=== PATIENT | female | born 1960 | race American Indian/Alaskan Native ===

== ENCOUNTER 2018-04-29 15:30 | Emergency (ER) | payer MEDICAID, OTHER, SELFPAY ==
[2018-04-29 15:48] VITALS: BP 145/84; PULSE 82; RESP 16; TEMP 35.6; O2SAT 100; BMI 35.9
[2018-04-29 17:37] LABS: RBC Urine None Seen (0-5/HPF)
[2018-04-29 17:47] LABS: Bacteria Urine Many (>30); Culture Indicated Urine Specimen Cultured; WBC Urine 5-10/HPF (0-5/HPF)
[2018-04-29 18:10] VITALS: BP 110/82; PULSE 79; RESP 18; O2SAT 98
--- NOTE | 2018-04-29 18:39 | ED.ABDPAIN ---
HPI - Abdominal Pain General Chief Complaint: Abdominal Pain Stated Complaint: stomach pain all week, nausea Time Seen by Provider: 04/29/18 18:07 Source: patient Mode of arrival: ambulatory Limitations: no limitations History of Present Illness HPI narrative: 57-year-old female here for evaluation of a couple days of right lower quadrant abdominal pain and dysuria. Patient states that he has been going on for the past couple days. No back pain. Has had some nausea. Nothing makes it better. Nothing makes it worse. She states that she had this exact same pain a couple months ago was seen in the emergency department and was diagnosed with a urinary tract infection was given antibiotics and she states that the symptoms went away. She stated that it was the exact pain that she has now. Related Data Home Medications Medication Instructions Recorded Confirmed acetaminophen 650 mg PO Q8H PRN #0 03/05/18 04/29/18 ascorbic acid (vitamin C) 500 mg PO QDAY #0 03/05/18 04/29/18 atorvastatin 40 mg PO QDAY #0 03/05/18 04/29/18 bisacodyl 10 mg NC PRN PRN #0 03/05/18 04/29/18 bisacodyl [Correctol] 10 mg PO PRN PRN #0 03/05/18 04/29/18 bisacodyl [Fleet Laxative] 5 mg PO PRN PRN #0 03/05/18 04/29/18 buprenorphine-naloxone [Suboxone] 1 preethi SUBLINGUAL QDAY #0 03/05/18 04/29/18 buspirone 30 mg PO BID #0 03/05/18 04/29/18 ferrous sulfate [Iron (ferrous 1 tab PO DAILY #0 03/05/18 04/29/18 sulfate)] fluticasone [Flonase Allergy 1 spray INTRANASAL QDAY #0 03/05/18 04/29/18 Relief] fluticasone-salmeterol [Advair HFA] 1 puff INH BID #0 03/05/18 04/29/18 hydroxyzine HCl 25 ng PO TID PRN #0 03/05/18 04/29/18 loratadine 10 mg PO QDAY #0 03/05/18 04/29/18 nortriptyline 25 mg PO HS #0 03/05/18 04/29/18 ondansetron HCl 4 mg PO Q4HP PRN #0 03/05/18 04/29/18 pantoprazole 40 mg PO BID #0 03/05/18 04/29/18 ranitidine HCl 150 mg PO BID #0 03/05/18 04/29/18 valsartan 160 mg PO QDAY #0 03/05/18 04/29/18 Lactobacillus acidophilus 1 cap PO BID 04/29/18 04/29/18 [Acidophilus] albuterol sulfate 2 puff INHALATION Q4H PRN 04/29/18 04/29/18 clotrimazole 1 applic TOPICAL Q12H PRN 04/29/18 04/29/18 ipratropium-albuterol [Combivent 1 puff INHALATION Q6H PRN 04/29/18 04/29/18 Respimat] lidocaine 1 patch TOPICAL DAILY 04/29/18 04/29/18 sertraline 150 mg PO DAILY 04/29/18 04/29/18 Previous Rx's Medication Instructions Recorded carvedilol [Coreg] 6.25 mg PO BID #60 tab 09/03/17 clopidogrel [Plavix] 75 mg PO QDAY #30 tab 09/03/17 ondansetron [Zofran ODT] 4 mg PO Q6H PRN #10 tab 04/29/18 sulfamethoxazole-trimethoprim 1 tab PO BID 3 Days #6 tab 04/29/18 [Bactrim DS] Allergies Allergy/AdvReac Type Severity Reaction Status Date / Time aspirin [ASPIRIN] Allergy Unknown Verified 04/29/18 15:48 ibuprofen [IBUPROFEN] Allergy Unknown Verified 04/29/18 15:48 ketorolac [From TORADOL] Allergy Unknown Verified 04/29/18 15:48 tramadol [TRAMADOL] Allergy Unknown Verified 04/29/18 15:48 Review of Systems Constitutional Denies chills, Denies fatigue, Denies fever(s), Denies lethargy and Denies weakness ENT Ears, Nose, Mouth, and Throat: Denies dysphagia Cardiovascular Denies chest pain, Denies irregular heart rhythm, Denies lightheadedness, Denies palpitations, Denies dyspnea, Denies dyspnea on exertion and Denies orthopnea Respiratory Denies cough, Denies dyspnea, Denies dyspnea on exertion and Denies wheezing Gastrointestinal Gastrointestinal: Reports abdominal pain (Right lower quadrant), Denies dysphagia, Denies diarrhea and Reports nausea Genitourinary Reports dysuria Musculoskeletal Denies back pain, Denies muscle weakness, Denies numbness and Denies tingling Integumentary/Breasts Denies pruritus, Denies erythema, Denies rash and Denies wounds Neurologic Denies numbness, Denies tingling and Denies weakness Endocrine Denies fatigue, Denies flushing and Denies palpitations Hematologic/Lymphatic Denies easy bruising Allergic/Immunologic Denies wheezing [facility] Medical History COPD (chronic obstructive pulmonary disease) (Acute) Stroke (Acute) Surgical History History of bilateral knee replacement (Acute) Social History Smoking Status: Former smoker Exam Initial Vital Signs Initial Vital Signs: Vital Signs Temperature 96.0 F L 04/29/18 15:48 Pulse Rate 82 04/29/18 15:48 Respiratory Rate 16 04/29/18 15:48 Blood Pressure 145/84 H 04/29/18 15:48 Pulse Oximetry 100 04/29/18 15:48 Chest Chest: normal inspection of the chest Resp Effort & Inspection: normal respiratory effort, able to speak in complete sentences, no respiratory distress and no use of accessory muscles Auscultation: clear to auscultation bilaterally, no rales, no rhonchi and no wheezes Cardio Rate: regular rate Rhythm: regular rhythm Heart Sounds: no click, no gallops, no murmurs and no rubs Pulses: normal peripheral pulses GI Inspection: normal to inspection and non-distended Palpation: soft, No firm, No guarding, No rigid and tender (Right lower quadrant) Back/Spine/Pelvis Back: No CVA tenderness Skin General: no rashes or lesions noted, No jaundice and No petechiae Neuro General: alert, oriented x3, gait normal and no focal motor deficits Speech: speech normal Extrem General: full ROM, no clubbing, cyanosis or edema, no pedal edema and no calf tenderness Course Orders Ordered: ED Orders 04/29/18 17:33 Urine Culture Stat Urine Microscopic Stat Discontinued Medications Acetaminophen (Tylenol) 650 mg PO NOW ONE Stop: 04/29/18 18:54 Last Admin: 04/29/18 18:55 Dose: 650 mg Trimethoprim/Sulfamethoxazole (Bactrim Ds) 1 tab PO NOW ONE Stop: 04/29/18 18:44 Last Admin: 04/29/18 18:52 Dose: 1 tab Vital Signs - 8 hr 04/29/18 18:10 Pulse Rate 79 Respiratory Rate 18 Blood Pressure [Left Arm] 110/82 H Pulse Oximetry 98 MDM - Abdominal Pain Lab Data Attestation: I reviewed the patient's lab results. Lab Results 04/29/18 Range/Units 17:33 Urine RBC None seen (0-5/HPF) Urine WBC 5-10/hpf H (0-5/HPF) Urine Bacteria Many (>30) H (None) Ur Culture Indicated? Specimen cultured Micro UA Comment Not Reportable MDM Narrative Medical decision making narrative: Patient with urinalysis consistent with urinary tract infection. She has no signs of pyelonephritis. She does have right lower quadrant pain and considered other intra-abdominal pathology however patient states that this is the exact pain that she had a month or so ago where she was diagnosed with the urinary tract infection and that the symptoms got better with antibiotics. Will hold on radiologic studies for now. She was given return precautions. She was given a 1st dose of antibiotics here in the emergency department and a prescription for antibiotics to take at home. She expressed understanding and agreement with plan. Discharge Plan Departure Patient Disposition: Home, Self-Care Clinical Impression: UTI (urinary tract infection), Abdominal pain Discharge Date/Time: 04/29/18 19:08 Interventions: ED Discharge Assessment Last Done: 04/29/18 19:15 Instructions: DI for Abdominal Pain-Adult Activity Restrictions/Additional Instructions: Recommend that you take all of your antibiotics as directed. Return to the emergency department for any new or worsening symptoms, inability to take your medications, vomiting despite the anti nausea medication, or any other concerning symptoms. Prescriptions: New sulfamethoxazole-trimethoprim [Bactrim DS] 800-160 mg tablet 1 tab PO BID 3 Days Qty: 6 RF: 0 ondansetron [Zofran ODT] 4 mg tablet,disintegrating 4 mg PO Q6H PRN (Reason: nausea and vomiting) Qty: 10 RF: 0 No Action carvedilol [Coreg] 6.25 MG tablet 6.25 mg PO BID Qty: 60 RF: 5 clopidogrel [Plavix] 75 MG tablet 75 mg PO QDAY Qty: 30 RF: 5 ascorbic acid (vitamin C) 500 MG tablet 500 mg PO QDAY Qty: 0 RF: 0 atorvastatin 40 MG tablet 40 mg PO QDAY Qty: 0 RF: 0 ferrous sulfate [Iron (ferrous sulfate)] 325 MG tablet 1 tab PO DAILY Qty: 0 RF: 0 fluticasone [Flonase Allergy Relief] 9.9 ML spray,suspension 1 spray Intranasal QDAY Qty: 0 RF: 0 loratadine 10 MG tablet 10 mg PO QDAY Qty: 0 RF: 0 nortriptyline 25 MG capsule 25 mg PO HS Qty: 0 RF: 0 pantoprazole 40 MG tablet,delayed release (DR/EC) 40 mg PO BID Qty: 0 RF: 0 buprenorphine-naloxone [Suboxone] 12 MG/3 MG film 1 preethi Sublingual QDAY Qty: 0 RF: 0 valsartan 160 MG tablet 160 mg PO QDAY Qty: 0 RF: 0 buspirone 30 MG tablet 30 mg PO BID Qty: 0 RF: 0 fluticasone-salmeterol [Advair HFA] 115 MCG/21 MCG HFA aerosol inhaler 1 puff INH BID Qty: 0 RF: 0 ranitidine HCl 150 MG tablet 150 mg PO BID Qty: 0 RF: 0 acetaminophen 325 MG tablet 650 mg PO Q8H PRN (Reason: Fever Or Pain) Qty: 0 RF: 0 bisacodyl 10 MG suppository 10 mg NC PRN PRN (Reason: Constipation) Qty: 0 RF: 0 bisacodyl [Fleet Laxative] 5 MG tablet,delayed release (DR/EC) 5 mg PO PRN PRN (Reason: Constipation) Qty: 0 RF: 0 bisacodyl [Correctol] 5 MG tablet 10 mg PO PRN PRN (Reason: Constipation) Qty: 0 RF: 0 hydroxyzine HCl 25 MG tablet 25 ng PO TID PRN (Reason: HIVES) Qty: 0 RF: 0 ondansetron HCl 4 MG tablet 4 mg PO Q4HP PRN (Reason: Nausea) Qty: 0 RF: 0 lidocaine 5 % Adhesive Patch,Medicated 1 patch TOPICAL DAILY RF: 0 Lactobacillus acidophilus [Acidophilus] Capsule 1 cap PO BID RF: 0 sertraline 50 MG tablet 150 mg PO DAILY RF: 0 albuterol sulfate 90 mcg/actuation Hfa Aerosol Inhaler 2 puff Inhalation Q4H PRN (Reason: Shortness Of Breath) RF: 0 ipratropium-albuterol [Combivent Respimat] 20-100 mcg/actuation Mist 1 puff INHALATION Q6H PRN (Reason: COPD) RF: 0 clotrimazole 1 % cream 1 applic Topical Q12H PRN (Reason: Rash) RF: 0
[2018-04-29] MEDS: SULFA/TRIMETH 800/160 (DS) TABLET 1 TAB PO (18:52)
[2018-04-29] MEDS: ACETAMINOPHEN 325 MG TABLET 650 MG PO (18:55)
== END 2018-04-29 19:08 | disposition home or self-care (01) ==
PROVIDERS: Internal Medicine; Emergency Provider Emergency Medicine; PCP Physician Assistant
DX: N39.0 Urinary tract infection, site not specified (principal); R10.9 Unspecified abdominal pain
CPT/HCPCS: 81003; 81015; 87086; 87186; 99282; 99283

== ENCOUNTER 2019-01-15 19:15 | Emergency (ER) | payer MEDICAID, SELFPAY ==
[2019-01-15 19:48] VITALS: BP 110/62; PULSE 75; RESP 18; TEMP 36.8; O2SAT 98
--- NOTE | 2019-01-15 19:54 | DI.RAD.S_ITS ---
PROCEDURE: XR CHEST 2V INDICATIONS: cough, chills, COPD TECHNIQUE: 2 views of the chest were acquired. COMPARISON: [facility], CR, XR CHEST 1 VIEW, 12/27/2018, 23:[address]. [facility], CR, CHEST 1 VIEW, 03/05/2018, 16:44. FINDINGS: Surgical changes and devices: None. Lungs and pleura: Lungs are clear. No pleural effusions or pneumothorax. Mediastinum: Mediastinal contours are normal. Heart size is normal. Bones and chest wall: No suspicious bony abnormalities. Soft tissues appear unremarkable. IMPRESSION: Normal chest, stable. Dictated by: Michaela Huffman M.D. on 01/15/2019 at 20:13 Approved by: Michaela Huffman M.D. on 01/15/2019 at 20:19
[2019-01-15 20:22] LABS: Influenza A and B by PCR Rapid Negative (Negative)
--- NOTE | 2019-01-15 21:54 | PC.NURSE ---
Called by registration stating pt had left.
--- NOTE | 2019-01-17 05:49 | ED.ABDPAIN ---
HPI - Abdominal Pain General Chief Complaint: Abdominal Pain Stated Complaint: throwing up for a couple days Related Data Home Medications Medication Instructions Recorded Confirmed ascorbic acid (vitamin C) 500 mg PO QDAY #0 03/05/18 04/29/18 atorvastatin 40 mg PO QDAY #0 03/05/18 04/29/18 bisacodyl 10 mg OK PRN PRN #0 03/05/18 04/29/18 bisacodyl [Correctol] 10 mg PO PRN PRN #0 03/05/18 04/29/18 bisacodyl [Fleet Laxative] 5 mg PO PRN PRN #0 03/05/18 04/29/18 buprenorphine-naloxone [Suboxone] 1 preethi SUBLINGUAL QDAY #0 03/05/18 04/29/18 buspirone 30 mg PO BID #0 03/05/18 04/29/18 ferrous sulfate [Iron (ferrous 1 tab PO DAILY #0 03/05/18 04/29/18 sulfate)] fluticasone [Flonase Allergy 1 spray INTRANASAL QDAY #0 03/05/18 04/29/18 Relief] fluticasone-salmeterol [Advair HFA] 1 puff INH BID #0 03/05/18 04/29/18 hydroxyzine HCl 25 ng PO TID PRN #0 03/05/18 04/29/18 loratadine 10 mg PO QDAY #0 03/05/18 04/29/18 nortriptyline 25 mg PO HS #0 03/05/18 04/29/18 ondansetron HCl 4 mg PO Q4HP PRN #0 03/05/18 04/29/18 pantoprazole 40 mg PO BID #0 03/05/18 04/29/18 ranitidine HCl 150 mg PO BID #0 03/05/18 04/29/18 valsartan 160 mg PO QDAY #0 03/05/18 04/29/18 Lactobacillus acidophilus 1 cap PO BID 04/29/18 04/29/18 [Acidophilus] albuterol sulfate 2 puff INHALATION Q4H PRN 04/29/18 04/29/18 clotrimazole 1 applic TOPICAL Q12H PRN 04/29/18 04/29/18 ipratropium-albuterol [Combivent 1 puff INHALATION Q6H PRN 04/29/18 04/29/18 Respimat] lidocaine 1 patch TOPICAL DAILY 04/29/18 04/29/18 sertraline 150 mg PO DAILY 04/29/18 04/29/18 Previous Rx's Medication Instructions Recorded carvedilol [Coreg] 6.25 mg PO BID #60 tab 09/03/17 clopidogrel [Plavix] 75 mg PO QDAY #30 tab 09/03/17 ondansetron [Zofran ODT] 4 mg PO Q6H PRN #10 tab 04/29/18 acetaminophen 325 mg tablet 650 mg PO Q8H PRN #100 tab 11/29/18 Allergies Allergy/AdvReac Type Severity Reaction Status Date / Time aspirin [ASPIRIN] Allergy Unknown Verified 01/15/19 19:53 ibuprofen [IBUPROFEN] Allergy Unknown Verified 01/15/19 19:53 ketorolac [From TORADOL] Allergy Unknown Verified 01/15/19 19:53 tramadol [TRAMADOL] Allergy Unknown Verified 01/15/19 19:53 PFSH Social History Smoking Status: Former smoker Exam Initial Vital Signs Initial Vital Signs: Vital Signs Temperature 98.3 F 01/15/19 19:48 Pulse Rate 75 01/15/19 19:48 Respiratory Rate 18 01/15/19 19:48 Blood Pressure 110/62 01/15/19 19:48 Pulse Oximetry 98 01/15/19 19:48 Course Orders Ordered: Discontinued Medications Ondansetron HCl (Zofran) 4 mg IV NOW ONE Stop: 01/15/19 19:56 MDM - Abdominal Pain Lab Data Lab Results 01/15/19 Range/Units 19:53 Influenza A & B (PCR) Negative (Negative) Discharge Plan Departure Patient Disposition: Left Without Being Seen Clinical Impression: Patient left without being seen Discharge Date/Time: 01/15/19 21:55 Interventions: ED Discharge Assessment Last Done: 01/15/19 22:28
== END 2019-01-15 21:55 | disposition left against medical advice (07) ==
PROVIDERS: Emergency Provider Emergency Medicine; PCP Physician Assistant
DX: R10.9 Unspecified abdominal pain (principal)
CPT/HCPCS: 71046; 87400; 99282

== ENCOUNTER 2019-12-07 04:39 | Emergency (ER) | payer MEDICAID, SELFPAY ==
--- NOTE | 2019-12-07 04:48 | ED_ITS ---
HPI - General Adult <Nacho Santizo DO - Last Filed: 12/07/19 21:35> General Chief complaint: Extremity Problem,Nontraumatic Stated complaint: ETOH Time Seen by Provider: 12/07/19 04:48 Source: patient and EMS Mode of arrival: EMS Limitations: language barrier and other (Intoxication) History of Present Illness HPI narrative: Patient is a 59-year-old female sent over from the [facility] for concerns of wheezing and intoxication. EMS reports that they were called because the care facility found the patient intoxicated with upwards of 8 mini bottles of vodka around her. Patient did tell EMS that she did not fall. Did not hit her head. Initially there was reports that the patient was wheezing. In our EMR she does have a history of COPD and is on albuterol. EMS stated that she was not wheezing upon their arrival. They provided no nebulizer treatments and round. They stated that the care facility wanted the patient evaluated because of the intoxication. EMS stated that initially the patient did not want to come to the ER but then stated that she did want a come. Complaining of right hip pain. No reports of falls. Related Data Home Medications Medication Instructions Recorded Confirmed ranitidine HCl 150 mg PO BID #0 03/05/18 12/07/19 albuterol sulfate 2 puff INHALATION Q4H PRN 04/29/18 12/07/19 clotrimazole 1 applic TOPICAL Q12H PRN 04/29/18 12/07/19 acetaminophen 650 mg PO Q4H PRN 12/07/19 12/07/19 acetaminophen [Acetaminophen Extra 500 - 1,000 mg PO Q8H PRN 12/07/19 12/07/19 Strength] albuterol sulfate 2.5 mg INHALATION Q4H PRN 12/07/19 12/07/19 carvedilol 12.5 mg PO BID 12/07/19 12/07/19 hydrochlorothiazide 12.5 mg PO QAM 12/07/19 12/07/19 Allergies Allergy/AdvReac Type Severity Reaction Status Date / Time aspirin [ASPIRIN] Allergy Unknown Verified 01/15/19 19:53 ibuprofen [IBUPROFEN] Allergy Unknown Verified 01/15/19 19:53 ketorolac [From TORADOL] Allergy Unknown Verified 01/15/19 19:53 tramadol [TRAMADOL] Allergy Unknown Verified 01/15/19 19:53 Review of Systems <DO Ngoc Weiss Last Filed: 12/07/19 21:35> Respiratory Respiratory: Reports wheezing (Patient denies this) Gastrointestinal Gastrointestinal: Denies abdominal pain Musculoskeletal Comments: Right hip pain Neurologic Neurologic: Reports behavioral changes Psychiatric Psychiatric: Reports behavioral changes Comments: Intoxication Allergic/Immunologic Allergic/Immunologic: Reports wheezing (Patient denies this) Patient History <DO Ngoc Weiss Last Filed: 12/07/19 21:35> Medical History COPD (chronic obstructive pulmonary disease) (Acute) Stroke (Acute) Surgical History History of bilateral knee replacement (Acute) Social History Smoking Status: Former smoker Smoking Status: Former smoker alcohol intake frequency: 0-2 drinks per day Substance Use Type: does not use Exam <DO Ngoc Weiss Last Filed: 12/07/19 21:35> Initial Vital Signs Initial Vital Signs: Vital Signs Temperature 97.5 F L 12/07/19 04:56 Pulse Rate 84 12/07/19 04:56 Respiratory Rate 20 12/07/19 04:56 Blood Pressure 121/66 12/07/19 04:56 Pulse Oximetry 95 12/07/19 04:56 Const Orientation: awake, oriented to place and oriented to time HENMT Head: normal to inspection and normocephalic Resp Effort & Inspection: normal respiratory effort Auscultation: clear to auscultation bilaterally Cardio Rate: regular rate Rhythm: regular rhythm Skin Lesions: no lesions Rashes: no rashes Neuro Other: Patient does move all 4 extremities. Was speaking Persian upon arrival however can speaking Sami. Knew that she was in [place] , knew the year, new or date. Knew that she was drinking this evening. Extrem Other: Moves all 4 extremities spontaneously. Complaining of right hip pain. Psych Appearance: well kempt <Mariaa Pierre DO - Last Filed: 12/07/19 11:44> Initial Vital Signs Initial Vital Signs: Vital Signs Temperature 97.5 F L 12/07/19 04:56 Pulse Rate 84 12/07/19 04:56 Respiratory Rate 20 12/07/19 04:56 Blood Pressure 121/66 12/07/19 04:56 Pulse Oximetry 95 12/07/19 04:56 Course <DO Ngoc Weiss Last Filed: 12/07/19 21:35> Orders Ordered: Discontinued Medications Acetaminophen (Tylenol) 975 mg PO NOW ONE Stop: 12/07/19 09:54 Last Admin: 12/07/19 10:00 Dose: 975 mg Documented by: [facility] Vital Signs Vital signs: Vital Signs - 8 hr 12/07/19 04:56 12/07/19 05:49 12/07/19 10:03 Temperature 97.5 F L Pulse Rate 84 90 77 Respiratory Rate 20 29 H 17 Blood Pressure 121/66 Blood Pressure [Right Wrist] 138/73 152/73 H Pulse Oximetry 95 97 98 <DO Ngoc Lang Last Filed: 12/07/19 11:44> Orders Ordered: Discontinued Medications Acetaminophen (Tylenol) 975 mg PO NOW ONE Stop: 12/07/19 09:54 Last Admin: 12/07/19 10:00 Dose: 975 mg Documented by: [facility]I Vital Signs Vital signs: Vital Signs - 8 hr 12/07/19 04:56 12/07/19 05:49 12/07/19 10:03 Temperature 97.5 F L Pulse Rate 84 90 77 Respiratory Rate 20 29 H 17 Blood Pressure 121/66 Blood Pressure [Right Wrist] 138/73 152/73 H Pulse Oximetry 95 97 98 Medical Decision Making <DO Ngoc Weiss Last Filed: 12/07/19 21:35> Imaging Data Extremity x-ray #1: Radiologist's Impression: Right hip DJD MDM Narrative Medical decision making narrative: Patient was complaining of right hip pain. Initial x-ray I had some concern about potential compression fracture. Radiologic read shows no acute fractures. Patient has been able to stand on her hip since this time. She has use the bedside commode. She has absent intoxicated. Other signs of trauma. No family listed in the EMR. Will watch the patient in the emergency department until she is clinically sober and can be dispositioned back to her assisted living facility. Care turned over to day provider. <DO Ngoc Lang Last Filed: 12/07/19 11:44> Imaging Data Extremity x-ray #1: Radiologist's Impression: PROCEDURE: XR HIP W PEL IF DONE RT 2V INDICATIONS: Pain eval for fracture or dislocation TECHNIQUE: AP pelvis with lateral view(s) of the right hip(s). COMPARISON: None. FINDINGS: Bones: No fractures or dislocations. Pelvic ring appears intact. No suspicious bony lesions. Moderate right hip osteoarthritis. Soft tissues: The visualized bowel gas pattern is normal. No suspicious soft tissue calcifications. IMPRESSION: No fracture. No acute osseous lesion. If symptoms and/or clinical suspicion for pathology persists, further assessment with repeat radiographs (7-10 days) or advanced imaging (e.g. CT, MRI or bone scan) may be helpful. Dictated by: Angela Rudd MD, PhD on 12/07/2019 at 9:33 Approved by: Angela Rudd MD, PhD on 12/07/2019 at 9:34 [facility] Narrative Medical decision making narrative: Patient signed out to me by Dr. Santizo, have seen evaluated patient myself, patient is awake alert oriented. She is ambulatory with a walker. X-rays negative. Discharge Plan Departure Patient Disposition: Home Clinical Impression: Alcohol intoxication Qualifiers: Complication of substance-induced condition: with unspecified complication Qualified Code(s): F10.929 - Alcohol use, unspecified with intoxication, unspecified Discharge Date/Time: 12/07/19 10:40 Instructions: Alcohol Use Disorder Activity Restrictions/Additional Instructions: No driving for the next 24 hours or in the future if you partake in intoxicating substances. Continue all of your medications as directed. Recommend you contact your primary provider for follow-up in the next 2-3 days. Prescriptions: No Action ranitidine HCl 150 MG tablet 150 mg PO BID Qty: 0 RF: 0 albuterol sulfate 90 mcg/actuation Hfa Aerosol Inhaler 2 puff Inhalation Q4H PRN (Reason: Shortness Of Breath) RF: 0 clotrimazole 1 % cream 1 applic Topical Q12H PRN (Reason: Rash) RF: 0 acetaminophen 325 mg Tablet 650 mg PO Q4H PRN (Reason: Fever Or Pain) RF: 0 carvedilol 12.5 mg tablet 12.5 mg PO BID RF: 0 albuterol sulfate 2.5 mg /3 mL (0.083 %) Solution For Nebulization 2.5 mg inhalation Q4H PRN (Reason: Wheezing) RF: 0 acetaminophen [Acetaminophen Extra Strength] 500 mg Tablet 500 - 1,000 mg PO Q8H PRN (Reason: Fever Or Pain) RF: 0 hydrochlorothiazide 25 mg tablet 12.5 mg PO QAM RF: 0 Referrals: Cortez Plata PA-C [Primary Care Provider] - ED Sign-out <Nacho Santizo, - Last Filed: 12/07/19 21:35> Sign Out Provider Sign Out Attestation: Dr Santizo Co-Sign Statement: I was available for consultation during this patient's emergency department visit. This chart is signed by myself for administrative purposes only. I did not have direct contact with this patient during this visit. They were seen independently by kenneth DIGGS.
[2019-12-07 04:56] VITALS: BP 121/66; PULSE 84; RESP 20; TEMP 36.4; O2SAT 95
[2019-12-07 05:49] VITALS: BP 138/73; PULSE 90; RESP 29; O2SAT 97
--- NOTE | 2019-12-07 09:52 | PC.NURSE ---
Patient ambulated in hallways to bathroom with walker with steady gait. Ok to DC per Dr. Pierre.
[2019-12-07] MEDS: ACETAMINOPHEN 325 MG TABLET 975 MG PO (10:00)
--- NOTE | 2019-12-07 10:01 | PC.NURSE ---
0940 Patient dressed and sitting up in wheelchair in room.
--- NOTE | 2019-12-07 10:02 | PC.NURSE ---
0980 Patient sitting eating breakfast tray and drinking coffee/orange juice. I called [facility] and they will come and get the patient. Nurse to nurse report given.
[2019-12-07 10:03] VITALS: BP 152/73; PULSE 77; RESP 17; O2SAT 98
== END 2019-12-07 10:40 | disposition home or self-care (01) ==
PROVIDERS: Emergency Provider Emergency Medicine; PCP Physician Assistant
DX: F10.929 Alcohol use, unspecified with intoxication, unspecified (principal); M25.551 Pain in right hip
CPT/HCPCS: 73502; 99283

== ENCOUNTER → 2020-01-02 17:37 | Outpatient (ROUT) | payer MEDICAID, SELFPAY ==
[2020-01-02 17:40] LABS: RBC Urine None Seen (0-5/HPF)
[2020-01-02 17:50] LABS: Appearance Urine UA SL CLOUDY; Bilirubin Urine UA NEGATIVE (NEGATIVE); Color Urine UA YELLOW; Glucose Urine UA NEGATIVE (Negative); Ketones Urine UA NEGATIVE (NEGATIVE); Leukocyte Esterase Urine UA TRACE (NEGATIVE); Nitrite Urine UA NEGATIVE (Negative); Occult Blood Urine UA NEGATIVE (Negative); Protein Urine UA NEGATIVE (Negative); Urobilinogen Urine UA 0.2 E.U./dL (0.2)
[2020-01-02 18:01] LABS: Bacteria Urine Many (>30); Culture Indicated Urine Specimen Cultured; Squamous Epithelial Cell Urine 1-5 /HPF (0-5/HPF); WBC Urine 5-10/HPF (0-5/HPF)
== END ==
PROVIDERS: PCP Physician Assistant
DX: R30.0 Dysuria (principal); R35.0 Frequency of micturition; R39.15 Urgency of urination
CPT/HCPCS: 81001; 87077; 87086; 87186

== ENCOUNTER 2020-01-30 19:29 | Emergency (ER) | payer MEDICAID, SELFPAY ==
[2020-01-30 19:25] VITALS: BP 194/97; PULSE 72; RESP 24; TEMP 36.8; O2SAT 94
--- NOTE | 2020-01-30 19:40 | DI.RAD.S_ITS ---
PROCEDURE: XR HIP W PEL IF DONE RT 2V INDICATIONS: fall, right hip pain TECHNIQUE: AP pelvis with lateral view(s) of the right hip(s). COMPARISON: [facility], , XR HIP W PEL IF DONE RT 2V, 12/07/2019, 4:53. FINDINGS: Bones: Moderate to severe right hip joint osteoarthritic changes are seen. No fractures or dislocations. No evidence of avascular necrosis of femoral head. Pelvic ring appears intact. No suspicious bony lesions. Soft tissues: The visualized bowel gas pattern is normal. No suspicious soft tissue calcifications. IMPRESSION: Moderate to severe right hip joint osteoarthritis. No acute fracture or dislocation. Dictated by: Leoncio Adair M.D. on 01/30/2020 at 20:49 Approved by: Leoncio Adair M.D. on 01/30/2020 at 20:50
--- NOTE | 2020-01-30 19:40 | DI.RAD.S_ITS ---
PROCEDURE: XR CHEST 1V INDICATIONS: COPD TECHNIQUE: One view of the chest was acquired. COMPARISON: [facility], CR, XR CHEST 2V, 01/15/2019, 19:59. FINDINGS: Surgical changes and devices: None. Lungs and pleura: Lungs are clear. No pleural effusions or pneumothorax. Mediastinum: Mediastinal contours appear normal. Heart size is normal. Bones and chest wall: No suspicious bony lesions. Overlying soft tissues appear unremarkable. IMPRESSION: No acute cardiopulmonary pathology. Dictated by: Leoncio Adair M.D. on 01/30/2020 at 20:50 Approved by: Leoncio Adair M.D. on 01/30/2020 at 20:50
--- NOTE | 2020-01-30 19:40 | DI.RAD.S_ITS ---
PROCEDURE: XR FEMUR RT MIN 2V INDICATIONS: Fall, right hip and femur pain TECHNIQUE: 4 views of the femur were acquired. COMPARISON: None. FINDINGS: Bones: There is prior right total knee arthroplasty. No gross hardware loosening or failure. Moderate to severe right hip joint osteoarthritic changes are seen. No fractures or dislocations. No suspicious bony lesions. Soft tissues: No suspicious soft tissue calcifications or masses. IMPRESSION: Moderate to severe right hip joint osteoarthritis. Prior right total knee arthroplasty. No acute right femoral fracture or dislocation. Dictated by: Leoncio Adair M.D. on 01/30/2020 at 20:48 Approved by: Leoncio Adair M.D. on 01/30/2020 at 20:49
--- NOTE | 2020-01-30 19:43 | ED_ITS ---
HPI - Fall General Chief Complaint: Fall Time Seen by Provider: 01/30/20 19:36 Source: patient and EMS Mode of arrival: EMS Limitations: no limitations History of Present Illness HPI Narrative: The patient is a resident of [facility]. She has COPD and CHF. She goes for walks. She was drinking alcohol tonight. She fell outside the facility, estimated down time was 20 minutes before she was found and assisted by EMS. She does have mild tenderness to back her head, no LOC. No neck pain. No spine pain. No upper extremity or chest injury. She has COPD and CHF, but is speaking in full sentences. She has no apparent dyspnea. She has pain to the right hip and right femur. She has no left hip pain. She denies tenderness in the knees, or lower extremities. She has no numbness or weakness in lower extremities. She denies orthopnea, chest pain, or peripheral edema at the time arrival. Related Data Home Medications Medication Instructions Recorded Confirmed ranitidine HCl 150 mg PO BID #0 03/05/18 12/07/19 albuterol sulfate 2 puff INHALATION Q4H PRN 04/29/18 12/07/19 clotrimazole 1 applic TOPICAL Q12H PRN 04/29/18 12/07/19 acetaminophen 650 mg PO Q4H PRN 12/07/19 12/07/19 acetaminophen [Acetaminophen Extra 500 - 1,000 mg PO Q8H PRN 12/07/19 12/07/19 Strength] albuterol sulfate 2.5 mg INHALATION Q4H PRN 12/07/19 12/07/19 carvedilol 12.5 mg PO BID 12/07/19 12/07/19 hydrochlorothiazide 12.5 mg PO QAM 12/07/19 12/07/19 Allergies Allergy/AdvReac Type Severity Reaction Status Date / Time aspirin [ASPIRIN] Allergy Unknown Verified 01/15/19 19:53 ibuprofen [IBUPROFEN] Allergy Unknown Verified 01/15/19 19:53 ketorolac [From TORADOL] Allergy Unknown Verified 01/15/19 19:53 tramadol [TRAMADOL] Allergy Unknown Verified 01/15/19 19:53 Review of Systems Review of Systems ROS Unobtainable: All systems reviewed & are unremarkable except as noted in HPI and below Constitutional Constitutional: Denies chills, Denies fever(s), Reports headache(s) and Denies weakness Eyes Eyes: Denies eye discharge, Denies irritation and Denies loss of vision ENT Ears, Nose, Mouth, and Throat: Denies change in voice, Reports headache(s), Denies neck pain and Denies sore throat Cardiovascular Cardiovascular: Denies chest pain, Denies dyspnea and Denies orthopnea Respiratory Respiratory: Denies cough, Denies dyspnea and Denies wheezing Gastrointestinal Gastrointestinal: Denies abdominal pain, Denies diarrhea, Denies nausea and Denies vomiting Musculoskeletal Musculoskeletal: Denies back pain and Denies neck pain Comments: No extremity injuries Integumentary/Breasts Skin/Breast: Denies pruritus, Denies erythema, Denies rash and Denies wounds Neurologic Neurologic: Denies confusion, Reports headache(s), Denies loss of vision and Denies weakness Psychiatric Psychiatric: Denies anxiety, Denies confusion and Denies depression Allergic/Immunologic Allergic/Immunologic: Denies wheezing Patient History Medical History COPD (chronic obstructive pulmonary disease) (Acute) Stroke (Acute) Surgical History History of bilateral knee replacement (Acute) Social History Smoking Status: Former smoker Smoking Status: Former smoker alcohol intake frequency: 0-2 drinks per day Substance Use Type: does not use Exam Initial Vital Signs Initial Vital Signs: Vital Signs Temperature 98.3 F 01/30/20 19:25 Pulse Rate 72 01/30/20 19:25 Respiratory Rate 24 01/30/20 19:25 Blood Pressure 194/97 H 01/30/20 19:25 Pulse Oximetry 94 01/30/20 19:25 Const General: cooperative and well developed Nutritional Appearance: well nourished Limitations: mental status not altered Other: She smells of alcohol. She answers questions correctly. [facility] Head: normal to inspection, normocephalic, No abrasion and other (Occipital tenderness without deformity) Ears: TM's normal bilaterally Nose: nares normal Face and sinus: normal facial exam Mouth: oral mucosae normal Throat: posterior oropharynx normal Eyes General: appearance normal, both eyes and all related structures Eyelids: eyelids normal Conjunctivae: conjunctivae normal Sclera: sclerae normal Pupils: PERRL EOM: EOM intact bilaterally Neck Neck: full ROM and No tender Chest Chest: normal inspection of the chest Resp Effort & Inspection: normal respiratory effort, able to speak in complete sen tences, no respiratory distress and no use of accessory muscles Auscultation: clear to auscultation bilaterally, no rales, no rhonchi and no wheezes Cardio Rate: regular rate Rhythm: regular rhythm Heart Sounds: S1 normal, S2 normal, no click, no gallops, no murmurs and no rubs Pulses: normal peripheral pulses GI Inspection: obesity Palpation: soft, no hepatosplenomegaly, No guarding and No tender Auscultation: normal bowel sounds Back/Spine/Pelvis Back: No CVA tenderness Cervical Spine: cervical ROM normal and No pain with cervical ROM Thoracic/Lumbar Spine: thoracic and lumbar spine normal to inspection Skin General: no rashes or lesions noted Neuro General: alert, oriented x3 and no focal motor deficits Speech: speech normal Extrem Other: Upper extremities are atraumatic. Left legs atraumatic. She has tenderness to the right hip and right femur. There is no abrasion or contusion. She has pain with motion, but no palpable defect. There is no shortening or malrotation to the right leg. The right knee and lower extremities otherwise intact. Dorsalis pedis pulses are normal both legs. Psych Appearance: disheveled Mental Status: mental status grossly normal Speech and Movement: speech and movement normal Attitude: cooperative Thought Content: normal Other: She is intoxicated, seems drowsy. Course Orders Ordered: ED Orders 01/30/20 19:25 Complete Blood Count AUTO DIFF Stat Comprehensive Metabolic Panel Stat Ethanol (ETOH) Stat Lipase Stat Magnesium Stat Prothrombin Time INR Stat 01/30/20 19:40 XR chest 1V Stat XR femur RT min 2V Stat XR hip w pel if done RT 2V Stat 01/30/20 19:46 EKG-12 Lead Stat 01/30/20 20:12 CT cervical spine wo con Stat CT head/brain wo con Stat Discontinued Medications Acetaminophen (Tylenol) 975 mg PO NOW ONE Stop: 01/30/20 20:55 Last Admin: 01/30/20 21:20 Dose: 975 mg Documented by: BEV Albuterol/Ipratropium (Duoneb) 3 ml INH NOW ONE Stop: 01/30/20 21:54 Last Admin: 01/30/20 21:59 Dose: 3 ml Documented by: ANTHONY Vital Signs Vital signs: Vital Signs - 8 hr 01/30/20 19:25 01/30/20 20:46 01/30/20 22:00 Temperature 98.3 F Pulse Rate 72 78 73 Respiratory Rate 24 22 24 Blood Pressure 194/97 H Blood Pressure [Right Wrist] 126/69 145/67 H Pulse Oximetry 94 99 100 MDM - Fall Lab Data Result diagrams: 01/30/20 19:25 01/30/20 19:25 Labs: Lab Results 01/30/20 01/30/20 01/30/20 Range/Units 19:25 19:25 19:25 WBC 9.8 (4.5-11.0) X10^3/uL RBC 4.35 (4.0-5.2) X10^6/uL Hgb 12.8 (12.0-16.0) g/dL Hct 38.3 (36-46) % MCV 87.9 (80-100) fL MCH 29.5 (26-34) PG MCHC 33.5 (30-36) % RDW 13.4 (11.6-14.8) % Plt Count 368 (150-400) X10^3/uL Neut % (Auto) 55.3 (50-75) % Lymph % (Auto) 32.6 (25-40) % Ware % (Auto) 8.7 (3-14) % Eos % (Auto) 2.2 (2-4) % Baso % (Auto) 1.2 (0-2) % Neut # (Auto) 5400 (8739-5867) /uL Lymph # (Auto) 3200 (6630-9261) /uL Ware # (Auto) 800 (0-900) /uL Eos # (Auto) 200 (0-450) /uL Baso # (Auto) 100 (0-100) /uL PT 11.0 (10.1-12.7) SECONDS INR 1.0 (0.9-1.3) Sodium 140 (137-145) mmol/L Potassium 3.7 (3.4-5.1) mmol/L Chloride 97 L (98-107) mmol/L Carbon Dioxide 32 (22-32) mmol/L BUN 11 (7-17) mg/dL Creatinine 0.50 L (0.52-1.04) mg/dL Estimated GFR > 60.0 (>60) mL/min BUN/Creatinine Ratio 22.0 (6-22) Glucose 93 (70-100) mg/dL Calcium 8.8 (8.4-10.2) mg/dL Magnesium 2.2 (1.6-2.3) mg/dL Total Bilirubin 0.3 (0.2-1.3) mg/dL AST 31 (14-36) IU/L ALT 15 (<35) IU/L Alkaline Phosphatase 114 (38-126) U/L Total Protein 7.7 (6.3-8.2) g/dL Albumin 4.4 (3.5-5.0) g/dL Globulin 3.3 (1.7-4.1) g/dL Albumin/Globulin Ratio 1.3 (1.0-2.8) Lipase 335 H (23-300) U/L Ethyl Alcohol 241 H ( - 10) mg/dL Point of Care Testing Glucose POC [address] scan - head: Radiologist's Impression: No acute process CT - cervical spine: Radiologist's Impression: No fracture. No acute findings. Chest x-ray: Radiologist's Impression: Normal Pelvis/right hip: Radiologist's Impression: Right hip osteoarthritis, no fracture. Right femur x-ray: Radiologist's Impression: Right hip osteoarthritis, no fracture Discharge Plan Departure Patient Disposition: Home Clinical Impression: Osteoarthritis of right hip Qualifiers: Osteoarthritis type: primary Qualified Code(s): M16.11 - Unilateral primary osteoarthritis, right hip Alcohol intoxication Qualifiers: Complication of substance-induced condition: uncomplicated Qualified Code(s): F10.920 - Alcohol use, unspecified with intoxication, uncomplicated Discharge Date/Time: 01/30/20 22:46 Instructions: DI for Osteoarthritis Activity Restrictions/Additional Instructions: Tylenol 2 tablets every 4 hours as needed for pain. I would advise you limit her alcohol intake, your alcohol intake likely contribute to the injury this evening. Recheck with her doctor in 1 week if the right hip is not feel any better. Return to the ER if necessary. Prescriptions: No Action ranitidine HCl 150 MG tablet 150 mg PO BID Qty: 0 RF: 0 albuterol sulfate 90 mcg/actuation Hfa Aerosol Inhaler 2 puff Inhalation Q4H PRN (Reason: Shortness Of Breath) RF: 0 clotrimazole 1 % cream 1 applic Topical Q12H PRN (Reason: Rash) RF: 0 acetaminophen 325 mg Tablet 650 mg PO Q4H PRN (Reason: Fever Or Pain) RF: 0 carvedilol 12.5 mg tablet 12.5 mg PO BID RF: 0 albuterol sulfate 2.5 mg /3 mL (0.083 %) Solution For Nebulization 2.5 mg inhalation Q4H PRN (Reason: Wheezing) RF: 0 acetaminophen [Acetaminophen Extra Strength] 500 mg Tablet 500 - 1,000 mg PO Q8H PRN (Reason: Fever Or Pain) RF: 0 hydrochlorothiazide 25 mg tablet 12.5 mg PO QAM RF: 0 Referrals: Leo Landa MD [Primary Care Provider] -
[2020-01-30 19:54] LABS: Add Manual Diff / Slide Review NO; Basophils Absolute Auto 100 /uL (0-100); Basophils Percent Auto 1.2 % (0-2); Eosinophils Absolute Auto 200 /uL (0-450); Eosinophils Percent Auto 2.2 % (2-4); Hematocrit 38.3 % (36-46); Hemoglobin 12.8 g/dL (12.0-16.0); Lymphocytes Absolute Auto 3200 /uL (1100-4500); Lymphocytes Percent Auto 32.6 % (25-40); Mean Corpuscular HGB Conc 33.5 % (30-36); Mean Corpuscular Hemoglobin 29.5 PG (26-34); Mean Corpuscular Volume 87.9 fL (80-100); Monocytes Absolute Auto 800 /uL (0-900); Monocytes Percent Auto 8.7 % (3-14); Neutrophils Absolute Auto 5400 /uL (1500-7000); Neutrophils Percent Auto 55.3 % (50-75); Platelet Count 368 X10^3/uL (150-400); Red Blood Cell Count 4.35 X10^6/uL (4.0-5.2); Red Cell Distribution Width 13.4 % (11.6-14.8); White Blood Cell Count 9.8 X10^3/uL (4.5-11.0)
--- NOTE | 2020-01-30 19:54 | PC.NURSE ---
Received patient from EMS. Pt w/ soaked clothing from waist down (able to wring out pants). Rolled to get out clothing and place warm blankets under her. No c.t.l.s spine tenderness. Moving all extremities equally well. C/o right hip pain. Unable to bend right leg w/o pain. + distal pulses. Pt w/ slurred speech consistent with etoh intoxication. monique placed r/t concern for fractured hip and pt needing to urinate but unable to tolerate bed pain. Monique placed with > 1000 cc.
[2020-01-30 20:00] LABS: Alanine Aminotransferase 15 IU/L (<35); Albumin 4.4 g/dL (3.5-5.0); Albumin Globulin Ratio 1.3 (1.0-2.8); Alkaline Phosphatase 114 U/L (38-126); Aspartate Aminotransferase 31 IU/L (14-36); Bilirubin Total 0.3 mg/dL (0.2-1.3); Blood Urea Nitrogen 11 mg/dL (7-17); Calcium 8.8 mg/dL (8.4-10.2); Carbon Dioxide 32 mmol/L (22-32); Chloride 97 mmol/L (98-107); Estimated Glomerular Filt Rate > 60.0 mL/min (>60); Ethanol (ETOH) 241 mg/dL; Globulin 3.3 g/dL (1.7-4.1); Glucose 93 mg/dL (70-100); HEMOLYSIS < 15 (0-50); Lipase 335 U/L (23-300); Magnesium 2.2 mg/dL (1.6-2.3); Potassium 3.7 mmol/L (3.4-5.1); Sodium 140 mmol/L (137-145); Total Protein 7.7 g/dL (6.3-8.2)
--- NOTE | 2020-01-30 20:12 | DI.CT.S_ITS ---
PROCEDURE: CT CERVICAL SPINE WO CON INDICATIONS: Fall. Intoxicated. Occipital head injury. TECHNIQUE: Noncontrast 3 mm thick sections acquired from the skull base to the T4 level. Sagittal and coronal reformats were then constructed. For radiation dose reduction, the following was used: automated exposure control, adjustment of mA and/or kV according to patient size. COMPARISON: None. FINDINGS: Image quality: Excellent. Bones: No fractures or dislocations. There is straightening of normal cervical lordosis. Moderate degenerative endplate changes and bilateral facet hypertrophic changes are noted throughout cervical spine causing mild to moderate central canal stenosis and mild bilateral neuroforaminal narrowing more prominent at C5-6 and C6-7 levels. Visualized superior ribs are intact. Soft tissues: Prevertebral soft tissues are normal in thickness. No paravertebral hematomas. No apical pneumothoraces. IMPRESSION: 1. No acute cervical spine fracture or dislocation. 2. Degenerative disc disease throughout cervical spine more prominent at C5-6 and C6-7 levels as above. Dictated by: Leoncio Adair M.D. on 01/30/2020 at 20:51 Approved by: Leoncio Adair M.D. on 01/30/2020 at 20:53
--- NOTE | 2020-01-30 20:12 | DI.CT.S_ITS ---
PROCEDURE: CT HEAD/BRAIN WO CON INDICATIONS: Intoxicated. Fall with occipital head injury. TECHNIQUE: Noncontrast 4.5 mm thick angled axial sections acquired from the foramen magnum to the vertex, with coronal and sagittal reformats. For radiation dose reduction, the following was used: automated exposure control, adjustment of mA and/or kV according to patient size. COMPARISON: None. FINDINGS: Image quality: Excellent. CSF spaces: Basal cisterns are patent. No extra-axial fluid collections. The ventricles are symmetric in size and shape. Brain: No intracranial bleeds or masses. There is cerebral volume loss for age, with resultant ventricular and sulcal prominence. There are periventricular and deep white matter chronic small vessel ischemic changes. There is intracranial internal carotid artery atherosclerosis. Skull and face: Calvarium and visualized facial bones appear intact, without suspicious lesions. Sinuses: Visualized sinuses and mastoids are clear. IMPRESSION: 1. No CT evidence of acute intracranial pathology. 2. No acute skull fracture. Dictated by: Leoncio Adair M.D. on 01/30/2020 at 20:50 Approved by: Leoncio Adair M.D. on 01/30/2020 at 20:51
[2020-01-30 20:46] VITALS: BP 126/69; PULSE 78; RESP 22; O2SAT 99
[2020-01-30] MEDS: ACETAMINOPHEN 325 MG TABLET 975 MG PO (21:20)
[2020-01-30] MEDS: ALBUTEROL/IPRATROPIUM 3 ML AMPUL INH (21:59)
[2020-01-30 22:00] VITALS: BP 145/67; PULSE 73; RESP 24; O2SAT 100
--- NOTE | 2020-01-30 22:43 | PC.NURSE ---
Pt ambulated in hallway with walker and stand-by assist. Tolerated well.
== END 2020-01-30 22:46 | disposition home or self-care (01) ==
PROVIDERS: Emergency Provider Emergency Medicine; PCP Specialist
DX: M16.11 Unilateral primary osteoarthritis, right hip (principal); F10.920 Alcohol use, unspecified with intoxication, uncomplicated; S09.90XA Unspecified injury of head, initial encounter; J44.9 Chronic obstructive pulmonary disease, unspecified; W19.XXXA Unspecified fall, initial encounter
CPT/HCPCS: 36415; 70450; 71045; 72125; 73502; 73552; 80053; 80320; 82962; 83690; 83735; 85025; 85610; 93005; 93010; 94640; 99285

== ENCOUNTER → 2020-02-20 20:44 | Outpatient (ROUT) | payer MEDICAID, SELFPAY ==
[2020-02-20 21:25] LABS: Influenza A - CEPHEID Flu A NEGATIVE (NEGATIVE); Influenza B - CEPHEID Flu B NEGATIVE (NEGATIVE)
[2020-02-23 05:35] LABS: COVID19 Sendout Not Detected (Not Detected)
== END ==
PROVIDERS: PCP Specialist; Visit Provider Family Medicine
DX: R05 Cough (principal); R68.83 Chills (without fever); J02.9 Acute pharyngitis, unspecified
CPT/HCPCS: 87502; 87635

== ENCOUNTER → 2020-03-12 15:43 | Outpatient (ROUT) | payer MEDICAID, SELFPAY ==
[2020-03-12 15:55] LABS: Appearance Urine UA SL CLOUDY; Bilirubin Urine UA NEGATIVE (NEGATIVE); Color Urine UA YELLOW; Glucose Urine UA NEGATIVE (Negative); Ketones Urine UA NEGATIVE (NEGATIVE); Leukocyte Esterase Urine UA 1+ (NEGATIVE); Nitrite Urine UA POSITIVE (Negative); Occult Blood Urine UA TRACE-INTACT (Negative); Protein Urine UA NEGATIVE (Negative); Urobilinogen Urine UA 0.2 E.U./dL (0.2)
[2020-03-12 16:21] LABS: pH Urine UA 5.5 (4.5-8.0)
[2020-03-12 16:24] LABS: RBC Urine 1-5/HPF (0-5/HPF); WBC Urine 30-100/HPF (0-5/HPF)
[2020-03-12 16:25] LABS: Bacteria Urine Many (>30); Culture Indicated Urine Specimen Cultured; Squamous Epithelial Cell Urine 1-5 /HPF (0-5/HPF)
== END ==
PROVIDERS: PCP Specialist; Visit Provider Family Medicine
DX: R35.0 Frequency of micturition (principal); R30.0 Dysuria
CPT/HCPCS: 81001; 87077; 87086; 87186

== ENCOUNTER → 2020-05-01 19:13 | Outpatient (ROUT) | payer MEDICAID, SELFPAY ==
[2020-05-01 19:22] LABS: Appearance Urine UA CLOUDY; Bilirubin Urine UA NEGATIVE (NEGATIVE); Color Urine UA YELLOW; Glucose Urine UA NEGATIVE (Negative); Ketones Urine UA NEGATIVE (NEGATIVE); Leukocyte Esterase Urine UA 2+ (NEGATIVE); Nitrite Urine UA NEGATIVE (Negative); Occult Blood Urine UA 1+ (Negative); Protein Urine UA NEGATIVE (Negative); Specific Gravity Urine UA 1.015 (1.000-1.035); Urobilinogen Urine UA 0.2 E.U./dL (0.2)
[2020-05-01 19:26] LABS: pH Urine UA 6.5 (4.5-8.0)
[2020-05-01 19:29] LABS: Bacteria Urine Many (>30); Culture Indicated Urine Specimen Cultured; RBC Urine 0-1/HPF (0-5/HPF); Squamous Epithelial Cell Urine 1-5 /HPF (0-5/HPF); Transitional Epi Cells Urine 1-5/HPF (0-5/HPF); WBC Urine >100/HPF (0-5/HPF)
== END ==
PROVIDERS: PCP Specialist; Visit Provider Family Medicine
DX: R30.0 Dysuria (principal); R35.0 Frequency of micturition; R39.15 Urgency of urination
CPT/HCPCS: 81001; 87077; 87086; 87186

== ENCOUNTER → 2020-05-03 08:11 | Outpatient (ROUT) | payer MEDICAID, SELFPAY ==
[2020-05-03 08:44] LABS: Add Manual Diff / Slide Review NO; Basophils Absolute Auto 100 /uL (0-100); Basophils Percent Auto 1.1 % (0-2); Eosinophils Absolute Auto 200 /uL (0-450); Eosinophils Percent Auto 2.9 % (2-4); Hematocrit 35.9 % (36-46); Hemoglobin 11.9 g/dL (12.0-16.0); Lymphocytes Absolute Auto 1700 /uL (1100-4500); Lymphocytes Percent Auto 24.5 % (25-40); Mean Corpuscular HGB Conc 33.2 % (30-36); Mean Corpuscular Hemoglobin 29.5 PG (26-34); Mean Corpuscular Volume 88.9 fL (80-100); Monocytes Absolute Auto 500 /uL (0-900); Monocytes Percent Auto 7.2 % (3-14); Neutrophils Absolute Auto 4400 /uL (1500-7000); Neutrophils Percent Auto 64.3 % (50-75); Platelet Count 325 X10^3/uL (150-400); Red Blood Cell Count 4.04 X10^6/uL (4.0-5.2); White Blood Cell Count 6.9 X10^3/uL (4.5-11.0)
[2020-05-03 08:46] LABS: Hemoglobin A1C% w Est Avg Glu 5.7 % (4.0-6.0)
[2020-05-03 08:52] LABS: Alanine Aminotransferase 16 IU/L (<35); Albumin Globulin Ratio 1.3 (1.0-2.8); Alkaline Phosphatase 117 U/L (38-126); Aspartate Aminotransferase 27 IU/L (14-36); BUN Creatinine Ratio 22.2 (6-22); Bilirubin Total 0.4 mg/dL (0.2-1.3); Blood Urea Nitrogen 12 mg/dL (7-17); Calcium 9.1 mg/dL (8.4-10.2); Carbon Dioxide 31 mmol/L (22-32); Chloride 104 mmol/L (98-107); Cholesterol 106 mg/dL (140-199); Estimated Glomerular Filt Rate > 60.0 mL/min (>60); Globulin 3.1 g/dL (1.7-4.1); Glucose 101 mg/dL (70-100); HDL Cholesterol 29 mg/dL (40-60); HEMOLYSIS 18 (0-50); LDL Cholesterol Calculated 52 mg/dL (<100); Potassium 4.1 mmol/L (3.4-5.1); Sodium 141 mmol/L (137-145); Total Protein 7.1 g/dL (6.3-8.2); Triglycerides 123 mg/dL (35-150)
== END ==
PROVIDERS: PCP Specialist; Visit Provider Family Medicine
DX: I10 Essential (primary) hypertension (principal); G89.29 Other chronic pain
CPT/HCPCS: 36415; 80053; 80061; 83036; 85025

== ENCOUNTER → 2020-05-16 18:33 | Outpatient (ROUT) | payer MEDICAID, SELFPAY ==
[2020-05-16 18:43] LABS: Appearance Urine UA CLEAR; Bilirubin Urine UA NEGATIVE (NEGATIVE); Color Urine UA YELLOW; Glucose Urine UA NEGATIVE (Negative); Ketones Urine UA NEGATIVE (NEGATIVE); Leukocyte Esterase Urine UA 1+ (NEGATIVE); Nitrite Urine UA NEGATIVE (Negative); Occult Blood Urine UA NEGATIVE (Negative); Protein Urine UA NEGATIVE (Negative); Specific Gravity Urine UA <=1.005 (1.000-1.035); Urobilinogen Urine UA 0.2 E.U./dL (0.2)
[2020-05-16 19:03] LABS: Bacteria Urine Moderate (10-30); Culture Indicated Urine Specimen Cultured; RBC Urine 0-1/HPF (0-5/HPF); Squamous Epithelial Cell Urine 0-1 /HPF (0-5/HPF); WBC Urine 10-30/HPF (0-5/HPF)
== END ==
PROVIDERS: PCP Specialist; Visit Provider Family Medicine
DX: R30.0 Dysuria (principal)
CPT/HCPCS: 81001; 87077; 87086; 87186

== ENCOUNTER 2020-06-26 09:03 | Inpatient (IN) | payer MEDICAID, SELFPAY ==
[2020-06-26] VITALS (21 sets, daily range): BP systolic 114–153; BP diastolic 65–108; PULSE 79–115; RESP 14–33; TEMP 36–37.4; O2SAT 92–99; BMI 40.8
--- NOTE | 2020-06-26 09:25 | DI.RAD.S_ITS ---
PROCEDURE: XR CHEST 1V INDICATIONS: Flu-like symptoms TECHNIQUE: One view of the chest was acquired. COMPARISON: [facility], CR, XR CHEST 1 VIEW, 09/09/2019, 18:25. [facility], CR, XR CHEST 1 VIEW, 10/11/2019, 18:11. [facility], CR, XR CHEST 1V, 01/30/2020, 19:40. FINDINGS: Surgical changes and devices: None. Lungs and pleura: Lungs are clear. No pleural effusions or pneumothorax. Mediastinum: Mediastinal contours appear normal. Heart size is normal. Bones and chest wall: No suspicious bony lesions. Overlying soft tissues appear unremarkable. IMPRESSION: No acute cardiopulmonary disease. Dictated by: Pearl Vidal M.D. on 06/26/2020 at 10:18 Approved by: Pearl Vidal M.D. on 06/26/2020 at 10:22
[2020-06-26] MEDS: ALBUTEROL HFA 200 PUFF/18 GM INH (COVID POS/VENT PTS) INH ×2 (09:31→10:16)
[2020-06-26 09:45] LABS: Add Manual Diff / Slide Review NO; Basophils Absolute Auto 100 /uL (0-100); Basophils Percent Auto 1.1 % (0-2); Eosinophils Absolute Auto 100 /uL (0-450); Eosinophils Percent Auto 0.6 % (2-4); Hematocrit 36.7 % (36-46); Hemoglobin 12.2 g/dL (12.0-16.0); Lymphocytes Absolute Auto 1200 /uL (1100-4500); Lymphocytes Percent Auto 11.3 % (25-40); Mean Corpuscular HGB Conc 33.2 % (30-36); Mean Corpuscular Hemoglobin 29.3 PG (26-34); Mean Corpuscular Volume 88.2 fL (80-100); Monocytes Absolute Auto 900 /uL (0-900); Monocytes Percent Auto 8.1 % (3-14); Neutrophils Absolute Auto 8600 /uL (1500-7000); Neutrophils Percent Auto 78.9 % (50-75); Platelet Count 311 X10^3/uL (150-400); Red Blood Cell Count 4.16 X10^6/uL (4.0-5.2); Red Cell Distribution Width 13.4 % (11.6-14.8); White Blood Cell Count 10.9 X10^3/uL (4.5-11.0)
[2020-06-26 09:47] LABS: Alanine Aminotransferase 18 IU/L (<35); Albumin 4.3 g/dL (3.5-5.0); Albumin Globulin Ratio 1.3 (1.0-2.8); Alkaline Phosphatase 130 U/L (38-126); Aspartate Aminotransferase 28 IU/L (14-36); BUN Creatinine Ratio 13.6 (6-22); Bilirubin Total 0.8 mg/dL (0.2-1.3); Blood Urea Nitrogen 8 mg/dL (7-17); Calcium 9.2 mg/dL (8.4-10.2); Carbon Dioxide 30 mmol/L (22-32); Chloride 100 mmol/L (98-107); D Dimer 413 ng/mL (<230); Estimated Glomerular Filt Rate > 60.0 mL/min (>60); Globulin 3.3 g/dL (1.7-4.1); Glucose 134 mg/dL (70-100); HEMOLYSIS < 15 (0-50); Sodium 137 mmol/L (137-145); Total Protein 7.6 g/dL (6.3-8.2)
[2020-06-26 09:51] LABS: C-Reactive Protein Quant 8.2 mg/dL (<1.0); Creatine Kinase 48 U/L (30-135); Lactate Dehydrogenase 527 U/L (313-618)
[2020-06-26 09:53] LABS: Lactate (Lactic Acid) 1.2 mmol/L (0.7-2.1)
[2020-06-26 09:59] LABS: NT-proBNP (BNP-Adult 18+) 265 pg/mL (<125); Troponin I < 0.012 ng/mL (0.01-0.034)
--- NOTE | 2020-06-26 10:01 | ED.SOB ---
HPI - SOB/Dyspnea General Chief Complaint: Shortness of Breath/Dyspnea Stated Complaint: SOB Time Seen by Provider: 06/26/20 09:12 Source: patient and EMS Mode of arrival: EMS Limitations: no limitations History of Present Illness HPI Narrative: Patient is a 59-year-old female resident of an assisted living care facility here in town with history of COPD and CHF presenting today with shortness of breath. He says it started yesterday and has progressively gotten worse. She was unable to lie flat last night due to difficulty breathing. She denies any edema in her legs. The facility noted that she had a temperature 100.5? but is afebrile here. She complains of chest tightness which is non radiating she says it hurts every time she breathes. She is coughing and has increased productive sputum. She also has had sick contacts recently. MD Complaint: shortness of breath Known history of: COPD and congestive heart failure Associated symptoms: chest pain, fever, cough, wheezing, sputum production and orthopnea Related Data Home Medications Medication Instructions Recorded Confirmed albuterol sulfate 2 puff INHALATION Q4H PRN 04/29/18 06/26/20 clotrimazole 1 applic TOPICAL Q12H PRN 04/29/18 06/26/20 acetaminophen [Acetaminophen Extra 500 mg PO Q4HR 12/07/19 06/26/20 Strength] albuterol sulfate 2.5 mg INHALATION Q4H PRN 12/07/19 06/26/20 carvedilol 12.5 mg PO BID 12/07/19 06/26/20 cetirizine [Zyrtec] 10 mg PO DAILY 06/26/20 06/26/20 cyclobenzaprine 5 mg PO TID PRN 06/26/20 06/26/20 diphenhydramine HCl 25 mg PO Q6H PRN 06/26/20 06/26/20 fluticasone furoate [Flonase 2 spray INTRANASAL BID 06/26/20 06/26/20 Sensimist] fluticasone propion-salmeterol 1 inh INHALATION BID 06/26/20 06/26/20 [Advair Diskus] hydrochlorothiazide 6.25 mg PO QAM 06/26/20 06/26/20 hydrocodone-acetaminophen [[place]] 1 tab PO Q12HR PRN 06/26/20 06/26/20 hydroxyzine HCl 25 mg PO TID PRN 06/26/20 06/26/20 hydroxyzine HCl 50 mg PO TID 06/26/20 06/26/20 ipratropium bromide 2 puff INHALATION QID 06/26/20 06/26/20 losartan 100 mg PO QAM 06/26/20 06/26/20 melatonin 3 mg PO BEDTIME 06/26/20 06/26/20 metformin 500 mg PO QAM 06/26/20 06/26/20 omeprazole 20 mg PO QAM 06/26/20 06/26/20 pregabalin 25 mg PO TID 06/26/20 06/26/20 sertraline 50 mg PO QAM 06/26/20 06/26/20 trazodone 25 mg PO BEDTIME PRN 06/26/20 06/26/20 Allergies Allergy/AdvReac Type Severity Reaction Status Date / Time aspirin [ASPIRIN] Allergy Unknown Verified 06/26/20 09:12 buprenorphine [From Suboxone] Allergy Unknown Verified 06/26/20 12:15 ibuprofen [IBUPROFEN] Allergy Unknown Verified 06/26/20 09:12 ketorolac [From TORADOL] Allergy Unknown Verified 06/26/20 09:12 methadone Allergy Unknown Verified 06/26/20 12:15 naloxone [From Suboxone] Allergy Unknown Verified 06/26/20 12:15 NSAIDS (Non-Steroidal Allergy Unknown Verified 06/26/20 12:15 Anti-Inflamma tramadol [TRAMADOL] Allergy Unknown Verified 06/26/20 09:12 Review of Systems Review of Systems ROS Unobtainable: All systems reviewed & are unremarkable except as noted in HPI and below Constitutional Constitutional: Reports body ache(s), Reports chills, Reports fatigue and Reports fever(s) Eyes Eyes: Denies change in vision, Denies eye discharge, Denies irritation and Denies loss of vision ENT Ears, Nose, Mouth, and Throat: Denies vertigo and Denies dizziness Cardiovascular Cardiovascular: Reports chest pain, Denies irregular heart rhythm, Denies lightheadedness, Denies palpitations, Reports dyspnea and Reports orthopnea Respiratory Respiratory: Reports as per HPI, Reports change in phlegm color, Reports chest congestion, Reports cough, Reports excessive phlegm production, Reports dyspnea and Reports wheezing Gastrointestinal Gastrointestinal: Denies abdominal pain, Denies change in bowel habits, Denies diarrhea, Denies nausea and Denies vomiting Musculoskeletal Musculoskeletal: Denies arthralgias, Denies back pain and Reports myalgias Integumentary/Breasts Skin/Breast: Denies pruritus, Denies erythema, Denies rash and Denies wounds Neurologic Neurologic: Denies confusion, Denies vertigo, Denies dizziness and Denies loss of vision Psychiatric Psychiatric: Denies confusion Endocrine Endocrine: Reports fatigue and Denies palpitations Allergic/Immunologic Allergic/Immunologic: Reports wheezing Patient History Medical History (Updated 06/26/20 @ 12:27 by Mariaa Pierre DO) Anxiety (Acute) COPD (chronic obstructive pulmonary disease) (Acute) Coronary artery disease (Acute) Other chronic pain (Acute) Pain in right hip (Acute) Prediabetes (Acute) Stroke (Acute) Tinea pedis (Acute) Surgical History History of bilateral knee replacement (Acute) Social History Smoking Status: Former smoker Smoking Status: Former smoker alcohol intake frequency: holidays/special occasions only Substance Use Type: does not use Exam Initial Vital Signs Initial Vital Signs: Vital Signs Temperature 99.3 F 06/26/20 09:08 Pulse Rate 115 H 06/26/20 09:08 Respiratory Rate 27 H 06/26/20 09:08 Blood Pressure 136/86 06/26/20 09:08 Pulse Oximetry 98 06/26/20 09:08 GENERAL: overweight alert female in moderate respiratory distress, diaphoretic HEENT: Head atraumatic,EOMI, pupils reactive, face symmetric, moist mucous membranes CARDIOVASCULAR: Regular rate and rhythm without murmurs, rubs or gallops. RESPIRATORY: tight chest with wheezing bilaterally she does speak in about 5 word sentences ABDOMEN: Soft, nontender. Normoactive bowel sounds all 4 quadrants. No guarding or rebound. EXTREMITIES: Normal range of motion, no clubbing or edema. Neurovascularly intact NEUROLOGICAL: Alert and oriented x4.Normal gait and speech. Cranial nerves II through XII grossly intact. SKIN: Warm, dry, no laceration, no petechiae, no rashes or lesions. Course Orders Ordered: ED Orders 06/26/20 09:15 C-Reactive Protein Quant Stat Complete Blood Count AUTO DIFF Stat Comprehensive Metabolic Panel Stat D Dimer Stat Ferritin Stat Lactate (Lactic Acid) Stat Lactate Dehydrogenase Stat NT-proBNP (BNP-Adult 18+) Stat Procalcitonin Stat Troponin & CK Cardiac Panel Stat 06/26/20 09:20 Blood Culture Stat RT Consult Eval and Treat Now 06/26/20 09:25 XR chest 1V Stat Respiratory Panel (Film Array) Stat Albuterol (Ventolin Hfa (Vent/Covid R/O)) 4 puff INH RTQ4HR PRN PRN Reason: Shortness Of Breath Last Admin: 06/26/20 10:16 Dose: 4 puff Documented by: Admin: 06/26/20 09:31 Dose: 4 puff Documented by: LAURA Sodium Chloride (Normal Saline 0.9%) 1,000 mls @ 125 mls/hr IV CONT DANIEL Last Admin: 06/26/20 11:51 Dose: 125 mls/hr Documented by: DALJIT Discontinued Medications Hydrocodone Bitart/Acetaminophen ([place] 5/325) 1 tab PO NOW ONE Stop: 06/26/20 11:35 Last Admin: 06/26/20 11:40 Dose: 1 tab Documented by: DALJIT Albuterol (Ventolin) 2.5 mg INH NOW ONE Stop: 06/26/20 11:46 Last Admin: 06/26/20 11:59 Dose: 2.5 mg Documented by: LULA Albuterol/Ipratropium (Duoneb) 3 ml INH NOW ONE Stop: 06/26/20 10:52 Last Admin: 06/26/20 10:57 Dose: 3 ml Documented by: LAURA Ceftriaxone Sodium/Dextrose (Rocephin) 2 gm in 50 mls @ 100 mls/hr IV NOW ONE Stop: 06/26/20 12:11 Last Infusion: 06/26/20 12:31 Dose: 0 mls/hr Documented by: Admin: 06/26/20 11:51 Dose: 100 mls/hr Documented by: DALJIT Azithromycin 500 mg/ Dextrose 250 mls @ 250 mls/hr IV NOW ONE Stop: 06/26/20 11:43 Last Admin: 06/26/20 12:31 Dose: 250 mls/hr Documented by: DALJIT Methylprednisolone (Solu-Medrol 125 Mg Vial) 125 mg IV NOW ONE Stop: 06/26/20 11:46 Last Admin: 06/26/20 11:51 Dose: 125 mg Documented by: DALJIT Vital Signs Vital signs: Vital Signs - 8 hr 06/26/20 09:08 06/26/20 09:11 06/26/20 09:30 Temperature 99.3 F Pulse Rate 115 H 113 H 109 H Respiratory Rate 27 H 33 H 28 H Blood Pressure 136/86 141/82 H Pulse Oximetry 98 99 97 06/26/20 09:55 06/26/20 10:00 06/26/20 10:30 Temperature Pulse Rate 102 H 100 H 101 H Respiratory Rate 28 H 22 22 Blood Pressure 153/108 H 145/83 H Pulse Oximetry 96 95 06/26/20 11:00 06/26/20 11:06 06/26/20 11:30 Temperature Pulse Rate 95 H 97 H 90 Respiratory Rate 25 H 24 26 H Blood Pressure 145/103 H 122/69 Pulse Oximetry 99 97 94 06/26/20 12:00 06/26/20 12:03 Temperature Pulse Rate 94 H 98 H Respiratory Rate 25 H 28 H Blood Pressure 114/83 Pulse Oximetry 96 MDM - SOB/Dyspnea Lab Data Attestation: I reviewed the patient's lab results. Result diagrams: 06/26/20 09:15 06/26/20 09:15 Labs: Lab Results 06/26/20 06/26/20 06/26/20 Range/Units 09:15 09:15 09:15 WBC (4.5-11.0) X10^3/uL RBC (4.0-5.2) X10^6/uL Hgb (12.0-16.0) g/dL Hct (36-46) % MCV (80-100) fL MCH (26-34) PG MCHC (30-36) % RDW (11.6-14.8) % Plt Count (150-400) X10^3/uL Neut % (Auto) (50-75) % Lymph % (Auto) (25-40) % [place] % (Auto) (3-14) % Eos % (Auto) (2-4) % Baso % (Auto) (0-2) % Neut # (Auto) (3889-7039) /uL Lymph # (Auto) (9471-1366) /uL [place] # (Auto) (0-900) /uL Eos # (Auto) (0-450) /uL Baso # (Auto) (0-100) /uL D-Dimer 413 H (<230) ng/mL Sodium 137 (137-145) mmol/L Potassium 4.0 (3.4-5.1) mmol/L Chloride 100 (98-107) mmol/L Carbon Dioxide 30 (22-32) mmol/L BUN 8 (7-17) mg/dL Creatinine 0.59 (0.52-1.04) mg/dL Estimated GFR > 60.0 (>60) mL/min BUN/Creatinine Ratio 13.6 (6-22) Glucose 134 H (70-100) mg/dL Lactate (0.7-2.1) mmol/L Calcium 9.2 (8.4-10.2) mg/dL Ferritin (11-264) ng/mL Total Bilirubin 0.8 (0.2-1.3) mg/dL AST 28 (14-36) IU/L ALT 18 (<35) IU/L Alkaline Phosphatase 130 H (38-126) U/L Lactate Dehydrogenase (313-618) U/L Total Creatine Kinase (30-135) U/L CK-MB (CK-2) CK-MB (CK-2) Rel Index Troponin I (0.01-0.034) ng/mL C-Reactive Protein (<1.0) mg/dL NT-Pro-B Natriuret Pep (<125) pg/mL Total Protein 7.6 (6.3-8.2) g/dL Albumin 4.3 (3.5-5.0) g/dL Globulin 3.3 (1.7-4.1) g/dL Albumin/Globulin Ratio 1.3 (1.0-2.8) Procalcitonin 0.20 (<0.5) ng/mL COVID-19 PCR 06/26/20 06/26/20 06/26/20 Range/Units 09:15 09:15 09:15 WBC 10.9 (4.5-11.0) X10^3/uL RBC 4.16 (4.0-5.2) X10^6/uL Hgb 12.2 (12.0-16.0) g/dL Hct 36.7 (36-46) % MCV 88.2 (80-100) fL MCH 29.3 (26-34) PG MCHC 33.2 (30-36) % RDW 13.4 (11.6-14.8) % Plt Count 311 (150-400) X10^3/uL Neut % (Auto) 78.9 H (50-75) % Lymph % (Auto) 11.3 L (25-40) % [place] % (Auto) 8.1 (3-14) % Eos % (Auto) 0.6 L (2-4) % Baso % (Auto) 1.1 (0-2) % Neut # (Auto) 8600 H (4129-7863) /uL Lymph # (Auto) 1200 (0913-8197) /uL [place] # (Auto) 900 (0-900) /uL Eos # (Auto) 100 (0-450) /uL Baso # (Auto) 100 (0-100) /uL D-Dimer (<230) ng/mL Sodium (137-145) mmol/L Potassium (3.4-5.1) mmol/L Chloride (98-107) mmol/L Carbon Dioxide (22-32) mmol/L BUN (7-17) mg/dL Creatinine (0.52-1.04) mg/dL Estimated GFR (>60) mL/min BUN/Creatinine Ratio (6-22) Glucose (70-100) mg/dL Lactate 1.2 (0.7-2.1) mmol/L Calcium (8.4-10.2) mg/dL Ferritin 34 (11-264) ng/mL Total Bilirubin (0.2-1.3) mg/dL AST (14-36) IU/L ALT (<35) IU/L Alkaline Phosphatase (38-126) U/L Lactate Dehydrogenase 527 (313-618) U/L Total Creatine Kinase 48 (30-135) U/L CK-MB (CK-2) TNP CK-MB (CK-2) Rel Index TNP Troponin I < 0.012 (0.01-0.034) ng/mL C-Reactive Protein 8.2 H (<1.0) mg/dL NT-Pro-B Natriuret Pep 265 H (<125) pg/mL Total Protein (6.3-8.2) g/dL Albumin (3.5-5.0) g/dL Globulin (1.7-4.1) g/dL Albumin/Globulin Ratio (1.0-2.8) Procalcitonin (<0.5) ng/mL COVID-19 PCR 06/26/20 06/26/20 Range/Units 09:15 09:25 WBC (4.5-11.0) X10^3/uL RBC (4.0-5.2) X10^6/uL Hgb (12.0-16.0) g/dL Hct (36-46) % MCV (80-100) fL MCH (26-34) PG MCHC (30-36) % RDW (11.6-14.8) % Plt Count (150-400) X10^3/uL Neut % (Auto) (50-75) % Lymph % (Auto) (25-40) % [place] % (Auto) (3-14) % Eos % (Auto) (2-4) % Baso % (Auto) (0-2) % Neut # (Auto) (8300-9083) /uL Lymph # (Auto) (7151-9667) /uL [place] # (Auto) (0-900) /uL Eos # (Auto) (0-450) /uL Baso # (Auto) (0-100) /uL D-Dimer (<230) ng/mL Sodium (137-145) mmol/L Potassium (3.4-5.1) mmol/L Chloride (98-107) mmol/L Carbon Dioxide (22-32) mmol/L BUN (7-17) mg/dL Creatinine (0.52-1.04) mg/dL Estimated GFR (>60) mL/min BUN/Creatinine Ratio (6-22) Glucose (70-100) mg/dL Lactate (0.7-2.1) mmol/L Calcium (8.4-10.2) mg/dL Ferritin (11-264) ng/mL Total Bilirubin (0.2-1.3) mg/dL AST (14-36) IU/L ALT (<35) IU/L Alkaline Phosphatase (38-126) U/L Lactate Dehydrogenase (313-618) U/L Total Creatine Kinase (30-135) U/L CK-MB (CK-2) CK-MB (CK-2) Rel Index Troponin I (0.01-0.034) ng/mL C-Reactive Protein (<1.0) mg/dL NT-Pro-B Natriuret Pep (<125) pg/mL Total Protein (6.3-8.2) g/dL Albumin (3.5-5.0) g/dL Globulin (1.7-4.1) g/dL Albumin/Globulin Ratio (1.0-2.8) Procalcitonin (<0.5) ng/mL COVID-19 PCR Cancelled Negative ECG Data Attestation: I personally reviewed and interpreted this ECG as follows: Prior ECG tracings: available for review Interpretation: Normal sinus rhythm rate 111 p.r. interval 132 QRS [address] changes is similar to previous EKG in January 2020 MDM Narrative Medical decision making narrative: The patient initially had albuterol inhaler with spacer she had mild improvement she has audible wheezing and does still appear to be dyspneic. BNP is low at 265 unlikely to be CHF she has no pulmonary congestion on her x-ray and no peripheral edema. He does have mildly elevated procalcitonin. Her COVID-19 test is negative she is given a DuoNeb and albuterol nebulizers of she does seem to have more improvement. This time I recommend she stay in the hospital for IV fluids and frequent nebulizers. D-dimer also minimally elevated could falsely be elevated due to obesity, at this time patient has signs and symptoms consistent with COPD more likely to be COPD rather than PE. Dr. salinas in the ED to see and evaluate patient agrees with observation at this time Discharge Plan Departure Patient Disposition: Admitted as Observation Clinical Impression: Acute exacerbation of chronic obstructive airways disease Discharge Date/Time: 06/26/20 13:05 Referrals: Leo Landa MD [Primary Care Provider] - Admit Date/Time: 06/26/20 12:28 Admit Provider: Bipin Salinas
[2020-06-26 10:22] LABS: Ferritin 34 ng/mL (11-264)
[2020-06-26 10:29] LABS: COVID19 -Nasal RAPID Negative (Negative)
[2020-06-26] MEDS: ALBUTEROL/IPRATROPIUM 3 ML AMPUL INH ×2 (10:57→19:08)
[2020-06-26] MEDS: HYDROCODONE/ACET 5/325 TABLET 1 TAB PO ×3 (11:40→20:38)
[2020-06-26] MEDS: CEFTRIAXONE 2 GM/50 ML FROZ.PIGGY IV (11:51)
[2020-06-26] MEDS: methylPREDNISolone 125 MG/2 ML VIAL IV (11:51)
[2020-06-26] MEDS: SODIUM CHLORIDE 0.9% 1,000 ML 125 ML IV (11:51)
[2020-06-26] MEDS: ALBUTEROL 2.5 MG/3 ML NEB (ADULT) INH ×2 (11:59→15:20)
[2020-06-26] MEDS: AZITHROMYCIN 500 MG in DEXTROSE 5% IN WATER 250 ML IV (12:31)
--- NOTE | 2020-06-26 13:02 | PC.NURSE ---
Day shift: Pt on AC unit from ED at approx 1300. 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 Oriented to room and call light. Agrees to not get OOB w/o help from staff. Pivot transfer to bed. Pt c/o rt hip pain 07/09. She stated its bone on bone. Audible wheezes throughout all lung neri. 98% RA. Bed alarm on. Pt high fall risk. She is calm and cooperative.
--- NOTE | 2020-06-26 13:22 | P.HP_ITS ---
History of Present Illness History of Present Illness Date Patient Seen: 06/26/20 Time Patient Seen: 13:22 Chief complaint: SOB Narrative: Cira Stafford is a 59 year old female with PMH of CAD, prior MS, prior CVA with mild residual R sided weakness, CHF (unknown type), COPD, right hip osteoarthritis, and pre diabetes, resident of [facility] who lives in a private apartment with no assistance, who presented with worsening shortness of breath over the past two days. Associated with mildly productive cough with light green sputum, mild subjective fever and measured fever to 100.7 yesterday at the care facility. She continued to have worsening shortness of breath and was transferred to the ER here for further evaluation. She denies any recent dyspnea on exertion, however this is limited by her right hip pain. She denies any chest pain, palpitations, orthopnea, lower extremity edema, abdominal pain, nausea, vomiting. She denies any constipation or diarrhea. She denies any rash. In the emergency room, patient was tachypneic and mildly tachycardic. She was however, saturating well on room air and was afebrile. Initial CBC was unremarkable, chemistries were also unremarkable with age adjusted D-dimer negative at 413. ProBNP was indeterminate 265. Troponin was negative. Procalcitonin was negative at 0.2. COVID-19 testing was negative as was complete respiratory panel. Chest x-ray did not show any focal infiltrates. Patient was admitted under observation status for COPD exacerbation and possible community-acquired pneumonia. Patient History Medical History (Updated 06/26/20 @ 12:27 by Mariaa Pierre DO) Anxiety (Acute) COPD (chronic obstructive pulmonary disease) (Acute) Coronary artery disease (Acute) Other chronic pain (Acute) Pain in right hip (Acute) Prediabetes (Acute) Stroke (Acute) Tinea pedis (Acute) Surgical History History of bilateral knee replacement (Acute) Family & Social History Safety & Behavioral: Feels Safe in Current Yes Environment Been Physically Hurt or No Threatened By a Person Tobacco & Substance use: Smoking Status Former smoker alcohol intake frequency holiday/special occasion Substance Use Type does not use Meds Home Medications and Allergies Home Medications Medication Instructions Recorded Confirmed Type albuterol sulfate 2 puff INHALATION Q4H PRN 04/29/18 06/26/20 History clotrimazole 1 applic TOPICAL Q12H PRN 04/29/18 06/26/20 History acetaminophen [Acetaminophen Extra 500 mg PO Q4HR 12/07/19 06/26/20 History Strength] albuterol sulfate 2.5 mg INHALATION Q4H PRN 12/07/19 06/26/20 History carvedilol 12.5 mg PO BID 12/07/19 06/26/20 History cetirizine [Zyrtec] 10 mg PO DAILY 06/26/20 06/26/20 History cyclobenzaprine 5 mg PO TID PRN 06/26/20 06/26/20 History diphenhydramine HCl 25 mg PO Q6H PRN 06/26/20 06/26/20 History fluticasone furoate [Flonase 2 spray INTRANASAL BID 06/26/20 06/26/20 History Sensimist] fluticasone propion-salmeterol 1 inh INHALATION BID 06/26/20 06/26/20 History [Advair Diskus] hydrochlorothiazide 6.25 mg PO QAM 06/26/20 06/26/20 History hydrocodone-acetaminophen [[place]] 1 tab PO Q12HR PRN 06/26/20 06/26/20 History hydroxyzine HCl 25 mg PO TID PRN 06/26/20 06/26/20 History hydroxyzine HCl 50 mg PO TID 06/26/20 06/26/20 History ipratropium bromide 2 puff INHALATION QID 06/26/20 06/26/20 History losartan 100 mg PO QAM 06/26/20 06/26/20 History melatonin 3 mg PO BEDTIME 06/26/20 06/26/20 History metformin 500 mg PO QAM 06/26/20 06/26/20 History omeprazole 20 mg PO QAM 06/26/20 06/26/20 History pregabalin 25 mg PO TID 06/26/20 06/26/20 History sertraline 50 mg PO QAM 06/26/20 06/26/20 History trazodone 25 mg PO BEDTIME PRN 06/26/20 06/26/20 History Allergies Allergy/AdvReac Type Severity Reaction Status Date / Time aspirin [ASPIRIN] Allergy Unknown Verified 06/26/20 09:12 buprenorphine [From Suboxone] Allergy Unknown Verified 06/26/20 12:15 ibuprofen [IBUPROFEN] Allergy Unknown Verified 06/26/20 09:12 ketorolac [From TORADOL] Allergy Unknown Verified 06/26/20 09:12 methadone Allergy Unknown Verified 06/26/20 12:15 naloxone [From Suboxone] Allergy Unknown Verified 06/26/20 12:15 NSAIDS (Non-Steroidal Allergy Unknown Verified 06/26/20 12:15 Anti-Inflamma tramadol [TRAMADOL] Allergy Unknown Verified 06/26/20 09:12 Review of Systems Review of Systems Narrative: All other systems reviewed with the patient and are negative unless otherwise stated. Exam Vital Signs (past 8 hours): - 06/26/20 09:08 06/26/20 09:11 06/26/20 09:30 Temperature 99.3 F Pulse Rate 115 H 113 H 109 H Respiratory Rate 27 H 33 H 28 H Blood Pressure 136/86 141/82 H Pulse Oximetry 98 99 97 06/26/20 09:55 06/26/20 10:00 06/26/20 10:30 Temperature Pulse Rate 102 H 100 H 101 H Respiratory Rate 28 H 22 22 Blood Pressure 153/108 H 145/83 H Pulse Oximetry 96 95 06/26/20 11:00 06/26/20 11:06 06/26/20 11:30 Temperature Pulse Rate 95 H 97 H 90 Respiratory Rate 25 H 24 26 H Blood Pressure 145/103 H 122/69 Pulse Oximetry 99 97 94 06/26/20 12:00 06/26/20 12:03 06/26/20 12:30 Temperature Pulse Rate 94 H 98 H 97 H Respiratory Rate 25 H 28 H 24 Blood Pressure 114/83 123/81 Pulse Oximetry 96 95 06/26/20 13:20 Temperature 96.8 F L Pulse Rate 93 H Respiratory Rate 25 H Blood Pressure 124/67 Pulse Oximetry 95 Oxygen Delivery Method Room Air Narrative Exam Narrative: GENERAL APPEARANCE: Well developed, well nourished, obese in no acute distress. SKIN: Inspection of the skin reveals no rashes, ulcerations or petechiae. HEENT: Normocephalic atraumatic, extraocular muscles are intact, oropharynx is clear and mucous membranes are moist, neck is supple without adenopathy. NECK: Supple and symmetric. There was no thyroid enlargement, and no tenderness, or masses were felt. No JVD. CHEST: Normal AP diameter and normal contour without any kyphoscoliosis. LUNGS: Auscultation of the lungs revealed coarse rhonchi bilaterally with mild expiratory wheezing. She is mildly tachypnic but not in respiratory distress. CARDIOVASCULAR: There was a regular rate and rhythm without any murmurs, gallops, rubs. Peripheral pulses were 2+ and symmetric. ABDOMEN: Soft and nontender with normal bowel sounds. No ascites was noted. MUSCULOSKELETAL: There was no tenderness or effusions noted. Muscle strength and tone were normal. EXTREMITIES: No cyanosis, clubbing or edema. NEUROLOGIC: Alert and oriented x 3. Normal affect. Gait was normal. Strength is +5/5 in the Upper Extremities and Lower Extremities Bilaterally with right-sided very mildly weaker than the left Sensation to touch was normal. Objective Labs Result Diagrams: 06/26/20 09:15 06/26/20 09:15 Labs: Laboratory Results - last 24 hr 06/26/20 06/26/20 06/26/20 09:15 09:15 09:15 WBC RBC Hgb Hct MCV MCH MCHC RDW Plt Count Neut % (Auto) Lymph % (Auto) [place] % (Auto) Eos % (Auto) Baso % (Auto) Neut # (Auto) Lymph # (Auto) [place] # (Auto) Eos # (Auto) Baso # (Auto) D-Dimer 413 H Sodium 137 Potassium 4.0 Chloride 100 Carbon Dioxide 30 BUN 8 Creatinine 0.59 Estimated GFR > 60.0 BUN/Creatinine Ratio 13.6 Glucose 134 H Lactate Calcium 9.2 Ferritin Total Bilirubin 0.8 AST 28 ALT 18 Alkaline Phosphatase 130 H Lactate Dehydrogenase Total Creatine Kinase CK-MB (CK-2) CK-MB (CK-2) Rel Index Troponin I C-Reactive Protein NT-Pro-B Natriuret Pep Total Protein 7.6 Albumin 4.3 Globulin 3.3 Albumin/Globulin Ratio 1.3 Procalcitonin 0.20 COVID-19 PCR 06/26/20 06/26/20 06/26/20 09:15 09:15 09:15 WBC 10.9 RBC 4.16 Hgb 12.2 Hct 36.7 MCV 88.2 MCH 29.3 MCHC 33.2 RDW 13.4 Plt Count 311 Neut % (Auto) 78.9 H Lymph % (Auto) 11.3 L [place] % (Auto) 8.1 Eos % (Auto) 0.6 L Baso % (Auto) 1.1 Neut # (Auto) 8600 H Lymph # (Auto) 1200 [place] # (Auto) 900 Eos # (Auto) 100 Baso # (Auto) 100 D-Dimer Sodium Potassium Chloride Carbon Dioxide BUN Creatinine Estimated GFR BUN/Creatinine Ratio Glucose Lactate 1.2 Calcium Ferritin 34 Total Bilirubin AST ALT Alkaline Phosphatase Lactate Dehydrogenase 527 Total Creatine Kinase 48 CK-MB (CK-2) TNP CK-MB (CK-2) Rel Index TNP Troponin I < 0.012 C-Reactive Protein 8.2 H NT-Pro-B Natriuret Pep 265 H Total Protein Albumin Globulin Albumin/Globulin Ratio Procalcitonin COVID-19 PCR 06/26/20 06/26/20 09:15 09:25 WBC RBC Hgb Hct MCV MCH MCHC RDW Plt Count Neut % (Auto) Lymph % (Auto) [place] % (Auto) Eos % (Auto) Baso % (Auto) Neut # (Auto) Lymph # (Auto) [place] # (Auto) Eos # (Auto) Baso # (Auto) D-Dimer Sodium Potassium Chloride Carbon Dioxide BUN Creatinine Estimated GFR BUN/Creatinine Ratio Glucose Lactate Calcium Ferritin Total Bilirubin AST ALT Alkaline Phosphatase Lactate Dehydrogenase Total Creatine Kinase CK-MB (CK-2) CK-MB (CK-2) Rel Index Troponin I C-Reactive Protein NT-Pro-B Natriuret Pep Total Protein Albumin Globulin Albumin/Globulin Ratio Procalcitonin COVID-19 PCR Cancelled Negative Assessment & Plan Assessment & Plan narrative: Cira Stafford is a 59 year old female with PMH of CAD, prior MS, prior CVA with mild residual R sided weakness, CHF (unknown type), COPD, right hip osteoarthritis, and pre diabetes, resident of [facility] who lives in a private apartment with no assistance, who presented with worsening shortness of breath over the past two days. She is admitted under observation status at this time for COPD exacerbation with possible community-acquired pneumonia. 1. COPD exacerbation - RT eval and treat - Pulmicort BID, duonebs BID, and prn Albuterol. - continue prednisone 40 mg x4 days. Given solumedrol 125 mg in the ER. -COVID-19 testing and full respiratory panel was negative. Her chest x-ray was clear but history is consistent with community-acquired pneumonia. Will treat with antibiotics and prednisone at this time. Her tachypnea does not appear to be related to volume overload as she appears euvolemic on exam. 2. Community-acquired pneumonia, acute, present on admission -patient reports measured fever of 100.7, with productive cough and sputum production. Respiratory panel in COVID-19 testing were negative. Patient had a negative chest x-ray without infiltrates, but will treat clinically for community-acquired pneumonia with ceftriaxone and azithromycin. 3. Coronary artery disease, chronic, present on admission -continue home Plavix and Lipitor 4. Prior CVA -continue home Plavix 75 mg daily, continue home Lipitor 40 mg daily 5. Chronic heart failure of unknown type, present on admission - continue home losartan 100 mg, coreg 6.25 mg BID, and HCTZ 6.25 mg. -patient appears euvolemic at this time and there is no current indication for echocardiogram. There is no available echocardiogram for review. 6. Right hip osteoarthritis, chronic -continue home pain medications including hydrocodone, and cyclobenzaprine -PT evaluation 7. Prediabetes -hold home metformin -continue fingersticks a.c. HS with low-dose sliding scale as needed Diet: HH/carb consistent diet. Code: Full as discussed with the patient, surrogate decision maker is the patient's daughter. DVT: Lovenox daily Dispo: Admitted under observation status as her stay is not expected to exceed 2 midnights.
[2020-06-26 13:54] LABS: Adenovirus Not Detected (Not Detect); Bordetella pertussis Not Detected (Not Detect); Chlamydophila pneumoniae Not Detected (Not Detect); Coronavirus 229E Not Detected (Not Detect); Coronavirus HKU1 Not Detected (Not Detect); Coronavirus NL 63 Not Detected (Not Detect); Coronavirus OC43 Not Detected (Not Detect); Human Metapneumovirus Not Detected (Not Detect); Human Rhinovirus/Enterovirus Not Detected (Not Detect); Influenza A Not Detected (Not Detect); Influenza B Not Detected (Not Detect); Mycoplasma pneumoniae Not Detected (Not Detect); Parainfluenza Virus 1 Not Detected (Not Detect); Parainfluenza Virus 2 Not Detected (Not Detect); Parainfluenza Virus 3 Not Detected (Not Detect); Parainfluenza Virus 4 Not Detected (Not Detect); Respiratory Syncytial Virus Not Detected (Not Detect)
--- NOTE | 2020-06-26 13:56 | PC.NURSE ---
Day shift: Stop Bang assessment started. Pt stated that she has had a sleep study and CPAP was not indicated. Cancelled from worklist. Will pass along to next shift to monitor when Pt sleeping.
[2020-06-26] MEDS: PREGABALIN 25 MG CAPSULE PO ×2 (14:50→20:38)
[2020-06-26] MEDS: INSULIN ASPART 100 UNIT/ML INSULN PEN SUBCUT ×2 (16:19→20:38)
[2020-06-26] MEDS: BUDESONIDE 0.5 MG/2 ML NEB INH (19:08)
[2020-06-26] MEDS: carvediloL 12.5 MG TABLET PO (20:38)
[2020-06-26] MEDS: MELATONIN 3 MG TABLET PO (20:38)
[2020-06-26] MEDS: ATORVASTATIN 20 MG TABLET 40 MG PO (20:38)
[2020-06-27] VITALS (17 sets, daily range): BP systolic 122–147; BP diastolic 52–96; PULSE 77–97; RESP 16–26; TEMP 35.9–37.1; O2SAT 93–100
[2020-06-27] MEDS: HYDROCODONE/ACET 5/325 TABLET 1 TAB PO ×2 (01:18→06:39)
[2020-06-27] MEDS: CYCLOBENZAPRINE 5 MG TABLET PO ×2 (01:27→08:54)
[2020-06-27] MEDS: TRAZODONE 50 MG TABLET 25 MG PO (02:40)
--- NOTE | 2020-06-27 03:45 | PC.NURSE ---
Lab report gram negative bacilli in one aerobic bottle from blood culture. ID pending. PRIMO Montes notified - no additional orders, suspects contamination.
[2020-06-27 04:24] LABS: Acinetobacter baumannii Not Detected (Not Detect); Enterococcus species Not Detected (Not Detect); Listeria monocytogenes Not Detected (Not Detect); Staphylococcus species Not Detected (Not Detect); Streptococcus agalactiae (Gr B Not Detected (Not Detect); Streptococcus pneumonia Not Detected (Not Detect); Streptococcus pyogenes (Gr A) Not Detected (Not Detect); Streptococcus species Not Detected (Not Detect)
[2020-06-27 04:25] LABS: Candida albicans Not Detected (Not Detect); Candida glabrata Not Detected (Not Detect); Candida krusei Not Detected (Not Detect); Candida parapsilosis Not Detected (Not Detect); Candida tropicalis Not Detected (Not Detect); E. coli Detected (Not Detect); Enterobacter cloacae complex Not Detected (Not Detect); Enterobacteriaceae species Detected (Not Detect); Haemophilus influenzae Not Detected (Not Detect); KPC (carbapenem-resist gene) Not Detected (Not Detect); Neisseria meningitidis Not Detected (Not Detect); Proteus species Not Detected (Not Detect); Pseudomonas aeruginosa Not Detected (Not Detect); Serratia marcescens Not Detected (Not Detect)
[2020-06-27 05:49] LABS: Add Manual Diff / Slide Review NO; Basophils Absolute Auto 0 /uL (0-100); Basophils Percent Auto 0.5 % (0-2); Eosinophils Absolute Auto 0 /uL (0-450); Hemoglobin 11.6 g/dL (12.0-16.0); Lymphocytes Absolute Auto 1000 /uL (1100-4500); Lymphocytes Percent Auto 10.8 % (25-40); Mean Corpuscular Volume 87.9 fL (80-100); Monocytes Absolute Auto 600 /uL (0-900); Monocytes Percent Auto 6.6 % (3-14); Neutrophils Absolute Auto 7900 /uL (1500-7000); Neutrophils Percent Auto 82.1 % (50-75); Platelet Count 282 X10^3/uL (150-400); Red Blood Cell Count 3.98 X10^6/uL (4.0-5.2); Red Cell Distribution Width 13.2 % (11.6-14.8); White Blood Cell Count 9.6 X10^3/uL (4.5-11.0)
[2020-06-27 05:58] LABS: Alanine Aminotransferase 22 IU/L (<35); Albumin 3.9 g/dL (3.5-5.0); Albumin Globulin Ratio 1.3 (1.0-2.8); Alkaline Phosphatase 108 U/L (38-126); Aspartate Aminotransferase 29 IU/L (14-36); BUN Creatinine Ratio 25.9 (6-22); Bilirubin Total 0.5 mg/dL (0.2-1.3); Bilirubin Unconjugated 0.3 mg/dL (0.0-1.1); Blood Urea Nitrogen 15 mg/dL (7-17); Calcium 9.3 mg/dL (8.4-10.2); Carbon Dioxide 31 mmol/L (22-32); Chloride 101 mmol/L (98-107); Estimated Glomerular Filt Rate > 60.0 mL/min (>60); Globulin 3.1 g/dL (1.7-4.1); Glucose 203 mg/dL (70-100); HEMOLYSIS < 15 (0-50); Magnesium 2.3 mg/dL (1.6-2.3); Potassium 4.2 mmol/L (3.4-5.1); Sodium 137 mmol/L (137-145)
[2020-06-27] MEDS: PANTOPRAZOLE 20 MG TABLET PO (07:03)
[2020-06-27] MEDS: ALBUTEROL/IPRATROPIUM 3 ML AMPUL INH ×4 (08:03→21:05)
[2020-06-27] MEDS: BUDESONIDE 0.5 MG/2 ML NEB INH ×2 (08:09→21:05)
--- NOTE | 2020-06-27 08:13 | DI.ECHO.S_ITS ---
[facility] +---------+ [facility] +---------+ : : [address] : : : : [id number] : : : : Phone: [phone]+ Echocardiogram Report + + :Name: LANG BLAIR Study Date: 06/27/2020 Height: 61 in : :[facility] Weight: 216 lb : : Gender: Female BSA: 2.0 m2 : :: 1960 Age: 59 yrs BP: 122/80 mmHg: :Reason For Study: SHORTNESS OF BREATH : :Ordering Physician: HOSPITALIST, : :RYAN Performed By: Roro Ramos : :Referring: LUCERO KULKARNI : + + Interpretation Summary The left ventricular ejection fraction is normal. There are no focal wall motion abnormalities. Diastolic parameters suggest a relaxation abnormality of the left ventricle, consistent with probable normal filling pressures. The right ventricle is normal in size and function. Pulmonary artery pressures cannot be estimated because of the lack of a measurable TR jet velocity. No hemodynamically significant valvular abnormalities. The etiology of patient's dyspnea could not be determined based on this echocardiogram. IVC was not visualized due to poor subcostal views. Overall this echocardiogram is similar from 2017. Procedure: A two-dimensional transthoracic echocardiogram with color flow and Doppler was performed. The study quality was technically difficult. Comparison is made with the echocardiogram of 11/02/2017. The subcostal views were difficult to obtain and are suboptimal in quality. The heart rate ranged between 77-84 bpm during the study. Left Ventricle: The left ventricle is normal in size and wall thickness. The ejection fraction is estimated to be 60-65%. The left ventricular ejection fraction is normal. There are no focal wall motion abnormalities. Diastolic parameters suggest a relaxation abnormality of the left ventricle, consistent with probable normal filling pressures. Right Ventricle: The right ventricle is normal in size and function. Atria: The left atrial size is normal. Right atrial size is normal. There is no Doppler evidence for an interatrial shunt. Mitral Valve: The mitral valve is normal in structure and function. There is trace mitral regurgitation. Aortic Valve: The aortic valve is trileaflet. The aortic valve opens well. There is no aortic valve stenosis. No aortic regurgitation is present. Tricuspid Valve: The tricuspid valve is normal in structure and function. There is a trace or physiologic amount of tricuspid regurgitation. Pulmonary artery pressures cannot be estimated because of the lack of a measurable TR jet velocity. Pulmonic Valve: The pulmonic valve leaflets are thin and pliable; valve motion is normal. There is no pulmonic valvular regurgitation. Great Vessels: The aortic root is normal size. The dimensions of the ascending aorta are normal. The inferior vena cava was not well visualized. Pericardium/ Pleura There is no pericardial effusion. There is no pleural effusion. MMode/2D Measurements & Calculations LVIDd: 4.6 cm LVOT diam: 1.8 cm LVIDs: 3.0 cm Ao root diam: 2.6 cm FS: 34.1 % asc Aorta Diam: 3.0 cm EPSS: 0.90 cm Ao Arch Diam (Prox Trans): 2.5 cm IVSd: 1.0 cm LVPWd: 0.81 cm LV echevarria. diameter/BSA (cm/m^2): 2.4 LV sys. diameter/BSA (cm/m^2): 1.6 LA A2 area: 19.8 cm2 RA long axis: 4.7 cm LA A4 area: 21.0 cm2 RA area: 15.0 cm2 LA length (vol): 5.8 cm RA vol: 40.7 ml LA vol: 60.5 ml RA : 20.9 ml/m2 LA vol index: 31.0 ml/m2 RVD1 (basal): 3.1 cm TAPSE: 2.0 cm Doppler Measurements & Calculations Ao V2 max: 134.2 cm/sec LVOT Max Esequiel: 92.0 cm/sec Ao V2 mean: 89.8 cm/sec LV V1 max P.4 mmHg Ao max P.2 mmHg LV V1 VTI: 21.3 cm Ao mean P.7 mmHg MIGUEL ANGEL(I,D): 1.8 cm2 Ao V2 VTI: 30.1 cm MIGUEL ANGEL(V,D): 1.8 cm2 sev ratio: 0.71 MIGUEL ANGEL indexed to BSA (cm^2/m^2): 0.93 MV E max esequiel: 89.1 cm/sec PA V2 max: 118.8 cm/sec MV A max esequiel: 101.9 cm/sec PA V2 mean: 85.0 cm/sec MV E/A: 0.87 PA mean P.2 mmHg Med Peak E' Esequiel: 7.0 cm/sec PA pr(Accel): 3.6 mmHg E/E' med: 12.8 Lat Peak E' Esequiel: 10.8 cm/sec E/E' lat: 8.3 E/e' average: 10.5 MV dec time: 0.18 sec SVLVOT): 54.7 ml Electronically signed by: Hai Michelle M.D. on Early Physician:06/27/2020 02:49 PM
[2020-06-27] MEDS: PREGABALIN 25 MG CAPSULE PO ×3 (08:24→20:31)
[2020-06-27] MEDS: predniSONE 20 MG TABLET 40 MG PO (08:24)
[2020-06-27] MEDS: CLOPIDOGREL 75 MG TABLET PO (08:25)
[2020-06-27] MEDS: carvediloL 12.5 MG TABLET PO ×2 (08:25→20:31)
[2020-06-27] MEDS: SERTRALINE 50 MG TABLET PO (08:25)
[2020-06-27] MEDS: ENOXAPARIN 40 MG/0.4 ML SYRINGE SUBCUT (08:25)
[2020-06-27] MEDS: LOSARTAN 50 MG TABLET 100 MG PO (08:25)
[2020-06-27] MEDS: hydroCHLOROthiazide 25 MG TABLET 6.25 MG PO (08:32)
[2020-06-27] MEDS: INSULIN ASPART 100 UNIT/ML INSULN PEN SUBCUT ×3 (08:33→16:48)
--- NOTE | 2020-06-27 09:42 | PC.NURSE ---
Day Shift- Spoke with Dr. Salinas at 0940 via phone. Pt states right hip bone on bone pain is not decreasing with [address] [place] [address] Salinas verbal order to increase to 1-2 tabs [place] po PRN.
[2020-06-27] MEDS: HYDROCODONE/ACET 5/325 TABLET 2 TAB PO ×3 (10:32→20:30)
--- NOTE | 2020-06-27 10:50 | PT.IIE ---
Surgical History (Last Reviewed 06/26/20 @ 10:05 by Mariaa Pierre DO) History of bilateral knee replacement (Acute) Medical History (Last Updated 06/26/20 @ 12:16 by Gemma Naranjo RN) Anxiety (Acute) COPD (chronic obstructive pulmonary disease) (Acute) Coronary artery disease (Acute) Other chronic pain (Acute) Pain in right hip (Acute) Prediabetes (Acute) Stroke (Acute) Tinea pedis (Acute) Physical Therapy Inpatient Evaluation/Re-Eval M1 PT/OT-IP Prior Functional Status Start: 06/27/20 12:40 Freq: NEEDED Status: Active Protocol: Document 06/27/20 10:50 AB (Rec: 06/27/20 12:53 AB [id number]) Medical Review Prior Functional Status Medical History Reviewed Yes Communication able to make needs known Mobility and Gait pt stated that she has help at [facility]; able to ambulate using a 4WW with assist; has a power w/c that she uses depending on R hip pain level Activities of Daily Living and IADL's has assist with toileting, showers and dressing Social History Household Members caregiver Living Arrangements Skilled Nurse Facility Number of Floors (Floors) One Floor Number of Stairs To Enter/Railing? no steps to enter Pt lives at [facility] Home Environment Standard Height Toilet,Walk in Shower Home Equipment Four Wheel Walker,Power Wheelchair/Scooter,Shower Seat with Backrest,Hospital Bed, Grab Bars Near Toilet,Grab Bars In Shower M2 PT-IP Current Condition Start: 06/27/20 12:40 Freq: NEEDED Status: Active Protocol: Document 06/27/20 10:50 AB (Rec: 06/27/20 12:53 AB [id number]) Physical Therapy Current Condition Current Condition Evaluation Date 06/27/20 Treatment Diagnosis COPD exacerbation; difficulty in walking Onset Date 06/26/20 M3 PT-IP Subjective Start: 06/27/20 12:40 Freq: NEEDED Status: Active Protocol: Document 06/27/20 10:50 AB (Rec: 06/27/20 12:53 AB [id number]) Subjective Physical Therapy Visit Type Type Initial Evaluation Visit Start Time 10:50 Visit Stop Time 11:14 Total Visit Minutes 24 Number of MALE MODEL Visits 0 Physical Therapy Visit Comments Patient Comments agreeable to do PT Therapy Pain Assessment Pain When Pain Assessed At Rest Pain Present Pain Present Pain Reported Location Right Hip Intensity 5 Scale Used Numeric (0 - 10) Pain Management Techniques Distraction,Re-positioning, Timing of Activity with Medications M4 PT-IP Mobility and Gait Start: 06/27/20 12:40 Freq: NEEDED Status: Active Protocol: Document 06/27/20 10:50 AB (Rec: 06/27/20 12:53 AB [id number]) PT-Bed Mobility Assessment Supine to Sit Supine to Sit Contact Guard Assistance,Head of Bed Elevated Sit to Supine Sit to Supine Standby Assistance,1 Person Assistance PT-Transfer Assessment Sit to and From Stand Sit to and from Stand Minimal Assistance,1 Person Assistance,Use of Upper Extremities Equipment Transfer Assistive Device Gait Belt,Front Wheeled Walker Orthotic/Prosthetic Devices or Brace: No Comments Mobility Comments pt has a hospital bed without rails at home. completed supine to sit with HOB elevated CGA and cues. completed sit to stand min A and cues and ambulated in room using FWW ~ 25 ft CGA. health and safety technician came in to do a procedure with pt and wants pt to be in bed. pt ambulated back to bed and completed sit to supine SBA. positioned pt in bed. call light and table placed within reach. Gait Assessment Gait Gait Assistance Required: Contact Guard Assist Distance (Feet) 25 Able to Maintain Weight Bearing Status Yes During Gait Assistive Devices Assistive Device Gait Belt,Front Wheeled Walker Orthotic/Prosthetic Devices or Brace: No Gait Deviations General Gait Pattern Antalgic,Decreased Stride Length,Decreased Feet Clearance Factors Limiting Gait Function Factors Limiting Gait Function Decreased Activity Tolerance, Decreased Strength,Pain,Poor Balance,Poor Safety Awareness, Respiratory Distress PT-Balance Assessment Sitting Balance and Reactions Static Sitting Balance Ability Good Dynamic Sitting Balance Ability Good Standing Balance and Reactions Static Standing Balance Ability Fair Dynamic Standing Balance Ability Fair Device Used FWW M5 PT-IP Objective Assessments Start: 06/27/20 12:40 Freq: NEEDED Status: Active Protocol: Document 06/27/20 10:50 AB (Rec: 06/27/20 12:53 AB [id number]) Orientation Orientation/Cognition Level of Alertness Alert Orientation Name,Place,Situation Language Function Ability Hard of Hearing Safety Awareness Decreased Safety Awareness Gross Range of Motion Lower Extremity ROM Assessment Within Functional Limits Strength Lower Extremity Strength Assessment Right Impaired Hip 3+/5 Knee 4-/5 Sensation Assessment Sensation Gross Sensation WNL Muscle Tone Muscle Tone WNL Yes M6 PT-IP Treatment Start: 06/27/20 12:40 Freq: NEEDED Status: Active Protocol: Document 06/27/20 10:50 AB (Rec: 06/27/20 12:53 AB [id number]) Physical Therapy Treatment Education Education Provided Safety M7 PT-IP Assessment and Plan Start: 06/27/20 12:40 Freq: NEEDED Status: Active Protocol: Document 06/27/20 10:50 AB (Rec: 06/27/20 12:53 AB [id number]) PT Summary Assessment and Plan Potential Rehabilitation Potential Good Status of Condition at Evaluation Stable Summary Impairments Pain,ROM,Strength,Balance, Cognition,Bed Mobility, Transfers,Gait,Activity Tolerance Assessment Summary pt requiring CGA to min A with mobility using FWW. pt lives at a LTC facility and pt stated that she pushes her call button for assistance whenever she has to get up. will assess safety with use of a 4WW. will continue to assess pt's progress. Goals Bed Mobility Goal Independent Transfer Goal Independent,Four Wheeled Walker Gait Goal Independent,Four Wheel Walker Gait Distance 150 Days to Meet Goals 5 Frequency of Treatment Frequency Of Treatment Once a Day Treatment Plan Physical Therapy Treatment Plan Bed Mobility Training,Transfer Training,Gait Training, Therapeutic Exercise,Balance Retraining,Discharge Planning, Hot or Cold Pack,Neuromuscular Re-ed,Coordination Retraining Other Recommendations and Next Treatment ambulation using 4WW, sit <> Focus stand Recommendations To Nursing Amount of Assist Needed 1 Person Assist Discharge Recommendations PT Discharge Recommendations Home with 24/ Assist,Home Health Equipment Needed for Home Before FWW if not safe with 4WW Discharge Transportation Needs at Discharge Private Vehicle,Wheelchair/ Cabulance
--- NOTE | 2020-06-27 11:02 | P.PN_ITS ---
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 She was admitted for COPD exacerbation and community-a cquired pneumonia. Overnight there were no significant events, however the patient has not improved symptomatically at all since yesterday. She has not required supplemental oxygen but still remains short of breath at rest. She is also intermittently tachypneic into the upper 20s. She has been afebrile. She still has a chronic cough, audible wheezing, and subjective shortness of breath. She denies any lower extremity swelling, orthopnea, palpitations, chest pain, nausea, vomiting, diaphoresis. Telemetry has revealed no events. Interestingly, 1 of her blood cultures came back positive for E coli and Enterobacter. She previously had a UTI that was treated approximately a month ago. She has had no new urinary symptoms. Have ordered for a UA today for further evaluation. Also given no relative improvement and euvolemia on physicial exam have ordered for an echocardiogram as well. Exam Vital Signs (past 8 hours): - 06/27/20 05:58 06/27/20 06:00 06/27/20 07:07 Temperature 97.8 F Pulse Rate 86 Respiratory Rate 18 Blood Pressure 128/74 Pulse Oximetry 95 95 96 06/27/20 07:31 06/27/20 08:04 06/27/20 08:12 Temperature 96.8 F L Pulse Rate 81 86 Respiratory Rate 24 24 Blood Pressure 133/96 H Pulse Oximetry 97 100 98 06/27/20 08:45 Temperature Pulse Rate Respiratory Rate Blood Pressure Pulse Oximetry 98 Oxygen Delivery Method Room Air Oxygen Flow Rate 0 Narrative Exam Narrative: GENERAL APPEARANCE: Well developed, well nourished, obese in no acute distress. SKIN: Inspection of the skin reveals no rashes, ulcerations or petechiae. HEENT: Normocephalic atraumatic, extraocular muscles are intact, oropharynx is clear and mucous membranes are moist, neck is supple without adenopathy. NECK: Supple and symmetric. There was no thyroid enlargement, and no tenderness, or masses were felt. No JVD. CHEST: Normal AP diameter and normal contour without any kyphoscoliosis. LUNGS: Auscultation of the lungs revealed coarse rhonchi bilaterally with upper airway inspiratory and expiratory wheezing. She is mildly tachypnic but not in respiratory distress. CARDIOVASCULAR: There was a regular rate and rhythm without any murmurs, gallops, rubs. Peripheral pulses were 2+ and symmetric. ABDOMEN: Soft and nontender with normal bowel sounds. No ascites was noted. MUSCULOSKELETAL: There was no tenderness or effusions noted. Muscle strength and tone were normal. EXTREMITIES: No cyanosis, clubbing or edema. NEUROLOGIC: Alert and oriented x 3. Normal affect. Gait was normal. Strength is +5/5 in the Upper Extremities and Lower Extremities Bilaterally with right-sided very mildly weaker than the left Sensation to touch was normal. Objective Labs Result Diagrams: 06/27/20 05:38 06/27/20 05:38 Labs: Laboratory Results - last 24 hr 06/26/20 06/27/20 06/27/20 09:25 05:38 05:38 WBC 9.6 RBC 3.98 L Hgb 11.6 L Hct 35.0 L MCV 87.9 MCH 29.0 MCHC 33.0 RDW 13.2 Plt Count 282 Neut % (Auto) 82.1 H Lymph % (Auto) 10.8 L [place] % (Auto) 6.6 Eos % (Auto) 0.0 L Baso % (Auto) 0.5 Neut # (Auto) 7900 H Lymph # (Auto) 1000 L [place] # (Auto) 600 Eos # (Auto) 0 Baso # (Auto) 0 Sodium 137 Potassium 4.2 Chloride 101 Carbon Dioxide 31 BUN 15 Creatinine 0.58 Estimated GFR > 60.0 BUN/Creatinine Ratio 25.9 H Glucose 203 H Calcium 9.3 Magnesium 2.3 Total Bilirubin 0.5 Conjugated Bilirubin 0.0 Unconjugated Bilirubin 0.3 AST 29 ALT 22 Alkaline Phosphatase 108 Total Protein 7.0 Albumin 3.9 Globulin 3.1 Albumin/Globulin Ratio 1.3 A. baumannii (PCR) Chlamy pneumoniae PCR Not detected Adenovirus (PCR) Not detected B.parapertussis DNA PCR Not detected Nimisha albicans (PCR) C. glabrata (PCR) C. krusei (PCR) C. parapsilosis (PCR) C. tropicalis (PCR) Coronavirus OC43 (PCR) Not detected Coronavirus HKU1 (PCR) Not detected Coronavirus 229E (PCR) Not detected Coronavirus NL63 (PCR) Not detected Enterobacteriac sp PCR E. cloacae complex PCR Enterococcus sp PCR E. coli (PCR) H. influenzae (PCR) Human Metapneumovir PCR Not detected Influenza Type A (PCR) Not detected Influenza Type B (PCR) Not detected Klebsiella oxytoca PCR Klebsiella pneumoniae List. monocytogenes PCR M. pneumoniae (PCR) Not detected N. meningitidis (PCR) Parainfluenza 1 (PCR) Not detected Parainfluenza 2 (PCR) Not detected Parainfluenza 3 (PCR) Not detected Parainfluenza 4 (PCR) Not detected Proteus species (PCR) RSV (PCR) Not detected Entero/Rhino (PCR) Not detected Serratia marcescens PCR Staphylococcus sp PCR Staph aureus (PCR) mecA-Methicil Res Gene Streptococcus sp PCR Group A Strep (PCR) Strep agalactiae (PCR) Strep pneumoniae (PCR) P. aeruginosa (PCR) Kelly/B-Vanco Res Genes KPC-Carbap Res Gene PCR 06/27/20 09:20 WBC RBC Hgb Hct MCV MCH MCHC RDW Plt Count Neut % (Auto) Lymph % (Auto) [place] % (Auto) Eos % (Auto) Baso % (Auto) Neut # (Auto) Lymph # (Auto) [place] # (Auto) Eos # (Auto) Baso # (Auto) Sodium Potassium Chloride Carbon Dioxide BUN Creatinine Estimated GFR BUN/Creatinine Ratio Glucose Calcium Magnesium Total Bilirubin Conjugated Bilirubin Unconjugated Bilirubin AST ALT Alkaline Phosphatase Total Protein Albumin Globulin Albumin/Globulin Ratio A. baumannii (PCR) Not detected Chlamy pneumoniae PCR Adenovirus (PCR) B.parapertussis DNA PCR Nimisha albicans (PCR) Not detected C. glabrata (PCR) Not detected C. krusei (PCR) Not detected C. parapsilosis (PCR) Not detected C. tropicalis (PCR) Not detected Coronavirus OC43 (PCR) Coronavirus HKU1 (PCR) Coronavirus 229E (PCR) Coronavirus NL63 (PCR) Enterobacteriac sp PCR Detected H E. cloacae complex PCR Not detected Enterococcus sp PCR Not detected E. coli (PCR) Detected H H. influenzae (PCR) Not detected Human Metapneumovir PCR Influenza Type A (PCR) Influenza Type B (PCR) Klebsiella oxytoca PCR Not detected Klebsiella pneumoniae Not detected List. monocytogenes PCR Not detected M. pneumoniae (PCR) N. meningitidis (PCR) Not detected Parainfluenza 1 (PCR) Parainfluenza 2 (PCR) Parainfluenza 3 (PCR) Parainfluenza 4 (PCR) Proteus species (PCR) Not detected RSV (PCR) Entero/Rhino (PCR) Serratia marcescens PCR Not detected Staphylococcus sp PCR Not detected Staph aureus (PCR) Not detected mecA-Methicil Res Gene Not Reportable Streptococcus sp PCR Not detected Group A Strep (PCR) Not detected Strep agalactiae (PCR) Not detected Strep pneumoniae (PCR) Not detected P. 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 She is admitted under observation status at this time for COPD exacerbation with possible community-acquired pneumonia. 1. COPD exacerbation - RT eval and treat - Pulmicort BID, duonebs q4HR while awake, and prn Albuterol. - continue prednisone 40 mg x4 days. Given solumedrol 125 mg in the ER. -COVID-19 testing and full respiratory panel was negative. Her chest x-ray was clear but history is consistent with community-acquired pneumonia. Will treat with antibiotics and prednisone at this time. Her tachypnea does not appear to be related to volume overload as she appears euvolemic on exam. 2. Community-acquired pneumonia, acute, present on admission -patient reports measured fever of 100.7, with productive cough and sputum production. Respiratory panel in COVID-19 testing were negative. Patient had a negative chest x-ray without infiltrates, but will treat clinically for community-acquired pneumonia with ceftriaxone and azithromycin. 3. Possible E. coli / Eneterococcal bacteremia, present on admission - patient's initial blood cultures with E. coli and enterobacter on PCR testing. UA was not performed on admission given lack of symptoms including dysuria or urinary frequency. Have ordered for repeat UA. Patient did have a UTI which was treated approximately a month ago. -will continue ceftriaxone azithromycin as above for community-acquired pneumonia which patient clinically presented with and ceftriaxone will likely cover E. Coli and enterobacter. -no need for repeat blood cultures unless febrile -current blood cultures also listed as no growth, unclear as to the significance of positive PCR testing without growth 4. Coronary artery disease, chronic, present on admission -continue home Plavix and Lipitor 5. Prior CVA -continue home Plavix 75 mg daily, continue home Lipitor 40 mg daily 6. Chronic heart failure of unknown type, present on admission - continue home losartan 100 mg, coreg 6.25 mg BID, and HCTZ 6.25 mg. -patient appears euvolemic at this time. Indeterminate BNP on admission in the 200s. Given no significant improvement with initial therapies for community- acquired pneumonia and COPD exacerbation, have ordered echocardiogram to reassess her heart failure. 7. Right hip osteoarthritis, chronic -continue home pain medications including hydrocodone, and cyclobenzaprine. Have increased hydrocodone today due to increased pain. -PT evaluation 8. Prediabetes -hold home metformin -continue fingersticks a.c. HS with low-dose sliding scale as needed Diet: HH/carb consistent diet. Code: Full as discussed with the patient, surrogate decision maker is the patient's daughter. DVT: Lovenox daily Dispo: Changed to inpatient status today. Quality VTE Deep Vein Thrombosis/Pulmonary Embolism Present on Admission: No
[2020-06-27] MEDS: SODIUM CHLORIDE 0.9% FLUSH 10 ML IV (12:19)
[2020-06-27] MEDS: CEFTRIAXONE 1 GM/50 ML FROZ.PIGGY IV (12:20)
--- NOTE | 2020-06-27 13:00 | CM.DANOTE ---
DCP assessment: EMR reviewed: Patient is a 59 yr old female who was admitted for COPD exacerbation and pneumonia, Patients PCP is Dr. Landa. CM/RN met with patient at the bedside and explained role. patient was alert and oriented at time of Cm/RN visit. Patient currently lives at [facility] and receives nursing services for medication management and manager of care support. Patient states she is Independent with eating, dressing and ambulating with a walker most of the time but usually requires some help with bathing and doesn't drive. ECHO pending and PT evaluation states patient patient can return to [facility] at D/C and may need a FWW for home used at D/C. I: Medicaid and selfpay Plan: D/C back to [facility] when medically stable. No identified D/c planning needs noted at this time. Daisy Workman RN Discharge Planning/Care Management CM Discharge Assessment Start: 06/27/20 12:57 Freq: Status: Active Protocol: Document 06/27/20 12:57 (Rec: 06/27/20 13:00 [id number]) Discharge Planning Assessment Assigned Shop Girl Daisy Wrokman RN DPOA/Assigned Designee Name Aylin Newsome (daughter) Contact Information [phone] Advance Directives? No History Provided By Patient,Medical Record Has Patient been admitted in last 30 No days? Prior Living Arrangements Skilled Nurse Facility Comment edna lives at [facility] Household Members caregiver Type of transporation used prior to Relies on Others admit Facility Name Admitted From: [facility] Willing to Return to Facility? Yes Independent with ADL's No: needs help with bathing and medication regularly Is patient alert and oriented? Yes Needs Assistance With Bathing,Managing Medications Caregiver for Another No DME Already Rented / Owned FWW / Walker,Cane Comment edna has an old 4WW but does not have a FWW may need one depending on PT evaluation . Discharge Plan Assisted Living Facility Referrals Initiated None needed Whiteboard Updated in Patient Room with Yes name and ext. # of Shop Girl Review Status In Process Next Review Type Continued Stay Review
[2020-06-27 13:46] LABS: Bacteria Urine None Seen; RBC Urine None Seen (0-5/HPF)
[2020-06-27 13:49] LABS: Appearance Urine UA CLEAR; Bilirubin Urine UA NEGATIVE (NEGATIVE); Color Urine UA YELLOW; Glucose Urine UA NEGATIVE (Negative); Ketones Urine UA NEGATIVE (NEGATIVE); Leukocyte Esterase Urine UA NEGATIVE (NEGATIVE); Nitrite Urine UA NEGATIVE (Negative); Occult Blood Urine UA NEGATIVE (Negative); Protein Urine UA NEGATIVE (Negative); Specific Gravity Urine UA <=1.005 (1.000-1.035); Urobilinogen Urine UA 0.2 E.U./dL (0.2)
[2020-06-27] MEDS: AZITHROMYCIN 500 MG in DEXTROSE 5% IN WATER 250 ML IV (13:52)
[2020-06-27 13:53] LABS: pH Urine UA 6.5 (4.5-8.0)
[2020-06-27 13:57] LABS: Culture Indicated Urine Cult Not Indicated; Squamous Epithelial Cell Urine 5-10 /HPF (0-5/HPF); WBC Urine 1-5/HPF (0-5/HPF)
[2020-06-27] MEDS: ATORVASTATIN 20 MG TABLET 40 MG PO (20:30)
[2020-06-27] MEDS: MELATONIN 3 MG TABLET PO (20:30)
[2020-06-27] MEDS: guaiFENesin Solution 100 MG/5 ML UDC 200 MG PO (20:31)
[2020-06-28] VITALS (17 sets, daily range): BP systolic 122–151; BP diastolic 61–109; PULSE 74–96; RESP 16–24; TEMP 36.2–36.8; O2SAT 93–99
[2020-06-28] MEDS: TRAZODONE 50 MG TABLET 25 MG PO (00:15)
[2020-06-28] MEDS: CYCLOBENZAPRINE 5 MG TABLET PO ×2 (00:16→11:00)
[2020-06-28] MEDS: HYDROCODONE/ACET 5/325 TABLET 2 TAB PO ×3 (00:30→11:00)
[2020-06-28] MEDS: PANTOPRAZOLE 20 MG TABLET PO (05:14)
[2020-06-28] MEDS: BUDESONIDE 0.5 MG/2 ML NEB INH ×2 (05:45→19:55)
[2020-06-28] MEDS: ALBUTEROL/IPRATROPIUM 3 ML AMPUL INH ×4 (05:45→19:55)
--- NOTE | 2020-06-28 06:47 | PC.NURSE ---
Per lab, ESBL in Blood culture - requires isolation. DEBBIE Montes informed.
[2020-06-28 07:06] LABS: Add Manual Diff / Slide Review NO; Basophils Absolute Auto 100 /uL (0-100); Basophils Percent Auto 0.8 % (0-2); Eosinophils Absolute Auto 0 /uL (0-450); Eosinophils Percent Auto 0.4 % (2-4); Hematocrit 35.3 % (36-46); Hemoglobin 11.7 g/dL (12.0-16.0); Lymphocytes Absolute Auto 2100 /uL (1100-4500); Lymphocytes Percent Auto 20.5 % (25-40); Mean Corpuscular HGB Conc 33.2 % (30-36); Mean Corpuscular Hemoglobin 29.3 PG (26-34); Mean Corpuscular Volume 88.3 fL (80-100); Monocytes Absolute Auto 900 /uL (0-900); Monocytes Percent Auto 8.3 % (3-14); Neutrophils Absolute Auto 7200 /uL (1500-7000); Platelet Count 327 X10^3/uL (150-400); Red Cell Distribution Width 13.1 % (11.6-14.8); White Blood Cell Count 10.3 X10^3/uL (4.5-11.0)
[2020-06-28 07:18] LABS: Alanine Aminotransferase 21 IU/L (<35); Albumin 3.9 g/dL (3.5-5.0); Albumin Globulin Ratio 1.3 (1.0-2.8); Alkaline Phosphatase 103 U/L (38-126); Aspartate Aminotransferase 31 IU/L (14-36); Bilirubin Total 0.4 mg/dL (0.2-1.3); Bilirubin Unconjugated 0.2 mg/dL (0.0-1.1); Blood Urea Nitrogen 21 mg/dL (7-17); Calcium 9.1 mg/dL (8.4-10.2); Carbon Dioxide 29 mmol/L (22-32); Chloride 103 mmol/L (98-107); Estimated Glomerular Filt Rate > 60.0 mL/min (>60); Glucose 124 mg/dL (70-100); HEMOLYSIS < 15 (0-50); Magnesium 2.2 mg/dL (1.6-2.3); Potassium 3.4 mmol/L (3.4-5.1); Sodium 138 mmol/L (137-145); Total Protein 6.9 g/dL (6.3-8.2)
[2020-06-28] MEDS: SODIUM CHLORIDE 0.9% FLUSH 10 ML IV (09:00)
[2020-06-28] MEDS: hydroCHLOROthiazide 25 MG TABLET 6.25 MG PO (09:00)
[2020-06-28] MEDS: ENOXAPARIN 40 MG/0.4 ML SYRINGE SUBCUT (09:00)
[2020-06-28] MEDS: LOSARTAN 50 MG TABLET 100 MG PO (09:01)
[2020-06-28] MEDS: PREGABALIN 25 MG CAPSULE PO ×3 (09:01→20:56)
[2020-06-28] MEDS: SERTRALINE 50 MG TABLET PO (09:01)
[2020-06-28] MEDS: CLOPIDOGREL 75 MG TABLET PO (09:01)
[2020-06-28] MEDS: predniSONE 20 MG TABLET 40 MG PO (09:01)
[2020-06-28] MEDS: carvediloL 12.5 MG TABLET PO ×2 (09:01→20:56)
[2020-06-28] MEDS: SODIUM CHLORIDE 0.9% 250 ML 21 ML IV (11:00)
[2020-06-28] MEDS: POTASSIUM CHLORIDE 20 MEQ TAB 40 MEQ PO (11:01)
[2020-06-28] MEDS: MEROPENEM 1 GM/50 ML PIGGYBACK IV ×2 (11:01→20:55)
--- NOTE | 2020-06-28 11:16 | PT.IPTN ---
Current Diagnoses Chronic obstructive pulmonary disease with (acute) exacerbation (06/27/20) Physical Therapy Treatment Note M2 PT-IP Current Condition Start: 06/27/20 12:40 Freq: NEEDED Status: Active Protocol: Document 06/27/20 10:50 AB (Rec: 06/27/20 12:53 AB [id number]) Physical Therapy Current Condition Current Condition Evaluation Date 06/27/20 Treatment Diagnosis COPD exacerbation; difficulty in walking Onset Date 06/26/20 M3 PT-IP Subjective Start: 06/27/20 12:40 Freq: NEEDED Status: Active Protocol: Document 06/28/20 11:16 AB (Rec: 06/28/20 12:10 AB [id number]) Subjective Physical Therapy Visit Type Type Treatment Note Visit Start Time 11:16 Visit Stop Time 11:45 Total Visit Minutes 29 Number of REVERSER Visits 0 Physical Therapy Visit Comments Patient Comments pt is agreeable to do PT Therapy Pain Assessment Pain When Pain Assessed At Rest Pain Present Pain Present Pain Reported Location Right Hip Scale Used pain scale not stated Pain Management Techniques Distraction,Re-positioning, Timing of Activity with Medications M4 PT-IP Mobility and Gait Start: 06/27/20 12:40 Freq: NEEDED Status: Active Protocol: Document 06/28/20 11:16 AB (Rec: 06/28/20 12:10 AB [id number]) PT-Bed Mobility Assessment Supine to Sit Supine to Sit Standby Assistance,Head of Bed Elevated,Bedrails Sit to Supine Sit to Supine Standby Assistance Scooting Scooting to Edge of Bed Standby Assistance PT-Transfer Assessment Sit to and From Stand Sit to and from Stand Standby Assistance,1 Person Assistance,Use of Upper Extremities Equipment Transfer Assistive Device Gait Belt,4 Wheeled Walker Orthotic/Prosthetic Devices or Brace: No Comments Mobility Comments pt completed supine to sit SBA with HOB elevated and use of bed rail. pt stated that her 4WW was given to her and no actual gait training with 4WW was done before. pt then educated regarding use of 4WW and how to manage brakes and safety whe sitting on 4WW. pt completed ambulation in room using 4WW CGA ~ 75 ft. completed sit <>stand x 3 reps and with pt managing 4WW brakes. educated on safety and how to use 4WW when pt has to sit on it. completed positioning 4WW, locking brakes and turning ti sit on 4WW CGA and was able to stand up from 4WW and turn around and ambulate back to her bed CGA. completed sit to supine SBA with HOB elevated. positioned pt on bed. call light and table placed within reach. Gait Assessment Gait Gait Assistance Required: Contact Guard Assist Distance (Feet) 75 Able to Maintain Weight Bearing Status Yes During Gait Assistive Devices Assistive Device Gait Belt,4 Wheeled Walker Orthotic/Prosthetic Devices or Brace: No Gait Deviations General Gait Pattern Antalgic,Decreased Stride Length,Decreased Feet Clearance,Step-to Gait Factors Limiting Gait Function Factors Limiting Gait Function Decreased Activity Tolerance, Decreased Strength,Limited Range of Motion,Pain,Poor Balance,Poor Safety Awareness Comments Gait Comments pls refer to mobility section for details M5 PT-IP Objective Assessments Start: 06/27/20 12:40 Freq: NEEDED Status: Active Protocol: Document 06/27/20 10:50 AB (Rec: 06/27/20 12:53 AB [id number]) Orientation Orientation/Cognition Level of Alertness Alert Orientation Name,Place,Situation Language Function Ability Hard of Hearing Safety Awareness Decreased Safety Awareness Gross Range of Motion Lower Extremity ROM Assessment Within Functional Limits Strength Lower Extremity Strength Assessment Right Impaired Hip 3+/5 Knee 4-/5 Sensation Assessment Sensation Gross Sensation WNL Muscle Tone Muscle Tone WNL Yes M6 PT-IP Treatment Start: 06/27/20 12:40 Freq: NEEDED Status: Active Protocol: Document 06/28/20 11:16 AB (Rec: 06/28/20 12:10 AB [id number]) Physical Therapy Treatment Education Education Provided Safety M7 PT-IP Assessment and Plan Start: 06/27/20 12:40 Freq: NEEDED Status: Active Protocol: Document 06/28/20 11:16 AB (Rec: 06/28/20 12:10 AB [id number]) PT Summary Assessment and Plan Potential Rehabilitation Potential Good Summary Impairments Pain,ROM,Strength,Balance, Coordination,Sensation,Tone, Cognition,Bed Mobility, Transfers,Gait,Activity Tolerance Progress Towards Goals Progressing Toward Goals Assessment Summary pt is progressing with mobility. able to use 4WW with CGA. pt stated that her 4WW at home is too high for her because it was just given to her by a family member. Pt . lives in an [place] and informed pt that the social science analyst at her facility should process on how pt can obtain her personal 4WW. pt understood and agreed. Goals Bed Mobility Goal Independent Transfer Goal Independent,Four Wheeled Walker Gait Goal Independent,Four Wheel Walker Gait Distance 150 Days to Meet Goals 5 Frequency of Treatment Frequency Of Treatment Once a Day Treatment Plan Physical Therapy Treatment Plan Bed Mobility Training,Transfer Training,Gait Training, Therapeutic Exercise,Balance Retraining,Discharge Planning, Hot or Cold Pack,Neuromuscular Re-ed,Coordination Retraining Other Recommendations and Next Treatment ambulation using 4WW, sit <> Focus stand Recommendations To Nursing Amount of Assist Needed 1 Person Assist Discharge Recommendations PT Discharge Recommendations Home with 22/06 Assist,Home Health Transportation Needs at Discharge Private Vehicle,Wheelchair/ Cabulance
--- NOTE | 2020-06-28 11:58 | CM.DPNOTE ---
DCP Cont Met patient and needs discussed in morning multidisciplinary bed side rounds. Patient will require ongoing IV abx according to Dr Goldstein, approx 3-10 additional days. IV abx cannot be administered at [facility] and patient agreeable to short term stay at [facility]. Placed call to give referral to [facility], she will review. Following closely. PAUL
[2020-06-28] MEDS: INSULIN ASPART 100 UNIT/ML INSULN PEN SUBCUT ×2 (12:00→17:56)
--- NOTE | 2020-06-28 13:10 | PC.NURSE ---
Day Shift- At 1200, Pt had finished working with PT and stated feeling dizzy and light-headed, woozy. COMPOUND FILLER was checking BP at this time while pt sitting upright in bed. BP was reading as 41/23. Pt alert, conversing with this RN appropriately, no other symptoms besides as stated above. BP rechecked by COMPOUND FILLER at 1300 as 122/61. Pt has upper lung field expiratory wheeze, SOBOE, diminished AE to bilateral lobe bases. O2 sat above 93% on RA, on rest O2 sat is between 95-98% on RA.
[2020-06-28] MEDS: AZITHROMYCIN 500 MG in DEXTROSE 5% IN WATER 250 ML IV (15:33)
--- NOTE | 2020-06-28 15:51 | PM.PN.1 ---
Subjective Subjective Date Patient Seen: 06/28/20 Interval history: Cira Stafford is a with a past medical histor significant for CAD status post OH, prior CVA with mild residual right-sided weakness, diastolic congestive heart failure, COPD, right hip osteoarthritis, and prediabetes who is a resident of [facility] in private apartment without assistance and presented to ED with worsening shortness of breath over the past two days. The patient is resting in bedside chair comfortably. The patient's blood cultures are positive for ESBL E. coli with no urinalysis performed in ED prior to antibiotic administration. Patient endorses dysuria, bilateral flank pain, fever, chills and rigors prompting evaluation in the emergency department. Plan for CT abdomen and pelvis with and without contrast to assess for pyelonephritis, nephrolithiasis, and obstruction. The patient endorses right hip pain and requests something stronger than her normal Vicodin. She has no other complaints denies headache, chest pain, shortness of breath, abdominal pain, nausea, vomiting, fever, chills, diarrhea or constipation. The patient is voiding and eliminating without difficulty. She is up ambulating with assistance. Exam Vital Signs (past 8 hours): - 06/28/20 08:00 06/28/20 08:43 06/28/20 08:50 Temperature 98.3 F Pulse Rate 79 74 Respiratory Rate 21 24 Blood Pressure 143/81 H Pulse Oximetry 98 99 96 06/28/20 11:15 06/28/20 12:00 06/28/20 13:04 Temperature 97.2 F L Pulse Rate 75 Respiratory Rate 18 Blood Pressure 122/61 Pulse Oximetry 96 97 06/28/20 15:34 06/28/20 15:36 Temperature 97.3 F L Pulse Rate 96 H 89 Respiratory Rate 20 24 Blood Pressure 144/61 H Pulse Oximetry 98 98 Oxygen Delivery Method Room Air Oxygen Flow Rate 0 Narrative Exam Narrative: General: Older female sitting in bedside chair and in no acute distress, appears older than stated age, well-developed, well-nourished, appropriately interactive. HEENT: Normocephalic, atraumatic. External ears without defect. Pupils equal, round, and reactive to light. Anicteric sclerae, moist conjunctivae, and no lid lag. Oropharynx free of erythema and cobble stoning with moist mucosa. Neck: Supple with full range of motion. No lymphadenopathy or thyromegaly. Cardiovascular: Regular rate and rhythm without murmurs, rubs, or gallops appreciated Pulmonary: Clear to auscultation bilaterally without crackles, wheezes, or rhonchi. Normal respiratory effort with no use of accessory muscles. Abdomen: Soft, obese, bowel sounds present, nontender, nondistended. Mild bilateral flank tenderness to palpation. Extremities: No clubbing, cyanosis, or edema. Skin: Normal temperature, turgor, and texture; no rash, ulcers, or subcutaneous nodules appreciated. Neurological: Cranial nerves grossly intact. Psychiatric: Normal mood and affect. Poor insight. Alert and oriented to person, place, and time. Objective Labs Result Diagrams: 06/28/20 06:40 06/28/20 06:40 Labs: Laboratory Results - last 24 hr 06/28/20 06/28/20 06:40 06:40 WBC 10.3 RBC 4.00 Hgb 11.7 L Hct 35.3 L MCV 88.3 MCH 29.3 MCHC 33.2 RDW 13.1 Plt Count 327 Neut % (Auto) 70.0 Lymph % (Auto) 20.[address] [place] % (Auto) 8.3 Eos % (Auto) 0.4 L Baso % (Auto) 0.8 Neut # (Auto) 7200 H Lymph # (Auto) 2100 [place] # (Auto) 900 Eos # (Auto) 0 Baso # (Auto) 100 Sodium 138 Potassium 3.4 Chloride 103 Carbon Dioxide 29 BUN 21 H Creatinine 0.60 Estimated GFR > 60.0 BUN/Creatinine Ratio 35.0 H Glucose 124 H Calcium 9.1 Magnesium 2.2 Total Bilirubin 0.4 Conjugated Bilirubin 0.0 Unconjugated Bilirubin 0.2 AST 31 ALT 21 Alkaline Phosphatase 103 Total Protein 6.9 Albumin 3.9 Globulin 3.0 Albumin/Globulin Ratio 1.3 Assessment & Plan Assessment & Plan narrative: Cira Stafford is a with a past medical histor significant for CAD status post OH, prior CVA with mild residual right-sided weakness, diastolic congestive heart failure, COPD, right hip osteoarthritis, and prediabetes who is a resident of [facility] living [facility] in private apartment without assistance and presented to ED with worsening shortness of breath over the past two days. 1. ESBL E. coli bacteremia and UTI, present on admission. Active. -Initial blood cultures positive for ESBL E. coli in 1 of 4 aerobic bottles. Urinalysis was not performed in ED. -Patient reports history of dysuria with fevers, chills, rigors and bilateral flank pain. -Initial WBC normal at 10.9 and procalcitonin slightly elevated at 0.20. Continue to monitor WBC and procalcitonin closely. -Echocardiogram did not demonstrate any obvious valvular vegetations and patient has no significant clinical findings on heart exam such as murmur. -Ordered CT abdomen and pelvis with and without contrast to assess for pyelonephritis and nephrolithiasis as patient has recurrent UTI, pending. -Discontinued ceftriaxone. Started meropenem 1 g every 8 hours for which patient will need 3 days total of IV antibiotics and 10 days total of antibiotic treatment. Could consider starting fluoroquinolone, however, high probability organism will become resistant. -Recommend referral to urology as an outpatient to assess system and nidus for infection as patient has multiple recurrent UTI in the last 6 months. 2. Acute COPD exacerbation, present on admission. Resolving. -Patient presented with increasing shortness of breath, increased sputum production with productive cough and reported fever at assisted living facility. -Continue respiratory therapy evaluation and treatment. Continue DuoNebs every 4 hours while awake and albuterol nebs every 4 hours as needed for shortness of breath or wheezing. Received methylprednisolone and 25 mg IV x1 in ED. Continue prednisone 40 mg daily for total of 5 doses of glucocorticoids. Continue Mucinex 1200 mg twice daily. Continue Acapella every 10 times every 1 hour. -Continue prednisone 40 mg daily for total of 5 doses of glucocorticoids and received azithromycin 500 mg x 3 doses. 3. Ruled out community acquired pneumonia. -Chest x-ray did not demonstrate any acute cardiopulmonary process. -Patient with reported fever of 100.7? F at assisted living facility with source now felt to be ESBL as above E. coli UTI and bacteremia. Patient has productive cough and sputum production due to COPD exacerbation as above. Respiratory panel and COVID-19 negative. -Continue treatment of ESBL E coli UTI and bacteremia and COPD exacerbation as above. 4. ASCVD with CAD status post OH and previous CVA with residual right-sided weakness, chronic, present on admission. Stable. -Continue home Plavix 75 mg daily and atorvastatin 40 mg daily both of which are not listed on medication reconciliation and will need to confirm prior to discharge. 5. Chronic diastolic congestive heart failure, present on admission. Stable. -Does not represent CHF exacerbation. -ProBNP 265. Patient euvolemic on clinical exam. -Chest x-ray did not demonstrate any acute cardiopulmonary process. -Continue home carvedilol 6.25 mg twice daily, hydrochlorothiazide 6.25 mg daily and losartan 100 mg daily. -Echocardiogram relatively unchanged since 2017 and demonstrated normal LV size and function with EF 60-65%, no focal wall motion abnormalities, stage I diastolic dysfunction, RV normal size and function, PA pressures cannot be estimated because of the lack of a measurable TR jet velocity and is no hemodynamically significant valvular abnormalities. -Continue to monitor strict I&Os and daily weights. 6. Right hip osteoarthritis, chronic, present on admission. Stable. -Switched home hydrocodone 5-325 every 4 hours (normally every 12 hours) as needed to oxycodone 5 mg every 6 hours. -Continue home cyclobenzaprine 5 mg 3 times daily as needed for muscle spasm. -Continue physical therapy and occupational therapy evaluation and treatment. 7. Prediabetes, chronic, present on admission. Stable. -Hemoglobin A1c 5.7 % in 04/2020. -Held home metformin. -Continue [facility] blood glucose checks and low-dose correctional scale insulin. -Continue carbohydrate/heart healthy diet. Code status: Full Code, patient designates surrogate decision maker as her daughter VTE prophylaxis: Enoxaparin, SCDs Disposition: Patient likely discharge to snf facility in the next 1-2 days pending insurance authorization for continued IV antibiotics for 10 days total. Quality VTE Deep Vein Thrombosis/Pulmonary Embolism Present on Admission: No
--- NOTE | 2020-06-28 16:34 | DI.CT.S_ITS ---
PROCEDURE: CT ABDOMEN PELVIS WO/W CON INDICATIONS: ESBL E. coli Bacteremia and recurrent UTI/pyelo TECHNIQUE: Optional 5 mm thick noncontrast images acquired from the diaphragm to the symphysis pubis. After the administration of intravenous contrast, 5 mm thick images acquired from the diaphragm to the symphysis pubis. 2 mm thick coronal and sagittal reformats were then performed of the kidneys and ureters. For radiation dose reduction, the following was used: automated exposure control, adjustment of mA and/or kV according to patient size. COMPARISON: None. FINDINGS: Image quality: Excellent. Lung bases: Lung bases are clear. Heart size is normal. Urinary system: Both kidneys are normal in size, without hydronephrosis or nephrolithiasis on pre-contrast images. No perinephric fat stranding. At the superior poles of both kidneys, there are hyperdense renal masses. On the right, there is a mass seen measuring 3.2 cm and measuring 42 Hounsfield units on precontrast imaging and 41 Hounsfield units on post-contrast imaging. On the left, there is a 2.1 cm mass that measures 61 Hounsfield units on precontrast imaging and 60 Hounsfield units on post-contrast imaging. Opacified portions of both ureters demonstrate normal caliber. The bladder is partially decompressed at the time of this study, which limits its evaluation. However, there is moderate circumferential bladder wall thickening seen. Other solid organs: Liver is normal in size and enhancement. Diffuse fatty liver infiltration is noted. Gallbladder is collapsed at the time of this study. Biliary system is non dilated. Pancreas enhances normally. Spleen is normal in size and enhancement. No adrenal nodules. Peritoneum and bowel: Bowel loops demonstrate normal wall thickness and caliber. No free fluid or air. A normal appendix is incidentally noted. Nodes and vessels: No retroperitoneal or mesenteric adenopathy by size criteria. Aorta and inferior vena cava are normal in size. Abdominal wall: No ventral hernias. Pelvis: No pathologic free pelvic fluid. No inguinal hernias or adenopathy. The uterus appears normal for age. No adnexal masses are seen. Bones: No suspicious bony lesions. There is a remote appearing L1 anterior wedge deformity, with 20% loss of height anteriorly. No acute appearing vertebral body compression fractures. Mild dextroconvex scoliotic curvature is seen. Mild grade 1 anterolisthesis is seen at L5-S1, without associated pars defects. Degenerative changes are seen throughout, which are most prominent involving the lower lumbar spine and the right hip. IMPRESSION: Moderate circumferential bladder wall thickening is seen, which is consistent with the given history of urinary tract infraction. No findings of hydronephrosis or pyelonephritis can be seen. Negative for abscess. Note is made of nonenhancing hyperdense/hemorrhagic cysts involving the superior aspects of each kidney. Incidental note is made of: Fatty liver infiltration Dextroconvex scoliotic curvature Remote L2 anterior wedge deformity Lower lumbar spine degenerative change Focal right hip degenerative change Normal appendix Dictated by: Chi Barrett M.D. on 06/28/2020 at 16:18 Approved by: Chi Barrett M.D. on 06/28/2020 at 16:23
[2020-06-28] MEDS: OXYCODONE IR 5 MG TABLET PO (16:56)
[2020-06-28] MEDS: MELATONIN 3 MG TABLET PO (20:56)
[2020-06-28] MEDS: ATORVASTATIN 20 MG TABLET 40 MG PO (20:56)
[2020-06-29] VITALS (9 sets, daily range): BP systolic 132–155; BP diastolic 60–109; PULSE 73–90; RESP 12–22; TEMP 36.4–37.2; O2SAT 96–98
[2020-06-29 00:19] LABS: Procalcitonin 0.16 ng/mL (<0.5)
[2020-06-29] MEDS: OXYCODONE IR 5 MG TABLET PO ×3 (00:35→13:46)
[2020-06-29] MEDS: CYCLOBENZAPRINE 5 MG TABLET PO ×2 (00:39→08:10)
[2020-06-29] MEDS: MEROPENEM 1 GM/50 ML PIGGYBACK IV ×2 (04:24→13:02)
[2020-06-29 06:05] LABS: Hematocrit 36.2 % (36-46); Hemoglobin 11.6 g/dL (12.0-16.0); Mean Corpuscular Hemoglobin 28.3 PG (26-34); Mean Corpuscular Volume 88.3 fL (80-100); Platelet Count 362 X10^3/uL (150-400); White Blood Cell Count 8.3 X10^3/uL (4.5-11.0)
[2020-06-29 06:08] LABS: Add Manual Diff / Slide Review YES
[2020-06-29 06:10] LABS: BUN Creatinine Ratio 34.5 (6-22); Blood Urea Nitrogen 20 mg/dL (7-17); Calcium 9.2 mg/dL (8.4-10.2); Carbon Dioxide 31 mmol/L (22-32); Chloride 103 mmol/L (98-107); Estimated Glomerular Filt Rate > 60.0 mL/min (>60); Glucose 105 mg/dL (70-100); HEMOLYSIS < 15 (0-50); Potassium 3.9 mmol/L (3.4-5.1); Sodium 139 mmol/L (137-145)
[2020-06-29 07:13] LABS: Neutrophils Absolute Manual 4482 /uL (3000-5900); Nucleated Red Blood Cells 2 #/Diff; Total Cells Counted 100
[2020-06-29 07:14] LABS: Polychromasia 1+
[2020-06-29] MEDS: PANTOPRAZOLE 20 MG TABLET PO (07:40)
[2020-06-29] MEDS: carvediloL 12.5 MG TABLET PO (08:09)
[2020-06-29] MEDS: PREGABALIN 25 MG CAPSULE PO (08:10)
[2020-06-29] MEDS: CLOPIDOGREL 75 MG TABLET PO (08:12)
[2020-06-29] MEDS: hydroCHLOROthiazide 25 MG TABLET 6.25 MG PO (08:12)
[2020-06-29] MEDS: LOSARTAN 50 MG TABLET 100 MG PO (08:13)
[2020-06-29] MEDS: guaiFENesin ER 600 MG TAB 1200 MG PO (08:13)
[2020-06-29] MEDS: SERTRALINE 50 MG TABLET PO (08:13)
[2020-06-29] MEDS: SODIUM CHLORIDE 0.9% FLUSH 10 ML IV ×2 (08:14→13:04)
[2020-06-29] MEDS: ENOXAPARIN 40 MG/0.4 ML SYRINGE SUBCUT (08:14)
[2020-06-29] MEDS: BUDESONIDE 0.5 MG/2 ML NEB INH (09:29)
[2020-06-29] MEDS: ALBUTEROL/IPRATROPIUM 3 ML AMPUL INH (09:29)
--- NOTE | 2020-06-29 10:05 | PM.DS.1 ---
History of Present Illness History of Present Illness Date Patient Seen: 06/26/20 Chief complaint: SOB Narrative: Written by Dr. Salinas: Cira Stafford is a 59 year old female with PMH of CAD, prior PR, prior CVA with mild residual R sided weakness, CHF (unknown type), COPD, right hip osteoarthritis, and pre diabetes, resident of [facility] who lives in a private apartment with no assistance, who presented with worsening shortness of breath over the past two days. Associated with mildly productive cough with light green sputum, mild subjective fever and measured fever to 100.7 yesterday at the care facility. She continued to have worsening shortness of breath and was transferred to the ER here for further evaluation. She denies any recent dyspnea on exertion, however this is limited by her right hip pain. She denies any chest pain, palpitations, orthopnea, lower extremity edema, abdominal pain, nausea, vomiting. She denies any constipation or diarrhea. She denies any rash. In the emergency room, patient was tachypneic and mildly tachycardic. She was however, saturating well on room air and was afebrile. Initial CBC was unremarkable, chemistries were also unremarkable with age adjusted D-dimer negative at 413. ProBNP was indeterminate 265. Troponin was negative. Procalcitonin was negative at 0.2. COVID-19 testing was negative as was complete respiratory panel. Chest x-ray did not show any focal infiltrates. Patient was admitted under observation status for COPD exacerbation and possible community-acquired pneumonia. Discharge Providers Provider Date of admission: 06/27/20 10:24 Discharge Date: 06/29/20 Primary care physician: Leo Landa MD Consults: 06/26/20 17:42 Consult to Physical Therapy Evaluate & Treat Comment: Physician Instructions: Evaluate and Treat Discharge provider: Ibeth Goldstein DO Summary Hospital Course Discharge Diagnosis: 1. ESBL E. coli bacteremia and UTI, present on admission. Resolving. 2. Acute COPD exacerbation, present on admission. Resolving. 3. Ruled out community acquired pneumonia. 4. ASCVD with CAD status post PR and previous CVA with residual right-sided weakness, chronic, present on admission. Stable. 5. Chronic diastolic congestive heart failure, present on admission. Stable. 6. Right hip osteoarthritis, chronic, present on admission. Stable. 7. Prediabetes, chronic, present on admission. Stable. Hospital Course: Cira Stafford is a with a past medical histor significant for CAD status post PR, prior CVA with mild residual right-sided weakness, diastolic congestive heart failure, COPD, right hip osteoarthritis, and prediabetes who is a resident of [facility] living [facility] in private apartment without assistance and presented to ED with worsening shortness of breath over the past two days. 1. ESBL E. coli bacteremia and UTI, present on admission. Resolving. -Patient reports history of dysuria with fevers, chills, rigors and bilateral flank pain. -Initial WBC normal at 10.9 and procalcitonin slightly elevated at 0.20. Continued to monitor WBC and procalcitonin closely. -Initial blood cultures positive for ESBL E. coli in 1 of 4 aerobic bottles. Urinalysis was not performed in ED. Continued isolation precautions. -Echocardiogram did not demonstrate any obvious valvular vegetations and patient has no significant clinical findings on heart exam such as murmur. -CT abdomen and pelvis with and without contrast demonstrated moderate circumferential bladder wall thickening consistent with UTI. No findings of hydronephrosis, pyelonephritis, or abscess. Note is made of nonenhancing hyperdense/hemorrhagic cysts involving the superior aspectsof each kidney. -Discontinued ceftriaxone. Started and continued meropenem 1 g every 8 hours to stop on 07/07/2020 to complete 10 days total of antibiotic treatment. -Recommend referral to urology as an outpatient to assess system and nidus for infection as patient has multiple recurrent UTI in the last 6 months. 2. Acute COPD exacerbation, present on admission. Resolving. -Patient presented with increasing shortness of breath, increased sputum production with productive cough and reported fever at assisted living facility. -Continued respiratory therapy evaluation and treatment. Continued DuoNebs every 4 hours while awake and albuterol nebs every 4 hours as needed for shortness of breath or wheezing. Continued Mucinex 1200 mg twice daily. Continued Acapella every 10 times every 1 hour. -Received methylprednisolone 125 mg IV x1 in ED and prednisone 40 mg daily x 4 doses for total of 5 doses of glucocorticoids and received azithromycin 500 mg x 3 doses. 3. Ruled out community acquired pneumonia. -Patient with reported fever of 100.7? F at assisted living facility with source now felt to be ESBL E. coli UTI and bacteremia as above. Patient has productive cough and sputum production due to COPD exacerbation as above. Respiratory panel and COVID-19 negative. Chest x-ray did not demonstrate any acute cardiopulmonary process. -Continued treatment of ESBL E. coli UTI and bacteremia and COPD exacerbation as above. 4. ASCVD with CAD status post PR and previous CVA with residual right-sided weakness, chronic, present on admission. Stable. -Continued home Plavix 75 mg daily and atorvastatin 40 mg daily. 5. Chronic diastolic congestive heart failure, present on admission. Stable. -Does not represent CHF exacerbation. -ProBNP 265. Patient euvolemic on clinical exam. -Chest x-ray did not demonstrate any acute cardiopulmonary process. -Continued home carvedilol 6.25 mg twice daily, hydrochlorothiazide 6.25 mg daily and losartan 100 mg daily. -Echocardiogram relatively unchanged since 2017 and demonstrated normal LV size and function with EF 60-65%, no focal wall motion abnormalities, stage I diastolic dysfunction, RV normal size and function, PA pressures cannot be estimated because of the lack of a measurable TR jet velocity and is no hemodynamically significant valvular abnormalities. -Continued to monitor strict I&Os and daily weights. Net -1L 6. Right hip osteoarthritis, chronic, present on admission. Stable. -Continued home hydrocodone 5-325 every every 12 hours as needed for pain, cyclobenzaprine 5 mg 3 times daily as needed for muscle spasm, and Lyrica 25 mg 3 times daily. Received several doses of oxycodone for more severe pain. -CT abdomen and pelvis with and without contrast demonstrated focal right hip degenerative changes. -Continued physical therapy evaluation and treatment. Discharged home with home health for physical therapy. -Recommend continued outpatient evaluation and possible referral to orthopedic surgery. 7. Prediabetes, chronic, present on admission. Stable. -Hemoglobin A1c 5.7 % in 04/2020. -Held home metformin and restarted at time of discharge. -Continued [facility] blood glucose checks and low-dose correctional scale insulin. -Continued carbohydrate/heart healthy diet. Exam Vital Signs (past 8 hours): - 06/29/20 04:00 06/29/20 04:05 06/29/20 08:00 Temperature 98.6 F 98.9 F Pulse Rate 77 90 Respiratory Rate 12 20 Blood Pressure 144/109 H 155/83 H Pulse Oximetry 97 97 96 06/29/20 09:29 Temperature Pulse Rate 74 Respiratory Rate 22 Blood Pressure Pulse Oximetry 98 Oxygen Delivery Method Room Air Oxygen Flow Rate 0 Narrative Exam Narrative: General: Older female lying in bed and in no acute distress, appears older than stated age, well-developed, well-nourished, appropriately interactive. HEENT: Normocephalic, atraumatic. External ears without defect. Pupils equal, round, and reactive to light. Anicteric sclerae, moist conjunctivae, and no lid lag. Oropharynx free of erythema and cobble stoning with moist mucosa. Neck: Supple with full range of motion. No lymphadenopathy or thyromegaly. Cardiovascular: Regular rate and rhythm without murmurs, rubs, or gallops appreciated Pulmonary: Clear to auscultation bilaterally with end-expiratory wheeze. No crackles or rhonchi. Normal respiratory effort with no use of accessory muscles. Abdomen: Soft, obese, bowel sounds present, nontender, nondistended. Bilateral mild flank tenderness resolved. Extremities: No clubbing, cyanosis, or edema. PICC line in right upper extremity. Skin: Normal temperature, turgor, and texture; no rash, ulcers, or subcutaneous nodules appreciated. Neurological: Cranial nerves grossly intact. Psychiatric: Normal mood and affect. Poor insight. Alert and oriented to person, place, and time. Objective Labs Result Diagrams: 06/29/20 05:50 06/29/20 05:50 Labs: Laboratory Results - last 24 hr 06/28/20 06/29/20 06/29/20 06:40 05:50 05:50 WBC 8.3 RBC 4.10 Hgb 11.6 L Hct 36.2 MCV 88.3 MCH 28.3 MCHC 32.0 RDW 13.0 Plt Count 362 Neut % (Auto) Not Reportable Lymph % (Auto) Not Reportable [place] % (Auto) Not Reportable Eos % (Auto) Not Reportable Baso % (Auto) Not Reportable Lymph # (Auto) Not Reportable [place] # (Auto) Not Reportable Baso # (Auto) Not Reportable Total Counted 100 Seg Neutrophils % 54.0 Lymphocytes % (Manual) 34.0 Atypical Lymphs % 3.0 H Monocytes % (Manual) 9.0 Neutrophils # (Manual) 4482 Nucleated RBCs 2 H RBC Morphology See below Polychromasia 1+ H Sodium 139 Potassium 3.9 Chloride 103 Carbon Dioxide 31 BUN 20 H Creatinine 0.58 Estimated GFR > 60.0 BUN/Creatinine Ratio 34.5 H Glucose 105 H Calcium 9.2 Procalcitonin 0.16 Discharge Plan Discharge Plan Patient Disposition: SNF Transfer to: [facility] Under care of provider: medical staff director Discharge orders & Medications Prescriptions: New guaifenesin [Mucus Relief ER] 600 mg Tablet Extended Release 12hr 1,200 mg PO BID Qty: 10 RF: 0 meropenem-0.9% sodium chloride 1 gram/50 mL Piggyback 1 gm IV Q8H Qty: 27 RF: 0 prednisone 20 mg tablet 40 mg PO DAILY Qty: 2 RF: 0 Continued albuterol sulfate 90 mcg/actuation Hfa Aerosol Inhaler 2 puff Inhalation Q4H PRN (Reason: Shortness Of Breath) RF: 0 clotrimazole 1 % cream 1 applic Topical Q12H PRN (Reason: Rash) RF: 0 metformin 500 mg Tablet 500 mg PO QAM RF: 0 fluticasone propion-salmeterol [Advair Diskus] 250-50 mcg/dose Blister With Device 1 inh INHALATION BID RF: 0 trazodone 50 mg Tablet 25 mg PO BEDTIME PRN (Reason: Insomnia) RF: 0 melatonin 3 mg Tablet 3 mg PO BEDTIME RF: 0 diphenhydramine HCl 25 mg Capsule 25 mg PO Q6H PRN (Reason: itching and allergies) RF: 0 omeprazole 20 mg Capsule,Delayed Release(Dr/Ec) 20 mg PO QAM RF: 0 hydroxyzine HCl 25 mg Tablet 25 mg PO TID PRN (Reason: Anxiety) RF: 0 hydroxyzine HCl 25 mg Tablet 50 mg PO TID RF: 0 losartan 100 mg Tablet 100 mg PO QAM RF: 0 sertraline 50 mg Tablet 50 mg PO QAM RF: 0 ipratropium bromide 17 mcg/actuation Hfa Aerosol Inhaler 2 puff INHALATION QID RF: 0 hydrochlorothiazide 12.5 mg Tablet 6.25 mg PO QAM RF: 0 Flonase Sensimist 27.5 mcg/actuation [place],Suspension 2 spray INTRANASAL BID RF: 0 Zyrtec 10 mg Capsule 10 mg PO DAILY RF: 0 atorvastatin 40 mg Tablet 40 mg PO BEDTIME RF: 0 clopidogrel 75 mg Tablet 75 mg PO DAILY RF: 0 hydrocodone-acetaminophen [[place]] 5-325 mg Tablet 1 tab PO Q12HR PRN (Reason: Pain, Severe) Qty: 10 RF: 0 cyclobenzaprine 5 mg Tablet 5 mg PO TID PRN (Reason: muscle spasms) Qty: 10 RF: 0 pregabalin 25 mg Capsule 25 mg PO TID Qty: 10 RF: 0 carvedilol 12.5 mg tablet 12.5 mg PO BID RF: 0 albuterol sulfate 2.5 mg /3 mL (0.083 %) Solution For Nebulization 2.5 mg inhalation Q4H PRN (Reason: Wheezing) RF: 0 acetaminophen [Acetaminophen Extra Strength] 500 mg Tablet 500 mg PO Q4HR RF: 0 Discontinued hydrocodone-acetaminophen [[place]] 5-325 mg Tablet 1 tab PO BID PRN (Reason: Pain, Severe) RF: 0 Follow up/Referrals: Leo Landa MD [Primary Care Provider] - 1 Week ([facility] Discharge Health Status Multidrug resistant organism: Other Diet/Activity/Treatments Diet: Low-fat, Low-sodium and Low-cholesterol Activity: Activity as tolerated with FWW and physical and occupational therapy [facility] Rehab type: Physical therapy Visit Report/Discharge Packet Instructions: DI for Chronic Obstructive Pulmonary Disease, DI for Urinary Tract Infection (UTI), Peripherally Inserted Central Catheter, DI for Extended Spectrum Beta-Lactamase Infection Discharge Data Primary Care Provider: Leo Landa Quality VTE Deep Vein Thrombosis/Pulmonary Embolism Present on Admission: No
--- NOTE | 2020-06-29 10:22 | PC.NURSE ---
Addendum entered by Christiana Mcclendon R.N. 06/29/20 14:58: Pt left unit at 1442 via wheelchair in no distress with [facility] transport. Pt did express irritation for not having her belongings packed prior to transport arriving, was abrupt with another RN assisting with discharge. Pt had all her belongings upon discharge. Addendum entered by Christiana Mcclendon R.N. 06/29/20 13:41: Pt now has PICC to [facility], flushes easily with brisk blood return. Scheduled IV antibiotic given slightly late due to needing IV access. At 1335, Report called to [facility] to [facility] to give report. No further voiced concerns. Original Note: Day [facility]- Coronavirus-19 swab sent to lab at 1010 for rule out prior to SNF discharge today. Message left for DI RN at 1000 to be made aware of PICC line placement also prior to discharge to SNF today. Pt reports chronic right hip pain 8/10 this morning, PRN Oxycodone 5mg given at 0810 with PRN Flexeril. Upon reassessment pain decreased to 5/10. No other voiced concerns. Pt aware of her discharge to [facility] later today.
--- NOTE | 2020-06-29 10:55 | CM.DPC ---
DCP cont: Faxed signed med list and PASRR to [facility] at fax # [phone]. Fax confirmations scanned in. Hilda Arenas, [facility] Furniture Designer
[2020-06-29] MEDS: predniSONE 20 MG TABLET 40 MG PO (11:32)
[2020-06-29 12:16] LABS: COVID19 -Nasal RAPID Negative (Negative)
--- NOTE | 2020-06-29 12:28 | DI.RAD.S_ITS ---
PROCEDURE: XR CHEST FOR PICC 1V INDICATIONS: new PICC line placement confirmation COMPARISON: [facility], [place], XR CHEST 1V, 06/26/2020, 9:47. [facility], [place], XR CHEST 1V, 01/30/2020, 19:40. FINDINGS: PICC was placed by the intravenous therapy team from the right side. Fluoroscopic spot film demonstrates the tip of PICC projecting to the area of distal SVC. IMPRESSION: Tip of PICC projects to the area of the distal SVC. Dictated by: Teo Franco M.D. on 06/29/2020 at 12:50 Approved by: Teo Franco M.D. on 06/29/2020 at 12:51
[2020-06-29] MEDS: INSULIN ASPART 100 UNIT/ML INSULN PEN SUBCUT (13:00)
--- NOTE | 2020-06-29 14:57 | CM.DPNOTE ---
DC Note Patient ready for DC today and [facility] accepts; patient's PIERCE will cover patient's IV Meropenem, prescribed for approx 9 days. Patient remains agreeable to plan, she asks this CHAMBER MAGISTRATE today- can I have a walker covered by my [facility] insurance? (Christiana walker). Patient explains she has been at [facility] since October 2019 and has asked staff at [facility] but not sure if anything has been completed ? Asked patient if she had a Chlorine Plant Operator through her [facility]? Patient states RODOLFO Foster, completed her initial eval from home that was submitted to [facility] but she hasn't spoken w/him since that time. Requested that Hilda, Neurosurgery Research Director, assist in coordinating DC today and she kindly agreed. Updated April at [facility] of COVID Neg status, PICC placement, and transport arranged for 1430 w/c p/u, FRANKLYN Villeda updated and number for N2N given. Then placed call to [facility] main P# [phone]; was transferred two times and was not able to get a hold of TIMOTHY Foster for someone (name?) requesting input about two things- How to get patient a managed PIERCE plan, also can patient get a walker covered ? Then placed call to MONICA Heath at [facility], had to leave detailed message outlining above questions and updating on patient's dispo. P: DC to [facility] via w/c today, for approx 9 days of continued IV abx. CHARLY Laura
== END 2020-06-29 14:42 | DRG 191 ==
LOC: ED 12:27 → AC 12:29
PROVIDERS: Internal Medicine; Admitting Provider Internal Medicine; Emergency Provider Emergency Medicine; PCP Specialist; Visit Provider Internal Medicine
DX: J44.1 Chronic obstructive pulmonary disease with (acute) exacerbation (principal); I69.951 Hemiplegia and hemiparesis following unspecified cerebrovascular disease affecting right dominant side; Z68.41 Body mass index [BMI] 40.0-44.9, adult; R78.81 Bacteremia; N39.0 Urinary tract infection, site not specified; I50.32 Chronic diastolic (congestive) heart failure; E66.9 Obesity, unspecified; M16.11 Unilateral primary osteoarthritis, right hip; B96.29 Other Escherichia coli [E. coli] as the cause of diseases classified elsewhere; I25.10 Atherosclerotic heart disease of native coronary artery without angina pectoris; F41.9 Anxiety disorder, unspecified; Z87.891 Personal history of nicotine dependence; R73.03 Prediabetes; Z79.84 Long term (current) use of oral hypoglycemic drugs; Z11.59 Encounter for screening for other viral diseases
CPT/HCPCS: 36415; 36569; 71045; 74178; 80048; 80053; 80076; 81001; 82550; 82728; 82962; 83605; 83615; 83735; 83880; 84145; 84484; 85025; 85379; 86140; 87040; 87150; 87186; 87205; 87633; 87635; 93005; 93306; 94640; 94667; 94760; 94762; 96365; 96367; 96375; 97116; 97161; 99285; G0378; A9270; J0696; J1650; J2930; J7613; Q9967

== ENCOUNTER → 2020-07-04 13:31 | Outpatient (ROUT) | payer MEDICAID, SELFPAY ==
[2020-06-26 13:20] VITALS: BMI 40.8
[2020-07-04 14:25] LABS: Clostridium Difficile Tox PCR Negative for C. diff
== END ==
PROVIDERS: PCP Specialist; Visit Provider Nurse Practitioner
DX: A04.72 Enterocolitis due to Clostridium difficile, not specified as recurrent (principal); R19.5 Other fecal abnormalities
CPT/HCPCS: 87493

== ENCOUNTER 2020-07-19 19:15 | Emergency (ER) | payer MEDICAID, SELFPAY ==
[2020-06-26 13:20] VITALS: BMI 40.8
[2020-07-19] VITALS (8 sets, daily range): BP systolic 138–168; BP diastolic 66–84; PULSE 84–88; RESP 18–20; TEMP 36.6; O2SAT 96–98
--- NOTE | 2020-07-19 20:21 | DI.RAD.S_ITS ---
PROCEDURE: XR CHEST 1V INDICATIONS: SOB TECHNIQUE: One view of the chest was acquired. COMPARISON: [facility], CR, XR CHEST FOR PICC 1V, 06/29/2020, 12:31. FINDINGS: Surgical changes and devices: None. Lungs and pleura: Lungs are clear. No pleural effusions or pneumothorax. Mediastinum: Mediastinal contours appear normal. Heart size is normal. Bones and chest wall: No suspicious bony lesions. Overlying soft tissues appear unremarkable. IMPRESSION: No evidence acute pulmonary process. Dictated by: Sidney Linton M.D. on 07/19/2020 at 21:07 Approved by: Sidney Linton M.D. on 07/19/2020 at 21:07
--- NOTE | 2020-07-19 20:23 | ED.GENADULT ---
HPI - General Adult General Chief complaint: Urogenital-Female Stated complaint: feeling sick Time Seen by Provider: 07/19/20 19:26 Source: patient and EMS Mode of arrival: EMS Limitations: no limitations History of Present Illness HPI narrative: 59-year-old female with a history of COPD and also chronic report urinary tract infections here for evaluation of feeling sick. She also feels like that she is wheezing. She would did receive some albuterol from the nursing facility where she lives prior to being transferred which he states only helped her symptoms slightly. She also feels feverish. Also has dysuria and frequency. No chest pain. No recent travel. Not currently on any antibiotics. Two weeks ago was diagnosed with pneumonia. Related Data Home Medications Medication Instructions Recorded Confirmed albuterol sulfate 2 puff INHALATION Q4H PRN 04/29/18 06/26/20 clotrimazole 1 applic TOPICAL Q12H PRN 04/29/18 06/26/20 acetaminophen [Acetaminophen Extra 500 mg PO Q4HR 12/07/19 06/26/20 Strength] albuterol sulfate 2.5 mg INHALATION Q4H PRN 12/07/19 06/26/20 carvedilol 12.5 mg PO BID 12/07/19 06/26/20 Flonase Sensimist 2 spray INTRANASAL BID 06/26/20 06/26/20 Zyrtec 10 mg PO DAILY 06/26/20 06/26/20 diphenhydramine HCl 25 mg PO Q6H PRN 06/26/20 06/26/20 fluticasone propion-salmeterol 1 inh INHALATION BID 06/26/20 06/26/20 [Advair Diskus] hydrochlorothiazide 6.25 mg PO QAM 06/26/20 06/26/20 hydroxyzine HCl 25 mg PO TID PRN 06/26/20 06/26/20 hydroxyzine HCl 50 mg PO TID 06/26/20 06/26/20 ipratropium bromide 2 puff INHALATION QID 06/26/20 06/26/20 losartan 100 mg PO QAM 06/26/20 06/26/20 melatonin 3 mg PO BEDTIME 06/26/20 06/26/20 metformin 500 mg PO QAM 06/26/20 06/26/20 omeprazole 20 mg PO QAM 06/26/20 06/26/20 sertraline 50 mg PO QAM 06/26/20 06/26/20 trazodone 25 mg PO BEDTIME PRN 06/26/20 06/26/20 atorvastatin 40 mg PO BEDTIME 06/29/20 06/29/20 clopidogrel 75 mg PO DAILY 06/29/20 06/29/20 Previous Rx's Medication Instructions Recorded cyclobenzaprine 5 mg PO TID PRN #10 tab 06/29/20 guaifenesin [Mucus Relief ER] 1,200 mg PO BID #10 tab 06/29/20 hydrocodone-acetaminophen [Veneta] 1 tab PO Q12HR PRN #10 tab 06/29/20 meropenem-0.9% sodium chloride 1 gm IV Q8H #27 ea 06/29/20 prednisone 40 mg PO DAILY #2 tab 06/29/20 pregabalin 25 mg PO TID #10 cap 06/29/20 ciprofloxacin HCl 250 mg PO BID 3 Days #6 tab 07/20/20 ciprofloxacin HCl 250 mg PO BID 3 Days #6 tab 07/20/20 prednisone 40 mg PO DAILY 4 Days #8 tab 07/20/20 prednisone 40 mg PO DAILY 4 Days #8 tab 07/20/20 Allergies Allergy/AdvReac Type Severity Reaction Status Date / Time aspirin [ASPIRIN] Allergy Unknown Verified 06/26/20 09:12 buprenorphine [From Suboxone] Allergy Unknown Verified 06/26/20 12:15 ibuprofen [IBUPROFEN] Allergy Unknown Verified 06/26/20 09:12 ketorolac [From TORADOL] Allergy Unknown Verified 06/26/20 09:12 methadone Allergy Unknown Verified 06/26/20 12:15 naloxone [From Suboxone] Allergy Unknown Verified 06/26/20 12:15 NSAIDS (Non-Steroidal Allergy Unknown Verified 06/26/20 12:15 Anti-Inflamma tramadol [TRAMADOL] Allergy Unknown Verified 06/26/20 09:12 Review of Systems Constitutional Constitutional: Reports fatigue and Reports fever(s) Cardiovascular Cardiovascular: Reports chest pain and Reports dyspnea Respiratory Respiratory: Reports cough and Reports dyspnea Gastrointestinal Gastrointestinal: Denies abdominal pain and Denies nausea Genitourinary Genitourinary: Reports dysuria Genitourinary: Reports dysuria Musculoskeletal Musculoskeletal: Denies arthralgias and Denies myalgias Integumentary/Breasts Skin/Breast: Denies rash Neurologic Neurologic: Denies behavioral changes Psychiatric Psychiatric: Denies behavioral changes Endocrine Endocrine: Reports fatigue Hematologic/Lymphatic Hematologic/Lymphatic: Denies easy bleeding and Denies easy bruising Patient History Medical History Anxiety (Acute) COPD (chronic obstructive pulmonary disease) (Acute) Coronary artery disease (Acute) Other chronic pain (Acute) Pain in right hip (Acute) Prediabetes (Acute) Stroke (Acute) Tinea pedis (Acute) Surgical History History of bilateral knee replacement (Acute) Social History household members: caregiver Smoking Status: Former smoker Smoking Status: Former smoker alcohol intake frequency: holidays/special occasions only Substance Use Type: does not use Exam Initial Vital Signs Initial Vital Signs: Vital Signs Temperature 98 F 07/19/20 19:25 Pulse Rate 87 07/19/20 19:25 Respiratory Rate 18 07/19/20 19:25 Blood Pressure 138/70 07/19/20 19:25 Pulse Oximetry 98 07/19/20 19:25 Const General: cooperative and comfortable Limitations: mental status not altered HENMT Head: normal to inspection and normocephalic Resp Effort & Inspection: cough and not labored Auscultation: rhonchi and wheezes Cardio Rate: regular rate Rhythm: regular rhythm GI Inspection: non-distended Palpation: soft Skin Lesions: no lesions Rashes: no rashes Neuro General: patient alert and patient awake Cognition: normal cognition Extrem General: normal to inspection and capillary refill normal Psych Appearance: grossly normal and well kempt Course Orders Ordered: ED Orders 07/19/20 22:50 Urine Culture Stat Urine Microscopic Stat Discontinued Medications Hydrocodone Bitart/Acetaminophen (Veneta 5/325) 1 tab PO NOW ONE Stop: 07/19/20 23:04 Last Admin: 07/19/20 23:08 Dose: 1 tab Documented by: DAVID Albuterol (Ventolin) 2.5 mg INH NOW ONE Stop: 07/19/20 20:43 Last Admin: 07/19/20 21:02 Dose: Not Given Documented by: YESENIA Albuterol (Ventolin Hfa (Vent/Covid R/O)) 2 puff INH NOW ONE Stop: 07/19/20 21:01 Last Admin: 07/19/20 21:01 Dose: 2 puff Documented by: YESENIA Albuterol/Ipratropium (Combivent Respimat) 2 puff INH NOW ONE Stop: 07/19/20 20:21 Last Admin: 07/19/20 21:44 Dose: Not Given Documented by: YESENIA Ciprofloxacin (Cipro) 500 mg PO NOW ONE Stop: 07/19/20 23:26 Last Admin: 07/19/20 23:41 Dose: 500 mg Documented by: KACEY Methylprednisolone (Solu-Medrol 125 Mg Vial) 125 mg IV NOW ONE Stop: 07/19/20 23:26 Last Admin: 07/19/20 23:41 Dose: 125 mg Documented by: KACEY Vital Signs Vital signs: Vital Signs - 8 hr 07/19/20 21:45 07/19/20 22:51 07/19/20 23:48 Pulse Rate 86 84 Respiratory Rate 18 20 Blood Pressure 154/66 H 160/74 H Pulse Oximetry 96 98 97 07/20/20 00:59 Pulse Rate 88 Respiratory Rate 20 Blood Pressure 166/76 H Pulse Oximetry 97 Medical Decision Making Lab Data Lab results reviewed: Yes I reviewed the patient's lab results. Result diagrams: 07/19/20 19:47 07/19/20 19:47 Labs: Lab Results 07/19/20 07/19/20 07/19/20 Range/Units 19:47 19:47 19:47 WBC 6.4 (4.5-11.0) X10^3/uL RBC 4.11 (4.0-5.2) X10^6/uL Hgb 11.7 L (12.0-16.0) g/dL Hct 36.0 (36-46) % MCV 87.7 (80-100) fL MCH 28.4 (26-34) PG MCHC 32.4 (30-36) % RDW 13.2 (11.6-14.8) % Plt Count 335 (150-400) X10^3/uL Neut % (Auto) 56.4 (50-75) % Lymph % (Auto) 30.9 (25-40) % [place] % (Auto) 8.1 (3-14) % Eos % (Auto) 3.5 (2-4) % Baso % (Auto) 1.1 (0-2) % Neut # (Auto) 3600 (6840-7265) /uL Lymph # (Auto) 2000 (2780-2486) /uL [place] # (Auto) 500 (0-900) /uL Eos # (Auto) 200 (0-450) /uL Baso # (Auto) 100 (0-100) /uL Sodium 138 (137-145) mmol/L Potassium 3.9 (3.4-5.1) mmol/L Chloride 102 (98-107) mmol/L Carbon Dioxide 31 (22-32) mmol/L BUN 8 (7-17) mg/dL Creatinine 0.62 (0.52-1.04) mg/dL Estimated GFR > 60.0 (>60) mL/min BUN/Creatinine Ratio 12.9 (6-22) Glucose 119 H (70-100) mg/dL Lactate 1.0 (0.7-2.1) mmol/L Calcium 8.9 (8.4-10.2) mg/dL Procalcitonin (<0.5) ng/mL Urine RBC (0-5/HPF) Urine WBC (0-5/HPF) Ur Squamous Epith Cells (0-5/HPF) Urine Bacteria (None) Ur Culture Indicated? COVID-19 PCR (Negative) 07/19/20 07/19/20 07/19/20 Range/Units 20:11 22:50 23:59 WBC (4.5-11.0) X10^3/uL RBC (4.0-5.2) X10^6/uL Hgb (12.0-16.0) g/dL Hct (36-46) % MCV (80-100) fL MCH (26-34) PG MCHC (30-36) % RDW (11.6-14.8) % Plt Count (150-400) X10^3/uL Neut % (Auto) (50-75) % Lymph % (Auto) (25-40) % [place] % (Auto) (3-14) % Eos % (Auto) (2-4) % Baso % (Auto) (0-2) % Neut # (Auto) (5652-4021) /uL Lymph # (Auto) (2377-9344) /uL [place] # (Auto) (0-900) /uL Eos # (Auto) (0-450) /uL Baso # (Auto) (0-100) /uL Sodium (137-145) mmol/L Potassium (3.4-5.1) mmol/L Chloride (98-107) mmol/L Carbon Dioxide (22-32) mmol/L BUN (7-17) mg/dL Creatinine (0.52-1.04) mg/dL Estimated GFR (>60) mL/min BUN/Creatinine Ratio (6-22) Glucose (70-100) mg/dL Lactate (0.7-2.1) mmol/L Calcium (8.4-10.2) mg/dL Procalcitonin < 0.05 (<0.5) ng/mL Urine RBC None seen (0-5/HPF) Urine WBC 5-10/hpf H (0-5/HPF) Ur Squamous Epith Cells 1-5 /hpf (0-5/HPF) Urine Bacteria Few (2-10) H (None) Ur Culture Indicated? Specimen cultured COVID-19 PCR Negative (Negative) Urine Dip Bedside Urine Glucose Negative Bedside Urine Bilirubin + 1 Bedside Urine Ketone - Negative Urine Specific [place] 1.015 Bedside Urine Occult Blood - Negative Bedside Urine pH 6.0 Bedside Urine Protein - Negative Bedside Urine Urobilinogen - Negative Bedside Urine Nitrite - Negative Bedside Urine Leukocytes ++ 125 Esterase Point of care testing: Urine Dip Bedside Urine Glucose Negative Bedside Urine Bilirubin + 1 Bedside Urine Ketone - Negative Urine Specific [place] 1.015 Bedside Urine Occult Blood - Negative Bedside Urine pH 6.0 Bedside Urine Protein - Negative Bedside Urine Urobilinogen - Negative Bedside Urine Nitrite - Negative Bedside Urine Leukocytes ++ 125 Esterase Imaging Data Chest x-ray: Radiologist's Impression: [address] [address] XRay Report Signed Patient: Cira Stafford KMR#: [id number] : 1960Acct:[id number] Age/Sex: 59 / FDate of Service: 07/19/20 Loc: ED Accession Number: [id number] Procedure: XR chest 1V Ordering Provider: Nacho Santizo D.O. PROCEDURE: XR CHEST 1V INDICATIONS: SOB TECHNIQUE: One view of the chest was acquired. COMPARISON: [facility], CR, XR CHEST FOR PICC 1V, 06/29/2020, 12:31. FINDINGS: Surgical changes and devices: None. Lungs and pleura: Lungs are clear. No pleural effusions or pneumothorax. Mediastinum: Mediastinal contours appear normal. Heart size is normal. Bones and chest wall: No suspicious bony lesions. Overlying soft tissues appear unremarkable. IMPRESSION: No evidence acute pulmonary process. Dictated by: Sidney Linton M.D. on 07/19/2020 at 21:07 Approved by: Sidney Linton M.D. on 07/19/2020 at 21:07 ECG Data Attestation: I personally reviewed and interpreted this ECG as follows: Prior ECG tracings: not available for review Interpretation: Sinus rhythm Ventricular rate 88 Normal axis Normal QRS Normal QTC No ST T wave changes MDM Narrative Medical decision making narrative: Coronavirus negative. Chest x-ray shows no signs of pneumonia. Urinalysis is concerning for UTI. Review of the patient's prior urine culture shows E coli with sensitivity to Cipro. Was given a dose of that here in the ER. He is also given several doses of albuterol by MDI and steroids. This did improve her respiratory status as well. Will send home with antibiotics for the urinary tract infection. She was given return precautions and follow-up instructions. She expressed understanding and agreement plan. Discharge Plan Departure Patient Disposition: Home Clinical Impression: COPD with exacerbation UTI (urinary tract infection) Qualifiers: Urinary tract infection type: site unspecified Hematuria presence: with hematuria Qualified Code(s): N39.0 - Urinary tract infection, site not specified Discharge Date/Time: 07/20/20 01:30 Instructions: Chronic Obstructive Pulmonary Disease (Alternative Therapy), DI for Urinary Tract Infection (UTI) Activity Restrictions/Additional Instructions: Continue all of your medications as directed. Start taking the steroids and the antibiotics as directed. Your COVID-19 test today was negative. Contact your primary provider for follow-up. Return to the emergency department for any new or worsening symptoms. Your prescriptions were electronically transmitted to [facility]. Prescriptions: New prednisone 20 mg tablet 40 mg PO DAILY 4 Days Qty: 8 RF: 0 ciprofloxacin HCl 250 mg tablet 250 mg PO BID 3 Days Qty: 6 RF: 0 prednisone 20 mg tablet 40 mg PO DAILY 4 Days Qty: 8 RF: 0 ciprofloxacin HCl 250 mg tablet 250 mg PO BID 3 Days Qty: 6 RF: 0 No Action albuterol sulfate 90 mcg/actuation Hfa Aerosol Inhaler 2 puff Inhalation Q4H PRN (Reason: Shortness Of Breath) RF: 0 clotrimazole 1 % cream 1 applic Topical Q12H PRN (Reason: Rash) RF: 0 metformin 500 mg Tablet 500 mg PO QAM RF: 0 fluticasone propion-salmeterol [Advair Diskus] 250-50 mcg/dose Blister With Device 1 inh INHALATION BID RF: 0 trazodone 50 mg Tablet 25 mg PO BEDTIME PRN (Reason: Insomnia) RF: 0 melatonin 3 mg Tablet 3 mg PO BEDTIME RF: 0 diphenhydramine HCl 25 mg Capsule 25 mg PO Q6H PRN (Reason: itching and allergies) RF: 0 omeprazole 20 mg Capsule,Delayed Release(Dr/Ec) 20 mg PO QAM RF: 0 hydroxyzine HCl 25 mg Tablet 25 mg PO TID PRN (Reason: Anxiety) RF: 0 hydroxyzine HCl 25 mg Tablet 50 mg PO TID RF: 0 losartan 100 mg Tablet 100 mg PO QAM RF: 0 sertraline 50 mg Tablet 50 mg PO QAM RF: 0 ipratropium bromide 17 mcg/actuation Hfa Aerosol Inhaler 2 puff INHALATION QID RF: 0 hydrochlorothiazide 12.5 mg Tablet 6.25 mg PO QAM RF: 0 Flonase Sensimist 27.5 mcg/actuation [place],Suspension 2 spray INTRANASAL BID RF: 0 Zyrtec 10 mg Capsule 10 mg PO DAILY RF: 0 atorvastatin 40 mg Tablet 40 mg PO BEDTIME RF: 0 clopidogrel 75 mg Tablet 75 mg PO DAILY RF: 0 guaifenesin [Mucus Relief ER] 600 mg Tablet Extended Release 12hr 1,200 mg PO BID Qty: 10 RF: 0 meropenem-0.9% sodium chloride 1 gram/50 mL Piggyback 1 gm IV Q8H Qty: 27 RF: 0 hydrocodone-acetaminophen [Veneta] 5-325 mg Tablet 1 tab PO Q12HR PRN (Reason: Pain, Severe) Qty: 10 RF: 0 prednisone 20 mg tablet 40 mg PO DAILY Qty: 2 RF: 0 cyclobenzaprine 5 mg Tablet 5 mg PO TID PRN (Reason: muscle spasms) Qty: 10 RF: 0 pregabalin 25 mg Capsule 25 mg PO TID Qty: 10 RF: 0 carvedilol 12.5 mg tablet 12.5 mg PO BID RF: 0 albuterol sulfate 2.5 mg /3 mL (0.083 %) Solution For Nebulization 2.5 mg inhalation Q4H PRN (Reason: Wheezing) RF: 0 acetaminophen [Acetaminophen Extra Strength] 500 mg Tablet 500 mg PO Q4HR RF: 0
[2020-07-19 20:36] LABS: Add Manual Diff / Slide Review NO; Basophils Absolute Auto 100 /uL (0-100); Basophils Percent Auto 1.1 % (0-2); Eosinophils Absolute Auto 200 /uL (0-450); Eosinophils Percent Auto 3.5 % (2-4); Hemoglobin 11.7 g/dL (12.0-16.0); Lymphocytes Absolute Auto 2000 /uL (1100-4500); Lymphocytes Percent Auto 30.9 % (25-40); Mean Corpuscular HGB Conc 32.4 % (30-36); Mean Corpuscular Hemoglobin 28.4 PG (26-34); Mean Corpuscular Volume 87.7 fL (80-100); Monocytes Absolute Auto 500 /uL (0-900); Monocytes Percent Auto 8.1 % (3-14); Neutrophils Absolute Auto 3600 /uL (1500-7000); Neutrophils Percent Auto 56.4 % (50-75); Platelet Count 335 X10^3/uL (150-400); Red Blood Cell Count 4.11 X10^6/uL (4.0-5.2); Red Cell Distribution Width 13.2 % (11.6-14.8); White Blood Cell Count 6.4 X10^3/uL (4.5-11.0)
[2020-07-19 20:42] LABS: BUN Creatinine Ratio 12.9 (6-22); Blood Urea Nitrogen 8 mg/dL (7-17); Calcium 8.9 mg/dL (8.4-10.2); Carbon Dioxide 31 mmol/L (22-32); Chloride 102 mmol/L (98-107); Estimated Glomerular Filt Rate > 60.0 mL/min (>60); Glucose 119 mg/dL (70-100); HEMOLYSIS < 15 (0-50); Potassium 3.9 mmol/L (3.4-5.1); Sodium 138 mmol/L (137-145)
[2020-07-19 20:59] LABS: Procalcitonin < 0.05 ng/mL (<0.5)
[2020-07-19] MEDS: ALBUTEROL HFA 200 PUFF/18 GM INH (COVID POS/VENT PTS) INH (21:01)
[2020-07-19 23:01] LABS: RBC Urine None Seen (0-5/HPF)
[2020-07-19] MEDS: HYDROCODONE/ACET 5/325 TABLET 1 TAB PO (23:08)
[2020-07-19 23:19] LABS: Bacteria Urine Few (2-10); Squamous Epithelial Cell Urine 1-5 /HPF (0-5/HPF); WBC Urine 5-10/HPF (0-5/HPF)
[2020-07-19 23:20] LABS: Culture Indicated Urine Specimen Cultured
[2020-07-19] MEDS: CIPROFLOXACIN 500 MG TABLET PO (23:41)
[2020-07-19] MEDS: methylPREDNISolone 125 MG/2 ML VIAL IV (23:41)
[2020-07-20 00:59] VITALS: BP 166/76; PULSE 88; RESP 20; O2SAT 97
[2020-07-20 01:06] LABS: COVID19 -Nasal RAPID Negative (Negative)
== END 2020-07-20 01:30 | disposition home or self-care (01) ==
PROVIDERS: Emergency Provider Emergency Medicine
DX: J44.1 Chronic obstructive pulmonary disease with (acute) exacerbation (principal); N39.0 Urinary tract infection, site not specified; R30.0 Dysuria; R07.9 Chest pain, unspecified
CPT/HCPCS: 36415; 71045; 80048; 81003; 81015; 83605; 84145; 85025; 87040; 87086; 87635; 93005; 93010; 94640; 96374; 99284; J2930

== ENCOUNTER → 2022-01-27 10:05 | Outpatient (CLI) | payer MEDICAID, SELFPAY ==
[2020-06-26 13:20] VITALS: BMI 40.8
[2022-01-27 12:14] LABS: Add Manual Diff / Slide Review NO; Basophils Absolute Auto 100 /uL (0-100); Eosinophils Absolute Auto 100 /uL (0-450); Eosinophils Percent Auto 1.8 % (2-4); Hematocrit 39.5 % (36-46); Lymphocytes Absolute Auto 1600 /uL (1100-4500); Mean Corpuscular Hemoglobin 28.3 PG (26-34); Mean Corpuscular Volume 85.8 fL (80-100); Monocytes Absolute Auto 500 /uL (0-900); Monocytes Percent Auto 6.4 % (3-14); Neutrophils Absolute Auto 5000 /uL (1500-7000); Neutrophils Percent Auto 68.8 % (50-75); Platelet Count 418 X10^3/uL (150-400); Red Cell Distribution Width 14.7 % (11.6-14.8); White Blood Cell Count 7.2 X10^3/uL (4.5-11.0)
[2022-01-27 12:16] LABS: Appearance Urine UA CLEAR; Bilirubin Urine UA NEGATIVE (NEGATIVE); Color Urine UA YELLOW; Glucose Urine UA TRACE g/dL (Negative); Ketones Urine UA NEGATIVE (NEGATIVE); Leukocyte Esterase Urine UA TRACE (NEGATIVE); Nitrite Urine UA NEGATIVE (Negative); Occult Blood Urine UA NEGATIVE (Negative); Protein Urine UA TRACE (Negative); Urobilinogen Urine UA 0.2 E.U./dL (0.2)
[2022-01-27 12:43] LABS: Bacteria Urine None Seen; Culture Indicated Urine Cult Not Indicated; RBC Urine None Seen (0-5/HPF); Squamous Epithelial Cell Urine 5-10 /HPF (0-5/HPF); WBC Urine 5-10/HPF (0-5/HPF)
[2022-01-27 13:34] LABS: BUN Creatinine Ratio 21.7 (6-22); Blood Urea Nitrogen 15 mg/dL (7-17); Calcium 9.3 mg/dL (8.4-10.2); Carbon Dioxide 29 mmol/L (22-32); Chloride 104 mmol/L (98-107); Estimated Glomerular Filt Rate > 60.0 mL/min (>60); Glucose 113 mg/dL (80-110); HEMOLYSIS < 15 (0-50); Potassium 3.8 mmol/L (3.4-5.1); Sodium 140 mmol/L (137-145)
== END ==
PROVIDERS: Referring Provider Orthopaedic Surgery; Visit Provider Orthopaedic Surgery
DX: N39.0 Urinary tract infection, site not specified (principal); R73.9 Hyperglycemia, unspecified; Z01.812 Encounter for preprocedural laboratory examination; Z01.818 Encounter for other preprocedural examination
CPT/HCPCS: 36415; 80048; 81001; 83036; 85025; 93005

== ENCOUNTER → 2022-02-17 11:14 | Outpatient (CLI) | payer MEDICAID, SELFPAY ==
[2020-06-26 13:20] VITALS: BMI 40.8
[2022-02-17 16:49] LABS: COVID19 -Nasal RAPID Negative (Negative)
== END ==
PROVIDERS: Visit Provider Nurse Practitioner Family
DX: Z20.822 Contact with and (suspected) exposure to COVID-19 (principal)
CPT/HCPCS: 87635; C9803

== ENCOUNTER → 2022-04-21 10:47 | Outpatient (CLI) | payer MEDICAID, SELFPAY ==
[2020-06-26 13:20] VITALS: BMI 40.8
[2022-04-21 13:02] LABS: COVID19 -Nasal RAPID Negative (Negative)
== END ==
PROVIDERS: PCP Family Medicine; Visit Provider Family Medicine Sleep Medicine
DX: Z20.822 Contact with and (suspected) exposure to COVID-19 (principal)
CPT/HCPCS: 87635; C9803

== ENCOUNTER 2022-04-22 10:31 | Day surgery (SDC) | payer MEDICAID, SELFPAY ==
[2020-06-26 13:20] VITALS: BMI 40.8
[2022-04-16 08:23] VITALS: BMI 34.0
[2022-04-22] VITALS (9 sets, daily range): BP systolic 103–152; BP diastolic 49–82; PULSE 72–94; RESP 15–19; TEMP 35.7–36.7; O2SAT 97–100; BMI 32.5
--- NOTE | 2022-04-22 | DI.RAD.S_ITS ---
PROCEDURE: XR PELVIS 1-2V INDICATIONS: INTER-OP TECHNIQUE: 1 view of the lower pelvis acquired. COMPARISON: None. FINDINGS: Bones: Patient is status post right hip arthroplasty, with hardware components in expected positions. The hip joint appears congruent. The visualized bony structures appear intact. Soft tissues: Overlying postoperative changes are noted. No suspicious soft tissue densities. IMPRESSION: Intraoperative study shows right total hip arthroplasty in progress. Dictated by: Leoncio Adair M.D. on 04/22/2022 at 16:17 Approved by: Leoncio Adair M.D. on 04/22/2022 at 16:18
--- NOTE | 2022-04-22 10:22 | DI.RAD.S_ITS ---
PROCEDURE: XR HIP W PEL IF DONE RT 2V INDICATIONS: RIGHT TOTAL HIP TECHNIQUE: AP pelvis and lateral view of the right hip acquired. COMPARISON: [facility], , XR HIP W PEL IF DONE RT 2V, 01/30/2020, 19:40. FINDINGS: Bones: Patient is status post right hip arthroplasty, with hardware components in expected positions. The hip joint appears congruent. The visualized bony structures appear intact. Mild left hip joint degeneration. Degenerative disc and facet disease involves the inferior lumbar spine. Soft tissues: Overlying postoperative changes are noted. No suspicious soft tissue densities. IMPRESSION: Expected immediate postoperative appearance of right hip arthroplasty. Dictated by: Matthew Alonso [facility] Interpreted: Enid Cm MD on 04/22/2022 at 16:53 Approved by: Enid Cm M.D. on 04/22/2022 at 17:28
[2022-04-22] MEDS: ACETAMINOPHEN 325 MG TABLET 975 MG PO (11:48)
[2022-04-22] MEDS: LACTATED RINGERS 1,000 ML 42 ML IV (11:51)
[2022-04-22] MEDS: VANCOMYCIN 1,000 MG/200 ML PIGGYBACK 200 MG IV (13:17)
--- NOTE | 2022-04-22 14:12 | PM.PREOP ---
Pre-operative Note COVID-19 COVID-19 status: Negative Interval Note History & Physical reviewed/Exam performed by Physician: Yes Changes to H&P: No
--- NOTE | 2022-04-22 14:13 | P.HP_ITS ---
History of Present Illness History of Present Illness Date Patient Seen: 04/22/22 Time Patient Seen: 14:13 Chief complaint: severe right hip OA Narrative: She notes incapacitating right hip pain. She has of supportive individual who is available to assist her some. Her medical problems have been stable. See attached H and P Patient History Medical History Anxiety Asthma COPD (chronic obstructive pulmonary disease) Coronary artery disease Depression Drug-seeking behavior Easy bruisability GERD (gastroesophageal reflux disease) Hearing loss Hepatic steatosis HLD (hyperlipidemia) HTN (hypertension) Myocardial infarction Osteoarthritis Other chronic pain Pain in right hip Peptic ulcer disease Prediabetes PTSD (post-traumatic stress disorder) Seizures Stroke (1999) Tinea pedis Surgical History History of bilateral knee replacement History of surgery on wrist Hx of colonoscopy Hx of tonsillectomy Family & Social History Social History: household members none Prior Living Arrangements House Safety & Behavioral: Feels Safe in Current Yes Environment Been Physically Hurt or No Threatened By a Person Suicidal Ideation Description None Suicide Plan Description No Plan Tobacco & Substance use: Tobacco type cigarettes Smoking Status Former smoker alcohol intake never alcohol intake frequency holiday/special occasion Substance Use Type does not use Meds Home Medications and Allergies Home Medications Medication Instructions Recorded Confirmed Type albuterol sulfate 90 mcg/actuation 2 puff INHALATION Q4H PRN 04/29/18 02/10/22 History aerosol inhaler clotrimazole 1 % topical cream 1 applic TOPICAL Q12H PRN 04/29/18 04/22/22 History acetaminophen 500 mg tablet 500 mg PO Q4HR PRN 12/07/19 02/10/22 History (Acetaminophen Extra Strength) albuterol sulfate 2.5 mg INHALATION Q4H PRN 12/07/19 02/10/22 History carvedilol 12.5 mg tablet 25 mg PO BID 12/07/19 04/22/22 History fluticasone furoate 27.5 2 spray INTRANASAL BID 06/26/20 04/22/22 History mcg/actuation nasal spray,suspension (Flonase Sensimist) hydrochlorothiazide 12.5 mg tablet 25 mg PO QAM 06/26/20 04/22/22 History hydroxyzine HCl 25 mg tablet 25 mg PO TID PRN 06/26/20 02/10/22 History losartan 100 mg tablet 100 mg PO QAM 06/26/20 04/22/22 History metformin 500 mg tablet 500 mg PO QAM 06/26/20 04/22/22 History sertraline 50 mg tablet 50 mg PO QAM 06/26/20 04/22/22 History trazodone 50 mg tablet 50 mg PO BEDTIME PRN 06/26/20 04/22/22 History atorvastatin 40 mg tablet 40 mg PO BEDTIME 06/29/20 04/22/22 History clopidogrel 75 mg tablet 75 mg PO DAILY 06/29/20 04/22/22 History cyclobenzaprine 5 mg tablet 5 mg PO TID PRN #10 tab 06/29/20 04/22/22 Rx lidocaine 5 % topical patch 1 patch TOPICAL DAILY PRN 02/10/22 04/22/22 History oxycodone 5 mg tablet 5 mg PO Q6H PRN 02/10/22 04/22/22 History amlodipine 5 mg tablet See Rx Instructions .ROUTE .COMPLEX 04/22/22 04/22/22 History Allergies Allergy/AdvReac Type Severity Reaction Status Date / Time aspirin [ASPIRIN] Allergy Severe Throat Verified 02/10/22 12:08 closes, eye itching, difficulty breathing buprenorphine [From Suboxone] Allergy Severe Throat Verified 02/10/22 12:08 closing, vomiting ibuprofen [IBUPROFEN] Allergy Severe Throat Verified 02/10/22 12:08 closes, eye itching, difficulty breathing ketorolac [From TORADOL] Allergy Severe Throat Verified 02/10/22 12:08 closes, eye itching, difficulty breathing methadone Allergy Severe Hard time Verified 02/10/22 12:08 breathing, my vital signs were dropping naloxone [From Suboxone] Allergy Severe Throat Verified 02/10/22 12:08 closing, vomiting NSAIDS (Non-Steroidal Allergy Severe Throat Verified 02/10/22 12:08 Anti-Inflamma closes, eye itching, difficulty breathing tramadol [TRAMADOL] Allergy Severe Rash, my Verified 02/10/22 12:08 throat was closing Beef Containing Products Allergy Hives Verified 02/10/22 13:12 duloxetine Allergy Rash Verified 02/10/22 13:12 gabapentin AdvReac Gastrointestinal Verified 02/10/22 13:12 Upset Review of Systems Review of Systems Narrative: Negative for chest pain shortness of breath or recent cardiac symptoms Exam Vital Signs (past 8 hours): - 04/22/22 11:33 Temperature 98.1 F Pulse Rate 89 Respiratory Rate 18 Blood Pressure 116/73 Pulse Oximetry 97 Oxygen Delivery Method Room Air Narrative Exam Narrative: HEENT is benign, lungs clear cor regular rate and rhythm, right hip severe pain with range of motion, skin okay, see attached H and P Assessment & Plan Assessment and plan (1) S/P total hip arthroplasty: Status: Acute (2) COPD with exacerbation: Status: Acute (3) Atypical chest pain: Status: Acute (4) Acute exacerbation of chronic obstructive airways disease: Status: Acute (5) Coronary artery disease: Problem details: Per PCP note 12/02/21 Status: Acute (6) Chronic abdominal pain: Status: Acute Plan I have recommended a right total hip arthroplasty. Procedure alternatives risks benefits complications reviewed again. Anticipate she will need to be inpatient due to her multiple medical problems. Plan is for a posterior approach. She likely will need discharge to rehab depending upon how she does with therapy. She has incapacitating right hip pain it is reasonable to proceed with right hip arthroplasty. Time Spent With Patient Critical Care time: I spent a total of [] minutes of critical care time on this patient's care tod ay; this time is exclusive of procedural time.
--- NOTE | 2022-04-22 14:28 | PM.OP.1 ---
Operative Date/Time/Diagnoses Date of procedure: 04/22/22 Time of procedure: 14:29 Pre-op diagnosis: Severe right hip osteoarthritis Post-op diagnosis: same Procedure & Clinicians Procedure: Right total hip arthroplasty posterior approach Same procedure as scheduled: Yes Indications: The patient has had progressively worsening right hip pain with radiographic changes consistent with arthritis. Non-operative management has failed and the patient has requested total hip replacement. The risks, benefits and alternatives to surgery were discussed with the patient prior to proceeding. Risks discussed included, but were not limited to, failure to relieve pain, leg length discrepancy, dislocation, stiffness, infection, nerve damage, deep venous thrombosis, pulmonary embolism, stroke, coma, heart attack, permanent paralysis and , as well as the potential need for eventual revision of the prosthetic. Surgeon: Ileana Workman Gluing Machine Operator: Viet Wells Anesthesia Type: General and Spinal Operative Notes Findings: Severe right hip osteoarthritis, adequate bone, adequate stability Closure Type: primary Specimen(s): none sent Prosthetic devices, grafts, tissues, transplants, or devices: [employer] anthology standard offset size 5, R3 50, +4 oxinium head Applied: drain(s) Estimated Blood Loss (mL): 250 Blood products transfused: none Procedure in detail: The patient was seen in the pre-operative area, where the patient identified the right hip as the operative site and this was marked with my initials. The patient received pre-operative antibiotics and was taken to the operating room and placed on the operative table in the left lateral decubitus position after satisfactory anesthesia. A realtime captioner out was performed. The right leg was prepared from the ankle to the iliac crest with ChloroPrep in the usual fashion and draped through sterile drapes. The hip was approached through an approximately 20 cm incision centered over the greater trochanter and curving gently posteriorly as it went proximally. This was carried sharply to the fascia taiwo, which was divided and retracted with a self retaining retractor. The trochanteric bursa was excised with care being taken to avoid the sciatic nerve, which was identified and protected throughout the case. The short external rotators were incised and the capsulomuscular flap was raised and tagged for later repair. The hip was dislocated, and a femoral neck osteotomy performed approximately 15 mm above the lesser trochanter. Retractors were placed around the femur. The canal was opened with a box cutting osteotome, followed by a T handled reamer and a lateralizing reamer. The chili pepper broach was then used, followed by sequential broaching until there was good stability of the broach in the femur. Retractors were placed to expose the acetabulum. The labrum and central soft tissues were removed. Reaming was performed initially going up in 2 mm increments, then 1 mm increments until good bite was obtained with an odd sized reamer. The cup 1 mm larger than the last reamer was then inserted using the appropriate anteversion guides. A trial neutral liner was placed. The broach was placed in the canal. A trial head and neck were then placed and the hip relocated and checked for leg length and stability. An intraoperative film confirmed the component position and no evidence of fracture. The patient was stable in the position of sleep, of squatting, and could be put through a range of motion with 45 degrees internal rotation without dislocation. At 90 degrees flexion, internal rotation to 70? was possible before dislocation. This was felt to be satisfactory and the appropriate components were opened, and the trials were removed. I did a trial with a -3, +0 and a +4. She had much better stability with a +4 and her leg lengths did not appear to be excessively lengthened. The acetabular liner was impacted into position. The final stem was then impacted into the prepared femoral canal. A brief Betadine soak was performed while trialing with head options. The hip was meticulously irrigated with normal saline. Finally the femoral head was impacted onto the stem. The acetabulum was cleared of all material and the hip relocated one final time. The capsulomuscular flap was then repaired to the greater trochanter though an awl hole using the tag sutures. The short external rotators were repaired with a nonabsorbable suture. The fascia taiwo was closed with Vicryl. The subcutaneous layer was closed with barbed sutures and SteriStrips. An prudencio dressing was applied and the patient was taken to recovery having tolerated the procedure well. Complications: none Post-operative Condition: stable Disposition: Acute Care Plan for aftercare: The patient will be maintained on a standard total hip replacement protocol with weight bearing as tolerated and posterior hip precautions. The patient will receive Plavix and sequential compression devices for DVT prophylaxis. The patient will be discharged home when safe for the home environment.
[2022-04-22] MEDS: TRANEXAMIC ACID 1,000 MG VIAL 2000 MG INJ ×2 (14:50→16:19)
[2022-04-22] MEDS: CEFAZOLIN 2 GM/20 ML SYRINGE IV ×2 (14:50→22:30)
--- NOTE | 2022-04-22 15:10 | SUR.OPER ---
Lateral on padded OR bed. Gel axillary roll. Arms secured on padded armboard with pillow supporting top arm. Padded hip positioner braces x4 - anterior and posterior chest and pelvis. Additional gel pad used anterior pelvis. Gel pad under bottom leg from knee to foot and secured with tape over sheet. Directed and approved by surgeon
[2022-04-22] MEDS: BUPIVACAINE LIPOSOME 266 MG/20 ML VIAL INJ (15:21)
[2022-04-22] MEDS: BUPIVACAINE 0.25% W/ EPI 30 ML VIAL 60 ML INJ (15:22)
[2022-04-22] MEDS: EPINEPHrine 1 MG/ML TOP (15:23)
--- NOTE | 2022-04-22 16:55 | SUR.PHASEI ---
report called to Cherrie ESTES. opportunity for questions given. return phone number at time of report [phone]. pt transferring to room 204. pt updated on plan of care and is agreeable.
[2022-04-22] MEDS: LACTATED RINGERS 1,000 ML 125 ML IV (17:58)
--- NOTE | 2022-04-22 18:34 | PC.NURSE ---
Patient is allergic to narcan, it causes her throat to close. aware of situation and this RN called her. States that we can give patient oral pain medications as she states that she feels comfortable with this. Narcan has been d/cd. Patient is complaining of discomfort now. To give her one percocet now for complaints of 9/10 pain. We will watch her closely to make sure she does not become to sedated. We also have the hospitalist close by if they are needed for any interactions with Narcotics. Patients hip dressing is cdi, she is on ivf and her cousin Nathaly will be her support person.
[2022-04-22] MEDS: OXYCODONE/ACETAMINOPHEN 5/325 TABLET 1 TAB PO ×2 (18:41→22:30)
[2022-04-22] MEDS: FLUTICASONE 120 SPRAY/16 GM SPRAY.SUSP NASAL (20:28)
[2022-04-22] MEDS: ATORVASTATIN 20 MG TABLET 40 MG PO (20:29)
[2022-04-22] MEDS: diphenhydrAMINE 50 MG/ML VIAL 25 MG IV (20:29)
[2022-04-22] MEDS: carvediloL 12.5 MG TABLET 25 MG PO (20:29)
[2022-04-22] MEDS: DOCUSATE 100 MG CAPSULE PO (20:30)
[2022-04-23] MEDS: TRAZODONE 50 MG TABLET PO (01:27)
[2022-04-23 02:14] VITALS: BP 115/63; PULSE 85; RESP 18; TEMP 36.2; O2SAT 96
[2022-04-23] MEDS: OXYCODONE/ACETAMINOPHEN 5/325 TABLET 1 TAB PO (04:11)
[2022-04-23] MEDS: LACTATED RINGERS 1,000 ML 125 ML IV (05:27)
[2022-04-23 05:42] LABS: Hematocrit 33.4 % (36-46); Hemoglobin 11.2 g/dL (12.0-16.0)
[2022-04-23] MEDS: CEFAZOLIN 2 GM/20 ML SYRINGE IV (06:38)
[2022-04-23] MEDS: ACETAMINOPHEN 325 MG TABLET 650 MG PO ×2 (06:39→12:18)
[2022-04-23 07:00] VITALS: BP 121/54; PULSE 76; RESP 17; TEMP 36.5; O2SAT 99
[2022-04-23] MEDS: OXYCODONE IR 5 MG TABLET PO (07:34)
--- NOTE | 2022-04-23 07:47 | PM.DS.1 ---
History of Present Illness History of Present Illness Chief complaint: severe right hip OA Discharge Providers Provider Discharge Date: 04/23/22 Primary care physician: Ozzy Lam MD Consults: 02/12/22 08:55 Consult to Anesthesiology Routine Comment: Consulting Provider: Anesthesiologist Reason for consultation: Surgeon requested re: COPD 02/18/22 06:00 Consult to Anesthesiology Routine Comment: Consulting Provider: Anesthesiologist Reason for consultation: Regional block for post operative pain control 04/22/22 10:22 Consult to Anesthesiology Routine Comment: Consulting Provider: Anesthesiologist Reason for consultation: Regional block for post operative pain control 04/22/22 17:02 Consult to Discharge Planning Routine Comment: may need ecf Consult to Physical Therapy Evaluate & Treat Comment: Physician Instructions: post op PAUL protocol Consult to Respiratory Therapy Evaluate & Treat Comment: Physician Instructions: Evaluate and treat Discharge provider: Viet Wells PA-C Exam Vital Signs (past 8 hours): - 04/23/22 02:14 Temperature 97.1 F L Pulse Rate 85 Respiratory Rate 18 Blood Pressure 115/63 Pulse Oximetry 96 Oxygen Delivery Method Room Air Oxygen Flow Rate 0 Objective Labs Result Diagrams: 04/23/22 04:50 Labs: Laboratory Results - last 24 hr 04/23/22 04:50 Hgb 11.2 L Hct 33.4 L PFSH Medical History Anxiety Asthma COPD (chronic obstructive pulmonary disease) Coronary artery disease Depression Drug-seeking behavior Easy bruisability GERD (gastroesophageal reflux disease) Hearing loss Hepatic steatosis HLD (hyperlipidemia) HTN (hypertension) Myocardial infarction Osteoarthritis Other chronic pain Pain in right hip Peptic ulcer disease Prediabetes PTSD (post-traumatic stress disorder) Seizures Stroke (1999) Tinea pedis Surgical History History of bilateral knee replacement History of surgery on wrist Hx of colonoscopy Hx of tonsillectomy Social History household members: none Smoking Status: Former smoker alcohol intake: never Discharge Plan Discharge Plan Patient Disposition: Home Discharge orders & Medications Discharge Orders: Discharge (Order); Ordered 04/23/22 Ordered By: Viet Wells Prescriptions: New acetaminophen 325 mg Tablet 650 mg PO Q6HR Qty: 60 0RF polyethylene glycol 3350 17 gram Powder In Packet 17 gm PO DAILY PRN (Reason: Constipation) Qty: 20 0RF oxycodone 5 mg Tablet 5 mg PO Q3HR PRN (Reason: Pain, Moderate (4-6)) Qty: 60 0RF Continued albuterol sulfate 90 mcg/actuation Hfa Aerosol Inhaler 2 puff Inhalation Q4H PRN (Reason: Shortness Of Breath) 0RF clotrimazole 1 % cream 1 applic Topical Q12H PRN (Reason: Rash) 0RF Label Comments: has not taken in month of May. metformin 500 mg Tablet 500 mg PO QAM 0RF trazodone 50 mg Tablet 50 mg PO BEDTIME PRN (Reason: Insomnia) 0RF hydroxyzine HCl 25 mg Tablet 25 mg PO TID PRN (Reason: Anxiety) 0RF losartan 100 mg Tablet 100 mg PO QAM 0RF sertraline 50 mg Tablet 50 mg PO QAM 0RF hydrochlorothiazide 12.5 mg Tablet 25 mg PO QAM 0RF Flonase Sensimist 27.5 mcg/actuation [place],Suspension 2 spray INTRANASAL BID 0RF atorvastatin 40 mg Tablet 40 mg PO BEDTIME 0RF clopidogrel 75 mg Tablet 75 mg PO DAILY 0RF Rx Instructions: takes in the evening cyclobenzaprine 5 mg Tablet 5 mg PO TID PRN (Reason: muscle spasms) Qty: 10 0RF lidocaine 5 % Adhesive Patch,Medicated 1 patch TOPICAL DAILY PRN (Reason: Pain) 0RF Rx Instructions: leave on most painful area for up to 12 hrs amlodipine 5 mg tablet See Rx Instructions .ROUTE .COMPLEX 0RF Rx Instructions: blood pressure carvedilol 12.5 mg tablet 25 mg PO BID 0RF Label Comments: TAKE 1 TABLET BY MOUTH 2 TIMES A DAY WITH MEALS albuterol sulfate 2.5 mg /3 mL (0.083 %) Solution For Nebulization 2.5 mg inhalation Q4H PRN (Reason: Wheezing) 0RF Discontinued oxycodone 5 mg Tablet 5 mg PO Q6H PRN (Reason: Pain) 0RF acetaminophen [Acetaminophen Extra Strength] 500 mg Tablet 500 mg PO Q4HR PRN (Reason: Pain) 0RF Follow up/Referrals: Ozzy Lam MD [Primary Care Provider] - Ileana Workman MD [Physician] - (2 weeks) Diet/Activity/Treatments Diet: Diet as Tolerated Activity: Weight-bearing as tolerated, posterior hip precautions Cold/Heat Therapy: Ice to hip as needed Skin/Wound/Dressing Care Report to your healthcare provider any signs of infection, such as:: chills, fever, increased pain, unusual drainage and unusual redness Dressing: Keep dressing clean and dry, follow prudencio instructions Visit Report/Discharge Packet Instructions: DI for Hip Replacement Stand Alone Forms: Surgery Discharge Discharge Data Primary Care Provider: Ozzy Lam Attending Provider: Ileana Workman
[2022-04-23 08:25] VITALS: BP 121/57
[2022-04-23] MEDS: LOSARTAN 50 MG TABLET 100 MG PO (08:25)
[2022-04-23] MEDS: CLOPIDOGREL 75 MG TABLET PO (08:25)
[2022-04-23] MEDS: DOCUSATE 100 MG CAPSULE PO (08:25)
[2022-04-23 08:26] VITALS: BP 121/59
[2022-04-23] MEDS: carvediloL 12.5 MG TABLET 25 MG PO (08:26)
[2022-04-23] MEDS: SERTRALINE 50 MG TABLET PO (08:26)
[2022-04-23] MEDS: AMLODIPINE 5 MG TABLET PO (08:26)
[2022-04-23] MEDS: METFORMIN HCL 500 MG TABLET PO (08:26)
[2022-04-23] MEDS: hydroCHLOROthiazide 25 MG TABLET PO (08:29)
--- NOTE | 2022-04-23 08:34 | PM.DS.1 ---
History of Present Illness History of Present Illness Date Patient Seen: 04/23/22 Time Patient Seen: 08:34 Chief complaint: Right hip pain Narrative: Right hip pain is mild. Denies fever or chills. No nausea or vomiting. Discharge Providers Provider Discharge Date: 04/23/22 Primary care physician: Ozzy Lam MD Consults: 02/12/22 08:55 Consult to Anesthesiology Routine Comment: Consulting Provider: Anesthesiologist Reason for consultation: Surgeon requested re: COPD 02/18/22 06:00 Consult to Anesthesiology Routine Comment: Consulting Provider: Anesthesiologist Reason for consultation: Regional block for post operative pain control 04/22/22 10:22 Consult to Anesthesiology Routine Comment: Consulting Provider: Anesthesiologist Reason for consultation: Regional block for post operative pain control 04/22/22 17:02 Consult to Discharge Planning Routine Comment: may need ecf Consult to Physical Therapy Evaluate & Treat Comment: Physician Instructions: post op PAUL protocol Consult to Respiratory Therapy Evaluate & Treat Comment: Physician Instructions: Evaluate and treat Discharge provider: Viet Wells PA-C Summary Hospital Course Discharge Diagnosis: Severe right hip osteoarthritis Hospital Course: Right total hip arthroplasty posterior approach Same procedure as scheduled: Yes Indications: The patient has had progressively worsening right hip pain with radiographic changes consistent with arthritis. Non-operative management has failed and the patient has requested total hip replacement. The risks, benefits and alternatives to surgery were discussed with the patient prior to proceeding. Risks discussed included, but were not limited to, failure to relieve pain, leg length discrepancy, dislocation, stiffness, infection, nerve damage, deep venous thrombosis, pulmonary embolism, stroke, coma, heart attack, permanent paralysis and , as well as the potential need for eventual revision of the prosthetic. Surgeon: Ileana Workman Manager New Product: Viet Wells Anesthesia Type: General and Spinal Operative Notes Findings: Severe right hip osteoarthritis, adequate bone, adequate stability Closure Type: primary Specimen(s): none sent Prosthetic devices, grafts, tissues, transplants, or devices: Workman [employer]hew anthology standard offset size 5, R3 50, +4 oxinium head Applied: drain(s) Estimated Blood Loss (mL): 250 Blood products transfused: none Patient admitted to the hospital for right total hip arthroplasty, posterior approach. Patient consented to the same. Patient taken operating room on April 22, 2022 for right total hip arthroplasty. Patient back in her room recovering well as in stable condition. Patient what physical therapy today. She will be discharged home today after physical therapy if safe for home environment. Exam Vital Signs (past 8 hours): - 04/23/22 02:14 04/23/22 07:00 04/23/22 08:25 Temperature 97.1 F L 97.7 F Pulse Rate 85 76 Respiratory Rate 18 17 Blood Pressure 115/63 121/54 L 121/57 L Pulse Oximetry 96 99 04/23/22 08:26 Temperature Pulse Rate Respiratory Rate Blood Pressure 121/59 L Pulse Oximetry Oxygen Delivery Method Room Air Oxygen Flow Rate 0 Narrative Exam Narrative: Pleasant 61-year-old female resting comfortably in bed in no apparent distress. Motor functions intact bilateral lower extremities. Sensation grossly intact to light touch bilateral lower extremities. Prudencio dressing is on and functioning. Dressing is Clean, dry, intact.. Objective Labs Result Diagrams: 04/23/22 04:50 Labs: Laboratory Results - last 24 hr 04/23/22 04:50 Hgb 11.2 L Hct 33.4 L PFSH Medical History Anxiety Asthma COPD (chronic obstructive pulmonary disease) Coronary artery disease Depression Drug-seeking behavior Easy bruisability GERD (gastroesophageal reflux disease) Hearing loss Hepatic steatosis HLD (hyperlipidemia) HTN (hypertension) Myocardial infarction Osteoarthritis Other chronic pain Pain in right hip Peptic ulcer disease Prediabetes PTSD (post-traumatic stress disorder) Seizures Stroke (1999) Tinea pedis Surgical History History of bilateral knee replacement History of surgery on wrist Hx of colonoscopy Hx of tonsillectomy Social History household members: none Smoking Status: Former smoker alcohol intake: never Discharge Assessment & Plan Assessment and Plan Assessment: Patient progressing as expected status post right total hip arthroplasty, posterior approach Plan of Treatment: Mobilize with physical therapy Multimodal pain management Discharge home today after physical therapy if safe for home environment. Discharge Plan Discharge Plan Patient Disposition: Home Discharge orders & Medications Discharge Orders: Discharge (Order); Ordered 04/23/22 Ordered By: Viet Wells Prescriptions: New acetaminophen 325 mg Tablet 650 mg PO Q6HR Qty: 60 0RF polyethylene glycol 3350 17 gram Powder In Packet 17 gm PO DAILY PRN (Reason: Constipation) Qty: 20 0RF oxycodone 5 mg Tablet 5 mg PO Q3HR PRN (Reason: Pain, Moderate (4-6)) Qty: 60 0RF Continued albuterol sulfate 90 mcg/actuation Hfa Aerosol Inhaler 2 puff Inhalation Q4H PRN (Reason: Shortness Of Breath) 0RF clotrimazole 1 % cream 1 applic Topical Q12H PRN (Reason: Rash) 0RF Label Comments: has not taken in month of May. metformin 500 mg Tablet 500 mg PO QAM 0RF trazodone 50 mg Tablet 50 mg PO BEDTIME PRN (Reason: Insomnia) 0RF hydroxyzine HCl 25 mg Tablet 25 mg PO TID PRN (Reason: Anxiety) 0RF losartan 100 mg Tablet 100 mg PO QAM 0RF sertraline 50 mg Tablet 50 mg PO QAM 0RF hydrochlorothiazide 12.5 mg Tablet 25 mg PO QAM 0RF Flonase Sensimist 27.5 mcg/actuation [place],Suspension 2 spray INTRANASAL BID 0RF atorvastatin 40 mg Tablet 40 mg PO BEDTIME 0RF clopidogrel 75 mg Tablet 75 mg PO DAILY 0RF Rx Instructions: takes in the evening cyclobenzaprine 5 mg Tablet 5 mg PO TID PRN (Reason: muscle spasms) Qty: 10 0RF lidocaine 5 % Adhesive Patch,Medicated 1 patch TOPICAL DAILY PRN (Reason: Pain) 0RF Rx Instructions: leave on most painful area for up to 12 hrs amlodipine 5 mg tablet See Rx Instructions .ROUTE .COMPLEX 0RF Rx Instructions: blood pressure carvedilol 12.5 mg tablet 25 mg PO BID 0RF Label Comments: TAKE 1 TABLET BY MOUTH 2 TIMES A DAY WITH MEALS albuterol sulfate 2.5 mg /3 mL (0.083 %) Solution For Nebulization 2.5 mg inhalation Q4H PRN (Reason: Wheezing) 0RF Discontinued oxycodone 5 mg Tablet 5 mg PO Q6H PRN (Reason: Pain) 0RF acetaminophen [Acetaminophen Extra Strength] 500 mg Tablet 500 mg PO Q4HR PRN (Reason: Pain) 0RF Follow up/Referrals: Ozzy Lam MD [Primary Care Provider] - Ileana Workman MD [Physician] - (2 weeks) Diet/Activity/Treatments Diet: Diet as Tolerated Activity: Weight-bearing as tolerated, posterior hip precautions Cold/Heat Therapy: Ice to hip as needed Skin/Wound/Dressing Care Report to your healthcare provider any signs of infection, such as:: chills, fever, increased pain, unusual drainage and unusual redness Dressing: Keep dressing clean and dry, follow prudencio instructions Visit Report/Discharge Packet Instructions: DI for Hip Replacement Stand Alone Forms: Surgery Discharge Discharge Data Primary Care Provider: Ozzy Lam Attending Provider: Ileana Workman
[2022-04-23] MEDS: OXYCODONE IR 10 MG TABLET PO (10:11)
--- NOTE | 2022-04-23 10:40 | PT.IIE ---
Current Diagnoses Other chronic pain (04/22/22) Atherosclerotic heart disease of [place] coronary artery without angina pectoris (04/22/22) Chronic obstructive pulmonary disease with (acute) exacerbation (04/22/22) Unilateral primary osteoarthritis, right hip (04/22/22) Other chest pain (04/22/22) Unspecified abdominal pain (04/22/22) Presence of unspecified artificial hip joint (04/22/22) Surgery Performed Operation Date: 04/22/22 11:30 Actual Procedures p Total Hip Arthroplasty(Right) - Ileana Workman MD Medical History (Last Reviewed 04/23/22 @ 08:37 by Viet Wells PA-C) Anxiety Asthma COPD (chronic obstructive pulmonary disease) Coronary artery disease Depression Drug-seeking behavior Easy bruisability GERD (gastroesophageal reflux disease) Hearing loss Hepatic steatosis HLD (hyperlipidemia) HTN (hypertension) Myocardial infarction Osteoarthritis Other chronic pain Pain in right hip Peptic ulcer disease Prediabetes PTSD (post-traumatic stress disorder) Seizures Stroke (1999) Tinea pedis Physical Therapy Inpatient Evaluation/Re-Eval M1 PT/OT-IP Prior Functional Status Start: 04/23/22 12:58 Freq: NEEDED Status: Active Protocol: Document 04/23/22 10:40 AB (Rec: 04/23/22 13:22 AB [id number]) Medical Review Prior Functional Status Medical History Reviewed Yes Communication able to make needs known Mobility and Gait pt stated that she is modified independent with all mobilities and ambulation usng 4WW indoors; uses SPC to get from the house to the car and then uses an electric scooter for outdoor mobility Social History Household Members none Living Arrangements House Number of Floors (Floors) One Floor Number of Stairs To Enter/Railing? no steps to enter has 1 step up to be able to reach EOB Home Environment Standard Height Toilet,Walk in Shower Home Equipment Front Wheel Walker,Four Wheel Walker,Straight Cane,Shower Seat without Backrest,Grab Bars Near Toilet,Grab Bars In Shower Additional Social History Comment pt's cousin stated that she will be pt's caregiver and will be with pt from morning until night but cannot stay with pt 22/06 and has to go back to her house at night. M2 PT-IP Current Condition Start: 04/23/22 12:58 Freq: NEEDED Status: Active Protocol: Document 04/23/22 10:40 AB (Rec: 04/23/22 13:22 AB [id number]) Physical Therapy Current Condition Current Condition Evaluation Date 04/23/22 Treatment Diagnosis s/p R PAUL posterior approach; difficulty in walking Onset Date 04/22/22 M3 PT-IP Subjective Start: 04/23/22 12:58 Freq: NEEDED Status: Active Protocol: Document 04/23/22 10:40 AB (Rec: 04/23/22 13:22 AB [email or web address]) Subjective Physical Therapy Visit Type Type Initial Evaluation Visit Start Time 10:40 Visit Stop Time 11:35 Total Visit Minutes 55 Number of CHEMICAL PROCESS PROJECT ENGINEER Visits 0 Physical Therapy Visit Comments Patient Comments agreeable to do PT Therapy Pain Assessment Pain When Pain Assessed At Rest Pain Present Pain Present Pain Reported Location Right Hip Intensity 8 Scale Used Numeric (0 - 10) Pain Management Techniques Distraction,Modification of Treatment,Re-positioning, Timing of Activity with Medications M4 PT-IP Mobility and Gait Start: 04/23/22 12:58 Freq: NEEDED Status: Active Protocol: Document 04/23/22 10:40 AB (Rec: 04/23/22 13:22 AB [email or web address]) PT-Bed Mobility Assessment Supine to Sit Supine to Sit Standby Assistance PT-Transfer Assessment Sit to and From Stand Sit to and from Stand Standby Assistance,Contact Guard Assistance,1 Person Assistance,Use of Upper Extremities Equipment Transfer Assistive Device Gait Belt,Front Wheeled Walker Orthotic/Prosthetic Devices or Brace: No Transfers Transfer Destination Toilet Transfer Technique ambulated Transfer Ability Level of Assist Standby Assistance,Contact Guard Assistance,1 Person Assistance,Use of Upper Extremities Comments Mobility Comments Pt's cousin in room with pt and will be pt's caregiver. pt and caregiver educated on pt's posterior hip precautions . pt able to recall. completed supine to sit SBA. able to sit on EOB SBA. completed wit to stand CGA and cues for hip precautions and ambulated to the toilet using FWW ~ 25 ft SBA to CGA. completed sit to stand CGA and pt ambulated towards the sink using FWW SBA. able to maintain standing SBA while completing handwashing. pt ambulated to the chair and rested. educated pt on stepping up/ down step stool (pt uses step stool to get into her bed) using FWW. pt completed up/ down step stool min A using FWW. pt repeated and able to complete with SBA. pt ambulated more in room using FWW ~ 30 ft SBA. pt agreed to sit on the chair. call light and table placed within reach . pt and caregiver without any questions. caregiver instructed on how to assist pt if needed. pt only needing SBA at end of PT session for mobility. Gait Assessment Gait Gait Assistance Required: Standby Assistance,Contact Guard Assist Distance (Feet) 30 Able to Maintain Weight Bearing Status Yes During Gait Assistive Devices Assistive Device Gait Belt,Front Wheeled Walker Orthotic/Prosthetic Devices or Brace: No Gait Deviations General Gait Pattern Antalgic,Decreased Stride Length,Decreased Feet Clearance,Step-to Gait Factors Limiting Gait Function Factors Limiting Gait Function Decreased Activity Tolerance, Decreased Strength,Limited Range of Motion,Pain,Poor Balance,Poor Safety Awareness Stair Climbing Assessment Evaluation Level of Assist On Stairs Standby Assistance,Minimal Assistance Devices Stair Climbing Assistive Devices Front Wheel Walker Technique/Endurance Stair Climbing Direction Ascend and Descend Stair Climbing Technique Step to Step Number of Steps Climbed 1 Query Text: Stair Climbing Set # Repetitions (reps) 2 PT-Balance Assessment Sitting Balance and Reactions Static Sitting Balance Ability Normal Dynamic Sitting Balance Ability Normal Standing Balance and Reactions Dynamic Standing Balance Ability Fair Device Used FWW M5 PT-IP Objective Assessments Start: 04/23/22 12:58 Freq: NEEDED Status: Active Protocol: Document 04/23/22 10:40 AB (Rec: 04/23/22 13:22 AB [id number]) Orientation Orientation/Cognition Level of Alertness Alert Orientation Name,Age,Birthday,Month,Date, Year,Day of Week,Place, Situation Language Function Ability No Deficits Noted Safety Awareness Understands Safety Issues Memory Description No Deficits Noted Gross Range of Motion Lower Extremity ROM Assessment Within Functional Limits Strength Lower Extremity Strength Assessment Right Impaired Hip 3+/5 Knee 4-/5 Coordination Assessment Gross Coordination Gross Coordination WNL Sensation Assessment Sensation Gross Sensation WNL Muscle Tone Muscle Tone WNL Yes M6 PT-IP Treatment Start: 04/23/22 12:58 Freq: NEEDED Status: Active Protocol: Document 04/23/22 10:40 AB (Rec: 04/23/22 13:22 AB [email or web address]) Physical Therapy Treatment Education Education Provided Precautions,Weight Bearing Status,Post-Op Packet,Safety M7 PT-IP Assessment and Plan Start: 04/23/22 12:58 Freq: NEEDED Status: Active Protocol: Document 04/23/22 10:40 AB (Rec: 04/23/22 13:22 AB [id number]) PT Summary Assessment and Plan Potential Rehabilitation Potential Good Status of Condition at Evaluation Stable Summary Impairments Pain,ROM,Strength,Balance, Coordination,Sensation,Tone, Cognition,Bed Mobility, Transfers,Gait,Activity Tolerance Assessment Summary pt initially requiring CGA to min A with mobility but at the end of PT session was only needing SBA. pt will have her cousin to assist her at home and is set up for caregiver training. pt may go home when medically stable. Goals Bed Mobility Goal Independent Transfer Goal Independent,Front Wheeled Walker Gait Goal Independent,Front Wheel Walker Gait Distance 200 Other Goals up/down 1 step using FWW to bed Days to Meet Goals 5 Frequency of Treatment Frequency Of Treatment Twice a Day Treatment Plan Physical Therapy Treatment Plan Bed Mobility Training,Transfer Training,Gait Training, Therapeutic Exercise,Balance Retraining,Post Op Education, Discharge Planning,Hot or Cold Pack,Neuromuscular Re-ed, Coordination Retraining,Manual Therapy Precautions Posterior Hip Precautions No Hip Flexion > 90 degrees,No Hip Internal Rotation,No Hip Adduction Weight Bearing Status Weight Bearing Status Weight Bear as Tolerated Allowed Weight Bearing Amount (enter % RLE WBAT or #) (%) Recommendations To Nursing Amount of Assist Needed 1 Person Assist Discharge Recommendations PT Discharge Recommendations Home with Assistance, Outpatient PT Transportation Needs at Discharge Private Vehicle
[2022-04-23 10:51] VITALS: BP 124/59; PULSE 78; RESP 17; TEMP 36.8; O2SAT 100
--- NOTE | 2022-04-23 14:00 | PC.NURSE ---
Pt received D\C orders this morning. HL D/C intact. Med once w/oxycodone w/good relief. Pt escorted by staff via W/C to waiting vehicle in stable post op status.
== END 2022-04-23 13:35 | disposition home or self-care (01) ==
LOC: OR 10:35 → AC 10:38
PROVIDERS: PCP Family Medicine; Referring Provider Orthopaedic Surgery; Visit Provider Orthopaedic Surgery
PROC: 0SR90JZ Replacement of Right Hip Joint with Synthetic Substitute, Open Approach (ICD-10-PCS; CPT 27130; principal; 2022-04-22 11:30)
DX: M16.11 Unilateral primary osteoarthritis, right hip (principal); E78.5 Hyperlipidemia, unspecified; I10 Essential (primary) hypertension; I25.10 Atherosclerotic heart disease of native coronary artery without angina pectoris; J44.9 Chronic obstructive pulmonary disease, unspecified; E11.9 Type 2 diabetes mellitus without complications; E66.9 Obesity, unspecified; K21.9 Gastro-esophageal reflux disease without esophagitis; F17.210 Nicotine dependence, cigarettes, uncomplicated; Z86.73 Personal history of transient ischemic attack (TIA), and cerebral infarction without residual deficits; Z79.84 Long term (current) use of oral hypoglycemic drugs; Z68.33 Body mass index [BMI] 33.0-33.9, adult
CPT/HCPCS: 27130; 36415; 72170; 73502; 82962; 85014; 85018; 97161; 97530; C1776; C9290; J0171; J0690; J1100; J1200; J2250; J2274; J2405; J2704; J3010

== ENCOUNTER 2022-04-30 14:47 | Emergency (ER) | payer MEDICAID, SELFPAY ==
[2022-04-22 17:18] VITALS: BMI 32.5
[2022-04-30 15:39] VITALS: BP 125/60; PULSE 85; RESP 18; TEMP 36.6; O2SAT 100; BMI 32.1
== END 2022-04-30 17:38 | disposition left against medical advice (07) ==
PROVIDERS: Emergency Provider Emergency Medicine
DX: R22.9 Localized swelling, mass and lump, unspecified (principal)
CPT/HCPCS: 99281

== ENCOUNTER 2022-05-04 20:20 | Emergency (ER) | payer MEDICAID, SELFPAY ==
[2022-04-22 17:18] VITALS: BMI 32.5
[2022-05-04 20:28] VITALS: BP 155/67; PULSE 96; RESP 18; O2SAT 99; BMI 32.5
--- NOTE | 2022-05-04 20:29 | DI.RAD.S_ITS ---
PROCEDURE: XR HIP W PEL IF DONE RT 2V INDICATIONS: pain in hip, no injury, recent hip surgery TECHNIQUE: AP pelvis with AP and lateral views of the right hip. COMPARISON: [facility], , XR HIP W PEL IF DONE RT 2V, 04/22/2022, 16:31. FINDINGS: Bones: No fractures or dislocations. There is a right hip prosthesis redemonstrated. No change in alignment or definite new suspicious periprosthetic lucencies. Pelvic ring appears intact. No suspicious bony lesions. Soft tissues: The visualized bowel gas pattern is normal. No suspicious soft tissue calcifications. IMPRESSION: 1. No fracture or dislocation. 2. No definite evidence of hardware failure. Dictated by: Alex Evans M.D. on 05/04/2022 at 21:52 Approved by: Alex Evans M.D. on 05/04/2022 at 21:53
--- NOTE | 2022-05-04 20:44 | ED.EXTPRO ---
HPI - Extremity Problem General Chief complaint: Extremity Problem,Nontraumatic Stated complaint: Hip Pain Time Seen by Provider: 05/04/22 20:23 Source: patient Mode of arrival: EMS History of Present Illness HPI Narrative: 61-year-old female former smoker with history of chronic pain, COPD and recent total hip arthroplasty at our facility presents by EMS and chief complaint of severe hip pain. She denies any fall or trauma has no obvious external manifestation of injury, dislocation or other abnormality. She had most recently received pain medications on 04/23 it was given 8 days worth, she states that her most current Rx was held at the pharmacy for some reason. She has pain with motion or ambulation but denies any numbness, tingling or weakness. She has had no fever or chills. She denies nausea, vomiting or diarrhea. She is otherwise well and free of complaint Related Data Home Medications Medication Instructions Recorded Confirmed albuterol sulfate 90 mcg/actuation 2 puff INHALATION Q4H PRN 04/29/18 02/10/22 aerosol inhaler clotrimazole 1 % topical cream 1 applic TOPICAL Q12H PRN 04/29/18 04/22/22 albuterol sulfate 2.5 mg INHALATION Q4H PRN 12/07/19 02/10/22 carvedilol 12.5 mg tablet 25 mg PO BID 12/07/19 04/22/22 fluticasone furoate 27.5 2 spray INTRANASAL BID 06/26/20 04/22/22 mcg/actuation nasal spray,suspension (Flonase Sensimist) hydrochlorothiazide 12.5 mg tablet 25 mg PO QAM 06/26/20 04/22/22 hydroxyzine HCl 25 mg tablet 25 mg PO TID PRN 06/26/20 02/10/22 losartan 100 mg tablet 100 mg PO QAM 06/26/20 04/22/22 metformin 500 mg tablet 500 mg PO QAM 06/26/20 04/22/22 sertraline 50 mg tablet 50 mg PO QAM 06/26/20 04/22/22 trazodone 50 mg tablet 50 mg PO BEDTIME PRN 06/26/20 04/22/22 atorvastatin 40 mg tablet 40 mg PO BEDTIME 06/29/20 04/22/22 clopidogrel 75 mg tablet 75 mg PO DAILY 06/29/20 04/22/22 lidocaine 5 % topical patch 1 patch TOPICAL DAILY PRN 02/10/22 04/22/22 amlodipine 5 mg tablet See Rx Instructions .ROUTE .COMPLEX 04/22/22 04/22/22 Previous Rx's Medication Instructions Recorded cyclobenzaprine 5 mg tablet 5 mg PO TID PRN #10 tab 06/29/20 acetaminophen 325 mg tablet 650 mg PO Q6HR #60 tab 04/23/22 oxycodone 5 mg tablet 5 mg PO Q3HR PRN #60 tab 04/23/22 polyethylene glycol 3350 17 gram 17 gm PO DAILY PRN #20 ea 04/23/22 oral powder packet Allergies Allergy/AdvReac Type Severity Reaction Status Date / Time aspirin [ASPIRIN] Allergy Severe Throat Verified 02/10/22 12:08 closes, eye itching, difficulty breathing buprenorphine [From Suboxone] Allergy Severe Throat Verified 02/10/22 12:08 closing, vomiting ibuprofen [IBUPROFEN] Allergy Severe Throat Verified 02/10/22 12:08 closes, eye itching, difficulty breathing ketorolac [From TORADOL] Allergy Severe Throat Verified 02/10/22 12:08 closes, eye itching, difficulty breathing methadone Allergy Severe Hard time Verified 02/10/22 12:08 breathing, my vital signs were dropping naloxone [From Suboxone] Allergy Severe Throat Verified 02/10/22 12:08 closing, vomiting NSAIDS (Non-Steroidal Allergy Severe Throat Verified 02/10/22 12:08 Anti-Inflamma closes, eye itching, difficulty breathing tramadol [TRAMADOL] Allergy Severe Rash, my Verified 02/10/22 12:08 throat was closing Beef Containing Products Allergy Hives Verified 02/10/22 13:12 duloxetine Allergy Rash Verified 02/10/22 13:12 gabapentin AdvReac Gastrointestinal Verified 02/10/22 13:12 Upset Review of Systems Review of Systems Narrative: GENERAL: Denies chills, fatigue, malaise, fever, sweats. HEENT: Denies sinus pain, ear pain, sore throat, difficulty swallowing, dizziness. RESPIRATORY: Denies dyspnea, cough, wheezing, hemoptysis, sputum. CARDIOVASCULAR: Denies chest pain, palpitations, orthopnea, edema, GASTROINTESTINAL: Denies nausea, vomiting, abdominal pain, diarrhea, constipation, melena. : Denies dysuria, frequency, incontinence, hematuria, urinary retention. MUSCULOSKELETAL: See HPI SKIN: Denies rash, skin lesions, or other NEUROLOGIC: Denies weakness, headache, numbness, change in speech, confusion, seizures, incoordination. PSYCHIATRIC: No concerning psychosocial issues. 12 point review of systems is negative except for those stated above Patient History Medical History Anxiety Asthma COPD (chronic obstructive pulmonary disease) Coronary artery disease Depression Drug-seeking behavior Easy bruisability GERD (gastroesophageal reflux disease) Hearing loss Hepatic steatosis HLD (hyperlipidemia) HTN (hypertension) Myocardial infarction Osteoarthritis Other chronic pain Pain in right hip Peptic ulcer disease Prediabetes PTSD (post-traumatic stress disorder) Seizures Stroke (1999) Tinea pedis Surgical History History of bilateral knee replacement History of surgery on wrist Hx of colonoscopy Hx of tonsillectomy Social History household members: none Smoking Status: Former smoker alcohol intake: never Smoking Status: Former smoker alcohol intake frequency: holidays/special occasions only Substance Use Type: does not use Exam Narrative Exam Narrative: GENERAL: [61 year old patient appears stated age. Well-developed patient, in mild distress. Requesting pain medication for her hip HEAD: Atraumatic. Normocephalic. EYES: Pupils equal round and reactive. Extraocular motions intact. No scleral icterus. No injection or drainage. ENT: Nose without bleeding, purulent drainage. Throat without erythema, tonsillar hypertrophy or exudate. Airway patent. NECK: Trachea midline. Non tender CARDIOVASCULAR: Regular rate and rhythm without murmurs, gallops, or rubs. RESPIRATORY: Clear to auscultation. Breath sounds equal bilaterally. No wheezes, rales, or rhonchi. GASTROINTESTINAL: Abdomen soft, non-tender, nondistended. EXTREMITIES: No edema or joint tenderness. No redness, warmth or swelling, incision appears clean, dry and intact. No evidence of dislocation or fracture such as shortening or rotation BACK: Nontender without deformity or crepitance. No flank tenderness. NEURO: AOx3. SKIN: No rash or erythema of visible areas Initial Vital Signs Initial Vital Signs: Vital Signs Pulse Rate 96 H 05/04/22 20:28 Respiratory Rate 18 05/04/22 20:28 Blood Pressure 155/67 H 05/04/22 20:28 Pulse Oximetry 99 05/04/22 20:28 Course Orders Ordered: Discontinued Medications Oxycodone/Acetaminophen (Oxycodone/Apap 5/325 Prepack) 1 bottle MISC SEEINSTR ONE Stop: 05/04/22 21:31 Last Admin: 05/04/22 22:17 Dose: 1 bottle Documented by: SHRAVAN Reevaluation(s) Reevaluation #1: Patient has significant improvement after receiving a dose of pain medication Vital Signs Vital signs: Vital Signs - 8 hr 05/04/22 20:28 Pulse Rate 96 H Respiratory Rate 18 Blood Pressure 155/67 H Pulse Oximetry 99 MDM - Extremity (Nontraumatic) Imaging Data Xray Hip: Radiologist's Impression: [address] [address] XRay Report Signed Patient: Cira Stafford MR#: [id number] : 1960 Acct:[id number] Age/Sex: 61 / F Date of Service: 05/04/22 Loc: ED Accession Number: [id number] ?? Procedure: XR hip w pel if done RT 2V Ordering Provider: Arsenio Hand D.O. PROCEDURE:? XR HIP W PEL IF DONE RT 2V ? INDICATIONS:? pain in hip, no injury, recent hip surgery ? TECHNIQUE:? AP pelvis with AP and lateral views of the right hip. ? COMPARISON:? [facility], , XR HIP W PEL IF DONE RT 2V, 04/22/2022, 16:31. ? FINDINGS:? ? Bones:? No fractures or dislocations.? There is a right hip prosthesis redemonstrated.? No change in alignment or definite new suspicious periprosthetic lucencies.? Pelvic ring appears intact.? No suspicious bony lesions.? ? Soft tissues:? The visualized bowel gas pattern is normal.? No suspicious soft tissue calcifications.? ? ? IMPRESSION:? ? 1. No fracture or dislocation. ? 2. No definite evidence of hardware failure.? Dictated by: Alex Evans M.D. on 05/04/2022 at 21:52 ? ? Approved by: Alex Evans M.D. on 05/04/2022 at 21:53 ? MDM Narrative Medical decision making narrative: 61-year-old female with reassuring history and physical exam presents by EMS for evaluation of right hip pain. She denies any injury or systemic complaints to suggest infection. Incision is clean, dry and intact. No signs of infection. Imaging is reassuring and demonstrates no hardware failure or dislocation. She had an issue getting her prescriptions picked up and this is most likely a consequence of a chronic pain patient not having access to her pain medications. She was given a short course here in the department and encouraged to follow up closely. Return precautions discussed and questions answered to her apparent satisfaction Discharge Plan Departure Patient Disposition: Home Clinical Impression: Acute postoperative pain of hip Qualifiers: Laterality: right Qualified Code(s): G89.18 - Other acute postprocedural pain Instructions: DI for Hip Pain Activity Restrictions/Additional Instructions: *You have been diagnosed with [acute postoperative right hip pain. As we discussed your history and physical exam are very reassuring and there is no evidence of dislocation, problem with the hardware, infection or blood clot. *What to do: *Please continue to take your regular medications as directed. [ ] New medication prescriptions sent to your pharmacy: [ ] [ ] New medication written as a paper prescription [x ] No new medications given *Please follow up with Dr. Workman as planned on 05/07, however call tomorrow and let them know you were seen in the Emergency Department and that we ask that you be seen in follow up. We will electronically transmit a record of today's note. You may need Dr. Workman's help to get the pharmacy to refill your prescription *Return to Emergency Department if you should have any new, worsening or concerning symptoms Prescriptions: No Action albuterol sulfate 90 mcg/actuation Hfa Aerosol Inhaler 2 puff Inhalation Q4H PRN (Reason: Shortness Of Breath) 0RF clotrimazole 1 % cream 1 applic Topical Q12H PRN (Reason: Rash) 0RF Label Comments: has not taken in month of May. metformin 500 mg Tablet 500 mg PO QAM 0RF trazodone 50 mg Tablet 50 mg PO BEDTIME PRN (Reason: Insomnia) 0RF hydroxyzine HCl 25 mg Tablet 25 mg PO TID PRN (Reason: Anxiety) 0RF losartan 100 mg Tablet 100 mg PO QAM 0RF sertraline 50 mg Tablet 50 mg PO QAM 0RF hydrochlorothiazide 12.5 mg Tablet 25 mg PO QAM 0RF Flonase Sensimist 27.5 mcg/actuation [place],Suspension 2 spray INTRANASAL BID 0RF atorvastatin 40 mg Tablet 40 mg PO BEDTIME 0RF clopidogrel 75 mg Tablet 75 mg PO DAILY 0RF Rx Instructions: takes in the evening cyclobenzaprine 5 mg Tablet 5 mg PO TID PRN (Reason: muscle spasms) Qty: 10 0RF lidocaine 5 % Adhesive Patch,Medicated 1 patch TOPICAL DAILY PRN (Reason: Pain) 0RF Rx Instructions: leave on most painful area for up to 12 hrs amlodipine 5 mg tablet See Rx Instructions .ROUTE .COMPLEX 0RF Rx Instructions: blood pressure acetaminophen 325 mg Tablet 650 mg PO Q6HR Qty: 60 0RF polyethylene glycol 3350 17 gram Powder In Packet 17 gm PO DAILY PRN (Reason: Constipation) Qty: 20 0RF oxycodone 5 mg Tablet 5 mg PO Q3HR PRN (Reason: Pain, Moderate (4-6)) Qty: 60 0RF carvedilol 12.5 mg tablet 25 mg PO BID 0RF Label Comments: TAKE 1 TABLET BY MOUTH 2 TIMES A DAY WITH MEALS albuterol sulfate 2.5 mg /3 mL (0.083 %) Solution For Nebulization 2.5 mg inhalation Q4H PRN (Reason: Wheezing) 0RF Visit Report Forms: Patient Portal/API
[2022-05-04] MEDS: OXYCODONE/APAP 5/325 PREPACK 1 BOTTLE MISC (22:17)
--- NOTE | 2022-05-04 22:24 | PC.NURSE ---
Per provider, gave patient 1 tab out of prepack with 3 to be sent home. Patient acknowledged.
[2022-05-04 22:51] VITALS: BP 136/64; PULSE 90; RESP 18; O2SAT 98
== END 2022-05-04 22:53 | disposition home or self-care (01) ==
PROVIDERS: Emergency Provider Emergency Medicine
DX: G89.18 Other acute postprocedural pain (principal); Z96.641 Presence of right artificial hip joint
CPT/HCPCS: 73502; 99281; 99283

== ENCOUNTER → 2023-10-30 12:51 | Outpatient (CLI) | payer MEDICAID, SELFPAY ==
[2022-04-22 17:18] VITALS: BMI 32.5
== END ==
PROVIDERS: PCP Student in an Organized Health Care Education/Training Program; Referring Provider Internal Medicine; Visit Provider Internal Medicine
DX: Z01.818 Encounter for other preprocedural examination (principal); Z87.891 Personal history of nicotine dependence
CPT/HCPCS: 94060; 94726; 94729

== ENCOUNTER 2024-09-14 14:18 | Emergency (ER) | payer MEDICAID, SELFPAY ==
[2022-04-22 17:18] VITALS: BMI 32.5
[2024-09-14 14:22] VITALS: BP 144/70; PULSE 78; RESP 18; TEMP 37; O2SAT 99; BMI 34.7
--- NOTE | 2024-09-14 14:43 | EKG_ITS ---
[address] [address] Test Date: 2024-09-14 Pat Name: Cira Stafford Department: Room: Gender: Female Field Service Specialist: MARC : 1960 Requested By: Order Number: [id number] Reading MD: Bipin Salinas Measurements Intervals [place] Rate: 70 P: -1 DE: 110 QRS: 20 QRSD: 78 T: 36 QT: 394 QTc: 425 Interpretive Statements Sinus rhythm with short DE Electronically Signed On 09-14-2024 18:10:09 PDT by Bipin Salinas
--- NOTE | 2024-09-14 17:01 | ED_ITS ---
HPI - Chest Pain General Chief Complaint: Chest Pain Stated Complaint: can't hold anything down, chest pain Time Seen by Provider: 09/14/24 17:01 Source: patient Mode of arrival: Ambulatory Limitations: no limitations History of Present Illness HPI narrative: Patient is a 64-year-old female with a past medical history of COPD not requiring any supplemental oxygen at baseline, peptic ulcer disease, diabetes, comes into the ED from home for evaluation of persistent cough, nausea vomiting chest tightness difficulty breathing. Patient apparently was seen at [facility] proximally 24 hours ago, states that she was sent home with Jason and Patt Mackey which she only picked up prior to arrival. She states that she called her primary care doctor due to the fact that she is still nauseous and is unable to tolerate anything p.o., therefore she was instructed come into the ED for further evaluation treatment. States that she has been using her albuterol inhaler without much relief, states that she is still feeling some chest tightness and wheezing. She denies any recent travel no known sick contacts, Records were received from [facility], patient did have chest x-ray performed that did not show any acute findings. Patient was also tested for respiratory panel that did not show any findings. Related Data Home Medications Medication Instructions Recorded Confirmed albuterol sulfate 90 mcg/actuation 2 puff inhalation Q4H PRN 04/29/18 10/16/23 aerosol inhaler Shortness Of Breath clotrimazole 1 % topical cream 1 applic topical Q12H PRN Rash 04/29/18 10/16/23 albuterol sulfate 2.5 mg/3 mL 2.5 mg inhalation Q4H PRN Wheezing 12/07/19 10/16/23 (0.083 %) solution for nebulization carvedilol 12.5 mg tablet 25 mg PO BID 12/07/19 10/16/23 hydrochlorothiazide 12.5 mg tablet 25 mg PO QAM 06/26/20 10/16/23 hydroxyzine HCl 25 mg tablet 25 mg PO TID PRN Anxiety 06/26/20 10/16/23 losartan 100 mg tablet 100 mg PO QAM 06/26/20 10/16/23 metformin 500 mg tablet 500 mg PO QAM 06/26/20 10/16/23 sertraline 50 mg tablet 50 mg PO QAM 06/26/20 10/16/23 trazodone 50 mg tablet 50 mg PO BEDTIME PRN Insomnia 06/26/20 10/16/23 clopidogrel 75 mg tablet 75 mg PO DAILY 06/29/20 10/16/23 lidocaine 5 % topical patch 1 patch topical DAILY PRN Pain 02/10/22 10/16/23 atorvastatin 40 mg tablet 80 mg PO BEDTIME 10/16/23 10/16/23 Previous Rx's Medication Instructions Recorded cyclobenzaprine 5 mg tablet 5 mg PO TID PRN muscle spasms #10 06/29/20 tabs acetaminophen 325 mg tablet 650 mg (2 x 325 mg) PO Q6HR #60 04/23/22 tabs oxycodone 5 mg tablet 5 mg PO Q3HR PRN Pain, Moderate 04/23/22 (4-6) #60 tabs polyethylene glycol 3350 17 gram 17 gm PO DAILY PRN Constipation 04/23/22 oral powder packet #20 ea metoclopramide HCl 10 mg tablet 10 mg PO BID 3 days #6 tabs 09/14/24 (Reglan) oxycodone-acetaminophen 5 mg-325 1 tab PO Q8H PRN pain 3 days #9 09/14/24 mg tablet (Percocet) tabs Allergies Allergy/AdvReac Type Severity Reaction Status Date / Time aspirin [ASPIRIN] Allergy Severe Throat Verified 10/16/23 14:20 closes, eye itching, difficulty breathing buprenorphine [From Suboxone] Allergy Severe Throat Verified 10/16/23 14:20 closing, vomiting ibuprofen [IBUPROFEN] Allergy Severe Throat Verified 10/16/23 14:20 closes, eye itching, difficulty breathing ketorolac [From TORADOL] Allergy Severe Throat Verified 10/16/23 14:20 closes, eye itching, difficulty breathing methadone Allergy Severe Hard time Verified 10/16/23 14:20 breathing, my vital signs were dropping naloxone [From Suboxone] Allergy Severe Throat Verified 10/16/23 14:20 closing, vomiting NSAIDS (Non-Steroidal Allergy Severe Throat Verified 10/16/23 14:20 Anti-Inflamma closes, eye itching, difficulty breathing tramadol [TRAMADOL] Allergy Severe Rash, my Verified 10/16/23 14:20 throat was closing Beef Containing Products Allergy Hives Verified 10/16/23 14:20 duloxetine Allergy Rash Verified 10/16/23 14:20 gabapentin AdvReac Gastrointestinal Verified 10/16/23 14:20 Upset Review of Systems Review of Systems Narrative: General: Denies fever, chills, weight loss HEENT: Denies headache, eye drainage, eye irritation, head trauma, sore throat, voice change Cardiovascular: Positive chest pain, denies palpitations, tachycardia Respiratory: Denies any shortness of breath, cough, wheeze, stridor GI/: Positive for nausea, vomiting Denies any abdominal pain diarrhea, bright red blood per rectum, melanotic stools, urinary frequency, urinary retention, dysuria, hematuria MSK: Denies any joint pain, muscle pains, swelling Skin: Denies any rashes, lesions, discoloration Neuro: Denies any headache, lightheadedness, dizziness, fainting, weakness Psych: Denies SI/HI Patient History Medical History Anxiety Asthma COPD (chronic obstructive pulmonary disease) Coronary artery disease Depression Drug-seeking behavior Easy bruisability GERD (gastroesophageal reflux disease) Hearing loss Hepatic steatosis HLD (hyperlipidemia) HTN (hypertension) Myocardial infarction Osteoarthritis Other chronic pain Pain in right hip Peptic ulcer disease Prediabetes PTSD (post-traumatic stress disorder) Seizures Stroke (1999) Tinea pedis Surgical History History of bilateral knee replacement History of surgery on wrist Hx of colonoscopy Hx of tonsillectomy Social History household members: none Smoking Status: Former smoker alcohol intake: never Smoking Status: Former smoker alcohol intake frequency: holidays/special occasions only Substance Use Type: does not use Exam Initial Vital Signs Initial Vital Signs: Vital Signs Temperature 98.6 F 09/14/24 14:22 Pulse Rate 78 09/14/24 14:22 Respiratory Rate 18 09/14/24 14:22 Blood Pressure 144/70 H 09/14/24 14:22 Pulse Oximetry 99 09/14/24 14:22 Oxygen Delivery Method Room Air 09/14/24 14:22 Scores HEART Score Heart Score history: Slightly Suspicious Heart Score EKG: Normal Heart Score Age: > or = 65 years old Heart Score risk factors: 1-2 risk factors Heart Score troponin: < or = to normal limit Heart Score Total: 3 Course Orders Ordered: ED Orders 09/14/24 14:43 EKG-12 Lead Stat 09/14/24 17:10 Complete Blood Count AUTO DIFF Stat Comprehensive Metabolic Panel Stat Lipase Stat Troponin & CK Cardiac Panel Stat 09/14/24 17:12 XR chest 1V Stat EKG-12 Lead Stat 09/14/24 17:13 CT abdomen pelvis w con Stat 09/14/24 17:15 MAG [Magnesium] Stat Discontinued Medications Albuterol/Ipratropium (Albuterol/Ipratropium 3 Ml Ampul) 3 ml INH Q1H PRN PRN Reason: Shortness Of Breath Last Admin: 09/14/24 17:19 Dose: 3 ml Documented By: RENNY Diphenhydramine HCl (Diphenhydramine 50 Mg/Ml Vial) 25 mg IV NOW ONE Stop: 09/14/24 17:12 Last Admin: 09/14/24 17:21 Dose: 25 mg Documented By: AARON Metoclopramide HCl (Metoclopramide 10 Mg/2 Ml Inj) 10 mg IV NOW ONE Stop: 09/14/24 17:12 Last Admin: 09/14/24 17:21 Dose: 10 mg Documented By: AARON Oxycodone/Acetaminophen (Oxycodone/Acetaminophen 5/325 Tablet) 1 tab PO NOW ONE Stop: 09/14/24 18:52 Last Admin: 09/14/24 18:54 Dose: 1 tab Documented By: AARON Vital Signs Vital signs: Vital Signs - 8 hr 09/14/24 14:22 09/14/24 17:30 09/14/24 17:59 Temperature 98.6 F Pulse Rate 78 81 78 Respiratory Rate 18 18 26 H Blood Pressure 144/70 H Pulse Oximetry 99 99 98 Oxygen Delivery Method Room Air Room Air 09/14/24 18:00 09/14/24 18:00 09/14/24 18:30 Temperature Pulse Rate 81 80 Respiratory Rate 31 H 26 H Blood Pressure 140/72 Pulse Oximetry 98 98 Oxygen Delivery Method 09/14/24 18:30 Temperature Pulse Rate Respiratory Rate Blood Pressure 147/67 H Pulse Oximetry Oxygen Delivery Method MDM - Chest Pain Differential Diagnosis Differential diagnosis: Likely atypical chest pain, st elevation myocardial infarction, chest pain and other (Asthma exacerbation) Lab Data 09/14/24 17:10 09/14/24 17:10 Labs: Lab Results 09/14/24 09/14/24 Range/Units 17:10 17:15 WBC 7.3 (4.5-11.0) X10^3/uL RBC 4.48 (4.0-5.2) X10^6/uL Hgb 11.5 L (12.0-16.0) g/dL Hct 35.6 L (36-46) % MCV 79.5 L (80-100) fL MCH 25.6 L (26-34) PG MCHC 32.2 (30-36) % RDW 17.9 H (11.6-14.8) % Plt Count 425 H (150-400) X10^3/uL Neut % (Auto) 53.4 (50-75) % Lymph % (Auto) 32.6 (25-40) % [place] % (Auto) 9.0 (3-14) % Eos % (Auto) 4.1 H (2-4) % Baso % (Auto) 0.9 (0-2) % Neut # (Auto) 3900 (1376-5761) /uL Lymph # (Auto) 2400 (7255-2608) /uL [place] # (Auto) 700 (0-900) /uL Eos # (Auto) 300 (0-450) /uL Baso # (Auto) 100 (0-100) /uL Sodium 138 (137-145) mmol/L Potassium 3.7 (3.4-5.1) mmol/L Chloride 102 (98-107) mmol/L Carbon Dioxide 28 (22-32) mmol/L BUN 16 (7-17) mg/dL Creatinine 0.63 (0.52-1.04) mg/dL Estimated GFR > 60 (>60) mL/min BUN/Creatinine Ratio 25.4 H (6-22) Glucose 82 (80-110) mg/dL Calcium 9.1 (8.4-10.2) mg/dL Magnesium 1.9 (1.6-2.3) mg/dL Total Bilirubin 0.3 (0.2-1.3) mg/dL AST 33 (14-36) IU/L ALT 21 (<35) IU/L Alkaline Phosphatase 107 (38-126) U/L Total Creatine Kinase 67 (30-135) U/L Troponin I < 0.012 (0.01-0.034) ng/mL Total Protein 7.4 (6.3-8.2) g/dL Albumin 4.3 (3.5-5.0) g/dL Globulin 3.1 (1.7-4.1) g/dL Albumin/Globulin Ratio 1.4 (1.0-2.8) Lipase 61 (23-300) U/L Imaging Data Chest x-ray: Radiologist's Impression: [address] [address] XRay Report Signed Patient: Cira Stafford MR#: [id number] : 1960 Acct:[id number] Age/Sex: 64 / F Date of Service: 09/14/24 Loc: ED Accession Number: [id number] Procedure: XR chest 1V Ordering Provider: Bipin Patel D.O. PROCEDURE: XR CHEST 1V INDICATIONS: chest pain / sob TECHNIQUE: One view of the chest was acquired. COMPARISON: [facility], CR, XR CHEST 1 VIEW, 09/13/2024, 12:09. [facility], CR, XR CHEST 1V, 07/19/2020, 20:51. [facility], CR, XR CHEST 1V, 06/26/2020, 9:47. FINDINGS: Surgical changes and devices: None. Lungs and pleura: Lungs are clear. No pleural effusions or pneumothorax. Mediastinum: Mediastinal contours appear normal. Heart size is normal. Bones and chest wall: No suspicious bony lesions. Overlying soft tissues appear unremarkable. IMPRESSION: No acute cardiopulmonary abnormality is seen. CT scan - abdomen/pelvis: Radiologist's Impression: [address] [address] [address] Scan Report Signed Patient: Cira Stafford MR#: [id number] : 1960 Acct:[id number] Age/Sex: 64 / F Date of Service: 09/14/24 Loc: ED Accession Number: [id number] Procedure: CT abdomen pelvis w con Ordering Provider: Bipin Patel D.O. PROCEDURE: CT ABDOMEN PELVIS W CON INDICATIONS: abd nausea/ vomiting TECHNIQUE: After the administration of intravenous contrast, axial sections acquired from the lung bases to the pubic symphysis. Coronal and sagittal reformats were performed. For radiation dose reduction, the following was used: automated exposure control, adjustment of mA and/or kV according to patient size. COMPARISON: Outside Film, CT, CT ABDOMEN PELVIS WITH CONTRAST, 04/12/2024, 14:10. FINDINGS: Image quality: Diagnostic. Lower Chest: No significant findings. ABDOMEN: Liver: No solid mass. Gallbladder: No radiopaque gallstones or wall thickening. Biliary ducts: No biliary dilation. Pancreas: No ductal dilation. Spleen: Size is within normal limits. Adrenal Glands: No adrenal nodules. Kidneys and Ureters: No hydronephrosis. Right superior pole hyperdense renal lesion measuring 3.6 cm, most likely a hemorrhagic cyst. Similar left superior pole hyperdense lesion. Findings in appear significantly changed when compared to the CT from 04/12/2024. Stomach and Bowel: Mild colonic stool. Normal appendix. Small bowel loops and stomach are unremarkable. Peritoneum: No abnormal intraperitoneal fluid. No free air. Ventral Wall: No significant ventral hernia. Abdominal Nodes: No retroperitoneal or mesenteric adenopathy by size criteria. Vessels: Aorta and inferior vena cava are normal in size. PELVIS: Pelvic Organs: Unremarkable. Bladder: No bladder wall thickening, accounting for underdistention. Pelvic Nodes: No enlarged lymph nodes. Miscellaneous: No inguinal hernias are seen. Bones: No aggressive osseous abnormality. Mild chronic L1 compression fracture appears unchanged. Bilateral total hip arthroplasties with associated metal streak artifact that obscures adjacent structures despite the use of artifact reduction techniques. Degenerative changes are seen in the spine with prominent facet hypertrophy. Previously seen left psoas edema or hematoma has resolved. IMPRESSION: 1. No acute abnormality identified in the abdomen or pelvis. Normal appendix. 2. Bilateral hyperdense lesions at the superior poles of each kidney do not appear significantly changed, possibly hemorrhagic or proteinaceous cysts versus solid masses. Recommend follow-up outpatient renal ultrasound or renal protocol CT/MR for further characterization. ECG Data Attestation: I personally reviewed and interpreted this ECG as follows: Interpretation: EKG interpreted ED physician, sinus at 66 beats per minute, QTC 421, normal axis, nonspecific ST changes, no STEMI MDM Narrative Medical decision making narrative: Patient is a 64-year-old female history of COPD diabetes hyperlipidemia hypertension presents to the emergency department for multiple complaints. States that she has been having some mild cough and shortness of breath consistent with history of asthma, states that she has been using her inhaler with mild relief, however her major concern is that she has been feeling nauseous stating that she is not able to tolerate anything by mouth. Also complaining of some mild epigastric pain. She was seen at outside facility yesterday for the same complaints, had negative workup and was instructed to follow up with her primary care doctor. She was discharged home with Patt Mcakey and Jason. She states that she pick these up prior to arrival but states that she was still having symptoms or call your primary care doctor and was instructed to come into the ED for further evaluation and treatment. Here patient with CT scan without any acute intra-abdominal findings, incidental findings of kidney cysts were form to the patient and instructed to follow up with Nephrology. She was also treated with Solu-Medrol and DuoNeb here with improvement to her symptoms. She was also complaining of persistent left hip pain during her evaluation here. States that she has been having issues with this for ?awhile?. But denies any numbness weakness tingling to the lower extremity denies any traumas. She is able to stand bear weight ambulate on this. Patient with a heart score of 3, she will be sent home with analgesics antiemetics and instructed to follow up with her primary care doctor she was given strict return precautions and agrees with being discharged home with outpatient follow up Discharge Plan Departure Patient Disposition: Home Clinical Impression: Nausea & vomiting, Shortness of breath Activity Restrictions/Additional Instructions: Please follow-up with your primary care doctor Please read the discharge instructions sheet carefully and bring all papers to all doctor follow-up visits, as it may contain information that your doctor may want to see. Disease processes change and evolve, if your symptoms worsen or if you develop any new symptoms that are concerning to you please return for evaluation. Your evaluation today does not show any evidence of any life- threatening/serious illnesses requiring admission to the hospital or surgery. Please follow-up with your doctor for re-evaluation in approximately 1 day. Seek immediate medical attention for any worrisome symptoms. Prescriptions: New oxycodone-acetaminophen [Percocet] 5-325 mg tablet 1 tab PO Q8H PRN (Reason: pain) 3 Days Qty: 9 0RF metoclopramide HCl [Reglan] 10 mg tablet 10 mg PO BID 3 Days Qty: 6 0RF No Action albuterol sulfate 90 mcg/actuation Hfa Aerosol Inhaler 2 puff Inhalation Q4H PRN (Reason: Shortness Of Breath) clotrimazole 1 % cream 1 applic Topical Q12H PRN (Reason: Rash) Patient Comments: has not taken in month of May. metformin 500 mg Tablet 500 mg PO QAM trazodone 50 mg Tablet 50 mg PO BEDTIME PRN (Reason: Insomnia) hydroxyzine HCl 25 mg Tablet 25 mg PO TID PRN (Reason: Anxiety) losartan 100 mg Tablet 100 mg PO QAM sertraline 50 mg Tablet 50 mg PO QAM hydrochlorothiazide 12.5 mg Tablet 25 mg PO QAM clopidogrel 75 mg Tablet 75 mg PO DAILY Rx Instructions: takes in the evening cyclobenzaprine 5 mg Tablet 5 mg PO TID PRN (Reason: muscle spasms) Qty: 10 0RF atorvastatin 40 mg tablet 80 mg PO BEDTIME lidocaine 5 % Adhesive Patch,Medicated 1 patch TOPICAL DAILY PRN (Reason: Pain) Rx Instructions: leave on most painful area for up to 12 hrs acetaminophen 325 mg Tablet 650 mg PO Q6HR Qty: 60 0RF polyethylene glycol 3350 17 gram Powder In Packet 17 gm PO DAILY PRN (Reason: Constipation) Qty: 20 0RF oxycodone 5 mg Tablet 5 mg PO Q3HR PRN (Reason: Pain, Moderate (4-6)) Qty: 60 0RF carvedilol 12.5 mg tablet 25 mg PO BID Patient Comments: TAKE 1 TABLET BY MOUTH 2 TIMES A DAY WITH MEALS albuterol sulfate 2.5 mg /3 mL (0.083 %) Solution For Nebulization 2.5 mg inhalation Q4H PRN (Reason: Wheezing) Referrals: Jairo Hart MD [Primary Care Provider] - Stand Alone Forms: Patient Portal/API
--- NOTE | 2024-09-14 17:12 | DI.RAD.S_ITS ---
PROCEDURE: XR CHEST 1V INDICATIONS: chest pain / sob TECHNIQUE: One view of the chest was acquired. COMPARISON: [facility], CR, XR CHEST 1 VIEW, 09/13/2024, 12:09. [facility], CR, XR CHEST 1V, 07/19/2020, 20:51. [facility], CR, XR CHEST 1V, 06/26/2020, 9:47. FINDINGS: Surgical changes and devices: None. Lungs and pleura: Lungs are clear. No pleural effusions or pneumothorax. Mediastinum: Mediastinal contours appear normal. Heart size is normal. Bones and chest wall: No suspicious bony lesions. Overlying soft tissues appear unremarkable. IMPRESSION: No acute cardiopulmonary abnormality is seen. Approved by: Robert Daugehrty M.D. on 09/14/2024 at 18:22
--- NOTE | 2024-09-14 17:13 | DI.CT.S_ITS ---
PROCEDURE: CT ABDOMEN PELVIS W CON INDICATIONS: abd nausea/ vomiting TECHNIQUE: After the administration of intravenous contrast, axial sections acquired from the lung bases to the pubic symphysis. Coronal and sagittal reformats were performed. For radiation dose reduction, the following was used: automated exposure control, adjustment of mA and/or kV according to patient size. COMPARISON: Outside Film, CT, CT ABDOMEN PELVIS WITH CONTRAST, 04/12/2024, 14:10. FINDINGS: Image quality: Diagnostic. Lower Chest: No significant findings. ABDOMEN: Liver: No solid mass. Gallbladder: No radiopaque gallstones or wall thickening. Biliary ducts: No biliary dilation. Pancreas: No ductal dilation. Spleen: Size is within normal limits. Adrenal Glands: No adrenal nodules. Kidneys and Ureters: No hydronephrosis. Right superior pole hyperdense renal lesion measuring 3.6 cm, most likely a hemorrhagic cyst. Similar left superior pole hyperdense lesion. Findings in appear significantly changed when compared to the CT from 04/12/2024. Stomach and Bowel: Mild colonic stool. Normal appendix. Small bowel loops and stomach are unremarkable. Peritoneum: No abnormal intraperitoneal fluid. No free air. Ventral Wall: No significant ventral hernia. Abdominal Nodes: No retroperitoneal or mesenteric adenopathy by size criteria. Vessels: Aorta and inferior vena cava are normal in size. PELVIS: Pelvic Organs: Unremarkable. Bladder: No bladder wall thickening, accounting for underdistention. Pelvic Nodes: No enlarged lymph nodes. Miscellaneous: No inguinal hernias are seen. Bones: No aggressive osseous abnormality. Mild chronic L1 compression fracture appears unchanged. Bilateral total hip arthroplasties with associated metal streak artifact that obscures adjacent structures despite the use of artifact reduction techniques. Degenerative changes are seen in the spine with prominent facet hypertrophy. Previously seen left psoas edema or hematoma has resolved. IMPRESSION: 1. No acute abnormality identified in the abdomen or pelvis. Normal appendix. 2. Bilateral hyperdense lesions at the superior poles of each kidney do not appear significantly changed, possibly hemorrhagic or proteinaceous cysts versus solid masses. Recommend follow-up outpatient renal ultrasound or renal protocol CT/MR for further characterization. Approved by: Robert Daugherty M.D. on 09/14/2024 at 18:40
[2024-09-14] MEDS: ALBUTEROL/IPRATROPIUM 3 ML AMPUL INH (17:19)
[2024-09-14] MEDS: METOCLOPRAMIDE 10 MG/2 ML INJ IV (17:21)
[2024-09-14] MEDS: diphenhydrAMINE 50 MG/ML VIAL 25 MG IV (17:21)
[2024-09-14 17:22] LABS: Add Manual Diff / Slide Review NO; Basophils Absolute Auto 100 /uL (0-100); Basophils Percent Auto 0.9 % (0-2); Eosinophils Absolute Auto 300 /uL (0-450); Eosinophils Percent Auto 4.1 % (2-4); Hematocrit 35.6 % (36-46); Hemoglobin 11.5 g/dL (12.0-16.0); Lymphocytes Absolute Auto 2400 /uL (1100-4500); Lymphocytes Percent Auto 32.6 % (25-40); Mean Corpuscular HGB Conc 32.2 % (30-36); Mean Corpuscular Hemoglobin 25.6 PG (26-34); Mean Corpuscular Volume 79.5 fL (80-100); Monocytes Absolute Auto 700 /uL (0-900); Neutrophils Absolute Auto 3900 /uL (1500-7000); Neutrophils Percent Auto 53.4 % (50-75); Platelet Count 425 X10^3/uL (150-400); Red Blood Cell Count 4.48 X10^6/uL (4.0-5.2); Red Cell Distribution Width 17.9 % (11.6-14.8); White Blood Cell Count 7.3 X10^3/uL (4.5-11.0)
[2024-09-14 17:30] VITALS: PULSE 81; RESP 18; O2SAT 99
[2024-09-14 17:35] LABS: Alanine Aminotransferase 21 IU/L (<35); Albumin 4.3 g/dL (3.5-5.0); Albumin Globulin Ratio 1.4 (1.0-2.8); Alkaline Phosphatase 107 U/L (38-126); Aspartate Aminotransferase 33 IU/L (14-36); BUN Creatinine Ratio 25.4 (6-22); Bilirubin Total 0.3 mg/dL (0.2-1.3); Blood Urea Nitrogen 16 mg/dL (7-17); Calcium 9.1 mg/dL (8.4-10.2); Carbon Dioxide 28 mmol/L (22-32); Chloride 102 mmol/L (98-107); Creatine Kinase 67 U/L (30-135); Estimated Glomerular Filt Rate > 60 mL/min (>60); Globulin 3.1 g/dL (1.7-4.1); Glucose 82 mg/dL (80-110); HEMOLYSIS 16 (0-50); Lipase 61 U/L (23-300); Potassium 3.7 mmol/L (3.4-5.1); Sodium 138 mmol/L (137-145); Total Protein 7.4 g/dL (6.3-8.2)
[2024-09-14 17:36] LABS: Magnesium 1.9 mg/dL (1.6-2.3)
[2024-09-14 17:47] LABS: Troponin I < 0.012 ng/mL (0.01-0.034)
[2024-09-14 17:59] VITALS: PULSE 78; RESP 26; O2SAT 98
[2024-09-14 18:00] VITALS: BP 140/72; PULSE 81; RESP 31; O2SAT 98
[2024-09-14 18:30] VITALS: BP 147/67; PULSE 80; RESP 26; O2SAT 98
[2024-09-14] MEDS: OXYCODONE/ACETAMINOPHEN 5/325 TABLET 1 TAB PO (18:54)
== END 2024-09-14 19:03 | disposition home or self-care (01) ==
PROVIDERS: Emergency Provider Student in an Organized Health Care Education/Training Program; PCP Student in an Organized Health Care Education/Training Program
DX: R11.2 Nausea with vomiting, unspecified (principal); R06.02 Shortness of breath; R07.9 Chest pain, unspecified; R05.9 Cough, unspecified; I10 Essential (primary) hypertension; J44.9 Chronic obstructive pulmonary disease, unspecified; I25.10 Atherosclerotic heart disease of native coronary artery without angina pectoris
CPT/HCPCS: 36415; 71045; 74177; 80053; 82550; 83690; 83735; 84484; 85025; 93005; 94640; 96374; 96375; 99284; J1200; J2765; Q9967

== ENCOUNTER 2024-10-13 13:18 | Emergency (ER) | payer MEDICAID, SELFPAY ==
[2022-04-22 17:18] VITALS: BMI 32.5
[2024-10-13] VITALS (15 sets, daily range): BP systolic 154–200; BP diastolic 66–80; PULSE 69–80; RESP 20–51; TEMP 36.9; O2SAT 97–100; BMI 35.9
--- NOTE | 2024-10-13 13:37 | DI.RAD.S_ITS ---
PROCEDURE: XR CHEST 1V INDICATIONS: Shortness of breath TECHNIQUE: One view of the chest was acquired. COMPARISON: [facility], CT, CT HEAD/BRAIN WO CON, 10/13/2024, 14:11. [facility], CT, CT ANGIO CHEST PE, 07/20/2024, 19:58. [facility], CR, XR CHEST 1 VIEW, 09/13/2024, 12:09. [facility], CR, XR CHEST 1V, 09/14/2024, 17:43. FINDINGS: Surgical changes and devices: None. Lungs and pleura: An incomplete inspiratory result is noted, causing a crowded appearance to the lung markings. No focal infiltrates are seen. No pneumothorax or significant pleural effusions are seen. Mediastinum: The cardiac contours are within normal limits. The aorta demonstrates calcification and tortuosity. Bones and chest wall: No suspicious bony lesions. Age-appropriate bony degenerative changes are seen. Overlying soft tissues appear unremarkable. IMPRESSION: Low lung volumes, without an acute abnormality seen by plain film. Dictated by: Chi Barrett M.D. on 10/13/2024 at 15:06 Approved by: Chi Barrett M.D. on 10/13/2024 at 15:07
--- NOTE | 2024-10-13 13:44 | EKG_ITS ---
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
[2024-10-13 13:51] LABS: Add Manual Diff / Slide Review NO; Basophils Absolute Auto 100 /uL (0-100); Basophils Percent Auto 1.5 % (0-2); Eosinophils Absolute Auto 200 /uL (0-450); Eosinophils Percent Auto 3.1 % (2-4); Hematocrit 36.4 % (36-46); Hemoglobin 11.5 g/dL (12.0-16.0); Lymphocytes Absolute Auto 2200 /uL (1100-4500); Mean Corpuscular HGB Conc 31.7 % (30-36); Mean Corpuscular Hemoglobin 25.6 PG (26-34); Mean Corpuscular Volume 80.8 fL (80-100); Monocytes Absolute Auto 600 /uL (0-900); Monocytes Percent Auto 7.9 % (3-14); Neutrophils Absolute Auto 4600 /uL (1500-7000); Neutrophils Percent Auto 59.5 % (50-75); Platelet Count 404 X10^3/uL (150-400); Red Cell Distribution Width 17.4 % (11.6-14.8); White Blood Cell Count 7.7 X10^3/uL (4.5-11.0)
[2024-10-13 14:02] LABS: Alanine Aminotransferase 32 IU/L (<35); Albumin 4.3 g/dL (3.5-5.0); Albumin Globulin Ratio 1.3 (1.0-2.8); Alkaline Phosphatase 119 U/L (38-126); Aspartate Aminotransferase 36 IU/L (14-36); BUN Creatinine Ratio 21.5 (6-22); Bilirubin Total 0.3 mg/dL (0.2-1.3); Blood Urea Nitrogen 14 mg/dL (7-17); Carbon Dioxide 27 mmol/L (22-32); Chloride 103 mmol/L (98-107); Estimated Glomerular Filt Rate > 60 mL/min (>60); Globulin 3.2 g/dL (1.7-4.1); Glucose 97 mg/dL (80-110); HEMOLYSIS < 15 (0-50); Sodium 138 mmol/L (137-145); Total Protein 7.5 g/dL (6.3-8.2)
[2024-10-13] MEDS: ALBUTEROL 2.5 MG/3 ML NEB (ADULT) INH (14:04)
--- NOTE | 2024-10-13 14:04 | ED.CHESTPAIN ---
HPI - Chest Pain General Chief Complaint: Chest Pain Stated Complaint: HBP, chest and headache, sent by PCP Time Seen by Provider: 10/13/24 13:41 Source: patient Mode of arrival: Wheelchair Limitations: no limitations History of Present Illness HPI narrative: 64-year-old female who was sent by her primary care doctor's office for evaluation of high blood pressure, shortness of breath and headache. Patient has a history of high blood pressure. States she has been taking it over the past couple days and the systolic blood pressures have been in the 180s which is not normal for her. She states she has been having some chest tightness. Has a history of COPD. His wheezing upon arrival. Not hypoxic. She also states that she feels like her ?head is going to explode? she was having a slight headache now. She has been taking all of her medications. No changes to any neurologic symptoms to her upper and lower extremities. Related Data Home Medications Medication Instructions Recorded Confirmed albuterol sulfate 90 mcg/actuation 2 puff inhalation Q4H PRN 04/29/18 10/16/23 aerosol inhaler Shortness Of Breath clotrimazole 1 % topical cream 1 applic topical Q12H PRN Rash 04/29/18 10/16/23 albuterol sulfate 2.5 mg/3 mL 2.5 mg inhalation Q4H PRN Wheezing 12/07/19 10/16/23 (0.083 %) solution for nebulization carvedilol 12.5 mg tablet 25 mg PO BID 12/07/19 10/16/23 hydrochlorothiazide 12.5 mg tablet 25 mg PO QAM 06/26/20 10/16/23 hydroxyzine HCl 25 mg tablet 25 mg PO TID PRN Anxiety 06/26/20 10/16/23 losartan 100 mg tablet 100 mg PO QAM 06/26/20 10/16/23 metformin 500 mg tablet 500 mg PO QAM 06/26/20 10/16/23 sertraline 50 mg tablet 50 mg PO QAM 06/26/20 10/16/23 trazodone 50 mg tablet 50 mg PO BEDTIME PRN Insomnia 06/26/20 10/16/23 clopidogrel 75 mg tablet 75 mg PO DAILY 06/29/20 10/16/23 lidocaine 5 % topical patch 1 patch topical DAILY PRN Pain 02/10/22 10/16/23 atorvastatin 40 mg tablet 80 mg PO BEDTIME 10/16/23 10/16/23 Previous Rx's Medication Instructions Recorded cyclobenzaprine 5 mg tablet 5 mg PO TID PRN muscle spasms #10 06/29/20 tabs acetaminophen 325 mg tablet 650 mg (2 x 325 mg) PO Q6HR #60 04/23/22 tabs oxycodone 5 mg tablet 5 mg PO Q3HR PRN Pain, Moderate 04/23/22 (4-6) #60 tabs polyethylene glycol 3350 17 gram 17 gm PO DAILY PRN Constipation 04/23/22 oral powder packet #20 ea Allergies Allergy/AdvReac Type Severity Reaction Status Date / Time aspirin [ASPIRIN] Allergy Severe Throat Verified 10/16/23 14:20 closes, eye itching, difficulty breathing buprenorphine [From Suboxone] Allergy Severe Throat Verified 10/16/23 14:20 closing, vomiting ibuprofen [IBUPROFEN] Allergy Severe Throat Verified 10/16/23 14:20 closes, eye itching, difficulty breathing ketorolac [From TORADOL] Allergy Severe Throat Verified 10/16/23 14:20 closes, eye itching, difficulty breathing methadone Allergy Severe Hard time Verified 10/16/23 14:20 breathing, my vital signs were dropping naloxone [From Suboxone] Allergy Severe Throat Verified 10/16/23 14:20 closing, vomiting NSAIDS (Non-Steroidal Allergy Severe Throat Verified 10/16/23 14:20 Anti-Inflamma closes, eye itching, difficulty breathing tramadol [TRAMADOL] Allergy Severe Rash, my Verified 10/16/23 14:20 throat was closing Beef Containing Products Allergy Hives Verified 10/16/23 14:20 duloxetine Allergy Rash Verified 10/16/23 14:20 gabapentin AdvReac Gastrointestinal Verified 10/16/23 14:20 Upset Review of Systems Review of Systems ROS Unobtainable: All systems reviewed & are unremarkable except as noted in HPI and below Patient History Medical History Myocardial infarction Hepatic steatosis Drug-seeking behavior Seizures Peptic ulcer disease PTSD (post-traumatic stress disorder) Depression Easy bruisability Osteoarthritis GERD (gastroesophageal reflux disease) HLD (hyperlipidemia) HTN (hypertension) Asthma Hearing loss Prediabetes Other chronic pain Tinea pedis Pain in right hip Anxiety Coronary artery disease COPD (chronic obstructive pulmonary disease) Stroke (1999) Surgical History History of bilateral knee replacement History of surgery on wrist Hx of colonoscopy Hx of tonsillectomy Social History household members: none Smoking Status: Former smoker alcohol intake: never Smoking Status: Former smoker alcohol intake frequency: holidays/special occasions only Substance Use Type: does not use Exam Initial Vital Signs Initial Vital Signs: Vital Signs Temperature 98.4 F 10/13/24 13:23 Pulse Rate 70 10/13/24 13:23 Respiratory Rate 26 H 10/13/24 13:23 Blood Pressure 154/66 H 10/13/24 13:23 Pulse Oximetry 100 10/13/24 13:23 Oxygen Delivery Method Room Air 10/13/24 13:23 Const General: cooperative, comfortable and No ill appearing HENMT Head: normal to inspection and normocephalic Resp Effort & Inspection: normal respiratory effort Auscultation: diminished lung sounds and wheezes Cardio Rate: regular rate Rhythm: regular rhythm GI Inspection: normal to inspection and non-distended Skin General: no rashes or lesions noted Neuro General: patient alert, patient awake, patient oriented x3 and moves all extremities Speech: speech normal Extrem General: capillary refill normal Course Orders Ordered: ED Orders 10/13/24 13:37 XR chest 1V Stat EKG-12 Lead Stat Measure peak expiratory flow ONCE RT Consult Eval and Treat NOW 10/13/24 13:41 Complete Blood Count AUTO DIFF Stat Comprehensive Metabolic Panel Stat NT-proBNP (BNP-Adult 18+) Stat Troponin I Stat 10/13/24 14:03 CT head/brain wo con Stat Albuterol (Albuterol 2.5 Mg/3 Ml Neb (Adult)) 2.5 mg INH [id number] PRN PRN Reason: Shortness Of Breath Last Admin: 10/13/24 14:04 Dose: 2.5 mg Documented By: SAT Discontinued Medications Acetaminophen (Acetaminophen 325 Mg Tablet) 650 mg PO NOW ONE Stop: 10/13/24 14:35 Last Admin: 10/13/24 15:27 Dose: Not Given Documented By: MPO Oxycodone HCl (Oxycodone 5 Mg/5 Ml Oral Solution) 5 mg PO NOW ONE Stop: 10/13/24 15:01 Last Admin: 10/13/24 15:28 Dose: Not Given Documented By: ROBERT Oxycodone HCl (Oxycodone Ir 5 Mg Tablet) 5 mg PO NOW ONE Stop: 10/13/24 15:20 Last Admin: 10/13/24 15:23 Dose: 5 mg Documented By: ROBERT Prednisone (Prednisone 20 Mg Tablet) 20 mg PO NOW ONE Stop: 10/13/24 15:32 Last Admin: 10/13/24 15:47 Dose: 20 mg Documented By: ROBERT Vital Signs Vital signs: Vital Signs - 8 hr 10/13/24 13:23 10/13/24 14:06 Temperature 98.4 F Pulse Rate 70 69 Respiratory Rate 26 H 20 Blood Pressure 154/66 H Pulse Oximetry 100 99 Oxygen Delivery Method Room Air Room Air Oxygen Flow Rate 0 MDM - Chest Pain Lab Data Attestation: I reviewed the patient's lab results. 10/13/24 13:41 10/13/24 13:41 Labs: Lab Results 10/13/24 Range/Units 13:41 WBC 7.7 (4.5-11.0) X10^3/uL RBC 4.50 (4.0-5.2) X10^6/uL Hgb 11.5 L (12.0-16.0) g/dL Hct 36.4 (36-46) % MCV 80.8 (80-100) fL MCH 25.6 L (26-34) PG MCHC 31.7 (30-36) % RDW 17.4 H (11.6-14.8) % Plt Count 404 H (150-400) X10^3/uL Neut % (Auto) 59.5 (50-75) % Lymph % (Auto) 28.0 (25-40) % [place] % (Auto) 7.9 (3-14) % Eos % (Auto) 3.1 (2-4) % Baso % (Auto) 1.5 (0-2) % Neut # (Auto) 4600 (4839-8549) /uL Lymph # (Auto) 2200 (1938-2292) /uL [place] # (Auto) 600 (0-900) /uL Eos # (Auto) 200 (0-450) /uL Baso # (Auto) 100 (0-100) /uL Sodium 138 (137-145) mmol/L Potassium 4.0 (3.4-5.1) mmol/L Chloride 103 (98-107) mmol/L Carbon Dioxide 27 (22-32) mmol/L BUN 14 (7-17) mg/dL Creatinine 0.65 (0.52-1.04) mg/dL Estimated GFR > 60 (>60) mL/min BUN/Creatinine Ratio 21.5 (6-22) Glucose 97 (80-110) mg/dL Lactate Cancelled Calcium 9.0 (8.4-10.2) mg/dL Total Bilirubin 0.3 (0.2-1.3) mg/dL AST 36 (14-36) IU/L ALT 32 (<35) IU/L Alkaline Phosphatase 119 (38-126) U/L Troponin I < 0.012 (0.01-0.034) ng/mL NT-Pro-B Natriuret Pep 154 H (<125) pg/mL Total Protein 7.5 (6.3-8.2) g/dL Albumin 4.3 (3.5-5.0) g/dL Globulin 3.2 (1.7-4.1) g/dL Albumin/Globulin Ratio 1.3 (1.0-2.8) Imaging Data CT scan - head: Radiologist's Impression: PROCEDURE: CT HEAD/BRAIN WO CON INDICATIONS: HTN and headache and hx of CVA TECHNIQUE: Noncontrast 4.5 mm thick angled axial sections acquired from the foramen magnum to the vertex, with coronal and sagittal reformats. For radiation dose reduction, the following was used: automated exposure control, adjustment of mA and/or kV according to patient size. COMPARISON: [facility], CR, XR CHEST 1V, 10/13/2024, 13:53. [facility], CT, CT HEAD WITHOUT CONTRAST, 05/03/2024, 20:43. [facility], MR, MR BRAIN WITHOUT CONTRAST, 11/17/2023, 20:59. [facility], CT, CT HEAD/BRAIN WO CON, 01/30/2020, 20:13. FINDINGS: Image quality: Diagnostic. CSF spaces: Basal cisterns are patent. No extra-axial fluid collections. The ventricles are symmetric in size and shape. Brain: No intracranial bleeds or masses. There is cerebral volume loss for age, with resultant ventricular and sulcal prominence. There are periventricular and deep white matter chronic small vessel ischemic changes. Few lacunar infarcts can be seen, including involving the deep white matter of the left frontal lobe. There is intracranial internal carotid artery atherosclerosis. Skull and face: Calvarium and visualized facial bones appear intact, without suspicious lesions. Sinuses: Visualized sinuses and mastoids are clear. IMPRESSION: No acute intracranial hemorrhage is seen. No acute intracranial pathology. Areas of remote lacunar infarcts can be seen. Chest x-ray: Radiologist's Impression: PROCEDURE: XR CHEST 1V INDICATIONS: Shortness of breath TECHNIQUE: One view of the chest was acquired. COMPARISON: [facility], CT, CT HEAD/BRAIN WO CON, 10/13/2024, 14:11. [facility], CT, CT ANGIO CHEST PE, 07/20/2024, 19:58. [facility], CR, XR CHEST 1 VIEW, 09/13/2024, 12:09. [facility], CR, XR CHEST 1V, 09/14/2024, 17:43. FINDINGS: Surgical changes and devices: None. Lungs and pleura: An incomplete inspiratory result is noted, causing a crowded appearance to the lung markings. No focal infiltrates are seen. No pneumothorax or significant pleural effusions are seen. Mediastinum: The cardiac contours are within normal limits. The aorta demonstrates calcification and tortuosity. Bones and chest wall: No suspicious bony lesions. Age-appropriate bony degenerative changes are seen. Overlying soft tissues appear unremarkable. IMPRESSION: Low lung volumes, without an acute abnormality seen by plain film. ECG Data Attestation: I personally reviewed and interpreted this ECG as follows: Interpretation: Sinus rhythm Ventricular rate of 68 Normal axis Normal QRS Normal QTC No ST T wave changes MDM Narrative Medical decision making narrative: Patient was not clinically in heart failure. Troponin is negative, BNP is unremarkable. Patient was not in renal failure. No indication of an acute CVA or intracranial hemorrhage. I did discuss this with her. We did discuss her high blood pressure and how she should be taking her blood pressure at home on a regular basis. Discussed how she needs to talk with her primary doctor about potentially changing any medications. She was given return precautions. She expressed understanding and agreement. Discharge Plan Departure Patient Disposition: Home Clinical Impression: Hypertension Instructions: Essential Hypertension Activity Restrictions/Additional Instructions: Recommend that you continue to take all of your medications as directed. I do recommend that you take your blood pressure at home on a regular basis. You may need to talk with your primary doctor about changes to your medications if you remain persistently elevated. Return to the emergency department for new symptoms. Prescriptions: No Action albuterol sulfate 90 mcg/actuation Hfa Aerosol Inhaler 2 puff Inhalation Q4H PRN (Reason: Shortness Of Breath) clotrimazole 1 % cream 1 applic Topical Q12H PRN (Reason: Rash) Patient Comments: has not taken in month of May. metformin 500 mg Tablet 500 mg PO QAM trazodone 50 mg Tablet 50 mg PO BEDTIME PRN (Reason: Insomnia) hydroxyzine HCl 25 mg Tablet 25 mg PO TID PRN (Reason: Anxiety) losartan 100 mg Tablet 100 mg PO QAM sertraline 50 mg Tablet 50 mg PO QAM hydrochlorothiazide 12.5 mg Tablet 25 mg PO QAM clopidogrel 75 mg Tablet 75 mg PO DAILY Rx Instructions: takes in the evening cyclobenzaprine 5 mg Tablet 5 mg PO TID PRN (Reason: muscle spasms) Qty: 10 0RF atorvastatin 40 mg tablet 80 mg PO BEDTIME lidocaine 5 % Adhesive Patch,Medicated 1 patch TOPICAL DAILY PRN (Reason: Pain) Rx Instructions: leave on most painful area for up to 12 hrs acetaminophen 325 mg Tablet 650 mg PO Q6HR Qty: 60 0RF polyethylene glycol 3350 17 gram Powder In Packet 17 gm PO DAILY PRN (Reason: Constipation) Qty: 20 0RF oxycodone 5 mg Tablet 5 mg PO Q3HR PRN (Reason: Pain, Moderate (4-6)) Qty: 60 0RF carvedilol 12.5 mg tablet 25 mg PO BID Patient Comments: TAKE 1 TABLET BY MOUTH 2 TIMES A DAY WITH MEALS albuterol sulfate 2.5 mg /3 mL (0.083 %) Solution For Nebulization 2.5 mg inhalation Q4H PRN (Reason: Wheezing) Referrals: Jairo Hart MD [Primary Care Provider] - Stand Alone Forms: Patient Portal/API/Survey
[2024-10-13 14:15] LABS: NT-proBNP (BNP-Adult 18+) 154 pg/mL (<125); Troponin I < 0.012 ng/mL (0.01-0.034)
[2024-10-13] MEDS: OXYCODONE IR 5 MG TABLET PO (15:23)
[2024-10-13] MEDS: predniSONE 20 MG TABLET PO (15:47)
--- NOTE | 2024-10-13 15:56 | PC.NURSE ---
Pt up to [facility]sc with stand by assist. Very SOB & wheezing upon exertion. Dr Santizo notified.
== END 2024-10-13 16:56 | disposition home or self-care (01) ==
PROVIDERS: Emergency Provider Emergency Medicine; PCP Student in an Organized Health Care Education/Training Program
DX: I10 Essential (primary) hypertension (principal); R06.02 Shortness of breath; R51.9 Headache, unspecified; R07.9 Chest pain, unspecified
CPT/HCPCS: 36415; 70450; 71045; 80053; 83880; 84484; 85025; 93005; 94640; 99284; J7613

== ENCOUNTER 2024-11-25 17:33 | Inpatient (IN) | payer MEDICAID, SELFPAY ==
[2022-04-22 17:18] VITALS: BMI 32.5
[2024-11-25] VITALS (21 sets, daily range): BP systolic 136–187; BP diastolic 61–89; PULSE 88–110; RESP 19–39; TEMP 36.5–36.7; O2SAT 96–100; BMI 34.0
--- NOTE | 2024-11-25 17:50 | DI.RAD.S_ITS ---
PROCEDURE: XR CHEST 1V INDICATIONS: Shortness of breath TECHNIQUE: One view of the chest was acquired. COMPARISON: [facility], , XR CHEST 1V, 10/13/2024, 13:53. [facility], CR, XR CHEST 1V, 09/14/2024, 17:43. FINDINGS: Surgical changes and devices: None. Lungs and pleura: Lungs are clear. No pleural effusions or pneumothorax. Mediastinum: Mediastinal contours appear normal. Heart size is normal. Bones and chest wall: No suspicious bony lesions. Overlying soft tissues appear unremarkable. IMPRESSION: No acute cardiopulmonary abnormality is seen. Dictated by: Jesus Odonnell M.D. on 11/25/2024 at 18:50 Approved by: Jesus Odonnell M.D. on 11/25/2024 at 18:50
--- NOTE | 2024-11-25 17:54 | EKG_ITS ---
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
[2024-11-25 18:07] LABS: Add Manual Diff / Slide Review NO; Basophils Absolute Auto 100 /uL (0-100); Basophils Percent Auto 1.4 % (0-2); Eosinophils Absolute Auto 200 /uL (0-450); Eosinophils Percent Auto 1.9 % (2-4); Hematocrit 37.1 % (36-46); Hemoglobin 11.9 g/dL (12.0-16.0); Lymphocytes Absolute Auto 2500 /uL (1100-4500); Mean Corpuscular HGB Conc 32.2 % (30-36); Mean Corpuscular Hemoglobin 26.2 PG (26-34); Mean Corpuscular Volume 81.5 fL (80-100); Monocytes Absolute Auto 600 /uL (0-900); Neutrophils Absolute Auto 5300 /uL (1500-7000); Neutrophils Percent Auto 60.7 % (50-75); Platelet Count 438 X10^3/uL (150-400); Red Blood Cell Count 4.55 X10^6/uL (4.0-5.2); Red Cell Distribution Width 17.5 % (11.6-14.8); White Blood Cell Count 8.7 X10^3/uL (4.5-11.0)
[2024-11-25] MEDS: ALBUTEROL/IPRATROPIUM 3 ML AMPUL INH (18:11)
[2024-11-25 18:14] LABS: INR 0.9 (0.9-1.3); Prothrombin Time 10.4 SECONDS (9.4-12.5)
[2024-11-25 18:22] LABS: Alanine Aminotransferase 46 IU/L (<35); Albumin 4.2 g/dL (3.5-5.0); Albumin Globulin Ratio 1.4 (1.0-2.8); Alkaline Phosphatase 132 U/L (38-126); Aspartate Aminotransferase 38 IU/L (14-36); BUN Creatinine Ratio 37.7 (6-22); Bilirubin Total 0.4 mg/dL (0.2-1.3); Blood Urea Nitrogen 26 mg/dL (7-17); Calcium 8.8 mg/dL (8.4-10.2); Carbon Dioxide 25 mmol/L (22-32); Chloride 106 mmol/L (98-107); Estimated Glomerular Filt Rate > 60 mL/min (>60); Globulin 3.1 g/dL (1.7-4.1); Glucose 102 mg/dL (80-110); HEMOLYSIS < 15 (0-50); Potassium 3.5 mmol/L (3.4-5.1); Sodium 138 mmol/L (137-145); Total Protein 7.3 g/dL (6.3-8.2)
[2024-11-25 18:33] LABS: NT-proBNP (BNP-Adult 18+) 131 pg/mL (<125); Troponin I < 0.012 ng/mL (0.01-0.034)
[2024-11-25 19:01] LABS: Adenovirus Not Detected (Not Detect); B. parapertussis Not Detected (Not Detecte); Bordetella pertussis Not Detected (Not Detect); Chlamydophila pneumoniae Not Detected (Not Detect); Coronavirus 229E Not Detected (Not Detect); Coronavirus HKU1 Not Detected (Not Detect); Coronavirus NL 63 Not Detected (Not Detect); Coronavirus OC43 Not Detected (Not Detect); Human Metapneumovirus Not Detected (Not Detect); Human Rhinovirus/Enterovirus Not Detected (Not Detect); Influenza A Not Detected (Not Detect); Influenza B Not Detected (Not Detect); Mycoplasma pneumoniae Not Detected (Not Detect); Parainfluenza Virus 1 Not Detected (Not Detect); Parainfluenza Virus 2 Not Detected (Not Detect); Parainfluenza Virus 3 Not Detected (Not Detect); Parainfluenza Virus 4 Not Detected (Not Detect); Respiratory Syncytial Virus Not Detected (Not Detect); SARS- CoV-2 Not Detected (Not Detecte)
--- NOTE | 2024-11-25 19:10 | ED_ITS ---
HPI - General Adult General Chief complaint: Shortness of Breath/Dyspnea Stated complaint: Chest Pain x5 Days Time Seen by Provider: 11/25/24 17:57 Source: patient and EMS Mode of arrival: EMS History of Present Illness HPI narrative: Patient is a 64-year-old female. History of COPD, coronary artery disease, [id number] diabetes, hypertension, high cholesterol who was seen at an outside facility within the past 24 hours. Diagnosed with a COPD exacerbation. Was discharged home on steroids and antibiotics. 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 States she really was not feeling better prior to her discharge from the other facility. Her shortness of breath was getting worse. She was starting to have quite a bit of chest discomfort because of the breathing. No fevers he was having a cough. Is having a productive cough. Her albuterol at home was not helping symptoms which is what prompted her to contact EMS to bring her into the emergency department today. She denies any fevers. No abdominal pain. No change in bowel habits or urine. No lower extremity swelling. Related Data Home Medications Medication Instructions Recorded Confirmed albuterol sulfate 90 mcg/actuation 2 puff inhalation Q4H PRN 04/29/18 10/16/23 aerosol inhaler Shortness Of Breath clotrimazole 1 % topical cream 1 applic topical Q12H PRN Rash 04/29/18 10/16/23 albuterol sulfate 2.5 mg/3 mL 2.5 mg inhalation Q4H PRN Wheezing 12/07/19 10/16/23 (0.083 %) solution for nebulization carvedilol 12.5 mg tablet 25 mg PO BID 12/07/19 10/16/23 hydrochlorothiazide 12.5 mg tablet 25 mg PO QAM 06/26/20 10/16/23 hydroxyzine HCl 25 mg tablet 25 mg PO TID PRN Anxiety 06/26/20 10/16/23 losartan 100 mg tablet 100 mg PO QAM 06/26/20 10/16/23 metformin 500 mg tablet 500 mg PO QAM 06/26/20 10/16/23 sertraline 50 mg tablet 50 mg PO QAM 06/26/20 10/16/23 trazodone 50 mg tablet 50 mg PO BEDTIME PRN Insomnia 06/26/20 10/16/23 clopidogrel 75 mg tablet 75 mg PO DAILY 06/29/20 10/16/23 lidocaine 5 % topical patch 1 patch topical DAILY PRN Pain 02/10/22 10/16/23 atorvastatin 40 mg tablet 80 mg PO BEDTIME 10/16/23 11/26/24 acetaminophen 500 mg tablet 1,000 mg PO Q12H 11/26/24 11/26/24 Previous Rx's Medication Instructions Recorded cyclobenzaprine 5 mg tablet 5 mg PO TID PRN muscle spasms #10 06/29/20 tabs oxycodone 5 mg tablet 5 mg PO Q3HR PRN Pain, Moderate 04/23/22 (4-6) #60 tabs polyethylene glycol 3350 17 gram 17 gm PO DAILY PRN Constipation 04/23/22 oral powder packet #20 ea Allergies Allergy/AdvReac Type Severity Reaction Status Date / Time aspirin [ASPIRIN] Allergy Severe Throat Verified 11/25/24 19:55 closes, eye itching, difficulty breathing buprenorphine [From Suboxone] Allergy Severe Throat Verified 11/25/24 19:55 closing, vomiting ibuprofen [IBUPROFEN] Allergy Severe Throat Verified 11/25/24 19:55 closes, eye itching, difficulty breathing ketorolac [From TORADOL] Allergy Severe Throat Verified 11/25/24 19:55 closes, eye itching, difficulty breathing methadone Allergy Severe Hard time Verified 11/25/24 19:55 breathing, my vital signs were dropping naloxone [From Suboxone] Allergy Severe Throat Verified 11/25/24 19:55 closing, vomiting NSAIDS (Non-Steroidal Allergy Severe Throat Verified 11/25/24 19:55 Anti-Inflamma closes, eye itching, difficulty breathing tramadol [TRAMADOL] Allergy Severe Rash, my Verified 11/25/24 19:55 throat was closing Beef Containing Products Allergy Hives Verified 11/25/24 19:55 duloxetine Allergy Rash Verified 11/25/24 19:55 gabapentin AdvReac Gastrointestinal Verified 11/25/24 19:55 Upset Review of Systems Review of Systems ROS Unobtainable: All systems reviewed & are unremarkable except as noted in HPI and below Patient History Medical History Myocardial infarction Hepatic steatosis Drug-seeking behavior Seizures Peptic ulcer disease PTSD (post-traumatic stress disorder) Depression Easy bruisability Osteoarthritis GERD (gastroesophageal reflux disease) HLD (hyperlipidemia) HTN (hypertension) Asthma Hearing loss Prediabetes Other chronic pain Tinea pedis Pain in right hip Anxiety Coronary artery disease COPD (chronic obstructive pulmonary disease) Stroke (2000) Surgical History History of bilateral knee replacement History of surgery on wrist Hx of colonoscopy Hx of tonsillectomy Social History household members: none Smoking Status: Former smoker alcohol intake: never Smoking Status: Former smoker tobacco type: cigarettes alcohol intake frequency: holidays/special occasions only Exam Initial Vital Signs Initial Vital Signs: Vital Signs Pulse Rate 91 H 11/25/24 17:44 Pulse Oximetry 96 11/25/24 17:44 Const General: cooperative and comfortable HENMT Head: normal to inspection and normocephalic Resp Effort & Inspection: cough, labored, no retractions and tachypneic Auscultation: rhonchi and wheezes Cardio Rate: tachycardic Rhythm: regular rhythm GI Inspection: normal to inspection Skin General: no rashes or lesions noted Neuro General: patient alert, patient awake and moves all extremities Extrem General: No edema Course Orders Ordered: ED Orders 11/25/24 17:50 XR chest 1V Stat EKG-12 Lead Stat Measure peak expiratory flow ONCE RT Consult Eval and Treat NOW 11/25/24 17:55 Complete Blood Count AUTO DIFF Stat Comprehensive Metabolic Panel Stat Lactate (Lactic Acid) Stat NT-proBNP (BNP-Adult 18+) Stat Prothrombin Time INR Stat Respiratory Panel (Film Array) Stat Troponin I Stat 11/25/24 20:36 ABG [Arterial Blood Gas] STAT 11/25/24 20:51 Education, smoking cessation ONGOING 11/26/24 06:00 Basic Metabolic Panel Routine Complete Blood Count AUTO DIFF Routine Acetaminophen (Acetaminophen 325 Mg Tablet) 650 mg PO Q6H PRN PRN Reason: Fever/Mild Pain (1-3) Last Admin: 11/26/24 00:04 Dose: 650 mg Documented By: LINN Albuterol/Ipratropium (Albuterol/Ipratropium 3 Ml Ampul) 3 ml INH RTQ4HR PRN PRN Reason: Shortness Of Breath Albuterol/Ipratropium (Albuterol/Ipratropium 3 Ml Ampul) 3 ml INH [id number] DANIEL Heparin Sodium (Porcine) (Heparin 5,000 Unit/Ml Vial) 5,000 unit SUBCUT BID [facility] Last Admin: 11/25/24 22:39 Dose: 5,000 unit Documented By: LINN Azithromycin 500 mg/ Dextrose 250 mls @ 250 mls/hr IV DAILY [facility] Lorazepam (Lorazepam 2 Mg/Ml Inj) 0.5 mg IV Q6HR PRN PRN Reason: Anxiety Methylprednisolone (Methylprednisolone 125 Mg/2 Ml Vial) 60 mg IV Q6H [facility] Last Admin: 11/25/24 23:37 Dose: 60 mg Documented By: LINN Naloxone HCl (Naloxone 0.4 Mg/Ml Vial) 0.2 mg IV Q2MIN PRN PRN Reason: Opiate Reversal Ondansetron HCl (Ondansetron 4 Mg/2 Ml Inj) 4 mg IV Q8HR PRN PRN Reason: Nausea And Vomiting Sodium Chloride (Sodium Chloride 0.9% Flush) 10 ml IV BID [facility] Sodium Chloride (Sodium Chloride 0.9% Flush) 10 ml IV PRN PRN PRN Reason: Flush Last Admin: 11/25/24 23:37 Dose: 10 ml Documented By: Admin: 11/25/24 22:39 Dose: 10 ml Documented By: LINN Discontinued Medications Albuterol (Albuterol 2.5 Mg/3 Ml Neb (Adult)) 20 mg INH NOW ONE Stop: 11/25/24 19:11 Last Admin: 11/25/24 19:25 Dose: 20 mg Documented By: MR Albuterol/Ipratropium (Albuterol/Ipratropium 3 Ml Ampul) 3 ml INH NOW ONE Stop: 11/25/24 18:04 Last Admin: 11/25/24 18:11 Dose: 3 ml Documented By: AMADOU Azithromycin 500 mg/ Dextrose 250 mls @ 250 mls/hr IV NOW ONE Stop: 11/25/24 19:11 Last Infusion: 11/25/24 20:43 Dose: Infused Documented By: MARIA G Admin: 11/25/24 19:23 Dose: 250 mls/hr Documented By: ERIKA Magnesium Sulfate (Magnesium Sulfate) 2 gm in 50 mls @ 25 mls/hr IV NOW ONE Stop: 11/25/24 21:09 Last Infusion: 11/25/24 20:07 Dose: Infused Documented By: ERIKA Co-signed By: Admin: 11/25/24 19:22 Dose: 25 mls/hr Documented By: ERIKA Co-signed By: Methylprednisolone (Methylprednisolone 125 Mg/2 Ml Vial) 125 mg IV NOW ONE Stop: 11/25/24 19:11 Last Admin: 11/25/24 19:24 Dose: 125 mg Documented By: ERIKA Methylprednisolone (Methylprednisolone 125 Mg/2 Ml Vial) 60 mg IV Q6H DANIEL Last Admin: 11/25/24 22:48 Dose: Not Given Documented By: LINN Oxycodone HCl (Oxycodone Ir 5 Mg Tablet) 5 mg PO NOW ONE Stop: 11/25/24 21:42 Last Admin: 11/25/24 21:44 Dose: 5 mg Documented By: ERIKA Vital Signs Vital signs: Vital Signs - 8 hr 11/25/24 17:44 11/25/24 17:45 11/25/24 17:45 Temperature Pulse Rate 91 H 90 Respiratory Rate Blood Pressure 138/66 Pulse Oximetry 96 98 Oxygen Delivery Method 11/25/24 17:49 11/25/24 17:52 11/25/24 17:52 Temperature 98.1 F Pulse Rate 89 88 Respiratory Rate 19 Blood Pressure 138/66 149/83 H Pulse Oximetry 98 98 Oxygen Delivery Method Room Air 11/25/24 18:00 11/25/24 18:00 11/25/24 18:12 Temperature Pulse Rate 89 90 Respiratory Rate 36 H 20 Blood Pressure 153/89 H Pulse Oximetry 98 98 Oxygen Delivery Method Room Air 11/25/24 18:30 11/25/24 18:31 11/25/24 18:31 Temperature Pulse Rate 93 H 90 Respiratory Rate 34 H 30 H Blood Pressure 187/80 H Pulse Oximetry 97 97 Oxygen Delivery Method 11/25/24 19:00 11/25/24 19:00 11/25/24 19:31 Temperature Pulse Rate 92 H 91 H Respiratory Rate 39 H 32 H Blood Pressure 154/87 H 177/74 H Pulse Oximetry 97 100 Oxygen Delivery Method Room Air 11/25/24 20:01 11/25/24 20:30 Temperature Pulse Rate 98 H 101 H Respiratory Rate 34 H 29 H Blood Pressure 153/61 H 148/69 H Pulse Oximetry 100 100 Oxygen Delivery Method Room Air Medical Decision Making Medical Records Medical records reviewed: Yes I reviewed the patient's medical records. Lab Data Lab results reviewed: Yes I reviewed the patient's lab results. 11/25/24 17:55 11/25/24 17:55 Labs: Lab Results 11/25/24 11/25/24 Range/Units 17:55 20:46 WBC 8.7 (4.5-11.0) X10^3/uL RBC 4.55 (4.0-5.2) X10^6/uL Hgb 11.9 L (12.0-16.0) g/dL Hct 37.1 (36-46) % MCV 81.5 (80-100) fL MCH 26.2 (26-34) PG MCHC 32.2 (30-36) % RDW 17.5 H (11.6-14.8) % Plt Count 438 H (150-400) X10^3/uL Neut % (Auto) 60.7 (50-75) % Lymph % (Auto) 29.0 (25-40) % [place] % (Auto) 7.0 (3-14) % Eos % (Auto) 1.9 L (2-4) % Baso % (Auto) 1.4 (0-2) % Neut # (Auto) 5300 (0609-4331) /uL Lymph # (Auto) 2500 (3824-6592) /uL [place] # (Auto) 600 (0-900) /uL Eos # (Auto) 200 (0-450) /uL Baso # (Auto) 100 (0-100) /uL PT 10.4 (9.4-12.5) SECONDS INR 0.9 (0.9-1.3) ABG pH 7.41 (7.35-7.45) ABG pCO2 38.0 (35-45) mmHg ABG pO2 77 L (80-100) mmHg ABG HCO3 24 (23-27) mmol/L ABG Total CO2 23 (23-27) mmol/L ABG O2 Saturation 96 (95-100) % ABG Base Excess -0.3 (-2-3) mmol/L Sodium 138 (137-145) mmol/L Potassium 3.5 (3.4-5.1) mmol/L Chloride 106 (98-107) mmol/L Carbon Dioxide 25 (22-32) mmol/L BUN 26 H (7-17) mg/dL Creatinine 0.69 (0.52-1.04) mg/dL Estimated GFR > 60 (>60) mL/min BUN/Creatinine Ratio 37.7 H (6-22) Glucose 102 (80-110) mg/dL Lactate 1.0 (0.7-2.1) mmol/L Calcium 8.8 (8.4-10.2) mg/dL Total Bilirubin 0.4 (0.2-1.3) mg/dL AST 38 H (14-36) IU/L ALT 46 H (<35) IU/L Alkaline Phosphatase 132 H (38-126) U/L Troponin I < 0.012 (0.01-0.034) ng/mL NT-Pro-B Natriuret Pep 131 H (<125) pg/mL Total Protein 7.3 (6.3-8.2) g/dL Albumin 4.2 (3.5-5.0) g/dL Globulin 3.1 (1.7-4.1) g/dL Albumin/Globulin Ratio 1.4 (1.0-2.8) Chlamy pneumoniae PCR Not detected (Not Detect) Adenovirus (PCR) Not detected (Not Detect) B. pertussis DNA (PCR) Not detected (Not Detect) B.parapertussis DNA PCR Not detected (Not Detecte) Coronavirus OC43 (PCR) Not detected (Not Detect) Coronavirus HKU1 (PCR) Not detected (Not Detect) Coronavirus 229E (PCR) Not detected (Not Detect) SARS-CoV-2 (PCR) Not detected (Not Detecte) Coronavirus NL63 (PCR) Not detected (Not Detect) Human Metapneumovir PCR Not detected (Not Detect) Influenza Type A (PCR) Not detected (Not Detect) Influenza Type B (PCR) Not detected (Not Detect) M. pneumoniae (PCR) Not detected (Not Detect) Parainfluenza 1 (PCR) Not detected (Not Detect) Parainfluenza 2 (PCR) Not detected (Not Detect) Parainfluenza 3 (PCR) Not detected (Not Detect) Parainfluenza 4 (PCR) Not detected (Not Detect) RSV (PCR) Not detected (Not Detect) Entero/Rhino (PCR) Not detected (Not Detect) Imaging Data Chest x-ray: Radiologist's Impression: PROCEDURE: XR CHEST 1V INDICATIONS: suspected sepsis TECHNIQUE: One view of the chest was acquired. COMPARISON: Merged With [facility], CR, XR CHEST 1V, 08/19/2024, 5:51. Merged With [facility], CR, XR CHEST 1V, 10/14/2022, 14:52. Merged With [facility], CR, XR CHEST 2V, 10/31/2021, 15:31. Merged With [facility], CR, XR CHEST 1V, 01/10/2019, 17:37. FINDINGS: Surgical changes and devices: None. Lungs and pleura: Lungs are clear. No pleural effusions or pneumothorax. Mediastinum: Mediastinal contours appear normal. Heart size is normal. Bones and chest wall: No suspicious bony lesions. Overlying soft tissues appear unremarkable. IMPRESSION: No acute cardiothoracic process. ECG Data Attestation: I personally reviewed and interpreted this ECG as follows: Interpretation: Sinus rhythm Ventricular rate of 88 Normal axis Normal QRS Normal QTC No ST T wave changes MDM Narrative Medical decision making narrative: Chest x-ray shows no signs of pneumonia. I have low suspicion that this is an infectious process however I do have high suspicion this is COPD. She received a nebulizer treatment just prior to my evaluation but still having wheezing was still quite tachypneic. She was then given steroids. Given magnesium and a continuous nebulizer. Her ABG is relatively unremarkable. She was given antibiotics secondary to the COPD exacerbation. Given the nature of her symptoms in her persistent tachycardia I do feel patient would benefit from admission to the hospital. Discussed the case with Dr. Franklin hospitalist on- call who accepts the patient for admission. Discussed the need for admission with the patient expressed understanding and agreement with plan. Discharge Plan Departure Patient Disposition: Admitted As Inpatient Clinical Impression: COPD exacerbation Admit Date/Time: 11/25/24 20:56 Admit Provider: Balwinder Franklin
[2024-11-25] MEDS: MAGNESIUM SULFATE 2 GM/50 ML PIGGYBACK IV (19:22)
[2024-11-25] MEDS: AZITHROMYCIN 500 MG in DEXTROSE 5% IN WATER 250 ML 250 MG IV (19:23)
[2024-11-25] MEDS: methylPREDNISolone 125 MG/2 ML VIAL IV (19:24)
[2024-11-25] MEDS: ALBUTEROL 2.5 MG/3 ML NEB (ADULT) 20 MG INH (19:25)
--- NOTE | 2024-11-25 20:09 | PC.NURSE ---
2 Gram Mag-sulfate ordered to be given over 2hrs, this was discussed with Sukhdev HILL and verbal order given to increase rate to Respiratory protocol (given at rate of 150mls/hr). Rate increased and infusion finished 45 minutes after being started.
[2024-11-25 20:54] LABS: Base Excess ABG -0.3 mmol/L (-2-3); HCO3 ABG 24 mmol/L (23-27); Oxygen Saturation ABG 96 % (95-100); PO2 ABG 77 mmHg (80-100); TCO2 ABG 23 mmol/L (23-27); pH ABG 7.41 (7.35-7.45)
[2024-11-25] MEDS: OXYCODONE IR 5 MG TABLET PO (21:44)
[2024-11-25] MEDS: HEPARIN 5,000 UNIT/ML VIAL 5000 UNIT SUBCUT (22:39)
[2024-11-25] MEDS: SODIUM CHLORIDE 0.9% FLUSH 10 ML IV ×2 (22:39→23:37)
[2024-11-25 23:22] LABS: MRSA (Nasal) PCR NOT DETECTED (Not Detect)
[2024-11-25] MEDS: methylPREDNISolone 125 MG/2 ML VIAL 60 MG IV (23:37)
[2024-11-26] VITALS (78 sets, daily range): BP systolic 108–200; BP diastolic 58–102; PULSE 80–107; RESP 15–45; TEMP 36–36.4; O2SAT 93–100
[2024-11-26] MEDS: ACETAMINOPHEN 325 MG TABLET 650 MG PO (00:04)
[2024-11-26] MEDS: LORazepam 2 MG/ML INJ 0.5 MG IV ×2 (01:07→21:25)
[2024-11-26] MEDS: SODIUM CHLORIDE 0.9% FLUSH 10 ML IV ×4 (01:09→21:27)
[2024-11-26] MEDS: OXYCODONE/ACETAMINOPHEN 5/325 TABLET 1 TAB PO (01:09)
--- NOTE | 2024-11-26 02:55 | P.HP_ITS ---
History of Present Illness History of Present Illness Chief complaint: Chest Pain x5 Days Narrative: 64 year-old female with past medical history of hypertension, non-insulin independent diabetes, depression, hyperlipidemia, CAD, COPD non O2 dependent, CVA and seizure disorder presents with shortness of breath and dyspnea. Per the patient's report, the patient has been experiencing five days of chest tightness associates with some shortness of breath. The patient yesterday also developed worsening shortness of breath. The patient was seen at outside ER and was diagnosed with COPD exacerbation. The patient was sent home with oral antibiotic as well as inhalers and oral steroids. However the patient is unable to get her antibiotic. The patient state that her breathing is worsen today despite being on oral prednisone and inhalers at home. Otherwise the patient denies any fever, chills, nausea, vomiting or diarrhea. In emergency room, the patient was hemodynamically stable with saturating well over 90% on room air. However the patient has significant respiratory distress despite after getting duonebs, IV Solumedrol and magnesium. The patient was started on BiPAP. ABG was done which shows relatively normal. Due to ongoing respiratory disstress, our ER physician requested admission to treat for COPD exacerbation. The patient also was given Azithromycin. Trop was negative and EKG shows no acute sign of ischemia. PENDING SALE TO [facility] Medical History Myocardial infarction Hepatic steatosis Drug-seeking behavior Seizures Peptic ulcer disease PTSD (post-traumatic stress disorder) Depression Easy bruisability Osteoarthritis GERD (gastroesophageal reflux disease) HLD (hyperlipidemia) HTN (hypertension) Asthma Hearing loss Prediabetes Other chronic pain Tinea pedis Pain in right hip Anxiety Coronary artery disease COPD (chronic obstructive pulmonary disease) Stroke (1999) Surgical History History of bilateral knee replacement History of surgery on wrist Hx of colonoscopy Hx of tonsillectomy Social History household members: none Smoking Status: Former smoker alcohol intake: never Meds Home Medications and Allergies Home Medications Medication Instructions Recorded Confirmed Type clotrimazole 1 % topical cream 1 applic topical Q12H PRN Rash 04/29/18 11/26/24 History hydroxyzine HCl 25 mg tablet 25 mg PO TID PRN Anxiety 06/26/20 11/26/24 History losartan 100 mg tablet 100 mg PO QAM 06/26/20 11/26/24 History sertraline 50 mg tablet 50 mg PO QAM 06/26/20 11/26/24 History clopidogrel 75 mg tablet 75 mg PO DAILY 06/29/20 11/26/24 History lidocaine 5 % topical patch 1 patch topical DAILY PRN Pain 02/10/22 11/26/24 History atorvastatin 40 mg tablet 80 mg PO BEDTIME 10/16/23 11/26/24 History acetaminophen 500 mg tablet 1,000 mg PO Q12H 11/26/24 11/26/24 History albuterol sulfate 90 mcg/actuation 2 puff inhalation Q4H PRN Wheezing 11/26/24 11/26/24 History aerosol inhaler carvedilol 3.125 mg tablet 3.125 mg PO BID 11/26/24 11/26/24 History hydrochlorothiazide 25 mg tablet 25 mg PO DAILY 11/26/24 11/26/24 History metaxalone 800 mg tablet 800 mg PO TID PRN Muscle spasms 11/26/24 11/26/24 History metformin 500 mg tablet,extended 500 mg PO DAILY 11/26/24 11/26/24 History release 24 hr oxycodone 5 mg tablet 5 mg PO Q8H PRN Pain (Scale Score 11/26/24 11/26/24 History 4-6) Allergies Allergy/AdvReac Type Severity Reaction Status Date / Time aspirin [ASPIRIN] Allergy Severe Throat Verified 11/25/24 19:55 closes, eye itching, difficulty breathing buprenorphine [From Suboxone] Allergy Severe Throat Verified 11/25/24 19:55 closing, vomiting ibuprofen [IBUPROFEN] Allergy Severe Throat Verified 11/25/24 19:55 closes, eye itching, difficulty breathing ketorolac [From TORADOL] Allergy Severe Throat Verified 11/25/24 19:55 closes, eye itching, difficulty breathing methadone Allergy Severe Hard time Verified 11/25/24 19:55 breathing, my vital signs were dropping naloxone [From Suboxone] Allergy Severe Throat Verified 11/25/24 19:55 closing, vomiting NSAIDS (Non-Steroidal Allergy Severe Throat Verified 11/25/24 19:55 Anti-Inflamma closes, eye itching, difficulty breathing tramadol [TRAMADOL] Allergy Severe Rash, my Verified 11/25/24 19:55 throat was closing Beef Containing Products Allergy Hives Verified 11/25/24 19:55 duloxetine Allergy Rash Verified 11/25/24 19:55 gabapentin AdvReac Gastrointestinal Verified 11/25/24 19:55 Upset Review of Systems Review of Systems ROS: Yes All systems reviewed with the patient and are negative except as otherwise documented Exam Vital Signs (past 8 hours): - 11/25/24 19:00 11/25/24 19:00 11/25/24 19:31 Temperature Pulse Rate 92 H 91 H Respiratory Rate 39 H 32 H Blood Pressure 154/87 H 177/74 H Pulse Oximetry 97 100 Oxygen Delivery Method Room Air Oxygen Flow Rate 11/25/24 20:01 11/25/24 20:30 11/25/24 21:00 Temperature Pulse Rate 98 H 101 H 110 H Respiratory Rate 34 H 29 H 29 H Blood Pressure 153/61 H 148/69 H Pulse Oximetry 100 100 97 Oxygen Delivery Method Room Air Oxygen Flow Rate 11/25/24 21:00 11/25/24 21:30 11/25/24 21:52 Temperature 97.7 F Pulse Rate 105 H 98 H Respiratory Rate 37 H 29 H Blood Pressure 155/79 H 172/71 H Pulse Oximetry 96 97 Oxygen Delivery Method Oxygen Flow Rate 0 11/25/24 22:00 11/25/24 22:01 11/25/24 22:01 Temperature Pulse Rate 98 H 98 H Respiratory Rate 26 H 31 H Blood Pressure 172/71 H Pulse Oximetry 98 97 Oxygen Delivery Method Oxygen Flow Rate 11/25/24 22:16 11/25/24 22:30 11/25/24 23:00 Temperature Pulse Rate 101 H 104 H Respiratory Rate 29 H 34 H Blood Pressure Pulse Oximetry 98 96 Oxygen Delivery Method Room Air Oxygen Flow Rate 11/25/24 23:30 11/25/24 23:48 11/25/24 23:48 Temperature Pulse Rate 104 H 105 H Respiratory Rate 25 H 30 H Blood Pressure 136/66 Pulse Oximetry 96 98 Oxygen Delivery Method Oxygen Flow Rate 11/26/24 00:00 11/26/24 00:01 11/26/24 00:01 Temperature Pulse Rate 105 H 104 H Respiratory Rate 30 H 29 H Blood Pressure 179/82 H Pulse Oximetry 97 98 Oxygen Delivery Method Oxygen Flow Rate 11/26/24 00:30 11/26/24 00:40 11/26/24 01:00 Temperature Pulse Rate 96 H 97 H 92 H Respiratory Rate 23 39 H Blood Pressure 179/82 H Pulse Oximetry 97 97 Oxygen Delivery Method Oxygen Flow Rate 11/26/24 01:01 11/26/24 01:01 11/26/24 01:16 Temperature Pulse Rate 96 H 89 Respiratory Rate 38 H 25 H Blood Pressure 155/102 H Pulse Oximetry 98 98 Oxygen Delivery Method Oxygen Flow Rate 11/26/24 01:16 11/26/24 01:27 11/26/24 01:30 Temperature Pulse Rate 91 H 93 H Respiratory Rate 24 26 H Blood Pressure 143/76 H 143/76 H Pulse Oximetry 94 Oxygen Delivery Method Oxygen Flow Rate 11/26/24 02:00 11/26/24 02:00 11/26/24 02:00 Temperature Pulse Rate 91 H Respiratory Rate 24 Blood Pressure 145/66 H Pulse Oximetry 93 Oxygen Delivery Method Heated High Flow Oxygen Flow Rate 50 Oxygen Delivery Method Heated High Flow Oxygen Flow Rate 50 Narrative Exam Narrative: Physical Exam: GENERAL: The patient is not in any acute distressed. Awake and alert. HEENT: Nonicteric sclerae, PERRLA, EOMI. Oropharynx clear. Moist mucous membranes. Conjunctivae appear well perfused. HEART: Regular rate and rhythm without murmurs. No lower extremities edema. LUNGS: Clear to auscultation bilaterally. No wheezing, crackles or rhonchi ABDOMEN: Soft, positive bowel sounds, nontender. SKIN: No rash, no excessive bruising, petechiae, or purpura. NEUROLOGIC: AxO x 3. Cranial nerves II-XII intact without motor/sensory deficit. Objective Labs 11/25/24 17:55 11/25/24 17:55 Labs: Laboratory Results - last 24 hr 11/25/24 11/25/24 11/25/24 17:55 20:46 21:55 WBC 8.7 RBC 4.55 Hgb 11.9 L Hct 37.1 MCV 81.5 MCH 26.2 MCHC 32.2 RDW 17.5 H Plt Count 438 H Neut % (Auto) 60.7 Lymph % (Auto) 29.0 [place] % (Auto) 7.0 Eos % (Auto) 1.9 L Baso % (Auto) 1.4 Neut # (Auto) 5300 Lymph # (Auto) 2500 [place] # (Auto) 600 Eos # (Auto) 200 Baso # (Auto) 100 PT 10.4 INR 0.9 ABG pH 7.41 ABG pCO2 38.0 ABG pO2 77 L ABG HCO3 24 ABG Total CO2 23 ABG O2 Saturation 96 ABG Base Excess -0.3 Sodium 138 Potassium 3.5 Chloride 106 Carbon Dioxide 25 BUN 26 H Creatinine 0.69 Estimated GFR > 60 BUN/Creatinine Ratio 37.7 H Glucose 102 Lactate 1.0 Calcium 8.8 Total Bilirubin 0.4 AST 38 H ALT 46 H Alkaline Phosphatase 132 H Troponin I < 0.012 NT-Pro-B Natriuret Pep 131 H Total Protein 7.3 Albumin 4.2 Globulin 3.1 Albumin/Globulin Ratio 1.4 Nasal Screen MRSA (PCR) Not detected Chlamy pneumoniae PCR Not detected Adenovirus (PCR) Not detected B. pertussis DNA (PCR) Not detected B.parapertussis DNA PCR Not detected Coronavirus OC43 (PCR) Not detected Coronavirus HKU1 (PCR) Not detected Coronavirus 229E (PCR) Not detected SARS-CoV-2 (PCR) Not detected Coronavirus NL63 (PCR) Not detected Human Metapneumovir PCR Not detected Influenza Type A (PCR) Not detected Influenza Type B (PCR) Not detected M. pneumoniae (PCR) Not detected Parainfluenza 1 (PCR) Not detected Parainfluenza 2 (PCR) Not detected Parainfluenza 3 (PCR) Not detected Parainfluenza 4 (PCR) Not detected RSV (PCR) Not detected Entero/Rhino (PCR) Not detected Assessment & Plan Assessment & Plan narrative: COPD exacerbation. Admit the patient to medical telemetry as inpatient. Continue Duonebs, IV Solumedrol and oxygen as needed. Continue BiPAP for now. Again gas that was done in the ER was relatively benign. Possible pneumonia. Continue IV Azithromycin. Patient not septic at this time. Hypertension. Monitor blood pressure and resume home medication accordingly. Hyperlipidemia. Resume home Statin. Depression. Resume home medication. DVT prophylaxis hep SQ Code Status full code. Disposition likely home in 2 to 3 days. Time-Based Coding :: [TOTAL MINUTES] spent with patient and on the chart (including review of chart, obtaining history, exam, reviewing outside data, placing orders, documenting exam and treatment plan, and counseling patient) on [DATE]. Quality VTE Deep Vein Thrombosis/Pulmonary Embolism Present on Admission: No
[2024-11-26 04:39] LABS: Add Manual Diff / Slide Review NO; Basophils Absolute Auto 100 /uL (0-100); Basophils Percent Auto 1.3 % (0-2); Eosinophils Absolute Auto 0 /uL (0-450); Hematocrit 35.3 % (36-46); Hemoglobin 11.3 g/dL (12.0-16.0); Lymphocytes Absolute Auto 600 /uL (1100-4500); Lymphocytes Percent Auto 8.7 % (25-40); Mean Corpuscular HGB Conc 32.2 % (30-36); Mean Corpuscular Hemoglobin 26.2 PG (26-34); Mean Corpuscular Volume 81.4 fL (80-100); Monocytes Absolute Auto 100 /uL (0-900); Monocytes Percent Auto 0.9 % (3-14); Neutrophils Absolute Auto 6200 /uL (1500-7000); Neutrophils Percent Auto 89.1 % (50-75); Platelet Count 401 X10^3/uL (150-400); Red Blood Cell Count 4.34 X10^6/uL (4.0-5.2); Red Cell Distribution Width 17.7 % (11.6-14.8)
[2024-11-26] MEDS: OXYCODONE IR 5 MG TABLET 10 MG PO ×4 (04:45→21:26)
[2024-11-26] MEDS: BENZONATATE 100 MG CAPSULE PO (04:45)
[2024-11-26] MEDS: methocarbamoL 500 MG TABLET 750 MG PO ×3 (04:46→15:09)
[2024-11-26 04:48] LABS: BUN Creatinine Ratio 39.2 (6-22); Blood Urea Nitrogen 20 mg/dL (7-17); Calcium 8.8 mg/dL (8.4-10.2); Carbon Dioxide 25 mmol/L (22-32); Chloride 104 mmol/L (98-107); Estimated Glomerular Filt Rate > 60 mL/min (>60); Glucose 217 mg/dL (80-110); HEMOLYSIS < 15 (0-50); Sodium 134 mmol/L (137-145)
[2024-11-26] MEDS: methylPREDNISolone 125 MG/2 ML VIAL 60 MG IV ×3 (05:03→17:21)
[2024-11-26] MEDS: ALBUTEROL/IPRATROPIUM 3 ML AMPUL INH ×3 (06:58→19:20)
[2024-11-26] MEDS: CLOPIDOGREL 75 MG TABLET PO (08:44)
[2024-11-26] MEDS: AZITHROMYCIN 500 MG in DEXTROSE 5% IN WATER 250 ML 250 MG IV (08:44)
[2024-11-26] MEDS: SERTRALINE 50 MG TABLET PO (08:45)
[2024-11-26] MEDS: LOSARTAN 50 MG TABLET 100 MG PO (08:45)
[2024-11-26] MEDS: HEPARIN 5,000 UNIT/ML VIAL 5000 UNIT SUBCUT ×2 (08:45→21:25)
--- NOTE | 2024-11-26 11:25 | PM.PN.1 ---
Subjective Subjective Date Patient Seen: 11/26/24 Time Patient Seen: 09:40 Interval history: 64 year-old female with past medical history of hypertension, non-insulin independent diabetes, depression, hyperlipidemia, CAD, COPD non O2 dependent, CVA and seizure disorder presents with shortness of breath and dyspnea. Per the patient's report, the patient has been experiencing five days of chest tightness associates with some shortness of breath. The patient yesterday also developed worsening shortness of breath. The patient was seen at outside ER and was diagnosed with COPD exacerbation. The patient was sent home with oral antibiotic as well as inhalers and oral steroids. However the patient is unable to get her antibiotic. The patient state that her breathing is worsen today despite being on oral prednisone and inhalers at home. Otherwise the patient denies any fever, chills, nausea, vomiting or diarrhea. In emergency room, the patient was hemodynamically stable with saturating well over 90% on room air. However the patient has significant respiratory distress despite after getting duonebs, IV Solumedrol and magnesium. The patient was started on BiPAP. ABG was done which shows relatively normal. Due to ongoing respiratory disstress, our ER physician requested admission to treat for COPD exacerbation. The patient also was given Azithromycin. Trop was negative and EKG shows no acute sign of ischemia. Interval history: Patient reports breathing has improved but notes some ongoing anterior chest wall pain and requests pain medication. Exam Vital Signs (past 8 hours): - 11/26/24 03:30 11/26/24 04:00 11/26/24 04:00 Temperature Pulse Rate 86 80 Respiratory Rate 22 21 Blood Pressure 141/77 H Pulse Oximetry 95 95 Oxygen Delivery Method Oxygen Flow Rate 50 50 Fraction of Inspired Oxygen 11/26/24 04:30 11/26/24 04:46 11/26/24 05:00 Temperature Pulse Rate 83 87 Respiratory Rate 15 19 Blood Pressure 145/78 H Pulse Oximetry 97 94 Oxygen Delivery Method Oxygen Flow Rate Fraction of Inspired Oxygen 11/26/24 05:00 11/26/24 05:27 11/26/24 05:30 Temperature 97.5 F L Pulse Rate 80 92 H Respiratory Rate 21 45 H Blood Pressure Pulse Oximetry 97 98 Oxygen Delivery Method Oxygen Flow Rate Fraction of Inspired Oxygen 11/26/24 05:51 11/26/24 06:00 11/26/24 06:01 Temperature Pulse Rate 86 Respiratory Rate 37 H Blood Pressure 176/79 H Pulse Oximetry 95 Oxygen Delivery Method Heated High Flow Oxygen Flow Rate Fraction of Inspired Oxygen 11/26/24 06:01 11/26/24 07:00 11/26/24 07:00 Temperature Pulse Rate 86 88 Respiratory Rate 35 H 30 H Blood Pressure Pulse Oximetry 96 98 Oxygen Delivery Method Heated High Flow Oxygen Flow Rate 50 21 Fraction of Inspired Oxygen 94 11/26/24 07:01 11/26/24 07:01 11/26/24 07:30 Temperature Pulse Rate 87 85 Respiratory Rate 25 H 26 H Blood Pressure 180/84 H Pulse Oximetry 100 96 Oxygen Delivery Method Oxygen Flow Rate Fraction of Inspired Oxygen 11/26/24 07:35 11/26/24 07:35 11/26/24 08:00 Temperature Pulse Rate 88 90 Respiratory Rate 31 H 33 H Blood Pressure 174/80 H Pulse Oximetry 98 99 Oxygen Delivery Method Oxygen Flow Rate Fraction of Inspired Oxygen 11/26/24 08:01 11/26/24 08:01 11/26/24 08:30 Temperature Pulse Rate 88 95 H Respiratory Rate 42 H 30 H Blood Pressure 108/58 L Pulse Oximetry 98 97 Oxygen Delivery Method Oxygen Flow Rate Fraction of Inspired Oxygen 11/26/24 08:31 11/26/24 08:31 11/26/24 08:43 Temperature Pulse Rate 97 H Respiratory Rate 23 Blood Pressure 200/83 H 161/68 H Pulse Oximetry 97 Oxygen Delivery Method Oxygen Flow Rate Fraction of Inspired Oxygen 11/26/24 08:43 11/26/24 08:45 11/26/24 09:00 Temperature Pulse Rate 97 H 94 H 94 H Respiratory Rate 29 H 27 H Blood Pressure 161/68 H Pulse Oximetry 97 99 Oxygen Delivery Method Oxygen Flow Rate Fraction of Inspired Oxygen 11/26/24 09:01 11/26/24 09:01 11/26/24 09:30 Temperature Pulse Rate 98 H Respiratory Rate 34 H Blood Pressure 119/82 124/75 Pulse Oximetry 98 Oxygen Delivery Method Oxygen Flow Rate Fraction of Inspired Oxygen 11/26/24 09:30 11/26/24 10:00 11/26/24 10:00 Temperature Pulse Rate 92 H 90 Respiratory Rate 30 H 22 Blood Pressure Pulse Oximetry 98 97 Oxygen Delivery Method Heated High Flow Oxygen Flow Rate Fraction of Inspired Oxygen 11/26/24 10:01 11/26/24 10:01 11/26/24 10:25 Temperature Pulse Rate 94 H 89 Respiratory Rate 24 28 H Blood Pressure 154/81 H Pulse Oximetry 99 98 Oxygen Delivery Method Oxygen Flow Rate Fraction of Inspired Oxygen Fraction of Inspired Oxygen 94 Oxygen Delivery Method Heated High Flow Oxygen Flow Rate 21 Narrative Exam Narrative: GENERAL: This is a well-nourished, well-developed patient, in no apparent distress. HEAD: Atraumatic. Normocephalic. No temporal or scalp tenderness. EYES: Pupils equal round and reactive. Extraocular motions intact. No scleral icterus. No injection or drainage. ENT: Mucous membranes pink and moist. NECK: Trachea midline. No JVD, bruits or lymphadenopathy. Supple, nontender, no meningeal signs. CARDIOVASCULAR: Regular rate and rhythm without murmurs, gallops, or rubs. RESPIRATORY: Diminished breath sounds throughout, diffuse mid to end-expiratory wheezing. GASTROINTESTINAL: Abdomen soft, non-tender, nondistended. EXTREMITIES: No clubbing, cyanosis, or edema. BACK: Nontender without deformity or crepitance. No flank tenderness. NEUROLOGIC: Alert, oriented, speech fluent, full upper and lower motor strength, no focal deficits evident. DERMATOLOGIC: No rashes or skin lesions. Objective Imaging Chest x-ray: Radiologist's impression: No acute cardiopulmonary abnormality is seen. Labs 11/26/24 04:06 11/26/24 04:06 Labs: Laboratory Results - last 24 hr 11/25/24 11/25/24 11/25/24 17:55 20:46 21:55 WBC 8.7 RBC 4.55 Hgb 11.9 L Hct 37.1 MCV 81.5 MCH 26.2 MCHC 32.2 RDW 17.5 H Plt Count 438 H Neut % (Auto) 60.7 Lymph % (Auto) 29.0 Yancey % (Auto) 7.0 Eos % (Auto) 1.9 L Baso % (Auto) 1.4 Neut # (Auto) 5300 Lymph # (Auto) 2500 Yancey # (Auto) 600 Eos # (Auto) 200 Baso # (Auto) 100 PT 10.4 INR 0.9 ABG pH 7.41 ABG pCO2 38.0 ABG pO2 77 L ABG HCO3 24 ABG Total CO2 23 ABG O2 Saturation 96 ABG Base Excess -0.3 Sodium 138 Potassium 3.5 Chloride 106 Carbon Dioxide 25 BUN 26 H Creatinine 0.69 Estimated GFR > 60 BUN/Creatinine Ratio 37.7 H Glucose 102 Lactate 1.0 Calcium 8.8 Total Bilirubin 0.4 AST 38 H ALT 46 H Alkaline Phosphatase 132 H Troponin I < 0.012 NT-Pro-B Natriuret Pep 131 H Total Protein 7.3 Albumin 4.2 Globulin 3.1 Albumin/Globulin Ratio 1.4 Nasal Screen MRSA (PCR) Not detected Chlamy pneumoniae PCR Not detected Adenovirus (PCR) Not detected B. pertussis DNA (PCR) Not detected B.parapertussis DNA PCR Not detected Coronavirus OC43 (PCR) Not detected Coronavirus HKU1 (PCR) Not detected Coronavirus 229E (PCR) Not detected SARS-CoV-2 (PCR) Not detected Coronavirus NL63 (PCR) Not detected Human Metapneumovir PCR Not detected Influenza Type A (PCR) Not detected Influenza Type B (PCR) Not detected M. pneumoniae (PCR) Not detected Parainfluenza 1 (PCR) Not detected Parainfluenza 2 (PCR) Not detected Parainfluenza 3 (PCR) Not detected Parainfluenza 4 (PCR) Not detected RSV (PCR) Not detected Entero/Rhino (PCR) Not detected 11/26/24 04:06 WBC 7.0 RBC 4.34 Hgb 11.3 L Hct 35.3 L MCV 81.4 MCH 26.2 MCHC 32.2 RDW 17.7 H Plt Count 401 H Neut % (Auto) 89.1 H D Lymph % (Auto) 8.7 L D Yancey % (Auto) 0.9 L Eos % (Auto) 0.0 L Baso % (Auto) 1.3 Neut # (Auto) 6200 Lymph # (Auto) 600 L Yancey # (Auto) 100 Eos # (Auto) 0 Baso # (Auto) 100 PT INR ABG pH ABG pCO2 ABG pO2 ABG HCO3 ABG Total CO2 ABG O2 Saturation ABG Base Excess Sodium 134 L Potassium 4.0 Chloride 104 Carbon Dioxide 25 BUN 20 H Creatinine 0.51 L Estimated GFR > 60 BUN/Creatinine Ratio 39.2 H Glucose 217 H D Lactate Calcium 8.8 Total Bilirubin AST ALT Alkaline Phosphatase Troponin I NT-Pro-B Natriuret Pep Total Protein Albumin Globulin Albumin/Globulin Ratio Nasal Screen MRSA (PCR) Chlamy pneumoniae PCR Adenovirus (PCR) B. pertussis DNA (PCR) B.parapertussis DNA PCR Coronavirus OC43 (PCR) Coronavirus HKU1 (PCR) Coronavirus 229E (PCR) SARS-CoV-2 (PCR) Coronavirus NL63 (PCR) Human Metapneumovir PCR Influenza Type A (PCR) Influenza Type B (PCR) M. pneumoniae (PCR) Parainfluenza 1 (PCR) Parainfluenza 2 (PCR) Parainfluenza 3 (PCR) Parainfluenza 4 (PCR) RSV (PCR) Entero/Rhino (PCR) PFS Medical History Myocardial infarction Hepatic steatosis Drug-seeking behavior Seizures Peptic ulcer disease PTSD (post-traumatic stress disorder) Depression Easy bruisability Osteoarthritis GERD (gastroesophageal reflux disease) HLD (hyperlipidemia) HTN (hypertension) Asthma Hearing loss Prediabetes Other chronic pain Tinea pedis Pain in right hip Anxiety Coronary artery disease COPD (chronic obstructive pulmonary disease) Stroke (1999) Surgical History History of bilateral knee replacement History of surgery on wrist Hx of colonoscopy Hx of tonsillectomy Social History household members: none Smoking Status: Former smoker alcohol intake: never Assessment & Plan Assessment & Plan narrative: 1. COPD exacerbation. Admitted to medical telemetry as inpatient. Continue Duonebs, IV Solumedrol and oxygen as needed. Transitioned from BiPAP to high-flow oxygen. 2. Possible pneumonia. Continue IV Azithromycin. Patient not septic at this time. 3. Hypertension. Elevated. 4. Hyperlipidemia. Continue statin. 5. Depression. Continue sertraline. Plan: -High flow oxygen, wean as tolerated -azithromycin, IV steroids, bronchodilators -resume home blood pressure medication -DVT prophylaxis hep SQ -Code Status full code. Disposition likely home in 2 to 3 days. Quality VTE Deep Vein Thrombosis/Pulmonary Embolism Present on Admission: No IH PROFEE Charge codes Subsequent inpatient/observation care: 16743
[2024-11-26] MEDS: carvediloL 3.125 MG TABLET PO ×2 (11:57→21:25)
[2024-11-26] MEDS: METFORMIN XR 500 MG TABLET PO (11:58)
[2024-11-26] MEDS: INSULIN LISPRO 100 UNIT/ML 3ML VIAL SUBCUT ×2 (11:59→16:51)
--- NOTE | 2024-11-26 13:20 | CM.DANOTE ---
Patient is a 64 yo female who was admitted INPT Status on 11/25/24 for COPD exac. Pt has MEDICAID for insurance and her PCP is at the [facility]. EMR was reviewed. Per , pt with hx of hypertension and multiple strokes, DM, COPD, seizure DO and admitted after she failed outpt COPD exacerbation tx and now currently on HHF O2 and possible pneumonia. Pt not yet medically appropriate for PT/OT eval but could benefit from assessment when more stable with her oxygen needs. SW met bedside with pt and explained role and pt confirms she lives at home in [facility] alone with her cat but has local supportive family and also has CG through Medicaid COPES M-F for a few hours a day but her CG just left for vacation to see elderly family in [place]. Pt confirms she has limitations from her 3 prior strokes and a hip surgery in 2021 that has not healed properly and causes her chronic pain with drainable abscess that she is following up with in the outpt setting. Pt confirms that she uses a FWW at baseline for mobility and CG or family provides transport and she does not use oxygen at home at baseline. Pt preference is to d/c home with family support and her cat when medically stable but aware that she will likely work with PT/OT prior to d/c to confirm any d/c planning needs. Plan: SW to follow closely for PT/OT eval maybe tomorrow Sun if medically appropriate to confirm if pt safe for d/c home with family support since [facility] CG not currently available and to r/o HH vs SNF. CHARLY Feldman Discharge Planning/Care Management CM Discharge Assessment Start: 11/26/24 13:15 Freq: Status: Active Protocol: Document 11/26/24 13:15 BF (Rec: 11/26/24 13:20 BF [id number]) Discharge Planning Assessment Assigned Top Lift Nailer CHARLY Zimmerman DPOA/Assigned Designee Name informally Devan Marin Contact Information [phone] Advance Directives? No Advance Directives on File No History Provided By Patient,Medical Record Has Patient been admitted in last 30 No days? Prior Living Arrangements House Household Members none Comment has a cat at home Type of transporation used prior to Relies on Others admit Independent with ADL's No: 3 prior strokes, has [facility] CG 5 days wk Is patient alert and oriented? Yes Needs Assistance With Meal Prep,Home Chores / Shopping Caregiver for Another No DME Already Rented / Owned FWW / Walker Comment FWW, cane, and electric scooter Comment Pending PT/OT eval when more medically appropriate Barriers to Discharge No Discharge Plan Home with Home Health Transportation Arrangement Likely family to transport at d/c Additional Comment Pending PT/OT eval when more medically appropriate Whiteboard Updated in Patient Room with Yes name and ext. # of Top Lift Nailer Review Status In Process Please Provide Date Initial DC 11/26/24 Assessment Was Performed Next Review Type Continued Stay Review
[2024-11-26] MEDS: ATORVASTATIN 20 MG TABLET 80 MG PO (21:26)
[2024-11-27] VITALS (47 sets, daily range): BP systolic 152–184; BP diastolic 72–80; PULSE 72–102; RESP 16–45; TEMP 35.7–36.7; O2SAT 94–98
[2024-11-27] MEDS: methylPREDNISolone 125 MG/2 ML VIAL 60 MG IV ×5 (00:36→23:21)
[2024-11-27] MEDS: OXYCODONE IR 5 MG TABLET 10 MG PO ×4 (03:37→21:47)
[2024-11-27] MEDS: BENZONATATE 100 MG CAPSULE PO ×2 (03:37→15:56)
[2024-11-27] MEDS: methocarbamoL 500 MG TABLET 750 MG PO ×3 (03:38→15:50)
[2024-11-27] MEDS: ALBUTEROL/IPRATROPIUM 3 ML AMPUL INH ×4 (03:45→19:20)
[2024-11-27] MEDS: INSULIN LISPRO 100 UNIT/ML 3ML VIAL SUBCUT ×3 (08:04→17:02)
[2024-11-27] MEDS: AZITHROMYCIN 500 MG in DEXTROSE 5% IN WATER 250 ML 250 MG IV (09:21)
[2024-11-27] MEDS: HEPARIN 5,000 UNIT/ML VIAL 5000 UNIT SUBCUT ×2 (09:21→20:22)
[2024-11-27] MEDS: METFORMIN XR 500 MG TABLET PO (09:21)
[2024-11-27] MEDS: carvediloL 3.125 MG TABLET PO ×2 (09:22→20:22)
[2024-11-27] MEDS: CLOPIDOGREL 75 MG TABLET PO (09:23)
[2024-11-27] MEDS: SERTRALINE 50 MG TABLET PO (09:23)
[2024-11-27] MEDS: LOSARTAN 50 MG TABLET 100 MG PO (09:23)
[2024-11-27] MEDS: SODIUM CHLORIDE 0.9% FLUSH 10 ML IV ×2 (09:34→20:23)
--- NOTE | 2024-11-27 09:35 | PM.PN.1 ---
Subjective Subjective Date Patient Seen: 11/27/24 Time Patient Seen: 08:50 Interval history: 64 year-old female with past medical history of hypertension, non-insulin independent diabetes, depression, hyperlipidemia, CAD, COPD non O2 dependent, CVA and seizure disorder presents with shortness of breath and dyspnea. Per the patient's report, the patient has been experiencing five days of chest tightness associates with some shortness of breath. The patient yesterday also developed worsening shortness of breath. The patient was seen at outside ER and was diagnosed with COPD exacerbation. The patient was sent home with oral antibiotic as well as inhalers and oral steroids. However the patient is unable to get her antibiotic. The patient state that her breathing is worsen today despite being on oral prednisone and inhalers at home. Otherwise the patient denies any fever, chills, nausea, vomiting or diarrhea. In emergency room, the patient was hemodynamically stable with saturating well over 90% on room air. However the patient has significant respiratory distress despite after getting duonebs, IV Solumedrol and magnesium. The patient was started on BiPAP. ABG was done which shows relatively normal. Due to ongoing respiratory disstress, our ER physician requested admission to treat for COPD exacerbation. The patient also was given Azithromycin. Trop was negative and EKG shows no acute sign of ischemia. Interval history: The patient weaned off oxygen but still notes considerable wheezing dyspnea with minimal exertion, which persistent anterior chest wall. Exam Vital Signs (past 8 hours): - 11/27/24 02:00 11/27/24 02:30 11/27/24 03:00 Temperature Pulse Rate 75 79 72 Respiratory Rate 20 22 20 Blood Pressure Pulse Oximetry Oxygen Delivery Method Oxygen Flow Rate 11/27/24 03:28 11/27/24 03:28 11/27/24 03:30 Temperature Pulse Rate 99 H 91 H Respiratory Rate 24 26 H Blood Pressure 152/73 H Pulse Oximetry 94 96 Oxygen Delivery Method Oxygen Flow Rate 11/27/24 03:46 11/27/24 04:00 11/27/24 04:00 Temperature 97.0 F L Pulse Rate 84 100 H 81 Respiratory Rate 16 26 H 24 Blood Pressure 152/73 H Pulse Oximetry 97 97 95 Oxygen Delivery Method Room Air Oxygen Flow Rate 0 11/27/24 04:30 11/27/24 05:00 11/27/24 05:30 Temperature Pulse Rate 96 H 90 92 H Respiratory Rate 31 H 21 23 Blood Pressure Pulse Oximetry 95 95 95 Oxygen Delivery Method Oxygen Flow Rate 11/27/24 06:00 11/27/24 06:30 11/27/24 07:00 Temperature Pulse Rate 80 79 Respiratory Rate 22 16 Blood Pressure Pulse Oximetry 95 97 Oxygen Delivery Method Room Air Oxygen Flow Rate 11/27/24 07:00 11/27/24 07:24 11/27/24 07:24 Temperature Pulse Rate 75 86 Respiratory Rate 20 26 H Blood Pressure 163/74 H Pulse Oximetry 95 95 Oxygen Delivery Method Oxygen Flow Rate 11/27/24 07:30 11/27/24 08:00 11/27/24 08:00 Temperature 98.0 F Pulse Rate 74 89 73 Respiratory Rate 23 22 24 Blood Pressure 163/74 H Pulse Oximetry 96 98 97 Oxygen Delivery Method Oxygen Flow Rate 0 11/27/24 09:22 11/27/24 09:23 Temperature Pulse Rate 87 87 Respiratory Rate Blood Pressure 163/74 H 163/74 H Pulse Oximetry Oxygen Delivery Method Oxygen Flow Rate Fraction of Inspired Oxygen 94 Oxygen Delivery Method Room Air Oxygen Flow Rate 0 Narrative Exam Narrative: GENERAL: This is a well-nourished, well-developed patient, appears mildly dyspneic with minimal exertion, sitting up in chair. EYES: Pupils equal round and reactive. Extraocular motions intact. No scleral icterus. No injection or drainage. ENT: Mucous membranes pink and moist. NECK: Supple, nontender, no meningeal signs. CARDIOVASCULAR: Regular rate and rhythm without murmurs, gallops, or rubs. RESPIRATORY: Diminished breath sounds throughout, diffuse mid to end-expiratory wheezing. GASTROINTESTINAL: Abdomen soft, non-tender, nondistended. EXTREMITIES: No clubbing, cyanosis, or edema. BACK: Nontender without deformity or crepitance. No flank tenderness. NEUROLOGIC: Alert, oriented, speech fluent, full upper and lower motor strength, no focal deficits evident. DERMATOLOGIC: No rashes or skin lesions. Objective Labs 11/26/24 04:06 11/26/24 04:06 [facility] Medical History Myocardial infarction Hepatic steatosis Drug-seeking behavior Seizures Peptic ulcer disease PTSD (post-traumatic stress disorder) Depression Easy bruisability Osteoarthritis GERD (gastroesophageal reflux disease) HLD (hyperlipidemia) HTN (hypertension) Asthma Hearing loss Prediabetes Other chronic pain Tinea pedis Pain in right hip Anxiety Coronary artery disease COPD (chronic obstructive pulmonary disease) Stroke (1999) Surgical History History of bilateral knee replacement History of surgery on wrist Hx of colonoscopy Hx of tonsillectomy Social History household members: none Smoking Status: Former smoker alcohol intake: never Assessment & Plan Assessment & Plan narrative: 1. COPD exacerbation. Admitted to medical telemetry as inpatient. Continue Duonebs, IV Solumedrol and oxygen as needed. Off oxygen since 11/26/2024. 2. Possible pneumonia. Continue IV Azithromycin. Patient not septic at this time. 3. Hypertension. Elevated. 4. Hyperlipidemia. Continue statin. 5. Depression. Continue sertraline. Plan: -azithromycin, IV steroids, bronchodilators -DVT prophylaxis hep SQ -Code Status full code. Disposition likely home in 1-2 days. Quality VTE Deep Vein Thrombosis/Pulmonary Embolism Present on Admission: No PROFEE Charge codes Subsequent inpatient/observation care: 90394
[2024-11-27] MEDS: ATORVASTATIN 20 MG TABLET 80 MG PO (20:23)
[2024-11-27] MEDS: LORazepam 2 MG/ML INJ 0.5 MG IV (23:29)
[2024-11-28] VITALS (37 sets, daily range): BP systolic 149–188; BP diastolic 70–84; PULSE 58–104; RESP 15–44; TEMP 36–36.9; O2SAT 93–99
[2024-11-28] MEDS: methylPREDNISolone 125 MG/2 ML VIAL 60 MG IV (06:30)
[2024-11-28] MEDS: OXYCODONE IR 5 MG TABLET 10 MG PO ×3 (06:49→17:31)
[2024-11-28] MEDS: METFORMIN XR 500 MG TABLET PO (08:20)
[2024-11-28] MEDS: SERTRALINE 50 MG TABLET PO (08:20)
[2024-11-28] MEDS: carvediloL 3.125 MG TABLET PO (08:20)
[2024-11-28] MEDS: CLOPIDOGREL 75 MG TABLET PO (08:21)
[2024-11-28] MEDS: AZITHROMYCIN 500 MG in DEXTROSE 5% IN WATER 250 ML 250 MG IV (08:21)
[2024-11-28] MEDS: HEPARIN 5,000 UNIT/ML VIAL 5000 UNIT SUBCUT (08:21)
[2024-11-28] MEDS: LOSARTAN 50 MG TABLET 100 MG PO (08:21)
[2024-11-28] MEDS: SODIUM CHLORIDE 0.9% FLUSH 10 ML IV (08:22)
[2024-11-28] MEDS: methocarbamoL 500 MG TABLET 750 MG PO (08:28)
[2024-11-28] MEDS: predniSONE 20 MG TABLET 40 MG PO (12:10)
[2024-11-28] MEDS: GUAIFENESIN/DM 200/20 MG/10 ML UDC PO (12:14)
--- NOTE | 2024-11-28 14:04 | PT.IIE ---
Current Diagnoses Chronic obstructive pulmonary disease with (acute) exacerbation (11/25/24) Surgical History (Last Reviewed 05/05/22 @ 17:05 by Arsenio Hand DO) History of bilateral knee replacement History of surgery on wrist Hx of colonoscopy Hx of tonsillectomy Medical History (Last Reviewed 11/26/24 @ 00:42 by Nacho Santizo DO) Anxiety Asthma COPD (chronic obstructive pulmonary disease) Coronary artery disease Depression Drug-seeking behavior Easy bruisability GERD (gastroesophageal reflux disease) Hearing loss Hepatic steatosis HLD (hyperlipidemia) HTN (hypertension) Myocardial infarction Osteoarthritis Other chronic pain Pain in right hip Peptic ulcer disease Prediabetes PTSD (post-traumatic stress disorder) Seizures Stroke (1999) Tinea pedis Physical Therapy Inpatient Evaluation/Re-Eval M1 PT/OT-IP Prior Functional Status Start: 11/28/24 13:17 Freq: NEEDED Status: Active Protocol: Document 11/28/24 13:18 MB (Rec: 11/28/24 14:04 MB [id number]) Medical Review Prior Functional Status Medical History Reviewed Yes Communication Unsure baseline diet, pt appears to have decreased dentition. 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 but she is not clear about this as she lives alone with her cat Social History Household Members none Living Arrangements House Number of Floors (Floors) One Floor Home Environment High Toilet,Walk in Shower Home Equipment Four Wheel Walker,Raised Toilet Seat w/Armrests,Shower Seat without Backrest,Hand Held Shower,Hospital Bed Additional Social History Comment Pt occ becomes agitated and states, I don't like answering questions so unsure if all PT information is correct M2 PT-IP Current Condition Start: 11/28/24 13:17 Freq: NEEDED Status: Active Protocol: Document 11/28/24 13:18 MB (Rec: 11/28/24 14:04 MB [id number]) Physical Therapy Current Condition Current Condition Evaluation Date 11/28/24 Treatment Diagnosis Chest tightness and SOB M3 PT-IP Subjective Start: 11/28/24 13:17 Freq: NEEDED Status: Active Protocol: Document 11/28/24 13:18 MB (Rec: 11/28/24 14:04 MB [id number]) Subjective Physical Therapy Visit Type Type Initial Evaluation Visit Start Time 13:18 Visit Stop Time 13:44 Number of ANIMAL GENETICIST Visits 0 Physical Therapy Visit Comments Patient Comments Pt is hyperverbal and repeats herself/ongoing stories about healthcare, medications, payment, etc, during assessment. She c/o 9/10 pain including chest tightness and also vertigo and she con't to smile throughout treatment. She does not directly answer questions about vertigo, stating she doesn't know what it is, even after PT educates her about dizziness. History is difficult to obtain. Therapy Pain Assessment Pain When Pain Assessed At Rest Pain Present Pain Present Pain Reported Location chest Intensity 9 M4 PT-IP Mobility and Gait Start: 11/28/24 13:17 Freq: NEEDED Status: Active Protocol: Document 11/28/24 13:18 MB (Rec: 11/28/24 14:04 MB [id number]) PT-Bed Mobility Assessment Supine to Sit Supine to Sit Standby Assistance,Head of Bed Elevated,Bedrails Sit to Supine Sit to Supine Standby Assistance,Head of Bed Elevated,Bedrails Scooting Scooting to Edge of Bed Standby Assistance Scooting Up and Down in Bed Standby Assistance PT-Transfer Assessment Sit to and From Stand Sit to and from Stand Standby Assistance,1 Person Assistance,Use of Upper Extremities Equipment Transfer Assistive Device Gait Belt,Front Wheeled Walker Orthotic/Prosthetic Devices or Brace: Yes Transfers Transfer Destination Bed Transfer Technique Ambulation Transfer Ability Level of Assist Standby Assistance Comments Mobility Comments Pt con't to talk throughout mobility despite c/o pain and not wishing to move, not feeling well. She c/o light- headedess upon sitting and BP in LUE is 149/70 and O2 sats remain 98-100% on RA with mobility. No PUALA noted and pt appears dyspneic when she coughs. Gait Assessment Gait Gait Assistance Required: Standby Assistance Distance (Feet) 20 Able to Maintain Weight Bearing Status Yes During Gait Assistive Devices Assistive Device Gait Belt,Front Wheeled Walker Orthotic/Prosthetic Devices or Brace: No Gait Deviations General Gait Pattern Wide Based Gait Factors Limiting Gait Function Factors Limiting Gait Function Poor Safety Awareness, Respiratory Distress Comments Gait Comments 20'x2 PT-Balance Assessment Sitting Balance and Reactions Static Sitting Balance Ability Normal Dynamic Sitting Balance Ability Good Standing Balance and Reactions Static Standing Balance Ability Good Dynamic Standing Balance Ability Good Device Used RW M5 PT-IP Objective Assessments Start: 11/28/24 13:17 Freq: NEEDED Status: Active Protocol: Document 11/28/24 13:18 MB (Rec: 11/28/24 14:04 MB [id number]) Orientation Orientation/Cognition Level of Alertness Alert Orientation Name,Age,Birthday,Place, Situation Language Function Ability No Deficits Noted Safety Awareness Decreased Safety Awareness Memory Description No Deficits Noted Gross Range of Motion Upper Extremity ROM Assessment Within Functional Limits Lower Extremity ROM Assessment Within Functional Limits Strength Upper Extremity Strength Assessment Within Functional Limits Lower Extremity Strength Assessment Within Functional Limits Comments Strength Comments Range and strength functionally assessed only d/t pt hyperverbal and difficult to redirect from repeated stories Muscle Tone Muscle Tone WNL Yes M6 PT-IP Treatment Start: 11/28/24 13:17 Freq: NEEDED Status: Active Protocol: Document 11/28/24 13:18 MB (Rec: 11/28/24 14:04 MB [id number]) Physical Therapy Treatment Education Education Provided Safety M7 PT-IP Assessment and Plan Start: 11/28/24 13:17 Freq: NEEDED Status: Active Protocol: Document 11/28/24 13:18 MB (Rec: 11/28/24 14:04 MB [id number]) PT Summary Assessment and Plan Potential Rehabilitation Potential Good Status of Condition at Evaluation Evolving Summary Impairments Pain,Balance,Bed Mobility, Transfers,Gait,Activity Tolerance Assessment Summary Pt is a 64 y/o female adm d/t chest tightness and SOB. Pt has other c/o neck pain, dizziness and B hip pain after hip surgeries. PT attempts to screen her dizziness but pt does not answer questions directly, frequently states she is confused and does not understand and she con't to repeat a same story about her healthcare history and a doctor on the [facility]. Pt moves well as she talks and has some PAULA, mostly when coughing. She reports she is dizzy with getting to sitting and BP is WNLs. She closes eyes when lying back and likes HOB increased and so PT is unable to fully assess for nystagmus. Pt's goal is to d/c home with caregiver assistance. Goals Bed Mobility Goal Independent Transfer Goal Independent,Four Wheeled Walker Gait Goal Independent,Four Wheel Walker Gait Distance 75 Days to Meet Goals 3 Frequency of Treatment Frequency Of Treatment Once a Day Treatment Plan Physical Therapy Treatment Plan Bed Mobility Training,Transfer Training,Gait Training, Therapeutic Exercise,Balance Retraining,Discharge Planning, Hot or Cold Pack,Neuromuscular Re-ed,Coordination Retraining ,Manual Therapy Recommendations To Nursing Amount of Assist Needed Standby Assistance Discharge Recommendations PT Discharge Recommendations Home with Assistance,Home Health Transportation Needs at Discharge Private Vehicle
--- NOTE | 2024-11-28 14:39 | CM.DPC ---
DCP Cont: Per MD, pt making good progress and seems to be tolerating room air and to work with PT today and potential that pt will be stable for d/c today vs tomorrow. Per PT, recommending home with assist and HH. Per AUTOPSY PATHOLOGIST, pt was able to ambulate with FWW to bathroom and showered and now back to bed. SW met bedside with pt and explained role again and pt confirms she feels much better than when she was admitted and currently remains on room air and pt confirms her preference is home with family support and thinks her [facility] will be back from vacation soon. SW discussed HH recommendation and pt states she has used two HH agencies in the past and did not feel they were very helpful and declines HH at this time. Pt states she has updated her [facility] and [facility] of her admission to the hospital and they will follow up with her after d/c. Pt states that likely her [employer] [facility] can provide transport home for her at d/c. Plan: SW to follow for plan of discharge home today vs tomorrow pending progress with family support and outpt f/u. CHARLY Feldman
--- NOTE | 2024-11-28 16:51 | P.DS_ITS ---
History of Present Illness History of Present Illness Date Patient Seen: 11/28/24 Time Patient Seen: 16:52 Chief complaint: Chest Pain x5 Days Narrative: Per admitting provider, 64 year-old female with past medical history of hypertension, non-insulin independent diabetes, depression, hyperlipidemia, CAD, COPD non O2 dependent, CVA and seizure disorder presents with shortness of breath and dyspnea. Per the patient's report, the patient has been experiencing five days of chest tightness associates with some shortness of breath. The patient yesterday also developed worsening shortness of breath. The patient was seen at outside ER and was diagnosed with COPD exacerbation. The patient was sent home with oral antibiotic as well as inhalers and oral steroids. However the patient is unable to get her antibiotic. The patient state that her breathing is worsen today despite being on oral prednisone and inhalers at home. Otherwise the patient denies any fever, chills, nausea, vomiting or diarrhea. In emergency room, the patient was hemodynamically stable with saturating well over 90% on room air. However the patient has significant respiratory distress despite after getting duonebs, IV Solumedrol and magnesium. The patient was started on BiPAP. ABG was done which shows relatively normal. Due to ongoing respiratory disstress, our ER physician requested admission to treat for COPD exacerbation. The patient also was given Azithromycin. Trop was negative and EKG shows no acute sign of ischemia. Discharge Providers Provider Date of admission: 11/25/24 20:56 Discharge Date: 11/28/24 Primary care physician: Jairo Hart MD Consults: 11/25/24 22:16 Consult to Pastoral Services Routine Comment: per pt preference 11/28/24 09:26 Consult to Physical Therapy Evaluate & Treat Comment: Physician Instructions: Evaluate and Treat Discharge provider: Bipin Salinas DO Summary Hospital Course Discharge Diagnosis: 1. COPD exacerbation with acute hypoxic respiratory failure. 2. Possible pneumonia 3. Hypertension. 4. Hyperlipidemia. 5. Depression. Hospital Course: This is a 64 year old female with a past medical history of COPD, hypertension, hyperlipidemia, and depression who was admitted with a COPD exacerbation and mild hypoxia. 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 She was treated for a possible bacterial pneumonia along with COPD exacerbation with steroids. She quickly improved with resolution of her hypoxia, but had continued dyspnea with exertion which was finally improved on the day of discharge. She was discharged home to continue steroid taper and was also given a prescription for Augmentin for 5 days for possible bacterial pneumonia. Time Spent with Patient Time spent: Less than 30 minutes Exam Vital Signs (past 8 hours): - 11/28/24 09:00 11/28/24 09:30 11/28/24 10:00 Temperature Pulse Rate 104 H 92 H 76 Respiratory Rate 36 H 42 H 27 H Blood Pressure Pulse Oximetry 98 99 98 Oxygen Flow Rate 11/28/24 10:30 11/28/24 11:00 11/28/24 11:30 Temperature Pulse Rate 78 67 68 Respiratory Rate 35 H 19 35 H Blood Pressure Pulse Oximetry 97 97 93 Oxygen Flow Rate 11/28/24 11:31 11/28/24 11:31 11/28/24 12:00 Temperature 98.2 F Pulse Rate 70 71 Respiratory Rate 27 H 18 Blood Pressure 149/70 H 149/70 H Pulse Oximetry 97 98 Oxygen Flow Rate 0 11/28/24 12:00 11/28/24 12:30 11/28/24 13:00 Temperature Pulse Rate 72 81 82 Respiratory Rate 34 H 34 H 24 Blood Pressure Pulse Oximetry 97 97 97 Oxygen Flow Rate 11/28/24 13:30 11/28/24 14:22 11/28/24 14:30 Temperature Pulse Rate 90 95 H 93 H Respiratory Rate 32 H 26 H 43 H Blood Pressure Pulse Oximetry 93 98 Oxygen Flow Rate 11/28/24 15:00 11/28/24 15:30 11/28/24 16:00 Temperature Pulse Rate 80 84 71 Respiratory Rate 18 18 20 Blood Pressure Pulse Oximetry 97 99 96 Oxygen Flow Rate Fraction of Inspired Oxygen 21 SaO2/FiO2 Ratio 457 Oxygen Delivery Method Room Air Oxygen Flow Rate 0 Narrative Exam Narrative: GENERAL: This is a well-nourished, well-developed patient, appears mildly dyspneic with minimal exertion, sitting up in chair. EYES: Pupils equal round and reactive. Extraocular motions intact. No scleral icterus. No injection or drainage. ENT: Mucous membranes pink and moist. NECK: Supple, nontender, no meningeal signs. CARDIOVASCULAR: Regular rate and rhythm without murmurs, gallops, or rubs. RESPIRATORY: Diminished breath sounds throughout, diffuse mid to end-expiratory wheezing. GASTROINTESTINAL: Abdomen soft, non-tender, nondistended. EXTREMITIES: No clubbing, cyanosis, or edema. BACK: Nontender without deformity or crepitance. No flank tenderness. NEUROLOGIC: Alert, oriented, speech fluent, full upper and lower motor strength, no focal deficits evident. DERMATOLOGIC: No rashes or skin lesions. Objective Labs 11/26/24 04:06 11/26/24 04:06 Labs: Laboratory Results - last 24 hr 11/25/24 20:46 ABG Sample Site Not Reportable Rolly Test N/a PFSH Medical History Myocardial infarction Hepatic steatosis Drug-seeking behavior Seizures Peptic ulcer disease PTSD (post-traumatic stress disorder) Depression Easy bruisability Osteoarthritis GERD (gastroesophageal reflux disease) HLD (hyperlipidemia) HTN (hypertension) Asthma Hearing loss Prediabetes Other chronic pain Tinea pedis Pain in right hip Anxiety Coronary artery disease COPD (chronic obstructive pulmonary disease) Stroke (1999) Surgical History History of bilateral knee replacement History of surgery on wrist Hx of colonoscopy Hx of tonsillectomy Social History household members: none Smoking Status: Former smoker alcohol intake: never Discharge Plan Discharge Plan Patient Disposition: Home Provider Discharge Comment: You were admitted to the hospital with shortness of breath, possible this was due to COPD exacerbation, also treated for pneumonia. Complete course of steroids and antibiotics at home. Continue OTC cough suppressants as needed for symptoms. Discharge orders & Medications Prescriptions: New prednisone 20 mg tablet 40 mg PO DAILY Qty: 20 0RF amoxicillin-pot clavulanate 875-125 mg tablet 1 tab PO BID 5 Days Qty: 10 0RF Continued clotrimazole 1 % cream 1 applic Topical Q12H PRN (Reason: Rash) Patient Comments: has not taken in month of May. hydroxyzine HCl 25 mg Tablet 25 mg PO TID PRN (Reason: Anxiety) losartan 100 mg Tablet 100 mg PO QAM sertraline 50 mg Tablet 50 mg PO QAM clopidogrel 75 mg Tablet 75 mg PO DAILY Rx Instructions: takes in the evening atorvastatin 40 mg tablet 80 mg PO BEDTIME lidocaine 5 % Adhesive Patch,Medicated 1 patch TOPICAL DAILY PRN (Reason: Pain) Rx Instructions: leave on most painful area for up to 12 hrs acetaminophen 500 mg tablet 1,000 mg PO Q12H carvedilol 3.125 mg tablet 3.125 mg PO BID hydrochlorothiazide 25 mg tablet 25 mg PO DAILY metformin 500 mg tablet extended release 24 hr 500 mg PO DAILY oxycodone 5 mg tablet 5 mg PO Q8H MDD 15 mg PRN (Reason: Pain (Scale Score 4-6)) albuterol sulfate 90 mcg/actuation HFA aerosol inhaler 2 puff inhalation Q4H PRN (Reason: Wheezing) metaxalone 800 mg Tablet 800 mg PO TID PRN (Reason: Muscle spasms) Follow up/Referrals: Jairo Hart MD [Primary Care Provider] - Diet/Activity/Treatments Diet: Diet as Tolerated and Regular Activity: As tolerated no restrictions. Visit Report/Discharge Packet Instructions: How to Prevent Falls, DI for Prescription Opioid Use Stand Alone Forms: Patient Portal/API, Stroke Signs & Symptoms Discharge Data Primary Care Provider: Jairo Hart Quality VTE Deep Vein Thrombosis/Pulmonary Embolism Present on Admission: No
--- NOTE | 2024-11-28 18:00 | PC.NURSE ---
Pt agreeable to discharge. Education provided to pt on worsening symptoms, stroke s/s, follow up appt, and antibiotics. Instructed to finish entire course of antibiotics. Items retrieved from the safe and provided to patient. Pt ambulated to w/c and wheeled via wheelchair to private vehicle at approximately 1800.
== END 2024-11-28 18:00 | disposition home or self-care (01) | DRG 190 ==
LOC: ED 20:54 → AC 20:56 → ICU 21:34
PROVIDERS: Emergency Medicine; Admitting Provider Internal Medicine; Emergency Provider Emergency Medicine; PCP Student in an Organized Health Care Education/Training Program; Referring Provider Emergency Medicine; Visit Provider Internal Medicine
DX: J44.1 Chronic obstructive pulmonary disease with (acute) exacerbation (principal); J15.9 Unspecified bacterial pneumonia; J96.01 Acute respiratory failure with hypoxia; J44.0 Chronic obstructive pulmonary disease with (acute) lower respiratory infection; I10 Essential (primary) hypertension; E78.5 Hyperlipidemia, unspecified; F32.A Depression, unspecified; F41.9 Anxiety disorder, unspecified; E11.9 Type 2 diabetes mellitus without complications; I25.10 Atherosclerotic heart disease of native coronary artery without angina pectoris; Z79.02 Long term (current) use of antithrombotics/antiplatelets; Z87.891 Personal history of nicotine dependence; Z79.4 Long term (current) use of insulin; Z86.73 Personal history of transient ischemic attack (TIA), and cerebral infarction without residual deficits
CPT/HCPCS: 36415; 36600; 71045; 80048; 80053; 82805; 82962; 83605; 83880; 84484; 85025; 85610; 87633; 87797; 93005; 94640; 94762; 96365; 96367; 96368; 96375; 97161; 99285; J1644; J1815; J2060; J2919; J3475; J7613

== ENCOUNTER 2024-12-09 12:14 | Emergency (ER) | payer MEDICAID, SELFPAY ==
[2024-11-25 21:59] VITALS: BMI 34.0
[2024-12-09] VITALS (23 sets, daily range): BP systolic 82–171; BP diastolic 55–74; PULSE 80–103; RESP 16–32; TEMP 36.4; O2SAT 1–100; BMI 34.4
--- NOTE | 2024-12-09 12:27 | EKG_ITS ---
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
--- NOTE | 2024-12-09 12:30 | DI.RAD.S_ITS ---
PROCEDURE: XR CHEST 1V INDICATIONS: chest pain TECHNIQUE: One view of the chest was acquired. COMPARISON: Located Within [facility], CR, XR CHEST 1V, 11/25/2024, 17:53. Located Within [facility], CR, XR CHEST 1V, 10/13/2024, 13:53. FINDINGS: Surgical changes and devices: None. Lungs and pleura: Mild peribronchial thickening. No dense airspace disease or pleural effusions. Low lung volumes. Mediastinum: Normal heart size Bones and chest wall: Degenerative changes IMPRESSION: Mild peribronchial thickening possibly atypical infection versus artifact of low lung volumes. No dense airspace disease or pleural effusions on this single view study. Dictated by: Luis Ramesh M.D. on 12/09/2024 at 13:24 Approved by: Luis Ramesh M.D. on 12/09/2024 at 13:24
[2024-12-09] MEDS: ALBUTEROL/IPRATROPIUM 3 ML AMPUL INH ×2 (12:34→15:03)
[2024-12-09 12:52] LABS: Add Manual Diff / Slide Review NO; Basophils Absolute Auto 100 /uL (0-100); Basophils Percent Auto 1.1 % (0-2); Eosinophils Absolute Auto 200 /uL (0-450); Hematocrit 36.2 % (36-46); Hemoglobin 11.6 g/dL (12.0-16.0); INR 0.9 (0.9-1.3); Lymphocytes Absolute Auto 2500 /uL (1100-4500); Lymphocytes Percent Auto 25.1 % (25-40); Mean Corpuscular HGB Conc 32.1 % (30-36); Mean Corpuscular Hemoglobin 26.6 PG (26-34); Mean Corpuscular Volume 82.9 fL (80-100); Monocytes Absolute Auto 700 /uL (0-900); Monocytes Percent Auto 6.8 % (3-14); Neutrophils Absolute Auto 6500 /uL (1500-7000); Platelet Count 338 X10^3/uL (150-400); Red Blood Cell Count 4.37 X10^6/uL (4.0-5.2); Red Cell Distribution Width 18.5 % (11.6-14.8); White Blood Cell Count 9.9 X10^3/uL (4.5-11.0)
[2024-12-09 12:54] LABS: PTT Partial Thromboplastin Tim 32 SECONDS (25.1-36.5)
[2024-12-09 12:56] LABS: Alanine Aminotransferase 40 IU/L (<35); Albumin Globulin Ratio 1.5 (1.0-2.8); Alkaline Phosphatase 108 U/L (38-126); Aspartate Aminotransferase 37 IU/L (14-36); BUN Creatinine Ratio 36.7 (6-22); Bilirubin Total 0.4 mg/dL (0.2-1.3); Blood Urea Nitrogen 22 mg/dL (7-17); Calcium 8.8 mg/dL (8.4-10.2); Carbon Dioxide 24 mmol/L (22-32); Chloride 106 mmol/L (98-107); Creatine Kinase 43 U/L (30-135); Estimated Glomerular Filt Rate > 60 mL/min (>60); Globulin 2.6 g/dL (1.7-4.1); Glucose 117 mg/dL (80-110); HEMOLYSIS 35 (0-50); Lipase 58 U/L (23-300); Potassium 3.8 mmol/L (3.4-5.1); Sodium 136 mmol/L (137-145); Total Protein 6.6 g/dL (6.3-8.2)
[2024-12-09] MEDS: methylPREDNISolone 125 MG/2 ML VIAL IV (12:58)
[2024-12-09 13:08] LABS: NT-proBNP (BNP-Adult 18+) 63 pg/mL (<125); Troponin I < 0.012 ng/mL (0.01-0.034)
--- NOTE | 2024-12-09 14:22 | ED.CHESTPAIN ---
HPI - Chest Pain General Chief Complaint: Chest Pain Stated Complaint: SOB, Chest pain. recent pneumonia Time Seen by Provider: 12/09/24 12:50 Source: patient and EMS Mode of arrival: EMS Limitations: no limitations Limitations: no limitations History of Present Illness HPI narrative: 64-year-old female history of hypertension, [id number] diabetes, depression, dyslipidemia, CAD, COPD non O2 dependent, stroke and seizure disorder presents with complaint of chest pain particularly with cough and recent hospitalization for COPD exacerbation with a acute hypoxic respiratory failure and pneumonia charged home on steroids and Augmentin. Patient was admitted on 11/25/2024 and discharged home on 11/28/2024. Patient states she feel all that much improved after discharge states in the last day she developed substernal chest pressure denies radiation notes the other day when she was walking she had a little bit of discomfort in her left lower chest felt like she was not fully expanded her lung. States no fevers but has been a little bit sweaty. She is continued to have a cough but nonproductive. States pressure still present. No nausea, no vomiting. No other GI or urinary symptoms. No new swelling in extremities. Notes she does use inhalers at home normally received a DuoNeb with EMS states minimal improvement. She does note she has been taking oxycodone for pain. Patient states she did complete her antibiotics and steroids. States home medications include sertraline, losartan, carvedilol, metformin, clopidogrel, atorvastatin, trazodone and nebulized/inhaled medications. Patient states history of COPD but quit smoking many years ago. Did have a left hip replacement in January had a right hip replacement the year before that and has had prior knee surgery. Allergies to aspirin, NSAIDs, tramadol gabapentin but does take oxycodone without issue. States no issue with IV contrast. Remote history of tobacco use, no alcohol, no recreational drugs. Dr. Hart is her primary care physician. Related Data Home Medications Medication Instructions Recorded Confirmed clotrimazole 1 % topical cream 1 applic topical Q12H PRN Rash 04/29/18 11/26/24 hydroxyzine HCl 25 mg tablet 25 mg PO TID PRN Anxiety 06/26/20 11/26/24 losartan 100 mg tablet 100 mg PO QAM 06/26/20 11/26/24 sertraline 50 mg tablet 50 mg PO QAM 06/26/20 11/26/24 clopidogrel 75 mg tablet 75 mg PO DAILY 06/29/20 11/26/24 lidocaine 5 % topical patch 1 patch topical DAILY PRN Pain 02/10/22 11/26/24 atorvastatin 40 mg tablet 80 mg PO BEDTIME 10/16/23 11/26/24 acetaminophen 500 mg tablet 1,000 mg PO Q12H 11/26/24 11/26/24 albuterol sulfate 90 mcg/actuation 2 puff inhalation Q4H PRN Wheezing 11/26/24 11/26/24 aerosol inhaler carvedilol 3.125 mg tablet 3.125 mg PO BID 11/26/24 11/26/24 hydrochlorothiazide 25 mg tablet 25 mg PO DAILY 11/26/24 11/26/24 metaxalone 800 mg tablet 800 mg PO TID PRN Muscle spasms 11/26/24 11/26/24 metformin 500 mg tablet,extended 500 mg PO DAILY 11/26/24 11/26/24 release 24 hr oxycodone 5 mg tablet 5 mg PO Q8H PRN Pain (Scale Score 11/26/24 11/26/24 4-6) Previous Rx's Medication Instructions Recorded prednisone 20 mg tablet 40 mg (2 x 20 mg) PO DAILY #20 tabs 11/28/24 azithromycin 250 mg tablet See Rx Instructions PO .COMPLEX #6 12/09/24 tabs prednisone 10 mg tablets in a dose See Rx Instructions PO .COMPLEX 12/09/24 pack #21 ea Allergies Allergy/AdvReac Type Severity Reaction Status Date / Time aspirin [ASPIRIN] Allergy Severe Throat Verified 11/25/24 19:55 closes, eye itching, difficulty breathing buprenorphine [From Suboxone] Allergy Severe Throat Verified 11/25/24 19:55 closing, vomiting ibuprofen [IBUPROFEN] Allergy Severe Throat Verified 11/25/24 19:55 closes, eye itching, difficulty breathing ketorolac [From TORADOL] Allergy Severe Throat Verified 11/25/24 19:55 closes, eye itching, difficulty breathing methadone Allergy Severe Hard time Verified 11/25/24 19:55 breathing, my vital signs were dropping naloxone [From Suboxone] Allergy Severe Throat Verified 11/25/24 19:55 closing, vomiting NSAIDS (Non-Steroidal Allergy Severe Throat Verified 11/25/24 19:55 Anti-Inflamma closes, eye itching, difficulty breathing tramadol [TRAMADOL] Allergy Severe Rash, my Verified 11/25/24 19:55 throat was closing Beef Containing Products Allergy Hives Verified 11/25/24 19:55 duloxetine Allergy Rash Verified 11/25/24 19:55 gabapentin AdvReac Gastrointestinal Verified 11/25/24 19:55 Upset Review of Systems Review of Systems ROS Unobtainable: All systems reviewed & are unremarkable except as noted in HPI and below Patient History Medical History Myocardial infarction Hepatic steatosis Drug-seeking behavior Seizures Peptic ulcer disease PTSD (post-traumatic stress disorder) Depression Easy bruisability Osteoarthritis GERD (gastroesophageal reflux disease) HLD (hyperlipidemia) HTN (hypertension) Asthma Hearing loss Prediabetes Other chronic pain Tinea pedis Pain in right hip Anxiety Coronary artery disease COPD (chronic obstructive pulmonary disease) Stroke (1999) Surgical History Hx of colonoscopy Hx of tonsillectomy History of surgery on wrist History of bilateral knee replacement Social History household members: none Smoking Status: Former smoker alcohol intake: never Smoking Status: Former smoker tobacco type: cigarettes alcohol intake frequency: holidays/special occasions only Exam Narrative Exam Narrative: GENERAL: Alert and oriented x three, female in [id number] distress. HEENT: Head normocephalic, atraumatic, EOMI, pupils reactive, face symmetric, moist mucous membranes NECK: Supple, full range of motion CARDIOVASCULAR: Regular rate and rhythm without murmurs, rubs or gallops. No JVD. No edema bilateral lower extremity. RESPIRATORY: Breath sounds decreased bilaterally, no rales or rhonchi. Patient has some tachypnea, no accessory muscle use. Patient had just returned to ED gurney from bedside commode and was tachypneic ABDOMEN: Soft, nontender. Normoactive bowel sounds all 4 quadrants. No guarding or rebound, rigidity, no mass : No CVA tenderness EXTREMITIES: Normal range of motion, no clubbing or edema. Neurovascularly intact NEUROLOGICAL: Cranial nerves II through XII grossly intact. Moving all extremities SKIN: Warm, dry, no petechiae, no rashes or lesions. Initial Vital Signs Initial Vital Signs: Vital Signs Pulse Rate 85 12/09/24 12:19 Blood Pressure 147/60 H 12/09/24 12:19 Pulse Oximetry 100 12/09/24 12:19 Oxygen Delivery Method Room Air 12/09/24 12:19 Course Orders Ordered: ED Orders 12/09/24 12:30 XR chest 1V Stat EKG-12 Lead Stat 12/09/24 12:31 Complete Blood Count AUTO DIFF Stat Comprehensive Metabolic Panel Stat Lipase Stat Magnesium Stat NT-proBNP (BNP-Adult 18+) Stat PTT Partial Thromboplastin Reinaldo Stat Prothrombin Time INR Stat Troponin & CK Cardiac Panel Stat 12/09/24 14:38 CT angio chest PE protocol Stat 12/09/24 15:15 Trop I [Troponin I] Stat Discontinued Medications Albuterol/Ipratropium (Albuterol/Ipratropium 3 Ml Ampul) 3 ml INH NOW ONE Stop: 12/09/24 12:33 Last Admin: 12/09/24 12:34 Dose: 3 ml Documented By: AMADOU Albuterol/Ipratropium (Albuterol/Ipratropium 3 Ml Ampul) 3 ml INH NOW ONE Stop: 12/09/24 14:40 Last Admin: 12/09/24 15:03 Dose: 3 ml Documented By: AMADOU Methylprednisolone (Methylprednisolone 125 Mg/2 Ml Vial) 125 mg IV NOW ONE Stop: 12/09/24 12:51 Last Admin: 12/09/24 12:58 Dose: 125 mg Documented By: ARLEY Oxycodone HCl (Oxycodone Ir 5 Mg Tablet) 5 mg PO NOW ONE Stop: 12/09/24 18:24 Last Admin: 12/09/24 18:31 Dose: 5 mg Documented By: ARLEY Oxycodone/Acetaminophen (Oxycodone/Acetaminophen 5/325 Tablet) 1 tab PO NOW ONE Stop: 12/09/24 14:39 Last Admin: 12/09/24 14:54 Dose: 1 tab Documented By: ARLEY Vital Signs Vital signs: Vital Signs - 8 hr 12/09/24 12:19 12/09/24 12:19 12/09/24 12:20 Temperature 97.6 F Pulse Rate 85 80 Respiratory Rate 20 Blood Pressure 147/60 H 149/60 H Pulse Oximetry 100 100 Oxygen Delivery Method Room Air Room Air 12/09/24 12:30 12/09/24 12:30 12/09/24 12:35 Temperature Pulse Rate 81 88 Respiratory Rate 26 H 16 Blood Pressure 133/64 Pulse Oximetry 97 Oxygen Delivery Method Room Air 12/09/24 13:00 12/09/24 13:22 12/09/24 13:22 Temperature Pulse Rate 88 103 H Respiratory Rate 30 H 28 H Blood Pressure 82/55 L Pulse Oximetry 98 Oxygen Delivery Method 12/09/24 13:26 12/09/24 13:26 12/09/24 13:28 Temperature Pulse Rate 98 H 99 H Respiratory Rate 28 H 28 H Blood Pressure 153/73 H 153/73 H Pulse Oximetry 98 96 Oxygen Delivery Method Room Air 12/09/24 13:30 12/09/24 13:31 12/09/24 13:31 Temperature Pulse Rate 95 H 94 H Respiratory Rate 29 H 31 H Blood Pressure 171/74 H Pulse Oximetry 98 97 Oxygen Delivery Method 12/09/24 14:00 12/09/24 14:01 12/09/24 14:01 Temperature Pulse Rate 97 H 103 H Respiratory Rate 28 H 30 H Blood Pressure 147/62 H Pulse Oximetry 97 97 Oxygen Delivery Method 12/09/24 14:16 12/09/24 14:16 12/09/24 14:30 Temperature Pulse Rate 94 H Respiratory Rate 32 H Blood Pressure 150/65 H 133/69 Pulse Oximetry 98 Oxygen Delivery Method 12/09/24 14:30 12/09/24 15:00 12/09/24 15:03 Temperature Pulse Rate 92 H 91 H 93 H Respiratory Rate 28 H 30 H 18 Blood Pressure Pulse Oximetry 97 98 98 Oxygen Delivery Method Room Air 12/09/24 15:30 12/09/24 16:00 12/09/24 16:30 Temperature Pulse Rate 93 H 97 H 100 H Respiratory Rate 24 Blood Pressure Pulse Oximetry 97 98 95 Oxygen Delivery Method 12/09/24 16:31 12/09/24 16:31 12/09/24 17:00 Temperature Pulse Rate 98 H 102 H Respiratory Rate Blood Pressure 171/72 H Pulse Oximetry 97 96 Oxygen Delivery Method 12/09/24 17:01 12/09/24 17:01 12/09/24 18:43 Temperature Pulse Rate 102 H 99 H Respiratory Rate 24 24 Blood Pressure 147/62 H 147/62 H Pulse Oximetry 96 1 L Oxygen Delivery Method Room Air MDM - Chest Pain Lab Data 12/09/24 12:31 12/09/24 12:31 Labs: Lab Results 12/09/24 12/09/24 Range/Units 12:31 15:15 WBC 9.9 (4.5-11.0) X10^3/uL RBC 4.37 (4.0-5.2) X10^6/uL Hgb 11.6 L (12.0-16.0) g/dL Hct 36.2 (36-46) % MCV 82.9 (80-100) fL MCH 26.6 (26-34) PG MCHC 32.1 (30-36) % RDW 18.5 H (11.6-14.8) % Plt Count 338 (150-400) X10^3/uL Neut % (Auto) 65.0 (50-75) % Lymph % (Auto) 25.1 (25-40) % [place] % (Auto) 6.8 (3-14) % Eos % (Auto) 2.0 (2-4) % Baso % (Auto) 1.1 (0-2) % Neut # (Auto) 6500 (7953-0873) /uL Lymph # (Auto) 2500 (5256-3478) /uL [place] # (Auto) 700 (0-900) /uL Eos # (Auto) 200 (0-450) /uL Baso # (Auto) 100 (0-100) /uL PT 10.0 (9.4-12.5) SECONDS INR 0.9 (0.9-1.3) APTT 32 (25.1-36.5) SECONDS Sodium 136 L (137-145) mmol/L Potassium 3.8 (3.4-5.1) mmol/L Chloride 106 (98-107) mmol/L Carbon Dioxide 24 (22-32) mmol/L BUN 22 H (7-17) mg/dL Creatinine 0.60 (0.52-1.04) mg/dL Estimated GFR > 60 (>60) mL/min BUN/Creatinine Ratio 36.7 H (6-22) Glucose 117 H (80-110) mg/dL Calcium 8.8 (8.4-10.2) mg/dL Magnesium 2.0 (1.6-2.3) mg/dL Total Bilirubin 0.4 (0.2-1.3) mg/dL AST 37 H (14-36) IU/L ALT 40 H (<35) IU/L Alkaline Phosphatase 108 (38-126) U/L Total Creatine Kinase 43 (30-135) U/L Troponin I < 0.012 < 0.012 (0.01-0.034) ng/mL NT-Pro-B Natriuret Pep 63 (<125) pg/mL Total Protein 6.6 (6.3-8.2) g/dL Albumin 4.0 (3.5-5.0) g/dL Globulin 2.6 (1.7-4.1) g/dL Albumin/Globulin Ratio 1.5 (1.0-2.8) Lipase 58 (23-300) U/L Imaging Data CT scan - chest: Radiologist's Impression: [address] [address] [address] Scan Report Signed Patient: Cira Stafford MR#: [id number] : 1960 Acct:[id number] Age/Sex: 64 / F Date of Service: 12/09/24 Loc: ED Accession Number: [id number] Procedure: CT angio chest PE protocol Ordering Provider: Mary Bella D.O. PROCEDURE: CT ANGIO CHEST PE PROTOCOL INDICATIONS: chest pain, sob, recent hospitalization for copd/pna TECHNIQUE: After the administration of intravenous contrast, 2 mm thick sections acquired from the pulmonary apices to the posterior costophrenic angles. 3-dimensional maximum intensity projection (MIP) coronal and sagittal reformats were then acquired through the thorax. For radiation dose reduction, the following was used: automated exposure control, adjustment of mA and/or kV according to patient size. COMPARISON: [facility], CT, CT ABDOMEN PELVIS WO/W CON, 06/28/2020, 16:40. [facility], CT, CT ANGIO CHEST PE, 11/21/2024, 15:13. [facility], CT, CT ABDOMEN PELVIS W CON, 09/14/2024, 17:40. FINDINGS: Image quality: Diagnostic. Pulmonary arteries: Pulmonary arteries are normal in size, and demonstrate no intraluminal filling defects to suggest central pulmonary embolism. Lower Neck: No enlarged lymph nodes. Thyroid: No thyroid nodules which require sonographic follow up, per consensus guidelines. Axillae: No enlarged lymph nodes. Chest Wall: Unremarkable. Bones: No suspicious osseous lesion. Lungs and Pleura: No pneumothorax or pleural effusions. No consolidation or suspicious nodules. Heart: Heart size is normal. Three-vessel coronary artery calcifications. No pericardial effusion. Thoracic Vessels: No aortic aneurysm. Mediastinum and Amy: No enlarged lymph nodes. Esophagus: No wall thickening. No hiatal hernia. Upper Abdomen: Right kidney superior pole complicated cyst measuring 3.7 cm, (), not significantly changed. Measures 3.4 cm in 2020. Measures 38 Hounsfield units. -Left kidney superior pole complicated cyst or mass measuring 1.9 cm, (), unchanged. Measured 2 cm in 2020. Measures 98 Hounsfield units. IMPRESSION: 1. No pulmonary embolism. 2. No acute airspace opacity. 3. Complicated cyst at the superior pole of the kidneys are unchanged. Dictated by: Juma Paz M.D. on 12/09/2024 at 15:01 Approved by: Juma Paz M.D. on 12/09/2024 at 15:10 ECG Data Attestation: I personally reviewed and interpreted this ECG as follows: Prior ECG tracings: available for review Interpretation: Sinus rhythm rate 85 NV 132 QRS is 74 QTC of 445, no acute ST elevation. Patient was prior from 11/25/2024 which shows no acute ST changes. [facility] Narrative Medical decision making narrative: 64-year-old female with substernal chest pain earlier today worse with inspiration patient's blood pressure was low at home 77/48 98% room air for medics received 2 DuoNebs EN route. Labs show white count of 9.9, prior to hospitalization was 7 to 8. Hemoglobin 11.6 platelets of 338. Coags are negative, sodium is 136 BUN 22 creatinine 0.6 with a otherwise normal electrolytes and glucose of 117 calcium is 8.8 bilirubin is normal at 0.4 with a AST of 37 ALT of 40, patient had mild elevation of LFTs and during her hospitalization has not significantly increased lipase of 58 troponins less than 0.012 with a BNP of 63. Repeat troponin is less than 0.012 Chest x-ray shows mild peribronchial thickening possibly atypical infection versus artifact low lung volumes no dense airspace disease or pleural effusions and single study view. Patient had negative chest x-ray on 11/25/2024 but was diagnosed with potential pneumonia so this maybe leftover from patient's prior. EKG shows no acute changes. CT angio to evaluate for PE with a person hospitalization versus pneumonia versus other potential source her chest pain and shortness of breath. CTA shows no pulmonary embolism, no acute airspace opacity complicated cyst superior pole of the kidney is unchanged. No consolidation or suspicious nodules no bone pneumothorax or pleural effusions noted. Patient had DuoNeb EN route with EMS as well as here and Solu-Medrol 125 mg. Patient became more tachypneic after using bedside commode was given additional DuoNeb was given dose of oral oxycodone which she has been taking for pain. Patient has been able to ambulate here in the department tachypnea appears much improved. [place] appropriate for discharge but we will give a longer course of prednisone this time we will continue with antibiotic but I suspect more COPD exacerbation. Patient feeling anxious about being discharged home but has been able to ambulate back and forth to the bathroom without significant difficulty. On re-evaluation patient has not had significant work of breathing slightly wheezy but no worsening. Did offer repeat DuoNebs she defers. She does ask for an additional dose of pain medication. Discussed with Dr. Plata hospitalist he defers and discussed with patient we will DC home but continue with prednisone and antibiotics we will give an additional dose of oral antibiotic here. Discharge Plan Departure Patient Disposition: Home Clinical Impression: Acute exacerbation of chronic obstructive pulmonary disease, Cyst of left kidney Activity Restrictions/Additional Instructions: Follow up with your physician for recheck your workup today suspect you still have some lingering changes and would benefit from continuing your steroids antibiotic little bit longer. Please use inhalers or nebulizers at home every 6 hours or as needed. Prescription sent to [facility]. Incidentally your imaging did show a complicated cyst on your kidney but is on prior imaging without any new changes make sure to share this information with your physician but does not require further changes at this time. Please return for fevers if you are having increasing or new chest pain, shortness of breath, lightheadedness or passing out, coughing up blood, new swelling of your extremities or other new or concerning changes. Prescriptions: New prednisone 10 mg tablets,dose pack See Rx Instructions .ROUTE .COMPLEX Qty: 21 0RF Rx Instructions: orally per package directions azithromycin 250 mg tablet See Rx Instructions .ROUTE .COMPLEX Qty: 6 0RF Rx Instructions: For 250 mg dose pack: take 500 mg today (day 1), then 250 mg for 4 days (days 2-5) No Action clotrimazole 1 % cream 1 applic Topical Q12H PRN (Reason: Rash) Patient Comments: has not taken in month of May. hydroxyzine HCl 25 mg Tablet 25 mg PO TID PRN (Reason: Anxiety) losartan 100 mg Tablet 100 mg PO QAM sertraline 50 mg Tablet 50 mg PO QAM clopidogrel 75 mg Tablet 75 mg PO DAILY Rx Instructions: takes in the evening atorvastatin 40 mg tablet 80 mg PO BEDTIME lidocaine 5 % Adhesive Patch,Medicated 1 patch TOPICAL DAILY PRN (Reason: Pain) Rx Instructions: leave on most painful area for up to 12 hrs acetaminophen 500 mg tablet 1,000 mg PO Q12H carvedilol 3.125 mg tablet 3.125 mg PO BID hydrochlorothiazide 25 mg tablet 25 mg PO DAILY metformin 500 mg tablet extended release 24 hr 500 mg PO DAILY oxycodone 5 mg tablet 5 mg PO Q8H MDD 15 mg PRN (Reason: Pain (Scale Score 4-6)) albuterol sulfate 90 mcg/actuation HFA aerosol inhaler 2 puff inhalation Q4H PRN (Reason: Wheezing) metaxalone 800 mg Tablet 800 mg PO TID PRN (Reason: Muscle spasms) prednisone 20 mg tablet 40 mg PO DAILY Qty: 20 0RF Referrals: Jairo Hart MD [Primary Care Provider] - Stand Alone Forms: Patient Portal/API/Survey
--- NOTE | 2024-12-09 14:38 | DI.CT.S_ITS ---
PROCEDURE: CT ANGIO CHEST PE PROTOCOL INDICATIONS: chest pain, sob, recent hospitalization for copd/pna TECHNIQUE: After the administration of intravenous contrast, 2 mm thick sections acquired from the pulmonary apices to the posterior costophrenic angles. 3-dimensional maximum intensity projection (MIP) coronal and sagittal reformats were then acquired through the thorax. For radiation dose reduction, the following was used: automated exposure control, adjustment of mA and/or kV according to patient size. COMPARISON: [facility], CT, CT ABDOMEN PELVIS WO/W CON, 06/28/2020, 16:40. [facility], CT, CT ANGIO CHEST PE, 11/21/2024, 15:13. [facility], CT, CT ABDOMEN PELVIS W CON, 09/14/2024, 17:40. FINDINGS: Image quality: Diagnostic. Pulmonary arteries: Pulmonary arteries are normal in size, and demonstrate no intraluminal filling defects to suggest central pulmonary embolism. Lower Neck: No enlarged lymph nodes. Thyroid: No thyroid nodules which require sonographic follow up, per consensus guidelines. Axillae: No enlarged lymph nodes. Chest Wall: Unremarkable. Bones: No suspicious osseous lesion. Lungs and Pleura: No pneumothorax or pleural effusions. No consolidation or suspicious nodules. Heart: Heart size is normal. Three-vessel coronary artery calcifications. No pericardial effusion. Thoracic Vessels: No aortic aneurysm. Mediastinum and Amy: No enlarged lymph nodes. Esophagus: No wall thickening. No hiatal hernia. Upper Abdomen: Right kidney superior pole complicated cyst measuring 3.7 cm, (), not significantly changed. Measures 3.4 cm in 2020. Measures 38 Hounsfield units. -Left kidney superior pole complicated cyst or mass measuring 1.9 cm, (), unchanged. Measured 2 cm in 2020. Measures 98 Hounsfield units. IMPRESSION: 1. No pulmonary embolism. 2. No acute airspace opacity. 3. Complicated cyst at the superior pole of the kidneys are unchanged. Dictated by: Juma Paz M.D. on 12/09/2024 at 15:01 Approved by: Juma Paz M.D. on 12/09/2024 at 15:10
[2024-12-09] MEDS: OXYCODONE/ACETAMINOPHEN 5/325 TABLET 1 TAB PO (14:54)
[2024-12-09 15:46] LABS: Troponin I < 0.012 ng/mL (0.01-0.034)
--- NOTE | 2024-12-09 16:25 | PC.NURSE ---
97% 02 RA with Ambulation
[2024-12-09] MEDS: OXYCODONE IR 5 MG TABLET PO (18:31)
== END 2024-12-09 18:46 | disposition home or self-care (01) ==
PROVIDERS: Emergency Provider Emergency Medicine; PCP Student in an Organized Health Care Education/Training Program
DX: J44.1 Chronic obstructive pulmonary disease with (acute) exacerbation (principal); N28.1 Cyst of kidney, acquired; R05.9 Cough, unspecified
CPT/HCPCS: 36415; 71045; 71275; 80053; 82550; 83690; 83735; 83880; 84484; 85025; 85610; 85730; 93005; 93010; 94640; 96374; 99284; J2919; Q9967

== ENCOUNTER 2025-08-16 20:17 | Inpatient (IN) | payer MEDICARE, MEDICAID, SELFPAY ==
[2024-11-25 21:59] VITALS: BMI 34.0
[2025-08-16] VITALS (13 sets, daily range): BP systolic 123–157; BP diastolic 65–81; PULSE 86–94; RESP 24–41; TEMP 35.7–36.9; O2SAT 97–98; BMI 36.2; BMI 37.3
--- NOTE | 2025-08-16 20:24 | EKG_ITS ---
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
--- NOTE | 2025-08-16 20:25 | ED.SOB ---
HPI - SOB/Dyspnea General Chief Complaint: Shortness of Breath/Dyspnea Stated Complaint: chest pain Time Seen by Provider: 08/16/25 20:19 Source: patient, EMS, RN notes reviewed and old records reviewed Mode of arrival: EMS Limitations: no limitations History of Present Illness HPI Narrative: 65-year-old female history of hypertension, [id number] diabetes, depression, dyslipidemia, CAD, COPD non O2 dependent, prior stroke and seizure disorder presents with complaint of difficulty with breathing. Patient notes she had COVID about 2 weeks ago. She states she improved and then started developing increasing shortness of breath and difficulty with breathing with fevers over the last 24-48 hours. Patient states she has had a cough she describes green phlegm. She describes chest discomfort and shortness of breath. She tried her inhalers at home with no improvement. She notes little bit of nausea and vomiting earlier today but none currently. No other GI or urinary symptoms. No new swelling in her extremities. She received a DuoNeb with EMS she states minimal improvement although they noted significant improvement her respiratory rate and work of breathing. States she has received oral steroids in the past but does not currently taking any. Home medications include sertraline, losartan, carvedilol, metformin, clopidogrel, atorvastatin, trazodone and nebulized/inhaler. States she has had a hip replacement year ago January sounds like she had a seroma afterwards that has drained approximately 6 months ago. She also has a prior knee surgery. Reports allergies to aspirin and NSAIDs which he describes anaphylaxis, also allergies to tramadol and gabapentin but can take oxycodone without issue. Remote history of tobacco use, no alcohol no recreational drugs. Related Data Home Medications ?Medication ?Instructions ?Recorded ?Confirmed clotrimazole 1 % topical cream 1 applic topical Q12H PRN Rash 04/29/18 11/26/24 hydroxyzine HCl 25 mg tablet 25 mg PO TID PRN Anxiety 06/26/20 11/26/24 losartan 100 mg tablet 100 mg PO QAM 06/26/20 11/26/24 sertraline 50 mg tablet 50 mg PO QAM 06/26/20 11/26/24 clopidogrel 75 mg tablet 75 mg PO DAILY 06/29/20 11/26/24 lidocaine 5 % topical patch 1 patch topical DAILY PRN Pain 02/10/22 11/26/24 atorvastatin 40 mg tablet 80 mg PO BEDTIME 10/16/23 11/26/24 acetaminophen 500 mg tablet 1,000 mg PO Q12H 11/26/24 11/26/24 albuterol sulfate 90 mcg/actuation 2 puff inhalation Q4H PRN Wheezing 11/26/24 11/26/24 aerosol inhaler carvedilol 3.125 mg tablet 3.125 mg PO BID 11/26/24 11/26/24 hydrochlorothiazide 25 mg tablet 25 mg PO DAILY 11/26/24 11/26/24 metaxalone 800 mg tablet 800 mg PO TID PRN Muscle spasms 11/26/24 11/26/24 metformin 500 mg tablet,extended 500 mg PO DAILY 11/26/24 11/26/24 release 24 hr oxycodone 5 mg tablet 5 mg PO Q8H PRN Pain (Scale Score 11/26/24 11/26/24 4-6) Previous Rx's ?Medication ?Instructions ?Recorded prednisone 20 mg tablet 40 mg (2 x 20 mg) PO DAILY #20 tabs 11/28/24 azithromycin 250 mg tablet See Rx Instructions PO .COMPLEX #6 12/09/24 tabs prednisone 10 mg tablets in a dose See Rx Instructions PO .COMPLEX 12/09/24 pack #21 ea Allergies Allergy/AdvReac Type Severity Reaction Status Date / Time aspirin (ASPIRIN) Allergy Severe Throat Verified 11/25/24 19:55 closes, eye itching, difficulty breathing buprenorphine (From Suboxone) Allergy Severe Throat Verified 11/25/24 19:55 closing, vomiting ibuprofen (IBUPROFEN) Allergy Severe Throat Verified 11/25/24 19:55 closes, eye itching, difficulty breathing ketorolac (From TORADOL) Allergy Severe Throat Verified 11/25/24 19:55 closes, eye itching, difficulty breathing methadone Allergy Severe Hard time Verified 11/25/24 19:55 breathing, my vital signs were dropping naloxone (From Suboxone) Allergy Severe Throat Verified 11/25/24 19:55 closing, vomiting NSAIDS (Non-Steroidal Allergy Severe Throat Verified 11/25/24 19:55 Anti-Inflamma closes, eye itching, difficulty breathing tramadol (TRAMADOL) Allergy Severe Rash, my Verified 11/25/24 19:55 throat was closing Beef Containing Products Allergy Hives Verified 11/25/24 19:55 duloxetine Allergy Rash Verified 11/25/24 19:55 gabapentin AdvReac Gastrointestinal Verified 11/25/24 19:55 Upset Review of Systems Review of Systems ROS Unobtainable: All systems reviewed & are unremarkable except as noted in HPI and below Patient History Medical History Myocardial infarction Hepatic steatosis Drug-seeking behavior Seizures Peptic ulcer disease PTSD (post-traumatic stress disorder) Depression Easy bruisability Osteoarthritis GERD (gastroesophageal reflux disease) HLD (hyperlipidemia) HTN (hypertension) Asthma Hearing loss Prediabetes Other chronic pain Tinea pedis Pain in right hip Anxiety Coronary artery disease COPD (chronic obstructive pulmonary disease) Stroke (1999) Surgical History Hx of colonoscopy Hx of tonsillectomy History of surgery on wrist History of bilateral knee replacement Social History household members: none alcohol intake: never tobacco type: cigarettes alcohol intake frequency: holidays/special occasions only Exam Narrative Exam Narrative: GEN: Obese female, alert and oriented x 3, patient appears to be in moderate distress. HEENT: Atraumatic, pupils are equal round reactive to light, extraocular movements are intact, nares are clear, there is no conjunctival pallor. Throat is clear without any exudates, erythema, tonsillar enlargement or uvular deviation HEART: Tachycardic but regular rate and rhythm without murmur, clicks, rubs. Pulses are equal in upper and lower extremities. No edema bilateral lower extremities. LUNGS:Lungs have wheeze bilaterally but positive for tachypnea, rales, crackles, chest moves symmetrically, patient's speaks in 4-5 word. Has frequent cough. ABD:bowel sounds normal, soft, non-tender, no guarding, rebound, rigidity, no masses noted, no hepatosplenomegaly :No CVA tenderness MSCL: Non-tender, no muscle atrophy, muscles strength 5/5 upper and lower extremities, full range of motion, normal gait NEURO:CN 2-12 intact, sensation normal. SKIN: No rash, erythema or other skin changes Initial Vital Signs Initial Vital Signs: Vital Signs Temperature 98.4 F 08/16/25 20:19 Pulse Rate 88 08/16/25 20:19 Respiratory Rate 26 H 08/16/25 20:19 Blood Pressure 150/81 H 08/16/25 20:19 Pulse Oximetry 98 08/16/25 20:19 Oxygen Delivery Method Room Air 08/16/25 20:19 Course Orders Ordered: ED Orders 08/16/25 20:24 Complete Blood Count AUTO DIFF Stat Comprehensive Metabolic Panel Stat [facility] Creatine Kinase MB Routine Magnesium Stat NT-proBNP (BNP-Adult 18+) Stat PTT Partial Thromboplastin Reinaldo Stat Procalcitonin Stat Prothrombin Time INR Stat Troponin I Stat EKG-12 Lead Stat RT Consult Eval and Treat NOW 08/16/25 20:30 Covid-19 + FLU A/B + RSV - PCR Stat 08/16/25 20:53 Ictotest Urine Stat 08/16/25 20:57 Chest [XR chest 1V] Stat 08/16/25 21:12 Blood Culture Stat Discontinued Medications Albuterol (Albuterol 2.5 Mg/3 Ml Neb (Adult)) 10 mg INH NOW ONE Stop: 08/16/25 21:22 Albuterol/Ipratropium (Albuterol/Ipratropium 3 Ml Ampul) 3 ml INH NOW ONE Stop: 08/16/25 20:44 Last Admin: 08/16/25 20:50 Dose: 3 ml Documented By: Magnesium Sulfate (Magnesium Sulfate) 2 gm in 50 mls @ 150 mls/hr IV NOW ONE Stop: 08/16/25 21:40 Last Infusion: 08/16/25 21:56 Dose: Infused Documented By: AMISH Co-signed By: DINO Admin: 08/16/25 21:25 Dose: 150 mls/hr Documented By: AMISH Co-signed By: WES Methylprednisolone (Methylprednisolone Succ 125 Mg/2 Ml Vial) 125 mg IV NOW ONE Stop: 08/16/25 20:25 Last Admin: 08/16/25 20:37 Dose: 125 mg Documented By: AMISH Oxycodone/Acetaminophen (Oxycodone/Acetaminophen 5/325 Tablet) 1 tab PO NOW ONE Stop: 08/16/25 20:30 Last Admin: 08/16/25 20:37 Dose: 1 tab Documented By: AMISH Vital Signs Vital signs: Vital Signs - 8 hr 08/16/25 20:19 08/16/25 20:20 08/16/25 20:21 Temperature 98.4 F Pulse Rate 88 89 91 H Respiratory Rate 26 H 24 Blood Pressure 150/81 H Pulse Oximetry 98 98 98 Oxygen Delivery Method Room Air 08/16/25 20:21 08/16/25 20:30 08/16/25 20:30 Temperature Pulse Rate 87 Respiratory Rate Blood Pressure 150/81 H 151/73 H Pulse Oximetry 98 Oxygen Delivery Method 08/16/25 20:52 Temperature Pulse Rate 93 H Respiratory Rate 41 H Blood Pressure Pulse Oximetry 97 Oxygen Delivery Method MDM - SOB/Dyspnea Lab Data 08/16/25 20:24 08/16/25 20:24 Labs: Lab Results 08/16/25 08/16/25 08/16/25 Range/Units 20:24 20:30 20:53 WBC 9.3 (4.5-11.0) X10^3/uL RBC 4.49 (4.0-5.2) X10^6/uL Hgb 12.8 (12.0-16.0) g/dL Hct 39.2 (36-46) % MCV 87.4 (80-100) fL MCH 28.5 (26-34) PG MCHC 32.6 (30-36) % RDW 15.5 H (11.6-14.8) % Plt Count 326 (150-400) X10^3/uL Neut % (Auto) 74.0 (50-75) % Lymph % (Auto) 16.8 L (25-40) % [place] % (Auto) 7.7 (3-14) % Eos % (Auto) 0.5 L (2-4) % Baso % (Auto) 1.0 (0-2) % Neut # (Auto) 6900 (6811-4047) /uL Lymph # (Auto) 1600 (2052-6291) /uL [place] # (Auto) 700 (0-900) /uL Eos # (Auto) 0 (0-450) /uL Baso # (Auto) 100 (0-100) /uL PT 9.8 (9.4-12.5) SECONDS INR 0.9 (0.9-1.3) APTT 27 (25.1-36.5) SECONDS Sodium 141 (137-145) mmol/L Potassium 3.9 (3.4-5.1) mmol/L Chloride 107 (98-107) mmol/L Carbon Dioxide 27 (22-32) mmol/L BUN 25 H (7-17) mg/dL Creatinine 0.67 (0.52-1.04) mg/dL Estimated GFR > 60 (>60) mL/min BUN/Creatinine Ratio 37.3 H (6-22) Glucose 135 H (70-99) mg/dL Calcium 9.2 (8.4-10.2) mg/dL Magnesium 1.9 (1.6-2.3) mg/dL Total Bilirubin 0.3 (0.2-1.3) mg/dL AST 31 (14-36) IU/L ALT 24 (<35) IU/L Alkaline Phosphatase 94 (38-126) U/L Troponin I < 0.012 (0.01-0.034) ng/mL NT-Pro-B Natriuret Pep 149 H (<125) pg/mL Total Protein 7.2 (6.3-8.2) g/dL Albumin 4.2 (3.5-5.0) g/dL Globulin 3.0 (1.7-4.1) g/dL Albumin/Globulin Ratio 1.4 (1.0-2.8) Procalcitonin 0.038 (<0.5) ng/mL Ur Bilirubin Confirm Negative (Negative) SARS-CoV-2 (PCR) Negative (Negative) Influenza A (RT-PCR) Flu a negative (NEGATIVE) Influenza B (RT-PCR) Flu b negative (NEGATIVE) RSV (PCR) Negative (Negative) Urine Dip Bedside Urine Glucose Negative Bedside Urine Bilirubin + 1 Bedside Urine Ketone - Negative Urine Specific [place] 1.020 Bedside Urine Occult Blood - Negative Bedside Urine pH 6.0 Bedside Urine Protein - Negative Bedside Urine Urobilinogen - Negative Bedside Urine Nitrite - Negative Bedside Urine Leukocytes - Negative Esterase ECG Data Attestation: I personally reviewed and interpreted this ECG as follows: Prior ECG tracings: available for review Interpretation: EKG sinus rhythm rate 89 NH 148 QRS is 78 QTC 447, no acute ST-elevation or depression appreciated.? Patient has prior from 12/09/[address] elevation or depression appreciated MDM Narrative Medical decision making narrative: Labs white count of 9.3 hemoglobin 12.8 platelets of 326, coags are normal, chemistries show BUN 25 otherwise normal electrolytes glucose is 135 creatinine 0.67 LFTs are normal troponins less than 0.012 with a BNP of 149 and a procalcitonin of 0.38 COVID/influenza/RSV is negative Chest x-ray mild pulmonary vascular congestion no definite focal infiltrates, pleural effusion or pneumothorax. EKG sinus rhythm rate 89 NH 148 QRS is 78 QTC 447, no acute ST-elevation or depression appreciated. Patient has prior from 12/09/[address] elevation or depression appreciated. Patient had 2 DuoNebs with EMS, an additional DuoNeb here (3 total), 10 mg of albuterol, Mag sulfate 2 g went tablet of oxycodone/acetaminophen. Has had some improvement of her work of breathing but still has some and little tachypneic, her wheeze has not improved has persistent cough and tightness. Feel patient would benefit from observation overnight, with regular nebs and steroids. Page hospitalist at [phone] Spoke with hospitalist, Dr. Ness @ [phone] who accepts for inpatient admission. Discharge Plan Departure Patient Disposition: Admitted As Inpatient Clinical Impression: Acute exacerbation of chronic obstructive pulmonary disease Admit Date/Time: 08/16/25 22:30 Admit Provider: Leandro Ness
[2025-08-16 20:37] LABS: Add Manual Diff / Slide Review NO; Hematocrit 39.2 % (36-46); Hemoglobin 12.8 g/dL (12.0-16.0); Lymphocytes Absolute Auto 1600 /uL (1100-4500); Mean Corpuscular HGB Conc 32.6 % (30-36); Mean Corpuscular Hemoglobin 28.5 PG (26-34); Mean Corpuscular Volume 87.4 fL (80-100); Platelet Count 326 X10^3/uL (150-400)
[2025-08-16] MEDS: methylPREDNISolone succ 125 MG/2 ML VIAL IV (20:37)
[2025-08-16 20:47] LABS: INR 0.9 (0.9-1.3); Prothrombin Time 9.8 SECONDS (9.4-12.5)
[2025-08-16 20:50] LABS: PTT Partial Thromboplastin Tim 27 SECONDS (25.1-36.5)
[2025-08-16] MEDS: ALBUTEROL/IPRATROPIUM 3 ML AMPUL INH (20:50)
[2025-08-16 20:51] LABS: Magnesium 1.9 mg/dL (1.6-2.3)
[2025-08-16 20:52] LABS: Alanine Aminotransferase 24 IU/L (<35); Albumin 4.2 g/dL (3.5-5.0); Albumin Globulin Ratio 1.4 (1.0-2.8); Alkaline Phosphatase 94 U/L (38-126); Blood Urea Nitrogen 25 mg/dL (7-17); Calcium 9.2 mg/dL (8.4-10.2); Carbon Dioxide 27 mmol/L (22-32); Chloride 107 mmol/L (98-107); Estimated Glomerular Filt Rate > 60 mL/min (>60); Globulin 3.0 g/dL (1.7-4.1); Glucose 135 mg/dL (70-99); HEMOLYSIS 33 (0-50); Potassium 3.9 mmol/L (3.4-5.1); Sodium 141 mmol/L (137-145); Total Protein 7.2 g/dL (6.3-8.2)
--- NOTE | 2025-08-16 20:57 | DI.RAD.S_ITS ---
PROCEDURE: XR CHEST 1V INDICATIONS: shortness of breath TECHNIQUE: One view of the chest was acquired. COMPARISON: [facility], CR, XR CHEST 1V, 12/09/2024, 12:52. FINDINGS: Surgical changes and devices: None. Lungs and pleura: Significant pulmonary vascular congestion. No pleural effusions or pneumothorax. Mediastinum: Mediastinal contours appear normal. Heart size is normal. Bones and chest wall: No suspicious bony lesions. Overlying soft tissues appear unremarkable. IMPRESSION: Mild pulmonary vascular congestion. No definite focal infiltrate, pleural effusion or pneumothorax. Dictated by: Leoncio Adair M.D. on 08/16/2025 at 21:15 Approved by: Leoncio Adair M.D. on 08/16/2025 at 21:15
[2025-08-16 21:04] LABS: NT-proBNP (BNP-Adult 18+) 149 pg/mL (<125); Troponin I < 0.012 ng/mL (0.01-0.034)
[2025-08-16 21:07] LABS: Ictotest Urine Negative (Negative)
[2025-08-16 21:09] LABS: Procalcitonin 0.038 ng/mL (<0.5)
[2025-08-16 21:12] LABS: Influenza A - CEPHEID Flu A NEGATIVE (NEGATIVE); Influenza B - CEPHEID Flu B NEGATIVE (NEGATIVE)
[2025-08-16 21:25] LABS: COVID-19 CEPHEID 4-PLEX PCR Negative (Negative)
[2025-08-16] MEDS: MAGNESIUM SULFATE 2 GM/50 ML PIGGYBACK IV (21:25)
[2025-08-16] MEDS: AZITHROMYCIN 250 MG TABLET 500 MG PO (23:21)
[2025-08-16] MEDS: ACETAMINOPHEN 325 MG TABLET 975 MG PO (23:21)
[2025-08-16] MEDS: MORPHINE 4 MG/ML INJ IV (23:25)
[2025-08-17] VITALS (14 sets, daily range): BP systolic 115–169; BP diastolic 64–90; PULSE 79–104; RESP 20–25; TEMP 35.7–36.8; O2SAT 92–99
--- NOTE | 2025-08-17 01:05 | PC.ADMIT ---
Addendum entered by Kathya Moe RN 08/17/25 02:39: Patient complaining of chest pain radiating down her right arm. BP 155/74 with HR of 90. EKG done which is showing NSR. Respirations are labored and is SOB with audible expiratory wheezes. RT here to administer nebulizer Rx. Medicated with Tessalon for her cough. Too early to repeat Morphine as she last had that at 2335. Dr. Ness informed. Original Note: [id number] [facility] Admission Note: The patient,Cira Stafford,65 y/o, was given written information regarding hospital policies, unit procedures and contact persons. Patient's smoking status: . Vital Signs - 8 hr 08/16/25 20:19 08/16/25 20:20 08/16/25 20:21 Temperature 98.4 F Pulse Rate 88 89 91 H Respiratory Rate 26 H 24 Blood Pressure 150/81 H Pulse Oximetry 98 98 98 Oxygen Delivery Method Room Air Oxygen Flow Rate 08/16/25 20:21 08/16/25 20:30 08/16/25 20:30 Temperature Pulse Rate 87 Respiratory Rate Blood Pressure 150/81 H 151/73 H Pulse Oximetry 98 Oxygen Delivery Method Oxygen Flow Rate 08/16/25 20:52 08/16/25 21:00 08/16/25 21:01 Temperature Pulse Rate 93 H 92 H 92 H Respiratory Rate 41 H 25 H Blood Pressure Pulse Oximetry 97 97 97 Oxygen Delivery Method Oxygen Flow Rate 08/16/25 21:01 08/16/25 21:30 08/16/25 21:31 Temperature Pulse Rate 86 Respiratory Rate Blood Pressure 139/65 133/65 Pulse Oximetry 97 Oxygen Delivery Method Oxygen Flow Rate 08/16/25 21:31 08/16/25 22:00 08/16/25 22:00 Temperature Pulse Rate 86 91 H Respiratory Rate 24 Blood Pressure 123/72 Pulse Oximetry 97 97 Oxygen Delivery Method Room Air Oxygen Flow Rate 08/16/25 22:30 08/16/25 22:30 08/16/25 23:02 Temperature 96.2 F L Pulse Rate 92 H 94 H Respiratory Rate 25 H 24 Blood Pressure 128/72 157/79 H Pulse Oximetry 98 98 Oxygen Delivery Method Room Air Oxygen Flow Rate 08/16/25 23:02 08/16/25 23:15 08/16/25 23:25 Temperature 96.2 F L Pulse Rate 94 H Respiratory Rate 24 Blood Pressure 157/79 H Pulse Oximetry 97 97 Oxygen Delivery Method Nasal Cannula Room Air Oxygen Flow Rate 0 1 08/17/25 00:00 Temperature 96.2 F L Pulse Rate 94 H Respiratory Rate 24 Blood Pressure 157/79 H Pulse Oximetry 98 Oxygen Delivery Method Oxygen Flow Rate Patient admitted to room 225 from ER per wheelchair. Is alert and oriented. Breath sounds coarse and tight with expiratory wheezes throughout. SOB at rest and increases with exertion. She has frequent cough which she reports has been productive of green sputum. RA sat is 97% and is on continuous oximetry. HRR w/BP of 157/79. Denied nausea. BT present and abdomen is soft. Denied any dysuria, frequency or urgency. Is able to move herself independently in bed but instructed to call for staff assist when getting up to bathroom. Reports 10/10 pain in chest from coughing and in right hip so medicated with scheduled Tylenol as well as IV Morphine with pain decreasing to 8/10 which she states is tolerable. Oriented to call light and bed controls. Fall risk score is high and bed alarm is activated.
--- NOTE | 2025-08-17 01:52 | PM.HP.1 ---
History of Present Illness History of Present Illness Chief complaint: chest pain Narrative: 65 years old female with history of COPD, hyperlipidemia, CAD, CHF, anxiety, diabetes mellitus type 2, depression, insomnia presented to the ER with shortness of breath and productive cough with greenish phlegm's for the last 2 weeks. The patient had COVID 2 weeks ago and seems to not recovered completely. She also reports some chest discomfort on coughing and taking deep breath. Denies any fever, palpitations, nausea, vomiting, abdominal pain, diarrhea or dysuria. Remote history of smoking. Denies any PND orthopnea or swelling of the legs. Laboratory shows WBC 9.3, H&H 12.8/39.2, sodium 141, potassium 3.9, creatinine 0.67, blood sugar 135, magnesium 1.9, LFT normal, troponin 0.0 12, BNP 149, respiratory panel negative, UA negative, EKG shows sinus rhythm without any acute ST elevation or depression. Chest x-ray shows mild pulmonary vascular congestion. In the ER she was received multiple DuoNebs, albuterol, magnesium 2 g IV, Percocet, Solu-Medrol 125 mg IV, azithromycin 500 mg p.o. [facility] Medical History Myocardial infarction Hepatic steatosis Drug-seeking behavior Seizures Peptic ulcer disease PTSD (post-traumatic stress disorder) Depression Easy bruisability Osteoarthritis GERD (gastroesophageal reflux disease) HLD (hyperlipidemia) HTN (hypertension) Asthma Hearing loss Prediabetes Other chronic pain Tinea pedis Pain in right hip Anxiety Coronary artery disease COPD (chronic obstructive pulmonary disease) Stroke (1999) Surgical History Hx of colonoscopy Hx of tonsillectomy History of surgery on wrist History of bilateral knee replacement Social History household members: none alcohol intake: never Meds Home Medications and Allergies Home Medications ?Medication ?Instructions ?Recorded ?Confirmed ?Type clotrimazole 1 % topical cream 1 applic topical Q12H PRN Rash 04/29/18 08/16/25 History hydroxyzine HCl 25 mg tablet 25 mg PO TID PRN Anxiety 06/26/20 08/16/25 History losartan 100 mg tablet 100 mg PO QAM 06/26/20 08/16/25 History sertraline 50 mg tablet 50 mg PO QAM 06/26/20 08/16/25 History clopidogrel 75 mg tablet 75 mg PO DAILY 06/29/20 08/16/25 History lidocaine 5 % topical patch 1 patch topical DAILY PRN Pain 02/10/22 08/16/25 History atorvastatin 40 mg tablet 80 mg PO BEDTIME 10/16/23 08/16/25 History acetaminophen 500 mg tablet 1,000 mg PO Q12H 11/26/24 08/16/25 History albuterol sulfate 90 mcg/actuation 2 puff inhalation Q4H PRN Wheezing 11/26/24 08/16/25 History aerosol inhaler carvedilol 3.125 mg tablet 3.125 mg PO BID 11/26/24 08/16/25 History hydrochlorothiazide 25 mg tablet 25 mg PO DAILY 11/26/24 08/16/25 History metaxalone 800 mg tablet 800 mg PO TID PRN Muscle spasms 11/26/24 08/16/25 History metformin 500 mg tablet,extended 500 mg PO DAILY 11/26/24 08/16/25 History release 24 hr oxycodone 5 mg tablet 5 mg PO Q8H PRN Pain (Scale Score 11/26/24 08/16/25 History 4-6) trazodone 50 mg tablet 50 mg PO ONCE PM 08/16/25 08/16/25 History Allergies Allergy/AdvReac Type Severity Reaction Status Date / Time aspirin (ASPIRIN) Allergy Severe Throat Verified 08/16/25 22:58 closes, eye itching, difficulty breathing buprenorphine (From Suboxone) Allergy Severe Throat Verified 08/16/25 22:58 closing, vomiting ibuprofen (IBUPROFEN) Allergy Severe Throat Verified 08/16/25 22:58 closes, eye itching, difficulty breathing ketorolac (From TORADOL) Allergy Severe Throat Verified 08/16/25 22:58 closes, eye itching, difficulty breathing methadone Allergy Severe Hard time Verified 08/16/25 22:58 breathing, my vital signs were dropping naloxone (From Suboxone) Allergy Severe Throat Verified 08/16/25 22:58 closing, vomiting NSAIDS (Non-Steroidal Allergy Severe Throat Verified 08/16/25 22:58 Anti-Inflamma closes, eye itching, difficulty breathing tramadol (TRAMADOL) Allergy Severe Rash, my Verified 08/16/25 22:58 throat was closing Beef Containing Products Allergy Hives Verified 08/16/25 22:58 duloxetine Allergy Rash Verified 08/16/25 22:58 gabapentin AdvReac Gastrointestinal Verified 08/16/25 22:58 Upset Review of Systems Review of Systems ROS: Yes All systems reviewed with the patient and are negative except as otherwise documented Constitutional Constitutional: Reports as per HPI and Reports system reviewed and no additional complaints, except as documented Eyes Eyes: Reports as per HPI and Reports system reviewed and no additional complaints, except as documented ENT Ears, Nose, Mouth, and Throat: Yes as per HPI and Yes system reviewed and no additional complaints, except as documented Cardiovascular Cardiovascular: Reports system reviewed and no additional complaints, except as documented Respiratory Respiratory: Reports system reviewed and no additional complaints, except as documented Gastrointestinal Gastrointestinal: Reports system reviewed and no additional complaints, except as documented Genitourinary Genitourinary: Reports system reviewed and no additional complaints, except as documented Musculoskeletal Musculoskeletal: Reports system reviewed and no additional complaints, except as documented, Reports abnormal gait and Reports numbness Neurologic Neurologic: Reports system reviewed and no additional complaints, except as documented, Reports abnormal gait, Reports confusion and Reports numbness Psychiatric Psychiatric: Reports system reviewed and no additional complaints, except as documented and Reports confusion Exam Vital Signs (past 8 hours): - 08/16/25 20:19 08/16/25 20:20 08/16/25 20:21 Temperature 98.4 F Pulse Rate 88 89 91 H Respiratory Rate 26 H 24 Blood Pressure 150/81 H Pulse Oximetry 98 98 98 Oxygen Delivery Method Room Air Oxygen Flow Rate 08/16/25 20:21 08/16/25 20:30 08/16/25 20:30 Temperature Pulse Rate 87 Respiratory Rate Blood Pressure 150/81 H 151/73 H Pulse Oximetry 98 Oxygen Delivery Method Oxygen Flow Rate 08/16/25 20:52 08/16/25 21:00 08/16/25 21:01 Temperature Pulse Rate 93 H 92 H 92 H Respiratory Rate 41 H 25 H Blood Pressure Pulse Oximetry 97 97 97 Oxygen Delivery Method Oxygen Flow Rate 08/16/25 21:01 08/16/25 21:30 08/16/25 21:31 Temperature Pulse Rate 86 Respiratory Rate Blood Pressure 139/65 133/65 Pulse Oximetry 97 Oxygen Delivery Method Oxygen Flow Rate 08/16/25 21:31 08/16/25 22:00 08/16/25 22:00 Temperature Pulse Rate 86 91 H Respiratory Rate 24 Blood Pressure 123/72 Pulse Oximetry 97 97 Oxygen Delivery Method Room Air Oxygen Flow Rate 08/16/25 22:30 08/16/25 22:30 08/16/25 23:02 Temperature 96.2 F L Pulse Rate 92 H 94 H Respiratory Rate 25 H 24 Blood Pressure 128/72 157/79 H Pulse Oximetry 98 98 Oxygen Delivery Method Room Air Oxygen Flow Rate 08/16/25 23:02 08/16/25 23:15 08/16/25 23:25 Temperature 96.2 F L Pulse Rate 94 H Respiratory Rate 24 Blood Pressure 157/79 H Pulse Oximetry 97 97 Oxygen Delivery Method Nasal Cannula Room Air Oxygen Flow Rate 0 1 08/17/25 00:00 08/17/25 00:00 Temperature 96.2 F L Pulse Rate 94 H Respiratory Rate 24 Blood Pressure 157/79 H Pulse Oximetry 98 Oxygen Delivery Method Oxygen Flow Rate 0 Oxygen Delivery Method Room Air Oxygen Flow Rate 0 Const General: cooperative, comfortable and well developed Orientation: alert and oriented x3 HENMT Head: normal to inspection, normocephalic and atraumatic Face and sinus: normal facial exam Mouth: oral mucosae normal and moist mucous membranes Throat: posterior oropharynx normal Eyes General: appearance normal, both eyes and all related structures Pupils: PERRL EOM: EOM intact bilaterally Neck Neck: normal visual inspection and full ROM Chest Chest: normal inspection of the chest Resp Effort & Inspection: normal respiratory effort and able to speak in complete sentences Auscultation: clear to auscultation bilaterally Cardio Palpation: normal PMI Rate: regular rate Rhythm: regular rhythm Heart Sounds: S1 normal and S2 normal GI Inspection: normal to inspection Palpation: soft and no hepatosplenomegaly Auscultation: normal bowel sounds Skin General: no rashes or lesions noted Lesions: no lesions Rashes: no rashes Trauma: no lacerations or abrasions Neuro General: patient alert, patient awake, patient oriented x3 and no focal motor deficits Cranial Nerves: CN's II-XI intact bilaterally Cognition: normal cognition Speech: speech normal Gait: normal gait Motor: muscle tone normal throughout Sensory Exam: no sensory deficits noted Extrem General: full ROM and no calf tenderness Psych Appearance: grossly normal Mental Status: mental status grossly normal Speech and Movement: speech and movement normal Objective Labs 08/16/25 20:24 08/16/25 20:24 Labs: Laboratory Results - last 24 hr 08/16/25 08/16/25 08/16/25 20:24 20:30 20:53 WBC 9.3 RBC 4.49 Hgb 12.8 Hct 39.2 MCV 87.4 MCH 28.5 MCHC 32.6 RDW 15.5 H Plt Count 326 Neut % (Auto) 74.0 Lymph % (Auto) 16.8 L [place] % (Auto) 7.7 Eos % (Auto) 0.5 L Baso % (Auto) 1.0 Neut # (Auto) 6900 Lymph # (Auto) 1600 [place] # (Auto) 700 Eos # (Auto) 0 Baso # (Auto) 100 PT 9.8 INR 0.9 APTT 27 Sodium 141 Potassium 3.9 Chloride 107 Carbon Dioxide 27 BUN 25 H Creatinine 0.67 Estimated GFR > 60 BUN/Creatinine Ratio 37.3 H Glucose 135 H POC Whole Bld Glucose Calcium 9.2 Magnesium 1.9 Total Bilirubin 0.3 AST 31 ALT 24 Alkaline Phosphatase 94 Troponin I < 0.012 NT-Pro-B Natriuret Pep 149 H Total Protein 7.2 Albumin 4.2 Globulin 3.0 Albumin/Globulin Ratio 1.4 Procalcitonin 0.038 Ur Bilirubin Confirm Negative SARS-CoV-2 (PCR) Negative Influenza A (RT-PCR) Flu a negative Influenza B (RT-PCR) Flu b negative RSV (PCR) Negative 08/16/25 23:57 WBC RBC Hgb Hct MCV MCH MCHC RDW Plt Count Neut % (Auto) Lymph % (Auto) [place] % (Auto) Eos % (Auto) Baso % (Auto) Neut # (Auto) Lymph # (Auto) [place] # (Auto) Eos # (Auto) Baso # (Auto) PT INR APTT Sodium Potassium Chloride Carbon Dioxide BUN Creatinine Estimated GFR BUN/Creatinine Ratio Glucose POC Whole Bld Glucose 210 H Calcium Magnesium Total Bilirubin AST ALT Alkaline Phosphatase Troponin I NT-Pro-B Natriuret Pep Total Protein Albumin Globulin Albumin/Globulin Ratio Procalcitonin Ur Bilirubin Confirm SARS-CoV-2 (PCR) Influenza A (RT-PCR) Influenza B (RT-PCR) RSV (PCR) Assessment & Plan Assessment & Plan narrative: COPD exacerbation. -Oxygen titration goal of 88-92%, avoid excess oxygen to prevent carbondioxide retention, Monitor mental status. -Albuterol 2.5 mg nebulizer Q Hour for the next 4 to 6 hours -DuoNeb every 4 hours scheduled and every 2 hours as needed -Continue patient on 60 mg Solu-Medrol every 12 hours for severe exacerbation, reassess and taper or prednisone 60 mg daily. Prednisone 40 mg po daily x 5 days starting on day 2 of admission; - Continue azithromycin -Gently hydrate patient -Monitor patient on telemetry. -The patient does not improve we can consider BiPAP and further evaluation by ABG. CAD. Restart carvedilol, Plavix and statins Hyperlipidemia. Restart atorvastatin CHF. Restart carvedilol, losartan and hydrochlorothiazide Hypertension. Restart carvedilol and losartan Anxiety/depression. Restart sertraline and hydroxyzine as needed Diabetes mellitus type 2. ADA diet, hold metformin during the hospital stay, SSI. Time-Based Coding :: [TOTAL MINUTES] spent with patient and on the chart (including review of chart, obtaining history, exam, reviewing outside data, placing orders, documenting exam and treatment plan, and counseling patient) on [DATE]. Quality VTE Deep Vein Thrombosis/Pulmonary Embolism Present on Admission: No MIPS - Admit I confirm the patient?s Advance Care Plan is present, Code status is documented, Surrogate decision maker is in patient?s record [If Yes, STOP here]: Yes MIPS - Meds 'Current medications' to include all prescriptions, [id number] products, herbals, cannabis/cannabidiol products, and vitamin/mineral/dietary (nutritional) supplements. I have utilized all available resources to obtain, update, or review the patient?s current medications. [If Yes, STOP here]: Yes
--- NOTE | 2025-08-17 02:23 | EKG_ITS ---
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
[2025-08-17] MEDS: BENZONATATE 100 MG CAPSULE PO ×4 (02:28→19:49)
[2025-08-17] MEDS: ALBUTEROL 2.5 MG/3 ML NEB (ADULT) INH ×2 (02:29→13:45)
[2025-08-17] MEDS: MORPHINE 4 MG/ML INJ IV ×3 (02:46→14:24)
[2025-08-17] MEDS: SODIUM CHLORIDE 0.9% FLUSH 10 ML IV ×3 (02:46→21:09)
--- NOTE | 2025-08-17 07:48 | PM.HP.1 ---
History of Present Illness History of Present Illness Date Patient Seen: 08/17/25 Chief complaint: chest pain Narrative: From night doctor: 65 years old female with history of COPD, hyperlipidemia, CAD, CHF, anxiety, diabetes mellitus type 2, depression, insomnia presented to the ER with shortness of breath and productive cough with greenish phlegm's for the last 2 weeks. The patient had COVID 2 weeks ago and seems to not recovered completely. She also reports some chest discomfort on coughing and taking deep breath. Denies any fever, palpitations, nausea, vomiting, abdominal pain, diarrhea or dysuria. Remote history of smoking. Denies any PND orthopnea or swelling of the legs. Laboratory shows WBC 9.3, H&H 12.8/39.2, sodium 141, potassium 3.9, creatinine 0.67, blood sugar 135, magnesium 1.9, LFT normal, troponin 0.0 12, BNP 149, respiratory panel negative, UA negative, EKG shows sinus rhythm without any acute ST elevation or depression. Chest x-ray shows mild pulmonary vascular congestion. In the ER she was received multiple DuoNebs, albuterol, magnesium 2 g IV, Percocet, Solu-Medrol 125 mg IV, azithromycin 500 mg p.o. S: She remained short of breath with a lot of wheezing. She also has chest pain which is in the center of her sternum up to the right shoulder. This increases with positional changes or coughing. She was had a MELD of musculoskeletal pain since her illness with COVID several weeks ago. She also recounts recent experiences at [facility] and [facility] with different messages including that she needs a cardiac stent versus she does not need a cardiac stent. [facility] Medical History Myocardial infarction Hepatic steatosis Drug-seeking behavior Seizures Peptic ulcer disease PTSD (post-traumatic stress disorder) Depression Easy bruisability Osteoarthritis GERD (gastroesophageal reflux disease) HLD (hyperlipidemia) HTN (hypertension) Asthma Hearing loss Prediabetes Other chronic pain Tinea pedis Pain in right hip Anxiety Coronary artery disease COPD (chronic obstructive pulmonary disease) Stroke (1999) Surgical History Hx of colonoscopy Hx of tonsillectomy History of surgery on wrist History of bilateral knee replacement Social History household members: none alcohol intake: never Meds Home Medications and Allergies Home Medications ?Medication ?Instructions ?Recorded ?Confirmed ?Type clotrimazole 1 % topical cream 1 applic topical Q12H PRN Rash 04/29/18 08/16/25 History hydroxyzine HCl 25 mg tablet 25 mg PO TID PRN Anxiety 06/26/20 08/16/25 History losartan 100 mg tablet 100 mg PO QAM 06/26/20 08/16/25 History sertraline 50 mg tablet 50 mg PO QAM 06/26/20 08/16/25 History clopidogrel 75 mg tablet 75 mg PO DAILY 06/29/20 08/16/25 History lidocaine 5 % topical patch 1 patch topical DAILY PRN Pain 02/10/22 08/16/25 History atorvastatin 40 mg tablet 80 mg PO BEDTIME 10/16/23 08/16/25 History acetaminophen 500 mg tablet 1,000 mg PO Q12H 11/26/24 08/16/25 History albuterol sulfate 90 mcg/actuation 2 puff inhalation Q4H PRN Wheezing 11/26/24 08/16/25 History aerosol inhaler carvedilol 3.125 mg tablet 3.125 mg PO BID 11/26/24 08/16/25 History hydrochlorothiazide 25 mg tablet 25 mg PO DAILY 11/26/24 08/16/25 History metaxalone 800 mg tablet 800 mg PO TID PRN Muscle spasms 11/26/24 08/16/25 History metformin 500 mg tablet,extended 500 mg PO DAILY 11/26/24 08/16/25 History release 24 hr oxycodone 5 mg tablet 5 mg PO Q8H PRN Pain (Scale Score 11/26/24 08/16/25 History 4-6) trazodone 50 mg tablet 50 mg PO ONCE PM 08/16/25 08/16/25 History Allergies Allergy/AdvReac Type Severity Reaction Status Date / Time aspirin (ASPIRIN) Allergy Severe Throat Verified 08/16/25 22:58 closes, eye itching, difficulty breathing buprenorphine (From Suboxone) Allergy Severe Throat Verified 08/16/25 22:58 closing, vomiting ibuprofen (IBUPROFEN) Allergy Severe Throat Verified 08/16/25 22:58 closes, eye itching, difficulty breathing ketorolac (From TORADOL) Allergy Severe Throat Verified 08/16/25 22:58 closes, eye itching, difficulty breathing methadone Allergy Severe Hard time Verified 08/16/25 22:58 breathing, my vital signs were dropping naloxone (From Suboxone) Allergy Severe Throat Verified 08/16/25 22:58 closing, vomiting NSAIDS (Non-Steroidal Allergy Severe Throat Verified 08/16/25 22:58 Anti-Inflamma closes, eye itching, difficulty breathing tramadol (TRAMADOL) Allergy Severe Rash, my Verified 08/16/25 22:58 throat was closing Beef Containing Products Allergy Hives Verified 08/16/25 22:58 duloxetine Allergy Rash Verified 08/16/25 22:58 gabapentin AdvReac Gastrointestinal Verified 08/16/25 22:58 Upset Review of Systems Review of Systems Narrative: All else reviewed and otherwise unremarkable except as noted in the history and physical. Exam Vital Signs (past 8 hours): - 08/17/25 00:00 08/17/25 00:00 08/17/25 02:30 Temperature 96.2 F L Pulse Rate 94 H 92 H Respiratory Rate 24 20 Blood Pressure 157/79 H Pulse Oximetry 98 98 Oxygen Delivery Method Nasal Cannula Oxygen Flow Rate 0 1 08/17/25 03:18 08/17/25 03:36 Temperature 96.4 F L Pulse Rate 90 Respiratory Rate 24 Blood Pressure 142/73 H Pulse Oximetry 96 98 Oxygen Delivery Method Room Air Oxygen Flow Rate 0 Oxygen Delivery Method Room Air Oxygen Flow Rate 0 Narrative Exam Narrative: NAD, alert and oriented, fluent speech, Mildly anxious. Normocephalic skull, EOMI, anicteric sclera, symmetric pupils. Oropharynx unremarkable, no droop. Neck supple, midline trachea, no adenopathy. Lungs are notable for diffuse wheezing, normal rate and effort. Heart regular, no murmur gallop or rub. Chest wall tender to palpation. Abdomen is soft, non distended and non tender. Extremities are free of edema. Skin is free of rash or lesions. Joints are not swollen or deformed. Judgment appears to be normal. Objective ECG Impression: Intervals [place] Rate: 91 P: 65 [place]: 146 QRS: 24 QRSD: 80 T: 41 QT: 376 QTc: 462 Interpretive Statements Normal sinus rhythm Imaging Chest x-ray: Radiologist's impression: Mild pulmonary vascular congestion. No definite focal infiltrate, pleural effusion or pneumothorax. Labs 08/16/25 20:24 08/17/25 07:50 Labs: Laboratory Results - last 24 hr 08/16/25 08/16/25 08/16/25 20:24 20:30 20:53 WBC 9.3 RBC 4.49 Hgb 12.8 Hct 39.2 MCV 87.4 MCH 28.5 MCHC 32.6 RDW 15.5 H Plt Count 326 Neut % (Auto) 74.0 Lymph % (Auto) 16.8 L [place] % (Auto) 7.7 Eos % (Auto) 0.5 L Baso % (Auto) 1.0 Neut # (Auto) 6900 Lymph # (Auto) 1600 [place] # (Auto) 700 Eos # (Auto) 0 Baso # (Auto) 100 PT 9.8 INR 0.9 APTT 27 Sodium 141 Potassium 3.9 Chloride 107 Carbon Dioxide 27 BUN 25 H Creatinine 0.67 Estimated GFR > 60 BUN/Creatinine Ratio 37.3 H Glucose 135 H POC Whole Bld Glucose Calcium 9.2 Magnesium 1.9 Total Bilirubin 0.3 AST 31 ALT 24 Alkaline Phosphatase 94 Troponin I < 0.012 NT-Pro-B Natriuret Pep 149 H Total Protein 7.2 Albumin 4.2 Globulin 3.0 Albumin/Globulin Ratio 1.4 Procalcitonin 0.038 Ur Bilirubin Confirm Negative SARS-CoV-2 (PCR) Negative Influenza A (RT-PCR) Flu a negative Influenza B (RT-PCR) Flu b negative RSV (PCR) Negative 08/16/25 08/17/25 23:57 07:46 WBC RBC Hgb Hct MCV MCH MCHC RDW Plt Count Neut % (Auto) Lymph % (Auto) [place] % (Auto) Eos % (Auto) Baso % (Auto) Neut # (Auto) Lymph # (Auto) [place] # (Auto) Eos # (Auto) Baso # (Auto) PT INR APTT Sodium Potassium Chloride Carbon Dioxide BUN Creatinine Estimated GFR BUN/Creatinine Ratio Glucose POC Whole Bld Glucose 210 H 185 H Calcium Magnesium Total Bilirubin AST ALT Alkaline Phosphatase Troponin I NT-Pro-B Natriuret Pep Total Protein Albumin Globulin Albumin/Globulin Ratio Procalcitonin Ur Bilirubin Confirm SARS-CoV-2 (PCR) Influenza A (RT-PCR) Influenza B (RT-PCR) RSV (PCR) Assessment & Plan Assessment & Plan narrative: 1. COPD exacerbation, active. 2. Musculoskeletal chest pain secondary to cough and COVID, active. 3. CAD with recent evaluation indicating possible need for PCI, stable. Troponins negative. 4. Uncontrolled HTN Chronic medical problems: CAD HLD CHF HTN Anxiety DM2 PLAN: -Continue steroids and bronchodilators. -out of bed. -oxycodone for pain -obtain old records from [facility], specifically coronary angiogram reports and Cardiology recommendations. -monitor blood pressure, may need to up titrate her medications for better control. She describes recent uncontrolled blood pressure at home. Anticipate 2 midnights in the hospital, supports inpatient status. Full resuscitation Time-Based Coding :: 35 min spent with patient and on the chart (including review of chart, obtaining history, exam, reviewing outside data, placing orders, documenting exam and treatment plan, and counseling patient) on 08/17. Quality VTE Deep Vein Thrombosis/Pulmonary Embolism Present on Admission: No MIPS - Admit I confirm the patient?s Advance Care Plan is present, Code status is documented, Surrogate decision maker is in patient?s record [If Yes, STOP here]: Yes MIPS - Meds 'Current medications' to include all prescriptions, [id number] products, herbals, cannabis/cannabidiol products, and vitamin/mineral/dietary (nutritional) supplements. I have utilized all available resources to obtain, update, or review the patient?s current medications. [If Yes, STOP here]: Yes
[2025-08-17] MEDS: CLOPIDOGREL 75 MG TABLET PO (08:17)
[2025-08-17] MEDS: SERTRALINE 50 MG TABLET PO (08:18)
[2025-08-17] MEDS: INSULIN LISPRO 100 UNIT/ML 3ML VIAL SUBCUT ×4 (08:18→21:11)
[2025-08-17] MEDS: ONDANSETRON 4 MG/2 ML INJ IV (08:18)
[2025-08-17] MEDS: LOSARTAN 50 MG TABLET 100 MG PO (08:19)
[2025-08-17 08:36] LABS: Alanine Aminotransferase 27 IU/L (<35); Albumin 4.3 g/dL (3.5-5.0); Albumin Globulin Ratio 1.4 (1.0-2.8); Alkaline Phosphatase 89 U/L (38-126); Blood Urea Nitrogen 17 mg/dL (7-17); Calcium 9.0 mg/dL (8.4-10.2); Carbon Dioxide 23 mmol/L (22-32); Chloride 105 mmol/L (98-107); Estimated Glomerular Filt Rate > 60 mL/min (>60); Globulin 3.1 g/dL (1.7-4.1); Glucose 176 mg/dL (70-99); HEMOLYSIS 34 (0-50); Potassium 4.3 mmol/L (3.4-5.1); Sodium 139 mmol/L (137-145); Total Protein 7.4 g/dL (6.3-8.2)
[2025-08-17] MEDS: ALBUTEROL/IPRATROPIUM 3 ML AMPUL INH ×3 (08:38→18:11)
--- NOTE | 2025-08-17 08:39 | PC.NURSE ---
Addendum entered by Manisha Grant RN 08/17/25 08:53: 0853 MD Plata at the bedside, assessing patient and updating patient on plan of care. Original Note: [id number] Report received from nightshift RN. Patient AAO x's 3. Able to HELLER. Ambulating from restroom back to bed. Bed alarm set. Call light within reach an bed in lowest position. 0815 Patient complaining of chest pain to mid-chest rated 9/10. Morphine to be administered. 0839 Patient remains complaining of chest pain post morphine administration. MD Plata made aware. to order GI cocktail.
[2025-08-17] MEDS: MAG HYDROX/ALUMINUM/SIMETH SUS 30 ML, LIDOCAINE VISCOUS 2% 15 ML PO (08:47)
[2025-08-17] MEDS: methylPREDNISolone succ 125 MG/2 ML VIAL 60 MG IV ×2 (08:50→21:09)
[2025-08-17] MEDS: ACETAMINOPHEN 325 MG TABLET 975 MG PO (10:17)
--- NOTE | 2025-08-17 11:43 | CM.DANOTE ---
DCP Assessment Note: Pt is a 65yo female, resident of [place], is admitted for COPD exacerbation. Pt lives in a single level house alone. Pt's Primary Care Provider is Dr. Jairo Hart MD with [facility] and insurance is Medicare and Medicaid. (Insurance Card and ID scanned into chart) Reviewed chart and discussed with multidisciplinary team pt's medical status and initial discharge needs. DCP met w/patient at bedside; introduced self and role. Patient was found in bed, alert and oriented, cooperative with assessment. Pt confirmed living situation and good support in family and caregivers. Pt expressed preference in discharge home when cleared. Pt currently has caregivers through the [employer] program, 5 days/week. Her main Caregiver is, Naga, but they are in [place] for family leave - she states she still gets fill in caregivers through [facility] (ph# [phone]). Pt states he has a history of [facility] for SNF Rehab (February) and was referred to Zahra [facility]ERRA but they did not establish care. Pt states she does not think she needs home health because of her caregivers. Pt states her niece, Naima Tomlinson (ph#[phone]) agreed to transport her home at discharge. Plan: Anticipating dc in 1-2 days or when medically cleared, family to transport home. Will need to rule out home health if needed for initial recovery. CM team will follow closely for coordination of discharge plans. Gilda Leblanc CLINICAL ACCOUNT LIAISON Discharge Planning/Care Management Advanced directive, confirm from FAMILY Start: 08/16/25 23:13 Freq: Q24H Status: Active Protocol: Document 08/16/25 23:13 AKT (Rec: 08/16/25 23:14 AKT Other) Advance Directive, confirm on record Time 23:13 Person contacted pt Copy received No Advanced directive No available on record CM Discharge Assessment Start: 08/16/25 23:02 Freq: Status: Active Protocol: Document 08/17/25 11:37 MW (Rec: 08/17/25 11:43 MW [id number]) Discharge Planning Assessment Assigned Discharge CHARLY Vo Engine Pilot Provider Jairo Hart MD ([facility]) Insurance Medicaid DPOA/Assigned Tania Newsome Dtr Designee Name Contact Information [phone] Advance Directives? Yes/POLST Advance Directives No on File History Provided By Patient,Medical Record Has Patient been No admitted in last 30 days? Prior Living House Arrangements Comment 2 bedroom - 1 level home Household Members none Type of Relies on Others transporation used prior to admit Independent with ADL No 's Is patient alert and Yes oriented? Needs Assistance Meal Prep,Managing Medications,Home Chores / Shopping With Caregiver for No Another DME Already Rented / FWW / Walker,Cane Owned Name of Agency [facility] Contact Phone [phone] Discharge Plan Home Transportation Family/Niece - Naima Tomlinson Arrangement Referrals Initiated None needed Review Status In Process Please Provide Date 08/17/25 Initial DC Assessment Was Performed Next Review Type Continued Stay Review
[2025-08-17] MEDS: LIDOCAINE 5% PATCH 1 EACH TOP (14:25)
[2025-08-17] MEDS: AZITHROMYCIN 250 MG TABLET PO (21:10)
[2025-08-17] MEDS: ATORVASTATIN 20 MG TABLET 80 MG PO (21:10)
[2025-08-17] MEDS: MELATONIN 3 MG TABLET 9 MG PO (21:10)
[2025-08-18] VITALS (9 sets, daily range): BP systolic 103–156; BP diastolic 60–77; PULSE 63–91; RESP 16–22; TEMP 35.8–36.7; O2SAT 93–100
[2025-08-18] MEDS: ACETAMINOPHEN 325 MG TABLET 975 MG PO ×3 (00:14→23:03)
[2025-08-18 05:12] LABS: Alanine Aminotransferase 22 IU/L (<35); Albumin 3.9 g/dL (3.5-5.0); Albumin Globulin Ratio 1.4 (1.0-2.8); Alkaline Phosphatase 76 U/L (38-126); Blood Urea Nitrogen 27 mg/dL (7-17); Calcium 8.9 mg/dL (8.4-10.2); Carbon Dioxide 28 mmol/L (22-32); Chloride 103 mmol/L (98-107); Estimated Glomerular Filt Rate > 60 mL/min (>60); Globulin 2.8 g/dL (1.7-4.1); Glucose 215 mg/dL (70-99); HEMOLYSIS < 15 (0-50); Potassium 4.4 mmol/L (3.4-5.1); Sodium 138 mmol/L (137-145); Total Protein 6.7 g/dL (6.3-8.2)
--- NOTE | 2025-08-18 07:37 | P.PN_ITS ---
Subjective Subjective Interval history: Summary: 65 years old female with history of COPD, hyperlipidemia, CAD, CHF, anxiety, diabetes mellitus type 2, depression, insomnia presented to the ER with shortness of breath and productive cough with greenish phlegm's for the last 2 weeks. The patient had COVID 2 weeks ago and seems to not recovered completely. She also reports some chest discomfort on coughing and taking deep breath. Denies any fever, palpitations, nausea, vomiting, abdominal pain, diarrhea or dysuria. Remote history of smoking. Denies any PND orthopnea or swelling of the legs. Laboratory shows WBC 9.3, H&H 12.8/39.2, sodium 141, potassium 3.9, creatinine 0.67, blood sugar 135, magnesium 1.9, LFT normal, troponin 0.0 12, BNP 149, respiratory panel negative, UA negative, EKG shows sinus rhythm without any acute ST elevation or depression. Chest x-ray shows mild pulmonary vascular congestion. In the ER she was received multiple DuoNebs, albuterol, magnesium 2 g IV, Percocet, Solu-Medrol 125 mg IV, azithromycin 500 mg p.o. Recent studies from [facility]: Chest CTA 07/05: No PE, no acute process. Bilateral renal lesions. Stress test 06/16: Normal perfusion study. Normal ECG with stress. ECHO 06/15: LVEF 55-60%, NSR, No WMA. Normal R filling pressures. S: She is still dyspneic, and has a severe cough productive of green phlegm. No nausea. CP is increased with cough. Exam Vital Signs (past 8 hours): - 08/18/25 00:08 08/18/25 04:00 Temperature 97 F L 97.3 F L Pulse Rate 83 74 Respiratory Rate 20 20 Blood Pressure 141/71 H 103/69 Pulse Oximetry 93 98 Oxygen Flow Rate 0 Oxygen Delivery Method Room Air Oxygen Flow Rate 0 Narrative Exam Narrative: NAD, alert and oriented. Fluent speech. Lungs are tight and wheezy, normal rate and effort. Heart is regular, no murmur gallop or rub. Abdomen is soft, non distended. Extremities are free of edema. Objective ECG Impression: NSR Imaging Chest x-ray: Radiologist's impression: Mild pulmonary vascular congestion. No definite focal infiltrate, pleural effusion or pneumothorax. Labs 08/16/25 20:24 08/18/25 04:25 Labs: Laboratory Results - last 24 hr 08/17/25 08/17/25 08/17/25 07:46 07:50 11:36 Sodium 139 Potassium 4.3 Chloride 105 Carbon Dioxide 23 BUN 17 Creatinine 0.45 L Estimated GFR > 60 BUN/Creatinine Ratio 37.8 H Glucose 176 H POC Whole Bld Glucose 185 H 140 H Calcium 9.0 Total Bilirubin 0.3 AST 35 ALT 27 Alkaline Phosphatase 89 Total Protein 7.4 Albumin 4.3 Globulin 3.1 Albumin/Globulin Ratio 1.4 08/17/25 08/17/25 08/18/25 16:55 20:51 04:25 Sodium 138 Potassium 4.4 Chloride 103 Carbon Dioxide 28 BUN 27 H Creatinine 0.74 Estimated GFR > 60 BUN/Creatinine Ratio 36.5 H Glucose 215 H POC Whole Bld Glucose 143 H 194 H Calcium 8.9 Total Bilirubin 0.2 AST 26 ALT 22 Alkaline Phosphatase 76 Total Protein 6.7 Albumin 3.9 Globulin 2.8 Albumin/Globulin Ratio 1.4 PFSH Medical History Myocardial infarction Hepatic steatosis Drug-seeking behavior Seizures Peptic ulcer disease PTSD (post-traumatic stress disorder) Depression Easy bruisability Osteoarthritis GERD (gastroesophageal reflux disease) HLD (hyperlipidemia) HTN (hypertension) Asthma Hearing loss Prediabetes Other chronic pain Tinea pedis Pain in right hip Anxiety Coronary artery disease COPD (chronic obstructive pulmonary disease) Stroke (1999) Surgical History Hx of colonoscopy Hx of tonsillectomy History of surgery on wrist History of bilateral knee replacement Social History household members: none alcohol intake: never Assessment & Plan Assessment & Plan narrative: 1. COPD exacerbation, active. 2. Musculoskeletal chest pain secondary to cough and COVID, active. 3. CAD with recent evaluation indicating possible need for PCI, stable. Troponins negative. 4. Uncontrolled HTN Chronic medical problems: CAD HLD CHF HTN Anxiety DM2 PLAN: -Continue steroids and bronchodilators. -Add Ceftriaxone with possible secondary pneumonia. -out of bed. -oxycodone for pain -obtained old records from [facility], Normal ECHO, Chest CTA, and stress test with perfusion study. -monitor blood pressure, may need to up titrate her medications for better control. She describes recent uncontrolled blood pressure at home. Time-Based Coding :: [TOTAL MINUTES] spent with patient and on the chart (including review of chart, obtaining history, exam, reviewing outside data, placing orders, documenting exam and treatment plan, and counseling patient) on [DATE]. Quality VTE Deep Vein Thrombosis/Pulmonary Embolism Present on Admission: No
[2025-08-18] MEDS: ALBUTEROL/IPRATROPIUM 3 ML AMPUL INH ×3 (08:41→19:18)
[2025-08-18] MEDS: INSULIN LISPRO 100 UNIT/ML 3ML VIAL SUBCUT ×3 (09:12→16:43)
[2025-08-18] MEDS: CLOPIDOGREL 75 MG TABLET PO (09:12)
[2025-08-18] MEDS: LOSARTAN 50 MG TABLET 100 MG PO (09:12)
[2025-08-18] MEDS: SERTRALINE 50 MG TABLET PO (09:12)
[2025-08-18] MEDS: methylPREDNISolone succ 125 MG/2 ML VIAL 60 MG IV ×2 (09:14→21:09)
[2025-08-18] MEDS: SODIUM CHLORIDE 0.9% FLUSH 10 ML IV ×2 (09:16→21:10)
[2025-08-18] MEDS: guaiFENesin Solution 100 MG/5 ML UDC 200 MG PO ×3 (11:08→23:36)
--- NOTE | 2025-08-18 11:36 | CM.DPNOTE ---
DCP Continued: Reviewed EMR and team rounds for pt?s medical status. Per hospitalist, pt switched to INPT status due to COPD exacerbation. No needs identified, pt has initially declined home health due to [facility] caregivers 5x/week and a lot of supportive family in the area. Plan: Anticipating dc home with niece (Holley) to transport on 08/19 or when medically cleared. CM Team will continue to follow for coordination of discharge plans. MANOJ DurhamSW
[2025-08-18] MEDS: BENZONATATE 100 MG CAPSULE PO ×2 (12:04→19:52)
[2025-08-18] MEDS: MORPHINE 4 MG/ML INJ IV (12:04)
[2025-08-18] MEDS: ENOXAPARIN 40 MG/0.4 ML SYRINGE SUBCUT (15:59)
[2025-08-18 16:06] LABS: Hemoglobin A1C% w Est Avg Glu 6.0 % (4.0-6.0)
--- NOTE | 2025-08-18 18:25 | PC.NURSE ---
PT REMAINED A/OX3. UNSURE ON DATE/YEAR. SPO2 > 95%. SOB WITH EXERTION. INTERMITTENT WHEEZE/ PERSISTENT COUGH. PT STATES RELIEF WITH TESSALON. PAIN CONTINUED IN CHEST/ R HIP. SEE EMAR FOR MEDICATIONS GIVEN. PT WALKED IN HALLS/ SAT IN CHAIR FOR MOST OF SHIFT. UP TO BATHROOM WITH STANDYBY ASSIST/ WALKER. SHOWER GIVEN. IV ATBX/STEROIDS CONTINUED. NO CONCERNS FROM PATIENT AT THIS TIME. CARE ONGOING.
[2025-08-18] MEDS: AZITHROMYCIN 250 MG TABLET PO (21:09)
[2025-08-18] MEDS: ATORVASTATIN 20 MG TABLET 80 MG PO (21:10)
[2025-08-19] VITALS (12 sets, daily range): BP systolic 135–181; BP diastolic 58–108; PULSE 68–104; RESP 16–26; TEMP 35.8–36.3; O2SAT 95–100
[2025-08-19] MEDS: guaiFENesin Solution 100 MG/5 ML UDC 200 MG PO ×2 (03:52→14:39)
[2025-08-19] MEDS: ALBUTEROL 2.5 MG/3 ML NEB (ADULT) INH (04:03)
[2025-08-19 05:42] LABS: Alanine Aminotransferase 24 IU/L (<35); Albumin 4.1 g/dL (3.5-5.0); Albumin Globulin Ratio 1.5 (1.0-2.8); Alkaline Phosphatase 83 U/L (38-126); Blood Urea Nitrogen 30 mg/dL (7-17); Calcium 8.9 mg/dL (8.4-10.2); Carbon Dioxide 26 mmol/L (22-32); Chloride 104 mmol/L (98-107); Estimated Glomerular Filt Rate > 60 mL/min (>60); Globulin 2.8 g/dL (1.7-4.1); Glucose 168 mg/dL (70-99); HEMOLYSIS < 15 (0-50); Potassium 4.2 mmol/L (3.4-5.1); Sodium 138 mmol/L (137-145); Total Protein 6.9 g/dL (6.3-8.2)
[2025-08-19 06:15] LABS: NT-proBNP (BNP-Adult 18+) 163 pg/mL (<125)
[2025-08-19 06:36] LABS: Labcorp Creatine Kinase MB 2.9 ng/mL (0.0-5.3)
[2025-08-19] MEDS: INSULIN LISPRO 100 UNIT/ML 3ML VIAL SUBCUT ×3 (07:51→20:36)
[2025-08-19] MEDS: ALBUTEROL/IPRATROPIUM 3 ML AMPUL INH ×3 (07:53→17:22)
[2025-08-19] MEDS: MORPHINE 4 MG/ML INJ IV ×3 (09:02→18:36)
[2025-08-19] MEDS: methylPREDNISolone succ 125 MG/2 ML VIAL 60 MG IV ×3 (09:02→23:14)
[2025-08-19] MEDS: ENOXAPARIN 40 MG/0.4 ML SYRINGE SUBCUT (09:03)
[2025-08-19] MEDS: CLOPIDOGREL 75 MG TABLET PO (09:03)
[2025-08-19] MEDS: SERTRALINE 50 MG TABLET PO (09:03)
[2025-08-19] MEDS: LOSARTAN 50 MG TABLET 100 MG PO (09:03)
[2025-08-19] MEDS: SODIUM CHLORIDE 0.9% FLUSH 10 ML IV ×2 (09:03→23:14)
[2025-08-19] MEDS: ACETAMINOPHEN 325 MG TABLET 975 MG PO ×2 (10:44→23:18)
--- NOTE | 2025-08-19 15:15 | P.PN_ITS ---
Subjective Subjective Interval history: 65 yo female w/COPD, HLD, CAD, CHF, DM2 admitted w/COPD exacerbation and mild pulmonary vascular congestion. Patient reports she continues to be quite short of breath. She states she continues to cough and will have green sputum. She will also cough and blow green nasal discharge. She states that when she got up earlier today she got significantly short of breath and lightheaded. She states she fell back into bed. She states the 2nd time she was up she had a similar thing occur and fell back onto the commode. She reports her cough remains very harsh and is not improved at all compared to yesterday. Exam Vital Signs (past 8 hours): - 08/18/25 13:25 08/18/25 16:05 08/18/25 19:19 Temperature 98.1 F Pulse Rate 87 71 91 H Respiratory Rate 16 20 18 Blood Pressure 151/60 H Pulse Oximetry 99 98 98 Oxygen Delivery Method Room Air Room Air Oxygen Flow Rate 0 08/18/25 20:00 Temperature 96.9 F L Pulse Rate 80 Respiratory Rate 22 Blood Pressure 147/67 H Pulse Oximetry 96 Oxygen Delivery Method Oxygen Flow Rate 0 Oxygen Delivery Method Room Air Oxygen Flow Rate 0 Narrative Exam Narrative: GEN: Pleasant chatty middle-aged female, Alert and oriented x 3, frequent harsh cough with audible wheezes HEENT:NC, Face symmetric CHEST: Respiratory excursions symmetric, diffuse coarse expiratory wheezes bilaterally, frequent harsh cough CV: RRR, no M/R/G ABD: Soft, obese, NT/ND, BT present in all 4 quadrants, body habitus limits exam EXTR: warm, well perfused, no C/C/E SKIN: warm and dry, no rash NEURO: Alert and oriented x 3, nonfocal Objective Labs 08/16/25 20:24 08/19/25 04:58 Labs: Laboratory Results - last 24 hr 08/17/25 08/18/25 08/18/25 20:51 04:25 08:15 Sodium 138 Potassium 4.4 Chloride 103 Carbon Dioxide 28 BUN 27 H Creatinine 0.74 Estimated GFR > 60 BUN/Creatinine Ratio 36.5 H Glucose 215 H POC Whole Bld Glucose 194 H 162 H Hemoglobin A1c Calcium 8.9 Total Bilirubin 0.2 AST 26 ALT 22 Alkaline Phosphatase 76 Total Protein 6.7 Albumin 3.9 Globulin 2.8 Albumin/Globulin Ratio 1.4 08/18/25 08/18/25 08/18/25 09:45 11:51 16:36 Sodium Potassium Chloride Carbon Dioxide BUN Creatinine Estimated GFR BUN/Creatinine Ratio Glucose POC Whole Bld Glucose 130 H 193 H Hemoglobin A1c 6.0 Calcium Total Bilirubin AST ALT Alkaline Phosphatase Total Protein Albumin Globulin Albumin/Globulin Ratio 08/18/25 20:03 Sodium Potassium Chloride Carbon Dioxide BUN Creatinine Estimated GFR BUN/Creatinine Ratio Glucose POC Whole Bld Glucose 112 H Hemoglobin A1c Calcium Total Bilirubin AST ALT Alkaline Phosphatase Total Protein Albumin Globulin Albumin/Globulin Ratio [facility] Medical History Myocardial infarction Hepatic steatosis Drug-seeking behavior Seizures Peptic ulcer disease PTSD (post-traumatic stress disorder) Depression Easy bruisability Osteoarthritis GERD (gastroesophageal reflux disease) HLD (hyperlipidemia) HTN (hypertension) Asthma Hearing loss Prediabetes Other chronic pain Tinea pedis Pain in right hip Anxiety Coronary artery disease COPD (chronic obstructive pulmonary disease) Stroke (1999) Surgical History Hx of colonoscopy Hx of tonsillectomy History of surgery on wrist History of bilateral knee replacement Social History household members: none alcohol intake: never Assessment & Plan Assessment & Plan narrative: 1. COPD exacerbation She has had persistent cough productive of green sputum since developing COVID 2 wks ago. WBC normal. Will increase Solu-Medrol from 60 mg IV q.12 to 60 mg IV q.8 hours. Will add guaifenesin dextromethorphan scheduled. 2. Pulmonary vascular congestion BNP minimally elevated. Suspect this is all COPD exacerbation related. 3. Uncontrolled HTN Blood pressures are mild to moderately elevated. Continues on carvedilol, hydrochlorothiazide, losartan. 4. CAD Recent evaluation determined she may need PCI in near future. Last echo showed EF 55-60%. Stress test 06/16 was negative. 5. DM2 BGs have ranged from 160s-190s. 6. Class 2 obesity BMI 37.3. Would benefit from weight reduction for glycemic control as well as cardiorespiratory status. However, should have cardiac clearance before initiation of any exercise regimen. Code status Full Prophy On Lovenox Dispo Due to her ongoing significant symptoms inclusive of harsh cough, shortness of breath, and dizziness when she is up, she is not ready for discharge. Will continue to monitor and reassess in 24 hours Time-Based Coding :: [TOTAL MINUTES] spent with patient and on the chart (including review of chart, obtaining history, exam, reviewing outside data, placing orders, documenting exam and treatment plan, and counseling patient) on [DATE]. Quality VTE Deep Vein Thrombosis/Pulmonary Embolism Present on Admission: No
[2025-08-19] MEDS: guaiFENesin/DM 200 mg/20 mg/10 mL SYRUP PO ×3 (15:57→23:14)
[2025-08-19] MEDS: ATORVASTATIN 20 MG TABLET 80 MG PO (20:40)
[2025-08-19] MEDS: AZITHROMYCIN 250 MG TABLET PO (20:40)
[2025-08-20] VITALS (10 sets, daily range): BP systolic 148–172; BP diastolic 68–90; PULSE 77–96; RESP 15–25; TEMP 35.6–35.9; O2SAT 94–99
[2025-08-20] MEDS: guaiFENesin/DM 200 mg/20 mg/10 mL SYRUP PO ×3 (05:40→17:40)
--- NOTE | 2025-08-20 05:46 | PC.NURSE ---
Pt continues w/frequent cough. Lungs w/ ins/exp wheezes T/O O2 sat 95% RA SL intact/patent. Call light w/in reach. Bed alarm on for pt safety, pt does call appropriately for needs. Continue w/ plan of care.
[2025-08-20] MEDS: ALBUTEROL/IPRATROPIUM 3 ML AMPUL INH ×3 (07:48→19:22)
[2025-08-20 07:55] LABS: Add Manual Diff / Slide Review NO; Hematocrit 41.0 % (36-46); Hemoglobin 13.5 g/dL (12.0-16.0); Lymphocytes Absolute Auto 1400 /uL (1100-4500); Mean Corpuscular HGB Conc 32.8 % (30-36); Mean Corpuscular Hemoglobin 28.6 PG (26-34); Mean Corpuscular Volume 87.2 fL (80-100); Platelet Count 345 X10^3/uL (150-400)
[2025-08-20] MEDS: MORPHINE 4 MG/ML INJ IV ×4 (08:06→23:37)
[2025-08-20 08:15] LABS: Blood Urea Nitrogen 25 mg/dL (7-17); Calcium 9.2 mg/dL (8.4-10.2); Carbon Dioxide 25 mmol/L (22-32); Chloride 102 mmol/L (98-107); Estimated Glomerular Filt Rate > 60 mL/min (>60); Glucose 154 mg/dL (70-99); HEMOLYSIS < 15 (0-50); Potassium 4.2 mmol/L (3.4-5.1); Sodium 138 mmol/L (137-145)
[2025-08-20] MEDS: CLOPIDOGREL 75 MG TABLET PO (08:42)
[2025-08-20] MEDS: LOSARTAN 50 MG TABLET 100 MG PO (08:42)
[2025-08-20] MEDS: SERTRALINE 50 MG TABLET PO (08:42)
[2025-08-20] MEDS: methylPREDNISolone succ 125 MG/2 ML VIAL 60 MG IV ×3 (08:44→23:37)
[2025-08-20] MEDS: ENOXAPARIN 40 MG/0.4 ML SYRINGE SUBCUT (08:45)
[2025-08-20] MEDS: INSULIN LISPRO 100 UNIT/ML 3ML VIAL SUBCUT ×2 (08:49→16:34)
[2025-08-20] MEDS: BENZONATATE 100 MG CAPSULE PO ×2 (08:56→16:34)
[2025-08-20] MEDS: SODIUM CHLORIDE 0.9% FLUSH 10 ML IV ×2 (09:04→20:30)
[2025-08-20] MEDS: ACETAMINOPHEN 325 MG TABLET 975 MG PO ×2 (13:00→23:39)
[2025-08-20] MEDS: guaiFENesin Solution 100 MG/5 ML UDC 200 MG PO ×2 (13:15→17:37)
--- NOTE | 2025-08-20 18:28 | PM.PN.1 ---
Subjective Subjective Interval history: 65 yo female w/COPD, HLD, CAD, CHF, DM2 admitted w/COPD exacerbation and mild pulmonary vascular congestion. Patient reports she remains significantly short of breath. She states she is mildly improved compared to yesterday. She states she continues to cough green sputum. She tells me that she fell twice overnight, once when getting up out of bed she fell back into bed. She states she fell a 2nd time back onto the toilet and nursing had to help her back up afterwards. She states her cough remains very harsh and is marginally improved with the addition of dextromethorphan cough syrup. She does continue to complain of dizziness when she is up Exam Vital Signs (past 8 hours): - 08/20/25 12:00 08/20/25 13:20 08/20/25 16:00 Temperature 96.6 F L 96.5 F L Pulse Rate 87 87 85 Respiratory Rate 20 22 22 Blood Pressure 151/68 H 154/90 H Pulse Oximetry 98 98 95 Oxygen Delivery Method Room Air Oxygen Flow Rate 0 0 0 Fraction of Inspired Oxygen 21 Fraction of Inspired Oxygen 21 SaO2/FiO2 Ratio 466 Oxygen Delivery Method Room Air Oxygen Flow Rate 0 Narrative Exam Narrative: GEN: Pleasant chatty middle-aged female, Alert and oriented x 3, frequent harsh cough with audible wheezes HEENT:NC, Face symmetric CHEST: Respiratory excursions symmetric, diffuse coarse expiratory wheezes bilaterally, frequent harsh cough CV: RRR, no M/R/G ABD: Soft, obese, NT/ND, BT present in all 4 quadrants, body habitus limits exam EXTR: warm, well perfused, no C/C/E SKIN: warm and dry, no rash NEURO: Alert and oriented x 3, nonfocal Objective Labs 08/20/25 07:45 08/20/25 07:45 Labs: Laboratory Results - last 24 hr 08/19/25 08/20/25 08/20/25 19:30 07:45 11:53 WBC 8.3 RBC 4.71 Hgb 13.5 Hct 41.0 MCV 87.2 MCH 28.6 MCHC 32.8 RDW 15.7 H Plt Count 345 Neut % (Auto) 78.9 H Lymph % (Auto) 16.4 L [place] % (Auto) 4.0 Eos % (Auto) 0.0 L Baso % (Auto) 0.7 Neut # (Auto) 6600 Lymph # (Auto) 1400 [place] # (Auto) 300 Eos # (Auto) 0 Baso # (Auto) 100 Sodium 138 Potassium 4.2 Chloride 102 Carbon Dioxide 25 BUN 25 H Creatinine 0.72 Estimated GFR > 60 BUN/Creatinine Ratio 34.7 H Glucose 154 H POC Whole Bld Glucose 203 H 130 H Calcium 9.2 08/20/25 16:24 WBC RBC Hgb Hct MCV MCH MCHC RDW Plt Count Neut % (Auto) Lymph % (Auto) [place] % (Auto) Eos % (Auto) Baso % (Auto) Neut # (Auto) Lymph # (Auto) [place] # (Auto) Eos # (Auto) Baso # (Auto) Sodium Potassium Chloride Carbon Dioxide BUN Creatinine Estimated GFR BUN/Creatinine Ratio Glucose POC Whole Bld Glucose 140 H Calcium PFSH Medical History Myocardial infarction Hepatic steatosis Drug-seeking behavior Seizures Peptic ulcer disease PTSD (post-traumatic stress disorder) Depression Easy bruisability Osteoarthritis GERD (gastroesophageal reflux disease) HLD (hyperlipidemia) HTN (hypertension) Asthma Hearing loss Prediabetes Other chronic pain Tinea pedis Pain in right hip Anxiety Coronary artery disease COPD (chronic obstructive pulmonary disease) Stroke (1999) Surgical History Hx of colonoscopy Hx of tonsillectomy History of surgery on wrist History of bilateral knee replacement Social History household members: none alcohol intake: never Assessment & Plan Assessment & Plan narrative: 1. COPD exacerbation She has had persistent cough productive of green sputum since developing COVID 2 wks ago. WBC normal. Will continue Solu-Medrol at 60 mg IV q.8 hours. Continue guaifenesin dextromethorphan scheduled. She reports good success in the past with guaifenesin with codeine. This will be added to her regimen. 2. Pulmonary vascular congestion BNP minimally elevated. Suspect this is all COPD exacerbation related. 3. Uncontrolled HTN Blood pressures are mild to moderately elevated. Continues on carvedilol, hydrochlorothiazide, losartan. 4. CAD Recent evaluation determined she may need PCI in near future. Last echo showed EF 55-60%. Stress test 06/16 was negative. 5. DM2 BGs have ranged from 130s-203 6. Class 2 obesity BMI 37.3. Would benefit from weight reduction for glycemic control as well as cardiorespiratory status. However, should have cardiac clearance before initiation of any exercise regimen. Code status Full Prophy On Lovenox Dispo Due to her ongoing significant symptoms inclusive of harsh cough, shortness of breath, and dizziness when she is up, she is not ready for discharge. Will continue to monitor and reassess in 24 hours Time-Based Coding :: [TOTAL MINUTES] spent with patient and on the chart (including review of chart, obtaining history, exam, reviewing outside data, placing orders, documenting exam and treatment plan, and counseling patient) on [DATE]. Quality VTE Deep Vein Thrombosis/Pulmonary Embolism Present on Admission: No
[2025-08-20] MEDS: ATORVASTATIN 20 MG TABLET 80 MG PO (20:17)
[2025-08-20] MEDS: AZITHROMYCIN 250 MG TABLET PO (20:18)
[2025-08-20] MEDS: CODEINE/guaiFENesin LIQUID 5 ML UDC 10 ML PO (20:20)
[2025-08-20] MEDS: INSULIN GLARGINE 100 UNIT/ML 3ML PEN 10 UNIT SUBCUT (20:30)
[2025-08-20] MEDS: REMOVE LIDOCAINE PATCH 1 EACH TOP (20:36)
[2025-08-21] VITALS (10 sets, daily range): BP systolic 141–198; BP diastolic 60–77; PULSE 65–104; RESP 14–23; TEMP 35.5–36.1; O2SAT 94–99
[2025-08-21] MEDS: CODEINE/guaiFENesin LIQUID 5 ML UDC 10 ML PO ×4 (03:31→23:25)
[2025-08-21] MEDS: MORPHINE 4 MG/ML INJ IV ×3 (03:32→21:36)
--- NOTE | 2025-08-21 07:40 | P.PN_ITS ---
Subjective Subjective Interval history: Summary: 65 yo female w/COPD, HLD, CAD, CHF, DM2 admitted w/COPD exacerbation and mild pulmonary vascular congestion. Patient reports she remains significantly short of breath. She states she is mildly improved compared to yesterday. She states she continues to cough green sputum. She tells me that she fell twice overnight, once when getting up out of bed she fell back into bed. She states she fell a 2nd time back onto the toilet and nursing had to help her back up afterwards. She states her cough remains very harsh and is marginally improved with the addition of dextromethorphan cough syrup. She does continue to complain of dizziness when she is up 08/17-08/20: Nina, on antibiotics, and given bronchodilators with little improvement subjectively of her symptoms. S: She was slowly improving, day 4 of ceftriaxone. Still with a cough which is productive of phlegm and wheezing. Complete her full course of antibiotics here given her slow progress and relatively persistent symptoms. O: NAD, alert and oriented. Fluent speech. Lungs are clear, normal rate and effort. Heart is regular, no murmur gallop or rub. Abdomen is soft, non distended. Extremities are free of edema. PT: OT: A/P: 1. COPD exacerbation, slowly improving. She has had persistent cough productive of green sputum since developing COVID 2 wks ago. WBC normal. Will continue Solu-Medrol at 60 mg IV q.8 hours. Continue guaifenesin dextromethorphan scheduled. She reports good success in the past with guaifenesin with codeine. This will be added to her regimen. 2. Pulmonary vascular congestion, improved. BNP minimally elevated. Suspect this is all COPD exacerbation related. 3. Uncontrolled HTN, improved. Blood pressures are mild to moderately elevated. Continues on carvedilol, hydrochlorothiazide, losartan. 4. CAD Recent evaluation determined she may need PCI in near future. Last echo showed EF 55-60%. Stress test 06/16 was negative. 5. DM2 BGs have ranged from 130s-203 6. Class 2 obesity BMI 37.3. Would benefit from weight reduction for glycemic control as well as cardiorespiratory status. However, should have cardiac clearance before initiation of any exercise regimen. PLAN: -complete 5 days of IV antibiotics through tomorrow morning and then anticipate discharge home. -continue steroids. -we will increase her dose of Coreg to 6.25 BID. Anticipate discharge on August 22. Code status Full Prophy On Lovenox Exam Vital Signs (past 8 hours): - 08/20/25 23:43 08/21/25 03:15 Temperature 96.1 F L 96.3 F L Pulse Rate 81 75 Respiratory Rate 15 14 Blood Pressure 154/69 H 164/76 H Pulse Oximetry 94 97 Oxygen Flow Rate 0 0 Fraction of Inspired Oxygen 21 SaO2/FiO2 Ratio 461 Oxygen Delivery Method Room Air Oxygen Flow Rate 0 Objective Labs 08/20/25 07:45 08/20/25 07:45 Labs: Laboratory Results - last 24 hr 08/20/25 08/20/25 08/20/25 07:45 11:53 16:24 WBC 8.3 RBC 4.71 Hgb 13.5 Hct 41.0 MCV 87.2 MCH 28.6 MCHC 32.8 RDW 15.7 H Plt Count 345 Neut % (Auto) 78.9 H Lymph % (Auto) 16.4 L Alexander % (Auto) 4.0 Eos % (Auto) 0.0 L Baso % (Auto) 0.7 Neut # (Auto) 6600 Lymph # (Auto) 1400 [place] # (Auto) 300 Eos # (Auto) 0 Baso # (Auto) 100 Sodium 138 Potassium 4.2 Chloride 102 Carbon Dioxide 25 BUN 25 H Creatinine 0.72 Estimated GFR > 60 BUN/Creatinine Ratio 34.7 H Glucose 154 H POC Whole Bld Glucose 130 H 140 H Calcium 9.2 08/20/25 20:24 WBC RBC Hgb Hct MCV MCH MCHC RDW Plt Count Neut % (Auto) Lymph % (Auto) Alexander % (Auto) Eos % (Auto) Baso % (Auto) Neut # (Auto) Lymph # (Auto) Alexander # (Auto) Eos # (Auto) Baso # (Auto) Sodium Potassium Chloride Carbon Dioxide BUN Creatinine Estimated GFR BUN/Creatinine Ratio Glucose POC Whole Bld Glucose 167 H Calcium PFSH Medical History Myocardial infarction Hepatic steatosis Drug-seeking behavior Seizures Peptic ulcer disease PTSD (post-traumatic stress disorder) Depression Easy bruisability Osteoarthritis GERD (gastroesophageal reflux disease) HLD (hyperlipidemia) HTN (hypertension) Asthma Hearing loss Prediabetes Other chronic pain Tinea pedis Pain in right hip Anxiety Coronary artery disease COPD (chronic obstructive pulmonary disease) Stroke (1999) Surgical History Hx of colonoscopy Hx of tonsillectomy History of surgery on wrist History of bilateral knee replacement Social History household members: none alcohol intake: never Assessment & Plan Time-Based Coding :: [TOTAL MINUTES] spent with patient and on the chart (including review of chart, obtaining history, exam, reviewing outside data, placing orders, documenting exam and treatment plan, and counseling patient) on [DATE]. Quality VTE Deep Vein Thrombosis/Pulmonary Embolism Present on Admission: No
[2025-08-21] MEDS: LOSARTAN 50 MG TABLET 100 MG PO (08:26)
[2025-08-21] MEDS: CLOPIDOGREL 75 MG TABLET PO (08:26)
[2025-08-21] MEDS: ENOXAPARIN 40 MG/0.4 ML SYRINGE SUBCUT (08:27)
[2025-08-21] MEDS: methylPREDNISolone succ 125 MG/2 ML VIAL 60 MG IV ×3 (08:27→23:26)
[2025-08-21] MEDS: SERTRALINE 50 MG TABLET PO (08:28)
[2025-08-21] MEDS: ALBUTEROL/IPRATROPIUM 3 ML AMPUL INH ×2 (09:06→18:13)
[2025-08-21] MEDS: BENZONATATE 100 MG CAPSULE PO ×3 (09:55→23:25)
[2025-08-21] MEDS: SODIUM CHLORIDE 0.9% FLUSH 10 ML IV ×2 (09:55→21:28)
--- NOTE | 2025-08-21 10:32 | OT.IP.EVAL ---
Current Diagnoses Chronic obstructive pulmonary disease with (acute) exacerbation (08/18/25) Past Medical History (Last Reviewed 08/17/25 @ 09:36 by Rolly Plata MD) Anxiety Asthma COPD (chronic obstructive pulmonary disease) Coronary artery disease Depression Drug-seeking behavior Easy bruisability GERD (gastroesophageal reflux disease) Hearing loss Hepatic steatosis HLD (hyperlipidemia) HTN (hypertension) Myocardial infarction Osteoarthritis Other chronic pain Pain in right hip Peptic ulcer disease Prediabetes PTSD (post-traumatic stress disorder) Seizures Stroke (1999) Tinea pedis Surgical History (Last Reviewed 08/17/25 @ 09:36 by Rolly Plata MD) History of bilateral knee replacement History of surgery on wrist Hx of colonoscopy Hx of tonsillectomy Occupational Therapy Inpatient Evaluation/Re-Eval M1 PT/OT-IP Prior Functional Status Start: 08/21/25 10:09 Freq: NEEDED Status: Active Protocol: Document 08/21/25 10:10 KENDAL (Rec: 08/21/25 10:31 MKKSRICHMOND [id number]) Medical Review Prior Functional Status Medical History Yes Reviewed Communication Pt able to make needs known Mobility and Gait Pt has a scooter, 4WW, and SC at home. Pt reports she used all of them for mobility depending on how she was feeling. Activities of Daily Pt has [facility] c[facility] 5x/wk and reports that she occasionally Living and IADL's gets extra assistance from the program on the weekend. Her neighbors also check in with her. Per pt, the cgs make her meals, perform housework, and assist with BADLs MIN-MOD A. Prior Functional Pt does not drive. [facility] cg often drive her to her Level (Other details appointments ) Social History Household Members none Living Arrangements House Number of Floors ( One Floor Floors) Number of Stairs To No steps to enter Enter/Railing? Home Environment Standard Height Toilet,Walk in Shower Home Equipment Four Wheel Walker,Straight Cane,Power Wheelchair/ Scooter,Raised Toilet Seat w/Armrests,Tub Transfer Bench,Hand Held Shower,Grab Bars Near Toilet,Grab Bars In Shower M2 OT-IP Current Condition Start: 08/21/25 10:09 Freq: Status: Active Protocol: Document 08/21/25 10:10 KENDAL (Rec: 08/21/25 10:31 KMKSRICHMOND [id number]) Occupational Therapy Current Condition Current Condition Evaluation Date 08/21/25 Treatment Diagnosis acute exacerbation of COPD, decreased self care Diagnosis Onset Date 08/18/25 M3 OT- IP Subjective and Pain Start: 08/21/25 10:09 Freq: Status: Active Protocol: Document 08/21/25 10:10 KENDAL (Rec: 08/21/25 10:31 KENDAL [id number]) OT- Subjective Occupational Therapy Visit Type Type Initial Evaluation Visit Start Time 09:20 Visit Stop Time 09:55 Notes Pt sitting up in bed on entrance of OT. Pt agreeable to participating in OT eval. Occupational Therapy Visit Comments Patient/Caregiver To go home Goals OT Pain Assessment Pain Present Pain Present Pain Reported Location chest Scale Used not rated, reports with coughing only M4 OT- IP ADL's Start: 08/21/25 10:09 Freq: Status: Active Protocol: Document 08/21/25 10:10 KENDAL (Rec: 08/21/25 10:31 KENDAL [id number]) OT [id number] Comments OT Self-Feeding not observed Comments OT ADL-Grooming General Evaluation Grooming Ability Independent Comments OT Grooming Comments pt performs at sink side where she is able to gather supplies from around the counter and complete effectively. OT ADL-Oral Care General Eval Oral Care Ability Independent Comments Oral Care Comments pt performs at sink side with supplies around counter. pt is able to complete all aspects of oral hygiene to completeness. OT ADL-Dressing General Eval Upper Body Dressing Standby Assistance Ability Lower Body Dressing Standby Assistance Ability Comments OT Dressing Comments Pt dons slippers and adjusts ties on hospital gown without assistance. OT ADL-Toileting General Evaluation Toileting Ability Independent Comments OT Toileting Pt manages clothing and hygiene without assistance. Comments OT ADL-Bathing Comments OT Bathing Comments not observed M5 OT- IP IADL's Start: 08/21/25 10:09 Freq: Status: Active Protocol: Document 08/21/25 10:10 KENDAL (Rec: 08/21/25 10:31 KENDAL [id number]) OT-Instrumental Activities of Daily Living Deficits IADL Deficits No Deficits Identified Home Safety Awareness Awareness of Need Good Awareness for Assistance at Home Ability to Problem Able to Problem Solve Solve Emergency Situations Medication Management Medication No Deficits Identified Management Money Management Money Management No Deficits Identified Meal Preparation Meal Preparation Caregiver Provides Assist Birthing Nurse Birthing Nurse Caregiver Provides Assist Driving Driving Caregiver Provides Assist M6 OT- IP Functional Cognition Start: 08/21/25 10:09 Freq: Status: Active Protocol: Document 08/21/25 10:10 KENDAL (Rec: 08/21/25 10:31 KMKSR[facility]MOND [id number]) Cognitive Factors Limiting Selfcare Function Cognitive Ability Level of Alertness Alert Patient Orientation Name,Age,Birthday,Month,Date,Year,Day of Week,Place, Situation Attention Span Capable of Focused Attention,Capable of Sustained Ability Attention Ability to Follow Able to Follow One Step Commands,Able to Follow Multi- Commands Step Commands Memory Description No Deficits Noted Safety Awareness No Deficits Noted Problem Solving No deficits Noted Ability Executive Function No Deficits Noted Ability Abstract Thinking No Deficits Noted Ability OT- Vision and Hearing OT- Hearing Assessment OT- Hearing WFL Assessment OT- Vision Assessment Visual Acuity WFL,Glasses All The Time M7 OT- IP Mobility and Balance Start: 08/21/25 10:09 Freq: Status: Active Protocol: Document 08/21/25 10:10 KENDAL (Rec: 08/21/25 10:31 [facility] [id number][facility] OT- Bed Mobility Assessment Supine to Sit Supine to Sit Assist Standby Assistance OT-Transfer Assessment Sit to and From Stand Sit to and from Standby Assistance,1 Person Assistance Stand Transfers Transfer Ability Standby Assistance,1 Person Assistance Technique Transfer Destination Chair,Toilet Transfer Technique Stand Step Pivot Devices Transfer Assistive Gait Belt,Front Wheeled Walker Devices OT- Gait Assessment Gait Gait Assistance Standby Assistance Required: Distance (Feet) 20 Assistive Devices Assistive Device Gait Belt,Front Wheeled Walker Comments Gait Ability Pt ambulates throughout her room to perform BADLs. Pt Comments does so with FWW, good safety awareness, and good balance. OT- Balance Assessment Sitting Balance and Reactions Static Sitting Normal Balance Ability Dynamic Sitting Good Balance Ability Standing Balance and Reactions Static Standing Normal Balance Ability Dynamic Standing Good Balance Ability M8 OT- IP Objective Assessments Start: 08/21/25 10:09 Freq: Status: Active Protocol: Document 08/21/25 10:10 KENDAL (Rec: 08/21/25 10:31 [facility] [id number]) OT Gross Range of Motion Upper Extremity Range of Motion Assessment Right Impaired ROM Impairments R shoulder actively ~ 45, passively ~120. Pt reports this is due to a chronic rotator cuff tear. Pt's R 3rd- 5th digits remain flexed to~90 at PIP and DIP. Pt reports this is due to an injury that occurred in the 80s. OT Strength Upper Extremity Strength Assessment Right Impaired Shoulder L4-; R 2+ Elbow L4; R 4- Hand L4, R 3+ Hand Rouge Mixer Strength Hand Dominance Right Comments Strength Comments Pt reports weakness in R UE is due to long history of rotator cuff injury and CVAs. Pt reports that she has tried therapy on them and it hasn't helped. Pt declines any interest in working on strengthening at this time. OT-Muscle Tone Assessment Muscle Tone WNL Yes M9 OT- IP Assessment and Plan Start: 08/21/25 10:09 Freq: Status: Active Protocol: Document 08/21/25 10:10 KENDAL (Rec: 08/21/25 10:31 KENDAL [id number]) OT Summary Assessment and Plan Potential Analytic Complexity Low at Evaluation Summary OT Impairments Pain,Strength Progress Towards Safe For Discharge Goals Assessment Summary Pt is a 65 yo F who had COVID ~2 weeks ago, she was admitted due to acute exacerbation of COPD. During eval , pt's BP was 155/74 and O2 on RA 98%. Pt has [facility] cgs 5x/wk. Per pt she has assistance for all meals, housework, driving, and MIN-MOD A with BADLs. During eval, pt demonstrates BADLs ranging from S to MOD I, pt also reports that she is performing this tasks at her baseline when asked. Pt demonstrates decreased functional use of R UE especially with respect to strength. OT suggested working on this and pt declines, stating she has had therapy for it before and it hasn' t helped. At this time, pt is functioning at baseline or is not interested in working on skills that fall within the OT scope of practice. No skilled OT services are indicated at this time. Pt may benefit from HH PT on d/c, see PT eval for details. Frequency of Treatment Frequency Of Discharge Treatment Discharge Recommendations OT Discharge Home with Assistance Recommendations Transportation Needs Private Vehicle,Wheelchair/Cabulance at Discharge
[2025-08-21] MEDS: ACETAMINOPHEN 325 MG TABLET 975 MG PO ×2 (11:28→23:25)
[2025-08-21] MEDS: INSULIN LISPRO 100 UNIT/ML 3ML VIAL SUBCUT ×2 (12:09→21:27)
--- NOTE | 2025-08-21 12:53 | CM.DPNOTE ---
DCP note ERGONOMIST reviewed EMR per chart, one more day of IV abx and potential dc tomorrow. ERGONOMIST met with pt in room. pt reports pending what Boni says tomorrow agreeable to go home. reports either [facility] vs niece can likely transport home. does not like using medicaid transport because they swartz her but she has the benefit. no new needs. P: anticipate dc tomorrow home with [facility] support. CM team will continue to follow closely in case any DCP needs should arise CHARLY James
--- NOTE | 2025-08-21 14:35 | PT.IIE ---
Current Diagnoses Chronic obstructive pulmonary disease with (acute) exacerbation (08/18/25) Surgical History (Last Reviewed 08/17/25 @ 09:36 by Rolly Plata MD) History of bilateral knee replacement History of surgery on wrist Hx of colonoscopy Hx of tonsillectomy Medical History (Last Reviewed 08/17/25 @ 09:36 by Rolly Plata MD) Anxiety Asthma COPD (chronic obstructive pulmonary disease) Coronary artery disease Depression Drug-seeking behavior Easy bruisability GERD (gastroesophageal reflux disease) Hearing loss Hepatic steatosis HLD (hyperlipidemia) HTN (hypertension) Myocardial infarction Osteoarthritis Other chronic pain Pain in right hip Peptic ulcer disease Prediabetes PTSD (post-traumatic stress disorder) Seizures Stroke (1999) Tinea pedis Physical Therapy Inpatient Evaluation/Re-Eval M1 PT/OT-IP Prior Functional Status Start: 08/21/25 10:09 Freq: NEEDED Status: Active Protocol: Document 08/21/25 10:10 KENDAL (Rec: 08/21/25 10:31 KENDAL [id number]) Medical Review Prior Functional Status Medical History Yes Reviewed Communication Pt able to make needs known Mobility and Gait Pt has a scooter, 4WW, and SC at home. Pt reports she used all of them for mobility depending on how she was feeling. Activities of Daily Pt has [facility] cg 5x/wk and reports that she occasionally Living and IADL's gets extra assistance from the program on the weekend. Her neighbors also check in with her. Per pt, the cgs make her meals, perform housework, and assist with BADLs MIN-MOD A. Prior Functional Pt does not drive. DAQU[facility] cg often drive her to her Level (Other details appointments ) Social History Household Members none Living Arrangements House Number of Floors ( One Floor Floors) Number of Stairs To No steps to enter Enter/Railing? Home Environment Standard Height Toilet,Walk in Shower Home Equipment Four Wheel Walker,Straight Cane,Power Wheelchair/ Scooter,Raised Toilet Seat w/Armrests,Tub Transfer Bench,Hand Held Shower,Grab Bars Near Toilet,Grab Bars In Shower M1 PT/OT-IP Prior Functional Status Start: 08/21/25 14:03 Freq: NEEDED Status: Active Protocol: Document 08/21/25 14:03 [facility] (Rec: 08/21/25 14:34 [facility] [id number]) Medical Review Prior Functional Status Medical History Yes Reviewed Communication Pt able to make needs known Mobility and Gait Pt has a scooter, 4WW, and SC at home. Pt reports she used all of them for mobility depending on how she was feeling. Activities of Daily Pt has [facility]QU[facility] cg 5x/wk and reports that she occasionally Living and IADL's gets extra assistance from the program on the weekend. Her neighbors also check in with her. Per pt, the cgs make her meals, perform housework, and assist with BADLs MIN-MOD A. Prior Functional Pt does not drive. DAQUAN cg often drive her to her Level (Other details appointments ) Social History Household Members none Living Arrangements House Number of Floors ( One Floor Floors) Number of Stairs To No steps to enter Enter/Railing? Home Environment Standard Height Toilet,Walk in Shower Home Equipment Four Wheel Walker,Straight Cane,Power Wheelchair/ Scooter,Raised Toilet Seat w/Armrests,Tub Transfer Bench,Hand Held Shower,Grab Bars Near Toilet,Grab Bars In Shower M2 PT-IP Current Condition Start: 08/21/25 14:03 Freq: NEEDED Status: Active Protocol: Document 08/21/25 14:03 [facility] (Rec: 08/21/25 14:34 [facility] [id number]) Physical Therapy Current Condition Current Condition Evaluation Date 08/21/25 Treatment Diagnosis COPD M3 PT-IP Subjective Start: 08/21/25 14:03 Freq: NEEDED Status: Active Protocol: Document 08/21/25 14:03 [facility] (Rec: 08/21/25 14:34 [facility] [id number]) Subjective Physical Therapy Visit Type Type Initial Evaluation Visit Start Time 14:03 Visit Stop Time 14:28 Number of READING INSTRUCTOR Visits 0 Physical Therapy Visit Comments Patient Comments Pt reports she used to walk and likes to walk M4 PT-IP Mobility and Gait Start: 08/21/25 14:03 Freq: NEEDED Status: Active Protocol: Document 08/21/25 14:03 [facility] (Rec: 08/21/25 14:34 [facility] [id number]) PT-Bed Mobility Assessment Supine to Sit Supine to Sit Independent Sit to Supine Sit to Supine Independent Scooting Scooting to Edge of Independent Bed Scooting Up and Down Independent in Bed PT-Transfer Assessment Sit to and From Stand Sit to and from Independent Stand Equipment Transfer Assistive Gait Belt,Front Wheeled Walker Device Comments Mobility Comments supine to sit and sit to stand indep to FWW then amb SBA w/FWW to bathroom and toileted indep. Pt then amb 450ft w/FWW SBA with pulse ox 100% when returned to room. Pt took occasional standing breaks when amb but did well. Pt left with bed alarm on and call light in reach Gait Assessment Gait Gait Assistance Standby Assistance Required: Distance (Feet) 450 Assistive Devices Assistive Device Front Wheeled Walker Orthotic/Prosthetic No Devices or Brace: Gait Deviations General Gait Pattern Flexed Trunk Factors Limiting Gait Function Factors Limiting Decreased Strength,Respiratory Distress Gait Function PT-Balance Assessment Sitting Balance and Reactions Static Sitting Normal Balance Ability Dynamic Sitting Normal Balance Ability Standing Balance and Reactions Static Standing Good Balance Ability Dynamic Standing Good Balance Ability Device Used FWW M5 PT-IP Objective Assessments Start: 08/21/25 14:03 Freq: NEEDED Status: Active Protocol: Document 08/21/25 14:03 [facility] (Rec: 08/21/25 14:34 [facility] [id number]) Orientation Orientation/Cognition Level of Alertness Alert Gross Range of Motion Lower Extremity ROM Assessment Within Functional Limits M6 PT-IP Treatment Start: 08/21/25 14:03 Freq: NEEDED Status: Active Protocol: Document 08/21/25 14:03 [facility] (Rec: 08/21/25 14:34 [facility] [id number]) Physical Therapy Treatment Education Education Provided Safety M7 PT-IP Assessment and Plan Start: 08/21/25 14:03 Freq: NEEDED Status: Active Protocol: Document 08/21/25 14:03 [facility] (Rec: 08/21/25 14:34 [facility] [id number]) PT Summary Assessment and Plan Potential Rehabilitation Excellent Potential Status of Condition Evolving at Evaluation Summary Impairments Pain,Balance Assessment Summary Pt presents w/hospitalization d/t COPD with overall good mobility. At this time, she is at baseline and is able to maintain O2 saturation w/activity w/o cues. DC d/t pt at baseline mobility. Frequency of Treatment Frequency Of Discharge Treatment Treatment Plan Physical Therapy Gait Training,Therapeutic Exercise Treatment Plan Weight Bearing Status Weight Bearing Full Weight Bearing Status Recommendations To Nursing Amount of Assist Standby Assistance Needed Discharge Recommendations PT Discharge Home with Assistance Recommendations Transportation Needs Private Vehicle at Discharge
--- NOTE | 2025-08-21 18:34 | DI.ECHO.S_ITS ---
[facility]+ [facility] : : [id number] : [place] : : [id number] : : Phone: [phone] Echocardiogram Report + + :Name: LANG BLAIR Study Date: 08/22/2025 Height: 61 in : :Hospital ReadingLocation: Weight: 197 lb : : Gender: Female BSA: 1.9 m2 : :: 1960 Age: 65 yrs BP: 127/48 mmHg: :Reason For Study: DYSPNEA : :Ordering Physician: LANDRY, : :JULIANN Larios Performed By: Roro Ramos : :Referring: JULIANN ALATORRE : + + Interpretation Summary The left ventricle is normal in size and wall thickness. The left ventricular ejection fraction is normal. The ejection fraction is estimated to be 60-65%. No significant change in LVEF. The right ventricle is normal in size and function. No significant valvular pathology seen. The inferior vena cava was not well visualized. Procedure: A two-dimensional transthoracic echocardiogram with color flow and Doppler was performed. The study quality was technically adequate. Comparison is made with the echocardiogram of 06/15/2025. The patient was in sinus rhythm with heart rates between 67-72 bpm during the exam. Left Ventricle: The left ventricle is normal in size and wall thickness. There is no thrombus. The ejection fraction is estimated to be 60-65%. The left ventricular ejection fraction is normal. There are no focal wall motion abnormalities. Normal diastolic function. Right Ventricle: The right ventricle is normal in size and function. Atria: The left atrial size is normal. Right atrial size is normal. The interatrial septum grossly appears intact with no obvious evidence for an atrial septal defect. Mitral Valve: The mitral valve leaflets appear borderline thickened. There is no mitral valve stenosis. There has been no significant change since the previous study. Aortic Valve: The aortic valve is trileaflet. The aortic valve opens well. There is mild aortic valve sclerosis. There is no aortic valve stenosis. No aortic regurgitation is present. Tricuspid Valve: The tricuspid valve leaflets are thin and pliable. Pulmonary artery pressures cannot be estimated because of the lack of a measurable TR jet velocity. There is trace tricuspid regurgitation. Pulmonic Valve: The pulmonic valve is not well visualized. There is no pulmonic valvular regurgitation. Great Vessels: The aortic root is normal size. The dimensions of the ascending aorta are normal. The inferior vena cava was not well visualized. Pericardium/ Pleura There is no pericardial effusion. There is no pleural effusion. MMode/2D Measurements & Calculations LVIDd: 3.9 cm LVOT diam: 2.1 cm LVIDs: 2.5 cm asc Aorta Diam: 3.0 cm FS: 36.0 % Ao Arch Diam (Prox Trans): 2.4 cm IVSd: 0.76 cm LVPWd: 0.86 cm LV echevarria. diameter/BSA (cm/m^2): 2.1 LV sys. diameter/BSA (cm/m^2): 1.3 LA A2 area: 20.2 cm2 RA long axis: 4.4 cm LA A4 area: 17.6 cm2 RA area: 14.0 cm2 LA length (vol): 5.3 cm RA vol: 37.5 ml LA vol: 57.1 ml RA : 20.0 ml/m2 LA vol index: 30.4 ml/m2 RVD1 (basal): 3.1 cm RVD2 (mid): 2.7 cm TAPSE: 1.9 cm Doppler Measurements & Calculations Ao V2 max: 123.7 cm/sec LVOT Max Esequiel: 95.6 cm/sec Ao V2 mean: 79.2 cm/sec LV V1 max P.7 mmHg Ao max P.1 mmHg LV V1 VTI: 21.4 cm Ao mean P.8 mmHg MIGUEL ANGEL(I,D): 2.8 cm2 Ao V2 VTI: 24.9 cm MIGUEL ANGEL(V,D): 2.6 cm2 sev ratio: 0.86 MIGUEL ANGEL indexed to BSA (cm^2/m^2): 1.5 MV E max esequiel: 60.8 cm/sec PA V2 max: 110.4 cm/sec MV A max esequiel: 94.1 cm/sec PA V2 mean: 78.1 cm/sec MV E/A: 0.65 PA mean P.8 mmHg Med Peak E' Esequiel: 9.6 cm/sec PA pr(Accel): 27.6 mmHg E/E' med: 6.4 Lat Peak E' Esequiel: 11.5 cm/sec E/E' lat: 5.3 E/e' average: 5.8 MV dec time: 0.40 sec SV(LVOT): 70.8 ml Reading Physician:08:52 AM
[2025-08-21] MEDS: FUROSEMIDE 40 MG/4 ML VIAL IV (18:51)
[2025-08-21] MEDS: ATORVASTATIN 20 MG TABLET 80 MG PO (21:21)
[2025-08-21] MEDS: INSULIN GLARGINE 100 UNIT/ML 3ML PEN 10 UNIT SUBCUT (21:26)
[2025-08-22] VITALS: BP 127/48; PULSE 71; RESP 18; TEMP 35.8; O2SAT 93
[2025-08-22] MEDS: MORPHINE 4 MG/ML INJ IV (02:41)
[2025-08-22 05:17] LABS: Add Manual Diff / Slide Review NO; Hematocrit 37.6 % (36-46); Hemoglobin 12.4 g/dL (12.0-16.0); Lymphocytes Absolute Auto 700 /uL (1100-4500); Mean Corpuscular HGB Conc 32.9 % (30-36); Mean Corpuscular Hemoglobin 28.4 PG (26-34); Mean Corpuscular Volume 86.2 fL (80-100); Platelet Count 311 X10^3/uL (150-400)
[2025-08-22 05:28] LABS: Blood Urea Nitrogen 36 mg/dL (7-17); Calcium 8.5 mg/dL (8.4-10.2); Carbon Dioxide 28 mmol/L (22-32); Chloride 101 mmol/L (98-107); Estimated Glomerular Filt Rate > 60 mL/min (>60); Glucose 210 mg/dL (70-99); HEMOLYSIS < 15 (0-50); Potassium 4.1 mmol/L (3.4-5.1); Sodium 135 mmol/L (137-145)
[2025-08-22] MEDS: CODEINE/guaiFENesin LIQUID 5 ML UDC 10 ML PO (06:20)
[2025-08-22] MEDS: methylPREDNISolone succ 125 MG/2 ML VIAL 60 MG IV (06:21)
[2025-08-22 07:40] VITALS: PULSE 93; RESP 16; O2SAT 97
[2025-08-22] MEDS: ALBUTEROL/IPRATROPIUM 3 ML AMPUL INH (07:44)
[2025-08-22 08:00] VITALS: BP 157/79; PULSE 94; RESP 24; TEMP 35.7; O2SAT 98
[2025-08-22] MEDS: INSULIN LISPRO 100 UNIT/ML 3ML VIAL SUBCUT (08:22)
[2025-08-22] MEDS: ENOXAPARIN 40 MG/0.4 ML SYRINGE SUBCUT (08:23)
[2025-08-22] MEDS: SODIUM CHLORIDE 0.9% FLUSH 10 ML IV (08:24)
[2025-08-22] MEDS: BENZONATATE 100 MG CAPSULE PO (08:24)
[2025-08-22] MEDS: CLOPIDOGREL 75 MG TABLET PO (08:24)
[2025-08-22] MEDS: SERTRALINE 50 MG TABLET PO (08:24)
[2025-08-22] MEDS: LOSARTAN 50 MG TABLET 100 MG PO (08:25)
[2025-08-22] MEDS: ACETAMINOPHEN 325 MG TABLET 975 MG PO (10:32)
--- NOTE | 2025-08-22 10:42 | PM.DS.1 ---
History of Present Illness History of Present Illness Chief complaint: chest pain Narrative: From night doctor: 65 years old female with history of COPD, hyperlipidemia, CAD, CHF, anxiety, diabetes mellitus type 2, depression, insomnia presented to the ER with shortness of breath and productive cough with greenish phlegm's for the last 2 weeks. The patient had COVID 2 weeks ago and seems to not recovered completely. She also reports some chest discomfort on coughing and taking deep breath. Denies any fever, palpitations, nausea, vomiting, abdominal pain, diarrhea or dysuria. Remote history of smoking. Denies any PND orthopnea or swelling of the legs. Laboratory shows WBC 9.3, H&H 12.8/39.2, sodium 141, potassium 3.9, creatinine 0.67, blood sugar 135, magnesium 1.9, LFT normal, troponin 0.0 12, BNP 149, respiratory panel negative, UA negative, EKG shows sinus rhythm without any acute ST elevation or depression. Chest x-ray shows mild pulmonary vascular congestion. In the ER she was received multiple DuoNebs, albuterol, magnesium 2 g IV, Percocet, Solu-Medrol 125 mg IV, azithromycin 500 mg p.o. Discharge Providers Provider Date of admission: 08/18/25 11:08 Discharge Date: 08/22/25 Primary care physician: Jairo Hart MD Consults: 08/16/25 22:34 Consult to Cardio/Pulmonary Rehabilitation Routine Comment: Physician Instructions: Evaluate and treat 08/16/25 23:13 Consult to Pharmacy Routine Comment: medication review with patient. 08/20/25 18:41 Consult to Pharmacy Routine Comment: high fall risk 08/20/25 19:02 Consult to Occupational Therapy Evaluate & Treat Comment: Physician Instructions: Evaluate and treat Consult to Physical Therapy Evaluate & Treat Comment: Physician Instructions: Evaluate and Treat Discharge provider: Rolly Plata MD Summary Hospital Course Discharge Diagnosis: 1. COPD exacerbation, slowly improving. 2. Pulmonary vascular congestion, improved. 3. Uncontrolled HTN, improved. 4. CAD, stable. Recent evaluation determined she may need PCI in near future. Last echo showed EF 55-60%. Stress test 06/16 was negative. 5. DM2 BGs have ranged from 130s-203 6. Class 2 obesity BMI 37.3. Hospital Course: Summary: 65 yo female w/COPD, HLD, CAD, CHF, DM2 admitted w/COPD exacerbation and mild pulmonary vascular congestion. 08/16: Patient reports she remains significantly short of breath. She states she is mildly improved compared to yesterday. She states she continues to cough green sputum. She tells me that she fell twice overnight, once when getting up out of bed she fell back into bed. She states she fell a 2nd time back onto the toilet and nursing had to help her back up afterwards. She states her cough remains very harsh and is marginally improved with the addition of dextromethorphan cough syrup. She does continue to complain of dizziness when she is up 08/17-08/20: Diurese, on antibiotics, and given bronchodilators with little improvement subjectively of her symptoms. 08/21: Imaging reviewed, normal CT without airspace disease. Echo was repeated which is unremarkable with normal EF and no wall motion abnormalities. She was reassured that she will likely have persistent symptoms for several weeks from COVID but that there was no acute process requires hospital, antibiotics, or steroids. She was felt to be stable for discharge home Exam Vital Signs (past 8 hours): - 08/22/25 07:40 08/22/25 08:00 Temperature 96.2 F L Pulse Rate 93 H 94 H Respiratory Rate 16 24 Blood Pressure 157/79 H Pulse Oximetry 97 98 Oxygen Delivery Method Room Air Fraction of Inspired Oxygen 21 SaO2/FiO2 Ratio 461 Oxygen Delivery Method Room Air Oxygen Flow Rate 0 Narrative Exam Narrative: NAD, alert and oriented. Fluent speech. Lungs are clear, normal rate and effort. Heart is regular, no murmur gallop or rub. Abdomen is soft, non distended. Extremities are free of edema. Objective ECG Impression: Intervals [place] Rate: 91 P: 65 UT: 146 QRS: 24 QRSD: 80 T: 41 QT: 376 QTc: 462 Interpretive Statements Normal sinus rhythm Imaging Multiple studies: : Radiologist's impression: ECHO: The left ventricle is normal in size and wall thickness. The left ventricular ejection fraction is normal. The ejection fraction is estimated to be 60-65%. No significant change in LVEF. The right ventricle is normal in size and function. No significant valvular pathology seen. The inferior vena cava was not well visualized. CXR: Mild pulmonary vascular congestion. No definite focal infiltrate, pleural effusion or pneumothorax. Chest CTA: 1. No pulmonary embolism. 2. No acute airspace opacity. 3. Complicated cyst at the superior pole of the kidneys are unchanged. Labs 08/22/25 04:48 08/22/25 04:48 Labs: Laboratory Results - last 24 hr 08/21/25 08/21/25 08/21/25 11:51 16:37 20:41 WBC RBC Hgb Hct MCV MCH MCHC RDW Plt Count Neut % (Auto) Lymph % (Auto) [place] % (Auto) Eos % (Auto) Baso % (Auto) Neut # (Auto) Lymph # (Auto) [place] # (Auto) Eos # (Auto) Baso # (Auto) Sodium Potassium Chloride Carbon Dioxide BUN Creatinine Estimated GFR BUN/Creatinine Ratio Glucose POC Whole Bld Glucose 216 H 129 H 273 H D Calcium 08/22/25 08/22/25 04:48 08:00 WBC 7.8 RBC 4.36 Hgb 12.4 Hct 37.6 MCV 86.2 MCH 28.4 MCHC 32.9 RDW 15.5 H Plt Count 311 Neut % (Auto) 86.1 H Lymph % (Auto) 9.3 L [place] % (Auto) 4.5 Eos % (Auto) 0.0 L Baso % (Auto) 0.1 Neut # (Auto) 6700 Lymph # (Auto) 700 L [place] # (Auto) 300 Eos # (Auto) 0 Baso # (Auto) 0 Sodium 135 L Potassium 4.1 Chloride 101 Carbon Dioxide 28 BUN 36 H Creatinine 0.79 Estimated GFR > 60 BUN/Creatinine Ratio 45.6 H Glucose 210 H POC Whole Bld Glucose 167 H D Calcium 8.5 PFSH Medical History Myocardial infarction Hepatic steatosis Drug-seeking behavior Seizures Peptic ulcer disease PTSD (post-traumatic stress disorder) Depression Easy bruisability Osteoarthritis GERD (gastroesophageal reflux disease) HLD (hyperlipidemia) HTN (hypertension) Asthma Hearing loss Prediabetes Other chronic pain Tinea pedis Pain in right hip Anxiety Coronary artery disease COPD (chronic obstructive pulmonary disease) Stroke (1999) Surgical History Hx of colonoscopy Hx of tonsillectomy History of surgery on wrist History of bilateral knee replacement Social History household members: none alcohol intake: never Discharge Assessment & Plan Assessment and Plan Assessment: 1. COPD exacerbation. Plan of Treatment: Discharge home with symptomatic treatment with Tessalon, Robitussin AC, and oxycodone as needed pain close follow up with PCP is recommended. Discharge Plan Discharge Plan Patient Disposition: Home Provider Discharge Comment: Stable for discharge home with reassurance that she will have persistent cough and wheezing likely for a week or 2. Discharge orders & Medications Prescriptions: New benzonatate 100 mg Capsule 100 mg PO TID PRN (Reason: Cough) Qty: 60 1RF codeine-guaifenesin 10-100 mg/5 mL Liquid 10 ml PO Q6H PRN (Reason: cough) Qty: 120 1RF Continued clotrimazole 1 % cream 1 applic Topical Q12H PRN (Reason: Rash) Patient Comments: has not taken in month of May. hydroxyzine HCl 25 mg Tablet 25 mg PO TID PRN (Reason: Anxiety) losartan 100 mg Tablet 100 mg PO QAM sertraline 50 mg Tablet 50 mg PO QAM clopidogrel 75 mg Tablet 75 mg PO DAILY Rx Instructions: takes in the evening atorvastatin 40 mg tablet 80 mg PO BEDTIME lidocaine 5 % Adhesive Patch,Medicated 1 patch TOPICAL DAILY PRN (Reason: Pain) Rx Instructions: leave on most painful area for up to 12 hrs acetaminophen 500 mg tablet 1,000 mg PO Q12H carvedilol 3.125 mg tablet 3.125 mg PO BID hydrochlorothiazide 25 mg tablet 25 mg PO DAILY metformin 500 mg tablet extended release 24 hr 500 mg PO DAILY albuterol sulfate 90 mcg/actuation HFA aerosol inhaler 2 puff inhalation Q4H PRN (Reason: Wheezing) metaxalone 800 mg Tablet 800 mg PO TID PRN (Reason: Muscle spasms) trazodone 50 mg tablet 50 mg PO ONCE PM oxycodone 5 mg tablet 5 mg PO Q8H MDD 15 mg PRN (Reason: Pain (Scale Score 4-6)) Qty: 15 0RF Follow up/Referrals: Jairo Hart MD [Primary Care Provider, Medical] Discharge Health Status Multidrug resistant organism: No MDRO Diet/Activity/Treatments Diet: Low-sodium Visit Report/Discharge Packet Instructions: DI for COVID-19 (Suspected or Confirmed ) Stand Alone Forms: Patient Portal/API Discharge Data Primary Care Provider: Jairo Hart VTE Deep Vein Thrombosis/Pulmonary Embolism Present on Admission: No
== END 2025-08-22 13:00 | disposition home or self-care (01) | DRG 192 ==
LOC: ED 22:30 → AC 08-17 08:20
PROVIDERS: Family Medicine; Hospitalist; Admitting Provider Internal Medicine; Emergency Provider Emergency Medicine; PCP Student in an Organized Health Care Education/Training Program; Referring Provider Emergency Medicine; Visit Provider Internal Medicine
DX: J44.1 Chronic obstructive pulmonary disease with (acute) exacerbation (principal); I25.10 Atherosclerotic heart disease of native coronary artery without angina pectoris; E78.5 Hyperlipidemia, unspecified; I50.9 Heart failure, unspecified; I11.0 Hypertensive heart disease with heart failure; F41.9 Anxiety disorder, unspecified; F32.A Depression, unspecified; E11.9 Type 2 diabetes mellitus without complications; R05.9 Cough, unspecified; R07.9 Chest pain, unspecified; E66.812 Obesity, class 2; Z87.891 Personal history of nicotine dependence; Z86.16 Personal history of COVID-19; Z68.37 Body mass index [BMI] 37.0-37.9, adult; Z79.84 Long term (current) use of oral hypoglycemic drugs; Z79.02 Long term (current) use of antithrombotics/antiplatelets; Z86.73 Personal history of transient ischemic attack (TIA), and cerebral infarction without residual deficits
CPT/HCPCS: 36415; 71045; 80048; 80053; 81003; 82553; 82962; 83036; 83735; 83880; 84145; 84484; 85025; 85610; 85730; 87040; 87070; 87205; 87637; 93005; 93306; 94640; 96365; 96375; 97116; 97162; 97165; 99284; G0378; A9270; J0696; J1650; J1815; J1938; J2270; J2405; J2919; J3475; J7613

== ENCOUNTER 2025-09-06 17:33 | Inpatient (IN) | payer MEDICARE, MEDICAID, SELFPAY ==
[2025-08-16 23:02] VITALS: BMI 37.3
[2025-09-06] VITALS (8 sets, daily range): BP systolic 117–142; BP diastolic 76–98; PULSE 86–112; RESP 20–33; TEMP 36.6–37.2; O2SAT 95–99; BMI 36.2
--- NOTE | 2025-09-06 17:39 | ED.SOB ---
HPI - SOB/Dyspnea <Gomez Perez, DO - Last Filed: 09/06/25 18:33> General Chief Complaint: Shortness of Breath/Dyspnea Stated Complaint: COPD Exacerbation Time Seen by Provider: 09/06/25 17:38 History of Present Illness HPI Narrative: 65-year-old female history of hypertension [id number] diabetes depression dyslipidemia CAD COPD non O2 dependent prior stroke and seizure disorder presents with cough, shortness of breath, dyspnea on exertion for which she was diagnosed with COVID about a month ago. Patient was just seen on 08/16 25 here for acute exacerbation COPD brought in today for shortness breath and cough with no significant improve his symptoms despite being on steroids inhalers and nebulizers. She denies active chest pain, fever, chills, back pain, nausea, vomiting, diaphoresis, sore throat, leg pain, swelling, increased weight gain. Other than what is stated 14 point review of system is negative. Related Data Home Medications ?Medication ?Instructions ?Recorded ?Confirmed acetaminophen 500 mg tablet 1,000 mg PO Q12H 11/26/24 09/06/25 albuterol sulfate 90 mcg/actuation 2 puff inhalation Q4H PRN Wheezing 11/26/24 09/06/25 aerosol inhaler cetirizine 10 mg tablet 10 mg PO DAILY 08/30/25 09/06/25 prednisone 10 mg tablet 20 mg PO DAILY 09/06/25 09/06/25 Previous Rx's ?Medication ?Instructions ?Recorded benzonatate 100 mg capsule 100 mg PO TID PRN Cough #60 caps 08/22/25 codeine 10 mg-guaifenesin 100 mg/5 10 ml PO Q6H PRN cough #120 mL 08/22/25 mL oral liquid atorvastatin 40 mg tablet 80 mg (2 x 40 mg) PO BEDTIME #90 08/30/25 tabs carvedilol 3.125 mg tablet 3.125 mg PO BID #180 tabs 08/30/25 clopidogrel 75 mg tablet 75 mg PO DAILY #90 tabs 08/30/25 cyclobenzaprine 10 mg tablet 10 mg PO TID PRN muscle spasm #90 08/30/25 tabs gabapentin 100 mg capsule 200 mg (2 x 100 mg) PO TID #60 caps 08/30/25 hydrochlorothiazide 25 mg tablet 25 mg PO DAILY #90 tabs 08/30/25 hydroxyzine HCl 25 mg tablet 25 mg PO TID PRN Anxiety #60 tabs 08/30/25 ipratropium bromide 21 mcg (0.03 2 spray intranasal BID #30 mL 08/30/25 %) nasal spray lidocaine 5 % topical patch 1 patch topical DAILY PRN Pain #30 08/30/25 ea losartan 100 mg tablet 100 mg PO QAM #90 tabs 08/30/25 metformin 500 mg tablet,extended 500 mg PO DAILY #90 tabs 08/30/25 release 24 hr oxycodone 5 mg tablet 5 mg PO BID PRN pain #30 tabs 08/30/25 sertraline 50 mg tablet 50 mg PO QAM #90 tabs 08/30/25 trazodone 50 mg tablet 50 mg PO ONCE PM #90 tabs 08/30/25 Allergies Allergy/AdvReac Type Severity Reaction Status Date / Time aspirin (ASPIRIN) Allergy Severe Throat Verified 09/06/25 17:42 closes, eye itching, difficulty breathing buprenorphine (From Suboxone) Allergy Severe Throat Verified 09/06/25 17:42 closing, vomiting ibuprofen (IBUPROFEN) Allergy Severe Throat Verified 09/06/25 17:42 closes, eye itching, difficulty breathing ketorolac (From TORADOL) Allergy Severe Throat Verified 09/06/25 17:42 closes, eye itching, difficulty breathing methadone Allergy Severe Hard time Verified 09/06/25 17:42 breathing, my vital signs were dropping naloxone (From Suboxone) Allergy Severe Throat Verified 09/06/25 17:42 closing, vomiting NSAIDS (Non-Steroidal Allergy Severe Throat Verified 09/06/25 17:42 Anti-Inflamma closes, eye itching, difficulty breathing tramadol (TRAMADOL) Allergy Severe Rash, my Verified 09/06/25 17:42 throat was closing Beef Containing Products Allergy Hives Verified 09/06/25 17:42 duloxetine Allergy Rash Verified 09/06/25 17:42 gabapentin AdvReac Gastrointestinal Verified 09/06/25 17:42 Upset Review of Systems <Gomez Perez, - Last Filed: 09/06/25 18:33> Review of Systems ROS Unobtainable: All systems reviewed & are unremarkable except as noted in HPI and below Patient History <Gomez Perez DO - Last Filed: 09/06/25 18:33> Medical History (Updated 09/06/25 @ 20:18 by Manav Oliveira MD) Insomnia CHF (congestive heart failure) Chronic pain History of CVA (cerebrovascular accident) Myocardial infarction Hepatic steatosis Drug-seeking behavior Seizures Peptic ulcer disease PTSD (post-traumatic stress disorder) Depression Easy bruisability Osteoarthritis GERD (gastroesophageal reflux disease) HLD (hyperlipidemia) HTN (hypertension) Asthma Hearing loss Prediabetes Other chronic pain Tinea pedis Pain in right hip Anxiety Coronary artery disease COPD (chronic obstructive pulmonary disease) Stroke (1999) Surgical History (Updated 08/30/25 @ 10:24 by Nahomi Hoffman MD) Hx of colonoscopy Hx of tonsillectomy History of surgery on wrist History of bilateral knee replacement Social History household members: none alcohol intake: never tobacco type: cigarettes alcohol intake frequency: holidays/special occasions only Exam <Gomez Perez DO - Last Filed: 09/06/25 18:33> Narrative Exam Narrative: GENERAL: [65] year old patient appears stated age. Well-developed patient, in mild distress. HEAD: Atraumatic. Normocephalic. EYES: Pupils equal round and reactive. Extraocular motions intact. No scleral icterus. No injection or drainage. ENT: Nose without bleeding, purulent drainage. Throat without erythema, tonsillar hypertrophy or exudate. Airway patent. NECK: Trachea midline. Non tender CARDIOVASCULAR: Regular rate and rhythm without murmurs, gallops, or rubs. RESPIRATORY: Decreased breath sounds with coarse rhonchi and faint wheezes at the base GASTROINTESTINAL: Abdomen soft, non-tender, nondistended. EXTREMITIES: No edema or joint tenderness. BACK: Nontender without deformity or crepitance. No flank tenderness. NEURO: AOx3. SKIN: No rash or erythema of visible areas Initial Vital Signs Initial Vital Signs: Vital Signs Temperature 99.0 F 09/06/25 17:41 Pulse Rate 112 H 09/06/25 17:41 Respiratory Rate 32 H 09/06/25 17:41 Blood Pressure 117/76 09/06/25 17:41 Pulse Oximetry 96 09/06/25 17:41 Oxygen Delivery Method Room Air 09/06/25 17:41 <Manav Oliveira MD - Last Filed: 09/07/25 03:24> Initial Vital Signs Initial Vital Signs: Vital Signs Temperature 99.0 F 09/06/25 17:41 Pulse Rate 112 H 09/06/25 17:41 Respiratory Rate 32 H 09/06/25 17:41 Blood Pressure 117/76 09/06/25 17:41 Pulse Oximetry 96 09/06/25 17:41 Oxygen Delivery Method Room Air 09/06/25 17:41 Course <Gomez Perez, DO - Last Filed: 09/06/25 18:33> Orders Ordered: ED Orders 09/06/25 18:57 Blood Culture Stat 09/06/25 20:55 Lactate (Lactic Acid) Stat Troponin I Stat 09/07/25 06:00 Basic Metabolic Panel DAILY Complete Blood Count AUTO DIFF DAILY Acetaminophen (Acetaminophen 325 Mg Tablet) 650 mg PO Q6H PRN PRN Reason: Fever/Mild Pain (1-3) Last Admin: 09/06/25 20:21 Dose: 650 mg Documented By: ZGG Albuterol/Ipratropium (Albuterol/Ipratropium 3 Ml Ampul) 3 ml INH RTQ4HR PRN PRN Reason: Shortness Of Breath Albuterol/Ipratropium (Albuterol/Ipratropium 3 Ml Ampul) 3 ml INH [id number] [facility] Atorvastatin Calcium (Atorvastatin 20 Mg Tablet) 80 mg PO BEDTIME [facility] Last Admin: 09/06/25 22:40 Dose: 80 mg Documented By: TD Benzonatate (Benzonatate 100 Mg Capsule) 100 mg PO TID PRN PRN Reason: Cough Last Admin: 09/06/25 22:40 Dose: 100 mg Documented By: TD Carvedilol (Carvedilol 3.125 Mg Tablet) 3.125 mg PO BID [facility] Last Admin: 09/06/25 22:42 Dose: 3.125 mg Documented By: TD Clopidogrel Bisulfate (Clopidogrel 75 Mg Tablet) 75 mg PO DAILY [facility] Cyclobenzaprine HCl (Cyclobenzaprine 10 Mg Tablet) 10 mg PO TID PRN PRN Reason: Muscle Spasm Last Admin: 09/06/25 22:41 Dose: 10 mg Documented By: TD Gabapentin (Gabapentin 100 Mg Capsule) 200 mg PO TID [facility] Last Admin: 09/06/25 22:21 Dose: Not Given Documented By: TD Guaifenesin/Codeine Phosphate (Codeine/Guaifenesin Liquid 5 Ml Udc) 10 ml PO Q6H PRN PRN Reason: Cough Last Admin: 09/06/25 22:45 Dose: 10 ml Documented By: TD Ceftriaxone Sodium 1,000 mg/ (Sodium Chloride) 100 mls @ 200 mls/hr IV DAILY [facility] Azithromycin 500 mg/ Dextrose 250 mls @ 250 mls/hr IV DAILY [facility] Dextrose (D10w) 100 mls @ 999 mls/hr IV PRN PRN PRN Reason: Hypoglycemia Insulin Glargine (Insulin Glargine 100 Unit/Ml 3ml Pen) 10 unit SUBCUT BEDTIME [facility] Last Admin: 09/06/25 22:39 Dose: 10 unit Documented By: TD Co-signed By: CLEMENTINE Insulin Human Lispro (Insulin Lispro 100 Unit/Ml 3ml Vial) 0 unit SUBCUT ACHS [facility]; Protocol Last Admin: 09/06/25 22:39 Dose: Not Given Documented By: TD Methylprednisolone (Methylprednisolone Succ 125 Mg/2 Ml Vial) 60 mg IV Q6H [facility] Naloxone HCl (Naloxone 0.4 Mg/Ml Vial) 0.2 mg IV Q2MIN PRN PRN Reason: Opiate Reversal Ondansetron HCl (Ondansetron 4 Mg/2 Ml Inj) 4 mg IV Q8HR PRN PRN Reason: Nausea And Vomiting Oxycodone HCl (Oxycodone Ir 5 Mg Tablet) 5 mg PO BID PRN PRN Reason: pain Last Admin: 09/06/25 22:41 Dose: 5 mg Documented By: TD Sertraline HCl (Sertraline 50 Mg Tablet) 50 mg PO DAILY [facility] Trazodone HCl (Trazodone 50 Mg Tablet) 50 mg PO BEDTIME [facility] Last Admin: 09/06/25 22:41 Dose: 50 mg Documented By: TD Discontinued Medications Albuterol/Ipratropium (Albuterol/Ipratropium 3 Ml Ampul) 3 ml INH NOW ONE Stop: 09/06/25 17:44 Last Admin: 09/06/25 17:49 Dose: 3 ml Documented By: PAU Albuterol/Ipratropium (Albuterol/Ipratropium 3 Ml Ampul) 3 ml INH NOW ONE Stop: 09/06/25 19:43 Last Admin: 09/06/25 20:02 Dose: 3 ml Documented By: ANDREINA Aspirin (Aspirin 81 Mg Chew Tab) 324 mg PO NOW ONE Stop: 09/06/25 17:46 Last Admin: 09/06/25 17:51 Dose: Not Given Documented By: FANNY Ceftriaxone Sodium 1,000 mg/ (Sodium Chloride) 100 mls @ 200 mls/hr IV NOW ONE Stop: 09/06/25 18:33 Last Infusion: 09/06/25 19:26 Dose: Infused Documented By: Admin: 09/06/25 18:48 Dose: 200 mls/hr Documented By: FANNY Azithromycin 500 mg/ Dextrose 250 mls @ 250 mls/hr IV NOW ONE Stop: 09/06/25 18:33 Last Infusion: 09/06/25 20:00 Dose: Infused Documented By: Admin: 09/06/25 18:55 Dose: 250 mls/hr Documented By: FANNY Methylprednisolone (Methylprednisolone Succ 125 Mg/2 Ml Vial) 125 mg IV NOW ONE Stop: 09/06/25 18:38 Last Admin: 09/06/25 18:47 Dose: 125 mg Documented By: FANNY Oxycodone HCl (Oxycodone Ir 5 Mg Tablet) 5 mg PO NOW ONE Stop: 09/07/25 02:56 Vital Signs Vital signs: Vital Signs - 8 hr 09/06/25 19:30 09/06/25 19:30 09/06/25 20:00 Pulse Rate 93 H 91 H Respiratory Rate 31 H 33 H Blood Pressure 142/98 H Pulse Oximetry 96 96 Oxygen Delivery Method Fraction of Inspired Oxygen 09/06/25 20:03 Pulse Rate 86 Respiratory Rate 20 Blood Pressure Pulse Oximetry 96 Oxygen Delivery Method Room Air Fraction of Inspired Oxygen 21 <Manav Oliveira MD - Last Filed: 09/07/25 03:24> Orders Ordered: ED Orders 09/06/25 18:57 Blood Culture Stat 09/06/25 20:55 Lactate (Lactic Acid) Stat Troponin I Stat 09/07/25 06:00 Basic Metabolic Panel DAILY Complete Blood Count AUTO DIFF DAILY Acetaminophen (Acetaminophen 325 Mg Tablet) 650 mg PO Q6H PRN PRN Reason: Fever/Mild Pain (1-3) Last Admin: 09/06/25 20:21 Dose: 650 mg Documented By: ARLEY Albuterol/Ipratropium (Albuterol/Ipratropium 3 Ml Ampul) 3 ml INH RTQ4HR PRN PRN Reason: Shortness Of Breath Albuterol/Ipratropium (Albuterol/Ipratropium 3 Ml Ampul) 3 ml INH [id number] [facility] Atorvastatin Calcium (Atorvastatin 20 Mg Tablet) 80 mg PO BEDTIME [facility] Last Admin: 09/06/25 22:40 Dose: 80 mg Documented By: TD Benzonatate (Benzonatate 100 Mg Capsule) 100 mg PO TID PRN PRN Reason: Cough Last Admin: 09/06/25 22:40 Dose: 100 mg Documented By: TD Carvedilol (Carvedilol 3.125 Mg Tablet) 3.125 mg PO BID [facility] Last Admin: 09/06/25 22:42 Dose: 3.125 mg Documented By: TD Clopidogrel Bisulfate (Clopidogrel 75 Mg Tablet) 75 mg PO DAILY [facility] Cyclobenzaprine HCl (Cyclobenzaprine 10 Mg Tablet) 10 mg PO TID PRN PRN Reason: Muscle Spasm Last Admin: 09/06/25 22:41 Dose: 10 mg Documented By: TD Gabapentin (Gabapentin 100 Mg Capsule) 200 mg PO TID [facility] Last Admin: 09/06/25 22:21 Dose: Not Given Documented By: TD Guaifenesin/Codeine Phosphate (Codeine/Guaifenesin Liquid 5 Ml Udc) 10 ml PO Q6H PRN PRN Reason: Cough Last Admin: 09/06/25 22:45 Dose: 10 ml Documented By: TD Ceftriaxone Sodium 1,000 mg/ (Sodium Chloride) 100 mls @ 200 mls/hr IV DAILY [facility] Azithromycin 500 mg/ Dextrose 250 mls @ 250 mls/hr IV DAILY [facility] Dextrose (D10w) 100 mls @ 999 mls/hr IV PRN PRN PRN Reason: Hypoglycemia Insulin Glargine (Insulin Glargine 100 Unit/Ml 3ml Pen) 10 unit SUBCUT BEDTIME [facility] Last Admin: 09/06/25 22:39 Dose: 10 unit Documented By: TD Co-signed By: CLEMENTINE Insulin Human Lispro (Insulin Lispro 100 Unit/Ml 3ml Vial) 0 unit SUBCUT ACHS [facility]; Protocol Last Admin: 09/06/25 22:39 Dose: Not Given Documented By: TD Methylprednisolone (Methylprednisolone Succ 125 Mg/2 Ml Vial) 60 mg IV Q6H [facility] Naloxone HCl (Naloxone 0.4 Mg/Ml Vial) 0.2 mg IV Q2MIN PRN PRN Reason: Opiate Reversal Ondansetron HCl (Ondansetron 4 Mg/2 Ml Inj) 4 mg IV Q8HR PRN PRN Reason: Nausea And Vomiting Oxycodone HCl (Oxycodone Ir 5 Mg Tablet) 5 mg PO BID PRN PRN Reason: pain Last Admin: 09/06/25 22:41 Dose: 5 mg Documented By: TAYLOR Sertraline HCl (Sertraline 50 Mg Tablet) 50 mg PO DAILY DANIEL Trazodone HCl (Trazodone 50 Mg Tablet) 50 mg PO BEDTIME DANIEL Last Admin: 09/06/25 22:41 Dose: 50 mg Documented By: TD Discontinued Medications Albuterol/Ipratropium (Albuterol/Ipratropium 3 Ml Ampul) 3 ml INH NOW ONE Stop: 09/06/25 17:44 Last Admin: 09/06/25 17:49 Dose: 3 ml Documented By: PAU Albuterol/Ipratropium (Albuterol/Ipratropium 3 Ml Ampul) 3 ml INH NOW ONE Stop: 09/06/25 19:43 Last Admin: 09/06/25 20:02 Dose: 3 ml Documented By: ANDREINA Aspirin (Aspirin 81 Mg Chew Tab) 324 mg PO NOW ONE Stop: 09/06/25 17:46 Last Admin: 09/06/25 17:51 Dose: Not Given Documented By: FANNY Ceftriaxone Sodium 1,000 mg/ (Sodium Chloride) 100 mls @ 200 mls/hr IV NOW ONE Stop: 09/06/25 18:33 Last Infusion: 09/06/25 19:26 Dose: Infused Documented By: Admin: 09/06/25 18:48 Dose: 200 mls/hr Documented By: FANNY Azithromycin 500 mg/ Dextrose 250 mls @ 250 mls/hr IV NOW ONE Stop: 09/06/25 18:33 Last Infusion: 09/06/25 20:00 Dose: Infused Documented By: Admin: 09/06/25 18:55 Dose: 250 mls/hr Documented By: FANNY Methylprednisolone (Methylprednisolone Succ 125 Mg/2 Ml Vial) 125 mg IV NOW ONE Stop: 09/06/25 18:38 Last Admin: 09/06/25 18:47 Dose: 125 mg Documented By: FANNY Oxycodone HCl (Oxycodone Ir 5 Mg Tablet) 5 mg PO NOW ONE Stop: 09/07/25 02:56 Vital Signs Vital signs: Vital Signs - 8 hr 09/06/25 19:30 09/06/25 19:30 09/06/25 20:00 Pulse Rate 93 H 91 H Respiratory Rate 31 H 33 H Blood Pressure 142/98 H Pulse Oximetry 96 96 Oxygen Delivery Method Fraction of Inspired Oxygen 09/06/25 20:03 Pulse Rate 86 Respiratory Rate 20 Blood Pressure Pulse Oximetry 96 Oxygen Delivery Method Room Air Fraction of Inspired Oxygen 21 MDM - SOB/Dyspnea <Gomez Perez, DO - Last Filed: 09/06/25 18:33> Lab Data 09/06/25 17:31 09/06/25 17:31 Labs: Lab Results 09/06/25 09/06/25 09/06/25 Range/Units 17:31 17:48 17:53 WBC 6.3 (4.5-11.0) X10^3/uL RBC 4.27 (4.0-5.2) X10^6/uL Hgb 12.4 (12.0-16.0) g/dL Hct 37.9 (36-46) % MCV 88.7 (80-100) fL MCH 29.0 (26-34) PG MCHC 32.7 (30-36) % RDW 15.7 H (11.6-14.8) % Plt Count 343 (150-400) X10^3/uL Neut % (Auto) 81.1 H (50-75) % Lymph % (Auto) 14.6 L (25-40) % [place] % (Auto) 4.0 (3-14) % Eos % (Auto) 0.0 L (2-4) % Baso % (Auto) 0.3 (0-2) % Neut # (Auto) 5100 (4919-4273) /uL Lymph # (Auto) 900 L (7368-8169) /uL [place] # (Auto) 300 (0-900) /uL Eos # (Auto) 0 (0-450) /uL Baso # (Auto) 0 (0-100) /uL Sodium 139 (137-145) mmol/L Potassium 3.5 (3.4-5.1) mmol/L Chloride 103 (98-107) mmol/L Carbon Dioxide 24 (22-32) mmol/L BUN 21 H (7-17) mg/dL Creatinine 0.77 (0.52-1.04) mg/dL Estimated GFR > 60 (>60) mL/min BUN/Creatinine Ratio 27.3 H (6-22) Glucose 233 H (70-99) mg/dL Calcium 8.9 (8.4-10.2) mg/dL Magnesium 1.7 (1.6-2.3) mg/dL Total Bilirubin 0.3 (0.2-1.3) mg/dL AST 33 (14-36) IU/L ALT 32 (<35) IU/L Alkaline Phosphatase 123 (38-126) U/L Troponin I < 0.012 (0.01-0.034) ng/mL NT-Pro-B Natriuret Pep 277 H (<125) pg/mL Total Protein 7.8 (6.3-8.2) g/dL Albumin 4.6 (3.5-5.0) g/dL Globulin 3.2 (1.7-4.1) g/dL Albumin/Globulin Ratio 1.4 (1.0-2.8) Lipase 47 (23-300) U/L Urine RBC 1-5/hpf (0-5/HPF) Urine WBC None seen (0-5/HPF) Ur Squamous Epith Cells 1-5 /hpf (0-5/HPF) Amorphous Sediment 1+ Urine Bacteria Occasional (0-1) (None) Ur Culture Indicated? Cult not indicated Vol Urine Centrifuged 10ml (spun) SARS-CoV-2 (PCR) Negative (Negative) Influenza A (RT-PCR) Flu a negative (NEGATIVE) Influenza B (RT-PCR) Flu b negative (NEGATIVE) RSV (PCR) Negative (Negative) Urine Dip Bedside Urine Glucose Negative Bedside Urine Bilirubin - Negative Bedside Urine Ketone - Negative Urine Specific [place] 1.020 Bedside Urine Occult Blood +/- Bedside Urine pH 6.0 Bedside Urine Protein - Negative Bedside Urine Urobilinogen - Negative Bedside Urine Nitrite - Negative Bedside Urine Leukocytes - Negative Esterase MDM Narrative Medical decision making narrative: All lab work, vital signs, nurse triage note, medication list, previous ER visits, and all imaging studies reviewed. WBC 6.3 hemoglobin 12.4 platelet 343. Sodium 139 potassium 3.5 chloride 103 CO2 24 BUN 21 creatinine 0.77 glucose 233 LFTs are normal, troponin less than 0.012 BNP 277 chest x-ray patchy left opacity basilar given Rocephin Zithromax DuoNebs steroids <Manav Oliveira MD - Last Filed: 09/07/25 03:24> Lab Data Attestation: I reviewed the patient's lab results. Lab results narrative: White blood cell count 6300, hemoglobin 12.4, platelets adequate. Glucose 233, serum CO2 24 normal. Normal renal function. Normal electrolytes including potassium 3.5 noted. Liver functions lipase normal. Urine dip negative. Labs: Lab Results 09/06/25 09/06/25 09/06/25 Range/Units 17:31 17:48 17:53 WBC 6.3 (4.5-11.0) X10^3/uL RBC 4.27 (4.0-5.2) X10^6/uL Hgb 12.4 (12.0-16.0) g/dL Hct 37.9 (36-46) % MCV 88.7 (80-100) fL MCH 29.0 (26-34) PG MCHC 32.7 (30-36) % RDW 15.7 H (11.6-14.8) % Plt Count 343 (150-400) X10^3/uL Neut % (Auto) 81.1 H (50-75) % Lymph % (Auto) 14.6 L (25-40) % [place] % (Auto) 4.0 (3-14) % Eos % (Auto) 0.0 L (2-4) % Baso % (Auto) 0.3 (0-2) % Neut # (Auto) 5100 (8609-4216) /uL Lymph # (Auto) 900 L (9996-6669) /uL [place] # (Auto) 300 (0-900) /uL Eos # (Auto) 0 (0-450) /uL Baso # (Auto) 0 (0-100) /uL Sodium 139 (137-145) mmol/L Potassium 3.5 (3.4-5.1) mmol/L Chloride 103 (98-107) mmol/L Carbon Dioxide 24 (22-32) mmol/L BUN 21 H (7-17) mg/dL Creatinine 0.77 (0.52-1.04) mg/dL Estimated GFR > 60 (>60) mL/min BUN/Creatinine Ratio 27.3 H (6-22) Glucose 233 H (70-99) mg/dL Calcium 8.9 (8.4-10.2) mg/dL Magnesium 1.7 (1.6-2.3) mg/dL Total Bilirubin 0.3 (0.2-1.3) mg/dL AST 33 (14-36) IU/L ALT 32 (<35) IU/L Alkaline Phosphatase 123 (38-126) U/L Troponin I < 0.012 (0.01-0.034) ng/mL NT-Pro-B Natriuret Pep 277 H (<125) pg/mL Total Protein 7.8 (6.3-8.2) g/dL Albumin 4.6 (3.5-5.0) g/dL Globulin 3.2 (1.7-4.1) g/dL Albumin/Globulin Ratio 1.4 (1.0-2.8) Lipase 47 (23-300) U/L Urine RBC 1-5/hpf (0-5/HPF) Urine WBC None seen (0-5/HPF) Ur Squamous Epith Cells 1-5 /hpf (0-5/HPF) Amorphous Sediment 1+ Urine Bacteria Occasional (0-1) (None) Ur Culture Indicated? Cult not indicated Vol Urine Centrifuged 10ml (spun) SARS-CoV-2 (PCR) Negative (Negative) Influenza A (RT-PCR) Flu a negative (NEGATIVE) Influenza B (RT-PCR) Flu b negative (NEGATIVE) RSV (PCR) Negative (Negative) Urine Dip Bedside Urine Glucose Negative Bedside Urine Bilirubin - Negative Bedside Urine Ketone - Negative Urine Specific [place] 1.020 Bedside Urine Occult Blood +/- Bedside Urine pH 6.0 Bedside Urine Protein - Negative Bedside Urine Urobilinogen - Negative Bedside Urine Nitrite - Negative Bedside Urine Leukocytes - Negative Esterase Imaging Data Chest x-ray: Radiologist's Impression: [address] [address] XRay Report Signed Patient: Cira Stafford MR#: [id number] : 1960 Acct:[id number] Age/Sex: 65 / F Date of Service: 09/06/25 Loc: ED Accession Number: [id number] Procedure: XR chest 1V Ordering Provider: Gomez Perez D.O. PROCEDURE: XR CHEST 1V INDICATIONS: sob TECHNIQUE: One view of the chest was acquired. COMPARISON: , CR, XR CHEST 1V, 08/16/2025, 20:59. , CR, XR CHEST 1V, 12/09/2024, 12:52. FINDINGS: Surgical changes and devices: None. Lungs and pleura: Patchy left basilar opacity. Mediastinum: Mediastinal contours appear normal. Heart size is normal. Bones and chest wall: No suspicious bony lesions. Overlying soft tissues appear unremarkable. IMPRESSION: Patchy left basilar opacity, could represent infection, aspiration or atelectasis. Dictated by: Jesus Odonnell M.D. on 09/06/2025 at 17:26 Approved by: Jesus Odonnell M.D. on 09/06/2025 at 17:27 ECG Data Attestation: I personally reviewed and interpreted this ECG as follows: Interpretation: 1817, sinus tachycardia with rate of 101. No obvious ST segment elevation or depression changes. TN 130, QRS 74, QTC 461. MDM Narrative Medical decision making narrative: All lab work, vital signs, nurse triage note, medication list, previous ER visits, and all imaging studies reviewed. WBC 6.3 hemoglobin 12.4 platelet 343. Sodium 139 potassium 3.5 chloride 103 CO2 24 BUN 21 creatinine 0.77 glucose 233 LFTs are normal, troponin less than 0.012 BNP 277 chest x-ray patchy left opacity basilar given Rocephin Zithromax DuoNebs steroids 09/06/25, 1830, Oliveira. Sign-out from Dr. Perez. 65-year-old female with history of COPD arrived by EMS with coughing and wheezing for the last 2 days, late last month had COVID illness last month, had exacerbation of her COPD, had been taking prednisone which was tapered off. Given breathing treatment during transport. Wheezing on examination, IV Solu-Medrol, felt to have left-sided pneumonia, IV ceftriaxone and azithromycin initiated, troponin negative, BNP not elevated. Lactate and blood cultures sent, and antibiotics initiated. Possible admission. Await results of repeat troponin. Assumed care. EKG shows sinus tachycardia without obvious ischemic changes. Chest x-ray shows patchy left basilar infiltrates, see radiology report. Lab data: White blood cell count 6300, hemoglobin 12.4, platelets adequate. Glucose 233, serum CO2 24 normal. Normal renal function. Normal electrolytes including potassium 3.5 noted. Liver functions lipase normal. Urine dip negative. 1930, no oxygen requirement but has mild intercostal retractions and speaking short of full sentences, will give additional breathing treatment. Consider admission. PCP Yasmin. We will contact hospitalist. 1999, case discussed with hospitalist Dr. Franklin who accepts patient for admission Critical Care Time <Manav Oliveira MD - Last Filed: 09/07/25 03:24> Critical Care Time Critical Care Time: Yes Total Critical Care Time: 35 Attestation: The high probability of a clinically significant, sudden or life threatening deterioration of the [cardiopulmonary] system(s) required my full and direct attention, intervention and personal management. The aggregate critical care time was [35] minutes. This time is in addition to time spent performing reported procedures but includes the following: [x] Data Review and interpretation [x] Patient assessment and monitoring of vital signs [x] Documentation [x] Medication orders and management Discharge Plan Departure Patient Disposition: Admitted as Observation Clinical Impression: COPD exacerbation, Pneumonia, Dyspnea Admit Date/Time: 09/06/25 20:07 Admit Provider: Balwinder Franklin
--- NOTE | 2025-09-06 17:45 | DI.RAD.S_ITS ---
PROCEDURE: XR CHEST 1V INDICATIONS: sob TECHNIQUE: One view of the chest was acquired. COMPARISON: [facility], CR, XR CHEST 1V, 08/16/2025, 20:59. [facility], CR, XR CHEST 1V, 12/09/2024, 12:52. FINDINGS: Surgical changes and devices: None. Lungs and pleura: Patchy left basilar opacity. Mediastinum: Mediastinal contours appear normal. Heart size is normal. Bones and chest wall: No suspicious bony lesions. Overlying soft tissues appear unremarkable. IMPRESSION: Patchy left basilar opacity, could represent infection, aspiration or atelectasis. Dictated by: Jesus Odonnell M.D. on 09/06/2025 at 17:26 Approved by: Jesus Odonnell M.D. on 09/06/2025 at 17:27
--- NOTE | 2025-09-06 17:45 | EKG_ITS ---
[facility] [address], [place] [address] Test Date: 2025-09-06 Pat Name: Cira Stafford Department: [facility] Room: Gender: Female Oncology Pharmacist: PAU : 1960 Requested By: Order Number: [id number] Reading MD: Rolly Plata Measurements Intervals [place] Rate: 101 P: 50 KS: 130 QRS: 4 QRSD: 74 T: 42 QT: 356 QTc: 461 Interpretive Statements Sinus tachycardia Electronically Signed On 09-07-2025 17:07:49 PDT by Rolly Plata
[2025-09-06] MEDS: ALBUTEROL/IPRATROPIUM 3 ML AMPUL INH ×2 (17:49→20:02)
[2025-09-06 17:51] LABS: Add Manual Diff / Slide Review NO; Hematocrit 37.9 % (36-46); Hemoglobin 12.4 g/dL (12.0-16.0); Lymphocytes Absolute Auto 900 /uL (1100-4500); Mean Corpuscular HGB Conc 32.7 % (30-36); Mean Corpuscular Hemoglobin 29.0 PG (26-34); Mean Corpuscular Volume 88.7 fL (80-100); Platelet Count 343 X10^3/uL (150-400)
[2025-09-06 18:10] LABS: Alanine Aminotransferase 32 IU/L (<35); Albumin 4.6 g/dL (3.5-5.0); Albumin Globulin Ratio 1.4 (1.0-2.8); Alkaline Phosphatase 123 U/L (38-126); Blood Urea Nitrogen 21 mg/dL (7-17); Calcium 8.9 mg/dL (8.4-10.2); Carbon Dioxide 24 mmol/L (22-32); Chloride 103 mmol/L (98-107); Estimated Glomerular Filt Rate > 60 mL/min (>60); Globulin 3.2 g/dL (1.7-4.1); Glucose 233 mg/dL (70-99); HEMOLYSIS < 15 (0-50); Lipase 47 U/L (23-300); Magnesium 1.7 mg/dL (1.6-2.3); Potassium 3.5 mmol/L (3.4-5.1); Sodium 139 mmol/L (137-145); Total Protein 7.8 g/dL (6.3-8.2)
[2025-09-06 18:22] LABS: NT-proBNP (BNP-Adult 18+) 277 pg/mL (<125); Troponin I < 0.012 ng/mL (0.01-0.034)
[2025-09-06 18:41] LABS: COVID-19 CEPHEID 4-PLEX PCR Negative (Negative); Influenza A - CEPHEID Flu A NEGATIVE (NEGATIVE); Influenza B - CEPHEID Flu B NEGATIVE (NEGATIVE)
[2025-09-06] MEDS: methylPREDNISolone succ 125 MG/2 ML VIAL IV (18:47)
[2025-09-06] MEDS: AZITHROMYCIN 500 MG in DEXTROSE 5% IN WATER 250 ML 250 MG IV (18:55)
--- NOTE | 2025-09-06 19:01 | PC.NURSE ---
Pt starting to feel better with her breathing. Able to talk full sentences. Still coughing
[2025-09-06 19:02] LABS: Culture Indicated Urine Cult Not Indicated
[2025-09-06] MEDS: ACETAMINOPHEN 325 MG TABLET 650 MG PO (20:21)
[2025-09-06 21:18] LABS: Lactate (Lactic Acid) 1.5 mmol/L (0.7-2.1)
[2025-09-06 21:30] LABS: Troponin I < 0.012 ng/mL (0.01-0.034)
[2025-09-06] MEDS: INSULIN GLARGINE 100 UNIT/ML 3ML PEN 10 UNIT SUBCUT (22:39)
[2025-09-06] MEDS: ATORVASTATIN 20 MG TABLET 80 MG PO (22:40)
[2025-09-06] MEDS: BENZONATATE 100 MG CAPSULE PO (22:40)
[2025-09-06] MEDS: CYCLOBENZAPRINE 10 MG TABLET PO (22:41)
[2025-09-06] MEDS: CODEINE/guaiFENesin LIQUID 5 ML UDC 10 ML PO (22:45)
[2025-09-07] MEDS: methylPREDNISolone succ 125 MG/2 ML VIAL 60 MG IV ×3 (05:41→17:38)
--- NOTE | 2025-09-07 06:19 | PM.HP.1 ---
History of Present Illness History of Present Illness Date Patient Seen: 09/06/25 Time Patient Seen: 20:25 Chief complaint: COPD Exacerbation Narrative: 65-year-old female with past medical history of hypertension, ttl-wmmaoms-szclbrdfo diabetes, hyperlipidemia, coronary disease, COPD not oxygen dependent, CVA and seizure disorder presenting with shortness of breath and coughing. Per the patient's report, the patient was diagnosed with COVID about a month ago. The patient also has seen in our ER 3 weeks ago for COPD exacerbation. The patient stated over the last few days the patient has increased shortness of breath and wheezing. The patient also had some cough with minimal sputum production. Otherwise the patient denies any fever, chills, nausea, vomiting, diarrhea, chest pain or syncope. In the emergency room, the patient was hemodynamically stable. The patient was still saturating well on room air. However the patient was still having significant shortness of breath despite having IV Solu-Medrol and DuoNebs. The patient also demonstrated possible pneumonia on chest x-ray. Labs were relatively benign however. Viral respiratory panel negative. Patient was given azithromycin and ceftriaxone. [facility] Medical History (Updated 09/06/25 @ 20:18 by Manav Oliveira MD) Insomnia CHF (congestive heart failure) Chronic pain History of CVA (cerebrovascular accident) Myocardial infarction Hepatic steatosis Drug-seeking behavior Seizures Peptic ulcer disease PTSD (post-traumatic stress disorder) Depression Easy bruisability Osteoarthritis GERD (gastroesophageal reflux disease) HLD (hyperlipidemia) HTN (hypertension) Asthma Hearing loss Prediabetes Other chronic pain Tinea pedis Pain in right hip Anxiety Coronary artery disease COPD (chronic obstructive pulmonary disease) Stroke (1999) Surgical History (Updated 08/30/25 @ 10:24 by Nahomi Hoffman MD) Hx of colonoscopy Hx of tonsillectomy History of surgery on wrist History of bilateral knee replacement Social History household members: none alcohol intake: never Meds Home Medications and Allergies Home Medications ?Medication ?Instructions ?Recorded ?Confirmed ?Type acetaminophen 500 mg tablet 1,000 mg PO Q12H 11/26/24 09/06/25 History albuterol sulfate 90 mcg/actuation 2 puff inhalation Q4H PRN Wheezing 11/26/24 09/06/25 History aerosol inhaler benzonatate 100 mg capsule 100 mg PO TID PRN Cough #60 caps 08/22/25 09/06/25 Rx codeine 10 mg-guaifenesin 100 mg/5 10 ml PO Q6H PRN cough #120 mL 08/22/25 09/06/25 Rx mL oral liquid atorvastatin 40 mg tablet 80 mg (2 x 40 mg) PO BEDTIME #90 08/30/25 09/06/25 Rx tabs carvedilol 3.125 mg tablet 3.125 mg PO BID #180 tabs 08/30/25 09/06/25 Rx cetirizine 10 mg tablet 10 mg PO DAILY 08/30/25 09/06/25 History clopidogrel 75 mg tablet 75 mg PO DAILY #90 tabs 08/30/25 09/06/25 Rx cyclobenzaprine 10 mg tablet 10 mg PO TID PRN muscle spasm #90 08/30/25 09/06/25 Rx tabs gabapentin 100 mg capsule 200 mg (2 x 100 mg) PO TID #60 caps 08/30/25 09/06/25 Rx hydrochlorothiazide 25 mg tablet 25 mg PO DAILY #90 tabs 08/30/25 09/06/25 Rx hydroxyzine HCl 25 mg tablet 25 mg PO TID PRN Anxiety #60 tabs 08/30/25 09/06/25 Rx ipratropium bromide 21 mcg (0.03 2 spray intranasal BID #30 mL 08/30/25 09/06/25 Rx %) nasal spray lidocaine 5 % topical patch 1 patch topical DAILY PRN Pain #30 08/30/25 09/06/25 Rx ea losartan 100 mg tablet 100 mg PO QAM #90 tabs 08/30/25 09/06/25 Rx metformin 500 mg tablet,extended 500 mg PO DAILY #90 tabs 08/30/25 09/06/25 Rx release 24 hr oxycodone 5 mg tablet 5 mg PO BID PRN pain #30 tabs 08/30/25 09/06/25 Rx sertraline 50 mg tablet 50 mg PO QAM #90 tabs 08/30/25 09/06/25 Rx trazodone 50 mg tablet 50 mg PO ONCE PM #90 tabs 08/30/25 09/06/25 Rx prednisone 10 mg tablet 20 mg PO DAILY 09/06/25 09/06/25 History Allergies Allergy/AdvReac Type Severity Reaction Status Date / Time aspirin (ASPIRIN) Allergy Severe Throat Verified 09/06/25 17:42 closes, eye itching, difficulty breathing buprenorphine (From Suboxone) Allergy Severe Throat Verified 09/06/25 17:42 closing, vomiting ibuprofen (IBUPROFEN) Allergy Severe Throat Verified 09/06/25 17:42 closes, eye itching, difficulty breathing ketorolac (From TORADOL) Allergy Severe Throat Verified 09/06/25 17:42 closes, eye itching, difficulty breathing methadone Allergy Severe Hard time Verified 09/06/25 17:42 breathing, my vital signs were dropping naloxone (From Suboxone) Allergy Severe Throat Verified 09/06/25 17:42 closing, vomiting NSAIDS (Non-Steroidal Allergy Severe Throat Verified 09/06/25 17:42 Anti-Inflamma closes, eye itching, difficulty breathing tramadol (TRAMADOL) Allergy Severe Rash, my Verified 09/06/25 17:42 throat was closing Beef Containing Products Allergy Hives Verified 09/06/25 17:42 duloxetine Allergy Rash Verified 09/06/25 17:42 gabapentin AdvReac Gastrointestinal Verified 09/06/25 17:42 Upset Exam Vital Signs (past 8 hours): - 09/06/25 22:42 Pulse Rate 90 Blood Pressure 136/86 Fraction of Inspired Oxygen 21 SaO2/FiO2 Ratio 461 Oxygen Delivery Method Room Air Oxygen Flow Rate 0 Narrative Exam Narrative: Physical Exam: GENERAL: The patient is not in any acute distressed. Awake and alert. HEENT: Nonicteric sclerae, PERRLA, EOMI. Oropharynx clear. Moist mucous membranes. Conjunctivae appear well perfused. HEART: Regular rate and rhythm without murmurs. No lower extremities edema. LUNGS: Bilateral wheezing but otherwise Clear to auscultation bilaterally. No crackles or rhonchi ABDOMEN: Soft, positive bowel sounds, nontender. SKIN: No rash, no excessive bruising, petechiae, or purpura. NEUROLOGIC: AxO x 3. Cranial nerves II-XII intact without motor/sensory deficit. Objective Labs 09/06/25 17:31 09/06/25 17:31 Labs: Laboratory Results - last 24 hr 09/06/25 09/06/25 09/06/25 17:31 17:48 17:53 WBC 6.3 RBC 4.27 Hgb 12.4 Hct 37.9 MCV 88.7 MCH 29.0 MCHC 32.7 RDW 15.7 H Plt Count 343 Neut % (Auto) 81.1 H Lymph % (Auto) 14.6 L [place] % (Auto) 4.0 Eos % (Auto) 0.0 L Baso % (Auto) 0.3 Neut # (Auto) 5100 Lymph # (Auto) 900 L [place] # (Auto) 300 Eos # (Auto) 0 Baso # (Auto) 0 Sodium 139 Potassium 3.5 Chloride 103 Carbon Dioxide 24 BUN 21 H Creatinine 0.77 Estimated GFR > 60 BUN/Creatinine Ratio 27.3 H Glucose 233 H POC Whole Bld Glucose Lactate Calcium 8.9 Magnesium 1.7 Total Bilirubin 0.3 AST 33 ALT 32 Alkaline Phosphatase 123 Troponin I < 0.012 NT-Pro-B Natriuret Pep 277 H Total Protein 7.8 Albumin 4.6 Globulin 3.2 Albumin/Globulin Ratio 1.4 Lipase 47 Urine RBC 1-5/hpf Urine WBC None seen Ur Squamous Epith Cells 1-5 /hpf Amorphous Sediment 1+ Urine Bacteria Occasional (0-1) Ur Culture Indicated? Cult not indicated Vol Urine Centrifuged 10ml (spun) SARS-CoV-2 (PCR) Negative Influenza A (RT-PCR) Flu a negative Influenza B (RT-PCR) Flu b negative RSV (PCR) Negative 09/06/25 09/06/25 20:55 21:48 WBC RBC Hgb Hct MCV MCH MCHC RDW Plt Count Neut % (Auto) Lymph % (Auto) [place] % (Auto) Eos % (Auto) Baso % (Auto) Neut # (Auto) Lymph # (Auto) [place] # (Auto) Eos # (Auto) Baso # (Auto) Sodium Potassium Chloride Carbon Dioxide BUN Creatinine Estimated GFR BUN/Creatinine Ratio Glucose POC Whole Bld Glucose 172 H Lactate 1.5 Calcium Magnesium Total Bilirubin AST ALT Alkaline Phosphatase Troponin I < 0.012 NT-Pro-B Natriuret Pep Total Protein Albumin Globulin Albumin/Globulin Ratio Lipase Urine RBC Urine WBC Ur Squamous Epith Cells Amorphous Sediment Urine Bacteria Ur Culture Indicated? Vol Urine Centrifuged SARS-CoV-2 (PCR) Influenza A (RT-PCR) Influenza B (RT-PCR) RSV (PCR) Assessment & Plan Assessment & Plan narrative: COPD exacerbation. Admit the patient to medical telemetry as observation. Admit the patient does not require oxygen at this time. Continue IV Solu-Medrol and DuoNebs. Treat underlying possible infection. Pneumonia. Continue IV ceftriaxone and azithromycin. Monitor for sepsis. Hypertension. Monitor blood pressure resume home medication accordingly. Hyperlipidemia. Resume home statin. Neuropathy. Resume home. Colitis Rectal Negative. Denies Any Chest Pain. Resume Home Cardiac Medication. Uqr-Xhvvsiy-Gfifzxihe Diabetes. Hold Home Metformin. Continues to Monitor Glucose with Subcu Insulin. Depression. Resume Home Sertraline. DVT Prophylaxis Heparin Subcu. CODE STATUS Full Code. Disposition Likely Home in 1-2 Days. - As the provider of this telehealth evaluation, requested by the patient's evaluating physician, I attest that I introduced myself to the patient, provided my credentials and determined that telemedicine via a real-time, 2 way interactive audio and video platform is an appropriate and effective means of providing this service. - I reviewed the patient's chart and had a discussion with the member of the patient's treatment team. - The patient and I mutually agreed with continuation of this evaluation via telemedicine. The patient consented for the telemedicine evaluation. - This virtual encounter was taken place from [place] by Dr. Balwinder Franklin. The patient was evaluated at [facility]. The encounter was approximately 35 minutes. The nurse was present during the entire time of the encounter and was able assists with the stethoscope to listen to the patients. Time-Based Coding :: [TOTAL MINUTES] spent with patient and on the chart (including review of chart, obtaining history, exam, reviewing outside data, placing orders, documenting exam and treatment plan, and counseling patient) on [DATE].
[2025-09-07 06:24] LABS: Add Manual Diff / Slide Review NO; Hematocrit 35.0 % (36-46); Hemoglobin 11.6 g/dL (12.0-16.0); Lymphocytes Absolute Auto 1100 /uL (1100-4500); Mean Corpuscular HGB Conc 33.2 % (30-36); Mean Corpuscular Hemoglobin 29.3 PG (26-34); Mean Corpuscular Volume 88.4 fL (80-100); Platelet Count 320 X10^3/uL (150-400)
[2025-09-07 06:47] LABS: Blood Urea Nitrogen 20 mg/dL (7-17); Calcium 9.2 mg/dL (8.4-10.2); Carbon Dioxide 24 mmol/L (22-32); Chloride 105 mmol/L (98-107); Estimated Glomerular Filt Rate > 60 mL/min (>60); Glucose 161 mg/dL (70-99); HEMOLYSIS < 15 (0-50); Potassium 3.9 mmol/L (3.4-5.1); Sodium 137 mmol/L (137-145)
--- NOTE | 2025-09-07 07:24 | P.PN_ITS ---
Subjective Subjective Interval history: Admitted for COPD exacerbation, had Covid 1 month ago. S: She has an ongoing cough and dyspnea. Some abdomen pain O: NAD, alert and oriented. Fluent speech. Lungs are clear, normal rate and effort. Heart is regular, no murmur gallop or rub. Abdomen is soft, non distended. Extremities are free of edema. IMAGING: CXR: mild fluid overload. A/P: 1. COPD exacerbation. Admit the patient to medical telemetry as observation. Admit the patient does not require oxygen at this time. Continue IV Solu-Medrol and DuoNebs. Treat underlying possible infection. 2. Pneumonia. Continue IV ceftriaxone and azithromycin. Monitor for sepsis. 3. Hypertension. Monitor blood pressure resume home medication accordingly. 4. Hyperlipidemia. Resume home statin. 5. Neuropathy. Resume home. 6. Colitis Rectal Negative. Denies Any Chest Pain. Resume Home Cardiac Medication. 7. Owb-Phcynmt-Szcsxlfet Diabetes. Hold Home Metformin. Continues to Monitor Glucose with Subcu Insulin. 8. Depression. Resume Home Sertraline. PLAN: -Continue current Rx and lasix 40 IV once. DVT Prophylaxis Heparin Subcu. CODE STATUS Full Code. Exam Vital Signs (past 8 hours): Fraction of Inspired Oxygen 21 SaO2/FiO2 Ratio 461 Oxygen Delivery Method Room Air Oxygen Flow Rate 0 Objective Labs 09/07/25 06:07 09/07/25 06:07 Labs: Laboratory Results - last 24 hr 09/06/25 09/06/25 09/06/25 17:31 17:48 17:53 WBC 6.3 RBC 4.27 Hgb 12.4 Hct 37.9 MCV 88.7 MCH 29.0 MCHC 32.7 RDW 15.7 H Plt Count 343 Neut % (Auto) 81.1 H Lymph % (Auto) 14.6 L [place] % (Auto) 4.0 Eos % (Auto) 0.0 L Baso % (Auto) 0.3 Neut # (Auto) 5100 Lymph # (Auto) 900 L [place] # (Auto) 300 Eos # (Auto) 0 Baso # (Auto) 0 Sodium 139 Potassium 3.5 Chloride 103 Carbon Dioxide 24 BUN 21 H Creatinine 0.77 Estimated GFR > 60 BUN/Creatinine Ratio 27.3 H Glucose 233 H POC Whole Bld Glucose Lactate Calcium 8.9 Magnesium 1.7 Total Bilirubin 0.3 AST 33 ALT 32 Alkaline Phosphatase 123 Troponin I < 0.012 NT-Pro-B Natriuret Pep 277 H Total Protein 7.8 Albumin 4.6 Globulin 3.2 Albumin/Globulin Ratio 1.4 Lipase 47 Urine RBC 1-5/hpf Urine WBC None seen Ur Squamous Epith Cells 1-5 /hpf Amorphous Sediment 1+ Urine Bacteria Occasional (0-1) Ur Culture Indicated? Cult not indicated Vol Urine Centrifuged 10ml (spun) SARS-CoV-2 (PCR) Negative Influenza A (RT-PCR) Flu a negative Influenza B (RT-PCR) Flu b negative RSV (PCR) Negative 09/06/25 09/06/25 09/07/25 20:55 21:48 06:07 WBC 6.6 RBC 3.96 L Hgb 11.6 L Hct 35.0 L MCV 88.4 MCH 29.3 MCHC 33.2 RDW 15.6 H Plt Count 320 Neut % (Auto) 78.3 H Lymph % (Auto) 16.0 L [place] % (Auto) 5.0 Eos % (Auto) 0.0 L Baso % (Auto) 0.7 Neut # (Auto) 5200 Lymph # (Auto) 1100 [place] # (Auto) 300 Eos # (Auto) 0 Baso # (Auto) 0 Sodium 137 Potassium 3.9 Chloride 105 Carbon Dioxide 24 BUN 20 H Creatinine 0.55 Estimated GFR > 60 BUN/Creatinine Ratio 36.4 H Glucose 161 H POC Whole Bld Glucose 172 H Lactate 1.5 Calcium 9.2 Magnesium Total Bilirubin AST ALT Alkaline Phosphatase Troponin I < 0.012 NT-Pro-B Natriuret Pep Total Protein Albumin Globulin Albumin/Globulin Ratio Lipase Urine RBC Urine WBC Ur Squamous Epith Cells Amorphous Sediment Urine Bacteria Ur Culture Indicated? Vol Urine Centrifuged SARS-CoV-2 (PCR) Influenza A (RT-PCR) Influenza B (RT-PCR) RSV (PCR) [facility] Medical History (Updated 09/06/25 @ 20:18 by Manav Oliveira MD) Insomnia CHF (congestive heart failure) Chronic pain History of CVA (cerebrovascular accident) Myocardial infarction Hepatic steatosis Drug-seeking behavior Seizures Peptic ulcer disease PTSD (post-traumatic stress disorder) Depression Easy bruisability Osteoarthritis GERD (gastroesophageal reflux disease) HLD (hyperlipidemia) HTN (hypertension) Asthma Hearing loss Prediabetes Other chronic pain Tinea pedis Pain in right hip Anxiety Coronary artery disease COPD (chronic obstructive pulmonary disease) Stroke (1999) Surgical History (Updated 08/30/25 @ 10:24 by Nahomi Hoffman MD) Hx of colonoscopy Hx of tonsillectomy History of surgery on wrist History of bilateral knee replacement Social History household members: none alcohol intake: never Assessment & Plan Time-Based Coding :: [TOTAL MINUTES] spent with patient and on the chart (including review of chart, obtaining history, exam, reviewing outside data, placing orders, documenting exam and treatment plan, and counseling patient) on [DATE].
[2025-09-07 07:53] VITALS: BP 136/74; PULSE 85; RESP 22; TEMP 36.1; O2SAT 99
[2025-09-07] MEDS: INSULIN LISPRO 100 UNIT/ML 3ML VIAL SUBCUT ×5 (08:05→20:20)
[2025-09-07] MEDS: BENZONATATE 100 MG CAPSULE PO (08:06)
[2025-09-07] MEDS: SERTRALINE 50 MG TABLET PO (09:15)
[2025-09-07] MEDS: CLOPIDOGREL 75 MG TABLET PO (09:15)
[2025-09-07] MEDS: CYCLOBENZAPRINE 10 MG TABLET PO ×2 (09:16→14:39)
[2025-09-07] MEDS: CODEINE/guaiFENesin LIQUID 5 ML UDC 10 ML PO ×2 (09:19→20:38)
[2025-09-07 09:24] VITALS: PULSE 95; RESP 24; O2SAT 100
[2025-09-07] MEDS: ALBUTEROL/IPRATROPIUM 3 ML AMPUL INH ×3 (09:24→20:21)
--- NOTE | 2025-09-07 09:48 | RT ---
SUGGESTED POSSIBLE NEED FOR LASIX TO DR. ALATORRE.
[2025-09-07] MEDS: AZITHROMYCIN 500 MG in DEXTROSE 5% IN WATER 250 ML 250 MG IV (10:46)
[2025-09-07 13:20] VITALS: PULSE 92; RESP 20; O2SAT 99
--- NOTE | 2025-09-07 13:25 | CM.DANOTE ---
Patient is a 65yo female, resident of [place], was admitted INPT Status on 09/06/25 for COPD exacerbation and possible PNA. Pt recently admitted for similar last month Jul 2025 and also COVID+ and was able to discharge home with CGs. Pt's Primary Care Provider is Dr. Jairo Hart MD with [facility] and insurance is Medicare and Medicaid. (Insurance Card and ID scanned into chart) Reviewed chart and discussed with multidisciplinary team pt's medical status and initial discharge needs. MD anticipates possible discharge home tomorrow Fri if stable. DCP met w/patient at bedside; introduced self and role. Patient was found in bed, alert and oriented, cooperative with assessment. Pt confirmed living situation and good support in family and caregivers. Pt expressed preference in discharge home when cleared. Pt currently has caregivers through the [facility] program, 5 days/week. Her main Caregiver is, [place], but they are in [place] for family leave - she states she still gets fill in caregivers through [facility] (# [phone]) but the caregivers the agency has provided have not been very well vetted as some do not have the ability to provide transport to her appointments or pickling operator meds and her [facility] CM in [facility] is looking into using a different CG agency. Pt has a history of [facility] for SNF Rehab (February 2025) and was referred to [facility] but they did not establish care. Pt states she did not have the best experience with HH agency in the past and does not feel it will be needed. Pt unsure if she will have someone to transport her home at discharge but confirms she has Medicaid transport that she has used before to get home. Pt uses scooter or 4WW at home and does not drive. Pt states she has not completed Medical POA pwk but plans to have her local brother who lives near her to be POA but he is about to have bilateral hip surgery so waiting until he is recovering from surgery. Plan: SW to follow for plan of likely discharge home with ongoing [facility] CG support and local family but need to confirm family can transport vs Medicaid Transport. Pt declines need for SNF or HH at this time. CHARLY Feldman Discharge Planning/Care Management CM Discharge Assessment Start: 09/06/25 20:45 Freq: Status: Active Protocol: Document 09/07/25 13:22 BF (Rec: 09/07/25 13:25 BF [id number]) Discharge Planning Assessment Assigned Discharge CHARLY Zimmerman Cutter Grinder Provider Dr. Nahomi Hoffman Insurance Medicaid,Medicare DPOA/Assigned plans to assign her brother Designee Name Advance Directives? Yes: Yes/POLST Advance Directives No on File History Provided By Patient,Medical Record Has Patient been Yes admitted in last 30 days? Comment Here last month and discharged home Prior Living House Arrangements Household Members none Type of Relies on Others transporation used prior to admit Comment Medicaid transport or [facility] CG Independent with ADL Yes: somewhat, but has [facility] 's Is patient alert and Yes oriented? Needs Assistance Meal Prep,Home Chores / Shopping With Caregiver for No Another Community Services Transportation used prior to admission: DME Already Rented / FWW / Walker Owned Comment FWW, cane, and electric scooter Barriers to No Discharge Discharge Plan Home Transportation Family/Niece [place] or Medicaid transport Arrangement Referrals Initiated None needed Additional Comment Pt had poor experience with HH and wants home with her [facility] CGs Whiteboard Updated Yes in Patient Room with name and ext. # of Mechanical Engineering Technologist Review Status In Process Please Provide Date 09/07/25 Initial DC Assessment Was Performed Next Review Type Continued Stay Review
--- NOTE | 2025-09-07 17:32 | PC.NURSE ---
Discharge instructions given and understood. PIV removed. Pt discharged with pt's family via private vehicle, escorted to the entrance via wheelchair
[2025-09-07] MEDS: ONDANSETRON 4 MG/2 ML INJ IV (20:20)
[2025-09-07] MEDS: INSULIN GLARGINE 100 UNIT/ML 3ML PEN 10 UNIT SUBCUT (20:21)
[2025-09-07 20:22] VITALS: PULSE 81; RESP 20; O2SAT 100
[2025-09-07] MEDS: ATORVASTATIN 20 MG TABLET 80 MG PO (20:22)
[2025-09-07 20:24] VITALS: BP 153/83; PULSE 86
[2025-09-07 21:00] VITALS: BP 159/93; PULSE 86; RESP 17; TEMP 36.4; O2SAT 99
[2025-09-08] MEDS: methylPREDNISolone succ 125 MG/2 ML VIAL 60 MG IV ×5 (00:19→23:07)
[2025-09-08] MEDS: CODEINE/guaiFENesin LIQUID 5 ML UDC 10 ML PO ×3 (05:46→22:13)
[2025-09-08] MEDS: CYCLOBENZAPRINE 10 MG TABLET PO ×2 (05:46→22:12)
[2025-09-08 07:12] LABS: Labcorp Creatine Kinase MB 3.7 ng/mL (0.0-5.3)
[2025-09-08] MEDS: SERTRALINE 50 MG TABLET PO (08:38)
[2025-09-08] MEDS: CLOPIDOGREL 75 MG TABLET PO (08:38)
[2025-09-08] MEDS: ENOXAPARIN 40 MG/0.4 ML SYRINGE SUBCUT (08:38)
[2025-09-08] MEDS: INSULIN LISPRO 100 UNIT/ML 3ML VIAL SUBCUT ×6 (08:40→16:51)
[2025-09-08 09:15] VITALS: BP 178/97; PULSE 74; RESP 22; TEMP 36.7; O2SAT 98
[2025-09-08 09:36] VITALS: PULSE 92; RESP 22; O2SAT 96
[2025-09-08] MEDS: ALBUTEROL/IPRATROPIUM 3 ML AMPUL INH ×3 (09:36→20:01)
[2025-09-08] MEDS: AZITHROMYCIN 500 MG in DEXTROSE 5% IN WATER 250 ML 250 MG IV (09:42)
--- NOTE | 2025-09-08 12:41 | CM.DPNOTE ---
DCP Continued: Reviewed EMR and team rounds for pt?s medical status. Per hospitalist, pt might need 1-2 days pending O2 saturation, will get IV lasix. HAND WRAPPER OPERATOR entered room, pt reports she would not have transport on Thursday, 09/08 and will need Medicaid transport if discharged. If discharge is Sat, 09/09, patient will reach out to her niece for transport. Plan: Anticipating discharge home when medically cleared, possibly 09/09. Pt niece to transport vs. Medicaid Transport. CM Team will continue to follow for coordination of discharge plans. YISSEL Durham
[2025-09-08] MEDS: BENZONATATE 100 MG CAPSULE PO ×2 (13:10→22:12)
[2025-09-08 13:45] VITALS: PULSE 106; RESP 24; O2SAT 95
[2025-09-08 14:19] VITALS: BP 178/91; PULSE 106; RESP 18; TEMP 37.1; O2SAT 97
--- NOTE | 2025-09-08 15:42 | P.PN_ITS ---
Subjective Subjective Interval history: Summary: Admitted for COPD exacerbation, had Covid 1 month ago. He was in the hospital for a week, now presents with persistent coughing and wheezing. S: Persistent cough, some wheezing. O: NAD, alert and oriented. Fluent speech. Lungs are wheezing, normal rate and effort. Heart is regular, no murmur gallop or rub. Abdomen is soft, non distended. Extremities are free of edema. A/P: 1. COPD exacerbation. Improving. 2. Pneumonia. 3. Hypertension. 4. Hyperlipidemia. 5. Neuropathy. 6. Colitis, no symptoms. 7. Uvm-Hlmgrwe-Apupzcocy Diabetes. 8. Depression. PLAN: -given persistence of wheezing, dyspnea on coughing we will continue to treat for another 24 hours. -continue steroids, antibiotics, and bronchodilators. Exam Vital Signs (past 8 hours): - 09/08/25 09:15 09/08/25 09:36 09/08/25 13:45 Temperature 98.0 F Pulse Rate 74 92 H 106 H Respiratory Rate 22 22 24 Blood Pressure 178/97 H Pulse Oximetry 98 96 95 Oxygen Delivery Method Room Air Room Air Oxygen Flow Rate 0 09/08/25 14:19 Temperature 98.7 F Pulse Rate 106 H Respiratory Rate 18 Blood Pressure 178/91 H Pulse Oximetry 97 Oxygen Delivery Method Oxygen Flow Rate Fraction of Inspired Oxygen 21 SaO2/FiO2 Ratio 466 Oxygen Delivery Method Room Air Oxygen Flow Rate 0 Objective Labs 09/07/25 06:07 09/07/25 06:07 Labs: Laboratory Results - last 24 hr 09/06/25 09/07/25 09/07/25 17:31 16:00 20:07 POC Whole Bld Glucose 148 H 245 H CK-MB (CK-2) 3.7 09/08/25 09/08/25 07:36 11:34 POC Whole Bld Glucose 174 H 209 H CK-MB (CK-2) [facility] Medical History (Updated 09/06/25 @ 20:18 by Manav Oliveira MD) Insomnia CHF (congestive heart failure) Chronic pain History of CVA (cerebrovascular accident) Myocardial infarction Hepatic steatosis Drug-seeking behavior Seizures Peptic ulcer disease PTSD (post-traumatic stress disorder) Depression Easy bruisability Osteoarthritis GERD (gastroesophageal reflux disease) HLD (hyperlipidemia) HTN (hypertension) Asthma Hearing loss Prediabetes Other chronic pain Tinea pedis Pain in right hip Anxiety Coronary artery disease COPD (chronic obstructive pulmonary disease) Stroke (1999) Surgical History (Updated 08/30/25 @ 10:24 by Nahomi Hoffman MD) Hx of colonoscopy Hx of tonsillectomy History of surgery on wrist History of bilateral knee replacement Social History household members: none alcohol intake: never Assessment & Plan Time-Based Coding :: [TOTAL MINUTES] spent with patient and on the chart (including review of chart, obtaining history, exam, reviewing outside data, placing orders, documenting exam and treatment plan, and counseling patient) on [DATE].
[2025-09-08 19:00] VITALS: BP 163/75; PULSE 80; RESP 20; TEMP 36.4; O2SAT 99
[2025-09-08 20:04] VITALS: PULSE 94; RESP 22; O2SAT 95
[2025-09-08] MEDS: ATORVASTATIN 20 MG TABLET 80 MG PO (21:51)
[2025-09-08] MEDS: INSULIN GLARGINE 100 UNIT/ML 3ML PEN 10 UNIT SUBCUT (21:52)
[2025-09-09] MEDS: methylPREDNISolone succ 125 MG/2 ML VIAL 60 MG IV ×2 (05:17→11:46)
[2025-09-09] MEDS: CYCLOBENZAPRINE 10 MG TABLET PO (05:18)
[2025-09-09] MEDS: CODEINE/guaiFENesin LIQUID 5 ML UDC 10 ML PO ×3 (05:18→22:37)
[2025-09-09] MEDS: BENZONATATE 100 MG CAPSULE PO ×3 (05:18→20:21)
[2025-09-09 06:04] LABS: Blood Urea Nitrogen 24 mg/dL (7-17); Calcium 8.5 mg/dL (8.4-10.2); Carbon Dioxide 24 mmol/L (22-32); Chloride 107 mmol/L (98-107); Estimated Glomerular Filt Rate > 60 mL/min (>60); Glucose 190 mg/dL (70-99); HEMOLYSIS < 15 (0-50); Potassium 4.2 mmol/L (3.4-5.1); Sodium 139 mmol/L (137-145)
[2025-09-09 07:31] VITALS: PULSE 68; RESP 24; O2SAT 95
[2025-09-09] MEDS: ALBUTEROL/IPRATROPIUM 3 ML AMPUL INH ×3 (07:31→19:26)
[2025-09-09 08:00] VITALS: BP 164/68; PULSE 64; RESP 23; TEMP 36.3; O2SAT 98
[2025-09-09] MEDS: INSULIN LISPRO 100 UNIT/ML 3ML VIAL SUBCUT ×7 (08:22→20:24)
[2025-09-09] MEDS: SERTRALINE 50 MG TABLET PO (08:27)
[2025-09-09] MEDS: CLOPIDOGREL 75 MG TABLET PO (08:27)
[2025-09-09] MEDS: ENOXAPARIN 40 MG/0.4 ML SYRINGE SUBCUT (08:28)
[2025-09-09] MEDS: AZITHROMYCIN 500 MG in SODIUM CHLORIDE 0.9% 250 ML 250 MG IV (09:09)
[2025-09-09] MEDS: SODIUM CHLORIDE 0.9% FLUSH 10 ML IV ×2 (09:10→20:36)
[2025-09-09] MEDS: SENNOSIDES 8.6 MG TABLET 17.2 MG PO ×2 (10:08→20:22)
[2025-09-09 14:30] VITALS: PULSE 78; RESP 24; O2SAT 97
--- NOTE | 2025-09-09 16:10 | PM.PN.1 ---
Subjective Subjective Interval history: 65 yo female w/COPD, HLD, CAD, CHF, DM2, history of stroke, generalized anxiety disorder, hypertension admitted w/COPD exacerbation. Patient reports that she never got any better after her last hospitalization. She states even when she was discharged home, she felt no better than when she had been admitted. She states after returning home, she never got any better. She states she believes she was discharged prematurely. She does state she is not coughing up any sputum. During her last hospitalization she complained of coughing green sputum. She does report that her caregiver is presently in [place]. States the agency was unable to find a suitable replacement. When she is distracted and talking about family members, she notably does not wheeze at all, but when she is talking about her breathing, she has audible wheeze Exam Vital Signs (past 8 hours): - 09/09/25 14:30 Pulse Rate 78 Respiratory Rate 24 Pulse Oximetry 97 Oxygen Delivery Method Room Air Fraction of Inspired Oxygen 21 SaO2/FiO2 Ratio 466 Oxygen Delivery Method Room Air Oxygen Flow Rate 0 Narrative Exam Narrative: GEN: Middle-aged female, Alert and oriented x 3, NAD HEENT:NC, Face symmetric CHEST: Respiratory excursions symmetric, as noted, when she is distracted and discussing her family or grandchildren, she does not wheeze at all, but may be mildly dyspneic, however, when discussing her breathing and or examining her lungs, she develops a harsh expiratory wheeze bilaterally CV: RRR, no M/R/G ABD: Soft, obese, NT/ND, BT present in all 4 quadrants, body habitus limits exam EXTR: warm, well perfused, no C/C/E SKIN: warm and dry, no rash NEURO: Alert and oriented x 3, nonfocal Objective Labs 09/07/25 06:07 09/09/25 04:40 Labs: Laboratory Results - last 24 hr 09/08/25 09/08/25 09/09/25 16:49 21:37 04:40 Sodium 139 Potassium 4.2 Chloride 107 Carbon Dioxide 24 BUN 24 H Creatinine 0.69 Estimated GFR > 60 BUN/Creatinine Ratio 34.8 H Glucose 190 H POC Whole Bld Glucose 146 H 164 H Calcium 8.5 09/09/25 09/09/25 07:54 11:40 Sodium Potassium Chloride Carbon Dioxide BUN Creatinine Estimated GFR BUN/Creatinine Ratio Glucose POC Whole Bld Glucose 160 H 184 H Calcium PFSH Medical History (Updated 09/06/25 @ 20:18 by Manav Oliveira MD) Insomnia CHF (congestive heart failure) Chronic pain History of CVA (cerebrovascular accident) Myocardial infarction Hepatic steatosis Drug-seeking behavior Seizures Peptic ulcer disease PTSD (post-traumatic stress disorder) Depression Easy bruisability Osteoarthritis GERD (gastroesophageal reflux disease) HLD (hyperlipidemia) HTN (hypertension) Asthma Hearing loss Prediabetes Other chronic pain Tinea pedis Pain in right hip Anxiety Coronary artery disease COPD (chronic obstructive pulmonary disease) Stroke (1999) Surgical History (Updated 08/30/25 @ 10:24 by Nahomi Hoffman MD) Hx of colonoscopy Hx of tonsillectomy History of surgery on wrist History of bilateral knee replacement Social History household members: none alcohol intake: never Assessment & Plan Assessment & Plan narrative: 1. COPD exacerbation Patient presented with a normal white blood cell count. Chest x-ray did reveal a patchy left basilar opacity which could represent infection, aspiration, or atelectasis. O2 sats are stable in room air. I do have some concern of vocal cord dysfunction. However, given the chest x-ray findings, she would benefit from a speech and swallow evaluation. 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 She remains on Tessalon Perles. Will decrease Solu-Medrol from 60 mg IV q.6 to 40 mg Q 8 2. Uncontrolled HTN Blood pressures are mild to moderately elevated. Continues on carvedilol, will restart hydrochlorothiazide and losartan. 4. CAD Recent evaluation determined she may need PCI in near future. Last echo showed EF 55-60%. Stress test 06/16 was negative. 5. DM2 BGs have ranged from 160s-190. 6. Class 2 obesity BMI 36.3. Would benefit from weight reduction for glycemic control as well as cardiorespiratory status. However, should have cardiac clearance before initiation of any exercise regimen. Code status Full Prophy On Lovenox Dispo Remains acute inpatient status pending improvement of her respiratory symptoms. Will have PT and OT assessments Time-Based Coding :: [TOTAL MINUTES] spent with patient and on the chart (including review of chart, obtaining history, exam, reviewing outside data, placing orders, documenting exam and treatment plan, and counseling patient) on [DATE].
[2025-09-09] MEDS: LOSARTAN 50 MG TABLET 100 MG PO (16:44)
[2025-09-09] MEDS: methylPREDNISolone succ 125 MG/2 ML VIAL 40 MG IV (16:45)
[2025-09-09 20:21] VITALS: BP 133/55; PULSE 83
[2025-09-09] MEDS: ATORVASTATIN 20 MG TABLET 80 MG PO (20:22)
[2025-09-09] MEDS: INSULIN GLARGINE 100 UNIT/ML 3ML PEN 12 UNIT SUBCUT (20:23)
[2025-09-09 20:25] VITALS: BP 133/55; PULSE 84; RESP 22; TEMP 36.3; O2SAT 98
[2025-09-10] VITALS (8 sets, daily range): BP systolic 115–192; BP diastolic 91–94; PULSE 59–102; RESP 18–20; TEMP 35.8–36.4; O2SAT 95–100
[2025-09-10] MEDS: methylPREDNISolone succ 125 MG/2 ML VIAL 40 MG IV (00:04)
[2025-09-10] MEDS: BENZONATATE 100 MG CAPSULE PO ×3 (03:42→20:38)
[2025-09-10] MEDS: CODEINE/guaiFENesin LIQUID 5 ML UDC 10 ML PO ×3 (04:18→20:36)
[2025-09-10] MEDS: SERTRALINE 50 MG TABLET PO (08:22)
[2025-09-10] MEDS: LOSARTAN 50 MG TABLET 100 MG PO (08:22)
[2025-09-10] MEDS: ENOXAPARIN 40 MG/0.4 ML SYRINGE SUBCUT (08:22)
[2025-09-10] MEDS: SENNOSIDES 8.6 MG TABLET 17.2 MG PO ×2 (08:23→20:37)
[2025-09-10] MEDS: SODIUM CHLORIDE 0.9% FLUSH 10 ML IV ×3 (08:24→20:39)
[2025-09-10] MEDS: LORATADINE 10 MG TABLET PO (08:24)
[2025-09-10] MEDS: CLOPIDOGREL 75 MG TABLET PO (08:24)
[2025-09-10] MEDS: INSULIN LISPRO 100 UNIT/ML 3ML VIAL SUBCUT ×5 (08:28→17:31)
[2025-09-10] MEDS: methylPREDNISolone succ 40 MG/ML VIAL IV (08:36)
[2025-09-10] MEDS: ALBUTEROL/IPRATROPIUM 3 ML AMPUL INH ×3 (08:48→18:55)
[2025-09-10] MEDS: ONDANSETRON 4 MG/2 ML INJ IV (09:21)
--- NOTE | 2025-09-10 15:11 | CM.DPNOTE ---
DCP note GIS WEB DEVELOPER reviewed EMR per provider, wants speech/swallow eval and then dc tomorrow home with [facility]. pt aware of the plan and in agreement P: dc tomorrow home with [facility] CGs. may need medicaid transport will continue to follow as needed for DCP Coordination CHARLY James
--- NOTE | 2025-09-10 15:33 | P.PN_ITS ---
Subjective Subjective Interval history: 65 yo female w/COPD, HLD, CAD, CHF, DM2, history of stroke, generalized anxiety disorder, hypertension admitted w/COPD exacerbation. Patient reports she is about the same as yesterday. She was able to ambulate about the unit yesterday afternoon out difficulty. She reports she pulled her sock off and peeled some skin off the bottom of her foot and caused some bleeding yesterday afternoon. She put some Vaseline on her foot a Band-Aid. She was concerned due to her history of diabetes. Again today she is able to talk at length with her hollow ware maker via face time who went to her home to check on her CT. She was also able to talk to her CT without wheezing. However, as soon as she began speaking about her breathing, she developed audible wheezing and coughing. She states that she woke up 430 in the morning coughing. She notes that nursing gave her chamomile tea last night and she feels that began ?breaking everything up? in her chest. When I advised that there is some concern about aspiration on her chest x-ray, she told me she has difficulty swallowing water and describes severe burning in her chest whenever she drinks water. She then states some years ago she was intubated and upon extubation they cause damage to her neck/throat which now causes pills and water to ?get stuck?. Exam Vital Signs (past 8 hours): - 09/10/25 08:00 09/10/25 08:22 09/10/25 08:22 Temperature 96.4 F L Pulse Rate 64 Respiratory Rate 20 Blood Pressure 192/91 H 192/91 H 192/91 H Pulse Oximetry 100 Oxygen Delivery Method Oxygen Flow Rate 0 09/10/25 08:52 09/10/25 09:50 09/10/25 13:14 Temperature Pulse Rate 96 H 80 97 H Respiratory Rate 20 20 Blood Pressure 171/94 H Pulse Oximetry 97 Oxygen Delivery Method Room Air Oxygen Flow Rate Fraction of Inspired Oxygen 21 SaO2/FiO2 Ratio 466 Oxygen Delivery Method Room Air Oxygen Flow Rate 0 Narrative Exam Narrative: GEN: Middle-aged female, Alert and oriented x 3, mildly anxious, NAD HEENT:NC, Face symmetric CHEST: Respiratory excursions symmetric, harsh audible wheeze noted in her upper airway/neck, which transmits to the lungs, but she has minimal wheezing noted; she does seem to have forced expiratory wheeze which is harsh and auditory during her exam CV: RRR, no M/R/G ABD: Soft, obese, NT/ND, BT present in all 4 quadrants, body habitus limits exam EXTR: warm, well perfused, no C/C/E SKIN: warm and dry, no rash NEURO: Alert and oriented x 3, nonfocal Objective Labs 09/07/25 06:07 09/09/25 04:40 Labs: Laboratory Results - last 24 hr 09/09/25 09/09/25 09/10/25 16:31 20:10 07:51 POC Whole Bld Glucose 237 H 198 H 151 H 09/10/25 11:48 POC Whole Bld Glucose 125 H [facility] Medical History (Updated 09/06/25 @ 20:18 by Manav Oliveira MD) Insomnia CHF (congestive heart failure) Chronic pain History of CVA (cerebrovascular accident) Myocardial infarction Hepatic steatosis Drug-seeking behavior Seizures Peptic ulcer disease PTSD (post-traumatic stress disorder) Depression Easy bruisability Osteoarthritis GERD (gastroesophageal reflux disease) HLD (hyperlipidemia) HTN (hypertension) Asthma Hearing loss Prediabetes Other chronic pain Tinea pedis Pain in right hip Anxiety Coronary artery disease COPD (chronic obstructive pulmonary disease) Stroke (1999) Surgical History (Updated 08/30/25 @ 10:24 by Nahomi Hoffman MD) Hx of colonoscopy Hx of tonsillectomy History of surgery on wrist History of bilateral knee replacement Social History household members: none alcohol intake: never Assessment & Plan Assessment & Plan narrative: 1. Wheezing Patient presented with a normal white blood cell count. Chest x-ray did reveal a patchy left basilar opacity which could represent infection, aspiration, or atelectasis. O2 sats are stable in room air. I do have ongoing concern for vocal cord dysfunction. Particularly, she reported she never got better while here in the hospital last time despite aggressive treatment for COPD. She also states she is not any better today compared to admission. I do think there is a significant component of anxiety related to the fact that her caregiver is away and she has no one at home to care for her currently. It is unclear to me with regard to her COPD diagnosis whether she has had formal PFTs. She would benefit from further evaluation. Given the possibility of aspiration noted chest x-ray, I have ordered a swallow evaluation per speech therapy. Will wean from Solu- Medrol to oral prednisone today. 2. Uncontrolled HTN Patient reports her blood pressures have been chronically elevated since moving to [place]. Will increase her carvedilol from 3.125 mg twice daily to 6.5 b.i.d.. I did restart her hydrochlorothiazide and losartan yesterday. Blood pressures remain elevated. 4. CAD Recent evaluation determined she may need PCI in near future. Last echo showed EF 55-60%. Stress test 06/16 was negative. 5. DM2 BGs have ranged from the 120s to 237. Anticipate blood sugars will improve with lower dose steroids. 6. Class 2 obesity BMI 36.3. Would benefit from weight reduction for glycemic control as well as cardiorespiratory status. However, should have cardiac clearance before initiation of any exercise regimen. Code status Full Prophy On Lovenox Dispo She is independent based on infrastructure architect. I did order therapy evaluations yesterday but she was able to ambulate independently about the unit last evening. We will cancel therapy assessments. Anticipate discharge home tomorrow after swallow evaluation by speech therapy. Time-Based Coding :: [TOTAL MINUTES] spent with patient and on the chart (including review of chart, obtaining history, exam, reviewing outside data, placing orders, documenting exam and treatment plan, and counseling patient) on [DATE].
[2025-09-10] MEDS: ATORVASTATIN 20 MG TABLET 80 MG PO (20:36)
[2025-09-10] MEDS: INSULIN GLARGINE 100 UNIT/ML 3ML PEN 14 UNIT SUBCUT (20:39)
[2025-09-11] MEDS: CYCLOBENZAPRINE 10 MG TABLET PO ×3 (03:07→18:53)
[2025-09-11 07:35] VITALS: BP 173/83; PULSE 74; RESP 17; TEMP 36.6; O2SAT 97
[2025-09-11 08:40] VITALS: PULSE 100; RESP 20; O2SAT 99
[2025-09-11] MEDS: ALBUTEROL/IPRATROPIUM 3 ML AMPUL INH ×3 (08:40→18:00)
[2025-09-11] MEDS: ENOXAPARIN 40 MG/0.4 ML SYRINGE SUBCUT (08:43)
[2025-09-11] MEDS: LORATADINE 10 MG TABLET PO (08:44)
[2025-09-11] MEDS: SERTRALINE 50 MG TABLET PO (08:44)
[2025-09-11] MEDS: SENNOSIDES 8.6 MG TABLET 17.2 MG PO ×2 (08:44→21:07)
[2025-09-11] MEDS: CLOPIDOGREL 75 MG TABLET PO (08:44)
[2025-09-11] MEDS: LOSARTAN 50 MG TABLET 100 MG PO (08:45)
[2025-09-11] MEDS: BENZONATATE 100 MG CAPSULE PO (10:55)
--- NOTE | 2025-09-11 12:05 | ST.IPCSEOM ---
Addendum entered and electronically signed by Will Peters 09/11/25 12:50: MBSS scheduled for 09/12 at 14:00. RN notified. Original Note: Visit Care Team Role Provider Type Nahomi Hoffman MD Primary Care Provider Physician Specialty: Family Practice CHURCH ORGANIST Address: [address] [place] [address] Fax: Email: [email or web address] Manav Oliveira MD Emergency Provider Physician Referring Provider Specialty: Emergency Medicine Address: [address] [place] [address], [id number] Fax: Email: .au Balwinder Franklin MD Admit Provider Physician Attending Provider Specialty: Internal Medicine Address: [address] [place] [id number] Email: [email or web address] Diagnoses Pneumonia, unspecified organism (09/08/25) Past Medical History (Last Updated 08/30/25 @ 21:04 by Nahomi Hoffman MD) Anxiety (Medical) Asthma (Medical) CHF (congestive heart failure) (Medical) Chronic pain (Medical) COPD (chronic obstructive pulmonary disease) (Medical) Coronary artery disease (Medical) Per PCP note 12/02/21 Depression (Medical) Drug-seeking behavior (Social Hx) Easy bruisability (Medical) GERD (gastroesophageal reflux disease) (Medical) Hearing loss (Medical) Bilateral hearing aids Hepatic steatosis (Medical) History of CVA (cerebrovascular accident) (Medical) HLD (hyperlipidemia) (Medical) HTN (hypertension) (Medical) Insomnia (Medical) Myocardial infarction (Medical) Osteoarthritis (Medical) Other chronic pain (Medical) Pain in right hip (Medical) Peptic ulcer disease (Medical) Prediabetes (Medical) PTSD (post-traumatic stress disorder) (Medical) Per PCP note 12/02/21 Seizures (Medical) Stroke (Medical 1999) Tinea pedis (Medical) Speech-Language Pathology Swallow Evaluation CIVIL ENGINEERING PROFESSOR Clinical Swallow Evaluation Start: 09/11/25 11:36 Freq: Status: Active Protocol: Document 09/11/25 11:36 SS (Rec: 09/11/25 12:05 SS [email or web address]) Clinical Swallow Evaluation Session Time Visit Start Time 10:55 Visit Stop Time 11:20 Total Visit Minutes 25 Visit Information Visit Number [address] lAisson Barajas Reason for Referral Concern for aspiration Setting Assessment Location Acute Care Visit Type Note Type Initial evaluation Next Note Type Next Note Type Treatment Note Patient Information Identification Type Name History Per H&P: 65-year-old female with past medical history of hypertension, [id number] diabetes, hyperlipidemia, coronary disease, COPD not oxygen dependent, CVA and seizure disorder presenting with shortness of breath and coughing. Per the patient's report, the patient was diagnosed with COVID about a month ago. The patient also has seen in our ER 3 weeks ago for COPD exacerbation. The patient stated over the last few days the patient has increased shortness of breath and wheezing. The patient also had some cough with minimal sputum production. Otherwise the patient denies any fever, chills, nausea, vomiting, diarrhea, chest pain or syncope. In the emergency room, the patient was hemodynamically stable. The patient was still saturating well on room air. However the patient was still having significant shortness of breath despite having IV Solu-Medrol and DuoNebs. The patient also demonstrated possible pneumonia on chest x-ray. Labs were relatively benign however. Viral respiratory panel negative. Patient was given azithromycin and ceftriaxone. CIVIL ENGINEERING PROFESSOR consulted to complete clinical swallow evaluation to assess swallow function, determine aspiration risk, and identify need for instrumental study. Subjective Pt was sitting upright in bed upon CIVIL ENGINEERING PROFESSOR arrival. She was Observations alert and oriented and able to relay case history. Pt on room air and was observed to have shortness of breath, wheezing, and intermittent productive cough. Pt reported surgery many years ago during which she was intubated and damage was caused to her throat. Since then, she has been experiencing dysphagia symptoms. Pt reported that foods, liquids, and pills often get stuck in her throat and upper chest. She described this sensation as pressure that makes her chest feel as if it's going to explode. She also reported liquids tend to come back up if she drinks too quickly. Additionally, pt reported she chokes of liquids and solids a few times a week. Pt has hx of GERD, but is not currently on medication to manage. Per chart review and pt report, multiple hospitalizations over the past year for COPD exacerbation and pneumonia. Reported by Patient/Caregiver Pain/Discomfort Yes Location Neck,Chest Other Symptoms Choking,Difficulty swallowing liquids,Difficulty swallowing pills,Difficulty swallowing solids,Food gets stuck,History of aspiration or pneumonia Comment Solids: Regular (self-selects softer items) Liquids: Thin Medications: Whole with liquid wash Functional Oral Intake Scale (FOIS): FOIS level 6 FOIS [place]: Level 1 = no oral intake, Level 2 = tube dependent with minimal/inconsistent oral intake, Level 3 = tube supplements with consistent oral intake, Level 4 = total oral intake of a single consistency, Level 5 = total oral intake of multiple consistencies requiring special preparation, Level 6 = total oral intake with no special preparation, but must avoid specific foods or liquid items, Level 7 = total oral intake with no restrictions Current Diet Regular (IDDSI 7) Baseline Feeding Independent in self-feeding Method The IDDSI Framework Protocol: IDDSI.1 Objective Assessment Mental Status Alert,Responsive,Cooperative Oral Integrity WFL Dentition Missing teeth,Inadequate dentition for mastication Lip Function Mild impairment Observation of Lips Left sided weakness/Drooping at Rest Pucker Left sided weakness/drooping Lip Retraction Left sided weakness/Drooping Alternating Pucker/ Reduced range of motion Lip Retraction Tongue Function Mild impairment Observations of Deviates to the right Tongue at Rest Tongue Protrusion Deviates to the right,Reduced strength Tongue Retraction Reduced strength Tongue Deviates to the right,Reduced strength Lateralization Jaw Function Within normal limits Hard/Soft Palate Within normal limits Function Comment Mildly reduced strength across labial, lingual, buccal, and jaw movement. Pt reports no change and impairments have persisted since previous CVA. Food and Liquid Trials Position During Upright (90 degrees) Assessment Liquids Trialed Thin (IDDSI 0) Solid Trials Purred (IDDSI 4),Soft & Bite-sized (IDDSI 6),Regular ( IDDSI 7) Administration Type Cup single sip,Cup consecutive sips,Straw,Self-feeding Oral Impairment Mildly impaired Oral Phase Comments Pt observed across trials of thin liquids (>3 oz water) via tsp, cup, and straw, puree via tsp (apple sauce), and soft/bite sized via tsp (diced peaches), and regular. Pt fed self independently. Pt exhibited adequate bolus retrieval without anterior loss. Pt exhibited mildly prolonged bolus manipulation, though this was judged to be functional. Pt exhibited reduced oral clearance resulting in mild oral residue with left -sided buccal pocketing given lingual weakness, though was able to clear independently with liquid wash. Pharyngeal Moderately impaired Impairment Pharyngeal Phase Clinical signs/symptoms of possible pharyngeal Comments dysphagia include globus sensation across all trials of solids and liquids. Pt reported intake sticking in her throat and upper chest (pointing ot sternal notch). She did not demonstrate overt s/sx of aspiration, though silent aspiration cannot be ruled out without instrumental swallow study. Pt demonstrated increased sensation of intake sticking in her throat and chest with larger volumes. Fatigue/Endurance Endurance WNL [place] Swallow Yes Protocol Results The [place] Swallow Protocol is an evidence-based swallow screening protocol to determine aspiration risk. This tool has been validated across a number of different patient diagnoses and in a number of clinical settings. This is the only screening instrument that both identifies aspiration risk and, when passed, is able to recommend specific oral diets without the need for further instrumental dysphagia testing. Based upon research by Drs. Manav Choi and Sue Patrick, this is a reliable and validated swallow screening protocol. Cognitive Screen: PASS Results with 3oz water test: FAIL (globus sensation) Results with cracker: FAIL (globus sensation) The IDDSI Framework Protocol: IDDSI.1 Findings Swallowing Function Pharyngoesophageal phase dysphagia Severity of Swallow Mildly-moderately impaired Impairment Contributing Factors Reduced oral strength/coordination/sensation, to Swallow Mastication inefficiency,Impaired airway protection, Impairment Excessive pharyngeal residue Prognosis Fair Based on Cognitive status,Age Comment Pt presents with mild oral phase dysphagia characterized by difficulty with bolus manipulation and clearance secondary to left-sided labial/lingual weakness. These are pt?s baseline symptoms with no recent change. Additionally, pt presents with concern for possible pharyngeal and esophageal phase dysphagia given globus sensation, choking with liquids wand solids, premature fullness, and tightness/pressure in throat and chest with PO intake. It is difficult to differentiate current baseline productive cough for overt s/sx of aspiration at this time. Based on pt?s fair oral health status and intact immune function, pt remains at a moderate risk of pulmonary compromise associated with aspiration at this time. Modified Barium Swallow Study (MBSS) is indicated to thoroughly assess pt?s swallow pathophysiology in order to determine the safest diet, effective compensatory strategies, and potential rehabilitative exercises for therapy. Pt verbalized understanding/agreement with MBSS. MD notified to place MBSS order. Recommend safest/most efficient least restrictive diet of Easy to Chew solids (IDDSI 7) and thin liquids ( IDDSI 0). Educated pt re: recommended safe swallow precautions to reduce the risk of aspiration, including small bites/ sips, slow rate, alternating liquids and solids, upright positioning during PO intake, limiting distractions, and avoiding talking while eating. Pt will benefit from frequent oral care, including after all meals, to minimize colonization of oral pathogens that can increase pt's risk of developing aspiration pneumonia if aspirated. Pt verbalized understanding. Handout with pt's individualized safe swallow strategies left in pt's room on hospital board; pt verbalized understanding/agreement with diet recommendation and strategies pending MBSS. MD notified to change diet. Impact on Safety and Risk for aspiration Functioning Recommendations Instrumental Yes Assessment Swallowing Treatment Yes Frequency Daily Duration During hospital admission Recommended Solids Easy to Chew (IDDSI 7) Recommended Liquids Thin (IDDSI 0) Safety Precautions/ 1 to 1 distant supervision,Reduce distractions,Remain Swallowing upright (90 degrees) during all oral intake,Upright Recommendations position at least 30 minutes after meals,Small bites and sips when eating,Slow rate; swallow between bites, No straw,Multiple swallows,Alternate liquids and solids Medication Whole in Carrier Recommendations Discharge [facility] facility Recommendations Education Patient/Caregiver Described results of evaluation,Patient expressed Education understanding of evaluation,Patient expressed agreement with goals & treatment plans Goals Short-term Goals 1. Patient will complete MBSS to further evaluate swallowing pathophysiology and determine next steps in POC. Long-term Goals Patient will safely tolerate least restrictive diet consistency to allow for safe consumption of daily meals without s/sx of aspiration.
[2025-09-11] MEDS: INSULIN LISPRO 100 UNIT/ML 3ML VIAL SUBCUT ×4 (12:30→17:05)
[2025-09-11 13:17] VITALS: PULSE 63; RESP 20
[2025-09-11] MEDS: guaiFENesin Solution 100 MG/5 ML UDC 200 MG PO (14:13)
--- NOTE | 2025-09-11 14:46 | CM.DPC ---
DCP Home Planning: Per MD, pt to have swallow eval today and then possible discharge tomorrow Tues pending progress. Per ST eval today, recommending some modified intake recommendations and Modified Barium Swallow tomorrow Tues as pt is not clearing her intake. SW met bedside with pt and explained role again and pt confirms she worked with ST today and is aware of MBSS for tomorrow and pt appreciative as she states she has difficulty with feelings of choking or liquid/food coming back up. Otherwise pt is feeling improved. Inquired if pt has a ride home if discharges tomorrow and pt states she will begin making phone calls to see if any family or friends can transport at d/c and also pt's DAQUAN CM called on the phone to check in and aware of possible discharge home tomorrow. If pt cannot find a ride, will need Medicaid Transport form completed and sent in for ride to be scheduled. CHARLY Feldman
--- NOTE | 2025-09-11 15:26 | PC.NURSE ---
Patient has wheezes to all lobes when auscultated. She was just up and showered, she is moving with fww with sba. Asking for oxycodone every 4 hours and helpful with pain and discomfort. BS in the 160s at lunch, insulin given. Morning blood sugar 69, juice given.. Patient is resting now.
--- NOTE | 2025-09-11 15:43 | PM.PN.1 ---
Subjective Subjective Interval history: S: Ongoing wheezing and cough. On room air. O: NAD, alert and oriented. Fluent speech. Lungs are diffusely wheezy, normal rate and effort. Heart is regular, no murmur gallop or rub. Abdomen is soft, non distended. Extremities are free of edema. A/P: 1. COPD exacerbation. Improving. 2. Pneumonia. 3. Hypertension. 4. Hyperlipidemia. 5. Neuropathy. 6. Colitis, no symptoms. 7. Dgt-Yokqvns-Weqsweqgo Diabetes. 8. Depression. PLAN: -continue current medications including bronchodilators and steroids. -speech to perform bedside evaluation, they have recommended a modified barium swallow to rule out aspiration. The patient does note some sensation of choking at times or things getting stuck in the upper part of her throat when eating. -MBS ordered for September 13. Exam Vital Signs (past 8 hours): - 09/12/25 08:00 09/12/25 08:49 09/12/25 13:31 Temperature 97.6 F Pulse Rate 79 68 92 H Respiratory Rate 16 20 20 Blood Pressure 147/81 H Pulse Oximetry 100 98 98 Oxygen Flow Rate 0 Fraction of Inspired Oxygen 21 Fraction of Inspired Oxygen 21 SaO2/FiO2 Ratio 466 Oxygen Delivery Method Room Air Oxygen Flow Rate 0 Objective Labs 09/07/25 06:07 09/09/25 04:40 Labs: Laboratory Results - last 24 hr 09/11/25 09/11/25 09/12/25 16:59 20:58 07:26 POC Whole Bld Glucose 183 H 134 H 87 09/12/25 09/12/25 11:54 14:16 POC Whole Bld Glucose 108 H 209 H D PFSH Medical History Insomnia CHF (congestive heart failure) Chronic pain History of CVA (cerebrovascular accident) Myocardial infarction Hepatic steatosis Drug-seeking behavior Seizures Peptic ulcer disease PTSD (post-traumatic stress disorder) Depression Easy bruisability Osteoarthritis GERD (gastroesophageal reflux disease) HLD (hyperlipidemia) HTN (hypertension) Asthma Hearing loss Prediabetes Other chronic pain Tinea pedis Pain in right hip Anxiety Coronary artery disease COPD (chronic obstructive pulmonary disease) Stroke (1999) Surgical History Hx of colonoscopy Hx of tonsillectomy History of surgery on wrist History of bilateral knee replacement Social History household members: none alcohol intake: never Assessment & Plan Time-Based Coding :: [TOTAL MINUTES] spent with patient and on the chart (including review of chart, obtaining history, exam, reviewing outside data, placing orders, documenting exam and treatment plan, and counseling patient) on [DATE].
[2025-09-11 18:00] VITALS: PULSE 92; RESP 20; O2SAT 98
[2025-09-11 20:00] VITALS: BP 165/69; PULSE 89; RESP 20; TEMP 37; O2SAT 97
[2025-09-11] MEDS: INSULIN GLARGINE 100 UNIT/ML 3ML PEN 10 UNIT SUBCUT (21:03)
[2025-09-11] MEDS: ATORVASTATIN 20 MG TABLET 80 MG PO (21:05)
[2025-09-11] MEDS: CODEINE/guaiFENesin LIQUID 5 ML UDC 10 ML PO (21:11)
[2025-09-12] VITALS (10 sets, daily range): BP systolic 133–155; BP diastolic 59–121; PULSE 68–98; RESP 16–20; TEMP 36.3–36.6; O2SAT 96–100
[2025-09-12] MEDS: CODEINE/guaiFENesin LIQUID 5 ML UDC 10 ML PO (02:52)
[2025-09-12] MEDS: CYCLOBENZAPRINE 10 MG TABLET PO (02:53)
[2025-09-12] MEDS: SODIUM CHLORIDE 0.9% FLUSH 10 ML IV (06:17)
[2025-09-12] MEDS: SERTRALINE 50 MG TABLET PO (08:35)
[2025-09-12] MEDS: LORATADINE 10 MG TABLET PO (08:35)
[2025-09-12] MEDS: ENOXAPARIN 40 MG/0.4 ML SYRINGE SUBCUT (08:35)
[2025-09-12] MEDS: INSULIN LISPRO 100 UNIT/ML 3ML VIAL SUBCUT ×2 (08:35→12:15)
[2025-09-12] MEDS: ACETAMINOPHEN 325 MG TABLET 650 MG PO (08:35)
[2025-09-12] MEDS: LOSARTAN 50 MG TABLET 100 MG PO (08:36)
[2025-09-12] MEDS: CLOPIDOGREL 75 MG TABLET PO (08:36)
[2025-09-12] MEDS: SENNOSIDES 8.6 MG TABLET 17.2 MG PO (08:36)
[2025-09-12] MEDS: ALBUTEROL/IPRATROPIUM 3 ML AMPUL INH ×2 (08:47→13:29)
--- NOTE | 2025-09-12 09:11 | PC.NURSE ---
Patient with wheezes to all bases in lungs. Up with sba or independent. Denies pain or any coughing at this time. Patient is on room air. BS 87, 2u of insulin given.
[2025-09-12] MEDS: guaiFENesin Solution 100 MG/5 ML UDC 200 MG PO (10:33)
--- NOTE | 2025-09-12 13:47 | PM.PN.1 ---
Exam Vital Signs (past 8 hours): - 09/12/25 08:00 09/12/25 08:49 09/12/25 13:31 Temperature 97.6 F Pulse Rate 79 68 92 H Respiratory Rate 16 20 20 Blood Pressure 147/81 H Pulse Oximetry 100 98 98 Oxygen Flow Rate 0 Fraction of Inspired Oxygen 21 Fraction of Inspired Oxygen 21 SaO2/FiO2 Ratio 466 Oxygen Delivery Method Room Air Oxygen Flow Rate 0 Objective Labs 09/07/25 06:07 09/09/25 04:40 Labs: Laboratory Results - last 24 hr 09/11/25 09/11/25 09/12/25 16:59 20:58 07:26 POC Whole Bld Glucose 183 H 134 H 87 09/12/25 11:54 POC Whole Bld Glucose 108 H PFS Medical History (Updated 09/06/25 @ 20:18 by Manav Oliveira MD) Insomnia CHF (congestive heart failure) Chronic pain History of CVA (cerebrovascular accident) Myocardial infarction Hepatic steatosis Drug-seeking behavior Seizures Peptic ulcer disease PTSD (post-traumatic stress disorder) Depression Easy bruisability Osteoarthritis GERD (gastroesophageal reflux disease) HLD (hyperlipidemia) HTN (hypertension) Asthma Hearing loss Prediabetes Other chronic pain Tinea pedis Pain in right hip Anxiety Coronary artery disease COPD (chronic obstructive pulmonary disease) Stroke (1999) Surgical History (Updated 08/30/25 @ 10:24 by Nahomi Hoffman MD) Hx of colonoscopy Hx of tonsillectomy History of surgery on wrist History of bilateral knee replacement Social History household members: none alcohol intake: never Assessment & Plan Time-Based Coding :: [TOTAL MINUTES] spent with patient and on the chart (including review of chart, obtaining history, exam, reviewing outside data, placing orders, documenting exam and treatment plan, and counseling patient) on [DATE].
--- NOTE | 2025-09-12 14:02 | DI.CT.S_ITS ---
PROCEDURE: CT HEAD/BRAIN WO CON INDICATIONS: CVA TECHNIQUE: Noncontrast 4.5 mm thick angled axial sections acquired from the foramen magnum to the vertex, with coronal and sagittal reformats. For radiation dose reduction, the following was used: automated exposure control, adjustment of mA and/or kV according to patient size. COMPARISON: [facility], CT, CT HEAD/BRAIN WO CON, 10/13/2024, 14:11. FINDINGS: Image quality: Diagnostic. CSF spaces: Basal cisterns are patent. No extra-axial fluid collections. Ventricles are normal in size and shape. Brain: No midline shift. No intracranial mass effect or hemorrhage. Camacho- white matter interface is normal. Moderate white matter chronic ischemic change noted . Skull and face: Calvarium and visualized facial bones are intact, without suspicious lesions. Sinuses: Visualized sinuses and mastoids are clear. IMPRESSION: No acute intracranial pathology. Moderate white matter chronic ischemic change, similar to prior Approved by: Piyush Rivera M.D. on 09/12/2025 at 14:27
--- NOTE | 2025-09-12 14:02 | DI.CT.S_ITS ---
PROCEDURE: CT ANGIO HEAD AND NECK INDICATIONS: CVA TECHNIQUE: After the administration of intravenous contrast, 1 mm thick sections acquired from the aortic arch through the [place] of [place]. MIP reformats of the arterial vasculature were utilized. For radiation dose reduction, the following was used: automated exposure control, adjustment of mA and/or kV according to patient size. COMPARISON: None. FINDINGS: Image quality: Diagnostic. Cerebral CT Angiogram: Internal carotid arteries: No acute findings. Intracranial ICA are patent with no significant stenosis. No occlusion. No aneurysm. Anterior cerebral arteries: Unremarkable. No significant stenosis. No occlusion. No aneurysm. Middle cerebral arteries: Unremarkable. No significant stenosis. No occlusion. No aneurysm. Posterior cerebral arteries: Unremarkable. No significant stenosis. No occlusion. No aneurysm. Basilar artery: Unremarkable. No significant stenosis. No occlusion. No aneurysm. Vertebral arteries: Unremarkable as visualized. Dural venous sinuses: Unremarkable given phase of enhancement. Other: Arterial phase appearance of the brain parenchyma is unremarkable. Neck CT Angiogram: Internal carotid arteries: Calcified atherosclerotic plaque in both proximal ICA without hemodynamically significant stenosis utilizing NASCET criteria. Common carotid arteries: Unremarkable. No significant stenosis. No dissection or occlusion. External carotid arteries: Unremarkable. No occlusion. Vertebral arteries: Unremarkable. No significant stenosis. No dissection or occlusion. Aortic Arch and Mediastinum: Partially visualized aortic arch unremarkable without evidence of aneurysm. Origins of the great vessels unremarkable. Other: Arterial phase soft tissues of the neck and chest are unremarkable. Degenerative disc disease and arthropathy in the mid cervical spine results in at least moderate central stenosis at C4-5, C5-6 and C6-7 IMPRESSION: Mild atherosclerotic vascular calcification without hemodynamically significant stenosis throughout the exam. Degenerative disc disease and arthropathy in the mid cervical spine results in moderate central stenosis C4-5, C5-6 and C6-7 Approved by: Piyush Rivera M.D. on 09/12/2025 at 14:37
--- NOTE | 2025-09-12 14:20 | SLP.IPNOTE ---
MBSS canceled due to change in pt status. [employer] to follow-up tomorrow 09/13 to re-assess swallowing function and re-schedule MBSS as deemed medically appropriate.
--- NOTE | 2025-09-12 14:47 | PC.NURSE ---
Imaging called at 1400 when patient was down at her modified barrium swallow. Tech said she was complaining of r.sided numbess, and she was taken to ct. Back up to room at around 1420. NIH stroke scale 16, patient smile asymmetrical with r.sided facial droop. Vision to r.eye with nothing, patient states that her eye was black. L.eye vision to r.inside of eye not clear but seeing to left side. R.arm unable to lift up at all. R.leg with slight movement but could not lift extremity up. She has feeling to l.side of face, nose, and chin and left arm and leg. No real sensation to l.side. BP 140/80s, at 1420. TNK given at 309pm, patient just checked on and she is unable to lift her r.arm or r.leg. BP up to to 150s/121. Patient thinks that it is September, [facility] was not [facility]. She is also saying that she is 64 years old and recently had a birthday on [birth year]. Patient at rest now.
[2025-09-12] MEDS: TENECTEPLASE 50 MG VIAL 22 MG IV (15:08)
--- NOTE | 2025-09-12 15:34 | PM.DS.1 ---
History of Present Illness History of Present Illness Chief complaint: COPD Exacerbation Narrative: From H&P: 65-year-old female with past medical history of hypertension, aao-axelasf-iswjmkbmr diabetes, hyperlipidemia, coronary disease, COPD not oxygen dependent, CVA and seizure disorder presenting with shortness of breath and coughing. Per the patient's report, the patient was diagnosed with COVID about a month ago. The patient also has seen in our ER 3 weeks ago for COPD exacerbation. The patient stated over the last few days the patient has increased shortness of breath and wheezing. The patient also had some cough with minimal sputum production. Otherwise the patient denies any fever, chills, nausea, vomiting, diarrhea, chest pain or syncope. In the emergency room, the patient was hemodynamically stable. The patient was still saturating well on room air. However the patient was still having significant shortness of breath despite having IV Solu-Medrol and DuoNebs. The patient also demonstrated possible pneumonia on chest x-ray. Labs were relatively benign however. Viral respiratory panel negative. Patient was given azithromycin and ceftriaxone. Discharge Providers Provider Date of admission: 09/08/25 14:36 Discharge Date: 09/12/25 Primary care physician: Nahomi Hoffman MD Consults: 09/09/25 16:18 Consult to Speech Therapy Evaluate & Treat Comment: Physician Instructions: Evaluate and treat Discharge provider: Rolly Plata MD Summary Hospital Course Discharge Diagnosis: 1. COPD exacerbation. Improving. 2. Pneumonia. 3. Hypertension. 4. Hyperlipidemia. 5. Neuropathy. 6. Colitis, no symptoms. 7. Csj-Eacctva-Plyuuxjje Diabetes. 8. Depression. 9. Acute CVA with right hemiparesis and visual disturbances in the afternoon of September 12. Thrombolysis with the assistance of stroke team. Air lift transferred to [facility] for further care. Hospital Course: She was admitted with recurrent wheezing and cough. She was had this issue really since having COVID about a month ago. She was being treated like a COPD exacerbation with minimal improvement. On September 12, she was scheduled to undergo a modified barium swallow to evaluate for possible aspiration. At 2:00 p.m., while being transferred down for her study she developed acute right hemiparesis. She was adopted facial droop. A stat CT of the head and CTA were obtained and her MBS was canceled. She returned to the perez directly from the CT scanner and code stroke was activated with [facility] neurology. Images were pushed and reviewed, CT brain and CTA were negative for stroke and LV 0. The patient had initial NIH score of 16, this is scored with the nurse at the bedside. Clinically she had a dense right hemiparesis of the arm leg and facial droop. She also had inability to look past midline to the right with both eyes. She had a right field cut on the left eye in both the upper and lower quadrant as well as a complete blackout of the right eye. She also had decreased sensation to touch in the right face right arm and right leg. Her blood pressure was acceptable, she was screened and underwent a secondary neurologic exam by video monitor with the stroke team. Contraindications were reviewed. Blood pressure was acceptable for thrombolytics. The patient consented verbally to thrombolytics with the stroke team. TNK was ordered and administered at 3:05 p.m.. Transfer arrangements were made, ACLS ground was not available for 2-1/2 hours after TNK administration. Air lift was activated. Status at Discharge Cognitive/behavioral status at discharge: oriented Functional status at discharge: bed bound Overall status at discharge: patient is not back to baseline Time Spent with Patient Time spent: Greater than 30 minutes Exam Vital Signs (past 8 hours): - 09/12/25 08:00 09/12/25 08:49 09/12/25 13:31 Temperature 97.6 F Pulse Rate 79 68 92 H Respiratory Rate 16 20 20 Blood Pressure 147/81 H Pulse Oximetry 100 98 98 Oxygen Flow Rate 0 Fraction of Inspired Oxygen 21 Fraction of Inspired Oxygen 21 SaO2/FiO2 Ratio 466 Oxygen Delivery Method Room Air Oxygen Flow Rate 0 Narrative Exam Narrative: NAD, alert and oriented. Fluent speech. Lungs are clear, normal rate and effort. Heart is regular, no murmur gallop or rub. Abdomen is soft, non distended. Extremities are free of edema. Dense paresis of the right arm and right leg, right facial droop and slurred speech. Gaze paresis can not cross midline to the right. A right eye complete blackout, left eye has field defect to the right upper and right lower quadrants. Objective Imaging CTA: CTH: : Radiologist's impression: CTH: Normal. CTA Head and neck: No LVO. Labs 09/07/25 06:07 09/09/25 04:40 Labs: Laboratory Results - last 24 hr 09/11/25 09/11/25 09/12/25 16:59 20:58 07:26 POC Whole Bld Glucose 183 H 134 H 87 09/12/25 09/12/25 11:54 14:16 POC Whole Bld Glucose [address] [facility] Medical History Insomnia CHF (congestive heart failure) Chronic pain History of CVA (cerebrovascular accident) Myocardial infarction Hepatic steatosis Drug-seeking behavior Seizures Peptic ulcer disease PTSD (post-traumatic stress disorder) Depression Easy bruisability Osteoarthritis GERD (gastroesophageal reflux disease) HLD (hyperlipidemia) HTN (hypertension) Asthma Hearing loss Prediabetes Other chronic pain Tinea pedis Pain in right hip Anxiety Coronary artery disease COPD (chronic obstructive pulmonary disease) Stroke (1999) Surgical History Hx of colonoscopy Hx of tonsillectomy History of surgery on wrist History of bilateral knee replacement Social History household members: none alcohol intake: never Discharge Assessment & Plan Assessment and Plan Assessment: 1. Acute stroke with right hemiparesis and dysarthria and visual disturbance while in the hospital on September 12. Status post thrombolytics at 3:05 p.m. code stroke conducted with [facility] tele stroke. Video encounter also performed. Plan of Treatment: Transfer to [facility] for further care, airlift activated. Discharge Plan Discharge Plan Patient Disposition: [facility] Other facility: [facility] [place] Under care of provider: Neuro Team . Discharge Health Status Multidrug resistant organism: No MDRO Diet/Activity/Treatments Diet: Carb-consistent/Diabetic Discharge Data Primary Care Provider: Nahomi Hoffman
--- NOTE | 2025-09-12 15:47 | PC.NURSE ---
Patient is alert and oriented x3, she knows what is going on, slight forgetfulness. NIH scale remains a 16. Blood pressure is down to 151/51
[2025-09-12] MEDS: MORPHINE 4 MG/ML INJ 2 MG IV (16:07)
--- NOTE | 2025-09-12 16:58 | PC.NURSE ---
Patient left via air lift to [facility]. Report given to RN.
== END 2025-09-12 16:15 | disposition short-term general hospital (02) | DRG 190 ==
LOC: ED 19:58 → AC 20:13
PROVIDERS: Family Medicine; Admitting Provider Internal Medicine; Emergency Provider Emergency Medicine; PCP Family Medicine; Referring Provider Emergency Medicine; Visit Provider Internal Medicine
DX: J44.1 Chronic obstructive pulmonary disease with (acute) exacerbation (principal); I63.9 Cerebral infarction, unspecified; J18.9 Pneumonia, unspecified organism; G81.91 Hemiplegia, unspecified affecting right dominant side; J44.0 Chronic obstructive pulmonary disease with (acute) lower respiratory infection; I10 Essential (primary) hypertension; E78.5 Hyperlipidemia, unspecified; E11.40 Type 2 diabetes mellitus with diabetic neuropathy, unspecified; F32.A Depression, unspecified; I25.10 Atherosclerotic heart disease of native coronary artery without angina pectoris; E66.812 Obesity, class 2; H53.9 Unspecified visual disturbance; R29.810 Facial weakness; R29.716 NIHSS score 16; Z79.84 Long term (current) use of oral hypoglycemic drugs; Z86.73 Personal history of transient ischemic attack (TIA), and cerebral infarction without residual deficits; Z86.16 Personal history of COVID-19; Z68.36 Body mass index [BMI] 36.0-36.9, adult
CPT/HCPCS: 36415; 70450; 70496; 70498; 71045; 80048; 80053; 81003; 81015; 82553; 82962; 83605; 83690; 83735; 83880; 84484; 85025; 87040; 87637; 92610; 93005; 94640; 94760; 94762; 96365; 96367; 96368; 96375; 99284; 99291; G0378; J3101; J0696; J1650; J1815; J2272; J2405; J2919; J7050; J7060; Q9967

== ENCOUNTER 2025-10-24 15:17 | Emergency (ER) | payer MEDICARE, MEDICAID, SELFPAY ==
[2025-09-06 20:45] VITALS: BMI 36.2
[2025-10-24] VITALS (11 sets, daily range): BP systolic 120–162; BP diastolic 70–77; PULSE 80–98; RESP 20–30; TEMP 37.1; O2SAT 97–100; BMI 36.2
--- NOTE | 2025-10-24 15:29 | DI.RAD.S_ITS ---
PROCEDURE: XR CHEST 1V INDICATIONS: SOB; cough; CP TECHNIQUE: One view of the chest was acquired. COMPARISON: [facility], CT, CT ANGIO CHEST PE, 07/05/2025, 20:38. [facility], CR, XR CHEST 1V, 09/06/2025, 17:41. [facility], CR, XR CHEST 1V, 08/16/2025, 20:59. FINDINGS: Surgical changes and devices: None. Lungs and pleura: Lungs are clear. No pleural effusions or pneumothorax. Mediastinum: Mediastinal contours appear normal. Heart size is normal. Bones and chest wall: No suspicious bony lesions. Overlying soft tissues appear unremarkable. IMPRESSION: No acute cardiopulmonary abnormality is seen. Approved by: Robert Daugherty M.D. on 10/24/2025 at 16:18
--- NOTE | 2025-10-24 15:30 | ED.URI ---
HPI - URI/Sore Throat <Danya Rothman PA-C - Last Filed: 10/24/25 15:53> General Chief Complaint: Upper Respiratory Symptoms Stated Complaint: Cough x 5 days pc ref Time Seen by Provider: 10/24/25 15:21 Source: patient Mode of arrival: Ambulatory History of Present Illness HPI Narrative: Ms. Stafford is a pleasant 65-year-old female with a past medical history of COPD, recent CVA discharged from 1 month ago, zev-[id number]-ldgohdogy T2 DM, chronic pain, CAD, HTN, HLD, CHF who presents to the emergency department with her caregiver for progressive productive cough x5 days. Patient states that she has been having a productive cough with green sputum for the last 5 days, wheezing, shortness of breath, chest pain, shoulder pain, hip pain, sore throat, sneezing, runny nose. She has not had a fever but she has been experiencing chills. Reports having some diarrhea last week but this is resolved, she denies nausea or vomiting. She is not having dysuria but she is having urinary frequency. She no longer smokes cigarettes. Related Data Home Medications ?Medication ?Instructions ?Recorded ?Confirmed acetaminophen 500 mg tablet 1,000 mg PO Q12H 11/26/24 09/19/25 albuterol sulfate 90 mcg/actuation 2 puff inhalation Q4H PRN Wheezing 11/26/24 10/02/25 aerosol inhaler cetirizine 10 mg tablet 10 mg PO DAILY 08/30/25 10/02/25 amlodipine 5 mg tablet 5 mg PO DAILY 09/19/25 10/02/25 cilostazol 50 mg tablet 100 mg PO BID 10/02/25 10/02/25 Previous Rx's ?Medication ?Instructions ?Recorded benzonatate 100 mg capsule 100 mg PO TID PRN Cough #60 caps 08/22/25 atorvastatin 40 mg tablet 80 mg (2 x 40 mg) PO BEDTIME #90 08/30/25 tabs carvedilol 3.125 mg tablet 3.125 mg PO BID #180 tabs 08/30/25 clopidogrel 75 mg tablet 75 mg PO DAILY #90 tabs 08/30/25 cyclobenzaprine 10 mg tablet 10 mg PO TID PRN muscle spasm #90 08/30/25 tabs hydrochlorothiazide 25 mg tablet 25 mg PO DAILY #90 tabs 08/30/25 hydroxyzine HCl 25 mg tablet 25 mg PO TID PRN Anxiety #60 tabs 08/30/25 ipratropium bromide 21 mcg (0.03 2 spray intranasal BID #30 mL 08/30/25 %) nasal spray lidocaine 5 % topical patch 1 patch topical DAILY PRN Pain #30 08/30/25 ea losartan 100 mg tablet 100 mg PO QAM #90 tabs 08/30/25 metformin 500 mg tablet,extended 500 mg PO DAILY #90 tabs 08/30/25 release 24 hr sertraline 50 mg tablet 50 mg PO QAM #90 tabs 08/30/25 trazodone 50 mg tablet 50 mg PO ONCE PM #90 tabs 08/30/25 fluticasone furoate 200 1 inh inhalation DAILY #60 ea 09/25/25 mcg-vilanterol 25 mcg/dose inhalation powder (Breo Ellipta) blood sugar diagnostic (True #100 ea 10/02/25 Metrix Glucose Test Strip) glucose test strips #400 ea 10/02/25 oxycodone 5 mg tablet 5 mg PO DAILY PRN pain #30 tabs 10/02/25 prednisone 20 mg tablet 60 mg (3 x 20 mg) PO DAILY #16 tabs 10/24/25 Allergies Allergy/AdvReac Type Severity Reaction Status Date / Time aspirin (ASPIRIN) Allergy Severe Throat Verified 09/06/25 17:42 closes, eye itching, difficulty breathing buprenorphine (From Suboxone) Allergy Severe Throat Verified 09/06/25 17:42 closing, vomiting ibuprofen (IBUPROFEN) Allergy Severe Throat Verified 09/06/25 17:42 closes, eye itching, difficulty breathing ketorolac (From TORADOL) Allergy Severe Throat Verified 09/06/25 17:42 closes, eye itching, difficulty breathing methadone Allergy Severe Hard time Verified 09/06/25 17:42 breathing, my vital signs were dropping naloxone (From Suboxone) Allergy Severe Throat Verified 09/06/25 17:42 closing, vomiting NSAIDS (Non-Steroidal Allergy Severe Throat Verified 09/06/25 17:42 Anti-Inflamma closes, eye itching, difficulty breathing tramadol (TRAMADOL) Allergy Severe Rash, my Verified 09/06/25 17:42 throat was closing duloxetine Allergy Rash Verified 09/06/25 17:42 gabapentin AdvReac Gastrointestinal Verified 09/06/25 17:42 Upset Review of Systems <Danya Rothman PA-C - Last Filed: 10/24/25 15:53> Review of Systems ROS Unobtainable: All systems reviewed & are unremarkable except as noted in HPI and below Patient History <Danya Rothman PA-C - Last Filed: 10/24/25 15:53> Medical History DM2 (diabetes mellitus, type 2) Chronic narcotic dependence Insomnia CHF (congestive heart failure) Chronic pain History of CVA (cerebrovascular accident) Myocardial infarction Hepatic steatosis Drug-seeking behavior Seizures Peptic ulcer disease PTSD (post-traumatic stress disorder) Depression Easy bruisability Osteoarthritis GERD (gastroesophageal reflux disease) HLD (hyperlipidemia) HTN (hypertension) Asthma Hearing loss Prediabetes Other chronic pain Tinea pedis Pain in right hip Anxiety Coronary artery disease COPD (chronic obstructive pulmonary disease) Stroke (1999) Surgical History Hx of colonoscopy Hx of tonsillectomy History of surgery on wrist History of bilateral knee replacement Social History household members: none alcohol intake: never tobacco type: cigarettes alcohol intake frequency: holidays/special occasions only Exam <Danya Rothman PA-C - Last Filed: 10/24/25 15:53> Narrative Exam Narrative: GENERAL: 65 year old patient appears stated age. Obese patient, in no acute distress but is breathing with increased rate. HEAD: Atraumatic. Normocephalic. EYES: No scleral icterus. No injection or drainage. ENT: Uvula midline, posterior oropharynx patent. NECK: Trachea midline. Cervical ROM intact. CARDIOVASCULAR: Regular rate and rhythm. RESPIRATORY: ?Increased work of breathing with increased respiratory rate, 26 breaths per minute. Patient has extensive expiratory wheezing throughout the lung neri. GASTROINTESTINAL: Abdomen soft, non-tender, nondistended. EXTREMITIES: No LE edema. NEURO: Alert and oriented, answers all questions and provides her own history. Ambulatory. SKIN: No rash or erythema of visible areas. Initial Vital Signs Initial Vital Signs: Vital Signs Temperature 98.7 F 10/24/25 15:22 Pulse Rate 80 10/24/25 15:22 Respiratory Rate 26 H 10/24/25 15:22 Blood Pressure 120/74 10/24/25 15:22 Pulse Oximetry 100 10/24/25 15:22 Oxygen Delivery Method Room Air 10/24/25 15:22 <Usama Traylor MD - Last Filed: 10/24/25 18:03> Initial Vital Signs Initial Vital Signs: Vital Signs Temperature 98.7 F 10/24/25 15:22 Pulse Rate 80 10/24/25 15:22 Respiratory Rate 26 H 10/24/25 15:22 Blood Pressure 120/74 10/24/25 15:22 Pulse Oximetry 100 10/24/25 15:22 Oxygen Delivery Method Room Air 10/24/25 15:22 Course <Danya Rothman PA-C - Last Filed: 10/24/25 15:53> Orders Ordered: ED Orders 10/24/25 15:29 XR chest 1V Stat EKG-12 Lead Stat 10/24/25 15:39 VBG [Venous Blood Gas] STAT 10/24/25 15:41 Complete Blood Count AUTO DIFF Stat Comprehensive Metabolic Panel Stat Creatine Kinase Stat Lipase Stat Magnesium Stat NT-proBNP (BNP-Adult 18+) Stat PTT Partial Thromboplastin Reinaldo Stat Prothrombin Time INR Stat Troponin I Stat 10/24/25 16:03 Venous Blood Gas Routine 10/24/25 16:11 Covid-19 + FLU A/B + RSV - PCR Stat Albuterol (Albuterol 2.5 Mg/3 Ml Neb (Adult)) 2.5 mg INH [id number] PRN PRN Reason: Shortness Of Breath Last Admin: 10/24/25 15:56 Dose: 2.5 mg Documented By: SAT Discontinued Medications Albuterol (Albuterol 2.5 Mg/3 Ml Neb (Adult)) 2.5 mg INH NOW ONE Stop: 10/24/25 17:53 Albuterol/Ipratropium (Albuterol/Ipratropium 3 Ml Ampul) 3 ml INH Q20M DANIEL Stop: 10/24/25 16:11 Last Admin: 10/24/25 15:54 Dose: Not Given Documented By: Admin: 10/24/25 15:52 Dose: 3 ml Documented By: Admin: 10/24/25 15:43 Dose: 3 ml Documented By: SAT Methylprednisolone (Methylprednisolone Succ 125 Mg/2 Ml Vial) 125 mg IV NOW ONE Stop: 10/24/25 15:29 Last Admin: 10/24/25 16:01 Dose: 125 mg Documented By: AMISH Oxycodone HCl (Oxycodone Ir 5 Mg Tablet) 5 mg PO NOW ONE Stop: 10/24/25 15:53 Last Admin: 10/24/25 16:01 Dose: 5 mg Documented By: AMISH Vital Signs Vital signs: Vital Signs - 8 hr 10/24/25 15:22 10/24/25 15:40 10/24/25 15:47 Temperature 98.7 F Pulse Rate 80 95 H 89 Respiratory Rate 26 H 20 Blood Pressure 120/74 Pulse Oximetry 100 99 99 Oxygen Delivery Method Room Air Room Air Oxygen Flow Rate 0 10/24/25 16:00 Temperature Pulse Rate 89 Respiratory Rate Blood Pressure Pulse Oximetry 98 Oxygen Delivery Method Oxygen Flow Rate <Usama Traylor MD - Last Filed: 10/24/25 18:03> Orders Ordered: ED Orders 10/24/25 15:29 XR chest 1V Stat EKG-12 Lead Stat 10/24/25 15:39 VBG [Venous Blood Gas] STAT 10/24/25 15:41 Complete Blood Count AUTO DIFF Stat Comprehensive Metabolic Panel Stat Creatine Kinase Stat Lipase Stat Magnesium Stat NT-proBNP (BNP-Adult 18+) Stat PTT Partial Thromboplastin Reinaldo Stat Prothrombin Time INR Stat Troponin I Stat 10/24/25 16:03 Venous Blood Gas Routine 10/24/25 16:11 Covid-19 + FLU A/B + RSV - PCR Stat Albuterol (Albuterol 2.5 Mg/3 Ml Neb (Adult)) 2.5 mg INH [id number] PRN PRN Reason: Shortness Of Breath Last Admin: 10/24/25 15:56 Dose: 2.5 mg Documented By: RENNY Discontinued Medications Albuterol (Albuterol 2.5 Mg/3 Ml Neb (Adult)) 2.5 mg INH NOW ONE Stop: 10/24/25 17:53 Albuterol/Ipratropium (Albuterol/Ipratropium 3 Ml Ampul) 3 ml INH Q20M [facility] Stop: 10/24/25 16:11 Last Admin: 10/24/25 15:54 Dose: Not Given Documented By: Admin: 10/24/25 15:52 Dose: 3 ml Documented By: Admin: 10/24/25 15:43 Dose: 3 ml Documented By: RENNY Methylprednisolone (Methylprednisolone Succ 125 Mg/2 Ml Vial) 125 mg IV NOW ONE Stop: 10/24/25 15:29 Last Admin: 10/24/25 16:01 Dose: 125 mg Documented By: AMISH Oxycodone HCl (Oxycodone Ir 5 Mg Tablet) 5 mg PO NOW ONE Stop: 10/24/25 15:53 Last Admin: 10/24/25 16:01 Dose: 5 mg Documented By: AMISH Reevaluation(s) Reevaluation #1: At 5:45 p.m. the patient is re-evaluated. Patient describes 5 days of a cough and increasing shortness of breath. History of COPD, has albuterol and other inhalers medications at home and has not albuterol nebulizer. When I evaluated her she is speaking in full sentences. Has expiratory wheezes, prolonged expiratory phase. Air movement is good, vital signs are reassuring as is her oxygen saturation. We will start her on a prednisone taper. We will give her another albuterol here before she is discharged and I recommended follow up soon with her primary care provider. Vital Signs Vital signs: Vital Signs - 8 hr 10/24/25 15:22 10/24/25 15:40 10/24/25 15:47 Temperature 98.7 F Pulse Rate 80 95 H 89 Respiratory Rate 26 H 20 Blood Pressure 120/74 Pulse Oximetry 100 99 99 Oxygen Delivery Method Room Air Room Air Oxygen Flow Rate 0 10/24/25 16:00 Temperature Pulse Rate 89 Respiratory Rate Blood Pressure Pulse Oximetry 98 Oxygen Delivery Method Oxygen Flow Rate MDM - URI/Sore Throat <Danya Rothman PA-C - Last Filed: 10/24/25 15:53> Medical Records Attestation: I reviewed the patient's medical records. Lab Data 10/24/25 15:41 10/24/25 15:41 Labs: Lab Results 10/24/25 10/24/25 10/24/25 Range/Units 15:41 16:03 16:11 WBC 7.8 (4.5-11.0) X10^3/uL RBC 4.17 (4.0-5.2) X10^6/uL Hgb 11.9 L (12.0-16.0) g/dL Hct 36.1 (36-46) % MCV 86.5 (80-100) fL MCH 28.4 (26-34) PG MCHC 32.8 (30-36) % RDW 14.5 (11.6-14.8) % Plt Count 366 (150-400) X10^3/uL Neut % (Auto) 61.3 (50-75) % Lymph % (Auto) 26.0 (25-40) % [place] % (Auto) 8.5 (3-14) % Eos % (Auto) 3.2 (2-4) % Baso % (Auto) 1.0 (0-2) % Neut # (Auto) 4800 (1886-2617) /uL Lymph # (Auto) 2000 (2723-8981) /uL [place] # (Auto) 700 (0-900) /uL Eos # (Auto) 200 (0-450) /uL Baso # (Auto) 100 (0-100) /uL PT 10.7 (9.4-12.5) SECONDS INR 0.9 (0.9-1.3) APTT 32 (25.1-36.5) SECONDS VBG pH 7.42 (7.33-7.43) VBG pCO2 42.3 L (45-50) mmHg VBG pO2 47 H (35-45) mmHg VBG HCO3 28 (24-28) mmol/L VBG Total CO2 26 (24-29) mmol/L VBG O2 Saturation 83 H (70-75) % VBG Base Excess 2.8 (0-4) mmol/L Sodium 141 (137-145) mmol/L Potassium 4.0 (3.4-5.1) mmol/L Chloride 106 (98-107) mmol/L Carbon Dioxide 25 (22-32) mmol/L BUN 18 H (7-17) mg/dL Creatinine 0.75 (0.52-1.04) mg/dL Estimated GFR > 60 (>60) mL/min BUN/Creatinine Ratio 24.0 H (6-22) Glucose 118 H (70-99) mg/dL Calcium 8.9 (8.4-10.2) mg/dL Magnesium 1.9 (1.6-2.3) mg/dL Total Bilirubin 0.3 (0.2-1.3) mg/dL AST 27 (14-36) IU/L ALT 21 (<35) IU/L Alkaline Phosphatase 98 (38-126) U/L Total Creatine Kinase 42 (30-135) U/L Troponin I < 0.012 (0.01-0.034) ng/mL NT-Pro-B Natriuret Pep 52 (<125) pg/mL Total Protein 7.4 (6.3-8.2) g/dL Albumin 4.4 (3.5-5.0) g/dL Globulin 3.0 (1.7-4.1) g/dL Albumin/Globulin Ratio 1.5 (1.0-2.8) Lipase 51 (23-300) U/L SARS-CoV-2 (PCR) Negative (Negative) Influenza A (RT-PCR) Flu a negative (NEGATIVE) Influenza B (RT-PCR) Flu b negative (NEGATIVE) RSV (PCR) Negative (Negative) Urine Dip Bedside Urine Glucose Negative Bedside Urine Bilirubin - Negative Bedside Urine Ketone - Negative Urine Specific [place] 1.010 Bedside Urine Occult Blood - Negative Bedside Urine pH 6.0 Bedside Urine Protein - Negative Bedside Urine Urobilinogen - Negative Bedside Urine Nitrite - Negative Bedside Urine Leukocytes - Negative Esterase MDM Narrative Medical decision making narrative: 65-year-old female with a past medical history of COPD, recent CVA discharged from 1 month ago, [id number]-[id number] T2 DM, chronic pain, CAD, HTN, HLD, CHF who presents to the emergency department with her caregiver for progressive productive cough x5 days. Medical record review reveals that patient was admitted to the hospital on 09/06/2025 for COPD exacerbation and pneumonia at that time. Differential diagnosis includes but is not limited to COPD exacerbation, pneumonia, viral syndrome, reactive airway disease, myocarditis, etc. On exam the patient is in no acute distress however she is breathing with increased respiratory effort. Vital signs reveal normal blood pressure 120/74, pulse 80 beats per minute, temperature 98.7?, 100% oxygenation on room air however respiratory rate is increased at 26. She has extensive expiratory wheezing throughout the lung neri. No lower extremity edema. We will obtain CBC, CMP, troponin, CK-MB P, coags, viral swab, chest x-ray, treat with DuoNeb, Solu-Medrol at this time. Home oxycodone 5 mg ordered. Case discussed with Dr. Slack, VBG added. Will transfer care to Dr. Traylor. <Usama Traylor MD - Last Filed: 10/24/25 18:03> Lab Data Lab results narrative: No leukocytosis, chemistries show a normal creatinine mildly elevated glucose. Venous blood gas shows a normal pH and CO2. Troponin and proBNP are normal. Labs: Lab Results 10/24/25 10/24/25 10/24/25 Range/Units 15:41 16:03 16:11 WBC 7.8 (4.5-11.0) X10^3/uL RBC 4.17 (4.0-5.2) X10^6/uL Hgb 11.9 L (12.0-16.0) g/dL Hct 36.1 (36-46) % MCV 86.5 (80-100) fL MCH 28.4 (26-34) PG MCHC 32.8 (30-36) % RDW 14.5 (11.6-14.8) % Plt Count 366 (150-400) X10^3/uL Neut % (Auto) 61.3 (50-75) % Lymph % (Auto) 26.0 (25-40) % [place] % (Auto) 8.5 (3-14) % Eos % (Auto) 3.2 (2-4) % Baso % (Auto) 1.0 (0-2) % Neut # (Auto) 4800 (3774-9395) /uL Lymph # (Auto) 2000 (6862-4256) /uL [place] # (Auto) 700 (0-900) /uL Eos # (Auto) 200 (0-450) /uL Baso # (Auto) 100 (0-100) /uL PT 10.7 (9.4-12.5) SECONDS INR 0.9 (0.9-1.3) APTT 32 (25.1-36.5) SECONDS VBG pH 7.42 (7.33-7.43) VBG pCO2 42.3 L (45-50) mmHg VBG pO2 47 H (35-45) mmHg VBG HCO3 28 (24-28) mmol/L VBG Total CO2 26 (24-29) mmol/L VBG O2 Saturation 83 H (70-75) % VBG Base Excess 2.8 (0-4) mmol/L Sodium 141 (137-145) mmol/L Potassium 4.0 (3.4-5.1) mmol/L Chloride 106 (98-107) mmol/L Carbon Dioxide 25 (22-32) mmol/L BUN 18 H (7-17) mg/dL Creatinine 0.75 (0.52-1.04) mg/dL Estimated GFR > 60 (>60) mL/min BUN/Creatinine Ratio 24.0 H (6-22) Glucose 118 H (70-99) mg/dL Calcium 8.9 (8.4-10.2) mg/dL Magnesium 1.9 (1.6-2.3) mg/dL Total Bilirubin 0.3 (0.2-1.3) mg/dL AST 27 (14-36) IU/L ALT 21 (<35) IU/L Alkaline Phosphatase 98 (38-126) U/L Total Creatine Kinase 42 (30-135) U/L Troponin I < 0.012 (0.01-0.034) ng/mL NT-Pro-B Natriuret Pep 52 (<125) pg/mL Total Protein 7.4 (6.3-8.2) g/dL Albumin 4.4 (3.5-5.0) g/dL Globulin 3.0 (1.7-4.1) g/dL Albumin/Globulin Ratio 1.5 (1.0-2.8) Lipase 51 (23-300) U/L SARS-CoV-2 (PCR) Negative (Negative) Influenza A (RT-PCR) Flu a negative (NEGATIVE) Influenza B (RT-PCR) Flu b negative (NEGATIVE) RSV (PCR) Negative (Negative) Urine Dip Bedside Urine Glucose Negative Bedside Urine Bilirubin - Negative Bedside Urine Ketone - Negative Urine Specific [place] 1.010 Bedside Urine Occult Blood - Negative Bedside Urine pH 6.0 Bedside Urine Protein - Negative Bedside Urine Urobilinogen - Negative Bedside Urine Nitrite - Negative Bedside Urine Leukocytes - Negative Esterase Imaging Data Chest x-ray: My Impression: Independently reviewed chest x-ray, no acute findings. Radiologist's Impression: No acute abnormality reported by Radiology ECG Data Attestation: I personally reviewed and interpreted this ECG as follows: (EKG shows sinus rhythm at [address] segment changes occasional PVCs) MDM Narrative Medical decision making narrative: 65-year-old female with a past medical history of COPD, recent CVA discharged from 1 month ago, [id number] T2 DM, chronic pain, CAD, HTN, HLD, CHF who presents to the emergency department with her caregiver for progressive productive cough x5 days. Medical record review reveals that patient was admitted to the hospital on 09/06/2025 for COPD exacerbation and pneumonia at that time. Differential diagnosis includes but is not limited to COPD exacerbation, pneumonia, viral syndrome, reactive airway disease, myocarditis, etc. On exam the patient is in no acute distress however she is breathing with increased respiratory effort. Vital signs reveal normal blood pressure 120/74, pulse 80 beats per minute, temperature 98.7?, 100% oxygenation on room air however respiratory rate is increased at 26. She has extensive expiratory wheezing throughout the lung neri. No lower extremity edema. We will obtain CBC, CMP, troponin, CK-MB P, coags, viral swab, chest x-ray, treat with DuoNeb, Solu-Medrol at this time. Home oxycodone 5 mg ordered. Case discussed with Dr. Traylor, VBG added. Will transfer care to Dr. Traylor. 65-year-old female COPD presenting with increased shortness of breath and cough. Differential diagnosis includes but is not limited to COPD exacerbation, pneumonia, heart failure exacerbation and ischemia. Workup is generally reassuring, I do not think that she needs antibiotics at this point I am not concerned that she had heart failure or ischemia pulmonary embolism was considered and felt unlikely in the setting. She was started on a steroid taper and I recommend she continue with her home bronchodilators Discharge Plan Departure Patient Disposition: Home Clinical Impression: COPD with exacerbation Activity Restrictions/Additional Instructions: Continue with your regular medications including at-home albuterol as needed. Take the prescribed prednisone beginning tomorrow morning. Follow up soon with your primary care provider, if you are having increasing shortness of breath fevers or other acute symptoms recheck in the emergency department. Prescriptions: New prednisone 20 mg tablet 60 mg PO DAILY Qty: 16 0RF Rx Instructions: take 60mg (three tablets) daily for 2 days, then 40mg (two tablets) daily for 3 days then 20mg (one tablet) daily for 3 days then 10mg (1/2 tablet) daily for 2 days No Action (DME) True Metrix Glucose Test Strip Strip See Rx Instructions .Route Qty: 100 2RF Rx Instructions: As directed oxycodone 5 mg tablet 5 mg PO DAILY PRN (Reason: pain) Qty: 30 0RF (DME) glucose test strips See Rx Instructions .ROUTE .MEDSUPPLY Qty: 400 0RF Rx Instructions: to test 4 times daily True Metrix brand cetirizine 10 mg tablet 10 mg PO DAILY cyclobenzaprine 10 mg tablet 10 mg PO TID PRN (Reason: muscle spasm) Qty: 90 2RF atorvastatin 40 mg tablet 80 mg PO BEDTIME Qty: 90 3RF carvedilol 3.125 mg tablet 3.125 mg PO BID Qty: 180 3RF clopidogrel 75 mg tablet 75 mg PO DAILY Qty: 90 3RF Rx Instructions: takes in the evening hydrochlorothiazide 25 mg tablet 25 mg PO DAILY Qty: 90 3RF hydroxyzine HCl 25 mg tablet 25 mg PO TID PRN (Reason: Anxiety) Qty: 60 0RF ipratropium bromide 21 mcg (0.03 %) spray,non-aerosol 2 spray intranasal BID Qty: 30 0RF lidocaine 5 % adhesive patch,medicated 1 patch TOPICAL DAILY PRN (Reason: Pain) Qty: 30 0RF Rx Instructions: leave on most painful area for up to 12 hrs losartan 100 mg tablet 100 mg PO QAM Qty: 90 3RF metformin 500 mg tablet extended release 24 hr 500 mg PO DAILY Qty: 90 3RF sertraline 50 mg tablet 50 mg PO QAM Qty: 90 3RF trazodone 50 mg tablet 50 mg PO ONCE PM Qty: 90 0RF fluticasone furoate-vilanterol [Breo Ellipta] 200-25 mcg/dose blister with device 1 inh inhalation DAILY Qty: 60 0RF amlodipine 5 mg tablet 5 mg PO DAILY cilostazol 50 mg tablet 100 mg PO BID acetaminophen 500 mg tablet 1,000 mg PO Q12H albuterol sulfate 90 mcg/actuation HFA aerosol inhaler 2 puff inhalation Q4H PRN (Reason: Wheezing) benzonatate 100 mg Capsule 100 mg PO TID PRN (Reason: Cough) Qty: 60 1RF Referrals: Nahomi Hoffman MD [Primary Care Provider, Family Practice] Stand Alone Forms: Patient Portal/API
[2025-10-24] MEDS: ALBUTEROL/IPRATROPIUM 3 ML AMPUL INH ×2 (15:43→15:52)
[2025-10-24 15:54] LABS: Add Manual Diff / Slide Review NO; Hematocrit 36.1 % (36-46); Hemoglobin 11.9 g/dL (12.0-16.0); Lymphocytes Absolute Auto 2000 /uL (1100-4500); Mean Corpuscular HGB Conc 32.8 % (30-36); Mean Corpuscular Hemoglobin 28.4 PG (26-34); Mean Corpuscular Volume 86.5 fL (80-100); Platelet Count 366 X10^3/uL (150-400)
[2025-10-24] MEDS: ALBUTEROL 2.5 MG/3 ML NEB (ADULT) INH ×2 (15:56→18:14)
[2025-10-24 16:00] LABS: INR 0.9 (0.9-1.3); Prothrombin Time 10.7 SECONDS (9.4-12.5)
--- NOTE | 2025-10-24 16:00 | EKG_ITS ---
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
[2025-10-24] MEDS: methylPREDNISolone succ 125 MG/2 ML VIAL IV (16:01)
[2025-10-24 16:02] LABS: Creatine Kinase 42 U/L (30-135); PTT Partial Thromboplastin Tim 32 SECONDS (25.1-36.5)
[2025-10-24 16:03] LABS: Alanine Aminotransferase 21 IU/L (<35); Albumin 4.4 g/dL (3.5-5.0); Albumin Globulin Ratio 1.5 (1.0-2.8); Alkaline Phosphatase 98 U/L (38-126); Blood Urea Nitrogen 18 mg/dL (7-17); Calcium 8.9 mg/dL (8.4-10.2); Carbon Dioxide 25 mmol/L (22-32); Chloride 106 mmol/L (98-107); Estimated Glomerular Filt Rate > 60 mL/min (>60); Globulin 3.0 g/dL (1.7-4.1); Glucose 118 mg/dL (70-99); HEMOLYSIS < 15 (0-50); Lipase 51 U/L (23-300); Magnesium 1.9 mg/dL (1.6-2.3); Potassium 4.0 mmol/L (3.4-5.1); Sodium 141 mmol/L (137-145); Total Protein 7.4 g/dL (6.3-8.2)
[2025-10-24 16:06] LABS: Base Excess VBG 2.8 mmol/L (0-4); HCO3 VBG 28 mmol/L (24-28); Oxygen Saturation VBG 83 % (70-75); PCO2 VBG 42.3 mmHg (45-50); PO2 VBG 47 mmHg (35-45); Total CO2 VBG 26 mmol/L (24-29); pH VBG 7.42 (7.33-7.43)
[2025-10-24 16:14] LABS: NT-proBNP (BNP-Adult 18+) 52 pg/mL (<125); Troponin I < 0.012 ng/mL (0.01-0.034)
[2025-10-24 17:05] LABS: Influenza A - CEPHEID Flu A NEGATIVE (NEGATIVE); Influenza B - CEPHEID Flu B NEGATIVE (NEGATIVE)
[2025-10-24 17:07] LABS: COVID-19 CEPHEID 4-PLEX PCR Negative (Negative)
== END 2025-10-24 18:50 | disposition home or self-care (01) ==
PROVIDERS: Physician Assistant; Emergency Provider Emergency Medicine; PCP Family Medicine
DX: J44.1 Chronic obstructive pulmonary disease with (acute) exacerbation (principal); I11.0 Hypertensive heart disease with heart failure; I50.9 Heart failure, unspecified; Z86.73 Personal history of transient ischemic attack (TIA), and cerebral infarction without residual deficits; Z87.891 Personal history of nicotine dependence
CPT/HCPCS: 36415; 71045; 80053; 81003; 82550; 82805; 83690; 83735; 83880; 84484; 85025; 85610; 85730; 87637; 93005; 94640; 96374; 99284; J2919; J7613

== ENCOUNTER 2025-10-31 12:06 | Emergency (ER) | payer MEDICARE, MEDICAID, SELFPAY ==
[2025-09-06 20:45] VITALS: BMI 36.2
[2025-10-31] VITALS (27 sets, daily range): BP systolic 108–149; BP diastolic 59–76; PULSE 89–108; RESP 19–35; TEMP 36.2; O2SAT 96–99; BMI 36.1
--- NOTE | 2025-10-31 12:21 | ED.SOB ---
HPI - SOB/Dyspnea General Chief Complaint: Shortness of Breath/Dyspnea Stated Complaint: N/V sob/chest px Time Seen by Provider: 10/31/25 12:20 History of Present Illness HPI Narrative: Patient here with caregiver 2 weeks of cough cold congestion fever by aches chills sneezing nausea or vomiting chest pain abdominal pain with vomiting. No black or bloody stools. No known sick contacts. Patient has chronic left hip pain and needs her oxycodone now. Patient has history of COPD. Does breathing treatment but has not been doing them regularly. Does not smoke. Patient in no distress speaking full sentences comfortably. Has reproducible substernal tenderness on exam on palpation and coughing. Also abdominal discomfort on palpation. Related Data Home Medications ?Medication ?Instructions ?Recorded ?Confirmed acetaminophen 500 mg tablet 1,000 mg PO Q12H 11/26/24 09/19/25 albuterol sulfate 90 mcg/actuation 2 puff inhalation Q4H PRN Wheezing 11/26/24 10/02/25 aerosol inhaler cetirizine 10 mg tablet 10 mg PO DAILY 08/30/25 10/02/25 Previous Rx's ?Medication ?Instructions ?Recorded benzonatate 100 mg capsule 100 mg PO TID PRN Cough #60 caps 08/22/25 atorvastatin 40 mg tablet 80 mg (2 x 40 mg) PO BEDTIME #90 08/30/25 tabs carvedilol 3.125 mg tablet 3.125 mg PO BID #180 tabs 08/30/25 clopidogrel 75 mg tablet 75 mg PO DAILY #90 tabs 08/30/25 cyclobenzaprine 10 mg tablet 10 mg PO TID PRN muscle spasm #90 08/30/25 tabs hydrochlorothiazide 25 mg tablet 25 mg PO DAILY #90 tabs 08/30/25 hydroxyzine HCl 25 mg tablet 25 mg PO TID PRN Anxiety #60 tabs 08/30/25 ipratropium bromide 21 mcg (0.03 2 spray intranasal BID #30 mL 08/30/25 %) nasal spray lidocaine 5 % topical patch 1 patch topical DAILY PRN Pain #30 08/30/25 ea losartan 100 mg tablet 100 mg PO QAM #90 tabs 08/30/25 metformin 500 mg tablet,extended 500 mg PO DAILY #90 tabs 08/30/25 release 24 hr sertraline 50 mg tablet 50 mg PO QAM #90 tabs 08/30/25 trazodone 50 mg tablet 50 mg PO ONCE PM #90 tabs 08/30/25 fluticasone furoate 200 1 inh inhalation DAILY #60 ea 09/25/25 mcg-vilanterol 25 mcg/dose inhalation powder (Breo Ellipta) blood sugar diagnostic (True #100 ea 10/02/25 Metrix Glucose Test Strip) glucose test strips #400 ea 10/02/25 prednisone 20 mg tablet 60 mg (3 x 20 mg) PO DAILY #16 tabs 10/24/25 methylprednisolone 4 mg tablets in See Rx Instructions PO .COMPLEX 10/31/25 a dose pack (Medrol (Ming)) #21 ea naloxone 4 mg/actuation nasal 4 mg intranasal Q2M PRN opioid 10/31/25 spray (Narcan) overdose #2 ea oxycodone-acetaminophen 5 mg-325 1 tab PO Q4-6H PRN pain #16 tabs 10/31/25 mg tablet (Percocet) oxycodone 5 mg tablet 5 mg PO DAILY PRN pain #30 tabs 11/01/25 amlodipine 5 mg tablet 5 mg PO DAILY #90 tabs 11/02/25 cilostazol 50 mg tablet 100 mg (2 x 50 mg) PO BID #60 tabs 11/02/25 Allergies Allergy/AdvReac Type Severity Reaction Status Date / Time aspirin (ASPIRIN) Allergy Severe Throat Verified 10/31/25 12:16 closes, eye itching, difficulty breathing buprenorphine (From Suboxone) Allergy Severe Throat Verified 10/31/25 12:16 closing, vomiting ibuprofen (IBUPROFEN) Allergy Severe Throat Verified 10/31/25 12:16 closes, eye itching, difficulty breathing ketorolac (From TORADOL) Allergy Severe Throat Verified 10/31/25 12:16 closes, eye itching, difficulty breathing methadone Allergy Severe Hard time Verified 10/31/25 12:16 breathing, my vital signs were dropping naloxone (From Suboxone) Allergy Severe Throat Verified 10/31/25 12:16 closing, vomiting NSAIDS (Non-Steroidal Allergy Severe Throat Verified 10/31/25 12:16 Anti-Inflamma closes, eye itching, difficulty breathing tramadol (TRAMADOL) Allergy Severe Rash, my Verified 10/31/25 12:16 throat was closing duloxetine Allergy Rash Verified 10/31/25 12:16 gabapentin AdvReac Gastrointestinal Verified 10/31/25 12:16 Upset Review of Systems Review of Systems Narrative: GENERAL: Negative chills, fatigue, malaise, fever, sweats. HEENT: Negative sinus pain, ear pain, sore throat RESPIRATORY: Positive dyspnea, cough CARDIOVASCULAR: Positive chest pain, palpitations GASTROINTESTINAL: Positive vomiting, nausea, abdominal pain : Negative dysuria, frequency, hematuria MUSCULOSKELETAL: Negative muscle or bony pain SKIN: Negative rash, skin lesions NEUROLOGIC: Negative weakness, numbness ROS Unobtainable: All systems reviewed & are unremarkable except as noted in HPI and below Patient History Medical History DM2 (diabetes mellitus, type 2) Chronic narcotic dependence Insomnia CHF (congestive heart failure) Chronic pain History of CVA (cerebrovascular accident) Myocardial infarction Hepatic steatosis Drug-seeking behavior Seizures Peptic ulcer disease PTSD (post-traumatic stress disorder) Depression Easy bruisability Osteoarthritis GERD (gastroesophageal reflux disease) HLD (hyperlipidemia) HTN (hypertension) Asthma Hearing loss Prediabetes Other chronic pain Tinea pedis Pain in right hip Anxiety Coronary artery disease COPD (chronic obstructive pulmonary disease) Stroke (1999) Surgical History Hx of colonoscopy Hx of tonsillectomy History of surgery on wrist History of bilateral knee replacement Social History household members: none Smoking Status: Former smoker alcohol intake: never tobacco type: cigarettes alcohol intake frequency: holidays/special occasions only Exam Narrative Exam Narrative: GENERAL: in no distress, not toxic not dyspneic HEAD: Normocephalic. EYES: Pupils equal round ENT: Mucous membranes moist. NECK: Trachea midline. CARDIOVASCULAR: Regular rate and rhythm RESPIRATORY: Diminished lung sounds at the bases with coarse lung sounds bilaterally. Patient is speaking full sentences comfortably. Reproducible sternal tenderness on palpation and coughing. GASTROINTESTINAL: Abdomen soft, mild epigastric tenderness on palpation. BACK: No flank tenderness. EXTREMITIES: No gross deformities. NEURO: AOx4. Clear speech SKIN: Warm and dry PSYCH: Not anxious, is cooperative Initial Vital Signs Initial Vital Signs: Vital Signs Temperature 97.1 F L 10/31/25 12:16 Pulse Rate 97 H 10/31/25 12:16 Respiratory Rate 20 10/31/25 12:16 Blood Pressure 134/60 10/31/25 12:16 Pulse Oximetry 99 10/31/25 12:16 Oxygen Delivery Method Room Air 10/31/25 12:16 Course Orders Ordered: Discontinued Medications Albuterol (Albuterol 2.5 Mg/3 Ml Neb (Adult)) 5 mg INH NOW ONE Stop: 10/31/25 12:39 Last Admin: 10/31/25 12:42 Dose: 5 mg Documented By: BECKIE Albuterol/Ipratropium (Albuterol/Ipratropium 3 Ml Ampul) 3 ml INH NOW ONE Stop: 10/31/25 12:24 Last Admin: 10/31/25 12:28 Dose: 3 ml Documented By: BECKIE Sodium Chloride (Normal Saline 0.9%) 500 mls @ 1,000 mls/hr IV BOLUS ONE Stop: 10/31/25 12:52 Last Infusion: 10/31/25 13:55 Dose: Infused Documented By: Admin: 10/31/25 12:55 Dose: 1,000 mls/hr Documented By: VIKKI Methylprednisolone (Methylprednisolone Succ 125 Mg/2 Ml Vial) 125 mg IV NOW ONE Stop: 10/31/25 12:34 Last Admin: 10/31/25 12:56 Dose: 125 mg Documented By: VIKKI Ondansetron HCl (Ondansetron 4 Mg/2 Ml Inj) 4 mg IV NOW ONE Stop: 10/31/25 12:34 Last Admin: 10/31/25 12:56 Dose: 4 mg Documented By: VIKKI Oxycodone/Acetaminophen (Oxycodone/Acetaminophen 5/325 Tablet) 1 tab PO NOW ONE Stop: 10/31/25 12:24 Last Admin: 10/31/25 12:56 Dose: 1 tab Documented By: VIKKI Vital Signs Vital signs: Vital Signs - 8 hr 10/31/25 12:16 10/31/25 12:31 10/31/25 12:33 Temperature 97.1 F L Pulse Rate 97 H 108 H 98 H Respiratory Rate 20 24 Blood Pressure 134/60 Pulse Oximetry 99 98 99 Oxygen Delivery Method Room Air Room Air Oxygen Flow Rate 0 Fraction of Inspired Oxygen 21 10/31/25 12:40 10/31/25 12:40 10/31/25 12:43 Temperature Pulse Rate 101 H 100 H Respiratory Rate 22 Blood Pressure 124/71 Pulse Oximetry 96 97 Oxygen Delivery Method Room Air Oxygen Flow Rate 0 Fraction of Inspired Oxygen 21 10/31/25 12:45 10/31/25 12:45 10/31/25 12:50 Temperature Pulse Rate 100 H Respiratory Rate Blood Pressure 132/59 L 123/67 Pulse Oximetry 97 Oxygen Delivery Method Oxygen Flow Rate Fraction of Inspired Oxygen 10/31/25 12:50 10/31/25 12:55 10/31/25 12:55 Temperature Pulse Rate 103 H 100 H Respiratory Rate Blood Pressure 132/64 Pulse Oximetry 98 97 Oxygen Delivery Method Oxygen Flow Rate Fraction of Inspired Oxygen 10/31/25 13:00 10/31/25 13:00 10/31/25 13:05 Temperature Pulse Rate 101 H Respiratory Rate Blood Pressure 135/76 121/64 Pulse Oximetry 97 Oxygen Delivery Method Oxygen Flow Rate Fraction of Inspired Oxygen 10/31/25 13:05 10/31/25 13:10 10/31/25 13:10 Temperature Pulse Rate 99 H 101 H Respiratory Rate Blood Pressure 120/66 Pulse Oximetry 96 97 Oxygen Delivery Method Oxygen Flow Rate Fraction of Inspired Oxygen 10/31/25 13:15 10/31/25 13:15 10/31/25 13:20 Temperature Pulse Rate 97 H 101 H Respiratory Rate Blood Pressure 121/64 Pulse Oximetry 97 97 Oxygen Delivery Method Oxygen Flow Rate Fraction of Inspired Oxygen 10/31/25 13:20 10/31/25 13:25 10/31/25 13:25 Temperature Pulse Rate 97 H Respiratory Rate Blood Pressure 125/69 123/68 Pulse Oximetry 97 Oxygen Delivery Method Oxygen Flow Rate Fraction of Inspired Oxygen 10/31/25 13:30 10/31/25 13:30 10/31/25 13:35 Temperature Pulse Rate 100 H 101 H Respiratory Rate Blood Pressure 133/67 Pulse Oximetry 97 96 Oxygen Delivery Method Room Air Oxygen Flow Rate Fraction of Inspired Oxygen 10/31/25 13:35 10/31/25 13:45 10/31/25 13:45 Temperature Pulse Rate 98 H Respiratory Rate 30 H 23 Blood Pressure 130/62 131/62 Pulse Oximetry 96 Oxygen Delivery Method Oxygen Flow Rate Fraction of Inspired Oxygen 10/31/25 14:01 10/31/25 14:02 10/31/25 14:13 Temperature Pulse Rate 104 H 105 H Respiratory Rate 25 H Blood Pressure 148/71 H Pulse Oximetry 97 98 Oxygen Delivery Method Oxygen Flow Rate Fraction of Inspired Oxygen 10/31/25 14:13 10/31/25 14:15 10/31/25 14:15 Temperature Pulse Rate 102 H Respiratory Rate 24 Blood Pressure 143/66 H 149/68 H Pulse Oximetry 98 Oxygen Delivery Method Oxygen Flow Rate Fraction of Inspired Oxygen 10/31/25 14:23 10/31/25 14:30 10/31/25 14:31 Temperature Pulse Rate 89 100 H Respiratory Rate 24 19 Blood Pressure 108/64 Pulse Oximetry 96 97 Oxygen Delivery Method Oxygen Flow Rate Fraction of Inspired Oxygen 10/31/25 14:31 10/31/25 14:44 10/31/25 14:45 Temperature Pulse Rate 100 H 100 H Respiratory Rate 28 H 35 H Blood Pressure 131/61 Pulse Oximetry 97 96 Oxygen Delivery Method Oxygen Flow Rate Fraction of Inspired Oxygen MDM - SOB/Dyspnea Lab Data 10/31/25 12:35 10/31/25 12:35 Labs: Lab Results 10/31/25 10/31/25 10/31/25 Range/Units 12:26 12:35 14:12 WBC 9.6 (4.5-11.0) X10^3/uL RBC 4.42 (4.0-5.2) X10^6/uL Hgb 12.5 (12.0-16.0) g/dL Hct 38.2 (36-46) % MCV 86.5 (80-100) fL MCH 28.3 (26-34) PG MCHC 32.8 (30-36) % RDW 14.5 (11.6-14.8) % Plt Count 380 (150-400) X10^3/uL Neut % (Auto) 81.9 H (50-75) % Lymph % (Auto) 11.4 L (25-40) % [place] % (Auto) 5.0 (3-14) % Eos % (Auto) 1.1 L (2-4) % Baso % (Auto) 0.6 (0-2) % Neut # (Auto) 7800 H (8492-6823) /uL Lymph # (Auto) 1100 (1500-1023) /uL [place] # (Auto) 500 (0-900) /uL Eos # (Auto) 100 (0-450) /uL Baso # (Auto) 100 (0-100) /uL PT 10.3 (9.4-12.5) SECONDS INR 0.9 (0.9-1.3) APTT 31 (25.1-36.5) SECONDS Sodium 144 (137-145) mmol/L Potassium 3.7 (3.4-5.1) mmol/L Chloride 105 (98-107) mmol/L Carbon Dioxide 26 (22-32) mmol/L BUN 22 H (7-17) mg/dL Creatinine 0.81 (0.52-1.04) mg/dL Estimated GFR > 60 (>60) mL/min BUN/Creatinine Ratio 27.2 H (6-22) Glucose 136 H (70-99) mg/dL Calcium 9.2 (8.4-10.2) mg/dL Magnesium 2.1 (1.6-2.3) mg/dL Total Bilirubin 0.3 (0.2-1.3) mg/dL AST 34 (14-36) IU/L ALT 31 (<35) IU/L Alkaline Phosphatase 115 (38-126) U/L Troponin I < 0.012 (0.01-0.034) ng/mL Total Protein 7.8 (6.3-8.2) g/dL Albumin 4.6 (3.5-5.0) g/dL Globulin 3.2 (1.7-4.1) g/dL Albumin/Globulin Ratio 1.4 (1.0-2.8) U Opiates 300ng/mL cut Negative (Negative) Ur Oxycodone Screen Positive H (Negative) Urine Methadone Screen Negative (Negative) Ur Barbiturates Screen Negative (Negative) U Tricyclic Antidepress Negative (Negative) Ur Phencyclidine Scrn Negative (Negative) Ur Amphetamines Screen Negative (Negative) U Methamphetamines Scrn Negative (Negative) Ur MDMA Scrn (Ecstasy) Negative (Negative) U Benzodiazepines Scrn Negative (Negative) Urine Cocaine Screen Negative (Negative) U Marijuana (THC) Screen Negative (Negative) Urine pH Normal (Normal) Urine Specific [place] Normal (Normal) Ur Creatinine Normal (Normal) Chlamy pneumoniae PCR Not detected (Not Detect) Adenovirus (PCR) Not detected (Not Detect) B. pertussis DNA (PCR) Not detected (Not Detect) B.parapertussis DNA PCR Not detected (Not Detecte) Coronavirus OC43 (PCR) Not detected (Not Detect) Coronavirus HKU1 (PCR) Not detected (Not Detect) Coronavirus 229E (PCR) Not detected (Not Detect) SARS-CoV-2 (PCR) Not detected (Not Detecte) Coronavirus NL63 (PCR) Not detected (Not Detect) Human Metapneumovir PCR Not detected (Not Detect) Influenza Type A (PCR) Not detected (Not Detect) Influenza Type B (PCR) Not detected (Not Detect) M. pneumoniae (PCR) Not detected (Not Detect) Parainfluenza 1 (PCR) Not detected (Not Detect) Parainfluenza 2 (PCR) Not detected (Not Detect) Parainfluenza 3 (PCR) Not detected (Not Detect) Parainfluenza 4 (PCR) Not detected (Not Detect) RSV (PCR) Not detected (Not Detect) Entero/Rhino (PCR) Not detected (Not Detect) Imaging Data Chest x-ray: Radiologist's Impression: [address] [address] XRay Report Signed Patient: Cira Stafford MR#: [id number] : 1960 Acct:[id number] Age/Sex: 65 / F Date of Service: 10/31/25 Loc: ED Accession Number: [id number] Procedure: XR chest 1V Ordering Provider: Cortez Haas MD PROCEDURE: XR CHEST 1V INDICATIONS: Cough/chest pain TECHNIQUE: One view of the chest was acquired. COMPARISON: [facility], , XR CHEST 1V, 10/24/2025, 15:39. FINDINGS: Surgical changes and devices: None. Lungs and pleura: Lungs are clear. No pleural effusions or pneumothorax. Mediastinum: Mediastinal contours appear normal. Heart size is normal. Bones and chest wall: No suspicious bony lesions. Overlying soft tissues appear unremarkable. IMPRESSION: No acute cardiopulmonary abnormality is seen. Dictated by: Sidney Linton M.D. on 10/31/2025 at 13:04 Approved by: Sidney Linton M.D. on 10/31/2025 at 13:05 CT scan - chest: Radiologist's Impression: [address] [address] [address] Scan Report Signed Patient: Cira Stafford MR#: [id number] : 1960 Acct:[id number] Age/Sex: 65 / F Date of Service: 10/31/25 Loc: ED Accession Number: [id number] Procedure: CT angio chest PE protocol Ordering Provider: Cortez Haas MD PROCEDURE: CT ANGIO CHEST PE PROTOCOL INDICATIONS: Dyspnea TECHNIQUE: After the administration of intravenous contrast, 2 mm thick sections acquired from the pulmonary apices to the posterior costophrenic angles. 3-dimensional maximum intensity projection (MIP) coronal and sagittal reformats were then acquired through the thorax. For radiation dose reduction, the following was used: automated exposure control, adjustment of mA and/or kV according to patient size. COMPARISON: [facility], CT, CT ANGIO CHEST PE PROTOCOL, 12/09/2024, 14:42. FINDINGS: Image quality: Diagnostic. Pulmonary arteries: Pulmonary arteries are normal in size, and demonstrate no intraluminal filling defects to suggest central pulmonary embolism. Lower Neck: No enlarged lymph nodes. Thyroid: No thyroid nodules which require sonographic follow up, per consensus guidelines. Axillae: No enlarged lymph nodes. Chest Wall: Unremarkable. Bones: Unremarkable. Lungs and Pleura: No pneumothorax or pleural effusions. No consolidation or suspicious nodules. Heart: Heart size is normal. No pericardial effusion. Thoracic Vessels: No aortic aneurysm. Mediastinum and Amy: No enlarged lymph nodes. Esophagus: No wall thickening. Mild hiatal hernia. Upper Abdomen: Unchanged hyperdensity in the superior left renal pole likely complicated cyst. IMPRESSION: No pulmonary embolus. No acute cardiopulmonary process. Dictated by: Enid Cm M.D. on 10/31/2025 at 14:19 Approved by: Enid Cm M.D. on 10/31/2025 at 14:47 [facility] Narrative Medical decision making narrative: Patient here with caregiver 2 weeks of cough cold congestion fever by aches chills sneezing nausea or vomiting chest pain abdominal pain with vomiting. No black or bloody stools. No known sick contacts. Patient has chronic left hip pain and needs her oxycodone now. Patient has history of COPD. Does breathing treatment but has not been doing them regularly. Does not smoke. Patient in no distress speaking full sentences comfortably. Has reproducible substernal tenderness on exam on palpation and coughing. Also abdominal discomfort on palpation. Patient has history of diabetes chronic pain coronary artery disease hypertension hyperlipidemia stroke/seen 1 month ago transfer to [facility]. History of CHF MDM After history and exam, CBC CMP respiratory panel chest x-ray breathing treatment oxycodone normal saline Zofran Differential considered: Includes but not limited to pneumonia bronchitis COVID influenza RSV rhino virus chronic hip pain Medical records reviewed: Seen here October 24 2025 for upper respiratory infection. Notes reviewed. Lab Test results independently reviewed as above. Pertinent findings: WBC 9.6 hemoglobin 12.5 INR 0.9 sodium 144 potassium 3.7 troponin less than 0.012 respiratory panel negative. Independently reviewed EKG sinus tachycardia rate 103 Imaging studies independently reviewed: Chest x-ray no acute finding, CT chest no PE no acute finding Consultations: None indicated at this time. Re-evaluations: 3:02 p.m.. Updated patient and care provider results and exam. She has been up and walking in the hallway room air 98% room air without any trouble breathing after breathing treatments. Reviewed with them diagnosed with likely COPD exacerbation. She did require short course refill of her oxycodone as she is out of it. I will provide this as well. As well as Medrol Dosepak. She has breathing treatments to take at home and she will need to take them every 4 hours as needed for COPD. They desire discharge home Discussion: IV contrast use for CT imaging. Appropriate for discharge home. Exam is reassuring. Return precautions reviewed. Patient feeling much better at time of discharge. No nausea or vomiting. Likely COPD exacerbation. No chest pain. She desires discharge home. Diagnosis: COPD exacerbation/medication refill Discharge Plan Departure Patient Disposition: Home Clinical Impression: Acute exacerbation of chronic obstructive airways disease, Medication refill Instructions: DI for Chronic Obstructive Pulmonary Disease Activity Restrictions/Additional Instructions: Your exam and laboratory studies are reassuring. Please do take your breathing treatments every 4 hours as needed for your COPD. Continue your home prednisone steroids, if any questions about the dosing please feel the prescription I have printed for you for better instructions. Short course refill of the oxycodone has been provided for you. Please see your family doctor for refills. Return if worse if any questions or concerns. See your family doctor this week for recheck/re-evaluation. Narcan prescription has been provided for you for any difficulty with taking too much of the oxycodone. Prescriptions: New oxycodone-acetaminophen [Percocet] 5-325 mg tablet 1 tab PO Q4-6H PRN (Reason: pain) Qty: 16 0RF methylprednisolone [Medrol (Ming)] 4 mg tablets,dose pack See Rx Instructions .ROUTE .COMPLEX Qty: 21 0RF Rx Instructions: orally per package directions naloxone [Narcan] 4 mg/actuation spray,non-aerosol 4 mg intranasal Q2M PRN (Reason: opioid overdose) Qty: 2 0RF Rx Instructions: spray 1 dose into ONE nostril; alternate nostrils w each dose until help arrives No Action (DME) True Metrix Glucose Test Strip Strip See Rx Instructions .Route Qty: 100 2RF Rx Instructions: As directed (DME) glucose test strips See Rx Instructions .ROUTE .MEDSUPPLY Qty: 400 0RF Rx Instructions: to test 4 times daily True Metrix brand cetirizine 10 mg tablet 10 mg PO DAILY cyclobenzaprine 10 mg tablet 10 mg PO TID PRN (Reason: muscle spasm) Qty: 90 2RF atorvastatin 40 mg tablet 80 mg PO BEDTIME Qty: 90 3RF carvedilol 3.125 mg tablet 3.125 mg PO BID Qty: 180 3RF clopidogrel 75 mg tablet 75 mg PO DAILY Qty: 90 3RF Rx Instructions: takes in the evening hydrochlorothiazide 25 mg tablet 25 mg PO DAILY Qty: 90 3RF hydroxyzine HCl 25 mg tablet 25 mg PO TID PRN (Reason: Anxiety) Qty: 60 0RF ipratropium bromide 21 mcg (0.03 %) spray,non-aerosol 2 spray intranasal BID Qty: 30 0RF lidocaine 5 % adhesive patch,medicated 1 patch TOPICAL DAILY PRN (Reason: Pain) Qty: 30 0RF Rx Instructions: leave on most painful area for up to 12 hrs losartan 100 mg tablet 100 mg PO QAM Qty: 90 3RF metformin 500 mg tablet extended release 24 hr 500 mg PO DAILY Qty: 90 3RF sertraline 50 mg tablet 50 mg PO QAM Qty: 90 3RF trazodone 50 mg tablet 50 mg PO ONCE PM Qty: 90 0RF fluticasone furoate-vilanterol [Breo Ellipta] 200-25 mcg/dose blister with device 1 inh inhalation DAILY Qty: 60 0RF oxycodone 5 mg tablet 5 mg PO DAILY PRN (Reason: pain) Qty: 30 0RF amlodipine 5 mg tablet 5 mg PO DAILY Qty: 90 0RF cilostazol 50 mg tablet 100 mg PO BID Qty: 60 2RF prednisone 20 mg tablet 60 mg PO DAILY Qty: 16 0RF Rx Instructions: take 60mg (three tablets) daily for 2 days, then 40mg (two tablets) daily for 3 days then 20mg (one tablet) daily for 3 days then 10mg (1/2 tablet) daily for 2 days acetaminophen 500 mg tablet 1,000 mg PO Q12H albuterol sulfate 90 mcg/actuation HFA aerosol inhaler 2 puff inhalation Q4H PRN (Reason: Wheezing) benzonatate 100 mg Capsule 100 mg PO TID PRN (Reason: Cough) Qty: 60 1RF Referrals: Nahomi Hoffman MD [Primary Care Provider, Family Practice] Stand Alone Forms: Patient Portal/API
--- NOTE | 2025-10-31 12:24 | DI.RAD.S_ITS ---
PROCEDURE: XR CHEST 1V INDICATIONS: Cough/chest pain TECHNIQUE: One view of the chest was acquired. COMPARISON: [facility], CR, XR CHEST 1V, 10/24/2025, 15:39. FINDINGS: Surgical changes and devices: None. Lungs and pleura: Lungs are clear. No pleural effusions or pneumothorax. Mediastinum: Mediastinal contours appear normal. Heart size is normal. Bones and chest wall: No suspicious bony lesions. Overlying soft tissues appear unremarkable. IMPRESSION: No acute cardiopulmonary abnormality is seen. Dictated by: Sidney Linton M.D. on 10/31/2025 at 13:04 Approved by: Sidney Linton M.D. on 10/31/2025 at 13:05
[2025-10-31] MEDS: ALBUTEROL/IPRATROPIUM 3 ML AMPUL INH (12:28)
[2025-10-31 12:42] LABS: Add Manual Diff / Slide Review NO; Hematocrit 38.2 % (36-46); Hemoglobin 12.5 g/dL (12.0-16.0); Lymphocytes Absolute Auto 1100 /uL (1100-4500); Mean Corpuscular HGB Conc 32.8 % (30-36); Mean Corpuscular Hemoglobin 28.3 PG (26-34); Mean Corpuscular Volume 86.5 fL (80-100); Platelet Count 380 X10^3/uL (150-400)
[2025-10-31] MEDS: ALBUTEROL 2.5 MG/3 ML NEB (ADULT) 5 MG INH (12:42)
--- NOTE | 2025-10-31 12:42 | EKG_ITS ---
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
[2025-10-31 12:48] LABS: INR 0.9 (0.9-1.3); Prothrombin Time 10.3 SECONDS (9.4-12.5)
--- NOTE | 2025-10-31 12:48 | PC.NURSE ---
Patient tells this RN that she has been having nausea, vomiting and diarrhea in addition to SOB, cough and fatigue. Currently has 10/10 chest pain and respirations are deep and at a rate of 32-36. RT is at bedside giving treatment. Provider Samina is aware.
[2025-10-31 12:50] LABS: PTT Partial Thromboplastin Tim 31 SECONDS (25.1-36.5)
[2025-10-31 12:53] LABS: Alanine Aminotransferase 31 IU/L (<35); Albumin 4.6 g/dL (3.5-5.0); Albumin Globulin Ratio 1.4 (1.0-2.8); Alkaline Phosphatase 115 U/L (38-126); Blood Urea Nitrogen 22 mg/dL (7-17); Calcium 9.2 mg/dL (8.4-10.2); Carbon Dioxide 26 mmol/L (22-32); Chloride 105 mmol/L (98-107); Estimated Glomerular Filt Rate > 60 mL/min (>60); Globulin 3.2 g/dL (1.7-4.1); Glucose 136 mg/dL (70-99); HEMOLYSIS 16 (0-50); Magnesium 2.1 mg/dL (1.6-2.3); Potassium 3.7 mmol/L (3.4-5.1); Sodium 144 mmol/L (137-145); Total Protein 7.8 g/dL (6.3-8.2)
[2025-10-31] MEDS: SODIUM CHLORIDE 0.9% 500 ML 1000 ML IV (12:55)
[2025-10-31] MEDS: ONDANSETRON 4 MG/2 ML INJ IV (12:56)
[2025-10-31] MEDS: methylPREDNISolone succ 125 MG/2 ML VIAL IV (12:56)
[2025-10-31 13:05] LABS: Troponin I < 0.012 ng/mL (0.01-0.034)
--- NOTE | 2025-10-31 13:45 | DI.CT.S_ITS ---
PROCEDURE: CT ANGIO CHEST PE PROTOCOL INDICATIONS: Dyspnea TECHNIQUE: After the administration of intravenous contrast, 2 mm thick sections acquired from the pulmonary apices to the posterior costophrenic angles. 3-dimensional maximum intensity projection (MIP) coronal and sagittal reformats were then acquired through the thorax. For radiation dose reduction, the following was used: automated exposure control, adjustment of mA and/or kV according to patient size. COMPARISON: [facility], CT, CT ANGIO CHEST PE PROTOCOL, 12/09/2024, 14:42. FINDINGS: Image quality: Diagnostic. Pulmonary arteries: Pulmonary arteries are normal in size, and demonstrate no intraluminal filling defects to suggest central pulmonary embolism. Lower Neck: No enlarged lymph nodes. Thyroid: No thyroid nodules which require sonographic follow up, per consensus guidelines. Axillae: No enlarged lymph nodes. Chest Wall: Unremarkable. Bones: Unremarkable. Lungs and Pleura: No pneumothorax or pleural effusions. No consolidation or suspicious nodules. Heart: Heart size is normal. No pericardial effusion. Thoracic Vessels: No aortic aneurysm. Mediastinum and Amy: No enlarged lymph nodes. Esophagus: No wall thickening. Mild hiatal hernia. Upper Abdomen: Unchanged hyperdensity in the superior left renal pole likely complicated cyst. IMPRESSION: No pulmonary embolus. No acute cardiopulmonary process. Dictated by: Enid Cm M.D. on 10/31/2025 at 14:19 Approved by: Enid Cm M.D. on 10/31/2025 at 14:47
[2025-10-31 14:09] LABS: Coronavirus NL 63 Not Detected (Not Detect); SARS- CoV-2 Not Detected (Not Detecte)
[2025-10-31 14:30] LABS: UR Morphine/Opiate cutoff 300 Negative (Negative); Ur Specific Gravity Normal (Normal); Urine MDMA Negative (Negative); Urine Methamphetamines Negative (Negative); Urine Tetrahydrocannabinol Negative (Negative); Urine Tricyclic Antidepressant Negative (Negative)
== END 2025-10-31 15:21 | disposition home or self-care (01) ==
PROVIDERS: Emergency Provider Emergency Medicine; PCP Family Medicine
DX: J44.1 Chronic obstructive pulmonary disease with (acute) exacerbation (principal); R05.9 Cough, unspecified; G89.29 Other chronic pain; M25.552 Pain in left hip; R11.2 Nausea with vomiting, unspecified; Z76.0 Encounter for issue of repeat prescription; Z79.51 Long term (current) use of inhaled steroids; Z87.891 Personal history of nicotine dependence
CPT/HCPCS: 36415; 71045; 71275; 80053; 80305; 83735; 84484; 85025; 85610; 85730; 87633; 93005; 94640; 96374; 96375; 99284; J2405; J2919; J7040; J7613; Q9967

== ENCOUNTER 2025-11-06 11:24 | Inpatient (IN) | payer MEDICARE, MEDICAID, SELFPAY ==
[2025-09-06 20:45] VITALS: BMI 36.2
[2025-11-06 11:47] VITALS: BP 100/61; PULSE 105; RESP 17; TEMP 36.3; O2SAT 98; BMI 36.8
--- NOTE | 2025-11-06 11:53 | ED.NEUROSD ---
HPI - Neuro Symptoms/Deficit General Chief Complaint: Neuro Symptoms/Deficit Stated Complaint: Light headed , 7 days Time Seen by Provider: 11/06/25 11:53 Source: patient Mode of arrival: Family Vehicle History of Present Illness HPI Narrative: Last well known a p.m. last night. Patient awoke at 2:30 a.m. this morning with dizziness feels like the room spinning. Feels like stroke she had in September 12, 2025 seen here. Patient had TNK and was transferred to [facility]. 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 That is not new. Patient is beyond TNK indication timeline. Informed patient this. Does continue to have shortness of breath with her COPD. I saw her 6 days ago for COPD exacerbation. Patient completed her prednisone pack. Patient in no distress at this time. Speaking full sentences comfortably. She still feels dizzy. On Anticoagulants: Yes Related Data Home Medications ?Medication ?Instructions ?Recorded ?Confirmed acetaminophen 500 mg tablet 1,000 mg PO Q12H 11/26/24 09/19/25 albuterol sulfate 90 mcg/actuation 2 puff inhalation Q4H PRN Wheezing 11/26/24 10/02/25 aerosol inhaler cetirizine 10 mg tablet 10 mg PO DAILY 08/30/25 10/02/25 Previous Rx's ?Medication ?Instructions ?Recorded benzonatate 100 mg capsule 100 mg PO TID PRN Cough #60 caps 08/22/25 atorvastatin 40 mg tablet 80 mg (2 x 40 mg) PO BEDTIME #90 08/30/25 tabs carvedilol 3.125 mg tablet 3.125 mg PO BID #180 tabs 08/30/25 clopidogrel 75 mg tablet 75 mg PO DAILY #90 tabs 08/30/25 cyclobenzaprine 10 mg tablet 10 mg PO TID PRN muscle spasm #90 08/30/25 tabs hydrochlorothiazide 25 mg tablet 25 mg PO DAILY #90 tabs 08/30/25 hydroxyzine HCl 25 mg tablet 25 mg PO TID PRN Anxiety #60 tabs 08/30/25 ipratropium bromide 21 mcg (0.03 2 spray intranasal BID #30 mL 08/30/25 %) nasal spray lidocaine 5 % topical patch 1 patch topical DAILY PRN Pain #30 08/30/25 ea losartan 100 mg tablet 100 mg PO QAM #90 tabs 08/30/25 metformin 500 mg tablet,extended 500 mg PO DAILY #90 tabs 08/30/25 release 24 hr sertraline 50 mg tablet 50 mg PO QAM #90 tabs 08/30/25 trazodone 50 mg tablet 50 mg PO ONCE PM #90 tabs 08/30/25 fluticasone furoate 200 1 inh inhalation DAILY #60 ea 09/25/25 mcg-vilanterol 25 mcg/dose inhalation powder (Breo Ellipta) blood sugar diagnostic (True #100 ea 10/02/25 Metrix Glucose Test Strip) glucose test strips #400 ea 10/02/25 prednisone 20 mg tablet 60 mg (3 x 20 mg) PO DAILY #16 tabs 10/24/25 methylprednisolone 4 mg tablets in See Rx Instructions PO .COMPLEX 10/31/25 a dose pack (Medrol (Ming)) #21 ea naloxone 4 mg/actuation nasal 4 mg intranasal Q2M PRN opioid 10/31/25 spray (Narcan) overdose #2 ea oxycodone-acetaminophen 5 mg-325 1 tab PO Q4-6H PRN pain #16 tabs 10/31/25 mg tablet (Percocet) oxycodone 5 mg tablet 5 mg PO DAILY PRN pain #30 tabs 11/01/25 amlodipine 5 mg tablet 5 mg PO DAILY #90 tabs 11/02/25 cilostazol 50 mg tablet 100 mg (2 x 50 mg) PO BID #60 tabs 11/02/25 Allergies Allergy/AdvReac Type Severity Reaction Status Date / Time aspirin (ASPIRIN) Allergy Severe Throat Verified 11/06/25 11:50 closes, eye itching, difficulty breathing buprenorphine (From Suboxone) Allergy Severe Throat Verified 11/06/25 11:50 closing, vomiting ibuprofen (IBUPROFEN) Allergy Severe Throat Verified 11/06/25 11:50 closes, eye itching, difficulty breathing ketorolac (From TORADOL) Allergy Severe Throat Verified 11/06/25 11:50 closes, eye itching, difficulty breathing methadone Allergy Severe Hard time Verified 11/06/25 11:50 breathing, my vital signs were dropping naloxone (From Suboxone) Allergy Severe Throat Verified 11/06/25 11:50 closing, vomiting NSAIDS (Non-Steroidal Allergy Severe Throat Verified 11/06/25 11:50 Anti-Inflamma closes, eye itching, difficulty breathing tramadol (TRAMADOL) Allergy Severe Rash, my Verified 11/06/25 11:50 throat was closing duloxetine Allergy Rash Verified 11/06/25 11:50 gabapentin AdvReac Gastrointestinal Verified 11/06/25 11:50 Upset Review of Systems Review of Systems Narrative: GENERAL: Negative chills, fatigue, malaise, fever, sweats. 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 right leg raise weakness which is not new from previous stroke, positive dizzy, numbness ROS Unobtainable: All systems reviewed & are unremarkable except as noted in HPI and below Hematologic/Lymphatic On Anticoagulants: Yes Patient History Medical History DM2 (diabetes mellitus, type 2) Chronic narcotic dependence Insomnia CHF (congestive heart failure) Chronic pain History of CVA (cerebrovascular accident) Myocardial infarction Hepatic steatosis Drug-seeking behavior Seizures Peptic ulcer disease PTSD (post-traumatic stress disorder) Depression Easy bruisability Osteoarthritis GERD (gastroesophageal reflux disease) HLD (hyperlipidemia) HTN (hypertension) Asthma Hearing loss Prediabetes Other chronic pain Tinea pedis Pain in right hip Anxiety Coronary artery disease COPD (chronic obstructive pulmonary disease) Stroke (1999) Surgical History Hx of colonoscopy Hx of tonsillectomy History of surgery on wrist History of bilateral knee replacement Social History household members: caregiver and none Smoking Status: Former smoker alcohol intake: never tobacco type: cigarettes alcohol intake frequency: holidays/special occasions only Exam Narrative Exam Narrative: GENERAL: in no distress, not toxic not dyspneic HEAD: Normocephalic. EYES: Pupils equal round slight horizontal nystagmus ENT: Mucous membranes moist. NECK: Trachea midline. CARDIOVASCULAR: Regular rate and rhythm RESPIRATORY: Clear to auscultation. Breath sounds equal bilaterally. No wheezes, rales, or rhonchi. GASTROINTESTINAL: Abdomen soft, BACK: No flank tenderness. EXTREMITIES: No gross deformities. NEURO: AOx4. Clear speech no facial droop light touch intact bilateral face hands and legs. Residual right coordinator of health services weakness and right leg raise from previous stroke. SKIN: Warm and dry PSYCH: Not anxious, is cooperative Initial Vital Signs Initial Vital Signs: Vital Signs Temperature 97.3 F L 11/06/25 11:47 Pulse Rate 105 H 11/06/25 11:47 Respiratory Rate 17 11/06/25 11:47 Blood Pressure 100/61 11/06/25 11:47 Pulse Oximetry 98 11/06/25 11:47 Oxygen Delivery Method Room Air 11/06/25 11:47 Scores NIH Stroke Scale Level of Conciousness: Alert, keenly responsive Ask month/age: Answers both questions correctly. Open/close eyes, close hand: Performs both tasks correctly Best gaze horizontal: Normal Visual neri: No visual loss Facial palsy: Normal symetrical movement Left arm drift: No drift for full 10 sec Right arm drift: No drift for full 10 sec Left leg drift: No drift for full 5 sec Right leg drift: No drift for full 5 sec Limb ataxia: Absent Sensory on face/arms/legs: Normal, no sensory loss Best language: No aphasia, normal Dysarthria: Normal Extinction or inattention: No abnormality Total NIH Stroke scale score: 0 Course Orders Ordered: Albuterol (Albuterol 2.5 Mg/3 Ml Neb (Adult)) 2.5 mg INH Q4H PRN PRN Reason: Wheezing Albuterol (Albuterol 2.5 Mg/3 Ml Neb (Adult)) 2.5 mg INH [id number] [facility] Last Admin: 11/06/25 23:28 Dose: Not Given Documented By: Admin: 11/06/25 23:28 Dose: Not Given Documented By: ANDREINA Atorvastatin Calcium (Atorvastatin 20 Mg Tablet) 80 mg PO BEDTIME [facility] Last Admin: 11/06/25 21:19 Dose: 80 mg Documented By: JAYSHREE Budesonide (Budesonide 0.5 Mg/2 Ml Neb) 0.5 mg INH RTBID [facility] Last Admin: 11/06/25 23:28 Dose: Not Given Documented By: ANDREINA Carvedilol (Carvedilol 3.125 Mg Tablet) 3.125 mg PO BID [facility] Last Admin: 11/06/25 21:20 Dose: 3.125 mg Documented By: JAYSHREE Clopidogrel Bisulfate (Clopidogrel 75 Mg Tablet) 75 mg PO DAILY [facility] Enoxaparin Sodium (Enoxaparin 40 Mg/0.4 Ml Syringe) 40 mg SUBCUT DAILY [facility] Sodium Chloride (Normal Saline 0.9%) 1,000 mls @ 100 mls/hr IV CONT [facility] Last Admin: 11/06/25 21:23 Dose: 100 mls/hr Documented By: JAYSHREE Insulin Human Lispro (Insulin Lispro 100 Unit/Ml 3ml Vial) 0 unit SUBCUT ACHS [facility]; Protocol Last Admin: 11/06/25 22:31 Dose: Not Given Documented By: JAYSHREE Lidocaine (Lidocaine 5% Patch) 1 each TOP DAILY PRN PRN Reason: Pain Naloxone HCl (Naloxone 0.4 Mg/Ml Vial) 0.2 mg IV Q2MIN PRN PRN Reason: Opiate Reversal Naloxone HCl (Naloxone 0.4 Mg/Ml Vial) 0.2 mg IV Q2MIN PRN PRN Reason: Opiate Reversal Nf - Cilostazol 50 (Mg Tablet) 100 mg PO BID [facility] Last Admin: 11/06/25 22:30 Dose: Not Given Documented By: JAYSHREE Ondansetron HCl (Ondansetron 4 Mg/2 Ml Inj) 4 mg IV Q8HR PRN PRN Reason: Nausea And Vomiting Oxycodone HCl (Oxycodone Ir 5 Mg Tablet) 5 mg PO DAILY PRN PRN Reason: pain Last Admin: 11/06/25 21:20 Dose: 5 mg Documented By: JAYSHREE Oxycodone/Acetaminophen (Oxycodone/Acetaminophen 5/325 Tablet) 1 tab PO Q4H PRN PRN Reason: pain Sertraline HCl (Sertraline 50 Mg Tablet) 50 mg PO DAILY [facility] Trazodone HCl (Trazodone 50 Mg Tablet) 50 mg PO BEDTIME [facility] Last Admin: 11/06/25 21:19 Dose: 50 mg Documented By: JAYSHREE Discontinued Medications Hydrocodone Bitart/Acetaminophen (Hydrocodone/Acet 5/325 Tablet) 1 tab PO NOW ONE Stop: 11/06/25 15:08 Last Admin: 11/06/25 15:21 Dose: 1 tab Documented By: AMISH Sodium Chloride (Normal Saline 0.9%) 500 mls @ 1,000 mls/hr IV BOLUS ONE Stop: 11/06/25 12: Last Infusion: 11/06/25 13:46 Dose: Infused Documented By: Admin: 11/06/25 12:42 Dose: 1,000 mls/hr Documented By: AMISH Meclizine HCl (Meclizine Hcl 12.5 Mg Tablet) 25 mg PO NOW ONE Stop: 11/06/25 12:00 Last Admin: 11/06/25 12:42 Dose: 25 mg Documented By: AMISH Vital Signs Vital signs: Vital Signs - 8 hr 11/06/25 11:47 Temperature 97.3 F L Pulse Rate 105 H Respiratory Rate 17 Blood Pressure 100/61 Pulse Oximetry 98 Oxygen Delivery Method Room Air MDM - Neuro Symptoms/Deficit Lab Data 11/06/25 12:35 11/06/25 12:35 Labs: Lab Results 11/06/25 Range/Units 12:35 WBC 11.5 H (4.5-11.0) X10^3/uL RBC 4.53 (4.0-5.2) X10^6/uL Hgb 12.9 (12.0-16.0) g/dL Hct 39.0 (36-46) % MCV 86.1 (80-100) fL MCH 28.6 (26-34) PG MCHC 33.2 (30-36) % RDW 14.5 (11.6-14.8) % Plt Count 358 (150-400) X10^3/uL Neut % (Auto) 82.5 H (50-75) % Lymph % (Auto) 12.1 L (25-40) % Braxton % (Auto) 3.9 (3-14) % Eos % (Auto) 0.8 L (2-4) % Baso % (Auto) 0.7 (0-2) % Neut # (Auto) 9500 H (1108-6366) /uL Lymph # (Auto) 1400 (2127-6856) /uL Braxton # (Auto) 500 (0-900) /uL Eos # (Auto) 100 (0-450) /uL Baso # (Auto) 100 (0-100) /uL PT 10.4 (9.4-12.5) SECONDS INR 0.9 (0.9-1.3) APTT 30 (25.1-36.5) SECONDS Sodium 139 (137-145) mmol/L Potassium 4.0 (3.4-5.1) mmol/L Chloride 102 (98-107) mmol/L Carbon Dioxide 27 (22-32) mmol/L BUN 25 H (7-17) mg/dL Creatinine 0.73 (0.52-1.04) mg/dL Estimated GFR > 60 (>60) mL/min BUN/Creatinine Ratio 34.2 H (6-22) Glucose 154 H (70-99) mg/dL Calcium 9.0 (8.4-10.2) mg/dL Total Bilirubin 0.6 (0.2-1.3) mg/dL AST 32 (14-36) IU/L ALT 32 (<35) IU/L Alkaline Phosphatase 118 (38-126) U/L Troponin I < 0.012 (0.01-0.034) ng/mL Total Protein 7.5 (6.3-8.2) g/dL Albumin 4.5 (3.5-5.0) g/dL Globulin 3.0 (1.7-4.1) g/dL Albumin/Globulin Ratio 1.5 (1.0-2.8) Urine Dip Bedside Urine Glucose Negative Bedside Urine Bilirubin - Negative Bedside Urine Ketone - Negative Urine Specific [place] 1.005 Bedside Urine Occult Blood - Negative Bedside Urine pH 7.0 Bedside Urine Protein - Negative Bedside Urine Urobilinogen - Negative Bedside Urine Nitrite - Negative Bedside Urine Leukocytes - Negative Esterase Imaging Data Chest x-ray: Radiologist's Impression: [address] [address] XRay Report Signed Patient: Cira Stafford MR#: [id number] : 1960 Acct:[id number] Age/Sex: 65 / F Date of Service: 11/06/25 Loc: ED Accession Number: [id number] Procedure: XR chest 1V Ordering Provider: Cortez Haas MD PROCEDURE: XR CHEST 1V INDICATIONS: Dyspnea TECHNIQUE: One view of the chest was acquired. COMPARISON: Located Within [facility], CR, XR CHEST 1V, 10/31/2025, 12:35. FINDINGS: Surgical changes and devices: None. Lungs and pleura: Lungs are clear. No pleural effusions or pneumothorax. Mediastinum: Mediastinal contours appear normal. Heart size is normal. Bones and chest wall: No suspicious bony lesions. Overlying soft tissues appear unremarkable. IMPRESSION: No acute cardiopulmonary abnormality is seen. Approved by: Mila Sin M.D.,Ph.D. on 11/06/2025 at 13:07 CT scan - head: Radiologist's Impression: [address] [address] [address] Scan Report Signed Patient: Cira Stafford MR#: [id number] : 1960 Acct:[id number] Age/Sex: 65 / F Date of Service: 11/06/25 Loc: ED Accession Number: [id number] Procedure: CT head/brain wo con Ordering Provider: Cortez Haas MD PROCEDURE: CT HEAD/BRAIN WO CON INDICATIONS: Dizziness TECHNIQUE: Noncontrast 4.5 mm thick angled axial sections acquired from the foramen magnum to the vertex, with coronal and sagittal reformats. For radiation dose reduction, the following was used: automated exposure control, adjustment of mA and/or kV according to patient size. COMPARISON: Located Within [facility], CT, CT HEAD/BRAIN WO CON, 09/12/2025, 14:08. FINDINGS: Image quality: Diagnostic. CSF spaces: Basal cisterns are patent. No extra-axial fluid collections. Ventricles are normal in size and shape. Brain: No midline shift. No intracranial mass effect or hemorrhage. Camacho-white matter interface is normal. Skull and face: Calvarium and visualized facial bones are intact, without suspicious lesions. Sinuses: Visualized sinuses and mastoids are clear. IMPRESSION: No acute intracranial pathology. Approved by: Mila Sin M.D.,Ph.D. on 11/06/2025 at 13:11 CTA - brain/neck: Radiologist's Impression: [address] [address] [address] Scan Report Signed Patient: Cira Stafford MR#: [id number] : 1960 Acct:[id number] Age/Sex: 65 / F Date of Service: 11/06/25 Loc: ED Accession Number: [id number] Procedure: CT angio head and neck Ordering Provider: Cortez Haas MD PROCEDURE: CT ANGIO HEAD AND NECK INDICATIONS: Dizziness TECHNIQUE: After the administration of intravenous contrast, 1 mm thick sections acquired from the aortic arch through the [place] of [place]. 3-dimensional omcidya-qaibxxirv-ahxohqqsyc (MIP) and/or volume rendering reformats were acquired of the central intracranial vasculature and neck separately. For radiation dose reduction, the following was used: automated exposure control, adjustment of mA and/or kV according to patient size. COMPARISON: Located Within [facility], CT, CT ANGIO HEAD AND NECK, 09/12/2025, 14:08. FINDINGS: Image quality: Diagnostic. Cerebral CT Angiogram: Internal carotid arteries: No acute findings. Intracranial ICA are patent with no significant stenosis. No occlusion. No aneurysm. Anterior cerebral arteries: Unremarkable. No significant stenosis. No occlusion. No aneurysm. Middle cerebral arteries: Unremarkable. No significant stenosis. No occlusion. No aneurysm. Posterior cerebral arteries: Unremarkable. No significant stenosis. No occlusion. No aneurysm. Basilar artery: Unremarkable. No significant stenosis. No occlusion. No aneurysm. Vertebral arteries: Unremarkable as visualized. Dural venous sinuses: Unremarkable given phase of enhancement. Other: Arterial phase appearance of the brain parenchyma is unremarkable. Neck CT Angiogram: Internal carotid arteries: Unremarkable. No significant stenosis. No dissection or occlusion. Common carotid arteries: Unremarkable. No significant stenosis. No dissection or occlusion. External carotid arteries: Unremarkable. No occlusion. Vertebral arteries: Unremarkable. No significant stenosis. No dissection or occlusion. Aortic Arch and Mediastinum: Partially visualized aortic arch unremarkable without evidence of aneurysm. Origins of the great vessels unremarkable. Other: Arterial phase soft tissues of the neck and chest are unremarkable. IMPRESSION: No significant intracranial arterial abnormality is seen. No significant abnormality is seen within the arteries of the neck. Any quantitative measurements of stenosis were performed using NASCET criteria. Approved by: Mila Sin M.D.,Ph.D. on 11/06/2025 at 13:14 [place] Narrative Medical decision making narrative: Last well known a p.m. last night. Patient awoke at 2:30 a.m. this morning with dizziness feels like the room spinning. Feels like stroke she had in September 12, 2025 seen here. Patient had TNK and was transferred to [facility]. 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 That is not new. Patient is beyond TNK indication timeline. Informed patient this. Does continue to have shortness of breath with her COPD. I saw her 6 days ago for COPD exacerbation. Patient completed her prednisone pack. Patient in no distress at this time. Speaking full sentences comfortably. She still feels dizzy. MDM After history and exam, CT head CT angiogram head and neck EKG CBC CMP troponin PT PTT INR urinalysis meclizine/admit Differential considered: Includes but not limited to stroke dehydration arrhythmia vertigo Medical records reviewed: October 31, 2025 ER visit as well as a CT chest Lab Test results independently reviewed as above. Pertinent findings: WBC 11.5 hemoglobin 12.9 INR 0.9 Independently reviewed EKG normal sinus rhythm normal EKG rate 98 Imaging studies independently reviewed: CT head CT angiogram head and neck no acute finding chest x-ray no acute finding Consultations: 3:[address] Hong, he agrees to admit Re-evaluations: 247. No improvement with meclizine. Patient is still dizzy. Patient agrees need for admission for TIA/stroke workup. Discussion: IV contrast used for CT imaging. Appropriate for admission for basilar workup for stroke. Patient is outside window for TNK. No large vessel disease. Patient agrees for admission. Diagnosis: Dizziness Stroke Core Measures Exclusion Criteria TPA in CVA: Symptom Onset >3 or 4.5 Hours Discharge Plan Departure Patient Disposition: Admitted as Observation Clinical Impression: Dizziness Admit Date/Time: 11/06/25 16:29 Admit Provider: Michael Hong
--- NOTE | 2025-11-06 11:56 | DI.CT.S_ITS ---
PROCEDURE: CT ANGIO HEAD AND NECK INDICATIONS: Dizziness TECHNIQUE: After the administration of intravenous contrast, 1 mm thick sections acquired from the aortic arch through the [place] of [place]. 3-dimensional uszajqw-umiptasos-rdvydymyvk (MIP) and/or volume rendering reformats were acquired of the central intracranial vasculature and neck separately. For radiation dose reduction, the following was used: automated exposure control, adjustment of mA and/or kV according to patient size. COMPARISON: [facility], CT, CT ANGIO HEAD AND NECK, 09/12/2025, 14:08. FINDINGS: Image quality: Diagnostic. Cerebral CT Angiogram: Internal carotid arteries: No acute findings. Intracranial ICA are patent with no significant stenosis. No occlusion. No aneurysm. Anterior cerebral arteries: Unremarkable. No significant stenosis. No occlusion. No aneurysm. Middle cerebral arteries: Unremarkable. No significant stenosis. No occlusion. No aneurysm. Posterior cerebral arteries: Unremarkable. No significant stenosis. No occlusion. No aneurysm. Basilar artery: Unremarkable. No significant stenosis. No occlusion. No aneurysm. Vertebral arteries: Unremarkable as visualized. Dural venous sinuses: Unremarkable given phase of enhancement. Other: Arterial phase appearance of the brain parenchyma is unremarkable. Neck CT Angiogram: Internal carotid arteries: Unremarkable. No significant stenosis. No dissection or occlusion. Common carotid arteries: Unremarkable. No significant stenosis. No dissection or occlusion. External carotid arteries: Unremarkable. No occlusion. Vertebral arteries: Unremarkable. No significant stenosis. No dissection or occlusion. Aortic Arch and Mediastinum: Partially visualized aortic arch unremarkable without evidence of aneurysm. Origins of the great vessels unremarkable. Other: Arterial phase soft tissues of the neck and chest are unremarkable. IMPRESSION: No significant intracranial arterial abnormality is seen. No significant abnormality is seen within the arteries of the neck. Any quantitative measurements of stenosis were performed using NASCET criteria. Approved by: Mila Sin M.D.,Ph.D. on 11/06/2025 at 13:14
--- NOTE | 2025-11-06 11:58 | DI.CT.S_ITS ---
PROCEDURE: CT HEAD/BRAIN WO CON INDICATIONS: Dizziness TECHNIQUE: Noncontrast 4.5 mm thick angled axial sections acquired from the foramen magnum to the vertex, with coronal and sagittal reformats. For radiation dose reduction, the following was used: automated exposure control, adjustment of mA and/or kV according to patient size. COMPARISON: [facility], CT, CT HEAD/BRAIN WO CON, 09/12/2025, 14:08. FINDINGS: Image quality: Diagnostic. CSF spaces: Basal cisterns are patent. No extra-axial fluid collections. Ventricles are normal in size and shape. Brain: No midline shift. No intracranial mass effect or hemorrhage. Camacho- white matter interface is normal. Skull and face: Calvarium and visualized facial bones are intact, without suspicious lesions. Sinuses: Visualized sinuses and mastoids are clear. IMPRESSION: No acute intracranial pathology. Approved by: Mila Sin M.D.,Ph.D. on 11/06/2025 at 13:11
--- NOTE | 2025-11-06 11:58 | DI.RAD.S_ITS ---
PROCEDURE: XR CHEST 1V INDICATIONS: Dyspnea TECHNIQUE: One view of the chest was acquired. COMPARISON: [facility], CR, XR CHEST 1V, 10/31/2025, 12:35. FINDINGS: Surgical changes and devices: None. Lungs and pleura: Lungs are clear. No pleural effusions or pneumothorax. Mediastinum: Mediastinal contours appear normal. Heart size is normal. Bones and chest wall: No suspicious bony lesions. Overlying soft tissues appear unremarkable. IMPRESSION: No acute cardiopulmonary abnormality is seen. Approved by: Mila Sin M.D.,Ph.D. on 11/06/2025 at 13:07
[2025-11-06] MEDS: MECLIZINE HCL 12.5 MG TABLET 25 MG PO (12:42)
[2025-11-06] MEDS: SODIUM CHLORIDE 0.9% 500 ML 1000 ML IV (12:42)
[2025-11-06 12:44] LABS: Add Manual Diff / Slide Review NO; Hematocrit 39.0 % (36-46); Hemoglobin 12.9 g/dL (12.0-16.0); Lymphocytes Absolute Auto 1400 /uL (1100-4500); Mean Corpuscular HGB Conc 33.2 % (30-36); Mean Corpuscular Hemoglobin 28.6 PG (26-34); Mean Corpuscular Volume 86.1 fL (80-100); Platelet Count 358 X10^3/uL (150-400)
[2025-11-06 12:55] LABS: INR 0.9 (0.9-1.3); Prothrombin Time 10.4 SECONDS (9.4-12.5)
[2025-11-06 12:58] LABS: PTT Partial Thromboplastin Tim 30 SECONDS (25.1-36.5)
--- NOTE | 2025-11-06 13:00 | EKG_ITS ---
[facility] [address] [place] [address] Test Date: 2025-11-06 Pat Name: Cira Stafford Department: [facility] Room: Gender: Female Long Term Acute Care Registered Nurse: : 1960 Requested By: Order Number: [id number] Reading MD: Gomez Calvillo MD Measurements Intervals [place] Rate: 98 P: 41 ME: 128 QRS: 53 QRSD: 76 T: 62 QT: 350 QTc: 446 Interpretive Statements Normal sinus rhythm Electronically Signed On 11-06-2025 13:53:52 PST by Gomez Calvillo MD
[2025-11-06 13:01] LABS: Alanine Aminotransferase 32 IU/L (<35); Albumin 4.5 g/dL (3.5-5.0); Albumin Globulin Ratio 1.5 (1.0-2.8); Alkaline Phosphatase 118 U/L (38-126); Blood Urea Nitrogen 25 mg/dL (7-17); Calcium 9.0 mg/dL (8.4-10.2); Carbon Dioxide 27 mmol/L (22-32); Chloride 102 mmol/L (98-107); Estimated Glomerular Filt Rate > 60 mL/min (>60); Globulin 3.0 g/dL (1.7-4.1); Glucose 154 mg/dL (70-99); HEMOLYSIS 25 (0-50); Potassium 4.0 mmol/L (3.4-5.1); Sodium 139 mmol/L (137-145); Total Protein 7.5 g/dL (6.3-8.2)
[2025-11-06 13:13] LABS: Troponin I < 0.012 ng/mL (0.01-0.034)
[2025-11-06 15:51] VITALS: BP 136/64; PULSE 90; RESP 18; O2SAT 98
--- NOTE | 2025-11-06 15:59 | PM.HP.1 ---
History of Present Illness History of Present Illness Date Patient Seen: 11/06/25 Chief complaint: Light headed , 7 days Narrative: This is a 65-year-old female with a history of diabetes mellitus, chronic narcotic dependence, insomnia, CHF, chronic pain, CVA, IA, hepatic steatosis, seizures, PUD, PTSD, depression, osteoarthritis, GERD, hypertension, hyperlipidemia, asthma, CAD and COPD who presents with apparent recurrent stroke. On September 12 she had a stroke involving right sided dense hemiparesis and visual changes that was treated with tNK and transferred to [facility] where the stroke team treated her. She required no further intervention. She had some residual right-sided symptoms, it is hard to say how much, but has been at home since then. For the last week she has felt intermittent dizziness with vertigo and inability to stand/support herself with the right leg. She was dropping her coffee cup when holding in the right hand. Earlier this morning she fell down and had to have her caregivers come and bring her to the hospital. Her right side feels heavy. On exam she has quite severe right-sided weakness along with slurred speech. CT head and CTA head/neck were normal in August and are normal again today. MRI is pending. On my exam at 4:45 her stroke scale is 6. She has drift in the right arm, drift in the right leg, ataxia in the right upper extremity and minor facial palsy. She is taking her cilostazol full-dose since the stroke. She just finished a short course of prednisone for a COPD exacerbation. She has no significant shortness breath or wheezing at this time. Assessment and plan: Acute recurrent CVA, present on admission. Active. -TNK treatment for acute onset CVA 09/12. -presenting symptoms are right-sided weakness and dizziness -NIH score 6 with right-sided weakness and unclear recently established post stroke baseline. -repeat echocardiogram and brain MRI at this time. -PT and OT evaluations. Speech therapy evaluation. -continue Plavix, cilostazol, atorvastatin -holding amlodipine, hydrochlorothiazide and losartan for permissive hypertension X 24-48 hours. -review any adjustments to treatment with stroke team when MR imaging results are available. Diabetes mellitus type 2, present on admission. Active. -holding metformin, begin medium dose lispro correctional scale. Follow blood sugars. CAD, present on admission. Chronic. -continue Lipitor, Plavix. -continue carvedilol -holding losartan and amlodipine for 24-48 hours to allow permissive hypertension. COPD, present on admission. Chronic. -recently completed a prednisone taper and is now without any acute symptoms. -continue albuterol and other inhalers. Hypertension, present on admission. Chronic. -blood pressure normal on admission. -resume carvedilol, losartan, amlodipine, hydrochlorothiazide when able. Anxiety/depression/PTSD, present on admission. Chronic. -continue trazodone and Zoloft. Enoxaparin for DVT prevention Clarify backup decision maker. [facility] Medical History DM2 (diabetes mellitus, type 2) Chronic narcotic dependence Insomnia CHF (congestive heart failure) Chronic pain History of CVA (cerebrovascular accident) Myocardial infarction Hepatic steatosis Drug-seeking behavior Seizures Peptic ulcer disease PTSD (post-traumatic stress disorder) Depression Easy bruisability Osteoarthritis GERD (gastroesophageal reflux disease) HLD (hyperlipidemia) HTN (hypertension) Asthma Hearing loss Prediabetes Other chronic pain Tinea pedis Pain in right hip Anxiety Coronary artery disease COPD (chronic obstructive pulmonary disease) Stroke (1999) Surgical History Hx of colonoscopy Hx of tonsillectomy History of surgery on wrist History of bilateral knee replacement Social History household members: none alcohol intake: never Meds Home Medications and Allergies Home Medications ?Medication ?Instructions ?Recorded ?Confirmed ?Type acetaminophen 500 mg tablet 1,000 mg PO Q12H 11/26/24 09/19/25 History albuterol sulfate 90 mcg/actuation 2 puff inhalation Q4H PRN Wheezing 11/26/24 10/02/25 History aerosol inhaler benzonatate 100 mg capsule 100 mg PO TID PRN Cough #60 caps 08/22/25 10/02/25 Rx atorvastatin 40 mg tablet 80 mg (2 x 40 mg) PO BEDTIME #90 08/30/25 10/02/25 Rx tabs carvedilol 3.125 mg tablet 3.125 mg PO BID #180 tabs 08/30/25 10/02/25 Rx cetirizine 10 mg tablet 10 mg PO DAILY 08/30/25 10/02/25 History clopidogrel 75 mg tablet 75 mg PO DAILY #90 tabs 08/30/25 10/02/25 Rx cyclobenzaprine 10 mg tablet 10 mg PO TID PRN muscle spasm #90 08/30/25 10/02/25 Rx tabs hydrochlorothiazide 25 mg tablet 25 mg PO DAILY #90 tabs 08/30/25 10/02/25 Rx hydroxyzine HCl 25 mg tablet 25 mg PO TID PRN Anxiety #60 tabs 08/30/25 10/02/25 Rx ipratropium bromide 21 mcg (0.03 2 spray intranasal BID #30 mL 08/30/25 10/02/25 Rx %) nasal spray lidocaine 5 % topical patch 1 patch topical DAILY PRN Pain #30 08/30/25 10/02/25 Rx ea losartan 100 mg tablet 100 mg PO QAM #90 tabs 08/30/25 10/02/25 Rx metformin 500 mg tablet,extended 500 mg PO DAILY #90 tabs 08/30/25 10/02/25 Rx release 24 hr sertraline 50 mg tablet 50 mg PO QAM #90 tabs 08/30/25 10/02/25 Rx trazodone 50 mg tablet 50 mg PO ONCE PM #90 tabs 08/30/25 10/02/25 Rx fluticasone furoate 200 1 inh inhalation DAILY #60 ea 09/25/25 10/02/25 Rx mcg-vilanterol 25 mcg/dose inhalation powder (Breo Ellipta) blood sugar diagnostic (True #100 ea 10/02/25 10/02/25 Rx Metrix Glucose Test Strip) glucose test strips #400 ea 10/02/25 10/02/25 Rx prednisone 20 mg tablet 60 mg (3 x 20 mg) PO DAILY #16 tabs 10/24/25 Rx methylprednisolone 4 mg tablets in See Rx Instructions PO .COMPLEX 10/31/25 Rx a dose pack (Medrol (Ming)) #21 ea naloxone 4 mg/actuation nasal 4 mg intranasal Q2M PRN opioid 10/31/25 Rx spray (Narcan) overdose #2 ea oxycodone-acetaminophen 5 mg-325 1 tab PO Q4-6H PRN pain #16 tabs 10/31/25 Rx mg tablet (Percocet) oxycodone 5 mg tablet 5 mg PO DAILY PRN pain #30 tabs 11/01/25 Rx amlodipine 5 mg tablet 5 mg PO DAILY #90 tabs 11/02/25 Rx cilostazol 50 mg tablet 100 mg (2 x 50 mg) PO BID #60 tabs 11/02/25 Rx Allergies Allergy/AdvReac Type Severity Reaction Status Date / Time aspirin (ASPIRIN) Allergy Severe Throat Verified 11/06/25 11:50 closes, eye itching, difficulty breathing buprenorphine (From Suboxone) Allergy Severe Throat Verified 11/06/25 11:50 closing, vomiting ibuprofen (IBUPROFEN) Allergy Severe Throat Verified 11/06/25 11:50 closes, eye itching, difficulty breathing ketorolac (From TORADOL) Allergy Severe Throat Verified 11/06/25 11:50 closes, eye itching, difficulty breathing methadone Allergy Severe Hard time Verified 11/06/25 11:50 breathing, my vital signs were dropping naloxone (From Suboxone) Allergy Severe Throat Verified 11/06/25 11:50 closing, vomiting NSAIDS (Non-Steroidal Allergy Severe Throat Verified 11/06/25 11:50 Anti-Inflamma closes, eye itching, difficulty breathing tramadol (TRAMADOL) Allergy Severe Rash, my Verified 11/06/25 11:50 throat was closing duloxetine Allergy Rash Verified 11/06/25 11:50 gabapentin AdvReac Gastrointestinal Verified 11/06/25 11:50 Upset Review of Systems Review of Systems Narrative: Positive for dizziness, weakness on the right side, falling due to right leg weakness. Negative for fevers, chills, sweats, nausea, vomiting, abdominal pain, chest pain, shortness breast, dysuria, rashes, headaches, seizures, new allergies, coughing, wheezing. Exam Vital Signs (past 8 hours): - 11/06/25 11:47 11/06/25 15:51 Temperature 97.3 F L Pulse Rate 105 H 90 Respiratory Rate 17 18 Blood Pressure 100/61 136/64 Pulse Oximetry 98 98 Oxygen Delivery Method Room Air Room Air Oxygen Delivery Method Room Air Narrative Exam Narrative: Oriented x3. Very talkative. Mild speech slurring secondary to missing upper dentures. No signs of dysphagia, dysarthria or aphasia. Pupils are equally round and reactive to light and accommodation. Extraocular muscles are intact. Sclerae are pink and nonicteric. No lymph nodes are felt head, neck, supraclavicular area. There is no thyromegaly. JVD is less than 6 cm. No carotid bruits are heard. Heart is regular rate and rhythm without murmur. Lungs are clear to auscultation bilaterally. Abdomen is soft, obese, nontender, no organomegaly. Extremities have no ankle edema. Skin has no rash or jaundice. Babinski's are upgoing on the left and downgoing on the right. Left microbiology lab technician strength and left lower extremity strength is 4/5. Right microbiology lab technician strength and right lower extremity strength is 1/5. Tongue deviates to the right. Right facial droop-mild. Otherwise cranial nerves test intact. Right-sided [id number] alternating movement is abnormal. Left side is normal. There is no tremor. Reflexes are symmetric. Objective Labs 11/06/25 12:35 11/06/25 12:35 Labs: Laboratory Results - last 24 hr 11/06/25 12:35 WBC 11.5 H RBC 4.53 Hgb 12.9 Hct 39.0 MCV 86.1 MCH 28.6 MCHC 33.2 RDW 14.5 Plt Count 358 Neut % (Auto) 82.5 H Lymph % (Auto) 12.1 L [place] % (Auto) 3.9 Eos % (Auto) 0.8 L Baso % (Auto) 0.7 Neut # (Auto) 9500 H Lymph # (Auto) 1400 [place] # (Auto) 500 Eos # (Auto) 100 Baso # (Auto) 100 PT 10.4 INR 0.9 APTT 30 Sodium 139 Potassium 4.0 Chloride 102 Carbon Dioxide 27 BUN 25 H Creatinine 0.73 Estimated GFR > 60 BUN/Creatinine Ratio 34.2 H Glucose 154 H Calcium 9.0 Total Bilirubin 0.6 AST 32 ALT 32 Alkaline Phosphatase 118 Troponin I < 0.012 Total Protein 7.5 Albumin 4.5 Globulin 3.0 Albumin/Globulin Ratio 1.5 Assessment & Plan Time-Based Coding :: [TOTAL MINUTES] spent with patient and on the chart (including review of chart, obtaining history, exam, reviewing outside data, placing orders, documenting exam and treatment plan, and counseling patient) on [DATE].
--- NOTE | 2025-11-06 16:03 | DI.ECHO.S_ITS ---
[facility] : : [address] : : [place] : : [id number] : : Phone: [phone] Echocardiogram Report + + :Name: LANG BLAIR Study Date: 11/08/2025 Height: 61 in : :[facility] ReadingLocation: Weight: 195 lb : : Gender: Female BSA: 1.9 m2 : :: 1960 Age: 65 yrs BP: 110/42 mmHg: :Reason For Study: CVA : :Ordering Physician: ROYCE, : :JAMARI Chavez Performed By: Allan Lindo : :Referring: JAMARI CRANE : + + Interpretation Summary Technically difficult study secondary to poor acoustic windows. Intracardiac echo contrast was utilized. - The left ventricular contractility is normal. Estimated ejection fraction is greater than 60% with no segmental wall motion abnormalities. No LVH. Normal diastolic function. - The right ventricular contractility is normal. - The right atrium is not well-visualized. All other cardiac chambers appears to be normal in size. - While the valves were not well-visualized. Doppler interrogation did not demonstrate any significant insufficiency nor stenoses. - No obvious intracardiac shunts. - No obvious intracardiac masses nor thrombi. - No hemodynamically significant pericardial effusion. Conclusion: Normal biventricular function with no obvious valvular abnormalities. When compared with previous echocardiogram, no significant changes have occurred. Procedure: A two-dimensional transthoracic echocardiogram with color flow and Doppler was performed. A contrast injection of Definity was performed to improve assessment of LV function. The study quality was technically difficult. The study quality was technically limited. Comparison is made with the echocardiogram of 08/22/2025. The patient was in normal sinus rhythm during the exam. Left Ventricle: The left ventricle is grossly normal size. The ejection fraction is estimated to be 60-65%. There are no focal wall motion abnormalities. Right Ventricle: The right ventricle is grossly normal size. The right ventricular systolic function is normal. Atria: The left atrial size is normal. Right atrium not well visualized. The interatrial septum is not well visualized. Mitral Valve: The mitral valve is grossly normal. There is no mitral regurgitation noted. Aortic Valve: The aortic valve is not well visualized. No aortic regurgitation is present. Tricuspid Valve: The tricuspid valve is not well visualized. No tricuspid regurgitation. Pulmonic Valve: The pulmonic valve is not well visualized. Great Vessels: The aortic root is not well visualized. The ascending aorta could not be visualized. The pulmonary is not well visualized. The inferior vena cava was not visualized. MMode/2D Measurements & Calculations LA A2 area: 21.0 cm2 RVD1 (basal): 3.8 cm LA A4 area: 16.2 cm2 RVD2 (mid): 2.9 cm LA length (vol): 5.2 cm TAPSE: 2.8 cm LA vol: 55.7 ml LA vol index: 29.8 ml/m2 Doppler Measurements & Calculations Ao V2 max: 147.1 cm/sec LVOT Max Esequiel: 98.2 cm/sec Ao V2 mean: 100.1 cm/sec LV V1 max P.9 mmHg Ao max P.7 mmHg LV V1 VTI: 22.2 cm Ao mean P.5 mmHg sev ratio: 0.77 Ao V2 VTI: 29.0 cm MV E max esequiel: 65.2 cm/sec MV A max esequiel: 85.0 cm/sec MV E/A: 0.77 Med Peak E' Esequiel: 5.9 cm/sec E/E' med: 11.1 Lat Peak E' Esequiel: 8.4 cm/sec E/E' lat: 7.8 E/e' average: 9.4 MV dec time: 0.27 sec Reading Physician:DINORAH
--- NOTE | 2025-11-06 16:08 | DI.MRI.S_ITS ---
PROCEDURE: MR HEAD/BRAIN WO CON INDICATIONS: New CVA TECHNIQUE: Non-contrast axial T1 spin echo, axial T2 fast spin echo, sagittal and axial FLAIR, coronal T2 fast spin echo, axial gradient echo, axial diffusion and ADC through the brain. COMPARISON: [facility], MR, MR BRAIN WITHOUT CONTRAST, 06/13/2025, 15:32. [facility], CT, CT HEAD/BRAIN WO CON, 11/06/2025, 12:01. FINDINGS: Image quality: Diagnostic CSF spaces: Ventricles appear stable in size and shape. Basal cisterns are patent. No extra-axial fluid collections. Brain: No intracranial bleeds or mass effects. There is moderate cerebral volume loss for age. There are moderate periventricular and deep white matter chronic small vessel ischemic changes. Brainstem appears normal. Diffusion-weighted images show no acute infarct. No chronic ischemic insults. Normal intravascular flow voids are present. Skull and face: Calvarial bone marrow is normal in signal. Orbits are normal. Sinuses: Scattered ethmoid sinus mucosal thickening. Remainder of the paranasal sinuses appear clear. Mastoid air cells are well-aerated. IMPRESSION: MRI brain without acute intracranial abnormalities. No evidence for acute ischemic changes. No evidence for mass or mass effect. Redemonstration of age related senescent changes and sequela of moderate chronic small vessel ischemic disease. Dictated by: Miki Mitchell M.D. on 11/06/2025 at 20:35 Approved by: Miki Mitchell M.D. on 11/06/2025 at 20:38
--- NOTE | 2025-11-06 18:58 | CM.DANOTE ---
DCP Assessment Note: Pt is a 65yo female, resident of [place], is admitted for stroke work up, dizziness. Pt lives in a single level house alone. Pt's Primary Care Provider is Dr. Nahomi Hoffman and insurance is Medicare and Medicaid. Reviewed chart and discussed with multidisciplinary team pt's medical status and initial discharge needs. DCP met w/patient at bedside; introduced self and role. Patient was found in bed, alert and oriented, cooperative with assessment. Pt confirmed living situation and good support in family and caregivers. Pt expressed preference in discharge home when cleared. Pt currently has caregivers through the [facility] program, 5 days/week. Her main Caregiver is, Naga, with [facility] (ph# [phone]). Pt states he has a history of [facility] for SNF Rehab (February 2025) and a [facility] referral. Patient prefers to defer to [facility] caregivers vs. home health. Pt states her nieceNaima (ph#[phone]) is usually pt's first choice for transport if available. Can also utilize Medicaid Transport if necessary. Plan: Anticipating discharge home with [facility] caregivers vs. Rehab, following for possible PT/OT recommendations. CM team will follow closely for coordination of discharge plans. YISSEL Durham Discharge Planning/Care Management CM Discharge Assessment Start: 11/06/25 18:34 Freq: Status: Active Protocol: Document 11/06/25 18:55 MW (Rec: 11/06/25 18:56 MW [id number]) Discharge Planning Assessment Assigned Discharge CHARLY Vo Raw Stock Dyeing Machine Tender Provider Dr. Nahomi Hoffman Insurance Medicaid,Medicare DPOA/Assigned [place], Roman Designee Name Contact Information [phone] Advance Directives? Yes: Yes/POLST Advance Directives No on File History Provided By Patient,Medical Record Has Patient been No admitted in last 30 days? Comment Last admit: 09/08-09/22 Prior Living House Arrangements Household Members none Type of Relies on Others transporation used prior to admit Independent with ADL Yes 's Is patient alert and Yes oriented? Caregiver for No Another Comment FWW, cane, and electric scooter Discharge Plan Home Transportation Family/Niece - Naima Tomlinson or Medicaid transport Arrangement Referrals Initiated None needed Additional Comment Pt had poor experience with HH and wants home with her [facility] CGs Review Status In Process Please Provide Date 11/06/25 Initial DC Assessment Was Performed Next Review Type Continued Stay Review
[2025-11-06 20:27] VITALS: BP 136/66; PULSE 94; RESP 18; TEMP 36.4
[2025-11-06 20:30] VITALS: BMI 36.8
[2025-11-06] MEDS: ATORVASTATIN 20 MG TABLET 80 MG PO (21:19)
[2025-11-06 21:20] VITALS: BP 136/66; PULSE 94
[2025-11-06] MEDS: SODIUM CHLORIDE 0.9% 1,000 ML 100 ML IV (21:23)
[2025-11-06 23:00] VITALS: BP 112/53; PULSE 92; RESP 18; TEMP 36.9; O2SAT 97
[2025-11-07] VITALS (8 sets, daily range): BP systolic 110–167; BP diastolic 42–73; PULSE 70–94; RESP 16–20; TEMP 35.9–37.2; O2SAT 94–98
--- NOTE | 2025-11-07 06:34 | P.PN_ITS ---
Subjective Subjective Date Patient Seen: 11/07/25 Interval history: This is a 65-year-old female with a history of diabetes mellitus, chronic narcotic dependence, insomnia, CHF, chronic pain, CVA, PR, hepatic steatosis, seizures, PUD, PTSD, depression, osteoarthritis, GERD, hypertension, hyperlipidemia, asthma, CAD and COPD who presents with apparent recurrent stroke. On September 12 she had a stroke involving right sided dense hemiparesis and visual changes that was treated with tNK and transferred to [facility] where the stroke team treated her. She required no further intervention. She had some residual right-sided symptoms, it is hard to say how much, but has been at home since then. For the last week she has felt intermittent dizziness with vertigo and inability to stand/support herself with the right leg. She was dropping her coffee cup when holding in the right hand. Earlier this morning she fell down and had to have her caregivers come and bring her to the hospital. Her right side feels heavy. On exam she has quite severe right-sided weakness along with slurred speech. CT head and CTA head/neck were normal in August and are normal again today. MRI is pending. On my exam at 4:45 her stroke scale is 6. She has drift in the right arm, drift in the right leg, ataxia in the right upper extremity and minor facial palsy. She is taking her cilostazol full-dose since the stroke. She just finished a short course of prednisone for a COPD exacerbation. She has no significant shortness breath or wheezing at this time. Assessment and plan: Acute recurrent CVA, present on admission. Active. -TNK treatment for acute onset CVA 09/12. -presenting symptoms were right-sided weakness and dizziness -NIH score 6 with right-sided weakness and unclear recently established post stroke baseline. -repeat echocardiogram pending -No changes on brain MRI, per discussions with PIN TICKET MACHINE OPERATOR Radiologist and with Dr. Leyva at [facility] -Cervical Spine MRI without any explanatory lesion -PT and OT evaluations. Speech therapy evaluation. -continue Plavix, cilostazol, atorvastatin -holding amlodipine, hydrochlorothiazide and losartan for permissive hypertension X 24-48 hours. -per [facility] neurologist discussions on 11/07 patient is likely to have 2 or 3 unrelated conditions causing her symptoms. Since there is no occipital or other cerebral lesion to explain the visual changes she likely has diabetic eye disease accounting for her visual field loss. Since there is no clear lesion to explain the flare or worsening of right-sided weakness this is likely a decompensation from some other brett-neurologic or other metabolic process that is not immediately evident. The vertigo may be that process, perhaps something such as labyrinthitis? -the recommendation is for inpatient rehab or intensive outpatient physical therapy to recover back to her baseline more moderated right-sided weakness. Diabetes mellitus type 2, present on admission. Active. -holding metformin, using medium dose lispro correctional scale. Follow blood sugars. CAD, present on admission. Chronic. -continue Lipitor, Plavix. -continue carvedilol, Losartan and Amlodipine -no stroke found, so no reason for permissive hypertension. COPD, present on admission. Chronic. -recently completed a prednisone taper and is now without any acute symptoms. -continue albuterol and other inhalers. Hypertension, present on admission. Chronic. -blood pressure normal on admission. -resume carvedilol, losartan, amlodipine, hydrochlorothiazide Anxiety/depression/PTSD, present on admission. Chronic. -continue trazodone and Zoloft. Enoxaparin for DVT prevention Clarify backup decision maker. Disposition: Per discussion with Neurology recommend inpatient rehab, or less ideal, but alternatively an outpatient intensive PT program. Exam Vital Signs (past 8 hours): - 11/06/25 23:00 11/07/25 03:00 Temperature 98.4 F 99.0 F Pulse Rate 92 H 94 H Respiratory Rate 18 20 Blood Pressure 112/53 L 110/42 L Pulse Oximetry 97 94 Oxygen Flow Rate 0 0 Oxygen Delivery Method Room Air Oxygen Flow Rate 0 Narrative Exam Narrative: Alert and oriented x3. No apparent distress. Heart is regular rate and rhythm without murmur. Lungs are clear to auscultation bilaterally. Mixed left and right visual field loss noted. Right-sided weakness diffusely now 2/5. No cerebellar lesions. No evidence of vertigo. Objective Labs 11/06/25 12:35 11/06/25 12:35 Labs: Laboratory Results - last 24 hr 11/06/25 11/06/25 12:35 21:06 WBC 11.5 H RBC 4.53 Hgb 12.9 Hct 39.0 MCV 86.1 MCH 28.6 MCHC 33.2 RDW 14.5 Plt Count 358 Neut % (Auto) 82.5 H Lymph % (Auto) 12.1 L [place] % (Auto) 3.9 Eos % (Auto) 0.8 L Baso % (Auto) 0.7 Neut # (Auto) 9500 H Lymph # (Auto) 1400 [place] # (Auto) 500 Eos # (Auto) 100 Baso # (Auto) 100 PT 10.4 INR 0.9 APTT 30 Sodium 139 Potassium 4.0 Chloride 102 Carbon Dioxide 27 BUN 25 H Creatinine 0.73 Estimated GFR > 60 BUN/Creatinine Ratio 34.2 H Glucose 154 H POC Whole Bld Glucose 101 H Calcium 9.0 Total Bilirubin 0.6 AST 32 ALT 32 Alkaline Phosphatase 118 Troponin I < 0.012 Total Protein 7.5 Albumin 4.5 Globulin 3.0 Albumin/Globulin Ratio 1.5 PFSH Medical History DM2 (diabetes mellitus, type 2) Chronic narcotic dependence Insomnia CHF (congestive heart failure) Chronic pain History of CVA (cerebrovascular accident) Myocardial infarction Hepatic steatosis Drug-seeking behavior Seizures Peptic ulcer disease PTSD (post-traumatic stress disorder) Depression Easy bruisability Osteoarthritis GERD (gastroesophageal reflux disease) HLD (hyperlipidemia) HTN (hypertension) Asthma Hearing loss Prediabetes Other chronic pain Tinea pedis Pain in right hip Anxiety Coronary artery disease COPD (chronic obstructive pulmonary disease) Stroke (1999) Surgical History Hx of colonoscopy Hx of tonsillectomy History of surgery on wrist History of bilateral knee replacement Social History household members: caregiver and none Smoking Status: Former smoker alcohol intake: never Assessment & Plan Time-Based Coding :: [TOTAL MINUTES] spent with patient and on the chart (including review of chart, obtaining history, exam, reviewing outside data, placing orders, documenting exam and treatment plan, and counseling patient) on [DATE]. Quality VTE Deep Vein Thrombosis/Pulmonary Embolism Present on Admission: No
[2025-11-07] MEDS: BUDESONIDE 0.5 MG/2 ML NEB INH (07:43)
[2025-11-07] MEDS: ALBUTEROL 2.5 MG/3 ML NEB (ADULT) INH ×2 (07:44→15:28)
[2025-11-07] MEDS: CLOPIDOGREL 75 MG TABLET PO (08:33)
[2025-11-07] MEDS: LIDOCAINE 5% PATCH 1 EACH TOP (08:34)
[2025-11-07] MEDS: SERTRALINE 50 MG TABLET PO (08:34)
[2025-11-07] MEDS: ENOXAPARIN 40 MG/0.4 ML SYRINGE SUBCUT (08:34)
[2025-11-07] MEDS: SODIUM CHLORIDE 0.9% 1,000 ML 100 ML IV (08:36)
--- NOTE | 2025-11-07 09:00 | OT.IP.EVAL ---
Past Medical History (Last Reviewed 10/24/25 @ 15:34 by Danya Rothman PA-C) Anxiety Asthma CHF (congestive heart failure) Chronic narcotic dependence Chronic pain COPD (chronic obstructive pulmonary disease) Coronary artery disease Depression DM2 (diabetes mellitus, type 2) Drug-seeking behavior Easy bruisability GERD (gastroesophageal reflux disease) Hearing loss Hepatic steatosis History of CVA (cerebrovascular accident) HLD (hyperlipidemia) HTN (hypertension) Insomnia Myocardial infarction Osteoarthritis Other chronic pain Pain in right hip Peptic ulcer disease Prediabetes PTSD (post-traumatic stress disorder) Seizures Stroke (1999) Tinea pedis Surgical History (Last Reviewed 10/24/25 @ 15:34 by Danya Rothman PA-C) History of bilateral knee replacement History of surgery on wrist Hx of colonoscopy Hx of tonsillectomy Occupational Therapy Inpatient Evaluation/Re-Eval M1 OT IP Prior Functional Status Start: 11/07/25 09:45 Freq: Status: Active Protocol: Document 11/07/25 09:45 [facility] (Rec: 11/07/25 10:04 [facility] Desktop) Medical Review Prior Functional Status Communication I but has short term memory deficits. Mobility and Gait Pt uses a 4ww to get around with and electric scooter for outdoors. Activities of Daily Pt needs assist with BADL's mainly for LB dressing and Living and IADL's showering needs in addition to IADL needs. Prior Functional Pt has caregivers that assist for approx 8 hours for 5 Level (Other details days and no assist on the weekends. ) Social History Household Members caregiver,none Living Arrangements House Number of Floors ( One Floor Floors) Home Environment Standard Height Toilet,Walk in Shower Home Equipment Four Wheel Walker,Straight Cane,Power Wheelchair/ Scooter,Raised Toilet Seat w/Armrests,Shower Seat without Backrest,Hand Held Shower,Slitting Machine Feeder,Lift Recliner ,Hospital Bed,Grab Bars Near Toilet,Grab Bars In Shower M2 OT-IP Current Condition Start: 11/07/25 09:45 Freq: Status: Active Protocol: Document 11/07/25 09:45 [facility] (Rec: 11/07/25 10:04 [facility] Desktop) Occupational Therapy Current Condition Current Condition Evaluation Date 11/07/25 Treatment Diagnosis Neuro symptoms, RUE weakness Diagnosis Onset Date 11/06/25 M3 OT- IP Subjective and Pain Start: 11/07/25 09:45 Freq: Status: Active Protocol: Document 11/07/25 09:45 [facility] (Rec: 11/07/25 10:04 [facility] Desktop) OT- Subjective Occupational Therapy Visit Type Type Initial Evaluation Visit Start Time 09:00 Visit Stop Time 09:40 Occupational Therapy Visit Comments Patient Comments Pt agreed to get up to brush her teeth. Requested to nursing aid that pt has a chair alarm as pt is a bit impulsive and not wanting to wait long for assistance. Patient/Caregiver To get better. Goals OT Pain Assessment Pain When Pain Assessed At Rest Pain Present Pain Present Denied Pain M4 OT- IP ADL's Start: 11/07/25 09:45 Freq: Status: Active Protocol: Document 11/07/25 09:45 [facility] (Rec: 11/07/25 10:04 [facility] Desktop) OT [id number] Comments OT Self-Feeding Not at meal time. Comments OT ADL-Grooming General Evaluation Grooming Ability Independent Comments OT Grooming Comments Able to do while standing at sink with FWW. OT ADL-Oral Care General Eval Oral Care Ability Independent OT ADL-Dressing General Eval Lower Body Dressing Maximum Assistance Ability Comments OT Dressing Comments Able to practice of customizer and sock aid to help with independence with LB dressing needs. Pt will benefit from getting a sock aid. OT ADL-Toileting Comments OT Toileting Pt not having to go at this time. Comments OT ADL-Bathing Comments OT Bathing Comments Pt will continue to benefit from assist for showering needs. M5 OT- IP IADL's Start: 11/07/25 09:45 Freq: Status: Active Protocol: Document 11/07/25 09:45 [facility] (Rec: 11/07/25 10:04 [facility] Desktop) OT-Instrumental Activities of Daily Living Home Safety Awareness Awareness of Need Good Awareness for Assistance at Home Ability to Problem Able to Problem Solve Solve Emergency Situations Meal Preparation Meal Preparation Caregiver Provides Assist Cloth Mender Cloth Mender Caregiver Provides Assist M6 OT- IP Functional Cognition Start: 11/07/25 09:45 Freq: Status: Active Protocol: Document 11/07/25 09:45 [facility] (Rec: 11/07/25 10:04 [facility] Desktop) Cognitive Factors Limiting Selfcare Function Cognitive Ability Level of Alertness Alert Patient Orientation Name,Place,Situation Attention Span Capable of Focused Attention,Capable of Sustained Ability Attention Ability to Follow Able to Follow One Step Commands Commands Memory Description Short Term Impaired Safety Awareness Underestimates Need for Assistance Cognitive Comments Cognitive Assessment Pt able to follow commands for ADL and mobility needs. Comments Pt will benefit from SLUMS. Per pt has difficulty with her short term memory since her CVA in August 2025. Pt decreased safety awareness and states will just get up if assist does not come in a timely manner. Nursing aid notified to get a chair alarm for the pt. OT- Vision and Hearing OT- Hearing Assessment OT- Hearing Hearing Impaired Assessment OT- Vision Assessment Visual Acuity Glasses All The Time Visual Payan Impaired Diplopia Present Visual Spacial Right Neglect Vision Assessment Decreased peripheral vision right eye>>left eye. Pt Comments complaining of blurred vision with left eye and sees double. M7 OT- IP Mobility and Balance Start: 11/07/25 09:45 Freq: Status: Active Protocol: Document 11/07/25 09:45 [facility] (Rec: 11/07/25 10:04 [facility] Desktop) OT-Transfer Assessment Sit to and From Stand Sit to and from Standby Assistance Stand Transfers Transfer Ability Standby Assistance Technique Transfer Destination Chair Devices Transfer Assistive Gait Belt,Front Wheeled Walker Devices Comments Mobility Comments BP sitting 144/57 and standing 147/53, pt complaining of feeling dizzy and SOB. O2 on RA 91-95%. Close SBA with FWW and assist to manage the IV pole. OT- Balance Assessment Sitting Balance and Reactions Static Sitting Normal Balance Ability Dynamic Sitting Good Balance Ability Standing Balance and Reactions Static Standing Fair Balance Ability Dynamic Standing Fair Balance Ability M8 OT- IP Objective Assessments Start: 11/07/25 09:45 Freq: Status: Active Protocol: Document 11/07/25 09:45 [facility] (Rec: 11/07/25 10:04 [facility] Desktop) OT Gross Range of Motion Upper Extremity Range of Motion Assessment Right Impaired OT Strength Upper Extremity Strength Assessment Right Impaired Shoulder 2+ Elbow 4- Hand 3+ Comments Strength Comments Per pt has a torn rotator cuff for right UE. OT Sensation Assessment Location Right Upper Extremity Light Touch Impaired Proprioception ( Impaired Position) Tactile Localization Impaired M9 OT- IP Assessment and Plan Start: 11/07/25 09:45 Freq: Status: Active Protocol: Document 11/07/25 09:45 [facility] (Rec: 11/07/25 10:04 [facility] Desktop) OT Summary Assessment and Plan Potential Rehabilitation Good Potential Analytic Complexity Low at Evaluation Summary OT Impairments Strength,Balance,Functional Cognition,Functional Mobility,Dressing,Toileting,Bathing,Toilet Transfers, Shower Transfers,Activity Tolerance Progress Towards Progressing Toward Goals,Slow Progress due to Activity Goals Tolerance Assessment Summary Pt low complexity and main barriers are feeling dizzy, SOB, a bit impulsive, decreased peripheral vision R >>L eye, seeing double with left eye, and decreased activity tolerance. Pt has assistance at home approx 8 hours a day from Thursday-Thursday, and has Life Alert. When medically stable pt will benefit from 24/7 available assist and home health. Goals Self-Feeding Goal Independent Grooming Goal Independent Dressing Goal Independent Toileting Goal Independent Bathing Goal Minimal Assistance Toilet Transfer Goal Independent Shower Transfer Goal Standby Assistance Days to Meet Goals 10 Treatment Plan OT Treatment Plan ADL Training,Functional Cognition Training,Functional Mobility,Vision Retraining,Patient/Family Education, Discharge Planning Other Treatment Pt to be able to to incorporate visual techniques to Recommendations and increase safety to prevent falls for ADL mobility needs Next Treatment Focus . Discharge Recommendations OT Discharge Home with 24/7 Assist Available,Home Health Recommendations Transportation Needs Private Vehicle at Discharge
--- NOTE | 2025-11-07 10:44 | CM.DPNOTE ---
DCP Continued: Reviewed EMR and team rounds for pt?s medical status. Per hosptialist, pt's MRI is negative for CVA but still exhibiting CVA symptoms of dizziness and visual impairments. Patient NIH is 6. Hospitalist plans to re-scan pt neck and consult with Neurosurgery again, possible transfer to higher level of care. No discharge needs identified at this time. Plan: Anticipating discharge home with caregivers/family vs. transfer to higher level of care. CM Team will continue to follow for coordination of discharge plans. YISSEL Durham
--- NOTE | 2025-11-07 12:40 | DI.MRI.S_ITS ---
PROCEDURE: MR CERVICAL SPINE WO CON INDICATIONS: Dense right-sided hemiplegia TECHNIQUE: Noncontrast sagittal T1 spin echo and T2 fast spin echo, sagittal STIR, foraminal oblique sagittal T2 fast spin echo, and axial gradient echo or T2 fast spin echo through the cervical spine. COMPARISON: None. FINDINGS: Study is limited by motion artifact throughout the exam Alignment and Curvature: Straightening Bone Marrow: Marrow demonstrates normal overall signal. Spinal Cord: Visualized spinal cord has normal size and signal. No cerebellar tonsillar herniation. Paraspinous Soft Tissues: No paravertebral masses. Prevertebral soft tissues are normal in thickness. C2-C3: No central or foraminal stenosis C3-C4: Disc osteophyte. Mild central stenosis. Arthropathy. Moderate left and mild right foraminal stenosis C4-C5: Disc osteophyte and arthropathy. Moderate central stenosis. Moderate left and mild right foraminal stenosis. C5-C6: Disc osteophyte and arthropathy. [id number]-[id number] central stenosis. Mild bilateral foraminal stenosis. C6-C7: Disc osteophyte and arthropathy. Moderate central stenosis. Moderate left and mild right foraminal stenosis C7-T1: No central or foraminal stenosis IMPRESSION: Multilevel degenerative disc disease and arthropathy results in varying degrees of central and foraminal stenosis including moderate central stenosis C4-5 and C6-7 Study is limited by motion artifact, however no evidence of intrinsic cord lesion Approved by: Piyush Rivera M.D. on 11/07/2025 at 15:17
--- NOTE | 2025-11-07 14:35 | PT-IP ANOTE ---
Attempted PT evaluation, pt not in room. Per [employer] out for scans. Will continue to follow as able.
[2025-11-07] MEDS: ATORVASTATIN 20 MG TABLET 80 MG PO (20:00)
[2025-11-08] VITALS (9 sets, daily range): BP systolic 125–178; BP diastolic 54–69; PULSE 74–94; RESP 16–20; TEMP 36.1–36.5; O2SAT 96–98
--- NOTE | 2025-11-08 07:56 | P.PN_ITS ---
Subjective Subjective Interval history: Summary: This is a 65-year-old female with a history of diabetes mellitus, chronic narcotic dependence, insomnia, CHF, chronic pain, CVA, [place], hepatic steatosis, seizures, PUD, PTSD, depression, osteoarthritis, GERD, hypertension, hyperlipidemia, asthma, CAD and COPD who presents with apparent recurrent stroke. On September 12 she had a stroke involving right sided dense hemiparesis and visual changes that was treated with tNK and transferred to [facility] where the stroke team treated her. She required no further intervention. She had some residual right-sided symptoms, it is hard to say how much, but has been at home since then. For the last week she has felt intermittent dizziness with vertigo and inability to stand/support herself with the right leg. She was dropping her coffee cup when holding in the right hand. Earlier this morning she fell down and had to have her caregivers come and bring her to the hospital. Her right side feels heavy. On exam she has quite severe right-sided weakness along with slurred speech. CT head and CTA head/neck were normal in August and are normal again today. MRI is pending. On my exam at 4:45 her stroke scale is 6. She has drift in the right arm, drift in the right leg, ataxia in the right upper extremity and minor facial palsy. She is taking her cilostazol full-dose since the stroke. She just finished a short course of prednisone for a COPD exacerbation. She has no significant shortness breath or wheezing at this time. S: She primarily describes recurrent vertigo which is positional. No headache. Perhaps some intermittent diplopia. Imaging has been negative. She does describe chronic right arm weakness since being thrombolysis 2 months ago. O: T 97.0?, BP 175/61, pulse 86, respiration 16, SpO2 98% 0 L. NAD, alert and oriented. Fluent speech. Lungs are clear, normal rate and effort. Heart is regular, no murmur gallop or rub. Abdomen is soft, non distended. Extremities are free of edema. No nystagmus, mild right arm weakness which she states is chronic. ECG: Intervals [place] Rate: 98 P: 41 NM: 128 QRS: 53 QRSD: 76 T: 62 QT: 350 QTc: 446 Interpretive Statements Normal sinus rhythm IMAGING: Head and neck CTA: No significant intracranial arterial abnormality is seen. No significant abnormality is seen within the arteries of the neck. Chest x-ray: No acute cardiopulmonary abnormality is seen. Head CT: No acute intracranial pathology. Brain MRI: IMPRESSION: MRI brain without acute intracranial abnormalities. No evidence for acute ischemic changes. No evidence for mass or mass effect. Redemonstration of age r Cervical spine MRI: Multilevel degenerative disc disease and arthropathy results in varying degrees of central and foraminal stenosis including moderate central stenosis C4-5 and C6-7 Echo: Technically difficult study secondary to poor acoustic windows. Intracardiac echo contrast was utilized. - The left ventricular contractility is normal. Estimated ejection fraction is greater than 60% with no segmental wall motion abnormalities. No LVH. Normal diastolic function. - The right ventricular contractility is normal. - The right atrium is not well-visualized. All other cardiac chambers appears to be normal in size. - While the valves were not well-visualized. Doppler interrogation did not demonstrate any significant insufficiency nor stenoses. - No obvious intracardiac shunts. - No obvious intracardiac masses nor thrombi. - No hemodynamically significant pericardial effusion. Conclusion: Normal biventricular function with no obvious valvular abnormalities. When compared with previous echocardiogram, no significant changes have occurred. Assessment and plan: 1. Positional vertigo and possible new on chronic mild right-sided weakness. Active. -TNK treatment for acute onset CVA 09/12. -presenting symptoms were right-sided weakness and dizziness -NIH score 6 with right-sided weakness and unclear recently established post stroke baseline. -repeat echocardiogram pending -No changes on brain MRI, per discussions with [employer] Radiologist and with Dr. Leyva at [facility] -Cervical Spine MRI without any explanatory lesion -PT and OT evaluations. Speech therapy evaluation. -continue Plavix, cilostazol, atorvastatin -holding amlodipine, hydrochlorothiazide and losartan for permissive hypertension X 24-48 hours. -per [facility] neurologist discussions on 11/07 patient is likely to have 2 or 3 unrelated conditions causing her symptoms. Since there is no occipital or other cerebral lesion to explain the visual changes she likely has diabetic eye disease accounting for her visual field loss. Since there is no clear lesion to explain the flare or worsening of right-sided weakness this is likely a decompensation from some other brett-neurologic or other metabolic process that is not immediately evident. The vertigo may be that process, perhaps something such as labyrinthitis? -the recommendation is for inpatient rehab or intensive outpatient physical therapy to recover back to her baseline more moderated right-sided weakness. 2. Diabetes mellitus type 2, present on admission. Active. -holding metformin, using medium dose lispro correctional scale. Follow blood sugars. 3. CAD, present on admission. Chronic. -continue Lipitor, Plavix. -continue carvedilol, Losartan and Amlodipine -no stroke found, so no reason for permissive hypertension. 4. COPD, present on admission. Chronic. -recently completed a prednisone taper and is now without any acute symptoms. -continue albuterol and other inhalers. 5. Hypertension, present on admission. Chronic. -blood pressure normal on admission. -resume carvedilol, losartan, amlodipine, hydrochlorothiazide 6. Anxiety/depression/PTSD, present on admission. Chronic. -continue trazodone and Zoloft. PLAN: -continue current medications. -meclizine for vertigo -PT, trying to find inpatient rehab. Enoxaparin for DVT prevention Clarify backup decision maker. Disposition: Per discussion with Neurology recommend inpatient rehab, or less ideal, but alternatively an outpatient intensive PT program. Exam Vital Signs (past 8 hours): - 11/08/25 04:00 Temperature 97.3 F L Pulse Rate 86 Respiratory Rate 18 Blood Pressure 154/61 H Pulse Oximetry 97 Oxygen Flow Rate 0 Oxygen Delivery Method Room Air Oxygen Flow Rate 0 Objective Labs 11/06/25 12:35 11/06/25 12:35 Labs: Laboratory Results - last 24 hr 11/07/25 11/07/25 11/07/25 08:32 11:54 16:37 POC Whole Bld Glucose 116 H 113 H 97 11/07/25 19:52 POC Whole Bld Glucose 147 H [facility] Medical History DM2 (diabetes mellitus, type 2) Chronic narcotic dependence Insomnia CHF (congestive heart failure) Chronic pain History of CVA (cerebrovascular accident) Myocardial infarction Hepatic steatosis Drug-seeking behavior Seizures Peptic ulcer disease PTSD (post-traumatic stress disorder) Depression Easy bruisability Osteoarthritis GERD (gastroesophageal reflux disease) HLD (hyperlipidemia) HTN (hypertension) Asthma Hearing loss Prediabetes Other chronic pain Tinea pedis Pain in right hip Anxiety Coronary artery disease COPD (chronic obstructive pulmonary disease) Stroke (1999) Surgical History Hx of colonoscopy Hx of tonsillectomy History of surgery on wrist History of bilateral knee replacement Social History household members: caregiver and none Smoking Status: Former smoker alcohol intake: never Assessment & Plan Time-Based Coding :: [TOTAL MINUTES] spent with patient and on the chart (including review of chart, obtaining history, exam, reviewing outside data, placing orders, documenting exam and treatment plan, and counseling patient) on [DATE]. Quality VTE Deep Vein Thrombosis/Pulmonary Embolism Present on Admission: No
[2025-11-08] MEDS: LIDOCAINE 5% PATCH 1 EACH TOP (08:25)
[2025-11-08] MEDS: ENOXAPARIN 40 MG/0.4 ML SYRINGE SUBCUT (08:25)
[2025-11-08] MEDS: LOSARTAN 50 MG TABLET 100 MG PO (08:26)
[2025-11-08] MEDS: CLOPIDOGREL 75 MG TABLET PO (08:26)
[2025-11-08] MEDS: SERTRALINE 50 MG TABLET PO (08:26)
[2025-11-08] MEDS: BUDESONIDE 0.5 MG/2 ML NEB INH ×2 (09:49→20:05)
[2025-11-08] MEDS: ALBUTEROL 2.5 MG/3 ML NEB (ADULT) INH ×3 (09:49→20:05)
[2025-11-08] MEDS: ONDANSETRON 4 MG/2 ML INJ IV (09:51)
--- NOTE | 2025-11-08 10:37 | PT.IIE ---
Surgical History (Last Reviewed 10/24/25 @ 15:34 by Danya Rothman PA-C) History of bilateral knee replacement History of surgery on wrist Hx of colonoscopy Hx of tonsillectomy Medical History (Last Reviewed 10/24/25 @ 15:34 by Danya Rothman PA-C) Anxiety Asthma CHF (congestive heart failure) Chronic narcotic dependence Chronic pain COPD (chronic obstructive pulmonary disease) Coronary artery disease Depression DM2 (diabetes mellitus, type 2) Drug-seeking behavior Easy bruisability GERD (gastroesophageal reflux disease) Hearing loss Hepatic steatosis History of CVA (cerebrovascular accident) HLD (hyperlipidemia) HTN (hypertension) Insomnia Myocardial infarction Osteoarthritis Other chronic pain Pain in right hip Peptic ulcer disease Prediabetes PTSD (post-traumatic stress disorder) Seizures Stroke (1999) Tinea pedis Physical Therapy Inpatient Evaluation/Re-Eval M1 PT IP Prior Functional Status Start: 11/08/25 10:09 Freq: NEEDED Status: Active Protocol: Document 11/08/25 10:10 NW (Rec: 11/08/25 10:36 NW [id number]) Medical Review Prior Functional Status Communication I but has short term memory deficits. Mobility and Gait Pt uses a 4ww to get around with and electric scooter for outdoors. Baseline after stroke is ambulating 10-20 ft in single bout. Activities of Daily Pt needs assist with BADL's mainly for LB dressing and Living and IADL's showering needs in addition to IADL needs. Prior Functional Pt has caregivers that assist for approx 8 hours for 5 Level (Other details days and no assist on the weekends. 2 daughters live 2 ) blocks away and cousin lives across the street. Social History Household Members caregiver,none Living Arrangements House Number of Floors ( One Floor Floors) Home Environment Standard Height Toilet,Walk in Shower Home Equipment Four Wheel Walker,Straight Cane,Power Wheelchair/ Scooter,Raised Toilet Seat w/Armrests,Shower Seat without Backrest,Hand Held Shower,Chief Privacy Officer,Lift Recliner ,Hospital Bed,Grab Bars Near Toilet,Grab Bars In Shower M2 PT-IP Current Condition Start: 11/08/25 10:09 Freq: NEEDED Status: Active Protocol: Document 11/08/25 10:10 NW (Rec: 11/08/25 10:36 NW [id number]) Physical Therapy Current Condition Current Condition Evaluation Date 11/08/25 Treatment Diagnosis Dizziness, Vestib Hypofxn R Onset Date 11/06/25 M3 PT-IP Subjective Start: 11/08/25 10:09 Freq: NEEDED Status: Active Protocol: Document 11/08/25 10:10 NW (Rec: 11/08/25 10:36 NW [id number]) Subjective Physical Therapy Visit Type Type Initial Evaluation Visit Start Time 09:03 Visit Stop Time 09:45 Notes 42 min Physical Therapy Visit Comments Patient Comments Wants to return home to her cat. Patient Goals Why is she dizzy. M4 PT-IP Mobility and Gait Start: 11/08/25 10:09 Freq: NEEDED Status: Active Protocol: Document 11/08/25 10:10 NW (Rec: 11/08/25 10:36 NW [id number]) PT-Transfer Assessment Sit to and From Stand Sit to and from Standby Assistance Stand Equipment Transfer Assistive Front Wheeled Walker Device Transfers Transfer Destination Chair Transfer Technique Stand Step Pivot Transfer Ability Level of Assist Standby Assistance Comments Mobility Comments Good power production and UE placement without cues needed. Gait Assessment Gait Gait Assistance Standby Assistance Required: Distance (Feet) 25 Able to Maintain Yes Weight Bearing Status During Gait Assistive Devices Assistive Device Front Wheeled Walker Gait Deviations General Gait Pattern Decreased Stride Length,Decreased Feet Clearance,Step- to Gait Factors Limiting Gait Function Factors Limiting Decreased Activity Tolerance,Decreased Sensation, Gait Function Decreased Strength,Poor Balance Comments Gait Comments Ambulated with decreased R stride length and step to with RLE to LLE. Variable R foot clearance. PT-Balance Assessment Sitting Balance and Reactions Static Sitting Normal Balance Ability Dynamic Sitting Good Balance Ability Standing Balance and Reactions Static Standing Fair Balance Ability Dynamic Standing Poor Balance Ability Device Used FWW for dynamic standing balance Balance Tests Romberg able to maintain eyes open 30 sec, EC < 10 sec Comments Other Balance Tests/ Pt has increase in dizziness with EC balance assessment Deviations/Treatment . : M5 PT-IP Objective Assessments Start: 11/08/25 10:09 Freq: NEEDED Status: Active Protocol: Document 11/08/25 10:10 NW (Rec: 11/08/25 10:36 NW [id number]) Orientation Orientation/Cognition Level of Alertness Alert Orientation Name,Age,Birthday,Month,Date,Year,Place,Situation Language Function Hard of Hearing Ability Comments Impulsive at times, challenged to stay on task. Gross Range of Motion Lower Extremity ROM Assessment Within Functional Limits Strength Lower Extremity Strength Assessment Right Impaired Hip 2/5 Knee Ext 2-/5, flex 2/5 Ankle DF 3/5, PF 2/5 Coordination Assessment Assessment Heel on Albert Test Moderate Impairment Coordination with RLE impaired Comments Sensation Assessment Sensation Gross Sensation Right UE Impaired,Right LE Impaired Light Touch Impaired Proprioception ( Impaired Position) Sensation Numbness Description Muscle Tone Comments Muscle Tone Comments 1+ MAD on RLE with catch and release with minimal rigidity through remaining ROM Other Assessments Other Other Assessments Vision screen: able to fixate on object (notes double vision), over shooting with saccades to R, good smooth pursuit within small ROM available, decreased peripheral vision R>L, no EROM nystagmus noted bilateral without visual fixation, + hints to R, negative modified mel hallpike planes. No nystagmus noted secondary to ability to fixate visually. + for R vestibular hypofunction. 4 Item DGI: 07/11 deeming pt falls risk M6 PT-IP Treatment Start: 11/08/25 10:09 Freq: NEEDED Status: Active Protocol: Document 11/08/25 10:10 NW (Rec: 11/08/25 10:36 NW [id number]) Physical Therapy Treatment Education Education Provided Safety Other Treatments Other Treatment Education on recommendation to have someone present at Performed all times for out of bed mobility. M7 PT-IP Assessment and Plan Start: 11/08/25 10:09 Freq: NEEDED Status: Active Protocol: Document 11/08/25 10:10 NW (Rec: 11/08/25 10:36 NW [id number]) PT Summary Assessment and Plan Potential Rehabilitation Fair Potential Status of Condition Evolving at Evaluation Summary Impairments Strength,Balance,Coordination,Sensation,Cognition, Transfers,Gait,Activity Tolerance Progress Towards Progressing Toward Goals Goals Assessment Summary Cira is a 65 yr old female hospitalized secondary to dizziness thought to be recurrent stroke. Pt has had no pertinent findings with all imaging to support recurrent stroke as pt had a L CVA with residual R sided weakness and visual field cuts in August of 2025 . At baseline pt utilizes 4WW to ambulate short house hold distances and an electric scooter within the community. Pt is SBA for transfers, stable orthostatics , and gait of 25 ft with FWW over 2 trials with no obvious signs of exertion. Pt is positive for R sided hypofunction with mixed central signs possibly secondary to previous stroke. 4 Item DGI score of 8/12 deems pts a falls risk with emphasis on vestibular involvement. Due to pts possible cognitive impairments pt requires several times to be re-directed within the session. Recommending home health upon discharge and 24 /7 support at home from family and additional caregiver support. Goals Transfer Goal Independent,Front Wheeled Walker Gait Goal Standby Assistance,Four Wheel Walker Gait Distance 50 ft Other Goals Pt will score > 9/12 for 4 item DGI. Pt will be independent in habituation exercises to focus on DVA impairment. Treatment Plan Physical Therapy Transfer Training,Gait Training,Balance Retraining, Treatment Plan Discharge Planning,Neuromuscular Re-ed,Coordination Retraining Recommendations To Nursing Amount of Assist Standby Assistance,1 Person Assist Needed Discharge Recommendations PT Discharge Home with 24/7 Assist Available Recommendations Transportation Needs Private Vehicle at Discharge - PT assist 1
--- NOTE | 2025-11-08 10:43 | OT.IP.TRT ---
Occupational Therapy Treatment Note M2 OT-IP Current Condition Start: 11/07/25 09:45 Freq: Status: Active Protocol: Document 11/07/25 09:45 [facility] (Rec: 11/07/25 10:04 [facility] Desktop) Occupational Therapy Current Condition Current Condition Evaluation Date 11/07/25 Treatment Diagnosis Neuro symptoms, RUE weakness Diagnosis Onset Date 11/06/25 M3 OT- IP Subjective and Pain Start: 11/07/25 09:45 Freq: Status: Active Protocol: Document 11/08/25 10:47 [facility] (Rec: 11/08/25 11:03 [facility] Desktop) OT- Subjective Occupational Therapy Visit Type Type Treatment Note Visit Start Time 10:15 Visit Stop Time 10:41 Occupational Therapy Visit Comments Patient Comments Pt not wanting to get up as very dizzy and just having medication. Pt agreed to do SLUMS and FMS. Patient/Caregiver Pt is adamant to go home as wanting to be with her cat. Goals M4 OT- IP ADL's Start: 11/07/25 09:45 Freq: Status: Active Protocol: Document 11/07/25 09:45 [facility] (Rec: 11/07/25 10:04 [facility] Desktop) OT [id number] Comments OT Self-Feeding Not at meal time. Comments OT ADL-Grooming General Evaluation Grooming Ability Independent Comments OT Grooming Comments Able to do while standing at sink with FWW. OT ADL-Oral Care General Eval Oral Care Ability Independent OT ADL-Dressing General Eval Lower Body Dressing Maximum Assistance Ability Comments OT Dressing Comments Able to practice of freight agent and sock aid to help with independence with LB dressing needs. Pt will benefit from getting a sock aid. OT ADL-Toileting Comments OT Toileting Pt not having to go at this time. Comments OT ADL-Bathing Comments OT Bathing Comments Pt will continue to benefit from assist for showering needs. M5 OT- IP IADL's Start: 11/07/25 09:45 Freq: Status: Active Protocol: Document 11/07/25 09:45 [facility] (Rec: 11/07/25 10:04 [facility] Desktop) OT-Instrumental Activities of Daily Living Home Safety Awareness Awareness of Need Good Awareness for Assistance at Home Ability to Problem Able to Problem Solve Solve Emergency Situations Meal Preparation Meal Preparation Caregiver Provides Assist Belt Knife Feeder Belt Knife Feeder Caregiver Provides Assist M6 OT- IP Functional Cognition Start: 11/07/25 09:45 Freq: Status: Active Protocol: Document 11/08/25 10:47 [facility] (Rec: 11/08/25 11:03 [facility] Desktop) Cognitive Factors Limiting Selfcare Function Cognitive Ability Level of Alertness Alert Patient Orientation Name,Age,Birthday,Month,Date,Year,Day of Week,Place, Situation Attention Span Capable of Focused Attention,Capable of Sustained Ability Attention Ability to Follow Able to Follow One Step Commands Commands Memory Description Short Term Impaired Cognitive Tests SLUMS Pt scored 23/30 on SLUMS which implies mild neurocognitive disorder. Pt not able to accurately calculate 100-23 (normally pt uses a calculator at home ). Pt able to recall 4/5 objects and able to answer 2/4 questions write after paragraph read. Cognitive Comments Cognitive Assessment Pt still has STM issues. Pt will benefit from 22/06 Comments available assist at home as pt is insistent on going home. Pt having difficulty to use her phone due to visual impairments. Suggested pt make the font larger in which pt was able to figure out on her own. M7 OT- IP Mobility and Balance Start: 11/07/25 09:45 Freq: Status: Active Protocol: Document 11/07/25 09:45 [facility] (Rec: 11/07/25 10:04 [facility] Desktop) OT-Transfer Assessment Sit to and From Stand Sit to and from Standby Assistance Stand Transfers Transfer Ability Standby Assistance Technique Transfer Destination Chair Devices Transfer Assistive Gait Belt,Front Wheeled Walker Devices Comments Mobility Comments BP sitting 144/57 and standing 147/53, pt complaining of feeling dizzy and SOB. O2 on RA 91-95%. Close SBA with FWW and assist to manage the IV pole. OT- Balance Assessment Sitting Balance and Reactions Static Sitting Normal Balance Ability Dynamic Sitting Good Balance Ability Standing Balance and Reactions Static Standing Fair Balance Ability Dynamic Standing Fair Balance Ability M8 OT- IP Objective Assessments Start: 11/07/25 09:45 Freq: Status: Active Protocol: Document 11/08/25 10:47 [facility] (Rec: 11/08/25 11:03 [facility] Desktop) OT Strength Comments Strength Comments Able to give pt theraputty and went over exercises to do with her right hand. M9 OT- IP Assessment and Plan Start: 11/07/25 09:45 Freq: Status: Active Protocol: Document 11/08/25 10:47 [facility] (Rec: 11/08/25 11:03 [facility] Desktop) OT Summary Assessment and Plan Potential Rehabilitation Good Potential Analytic Complexity Low at Evaluation Summary OT Impairments Strength,Balance,Functional Cognition,Functional Mobility,Dressing,Toileting,Bathing,Toilet Transfers, Shower Transfers,Activity Tolerance Progress Towards Progressing Toward Goals,Slow Progress due to Medical Goals Issues Assessment Summary Pt too dizzy to get up to her feet at this time but agreed to do SLUMS scored 23/30 and able to go over right hand exercises with theraputty to help improve her right strength needs. Pt not wanting to go to rehab as fearful of losing her housing and insistent to go home. Therefore pt will benefit from 24/7 available assist and home health versus SNF/Acute. Goals Self-Feeding Goal Independent Grooming Goal Independent Dressing Goal Independent Toileting Goal Independent Toilet Transfer Goal Independent Shower Transfer Goal Standby Assistance Days to Meet Goals 9 Treatment Plan OT Treatment Plan ADL Training,Functional Cognition Training,Functional Mobility,Therapeutic Exercises,Vision Retraining, Patient/Family Education,Discharge Planning Other Treatment shower Recommendations and Next Treatment Focus Discharge Recommendations OT Discharge Home with 24/7 Assist Available,Home Health Recommendations Transportation Needs Private Vehicle at Discharge
[2025-11-08] MEDS: MECLIZINE HCL 12.5 MG TABLET 25 MG PO (14:20)
--- NOTE | 2025-11-08 14:33 | CM.DPC ---
DCP Cont. Reviewed EMR and team rounds for pt's medical status and updates. Pt is still having vertigo, she was starting on a new med today. Likely 1-2 more days before being stable for d/c.
[2025-11-08] MEDS: ATORVASTATIN 20 MG TABLET 80 MG PO (22:03)
[2025-11-09] VITALS (7 sets, daily range): BP systolic 118–147; BP diastolic 66–73; PULSE 86–95; RESP 18–22; TEMP 36.2–36.4; O2SAT 97–98
[2025-11-09] MEDS: ALBUTEROL 2.5 MG/3 ML NEB (ADULT) INH (07:39)
[2025-11-09] MEDS: BUDESONIDE 0.5 MG/2 ML NEB INH (07:47)
--- NOTE | 2025-11-09 09:30 | PM.PN.1 ---
Subjective Subjective Date Patient Seen: 11/09/25 Interval history: This is a 65-year-old female with a history of diabetes mellitus, chronic narcotic dependence, insomnia, CHF, chronic pain, CVA, [place], hepatic steatosis, seizures, PUD, PTSD, depression, osteoarthritis, GERD, hypertension, hyperlipidemia, asthma, CAD and COPD who presents with apparent recurrent stroke. On September 12 she had a stroke involving right sided dense hemiparesis and visual changes that was treated with tNK and transferred to [facility] where the stroke team treated her. She required no further intervention. She had some residual right-sided symptoms, it is hard to say how much, but has been at home since then. For the last week she has felt intermittent dizziness with vertigo and inability to stand/support herself with the right leg. She was dropping her coffee cup when holding in the right hand. Earlier this morning she fell down and had to have her caregivers come and bring her to the hospital. Her right side feels heavy. On exam she has quite severe right-sided weakness along with slurred speech. CT head and CTA head/neck were normal in August and are normal again today. MRI is pending. On my exam at 4:45 her stroke scale is 6. She has drift in the right arm, drift in the right leg, ataxia in the right upper extremity and minor facial palsy. She is taking her cilostazol full-dose since the stroke. She just finished a short course of prednisone for a COPD exacerbation. She has no significant shortness breath or wheezing at this time. S: She primarily describes recurrent vertigo which is positional. No headache. Perhaps some intermittent diplopia. Imaging has been negative. She does describe chronic right arm weakness since being thrombolysis 2 months ago. O: T 97.0?, BP 175/61, pulse 86, respiration 16, SpO2 98% 0 L. NAD, alert and oriented. Fluent speech. Lungs are clear, normal rate and effort. Heart is regular, no murmur gallop or rub. Abdomen is soft, non distended. Extremities are free of edema. No nystagmus, mild right arm weakness which she states is chronic. ECG: Intervals [place]ossom Rate: 98 P: 41 [place]: 128 QRS: 53 QRSD: 76 T: 62 QT: 350 QTc: 446 Interpretive Statements Normal sinus rhythm IMAGING: Head and neck CTA: No significant intracranial arterial abnormality is seen. No significant abnormality is seen within the arteries of the neck. Chest x-ray: No acute cardiopulmonary abnormality is seen. Head CT: No acute intracranial pathology. Brain MRI: IMPRESSION: MRI brain without acute intracranial abnormalities. No evidence for acute ischemic changes. No evidence for mass or mass effect. Redemonstration of age r Cervical spine MRI: Multilevel degenerative disc disease and arthropathy results in varying degrees of central and foraminal stenosis including moderate central stenosis C4-5 and C6-7 Echo: Technically difficult study secondary to poor acoustic windows. Intracardiac echo contrast was utilized. - The left ventricular contractility is normal. Estimated ejection fraction is greater than 60% with no segmental wall motion abnormalities. No LVH. Normal diastolic function. - The right ventricular contractility is normal. - The right atrium is not well-visualized. All other cardiac chambers appears to be normal in size. - While the valves were not well-visualized. Doppler interrogation did not demonstrate any significant insufficiency nor stenoses. - No obvious intracardiac shunts. - No obvious intracardiac masses nor thrombi. - No hemodynamically significant pericardial effusion. Conclusion: Normal biventricular function with no obvious valvular abnormalities. When compared with previous echocardiogram, no significant changes have occurred. Assessment and plan: 1. Positional vertigo and possible new on chronic mild right-sided weakness. Active. -TNK treatment for acute onset CVA 09/12. -presenting symptoms were right-sided weakness and dizziness -NIH score 6 with right-sided weakness and unclear recently established post stroke baseline. -repeat echocardiogram pending -No changes on brain MRI, per discussions with JOURNAL[employer] INSTRUCTOR Radiologist and with Dr. Leyva at [facility] -Cervical Spine MRI without any explanatory lesion -PT and OT evaluations. Speech therapy evaluation. -continue Plavix, cilostazol, atorvastatin -holding amlodipine, hydrochlorothiazide and losartan for permissive hypertension X 24-48 hours. -per [facility] neurologist discussions on 11/07 patient is likely to have 2 or 3 unrelated conditions causing her symptoms. Since there is no occipital or other cerebral lesion to explain the visual changes she likely has diabetic eye disease accounting for her visual field loss. Since there is no clear lesion to explain the flare or worsening of right-sided weakness this is likely a decompensation from some other brett-neurologic or other metabolic process that is not immediately evident. The vertigo may be that process, perhaps something such as labyrinthitis? -the recommendation is for inpatient rehab or intensive outpatient physical therapy to recover back to her baseline more moderated right-sided weakness. 2. Diabetes mellitus type 2, present on admission. Active. -holding metformin, using medium dose lispro correctional scale. Follow blood sugars. 3. CAD, present on admission. Chronic. -continue Lipitor, Plavix. -continue carvedilol, Losartan and Amlodipine -no stroke found, so no reason for permissive hypertension. 4. COPD, present on admission. Chronic. -recently completed a prednisone taper and is now without any acute symptoms. -continue albuterol and other inhalers. 5. Hypertension, present on admission. Chronic. -blood pressure normal on admission. -resume carvedilol, losartan, amlodipine, hydrochlorothiazide 6. Anxiety/depression/PTSD, present on admission. Chronic. -continue trazodone and Zoloft. PLAN: -continue current medications. -meclizine for vertigo -PT, trying to find inpatient rehab. Enoxaparin for DVT prevention Clarify backup decision maker. Disposition: Per discussion with Neurology recommend inpatient rehab, or less ideal, but alternatively an outpatient intensive PT program. Exam Vital Signs (past 8 hours): - 11/09/25 05:00 11/09/25 07:39 11/09/25 08:06 Temperature 97.1 F L 97.2 F L Pulse Rate 95 H 86 88 Respiratory Rate 18 20 20 Blood Pressure 131/68 147/73 H Pulse Oximetry 97 98 98 Oxygen Delivery Method Room Air Oxygen Flow Rate 0 Oxygen Delivery Method Room Air Oxygen Flow Rate 0 Objective Labs 11/06/25 12:35 11/06/25 12:35 Labs: Laboratory Results - last 24 hr 11/08/25 11/08/25 11/08/25 11:39 16:30 21:35 POC Whole Bld Glucose 124 H 115 H 106 H 11/09/25 08:00 POC Whole Bld Glucose 117 H [facility] Medical History DM2 (diabetes mellitus, type 2) Chronic narcotic dependence Insomnia CHF (congestive heart failure) Chronic pain History of CVA (cerebrovascular accident) Myocardial infarction Hepatic steatosis Drug-seeking behavior Seizures Peptic ulcer disease PTSD (post-traumatic stress disorder) Depression Easy bruisability Osteoarthritis GERD (gastroesophageal reflux disease) HLD (hyperlipidemia) HTN (hypertension) Asthma Hearing loss Prediabetes Other chronic pain Tinea pedis Pain in right hip Anxiety Coronary artery disease COPD (chronic obstructive pulmonary disease) Stroke (1999) Surgical History Hx of colonoscopy Hx of tonsillectomy History of surgery on wrist History of bilateral knee replacement Social History household members: caregiver and none Smoking Status: Former smoker alcohol intake: never Assessment & Plan Time-Based Coding :: [TOTAL MINUTES] spent with patient and on the chart (including review of chart, obtaining history, exam, reviewing outside data, placing orders, documenting exam and treatment plan, and counseling patient) on [DATE]. Quality VTE Deep Vein Thrombosis/Pulmonary Embolism Present on Admission: No
[2025-11-09] MEDS: LOSARTAN 50 MG TABLET 100 MG PO (09:50)
[2025-11-09] MEDS: CLOPIDOGREL 75 MG TABLET PO (09:50)
[2025-11-09] MEDS: ONDANSETRON 4 MG/2 ML INJ IV (09:51)
[2025-11-09] MEDS: ENOXAPARIN 40 MG/0.4 ML SYRINGE SUBCUT (09:52)
[2025-11-09] MEDS: SERTRALINE 50 MG TABLET PO (10:08)
--- NOTE | 2025-11-09 10:13 | PM.DS.1 ---
History of Present Illness History of Present Illness Date Patient Seen: 11/09/25 Time Patient Seen: 10:13 Chief complaint: Light headed , 7 days Narrative: This is a 65-year-old female with a history of diabetes mellitus, chronic narcotic dependence, insomnia, CHF, chronic pain, CVA, VA, hepatic steatosis, seizures, PUD, PTSD, depression, osteoarthritis, GERD, hypertension, hyperlipidemia, asthma, CAD and COPD who presents with apparent recurrent stroke. On September 12 she had a stroke involving right sided dense hemiparesis and visual changes that was treated with tNK and transferred to [facility] where the stroke team treated her. She required no further intervention. She had some residual right-sided symptoms, it is hard to say how much, but has been at home since then. For the last week she has felt intermittent dizziness with vertigo and inability to stand/support herself with the right leg. She was dropping her coffee cup when holding in the right hand. Earlier this morning she fell down and had to have her caregivers come and bring her to the hospital. Her right side feels heavy. On exam she has quite severe right-sided weakness along with slurred speech. CT head and CTA head/neck were normal in August and are normal again today. MRI is pending. On my exam at 4:45 her stroke scale is 6. She has drift in the right arm, drift in the right leg, ataxia in the right upper extremity and minor facial palsy. She is taking her cilostazol full-dose since the stroke. She just finished a short course of prednisone for a COPD exacerbation. She has no significant shortness breath or wheezing at this time. Discharge Providers Provider Date of admission: 11/06/25 16:29 Discharge Date: 11/09/25 Primary care physician: Nahomi Hoffman MD Consults: 11/06/25 16:03 Consult to Occupational Therapy Evaluate & Treat Comment: Physician Instructions: Evaluate and treat Consult to Physical Therapy Evaluate & Treat Comment: Physician Instructions: Evaluate and Treat 11/06/25 20:42 Consult to Pastoral Services Routine Comment: per pt request Discharge provider: Michael Hong MD Summary Hospital Course Hospital Course: In conclusion: Right-sided weakness is felt to be near baseline, perhaps exacerbated by labyrinthitis. New CVA was ruled out. PT/OT reported she is appropriate for outpatient PT/OT. She was not hypotensive with orthostasis. She did not qualify for inpatient rehab. She declines both outpatient PT/OT and home health OT/PT. She has her reasons. She agrees to work at the [facility] [employer] to try and regain some right-sided function but says what she was doing at home with home health was not working. Meclizine trial was unsuccessful for the vertigo. This appears to be a primary [employer] problem related to her old stroke? Orthostatic hypotension, since her symptoms seem to be worsened by standing/walking, was ruled out. Positional vertigo and possible new on chronic mild right-sided weakness. -TNK treatment for acute onset CVA 09/12. -presenting symptoms were right-sided weakness and dizziness -NIH score 6 with right-sided weakness and unclear recently established post stroke baseline. -repeat echocardiogram pending -No changes on brain MRI, per discussions with [employer] Radiologist and with Dr. Leyva at [facility] -Cervical Spine MRI without any explanatory lesion -PT and OT evaluations. Speech therapy evaluation. -continue Plavix, cilostazol, atorvastatin -resumed amlodipine, hydrochlorothiazide and losartan after CVA ruled out. -per [facility] neurologist discussions on 11/07 patient is likely to have 2 or 3 unrelated conditions causing her symptoms. Since there is no occipital or other cerebral lesion to explain the visual changes she likely has diabetic eye disease accounting for her visual field loss. Since there is no clear lesion to explain the flare or worsening of right-sided weakness this is likely a decompensation from some other brett-neurologic or other metabolic process that is not immediately evident. The vertigo may be that process, perhaps something such as labyrinthitis? Did not respond to Meclizine. -she declined outpatient rehab, home health rehab. Did not qualify for inpatient rehab. She agrees to do right extremity strengthening exercises at the [facility] [facility] [employer]. Diabetes mellitus type 2, present on admission. -holding metformin, using medium dose lispro correctional scale. CAD, present on admission. -continue Lipitor, Plavix. -continue carvedilol, Losartan and Amlodipine -no stroke found, so no reason for permissive hypertension. 4. COPD, present on admission. Chronic. -recently completed a prednisone taper and is now without any acute symptoms. -continue albuterol and other inhalers. 5. Hypertension, present on admission. Chronic. -blood pressure normal on admission. -resumed carvedilol, losartan, amlodipine, hydrochlorothiazide 6. Anxiety/depression/PTSD, present on admission. Chronic. -continue trazodone and Zoloft. Status at Discharge Cognitive/behavioral status at discharge: at baseline, oriented Functional status at discharge: uses cane/walker Overall status at discharge: patient is progressing back to baseline Time Spent with Patient Time spent: Greater than 30 minutes Exam Vital Signs (past 8 hours): - 11/09/25 05:00 11/09/25 07:39 11/09/25 07:47 Temperature 97.1 F L Pulse Rate 95 H 86 94 H Respiratory Rate 18 20 22 Blood Pressure 131/68 Pulse Oximetry 97 98 Oxygen Delivery Method Room Air Room Air Oxygen Flow Rate 0 11/09/25 08:06 11/09/25 09:50 11/09/25 09:51 Temperature 97.2 F L Pulse Rate 88 Respiratory Rate 20 Blood Pressure 147/73 H 147/73 H 147/73 H Pulse Oximetry 98 Oxygen Delivery Method Oxygen Flow Rate Oxygen Delivery Method Room Air Oxygen Flow Rate 0 Narrative Exam Narrative: Alert and oriented x3. Very talkative. Somewhat tangential. Heart is regular rate and rhythm without murmur. Lungs are clear to auscultation bilaterally. Right upper extremity and lower extremity function continues to be 1-2/5. There is no ankle edema. Objective Labs 11/06/25 12:35 11/06/25 12:35 Labs: Laboratory Results - last 24 hr 11/08/25 11/08/25 11/08/25 11:39 16:30 21:35 POC Whole Bld Glucose 124 H 115 H 106 H 11/09/25 08:00 POC Whole Bld Glucose 117 H [facility] Medical History DM2 (diabetes mellitus, type 2) Chronic narcotic dependence Insomnia CHF (congestive heart failure) Chronic pain History of CVA (cerebrovascular accident) Myocardial infarction Hepatic steatosis Drug-seeking behavior Seizures Peptic ulcer disease PTSD (post-traumatic stress disorder) Depression Easy bruisability Osteoarthritis GERD (gastroesophageal reflux disease) HLD (hyperlipidemia) HTN (hypertension) Asthma Hearing loss Prediabetes Other chronic pain Tinea pedis Pain in right hip Anxiety Coronary artery disease COPD (chronic obstructive pulmonary disease) Stroke (1999) Surgical History Hx of colonoscopy Hx of tonsillectomy History of surgery on wrist History of bilateral knee replacement Social History household members: caregiver and none Smoking Status: Former smoker alcohol intake: never Discharge Plan Discharge Plan Patient Disposition: Home Provider Discharge Comment: Follow up with Dr. Hoffman in 1 week. Discharge orders & Medications Prescriptions: New oxycodone 5 mg tablet 5 mg PO Q6H PRN (Reason: pain) Qty: 30 0RF Continued (DME) True Metrix Glucose Test Strip Strip See Rx Instructions .Route Qty: 100 2RF Rx Instructions: As directed (DME) glucose test strips See Rx Instructions .ROUTE .MEDSUPPLY Qty: 400 0RF Rx Instructions: to test 4 times daily True Metrix brand cetirizine 10 mg tablet 10 mg PO DAILY cyclobenzaprine 10 mg tablet 10 mg PO TID PRN (Reason: muscle spasm) Qty: 90 2RF atorvastatin 40 mg tablet 80 mg PO BEDTIME Qty: 90 3RF carvedilol 3.125 mg tablet 3.125 mg PO BID Qty: 180 3RF clopidogrel 75 mg tablet 75 mg PO DAILY Qty: 90 3RF Rx Instructions: takes in the evening hydrochlorothiazide 25 mg tablet 25 mg PO DAILY Qty: 90 3RF hydroxyzine HCl 25 mg tablet 25 mg PO TID PRN (Reason: Anxiety) Qty: 60 0RF ipratropium bromide 21 mcg (0.03 %) spray,non-aerosol 2 spray intranasal BID Qty: 30 0RF lidocaine 5 % adhesive patch,medicated 1 patch TOPICAL DAILY PRN (Reason: Pain) Qty: 30 0RF Rx Instructions: leave on most painful area for up to 12 hrs losartan 100 mg tablet 100 mg PO QAM Qty: 90 3RF metformin 500 mg tablet extended release 24 hr 500 mg PO DAILY Qty: 90 3RF sertraline 50 mg tablet 50 mg PO QAM Qty: 90 3RF trazodone 50 mg tablet 50 mg PO ONCE PM Qty: 90 0RF fluticasone furoate-vilanterol [Breo Ellipta] 200-25 mcg/dose blister with device 1 inh inhalation DAILY Qty: 60 0RF oxycodone 5 mg tablet 5 mg PO DAILY PRN (Reason: pain) Qty: 30 0RF amlodipine 5 mg tablet 5 mg PO DAILY Qty: 90 0RF cilostazol 50 mg tablet 100 mg PO BID Qty: 60 2RF oxycodone-acetaminophen [Percocet] 5-325 mg tablet 1 tab PO Q4-6H PRN (Reason: pain) Qty: 16 0RF naloxone [Narcan] 4 mg/actuation spray,non-aerosol 4 mg intranasal Q2M PRN (Reason: opioid overdose) Qty: 2 0RF Rx Instructions: spray 1 dose into ONE nostril; alternate nostrils w each dose until help arrives acetaminophen 500 mg tablet 1,000 mg PO Q12H albuterol sulfate 90 mcg/actuation HFA aerosol inhaler 2 puff inhalation Q4H PRN (Reason: Wheezing) benzonatate 100 mg Capsule 100 mg PO TID PRN (Reason: Cough) Qty: 60 1RF Follow up/Referrals: Nahomi Hoffman MD [Primary Care Provider, Family Practice] Diet/Activity/Treatments Diet: Regular Visit Report/Discharge Packet Stand Alone Forms: Patient Portal/API, Stroke Signs & Symptoms Discharge Data Primary Care Provider: Nahomi Hoffman Quality VTE Deep Vein Thrombosis/Pulmonary Embolism Present on Admission: No
--- NOTE | 2025-11-09 11:18 | PC.NURSE ---
FRANKLYN Llanes provided d/c edu, pt stated all questions answered. FRANKLYN Llanes removed PIV, pt tolerated well. All VSWNL. Pt [facility], all belongings with pt. Pt escorted via by [facility] volunteer to vehicle for ride home.
--- NOTE | 2025-11-09 11:20 | PC.NURSE ---
Discharge note: Patient up OOB in room. Shower and dressed with min assistance. Discharged per MD order, discharge instructions given to patient, RX on hand, and all patient belongings. Home via private vehicle with assist from family home.
--- NOTE | 2025-11-09 12:05 | CM.DPC ---
DCP Discharge Home Per MD, pt is medically stable to d/c home today and would recommend HH vs outpt PT/OT but pt declines at this time. Pt has [facility] 5x week and has declined HH or Inpt Rehab or SNF at this time as she wants to maintain her [facility] and housing situation and feels her caregivers can provide good care. Patient to d/c home today via [facility] and outpt f/u. No further SW needs at this time. CHARLY Feldman
== END 2025-11-09 11:21 | disposition home or self-care (01) | DRG 149 ==
LOC: ED 11:59 → AC 15:28
PROVIDERS: Admitting Provider Family Medicine; Emergency Provider Emergency Medicine; PCP Family Medicine; Referring Provider Emergency Medicine; Visit Provider Family Medicine
DX: H81.10 Benign paroxysmal vertigo, unspecified ear (principal); I69.351 Hemiplegia and hemiparesis following cerebral infarction affecting right dominant side; H83.09 Labyrinthitis, unspecified ear; I25.10 Atherosclerotic heart disease of native coronary artery without angina pectoris; R47.81 Slurred speech; R27.0 Ataxia, unspecified; E11.9 Type 2 diabetes mellitus without complications; J44.9 Chronic obstructive pulmonary disease, unspecified; F41.9 Anxiety disorder, unspecified; F32.A Depression, unspecified; F43.10 Post-traumatic stress disorder, unspecified; R29.810 Facial weakness; I11.0 Hypertensive heart disease with heart failure; I50.9 Heart failure, unspecified; H53.8 Other visual disturbances; I69.398 Other sequelae of cerebral infarction; I25.2 Old myocardial infarction; Z79.02 Long term (current) use of antithrombotics/antiplatelets; Z79.84 Long term (current) use of oral hypoglycemic drugs; Z87.891 Personal history of nicotine dependence
CPT/HCPCS: 36415; 70450; 70496; 70498; 70551; 71045; 72141; 80053; 81003; 82962; 84484; 85025; 85610; 85730; 93005; 93010; 94640; 94760; 97110; 97116; 97162; 97165; 97530; 97535; 99284; 99285; C8929; J1650; J2405; J7030; J7040; J7613; Q9957

== ENCOUNTER 2025-11-17 17:01 | Inpatient (IN) | payer MEDICARE, MEDICAID, SELFPAY ==
[2025-11-17] VITALS (9 sets, daily range): BP systolic 134–165; BP diastolic 69–78; PULSE 92–110; RESP 22–38; TEMP 36.5–37.4; O2SAT 93–97; BMI 35.9; BMI 36.6
--- NOTE | 2025-11-17 17:09 | DI.RAD.S_ITS ---
PROCEDURE: XR CHEST 1V INDICATIONS: Chest Pain TECHNIQUE: One view of the chest was acquired. COMPARISON: [facility], CR, XR CHEST 1V, 11/06/2025, 12:03. FINDINGS: Surgical changes and devices: None. Lungs and pleura: Low lung volumes, but otherwise lungs are clear. No pleural effusions or pneumothorax. Mediastinum: Mediastinal contours appear normal. Heart size is normal. Bones and chest wall: No suspicious bony lesions. Overlying soft tissues appear unremarkable. IMPRESSION: Low lung volumes, but otherwise lungs are clear. Approved by: Mila Sin M.D.,Ph.D. on 11/17/2025 at 17:48
--- NOTE | 2025-11-17 17:21 | ED_ITS ---
HPI - Chest Pain <Danya Rothman PA-C - Last Filed: 11/17/25 19:23> General Chief Complaint: Chest Pain Stated Complaint: SOB Time Seen by Provider: 11/17/25 17:11 Source: patient Mode of arrival: EMS Limitations: no limitations History of Present Illness HPI narrative: Ms. Stafford is a very pleasant 65-year-old female with a past medical history of COPD requiring frequent hospitalizations, uqt-fxhlvmo-rvlwsgjrj T2 dm, CVA, chronic pain, CHF, HTN, HLD, CAD who presents to the emergency department via EMS from home for shortness of breath since this morning and vomiting x1 week. Patient was discharged from the hospital 11/09/2025 after being admitted for dizziness, seems like there was possible concern for stroke as she did have a stroke in August. Patient states that since she has been discharged from the hospital she has been unable to keep down any food or fluids and she is vomiting everything up. She denies abdominal pain but reports that she is nauseous. This morning she got very short of breath and her home health nurse at 2:00 p.m. recommended that she come to the ER therefore she called EMS. She received a nebulizer breathing treatment from EMS and feels slightly better but continues to have wheezing and shortness of breath. She is also reporting sharp chest pain across her entire chest. She has been feeling both fevers and chills. Reports she had diarrhea a few days ago but this is gone away. Also reports that she had some dysuria a few days ago. Review of systems is very positive. No rashes, abdominal pain, lower extremity edema. Related Data Home Medications ?Medication ?Instructions ?Recorded ?Confirmed acetaminophen 500 mg tablet 1,000 mg PO Q12H 11/26/24 11/07/25 albuterol sulfate 90 mcg/actuation 2 puff inhalation Q 4H PRN Wheezing 11/26/24 11/07/25 aerosol inhaler cetirizine 10 mg tablet 10 mg PO DAILY 08/30/2508/24 Previous Rx's ?Medication ?Instructions ?Recorded benzonatate 100 mg capsule 100 mg PO TID PRN Cough #60 caps 08/22/25 atorvastatin 40 mg tablet 80 mg (2 x 40 mg) PO BEDTIME #90 08/30/25 tabs carvedilol 3.125 mg tablet 3.125 mg PO BID #180 tabs 1 clopidogrel 75 mg tablet 75 mg PO DAILY #90 tabs 1012/24 cyclobenzaprine 10 mg tablet 10 mg PO TID PRN muscle s pasm #90 08/30/25 tabs hydrochlorothiazide 25 mg tablet 25 mg PO DAILY #90 ta bs 08/30/25 hydroxyzine HCl 25 mg tablet 25 mg PO TID PRN Anxiety #60 tabs 08/30/25 ipratropium bromide 21 mcg (0.03 2 spray intranasal BI D #30 mL 08/30/25 %) nasal spray lidocaine 5 % topical patch 1 patch topical DAILY PRN Pain #30 08/30/25 ea losartan 100 mg tablet 100 mg PO QAM #90 tabs 08/30 metformin 500 mg tablet,extended 500 mg PO DAILY #90 t abs 08/30/25 release 24 hr sertraline 50 mg tablet 50 mg PO QAM #90 tabs trazodone 50 mg tablet 50 mg PO ONCE PM #90 tabs fluticasone furoate 200 1 inh inhalation DAILY #60 e a 09/25/25 mcg-vilanterol 25 mcg/dose inhalation powder (Breo Ellipta) blood sugar diagnostic (True #100 ea 10/02/25 Metrix Glucose Test Strip) glucose test strips #400 ea 10/02/25 naloxone 4 mg/actuation nasal 4 mg intranasal Q2M PRN opioid 10/31/25 spray (Narcan) overdose #2 ea oxycodone-acetaminophen 5 mg-325 1 tab PO Q4-6H PRN pa in #16 tabs 10/31/25 mg tablet (Percocet) oxycodone 5 mg tablet 5 mg PO DAILY PRN pain #30 t abs 11/01/25 amlodipine 5 mg tablet 5 mg PO DAILY #90 tabs 11/02 cilostazol 50 mg tablet 100 mg (2 x 50 mg) PO BID #6 0 tabs 11/02/25 oxycodone 5 mg tablet 5 mg PO Q6H PRN pain #30 tab s 11/09/25 Allergies Allergy/AdvReac Type Severity Reaction Status Date / Time aspirin (ASPIRIN) Allergy Severe Throat Verified 11/17/25 17:05 closes, eye itching, difficulty breathing buprenorphine (From Suboxone) Allergy Severe Throat Verified 11/17/25 17:05 closing, vomiting ibuprofen (IBUPROFEN) Allergy Severe Throat Verified 11/17/25 17:05 closes, eye itching, difficulty breathing ketorolac (From TORADOL) Allergy Severe Throat Verified 11/17/25 17:05 closes, eye itching, difficulty breathing methadone Allergy Severe Hard time Verified 11/17/25 17:05 breathing, my vital signs were dropping naloxone (From Suboxone) Allergy Severe Throat Verified 11/17/25 17:05 closing, vomiting NSAIDS (Non-Steroidal Allergy Severe Throat Verified 11/17/25 17:05 Anti-Inflamma closes, eye itching, difficulty breathing tramadol (TRAMADOL) Allergy Severe Rash, my Verified 11/17/25 17:05 throat was closing duloxetine Allergy Rash Verified 11/17/25 17:05 gabapentin AdvReac Gastrointestinal Verified 11/17/25 17:05 Upset Review of Systems <Danya Rothman PA-C - Last Filed: 11/17/25 19:23> Review of Systems ROS Unobtainable: All systems reviewed & are unremarkable except as noted in HPI and below Patient History <Danya Rothman PA-C - Last Filed: 11/17/25 19:23> Medical History DM2 (diabetes mellitus, type 2) Chronic narcotic dependence Insomnia CHF (congestive heart failure) Chronic pain History of CVA (cerebrovascular accident) Myocardial infarction Hepatic steatosis Drug-seeking behavior Seizures Peptic ulcer disease PTSD (post-traumatic stress disorder) Depression Easy bruisability Osteoarthritis GERD (gastroesophageal reflux disease) HLD (hyperlipidemia) HTN (hypertension) Asthma Hearing loss Prediabetes Other chronic pain Tinea pedis Pain in right hip Anxiety Coronary artery disease COPD (chronic obstructive pulmonary disease) Stroke (1999) Surgical History Hx of colonoscopy Hx of tonsillectomy History of surgery on wrist History of bilateral knee replacement Social History household members: caregiver and none alcohol intake: never tobacco type: cigarettes alcohol intake frequency: holidays/special occasions only Exam <Danya Rothman PA-C - Last Filed: 11/17/25 19:23> Narrative Exam Narrative: GENERAL: 65 year old patient appears stated age. Obese patient, increased work of breathing, not in mild distress. HEAD: Atraumatic. Normocephalic. EYES: No scleral icterus. No injection or drainage. ENT: Uvula midline. Posterior oropharynx without erythema. NECK: Trachea midline. Cervical ROM intact. CARDIOVASCULAR: Increased rate, regular rhythm. RESPIRATORY: Increased respiratory rate and effort. Patient has diffuse inspiratory rhonchi and expiratory wheezes. GASTROINTESTINAL: Abdomen soft, non-tender, nondistended. EXTREMITIES: No LE edema. NEURO: Alert and oriented. Answers questions appropriate. Very talkative. No facial asymmetry. SKIN: No rash or erythema of visible areas Initial Vital Signs Initial Vital Signs: Vital Signs Temperature 99.3 F 11/17/25 17:05 Pulse Rate 110 H 11/17/25 17:05 Respiratory Rate 38 H 11/17/25 17:05 Blood Pressure 134/69 11/17/25 17:05 Pulse Oximetry 97 11/17/25 17:05 Oxygen Delivery Method Room Air 11/17/25 17:05 <Eleazar Garzon MD - Last Filed: 11/17/25 19:49> Initial Vital Signs Initial Vital Signs: Vital Signs Temperature 99.3 F 11/17/25 17:05 Pulse Rate 110 H 11/17/25 17:05 Respiratory Rate 38 H 11/17/25 17:05 Blood Pressure 134/69 11/17/25 17:05 Pulse Oximetry 97 11/17/25 17:05 Oxygen Delivery Method Room Air 11/17/25 17:05 Course <Danya Rothman PA-C - Last Filed: 11/17/25 19:23> Orders Ordered: ED Orders 11/17/25 17:09 XR chest 1V Stat EKG-12 Lead Stat 11/17/25 17:15 Complete Blood Count AUTO DIFF Stat Comprehensive Metabolic Panel Stat Lipase Stat Magnesium Stat NT-proBNP (BNP-Adult 18+) Stat PTT Partial Thromboplastin Reinaldo Stat Prothrombin Time INR Stat Troponin & CK Cardiac Panel Stat 11/17/25 17:19 RT Consult Eval and Treat NOW 11/17/25 17:23 Respiratory Panel (Film Array) Stat Discontinued Medications Albuterol (Albuterol 2.5 Mg/3 Ml Neb (Adult)) 5 mg INH NOW ONE Stop: 11/17/25 17:23 Last Admin: 12/19/25 17:31 Dose: 5 mg Documented By: LUZ MARINA Ipratropium [place] (Ipratropium 0.5 Mg/2.5 Ml Neb) 0.5 mg INH NOW ONE Stop: 11/17/25 17:23 Last Admin: 11/17/25 17:31 Dose: 0.5 mg Documented By: LUZ MARINA Methylprednisolone (Methylprednisolone Succ 125 Mg/2 Ml Vial) 125 mg IV NOW ONE Stop: 11/17/25 17:21 Last Admin: 11/17/25 17:27 Dose: 125 mg Documented By: AARON Ondansetron HCl (Ondansetron 4 Mg/2 Ml Inj) 4 mg IV NOW ONE Stop: 11/17/25 18:42 Last Admin: 11/17/25 18:53 Dose: 4 mg Documented By: AMISH Oxycodone/Acetaminophen (Oxycodone/Acetaminophen 5/325 Tablet) 1 tab PO NOW ONE Stop: 11/17/25 17:21 Last Admin: 11/17/25 17:26 Dose: 1 tab Documented By: AARON Vital Signs Vital signs: Vital Signs - 8 hr 11/17/25 17:05 11/17/25 17:06 11/17/25 17:30 Temperature 99.3 F Pulse Rate 110 H 99 H 96 H Respiratory Rate 38 H 38 H Blood Pressure 134/69 Pulse Oximetry 97 96 95 Oxygen Delivery Method Room Air 11/17/25 17:31 11/17/25 17:32 11/17/25 17:32 Temperature Pulse Rate 104 H 92 H Respiratory Rate 34 H 32 H Blood Pressure 143/78 H Pulse Oximetry 96 97 Oxygen Delivery Method Room Air 11/17/25 19:05 Temperature Pulse Rate 95 H Respiratory Rate Blood Pressure 165/73 H Pulse Oximetry 93 Oxygen Delivery Method Room Air <Eleazar Garzon MD - Last Filed: 11/17/25 19:49> Orders Ordered: ED Orders 11/17/25 17:09 XR chest 1V Stat EKG-12 Lead Stat 11/17/25 17:15 Complete Blood Count AUTO DIFF Stat Comprehensive Metabolic Panel Stat Lipase Stat Magnesium Stat NT-proBNP (BNP-Adult 18+) Stat PTT Partial Thromboplastin Reinaldo Stat Prothrombin Time INR Stat Troponin & CK Cardiac Panel Stat 11/17/25 17:19 RT Consult Eval and Treat NOW 11/17/25 17:23 Respiratory Panel (Film Array) Stat Discontinued Medications Albuterol (Albuterol 2.5 Mg/3 Ml Neb (Adult)) 5 mg INH NOW ONE Stop: 11/17/25 17:23 Last Admin: 11/17/25 17:31 Dose: 5 mg Documented By: LUZ MARINA Ipratropium [place] (Ipratropium 0.5 Mg/2.5 Ml Neb) 0.5 mg INH NOW ONE Stop: 11/17/25 17:23 Last Admin: 11/17/25 17:31 Dose: 0.5 mg Documented By: LUZ MARINA Methylprednisolone (Methylprednisolone Succ 125 Mg/2 Ml Vial) 125 mg IV NOW ONE Stop: 11/17/25 17:21 Last Admin: 11/17/25 17:27 Dose: 125 mg Documented By: AARON Ondansetron HCl (Ondansetron 4 Mg/2 Ml Inj) 4 mg IV NOW ONE Stop: 11/17/25 18:42 Last Admin: 11/17/25 18:53 Dose: 4 mg Documented By: AMISH Oxycodone/Acetaminophen (Oxycodone/Acetaminophen 5/325 Tablet) 1 tab PO NOW ONE Stop: 11/17/25 17:21 Last Admin: 11/17/25 17:26 Dose: 1 tab Documented By: AARON Vital Signs Vital signs: Vital Signs - 8 hr 11/17/25 17:05 11/17/25 17:06 11/17/25 17:30 Temperature 99.3 F Pulse Rate 110 H 99 H 96 H Respiratory Rate 38 H 38 H Blood Pressure 134/69 Pulse Oximetry 97 96 95 Oxygen Delivery Method Room Air 11/17/25 17:31 11/17/25 17:32 11/17/25 17:32 Temperature Pulse Rate 104 H 92 H Respiratory Rate 34 H 32 H Blood Pressure 143/78 H Pulse Oximetry 96 97 Oxygen Delivery Method Room Air 11/17/25 19:05 Temperature Pulse Rate 95 H Respiratory Rate Blood Pressure 165/73 H Pulse Oximetry 93 Oxygen Delivery Method Room Air MDM - Chest Pain <Danya Rothman PA-C - Last Filed: 11/17/25 19:23> Medical Records Data Attestation: I reviewed the patient's medical records. Lab Data 11/17/25 17:15 11/17/25 17:15 Labs: Lab Results 12/19/25 12/19/25 Range/Units 17:15 17:23 WBC 7.5 (4.5-11.0) X10^3/uL RBC 4.15 (4.0-5.2) X10^6/uL Hgb 11.6 L (12.0-16.0) g/dL Hct 35.5 L (36-46) % MCV 85.6 (80-100) fL MCH 28.0 (26-34) PG MCHC 32.7 (30-36) % RDW 14.0 (11.6-14.8) % Plt Count 359 (150-400) X10^3/uL Neut % (Auto) 63.2 (50-75) % Lymph % (Auto) 26.2 (25-40) % [place] % (Auto) 7.6 (3-14) % Eos % (Auto) 2.0 (2-4) % Baso % (Auto) 1.0 (0-2) % Neut # (Auto) 4800 (0254-1486) /uL Lymph # (Auto) 2000 (6336-1113) /uL [place] # (Auto) 600 (0-900) /uL Eos # (Auto) 200 (0-450) /uL Baso # (Auto) 100 (0-100) /uL PT 10.5 (9.4-12.5) SECONDS INR 0.9 (0.9-1.3) APTT 33 (25.1-36.5) SECONDS Sodium 140 (137-145) mmol/L Potassium 3.4 (3.4-5.1) mmol/L Chloride 103 (98-107) mmol/L Carbon Dioxide 27 (22-32) mmol/L BUN 14 (7-17) mg/dL Creatinine 0.64 (0.52-1.04) mg/dL Estimated GFR > 60 (>60) mL/min BUN/Creatinine Ratio 21.9 (6-22) Glucose 118 H (70-99) mg/dL Calcium 9.1 (8.4-10.2) mg/dL Magnesium 2.0 (1.6-2.3) mg/dL Total Bilirubin 0.3 (0.2-1.3) mg/dL AST 34 (14-36) IU/L ALT 23 (<35) IU/L Alkaline Phosphatase 97 (38-126) U/L Total Creatine Kinase 66 (30-135) U/L Troponin I < 0.012 (0.01-0.034) ng/mL NT-Pro-B Natriuret Pep 148 H (<125) pg/mL Total Protein 7.6 (6.3-8.2) g/dL Albumin 4.5 (3.5-5.0) g/dL Globulin 3.1 (1.7-4.1) g/dL Albumin/Globulin Ratio 1.5 (1.0-2.8) Lipase 50 (23-300) U/L Chlamy pneumoniae PCR Not detected (Not Detect) Adenovirus (PCR) Not detected (Not Detect) B. pertussis DNA (PCR) Not detected (Not Detect) B.parapertussis DNA PCR Not detected (Not Detecte) Coronavirus OC43 (PCR) Not detected (Not Detect) Coronavirus HKU1 (PCR) Not detected (Not Detect) Coronavirus 229E (PCR) Not detected (Not Detect) SARS-CoV-2 (PCR) Not detected (Not Detecte) Coronavirus NL63 (PCR) Not detected (Not Detect) Human Metapneumovir PCR Not detected (Not Detect) Influenza Type A (PCR) Not detected (Not Detect) Influenza Type B (PCR) Not detected (Not Detect) M. pneumoniae (PCR) Not detected (Not Detect) Parainfluenza 1 (PCR) Not detected (Not Detect) Parainfluenza 2 (PCR) Not detected (Not Detect) Parainfluenza 3 (PCR) Not detected (Not Detect) Parainfluenza 4 (PCR) Not detected (Not Detect) RSV (PCR) Not detected (Not Detect) Entero/Rhino (PCR) Not detected (Not Detect) Urine Dip Bedside Urine Glucose Negative Bedside Urine Bilirubin - Negative Bedside Urine Ketone - Negative Urine Specific [employer] [place] 1.010 Bedside Urine Occult Blood - Negative Bedside Urine pH 6.0 Bedside Urine Protein - Negative Bedside Urine Urobilinogen - Negative Bedside Urine Nitrite - Negative Bedside Urine Leukocytes - Negative Esterase MDM Narrative Medical decision making narrative: 65-year-old female with a past medical history of COPD requiring frequent hospitalizations, [id number]-[id number] T2 dm, CVA, chronic pain, CHF, HTN, HLD, CAD who presents to the emergency department via EMS from home for shortness of breath since this morning and vomiting x1 week. Differential diagnosis includes but is not limited to COPD exacerbation, pneumonia, bronchitis myocarditis, pericarditis, electrolyte derangement, dehydration, UTI, etc. On exam patient is in mild distress, she ia not hypoxic but she does have increased respiratory rate, she does have diffuse expiratory wheezing inspiratory rhonchi. She is reporting diffuse chest pain and also chest tenderness, no abdominal tenderness. Vital signs reveal normal temperature 99.3?, slightly elevated heart rate 110, increased respiratory rate 38. Normal blood pressure 134/69, normal oxygenation 97% on room air. We will obtain chest pain order set, treat with Solu-Medrol, breathing treatments, home oxycodone. RT at bedside. Labs reveal normal WBC count 7.5, slightly low hemoglobin 11.6 hematocrit 35.5. Normal platelets 359. Normal coags. Normal sodium 140, potassium lower limits of normal 3.4. BUN 14 creatinine 0.64. Glucose 118. Normal LFTs. Undetectable troponin, pt states she has had CP for 1 week, repeat trop not ordered. Very slight elevation BNP 148. Respiratory panel negative. Chest x- ray reveals low lung volumes but otherwise lungs are clear. 1840: Re-evaluated patient, she just walked to the bathroom to provide a urine sample. POC urine is negative for infection. Reports that she is not feeling any better and she feels as though she may throw up. Repeat lung auscultation after breathing treatments reveal diffuse expiratory wheezing and continued diminished air movement. 1900: ED physician Dr. Saavedra evaluated the patient at the bedside with me. She continues to be tachypneic with diffuse wheezing. She is not hypoxic would do believe she warrants admission to the hospital for continued evaluation and management, breathing treatments and management of COPD exacerbation. Nighttime hospitalist paged. 1920: Discussed the case with the nighttime hospitalist Dr. Li who graciously accepts the patient for admission to the hospital, inpatient, for continued treatment of COPD exacerbation. Patient is aware and agreeable to admission to the hospital, she is stable for transfer to the floor, full code. <Eleazar Garzon MD - Last Filed: 11/17/25 19:49> Lab Data Attestation: I reviewed the patient's lab results. Labs: Lab Results 11/17/25 11/17/25 Range/Units 17:15 17:23 WBC 7.5 (4.5-11.0) X10^3/uL RBC 4.15 (4.0-5.2) X10^6/uL Hgb 11.6 L (12.0-16.0) g/dL Hct 35.5 L (36-46) % MCV 85.6 (80-100) fL MCH 28.0 (26-34) PG MCHC 32.7 (30-36) % RDW 14.0 (11.6-14.8) % Plt Count 359 (150-400) X10^3/uL Neut % (Auto) 63.2 (50-75) % Lymph % (Auto) 26.2 (25-40) % [place] % (Auto) 7.6 (3-14) % Eos % (Auto) 2.0 (2-4) % Baso % (Auto) 1.0 (0-2) % Neut # (Auto) 4800 (3514-7029) /uL Lymph # (Auto) 2000 (5814-9270) /uL [place] # (Auto) 600 (0-900) /uL Eos # (Auto) 200 (0-450) /uL Baso # (Auto) 100 (0-100) /uL PT 10.5 (9.4-12.5) SECONDS INR 0.9 (0.9-1.3) APTT 33 (25.1-36.5) SECONDS Sodium 140 (137-145) mmol/L Potassium 3.4 (3.4-5.1) mmol/L Chloride 103 (98-107) mmol/L Carbon Dioxide 27 (22-32) mmol/L BUN 14 (7-17) mg/dL Creatinine 0.64 (0.52-1.04) mg/dL Estimated GFR > 60 (>60) mL/min BUN/Creatinine Ratio 21.9 (6-22) Glucose 118 H (70-99) mg/dL Calcium 9.1 (8.4-10.2) mg/dL Magnesium 2.0 (1.6-2.3) mg/dL Total Bilirubin 0.3 (0.2-1.3) mg/dL AST 34 (14-36) IU/L ALT 23 (<35) IU/L Alkaline Phosphatase 97 (38-126) U/L Total Creatine Kinase 66 (30-135) U/L Troponin I < 0.012 (0.01-0.034) ng/mL NT-Pro-B Natriuret Pep 148 H (<125) pg/mL Total Protein 7.6 (6.3-8.2) g/dL Albumin 4.5 (3.5-5.0) g/dL Globulin 3.1 (1.7-4.1) g/dL Albumin/Globulin Ratio 1.5 (1.0-2.8) Lipase 50 (23-300) U/L Chlamy pneumoniae PCR Not detected (Not Detect) Adenovirus (PCR) Not detected (Not Detect) B. pertussis DNA (PCR) Not detected (Not Detect) B.parapertussis DNA PCR Not detected (Not Detecte) Coronavirus OC43 (PCR) Not detected (Not Detect) Coronavirus HKU1 (PCR) Not detected (Not Detect) Coronavirus 229E (PCR) Not detected (Not Detect) SARS-CoV-2 (PCR) Not detected (Not Detecte) Coronavirus NL63 (PCR) Not detected (Not Detect) Human Metapneumovir PCR Not detected (Not Detect) Influenza Type A (PCR) Not detected (Not Detect) Influenza Type B (PCR) Not detected (Not Detect) M. pneumoniae (PCR) Not detected (Not Detect) Parainfluenza 1 (PCR) Not detected (Not Detect) Parainfluenza 2 (PCR) Not detected (Not Detect) Parainfluenza 3 (PCR) Not detected (Not Detect) Parainfluenza 4 (PCR) Not detected (Not Detect) RSV (PCR) Not detected (Not Detect) Entero/Rhino (PCR) Not detected (Not Detect) Urine Dip Bedside Urine Glucose Negative Bedside Urine Bilirubin - Negative Bedside Urine Ketone - Negative Urine Specific [employer] [place] 1.010 Bedside Urine Occult Blood - Negative Bedside Urine pH 6.0 Bedside Urine Protein - Negative Bedside Urine Urobilinogen - Negative Bedside Urine Nitrite - Negative Bedside Urine Leukocytes - Negative Esterase MDM Narrative Medical decision making narrative: 65-year-old female with a past medical history of COPD requiring frequent hospitalizations, ulj-qtefjns-rioxmfjef T2 dm, CVA, chronic pain, CHF, HTN, HLD, CAD who presents to the emergency department via EMS from home for shortness of breath since this morning and vomiting x1 week. Differential diagnosis includes but is not limited to COPD exacerbation, pneumonia, bronchitis myocarditis, pericarditis, electrolyte derangement, dehydration, UTI, etc. On exam patient is in mild distress, she ia not hypoxic but she does have increased respiratory rate, she does have diffuse expiratory wheezing inspiratory rhonchi. She is reporting diffuse chest pain and also chest tenderness, no abdominal tenderness. Vital signs reveal normal temperature 99.3?, slightly elevated heart rate 110, increased respiratory rate 38. Normal blood pressure 134/69, normal oxygenation 97% on room air. We will obtain chest pain order set, treat with Solu-Medrol, breathing treatments, home oxycodone. RT at bedside. Labs reveal normal WBC count 7.5, slightly low hemoglobin 11.6 hematocrit 35.5. Normal platelets 359. Normal coags. Normal sodium 140, potassium lower limits of normal 3.4. BUN 14 creatinine 0.64. Glucose 118. Normal LFTs. Undetectable troponin, pt states she has had CP for 1 week, repeat trop not ordered. Very slight elevation BNP 148. Respiratory panel negative. Chest x- ray reveals low lung volumes but otherwise lungs are clear. 1840: Re-evaluated patient, she just walked to the bathroom to provide a urine sample. POC urine is negative for infection. Reports that she is not feeling any better and she feels as though she may throw up. Repeat lung auscultation after breathing treatments reveal diffuse expiratory wheezing and continued diminished air movement. 1900: ED physician Dr. Saavedra evaluated the patient at the bedside with me. She continues to be tachypneic with diffuse wheezing. She is not hypoxic would do believe she warrants admission to the hospital for continued evaluation and management, breathing treatments and management of COPD exacerbation. Nighttime hospitalist paged. 0: Discussed the case with the nighttime hospitalist Dr. Li who graciously accepts the patient for admission to the hospital, inpatient, for continued treatment of COPD exacerbation. Patient is aware and agreeable to admission to the hospital, she is stable for transfer to the floor, full code. I was involved in this patient's care. I interfaced with the patient taking a history and examining her and also consulted together with STEVEN Rothman regarding disposition. I recommended the patient be admitted for COPD exacerbation and STEVEN Rothman interfaced with the hospitalist who accepted admission. Discharge Plan Departure Patient Disposition: Admitted As Inpatient Clinical Impression: COPD exacerbation, Shortness of breath Admit Date/Time: 11/17/25 19:19 Admit Provider: Nacho Li
--- NOTE | 2025-11-17 17:23 | EKG_ITS ---
[facility] [address] [place] [address] Test Date: 2025-11-17 Pat Name: Cira Stafford Department: [facility] Room: Gender: Female [employer] Director: : 1960 Requested By: Order Number: [id number] Reading MD: Gomez Calvillo MD Measurements Intervals [place] Rate: 96 P: 45 CT: 142 QRS: 2 QRSD: 74 T: 16 QT: 372 QTc: 469 Interpretive Statements Sinus rhythm with frequent premature ventricular complexes and fusion complexes Electronically Signed On 11-18-2025 9:34:31 PST by Gomez Calvillo MD
[2025-11-17 17:25] LABS: Add Manual Diff / Slide Review NO; Hematocrit 35.5 % (36-46); Hemoglobin 11.6 g/dL (12.0-16.0); Lymphocytes Absolute Auto 2000 /uL (1100-4500); Mean Corpuscular HGB Conc 32.7 % (30-36); Mean Corpuscular Hemoglobin 28.0 PG (26-34); Mean Corpuscular Volume 85.6 fL (80-100); Platelet Count 359 X10^3/uL (150-400)
[2025-11-17] MEDS: methylPREDNISolone succ 125 MG/2 ML VIAL IV (17:27)
[2025-11-17 17:30] LABS: INR 0.9 (0.9-1.3); Prothrombin Time 10.5 SECONDS (9.4-12.5)
[2025-11-17] MEDS: ALBUTEROL 2.5 MG/3 ML NEB (ADULT) 5 MG INH (17:31)
[2025-11-17] MEDS: IPRATROPIUM 0.5 MG/2.5 ML NEB INH (17:31)
[2025-11-17 17:33] LABS: PTT Partial Thromboplastin Tim 33 SECONDS (25.1-36.5)
[2025-11-17 17:35] LABS: Alanine Aminotransferase 23 IU/L (<35); Albumin 4.5 g/dL (3.5-5.0); Albumin Globulin Ratio 1.5 (1.0-2.8); Alkaline Phosphatase 97 U/L (38-126); Blood Urea Nitrogen 14 mg/dL (7-17); Calcium 9.1 mg/dL (8.4-10.2); Carbon Dioxide 27 mmol/L (22-32); Chloride 103 mmol/L (98-107); Creatine Kinase 66 U/L (30-135); Estimated Glomerular Filt Rate > 60 mL/min (>60); Globulin 3.1 g/dL (1.7-4.1); Glucose 118 mg/dL (70-99); HEMOLYSIS < 15 (0-50); Lipase 50 U/L (23-300); Magnesium 2.0 mg/dL (1.6-2.3); Potassium 3.4 mmol/L (3.4-5.1); Sodium 140 mmol/L (137-145); Total Protein 7.6 g/dL (6.3-8.2)
[2025-11-17 17:47] LABS: NT-proBNP (BNP-Adult 18+) 148 pg/mL (<125); Troponin I < 0.012 ng/mL (0.01-0.034)
--- NOTE | 2025-11-17 17:52 | RT ---
pt sherri cardozo tx well, on room air. Mod sob noted COMMUNICATIONS MEDIA PROFESSOR at bedside.
[2025-11-17 18:29] LABS: Coronavirus NL 63 Not Detected (Not Detect); SARS- CoV-2 Not Detected (Not Detecte)
[2025-11-17] MEDS: ONDANSETRON 4 MG/2 ML INJ IV ×2 (18:53→22:07)
[2025-11-17] MEDS: CALCIUM CARBONATE 500 MG TAB 1000 MG PO (22:07)
[2025-11-17] MEDS: guaiFENesin Solution 100 MG/5 ML UDC PO (22:08)
[2025-11-17] MEDS: BENZONATATE 100 MG CAPSULE PO (22:08)
[2025-11-17] MEDS: SERTRALINE 50 MG TABLET PO (22:09)
[2025-11-17] MEDS: LOSARTAN 50 MG TABLET 100 MG PO (22:09)
[2025-11-17] MEDS: ATORVASTATIN 20 MG TABLET 80 MG PO (22:10)
[2025-11-17] MEDS: SENNOSIDES 8.6 MG TABLET 17.2 MG PO (22:10)
[2025-11-17] MEDS: CYCLOBENZAPRINE 10 MG TABLET PO (22:10)
[2025-11-17] MEDS: methylPREDNISolone succ 125 MG/2 ML VIAL 80 MG IV (22:11)
[2025-11-17] MEDS: LIDOCAINE 5% PATCH 1 EACH TOP (22:20)
[2025-11-18] VITALS (10 sets, daily range): BP systolic 131–137; BP diastolic 60–84; PULSE 86–112; RESP 20–28; TEMP 35.9–36.1; O2SAT 96–98
--- NOTE | 2025-11-18 00:15 | PM.HP.1 ---
History of Present Illness History of Present Illness Date Patient Seen: 11/18/25 Time Patient Seen: 00:15 Chief complaint: SOB Narrative: The pt is a 65 yo with COPD, hx of CVA, HTN who was admitted to [place] in late 2024 where she was admitted for syncope and was admitted again 2 weeks ago for COPD exacerbation and again last week for dizziness. Tonight she states she has worsening non-productive cough, SOB, dyspnea. There has been no nausea but she states that she has loose stools after she eats and sometimes vomits without nausea. No chest pain, no edema in legs, PFSH Medical History DM2 (diabetes mellitus, type 2) Chronic narcotic dependence Insomnia CHF (congestive heart failure) Chronic pain History of CVA (cerebrovascular accident) Myocardial infarction Hepatic steatosis Drug-seeking behavior Seizures Peptic ulcer disease PTSD (post-traumatic stress disorder) Depression Easy bruisability Osteoarthritis GERD (gastroesophageal reflux disease) HLD (hyperlipidemia) HTN (hypertension) Asthma Hearing loss Prediabetes Other chronic pain Tinea pedis Pain in right hip Anxiety Coronary artery disease COPD (chronic obstructive pulmonary disease) Stroke (1999) Surgical History Hx of colonoscopy Hx of tonsillectomy History of surgery on wrist History of bilateral knee replacement Social History household members: none Smoking Status: Former smoker alcohol intake: former Meds Home Medications and Allergies Home Medications ?Medication ?Instructions ?Recorded ?Confirmed ?Type acetaminophen 500 mg tablet 1,000 mg PO Q12H 11/26/24 11/17/25 History albuterol sulfate 90 mcg/actuation 2 puff inhalation Q4H PRN Wheezing 11/26/24 11/17/25 History aerosol inhaler benzonatate 100 mg capsule 100 mg PO TID PRN Cough #60 caps 08/22/25 11/17/25 Rx atorvastatin 40 mg tablet 80 mg (2 x 40 mg) PO BEDTIME #90 08/30/25 11/17/25 Rx tabs carvedilol 3.125 mg tablet 3.125 mg PO BID #180 tabs 08/30/25 11/17/25 Rx cetirizine 10 mg tablet 10 mg PO DAILY 08/30/25 11/17/25 History clopidogrel 75 mg tablet 75 mg PO DAILY #90 tabs 08/30/25 11/17/25 Rx cyclobenzaprine 10 mg tablet 10 mg PO TID PRN muscle spasm #90 08/30/25 11/17/25 Rx tabs hydrochlorothiazide 25 mg tablet 25 mg PO DAILY #90 tabs 08/30/25 11/17/25 Rx hydroxyzine HCl 25 mg tablet 25 mg PO TID PRN Anxiety #60 tabs 08/30/25 11/17/25 Rx ipratropium bromide 21 mcg (0.03 2 spray intranasal BID #30 mL 08/30/25 11/17/25 Rx %) nasal spray lidocaine 5 % topical patch 1 patch topical DAILY PRN Pain #30 08/30/25 11/17/25 Rx ea losartan 100 mg tablet 100 mg PO QAM #90 tabs 08/30/25 11/17/25 Rx metformin 500 mg tablet,extended 500 mg PO DAILY #90 tabs 08/30/25 11/17/25 Rx release 24 hr sertraline 50 mg tablet 50 mg PO QAM #90 tabs 08/30/25 11/17/25 Rx trazodone 50 mg tablet 50 mg PO ONCE PM #90 tabs 08/30/25 11/17/25 Rx fluticasone furoate 200 1 inh inhalation DAILY #60 ea 09/25/25 11/17/25 Rx mcg-vilanterol 25 mcg/dose inhalation powder (Breo Ellipta) blood sugar diagnostic (True #100 ea 10/02/25 11/17/25 Rx Metrix Glucose Test Strip) glucose test strips #400 ea 10/02/25 11/17/25 Rx naloxone 4 mg/actuation nasal 4 mg intranasal Q2M PRN opioid 10/31/25 11/17/25 Rx spray (Narcan) overdose #2 ea oxycodone-acetaminophen 5 mg-325 1 tab PO Q4-6H PRN pain #16 tabs 10/31/25 11/17/25 Rx mg tablet (Percocet) amlodipine 5 mg tablet 5 mg PO DAILY #90 tabs 11/02/25 11/17/25 Rx cilostazol 50 mg tablet 100 mg (2 x 50 mg) PO BID #60 tabs 11/02/25 11/17/25 Rx Allergies Allergy/AdvReac Type Severity Reaction Status Date / Time aspirin (ASPIRIN) Allergy Severe Throat Verified 11/17/25 17:05 closes, eye itching, difficulty breathing buprenorphine (From Suboxone) Allergy Severe Throat Verified 11/17/25 17:05 closing, vomiting ibuprofen (IBUPROFEN) Allergy Severe Throat Verified 11/17/25 17:05 closes, eye itching, difficulty breathing ketorolac (From TORADOL) Allergy Severe Throat Verified 11/17/25 17:05 closes, eye itching, difficulty breathing methadone Allergy Severe Hard time Verified 11/17/25 17:05 breathing, my vital signs were dropping naloxone (From Suboxone) Allergy Severe Throat Verified 11/17/25 17:05 closing, vomiting NSAIDS (Non-Steroidal Allergy Severe Throat Verified 11/17/25 17:05 Anti-Inflamma closes, eye itching, difficulty breathing tramadol (TRAMADOL) Allergy Severe Rash, my Verified 11/17/25 17:05 throat was closing duloxetine Allergy Rash Verified 11/17/25 17:05 gabapentin AdvReac Gastrointestinal Verified 11/17/25 17:05 Upset Exam Vital Signs (past 8 hours): - 11/17/25 17:05 11/17/25 17:06 11/17/25 17:30 Temperature 99.3 F Pulse Rate 110 H 99 H 96 H Respiratory Rate 38 H 38 H Blood Pressure 134/69 Pulse Oximetry 97 96 95 Oxygen Delivery Method Room Air Oxygen Flow Rate 11/17/25 17:31 11/17/25 17:32 11/17/25 17:32 Temperature Pulse Rate 104 H 92 H Respiratory Rate 34 H 32 H Blood Pressure 143/78 H Pulse Oximetry 96 97 Oxygen Delivery Method Room Air Oxygen Flow Rate 11/17/25 19:05 11/17/25 20:33 11/17/25 21:00 Temperature 97.7 F Pulse Rate 95 H 101 H Respiratory Rate 22 Blood Pressure 165/73 H 152/72 H Pulse Oximetry 93 96 Oxygen Delivery Method Room Air Room Air Oxygen Flow Rate 0 11/17/25 22:08 11/17/25 22:09 Temperature Pulse Rate 101 H 101 H Respiratory Rate Blood Pressure 152/72 H 152/72 H Pulse Oximetry Oxygen Delivery Method Oxygen Flow Rate Oxygen Delivery Method Room Air Oxygen Flow Rate 0 Resp Auscultation: wheezes Cardio Rate: regular rate Rhythm: regular rhythm GI Inspection: obesity Auscultation: normal bowel sounds Objective Labs 11/17/25 17:15 11/17/25 17:15 Labs: Laboratory Results - last 24 hr 11/17/25 11/17/25 11/17/25 17:15 17:23 21:22 WBC 7.5 RBC 4.15 Hgb 11.6 L Hct 35.5 L MCV 85.6 MCH 28.0 MCHC 32.7 RDW 14.0 Plt Count 359 Neut % (Auto) 63.2 Lymph % (Auto) 26.2 [place] % (Auto) 7.6 Eos % (Auto) 2.0 Baso % (Auto) 1.0 Neut # (Auto) 4800 Lymph # (Auto) 2000 [place] # (Auto) 600 Eos # (Auto) 200 Baso # (Auto) 100 PT 10.5 INR 0.9 APTT 33 Sodium 140 Potassium 3.4 Chloride 103 Carbon Dioxide 27 BUN 14 Creatinine 0.64 Estimated GFR > 60 BUN/Creatinine Ratio 21.9 Glucose 118 H POC Whole Bld Glucose 156 H Calcium 9.1 Magnesium 2.0 Total Bilirubin 0.3 AST 34 ALT 23 Alkaline Phosphatase 97 Total Creatine Kinase 66 Troponin I < 0.012 NT-Pro-B Natriuret Pep 148 H Total Protein 7.6 Albumin 4.5 Globulin 3.1 Albumin/Globulin Ratio 1.5 Lipase 50 Chlamy pneumoniae PCR Not detected Adenovirus (PCR) Not detected B. pertussis DNA (PCR) Not detected B.parapertussis DNA PCR Not detected Coronavirus OC43 (PCR) Not detected Coronavirus HKU1 (PCR) Not detected Coronavirus 229E (PCR) Not detected SARS-CoV-2 (PCR) Not detected Coronavirus NL63 (PCR) Not detected Human Metapneumovir PCR Not detected Influenza Type A (PCR) Not detected Influenza Type B (PCR) Not detected M. pneumoniae (PCR) Not detected Parainfluenza 1 (PCR) Not detected Parainfluenza 2 (PCR) Not detected Parainfluenza 3 (PCR) Not detected Parainfluenza 4 (PCR) Not detected RSV (PCR) Not detected Entero/Rhino (PCR) Not detected Assessment & Plan Assessment & Plan narrative: 1. COPD exacerbation 2. HTN 3. hx of CVA 4. obesity 5. DM 6. GERD Will start the pt on Solumedrol 80 mg IV Q8, Duo-neb breathing tx, PRN albuterol, She had just completed a 5day taper of Prednisone, I patricia recommend a longer taper for her steroids, CXR does not show acute infiltrates, I reviewed the labs personally showing a normal CBC, negative respiratory panel, I discussed [facility] pt's presenting symptoms, labs and imaging with the ER provider and agreed with the decision for admission. I, Dr. Mariely Li, in [place] has seen and examined Cira Stafford in [place] using telemedicine audio/video with the pt's consent and nursing assistance. Time-Based Coding :: [TOTAL MINUTES] spent with patient and on the chart (including review of chart, obtaining history, exam, reviewing outside data, placing orders, documenting exam and treatment plan, and counseling patient) on [DATE]. Quality VTE Deep Vein Thrombosis/Pulmonary Embolism Present on Admission: No
[2025-11-18] MEDS: methylPREDNISolone succ 125 MG/2 ML VIAL 80 MG IV ×3 (04:45→20:02)
[2025-11-18 05:16] LABS: Add Manual Diff / Slide Review NO; Hematocrit 35.6 % (36-46); Hemoglobin 11.7 g/dL (12.0-16.0); Lymphocytes Absolute Auto 700 /uL (1100-4500); Mean Corpuscular HGB Conc 32.8 % (30-36); Mean Corpuscular Hemoglobin 28.2 PG (26-34); Mean Corpuscular Volume 86.1 fL (80-100); Platelet Count 343 X10^3/uL (150-400)
[2025-11-18 05:32] LABS: Blood Urea Nitrogen 17 mg/dL (7-17); Calcium 9.3 mg/dL (8.4-10.2); Carbon Dioxide 27 mmol/L (22-32); Chloride 105 mmol/L (98-107); Estimated Glomerular Filt Rate > 60 mL/min (>60); Glucose 194 mg/dL (70-99); HEMOLYSIS < 15 (0-50); Potassium 3.8 mmol/L (3.4-5.1); Sodium 140 mmol/L (137-145)
[2025-11-18] MEDS: PANTOPRAZOLE DR 20 MG TABLET PO (06:00)
[2025-11-18] MEDS: BUDESONIDE 0.5 MG/2 ML NEB INH ×2 (07:39→18:35)
[2025-11-18] MEDS: ALBUTEROL 2.5 MG/3 ML NEB (ADULT) INH ×4 (07:39→18:35)
--- NOTE | 2025-11-18 09:13 | P.PN_ITS ---
Subjective Subjective Date Patient Seen: 11/18/25 Time Patient Seen: 08:44 Interval history: Chief complaint: SOB Narrative: The pt is a 65 yo with COPD, hx of CVA, HTN who was admitted to [place] in late 2024 where she was admitted for syncope and was admitted again 2 weeks ago for COPD exacerbation and again last week for dizziness. Tonight she states she has worsening non-productive cough, SOB, dyspnea. There has been no nausea but she states that she has loose stools after she eats and sometimes vomits without nausea. No chest pain, no edema in legs, 11/18: She reports persistent wheezing and shortness of breath. She states some chest wall pain and requests Percocets. She notes vertigo when lying back and sitting up and states this has not responded to meclizine in the past. Exam: GENERAL: This is a well-nourished, well-developed patient, in mild respiratory distress with minimal exertion. EYES: Pupils equal round and reactive. Extraocular motions intact. No scleral icterus. No injection or drainage. ENT: Mucous membranes pink and moist. NECK: Trachea midline. No JVD, bruits or lymphadenopathy. Supple, nontender, no meningeal signs. CARDIOVASCULAR: Regular rate and rhythm without murmurs, gallops, or rubs. RESPIRATORY: Diffuse mid expiratory wheezes all lung neri, no accessory muscle use. GASTROINTESTINAL: Abdomen soft, non-tender, nondistended. EXTREMITIES: No clubbing, cyanosis, or edema. NEUROLOGIC: Alert, oriented, speech fluent, full upper and lower motor strength, no focal deficits evident. DERMATOLOGIC: No rashes or skin lesions. Chexrt xray 11/17/2025: Low lung volumes, but otherwise lungs are clear. Assessment & Plan narrative: 1. COPD exacerbation 2. HTN 3. hx of CVA, status post TNK 09/12/2025, with chronic mild right-sided weakness 4. obesity 5. DM 6. GERD 7. Benign positional vertigo, with recent hospitalization 11/06/2025-11/09/2025 with increased baseline right-sided weakness, with negative workup. Plan: -admit to inpatient -IV methylprednisolone 80 mg every 8 hours -DuoNebs -Percocet for associated chest wall pain -anticipate at least 2 midnights of inpatient level care. -plan to discharge on a long slow taper following discharge with outpatient follow-up DVT prophylaxis: Lovenox Code status: Full code. Her daughter is her surrogate decision maker Exam Vital Signs (past 8 hours): - 11/18/25 07:39 11/18/25 07:46 11/18/25 07:48 Temperature 96.6 F L Pulse Rate 86 92 H 86 Respiratory Rate 24 20 24 Blood Pressure 137/84 Pulse Oximetry 96 97 97 Oxygen Delivery Method Room Air Room Air Oxygen Flow Rate 0 Oxygen Delivery Method Room Air Oxygen Flow Rate 0 Objective Labs 11/18/25 04:50 11/18/25 04:50 Labs: Laboratory Results - last 24 hr 11/17/25 11/17/25 11/17/25 17:15 17:23 21:22 WBC 7.5 RBC 4.15 Hgb 11.6 L Hct 35.5 L MCV 85.6 MCH 28.0 MCHC 32.7 RDW 14.0 Plt Count 359 Neut % (Auto) 63.2 Lymph % (Auto) 26.2 [place] % (Auto) 7.6 Eos % (Auto) 2.0 Baso % (Auto) 1.0 Neut # (Auto) 4800 Lymph # (Auto) 2000 [place] # (Auto) 600 Eos # (Auto) 200 Baso # (Auto) 100 PT 10.5 INR 0.9 APTT 33 Sodium 140 Potassium 3.4 Chloride 103 Carbon Dioxide 27 BUN 14 Creatinine 0.64 Estimated GFR > 60 BUN/Creatinine Ratio 21.9 Glucose 118 H POC Whole Bld Glucose 156 H Calcium 9.1 Magnesium 2.0 Total Bilirubin 0.3 AST 34 ALT 23 Alkaline Phosphatase 97 Total Creatine Kinase 66 Troponin I < 0.012 NT-Pro-B Natriuret Pep 148 H Total Protein 7.6 Albumin 4.5 Globulin 3.1 Albumin/Globulin Ratio 1.5 Lipase 50 Chlamy pneumoniae PCR Not detected Adenovirus (PCR) Not detected B. pertussis DNA (PCR) Not detected B.parapertussis DNA PCR Not detected Coronavirus OC43 (PCR) Not detected Coronavirus HKU1 (PCR) Not detected Coronavirus 229E (PCR) Not detected SARS-CoV-2 (PCR) Not detected Coronavirus NL63 (PCR) Not detected Human Metapneumovir PCR Not detected Influenza Type A (PCR) Not detected Influenza Type B (PCR) Not detected M. pneumoniae (PCR) Not detected Parainfluenza 1 (PCR) Not detected Parainfluenza 2 (PCR) Not detected Parainfluenza 3 (PCR) Not detected Parainfluenza 4 (PCR) Not detected RSV (PCR) Not detected Entero/Rhino (PCR) Not detected 11/18/25 11/18/25 04:50 07:39 WBC 4.9 RBC 4.14 Hgb 11.7 L Hct 35.6 L MCV 86.1 MCH 28.2 MCHC 32.8 RDW 13.9 Plt Count 343 Neut % (Auto) 83.3 H D Lymph % (Auto) 14.9 L [place] % (Auto) 1.6 L Eos % (Auto) 0.0 L Baso % (Auto) 0.2 Neut # (Auto) 4100 Lymph # (Auto) 700 L [place] # (Auto) 100 Eos # (Auto) 0 Baso # (Auto) 0 PT INR APTT Sodium 140 Potassium 3.8 Chloride 105 Carbon Dioxide 27 BUN 17 Creatinine 0.58 Estimated GFR > 60 BUN/Creatinine Ratio 29.3 H Glucose 194 H POC Whole Bld Glucose 177 H Calcium 9.3 Magnesium Total Bilirubin AST ALT Alkaline Phosphatase Total Creatine Kinase Troponin I NT-Pro-B Natriuret Pep Total Protein Albumin Globulin Albumin/Globulin Ratio Lipase Chlamy pneumoniae PCR Adenovirus (PCR) B. pertussis DNA (PCR) B.parapertussis DNA PCR Coronavirus OC43 (PCR) Coronavirus HKU1 (PCR) Coronavirus 229E (PCR) SARS-CoV-2 (PCR) Coronavirus NL63 (PCR) Human Metapneumovir PCR Influenza Type A (PCR) Influenza Type B (PCR) M. pneumoniae (PCR) Parainfluenza 1 (PCR) Parainfluenza 2 (PCR) Parainfluenza 3 (PCR) Parainfluenza 4 (PCR) RSV (PCR) Entero/Rhino (PCR) [facility] Medical History DM2 (diabetes mellitus, type 2) Chronic narcotic dependence Insomnia CHF (congestive heart failure) Chronic pain History of CVA (cerebrovascular accident) Myocardial infarction Hepatic steatosis Drug-seeking behavior Seizures Peptic ulcer disease PTSD (post-traumatic stress disorder) Depression Easy bruisability Osteoarthritis GERD (gastroesophageal reflux disease) HLD (hyperlipidemia) HTN (hypertension) Asthma Hearing loss Prediabetes Other chronic pain Tinea pedis Pain in right hip Anxiety Coronary artery disease COPD (chronic obstructive pulmonary disease) Stroke (1999) Surgical History Hx of colonoscopy Hx of tonsillectomy History of surgery on wrist History of bilateral knee replacement Social History household members: none alcohol intake: former Assessment & Plan Time-Based Coding :: [TOTAL MINUTES] spent with patient and on the chart (including review of chart, obtaining history, exam, reviewing outside data, placing orders, documenting exam and treatment plan, and counseling patient) on [DATE]. Quality VTE Deep Vein Thrombosis/Pulmonary Embolism Present on Admission: No PROFEE Cmm Technician Document charge(s): No
--- NOTE | 2025-11-18 09:20 | CM.DANOTE ---
Initial DCP Assessment Note. Review EMR and PT Interview. Met with patient at bedside to discuss discharge needs.PT is alert x 4 sitting up in Bed. No acute distress. Dependent on DAQUAN CG. 115 HR/MO. Lives alone. Naima Tee (ph#[phone]) is usually pt's first choice for transport if available. Payor:??ELAINA PCP: Summary & Plan:?65 y/o female arrived to ED via EMS c.o SOB. Admitted INPT. Dx. COPD. Plan: wean steroids and PRN nebs. Discharge Planning/Care Management CM Discharge Assessment Start: 11/17/25 20:33 Freq: Status: Active Protocol: Document 11/18/25 09:18 (Rec: 11/18/25 09:19 [id number]) Discharge Planning Assessment Assigned Discharge Apurva Yancey RN CM Wagon Person Provider Dr. Hoffman Insurance Medicare Advance Directives? Yes: Yes/POLST Advance Directives No on File History Provided By Patient,Medical Record Has Patient been No admitted in last 30 days? Prior Living House Arrangements Household Members none Type of Relies on Others transporation used prior to admit Independent with ADL No 's Is patient alert and Yes oriented? Needs Assistance Bathing,Managing Medications,Home Chores / Shopping With Caregiver for No Another Community Services Home Health Aid,Transportation used prior to admission: DME Already Rented / FWW / Walker Owned Comment FWW, cane, and electric scooter Comment TBD Barriers to No Discharge Discharge Plan Home Transportation Family/Randal - [facility]aim[facility] Tomlinson or Medicaid transport Arrangement Referrals Initiated None needed Additional Comment Pt had poor experience with HH and wants home with her [facility] CGs Review Status In Process Please Provide Date 11/18/25 Initial DC Assessment Was Performed
[2025-11-18] MEDS: LORATADINE 10 MG TABLET PO (09:34)
[2025-11-18] MEDS: CLOPIDOGREL 75 MG TABLET PO (09:36)
[2025-11-18] MEDS: LOSARTAN 50 MG TABLET 100 MG PO (09:37)
[2025-11-18] MEDS: SERTRALINE 50 MG TABLET PO (09:39)
[2025-11-18] MEDS: SODIUM CHLORIDE 0.9% FLUSH 10 ML IV ×2 (09:41→20:09)
--- NOTE | 2025-11-18 10:43 | PC.NURSE ---
Pt sitting up in room, talking full sentences, family at the bedside, NAD, ordered her lunch, pt requesting pepsi to drink, ordered for lunch, no other needs at this time, call light within reach, will continue to monitor.
[2025-11-18] MEDS: ENOXAPARIN 40 MG/0.4 ML SYRINGE SUBCUT (11:58)
[2025-11-18] MEDS: INSULIN LISPRO 100 UNIT/ML 3ML VIAL SUBCUT ×2 (11:59→20:21)
--- NOTE | 2025-11-18 12:19 | PC.NURSE ---
Pt sitting up eating lunch, nad noted, educated the patient on the importance of a carb diet and increasing her water intake, pt verbalized understanding. Call light within reach, will continue to monitor.
[2025-11-18] MEDS: BENZONATATE 100 MG CAPSULE PO (14:50)
--- NOTE | 2025-11-18 15:02 | PC.NURSE ---
pt sitting up to the side of the bed, friend in the room visiting, N.A.D., will continue to monitor.
[2025-11-18] MEDS: guaiFENesin Solution 100 MG/5 ML UDC PO (18:10)
--- NOTE | 2025-11-18 18:40 | PC.NURSE ---
pt currently having a breathing treatment, tolerating well
[2025-11-18] MEDS: ATORVASTATIN 20 MG TABLET 80 MG PO (20:09)
[2025-11-18] MEDS: SENNOSIDES 8.6 MG TABLET 17.2 MG PO (20:09)
[2025-11-19] VITALS (9 sets, daily range): BP systolic 141–154; BP diastolic 74–75; PULSE 78–96; RESP 18–20; TEMP 36.4; O2SAT 95–99
--- NOTE | 2025-11-19 00:16 | RT ---
pt is sleeping with no signs of distress no audible wheezing present and is hymodynamically stable at this time. Nurse is aware
[2025-11-19] MEDS: methylPREDNISolone succ 125 MG/2 ML VIAL 80 MG IV ×3 (04:32→20:18)
[2025-11-19] MEDS: PANTOPRAZOLE DR 20 MG TABLET PO (06:17)
[2025-11-19] MEDS: ALBUTEROL 2.5 MG/3 ML NEB (ADULT) INH ×4 (07:09→22:44)
[2025-11-19] MEDS: BUDESONIDE 0.5 MG/2 ML NEB INH ×2 (07:09→18:09)
[2025-11-19] MEDS: ENOXAPARIN 40 MG/0.4 ML SYRINGE SUBCUT (08:55)
[2025-11-19] MEDS: LOSARTAN 50 MG TABLET 100 MG PO (08:55)
[2025-11-19] MEDS: LORATADINE 10 MG TABLET PO (08:56)
[2025-11-19] MEDS: CLOPIDOGREL 75 MG TABLET PO (08:56)
[2025-11-19] MEDS: SERTRALINE 50 MG TABLET PO (08:56)
[2025-11-19] MEDS: SODIUM CHLORIDE 0.9% FLUSH 10 ML IV ×2 (08:57→12:22)
[2025-11-19] MEDS: INSULIN LISPRO 100 UNIT/ML 3ML VIAL SUBCUT ×3 (08:58→16:51)
--- NOTE | 2025-11-19 10:46 | CM.DPC ---
DCP Cont: Per MD, pt improving but anticipates another 1-2 days to wean off the steroids for her COPD then plan of home with no needs anticipated. Pt currently on room air. Per RN, pt independent in room and no identified need for PT at this time. Elsie Oh MSW
--- NOTE | 2025-11-19 11:30 | PM.PN.IH.1 ---
Subjective Subjective Date Patient Seen: 11/19/25 Time Patient Seen: 08:08 Interval history: Chief complaint: SOB Narrative: The pt is a 65 yo with COPD, hx of CVA, HTN who was admitted to [place] in late 2024 where she was admitted for syncope and was admitted again 2 weeks ago for COPD exacerbation and again last week for dizziness. Tonight she states she has worsening non-productive cough, SOB, dyspnea. There has been no nausea but she states that she has loose stools after she eats and sometimes vomits without nausea. No chest pain, no edema in legs, 11/18: She reports persistent wheezing and shortness of breath. She states some chest wall pain and requests Percocets. She notes vertigo when lying back and sitting up and states this has not responded to meclizine in the past. 11/19: Patient reports persistent wheezing and shortness of breath. She is in good spirits. She states pain is adequately controlled. Exam: GENERAL: This is a well-nourished, well-developed patient, in mild respiratory distress with minimal exertion. EYES: Pupils equal round and reactive. Extraocular motions intact. No scleral icterus. No injection or drainage. ENT: Mucous membranes pink and moist. NECK: Trachea midline. No JVD, bruits or lymphadenopathy. Supple, nontender, no meningeal signs. CARDIOVASCULAR: Regular rate and rhythm without murmurs, gallops, or rubs. RESPIRATORY: Diffuse mid expiratory wheezes all lung neri, no accessory muscle use. GASTROINTESTINAL: Abdomen soft, non-tender, nondistended. EXTREMITIES: No clubbing, cyanosis, or edema. NEUROLOGIC: Alert, oriented, speech fluent, full upper and lower motor strength, no focal deficits evident. DERMATOLOGIC: No rashes or skin lesions. Chexrt xray 11/17/2025: Low lung volumes, but otherwise lungs are clear. Assessment & Plan narrative: 1. COPD exacerbation. Negative viral respiratory panel 2. HTN 3. hx of CVA, status post TNK 09/12/2025, with chronic mild right-sided weakness 4. obesity 5. DM 6. GERD 7. Benign positional vertigo, with recent hospitalization 11/06/2025-11/09/2025 with increased baseline right-sided weakness, with negative workup. Plan: -admit to inpatient -IV methylprednisolone 80 mg every 8 hours -DuoNebs -Percocet for associated chest wall pain -sliding scale insulin coverage -anticipate at least 2 midnights of inpatient level care. -plan to discharge on a long slow taper following discharge with outpatient follow-up DVT prophylaxis: Lovenox Code status: Full code. Her daughter is her surrogate decision maker Exam Vital Signs (past 8 hours): - 11/19/25 07:10 11/19/25 08:00 11/19/25 08:55 Temperature 97.5 F L Pulse Rate 83 78 Respiratory Rate 20 18 Blood Pressure 141/75 H 141/75 H Pulse Oximetry 98 95 Oxygen Delivery Method Room Air Oxygen Flow Rate 0 11/19/25 08:56 Temperature Pulse Rate Respiratory Rate Blood Pressure 141/75 H Pulse Oximetry Oxygen Delivery Method Oxygen Flow Rate Oxygen Delivery Method Room Air Oxygen Flow Rate 0 Objective Labs 11/18/25 04:50 11/18/25 04:50 Labs: Laboratory Results - last 24 hr 11/18/25 11/18/25 11/18/25 11:16 16:20 20:15 POC Whole Bld Glucose 233 H 114 H D 358 H D 11/19/25 11/19/25 07:32 11:24 POC Whole Bld Glucose 169 H D 149 H PFSH Medical History DM2 (diabetes mellitus, type 2) Chronic narcotic dependence Insomnia CHF (congestive heart failure) Chronic pain History of CVA (cerebrovascular accident) Myocardial infarction Hepatic steatosis Drug-seeking behavior Seizures Peptic ulcer disease PTSD (post-traumatic stress disorder) Depression Easy bruisability Osteoarthritis GERD (gastroesophageal reflux disease) HLD (hyperlipidemia) HTN (hypertension) Asthma Hearing loss Prediabetes Other chronic pain Tinea pedis Pain in right hip Anxiety Coronary artery disease COPD (chronic obstructive pulmonary disease) Stroke (1999) Surgical History Hx of colonoscopy Hx of tonsillectomy History of surgery on wrist History of bilateral knee replacement Social History household members: none Smoking Status: Former smoker alcohol intake: former Assessment & Plan Time-Based Coding :: [TOTAL MINUTES] spent with patient and on the chart (including review of chart, obtaining history, exam, reviewing outside data, placing orders, documenting exam and treatment plan, and counseling patient) on [DATE]. Quality VTE Deep Vein Thrombosis/Pulmonary Embolism Present on Admission: No IH PROFEE Manager Crisis Document charge(s): No Charge Codes Subsequent inpatient/observation care: [id number]
[2025-11-19] MEDS: CALCIUM CARBONATE 500 MG TAB 1000 MG PO (15:06)
[2025-11-19] MEDS: SENNOSIDES 8.6 MG TABLET 17.2 MG PO (20:21)
[2025-11-19] MEDS: ATORVASTATIN 20 MG TABLET 80 MG PO (20:21)
[2025-11-20] VITALS (7 sets, daily range): BP systolic 171–188; BP diastolic 77–83; PULSE 73–92; RESP 16–19; TEMP 35.9–36.3; O2SAT 97–99
[2025-11-20] MEDS: methylPREDNISolone succ 125 MG/2 ML VIAL 80 MG IV ×3 (04:58→21:16)
--- NOTE | 2025-11-20 05:32 | PM.PN.1 ---
Subjective Subjective Interval history: A&P 65-year-old with COPD, history of CVA, and hypertension who presented on 11/18/2025 with worsening nonproductive cough and shortness of breath. Patient is now on room air and independent with ADLs in her room. COPD exacerbation Chest wall pain Respiratory viral panel negative. Now on room air. Continues to have subjective dyspnea but does not have exertional hypoxia. Transitioned from Solu-Medrol to oral prednisone Continue DuoNeb Continue Percocet as needed for chest wall pain Diabetes mellitus Currently uncontrolled, likely due to steroids Add Lantus HS Taper steroids Hypertension Continue amlodipine, carvedilol, losartan History of CVA, status post TNK 09/12/2025 Residual mild right-sided weakness Continue clopidogrel, cilostazol is non formulary but patient can resume at discharge Manage blood pressure and glucose Code Status: Full code Diet: Carb controlled Lines/Tubes: Peripheral IV DVT Prophylaxis: Enoxaparin Discharge Planning: Stable for discharge to home today. However patient reports that she does not have a caregiver for today and does not feel safe discharging to home. She reports that there is no family to care for her this evening because they are either traveling or at a . She will discharge in the morning. I have asked her to call her caregiver agency to ensure that there is a caregiver available tomorrow by 9:00 a.m.. Chief Complaint: Shortness of breath Subjective: The patient reports intermittent chest wall pain. Continues to feel short of breath though does not have hypoxia. Otherwise review of systems negative. Objective A&O, WN, WD, NAD NCAT, OP moist, neck supple RRR, nl S1 and S2, no murmurs Scattered rhonchi, adequate air flow, normal work of breathing Soft, NT, ND, +BS Warm without edema Neuro grossly nonfocal Pleasant, cooperative Labs: No new labs in the last 48 hours Imaging: No new imaging Time: 55 minute spent with patient and on the chart (including review of chart, obtaining history, exam, reviewing outside data, placing orders, documenting exam and treatment plan, and counseling patient). Exam Vital Signs (past 8 hours): - 11/19/25 22:45 Pulse Rate 96 H Respiratory Rate 20 Pulse Oximetry 95 Oxygen Delivery Method Room Air Fraction of Inspired Oxygen 21 Fraction of Inspired Oxygen 21 SaO2/FiO2 Ratio 461 Oxygen Delivery Method Room Air Oxygen Flow Rate 0 Objective Labs 12/20/25 04:50 11/18/25 04:50 Labs: Laboratory Results - last 24 hr 11/19/25 11/19/25 11/19/25 07:32 11:24 16:36 POC Whole Bld Glucose 169 H D 149 H 290 H D 11/19/25 21:45 POC Whole Bld Glucose 150 H D [facility] Medical History DM2 (diabetes mellitus, type 2) Chronic narcotic dependence Insomnia CHF (congestive heart failure) Chronic pain History of CVA (cerebrovascular accident) Myocardial infarction Hepatic steatosis Drug-seeking behavior Seizures Peptic ulcer disease PTSD (post-traumatic stress disorder) Depression Easy bruisability Osteoarthritis GERD (gastroesophageal reflux disease) HLD (hyperlipidemia) HTN (hypertension) Asthma Hearing loss Prediabetes Other chronic pain Tinea pedis Pain in right hip Anxiety Coronary artery disease COPD (chronic obstructive pulmonary disease) Stroke (1999) Surgical History Hx of colonoscopy Hx of tonsillectomy History of surgery on wrist History of bilateral knee replacement Social History household members: none Smoking Status: Former smoker alcohol intake: former Assessment & Plan Time-Based Coding :: [TOTAL MINUTES] spent with patient and on the chart (including review of chart, obtaining history, exam, reviewing outside data, placing orders, documenting exam and treatment plan, and counseling patient) on [DATE]. Quality VTE Deep Vein Thrombosis/Pulmonary Embolism Present on Admission: No
[2025-11-20] MEDS: PANTOPRAZOLE DR 20 MG TABLET PO (06:29)
[2025-11-20] MEDS: LORATADINE 10 MG TABLET PO (08:16)
[2025-11-20] MEDS: LOSARTAN 50 MG TABLET 100 MG PO (08:16)
[2025-11-20] MEDS: SERTRALINE 50 MG TABLET PO (08:16)
[2025-11-20] MEDS: ENOXAPARIN 40 MG/0.4 ML SYRINGE SUBCUT (08:16)
[2025-11-20] MEDS: CLOPIDOGREL 75 MG TABLET PO (08:16)
[2025-11-20] MEDS: INSULIN LISPRO 100 UNIT/ML 3ML VIAL SUBCUT ×3 (08:17→16:53)
[2025-11-20] MEDS: SODIUM CHLORIDE 0.9% FLUSH 10 ML IV ×2 (08:39→21:17)
[2025-11-20] MEDS: ALBUTEROL 2.5 MG/3 ML NEB (ADULT) INH ×4 (08:44→22:32)
[2025-11-20] MEDS: BUDESONIDE 0.5 MG/2 ML NEB INH ×2 (08:44→18:32)
--- NOTE | 2025-11-20 15:53 | CM.DPC ---
DCP Discharge Home Per MD, pt has made progress and could likely d/c home today but plan is for discharge tomorrow to confirm safe d/c plan with caregivers in place. KEENAN spoke to pt's [facility] casemanager February and updated her on plan of discharge tomorrow and she is working to confirm pt will have a caregiver available for discharge home tomorrow 11/21. CHARLY Feldman
[2025-11-20] MEDS: SENNOSIDES 8.6 MG TABLET 17.2 MG PO (21:16)
[2025-11-20] MEDS: INSULIN GLARGINE 100 UNIT/ML 3ML PEN 15 UNIT SUBCUT (21:17)
[2025-11-20] MEDS: ATORVASTATIN 20 MG TABLET 80 MG PO (21:17)
[2025-11-21 02:00] VITALS: BP 171/70; PULSE 58; RESP 20; O2SAT 98
--- NOTE | 2025-11-21 02:12 | PC.NURSE ---
BP 171/70. Pt complaining of headache. Percocet given for headache 05/[address] Li for PRN BP meds. Let's monitor for now No new orders at this time.
[2025-11-21] MEDS: PANTOPRAZOLE DR 20 MG TABLET PO (06:12)
[2025-11-21 07:00] VITALS: BP 175/70; PULSE 66; RESP 16; TEMP 36.1; O2SAT 100
[2025-11-21] MEDS: ALBUTEROL 2.5 MG/3 ML NEB (ADULT) INH (07:34)
[2025-11-21] MEDS: BUDESONIDE 0.5 MG/2 ML NEB INH (07:34)
[2025-11-21 07:38] VITALS: PULSE 90; RESP 18; O2SAT 99
--- NOTE | 2025-11-21 08:30 | PM.DS.1 ---
History of Present Illness History of Present Illness Date Patient Seen: 11/21/25 Time Patient Seen: 08:30 Date of Onset of Symptoms: 11/17/25 Chief complaint: SOB Narrative: Discharge diagnoses COPD exacerbation Chest wall pain Diabetes mellitus Hypertension History of CVA, status post TNK on 09/12/2025 Residual mild right-sided weakness Hospital course 65-year-old with COPD, history of CVA, and hypertension who presented on 11/18/2025 with worsening nonproductive cough and shortness of breath. She was diagnosed with a COPD exacerbation and chest wall pain related to coughing and respiratory distress. She was treated with Solu-Medrol, nebulizers, and Percocet as needed chest wall pain. She did well with that management and was transitioned to prednisone this morning. Over the last 24 hours she has been on room air and independent in the room. From a respiratory standpoint she is stable for discharge to home. She will discharge to home on a longer than usual prednisone taper due to concerns about recurrent symptoms and readmission. She will take 60 mg daily x5 days then 40 mg daily x5 days then 20 mg daily x5 days Code Status: Full code Diet: Carb controlled Lines/Tubes: Peripheral IV DVT Prophylaxis: Enoxaparin Subjective: No overnight events. No complaints at this time. Review of systems negative. Objective A&O, WN, WD, NAD NCAT, OP moist, neck supple RRR, nl S1 and S2, no murmurs Scattered rhonchi, adequate air flow, normal work of breathing Soft, NT, ND, +BS Warm without edema Neuro grossly nonfocal Pleasant, cooperative Labs: No new labs in the last 48 hours Imaging: No new imaging in the last 48 hours Time: 45 minutesspent with patient and on the chart (including review of chart, obtaining history, exam, reviewing outside data, placing orders, documenting exam and treatment plan, and counseling patient). Discharge Providers Provider Date of admission: 11/17/25 19:19 Discharge Date: 11/21/25 Primary care physician: Nahomi Hoffman MD Discharge provider: Felecia Archibald MD Exam Vital Signs (past 8 hours): - 11/21/25 02:00 11/21/25 07:00 11/21/25 07:38 Temperature 96.9 F L Pulse Rate 58 L 66 90 Respiratory Rate 20 16 18 Blood Pressure 171/70 H 175/70 H Pulse Oximetry 98 100 99 Oxygen Delivery Method Room Air Fraction of Inspired Oxygen 21 Fraction of Inspired Oxygen 21 SaO2/FiO2 Ratio 471 Oxygen Delivery Method Room Air Oxygen Flow Rate 0 Objective Labs 11/18/25 04:50 11/18/25 04:50 Labs: Laboratory Results - last 24 hr 11/20/25 11/20/25 11/20/25 11:28 16:49 19:41 POC Whole Bld Glucose 179 H 201 H 183 H 11/21/25 07:55 POC Whole Bld Glucose 124 H PFSH Medical History DM2 (diabetes mellitus, type 2) Chronic narcotic dependence Insomnia CHF (congestive heart failure) Chronic pain History of CVA (cerebrovascular accident) Myocardial infarction Hepatic steatosis Drug-seeking behavior Seizures Peptic ulcer disease PTSD (post-traumatic stress disorder) Depression Easy bruisability Osteoarthritis GERD (gastroesophageal reflux disease) HLD (hyperlipidemia) HTN (hypertension) Asthma Hearing loss Prediabetes Other chronic pain Tinea pedis Pain in right hip Anxiety Coronary artery disease COPD (chronic obstructive pulmonary disease) Stroke (1999) Surgical History Hx of colonoscopy Hx of tonsillectomy History of surgery on wrist History of bilateral knee replacement Social History household members: none Smoking Status: Former smoker alcohol intake: former Discharge Plan Discharge Plan Patient Disposition: Home Health Service Discharge orders & Medications Prescriptions: New prednisone 20 mg tablet See Rx Instructions .ROUTE .COMPLEX Qty: 30 0RF Rx Instructions: 3 tablets daily for 5 days, then 2 tablets daily for 5 days, then 1 tablet daily for 5 days oxycodone-acetaminophen [Percocet] 5-325 mg tablet 1 tab PO Q4H PRN (Reason: pain) Qty: 15 0RF lorazepam 0.5 mg tablet 0.5 mg PO .q4 hours PRN (Reason: anxiety) Qty: 15 0RF Continued (DME) True Metrix Glucose Test Strip Strip See Rx Instructions .Route Qty: 100 2RF Rx Instructions: As directed (DME) glucose test strips See Rx Instructions .ROUTE .MEDSUPPLY Qty: 400 0RF Rx Instructions: to test 4 times daily True Metrix brand cetirizine 10 mg tablet 10 mg PO DAILY cyclobenzaprine 10 mg tablet 10 mg PO TID PRN (Reason: muscle spasm) Qty: 90 2RF atorvastatin 40 mg tablet 80 mg PO BEDTIME Qty: 90 3RF carvedilol 3.125 mg tablet 3.125 mg PO BID Qty: 180 3RF clopidogrel 75 mg tablet 75 mg PO DAILY Qty: 90 3RF Rx Instructions: takes in the evening hydrochlorothiazide 25 mg tablet 25 mg PO DAILY Qty: 90 3RF hydroxyzine HCl 25 mg tablet 25 mg PO TID PRN (Reason: Anxiety) Qty: 60 0RF ipratropium bromide 21 mcg (0.03 %) spray,non-aerosol 2 spray intranasal BID Qty: 30 0RF lidocaine 5 % adhesive patch,medicated 1 patch TOPICAL DAILY PRN (Reason: Pain) Qty: 30 0RF Rx Instructions: leave on most painful area for up to 12 hrs losartan 100 mg tablet 100 mg PO QAM Qty: 90 3RF metformin 500 mg tablet extended release 24 hr 500 mg PO DAILY Qty: 90 3RF sertraline 50 mg tablet 50 mg PO QAM Qty: 90 3RF trazodone 50 mg tablet 50 mg PO ONCE PM Qty: 90 0RF fluticasone furoate-vilanterol [Breo Ellipta] 200-25 mcg/dose blister with device 1 inh inhalation DAILY Qty: 60 0RF amlodipine 5 mg tablet 5 mg PO DAILY Qty: 90 0RF cilostazol 50 mg tablet 100 mg PO BID Qty: 60 2RF oxycodone-acetaminophen [Percocet] 5-325 mg tablet 1 tab PO Q4-6H PRN (Reason: pain) Qty: 16 0RF naloxone [Narcan] 4 mg/actuation spray,non-aerosol 4 mg intranasal Q2M PRN (Reason: opioid overdose) Qty: 2 0RF Rx Instructions: spray 1 dose into ONE nostril; alternate nostrils w each dose until help arrives acetaminophen 500 mg tablet 1,000 mg PO Q12H albuterol sulfate 90 mcg/actuation HFA aerosol inhaler 2 puff inhalation Q4H PRN (Reason: Wheezing) benzonatate 100 mg Capsule 100 mg PO TID PRN (Reason: Cough) Qty: 60 1RF Follow up/Referrals: Nahomi Hoffman MD [Primary Care Provider, Family Practice] Diet/Activity/Treatments Diet: Diet as Tolerated Visit Report/Discharge Packet Stand Alone Forms: [employer], Patient Portal/API, Stroke Signs & Symptoms, Influenza Vaccine Info, Notice of Privacy Practices, Inpatient vs Outpatient, Pneumococcal Vaccine Info, Pt. Rights & Responsibilities Discharge Data Primary Care Provider: Nahomi Hoffman Quality VTE Deep Vein Thrombosis/Pulmonary Embolism Present on Admission: No
[2025-11-21] MEDS: CLOPIDOGREL 75 MG TABLET PO (08:55)
[2025-11-21] MEDS: LORATADINE 10 MG TABLET PO (08:55)
[2025-11-21] MEDS: SERTRALINE 50 MG TABLET PO (08:55)
[2025-11-21] MEDS: LOSARTAN 50 MG TABLET 100 MG PO (08:55)
[2025-11-21] MEDS: ACETAMINOPHEN 325 MG TABLET 650 MG PO (09:04)
--- NOTE | 2025-11-21 10:59 | CM.DPNOTE ---
DCP Continued: Reviewed EMR and team rounds for pt?s medical status. Per hospitalist, pt cleared to discharge home today. No discharge needs identified, [facility] Operations Officer, February, has been briefed of plans for dc home today to coordinate caregivers in home. Plan: Anticipating dc home with caregiver to transport. CM Team will continue to follow for coordination of discharge plans. YISSEL Durham
--- NOTE | 2025-11-21 11:44 | PC.NURSE ---
pt verbalizes understanding of discharge instructions and medications. She is escorted via w/ch with her home caregiver to [facility] at 0945 a.m. were she awaited with him for discharge meds, and then he transported her to private vehicle for discharge home with all of her belongings
== END 2025-11-21 09:40 | disposition home health service (06) | DRG 191 ==
LOC: ED 18:02 → AC 19:19
PROVIDERS: Emergency Medicine; Admitting Provider Internal Medicine; Emergency Provider Physician Assistant; PCP Family Medicine; Referring Provider Physician Assistant; Visit Provider Internal Medicine
DX: J44.1 Chronic obstructive pulmonary disease with (acute) exacerbation (principal); I69.351 Hemiplegia and hemiparesis following cerebral infarction affecting right dominant side; I10 Essential (primary) hypertension; E66.9 Obesity, unspecified; E11.9 Type 2 diabetes mellitus without complications; K21.9 Gastro-esophageal reflux disease without esophagitis; H81.10 Benign paroxysmal vertigo, unspecified ear; R07.89 Other chest pain; E78.5 Hyperlipidemia, unspecified; R11.2 Nausea with vomiting, unspecified; G89.29 Other chronic pain; I25.10 Atherosclerotic heart disease of native coronary artery without angina pectoris; F32.A Depression, unspecified; G47.00 Insomnia, unspecified; Z79.84 Long term (current) use of oral hypoglycemic drugs; Z87.891 Personal history of nicotine dependence; Z79.02 Long term (current) use of antithrombotics/antiplatelets; Z68.36 Body mass index [BMI] 36.0-36.9, adult
CPT/HCPCS: 36415; 71045; 80048; 80053; 81003; 82550; 82962; 83690; 83735; 83880; 84484; 85025; 85610; 85730; 87633; 93005; 93010; 94640; 94760; 94762; 96374; 96375; 99284; A9270; J1650; J1815; J2405; J2919; J7613

== ENCOUNTER 2025-11-27 15:20 | Observation (INO) | payer MEDICARE, MEDICAID, SELFPAY ==
[2025-11-17 20:42] VITALS: BMI 36.6
[2025-11-27] VITALS (32 sets, daily range): BP systolic 121–177; BP diastolic 58–90; PULSE 84–123; RESP 18–51; TEMP 36.8; O2SAT 94–100; BMI 36.2
--- OUTSIDE RECORDS SUMMARY | 2025-11-27 15:23 | XMS_ITS | Encounter Summary ---
Author Organization [facility] Address [address] [place] [address] Care Team Providers Care Rfid Systems Architect Name Role Phone Pcp, Unknown Primary Care Provider Nahomi Sampson MD Primary Care Provider Encounter Details Date Type Department Care Team (Late st Contact Info) Description 02/13/2025 Orders Only Medicine Radiology Medicine, [id number], [place] [address] [place] [address] External, Imaging Ordering Provider [address] [facility] [id number] [place] [address] Social History Tobacco Use Types Packs/Day Years Used Date Smoking Tobacco: Never Assessed Comments Unknown Sex and Gender Information Value Date Recorded Sex Assigned at Female 07/13/2023 12:24 PM PDT Legal Sex Female 12:24 PM PDT Gender Identity Female 07/13/2023 12:24 PM PDT Sexual Orientation Straight 09/17/2025 11 :12 AM PDT documented as of this encounter Plan of Treatment Upcoming Encounters Date Type Department Care Team (Late st Contact Info) Description 05/01/2026 12:00 PM PDT Office Visit [facility] [address] [place] [id number] Scheduled Orders Name Type Priority Associated Diagnoses Orde r Schedule [id number] Images are Ready Imaging Or dered: 10/12/2025 documented as of this encounter Visit Diagnoses Not on filedocumented in this encounter Additional Health Concerns Infection Onset Date Last Indicated Resolved Time R/O Respiratory Comment: Isolation: droplet contact This patient has a respiratory panel pending. Ensure good patient masking for this patient and roommate(s) if applicable - private room recommended while pending full respiratory panel results. Primary team or nursing can clear isolation if the swab results negative and there are no further respiratory concerns. 09/12/2025 09/12/2025 09/13/2025 10:11 A Raz NGUYEN documented as of this encounter Care Teams Rfid Systems Architect Relationship Specialty Start Date End Date Pcp, Unknown A patient who has a PCP but is unsure of the name PCP - General 09/12/25 09/17/25 Nahomi Hoffman MD [address] [place] [address], [place] [address] PCP - General Family Practice 09/18/25 documented as of this encounter
--- NOTE | 2025-11-27 16:04 | EKG_ITS ---
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
--- NOTE | 2025-11-27 16:06 | DI.RAD.S_ITS ---
PROCEDURE: XR CHEST 2V INDICATIONS: sob TECHNIQUE: 2 views of the chest were acquired. COMPARISON: [facility], CR, XR CHEST 1V, 11/06/2025, 12:03. [facility], CR, XR CHEST 1V, 11/17/2025, 17:14. FINDINGS: Surgical changes and devices: None. Lungs and pleura: Lungs are clear. Stable contour of the left hemidiaphragm. No pleural effusions or pneumothorax. Mediastinum: Mediastinal contours are normal. Heart size is normal. Bones and chest wall: No suspicious bony abnormalities. Soft tissues appear unremarkable. IMPRESSION: No acute cardiopulmonary abnormality is seen. Approved by: Robert Daugherty M.D. on 11/27/2025 at 16:45
--- NOTE | 2025-11-27 16:11 | ED_ITS ---
HPI - Chest Pain <Jolene Bashir MD - Last Filed: 11/29/25 01:44> General Chief Complaint: Chest Pain Stated Complaint: returning, HBP, body aches, cough Time Seen by Provider: 11/27/25 15:24 Source: patient Mode of arrival: Ambulatory Limitations: no limitations Related Data Home Medications ?Medication ?Instructions ?Recorded ?Confirmed albuterol sulfate 90 mcg/actuation 2 puff inhalation Q 4H PRN Wheezing 11/26/24 11/28/25 aerosol inhaler Previous Rx's ?Medication ?Instructions ?Recorded benzonatate 100 mg capsule 100 mg PO TID PRN Cough #60 caps 08/22/25 atorvastatin 40 mg tablet 80 mg (2 x 40 mg) PO BEDTIME #90 08/30/25 tabs carvedilol 3.125 mg tablet 3.125 mg PO BID #180 tabs 1 clopidogrel 75 mg tablet 75 mg PO DAILY #90 tabs 12/24 cyclobenzaprine 10 mg tablet 10 mg PO TID PRN muscle s pasm #90 08/30/25 tabs hydrochlorothiazide 25 mg tablet 25 mg PO DAILY #90 ta bs 08/30/25 hydroxyzine HCl 25 mg tablet 25 mg PO TID PRN Anxiety #60 tabs 08/30/25 ipratropium bromide 21 mcg (0.03 2 spray intranasal BI D #30 mL 08/30/25 %) nasal spray lidocaine 5 % topical patch 1 patch topical DAILY PRN Pain #30 08/30/25 ea losartan 100 mg tablet 100 mg PO QAM #90 tabs 08/30 metformin 500 mg tablet,extended 500 mg PO DAILY #90 t abs 08/30/25 release 24 hr sertraline 50 mg tablet 50 mg PO QAM #90 tabs trazodone 50 mg tablet 50 mg PO ONCE PM #90 tabs fluticasone furoate 200 1 inh inhalation DAILY #60 e a 09/25/25 mcg-vilanterol 25 mcg/dose inhalation powder (Breo Ellipta) blood sugar diagnostic (True #100 ea 10/02/25 Metrix Glucose Test Strip) glucose test strips #400 ea 10/02/25 naloxone 4 mg/actuation nasal 4 mg intranasal Q2M PRN opioid 10/31/25 spray (Narcan) overdose #2 ea oxycodone-acetaminophen 5 mg-325 1 tab PO Q4-6H PRN pa in #16 tabs 10/31/25 mg tablet (Percocet) amlodipine 5 mg tablet 5 mg PO DAILY #90 tabs 11/02 cilostazol 50 mg tablet 100 mg (2 x 50 mg) PO BID #6 0 tabs 11/02/25 lorazepam 0.5 mg tablet 0.5 mg PO .q4 hours PRN anxi ety 11/21/25 #15 tabs oxycodone-acetaminophen 5 mg-325 1 tab PO Q4H PRN pain #15 tabs 11/21/25 mg tablet (Percocet) prednisone 20 mg tablet See Rx Instructions .Route 1 01/22/25 .COMPLEX #30 tabs Allergies Allergy/AdvReac Type Severity Reaction Status Date / Time aspirin (ASPIRIN) Allergy Severe Throat Verified 11/27/25 15:48 closes, eye itching, difficulty breathing buprenorphine (From Suboxone) Allergy Severe Throat Verified 11/27/25 15:48 closing, vomiting ibuprofen (IBUPROFEN) Allergy Severe Throat Verified 11/27/25 15:48 closes, eye itching, difficulty breathing ketorolac (From TORADOL) Allergy Severe Throat Verified 11/27/25 15:48 closes, eye itching, difficulty breathing methadone Allergy Severe Hard time Verified 11/27/25 15:48 breathing, my vital signs were dropping naloxone (From Suboxone) Allergy Severe Throat Verified 11/27/25 15:48 closing, vomiting NSAIDS (Non-Steroidal Allergy Severe Throat Verified 11/17/25 17:05 Anti-Inflamma closes, eye itching, difficulty breathing tramadol (TRAMADOL) Allergy Severe Rash, my Verified 11/27/25 15:48 throat was closing duloxetine Allergy Rash Verified 11/27/25 15:48 gabapentin AdvReac Gastrointestinal Verified 11/27/25 15:48 Upset <Manav Oliveira MD - Last Filed: 11/28/25 05:25> History of Present Illness HPI narrative: 65-year-old female with history of COPD, had recent course of prednisone as an outpatient, feels more short of breath, with lightheaded and dizziness, and chest discomfort worse with coughing. She had recent fall with left hip pain but able to bear weight and ambulate. Feels short of breath with minimal activity, no longer on prednisone course from last week for her COPD. Review of Systems <Jolene Bashir MD - Last Filed: 11/29/25 01:44> Review of Systems ROS Unobtainable: All systems reviewed & are unremarkable except as noted in HPI and below Patient History <Jolene Bashir MD - Last Filed: 11/29/25 01:44> Medical History DM2 (diabetes mellitus, type 2) Chronic narcotic dependence Insomnia CHF (congestive heart failure) Chronic pain History of CVA (cerebrovascular accident) Myocardial infarction Hepatic steatosis Drug-seeking behavior Seizures Peptic ulcer disease PTSD (post-traumatic stress disorder) Depression Easy bruisability Osteoarthritis GERD (gastroesophageal reflux disease) HLD (hyperlipidemia) HTN (hypertension) Asthma Hearing loss Prediabetes Other chronic pain Tinea pedis Pain in right hip Anxiety Coronary artery disease COPD (chronic obstructive pulmonary disease) Stroke (1999) Surgical History Hx of colonoscopy Hx of tonsillectomy History of surgery on wrist History of bilateral knee replacement Social History household members: none Smoking Status: Former smoker alcohol intake: former Smoking Status: Former smoker tobacco type: cigarettes alcohol intake frequency: holidays/special occasions only Exam <Jolene Bashir MD - Last Filed: 11/29/25 01:44> Initial Vital Signs Initial Vital Signs: Vital Signs Temperature 98.3 F 11/27/25 15:50 Pulse Rate 94 H 11/27/25 15:50 Respiratory Rate 18 11/27/25 15:50 Blood Pressure 168/74 H 11/27/25 15:50 Pulse Oximetry 97 11/27/25 15:50 Oxygen Delivery Method Room Air 11/27/25 15:50 <Manav Oliveira MD - Last Filed: 11/28/25 05:25> Narrative Exam Narrative: GENERAL: Well-developed patient, in mild distress. HEAD: Atraumatic. Normocephalic. EYES: Pupils equal round and reactive. Extraocular motions intact. No scleral icterus. No injection or drainage. ENT: Nose without bleeding, purulent drainage. Throat without erythema, tonsillar hypertrophy or exudate. Airway patent. NECK: Trachea midline. Non tender CARDIOVASCULAR: Regular rate and rhythm without murmurs, gallops, or rubs. RESPIRATORY: Wheezing bilateral lung neri, able to speak in full sentences, some suprasternal retractions noted. Feels quite short of breath walking from gurney to bedside commode. GASTROINTESTINAL: Abdomen soft, non-tender, nondistended. EXTREMITIES: No edema or joint tenderness. BACK: Nontender without deformity or crepitance. No flank tenderness. NEURO: AOx3. Motor functions grossly nonfocal. SKIN: No rash or erythema of visible areas Initial Vital Signs Initial Vital Signs: Vital Signs Temperature 98.3 F 11/27/25 15:50 Pulse Rate 94 H 11/27/25 15:50 Respiratory Rate 18 11/27/25 15:50 Blood Pressure 168/74 H 11/27/25 15:50 Pulse Oximetry 97 11/27/25 15:50 Oxygen Delivery Method Room Air 11/27/25 15:50 Course <Jolene Bashir MD - Last Filed: 11/29/25 01:44> Orders Ordered: ED Orders 11/28/25 18:06 Complete Blood Count AUTO DIFF Q4H 11/28/25 22:00 Complete Blood Count AUTO DIFF Q4H Acetaminophen (Acetaminophen 325 Mg Tablet) 650 mg PO Q6H PRN PRN Reason: Fever/Mild Pain (1-3) Last Admin: 11/28/25 08:30 Dose: 650 mg Documented By: ESV Albuterol (Albuterol 2.5 Mg/3 Ml Neb (Adult)) 2.5 mg INH Q2HR PRN PRN Reason: Shortness Of Breath Albuterol/Ipratropium (Albuterol/Ipratropium 3 Ml Ampul) 3 ml INH [id number] [facility] Last Admin: 11/28/25 19:22 Dose: 3 ml Documented By: Admin: 11/28/25 13:46 Dose: 3 ml Documented By: Admin: 11/28/25 07:22 Dose: 3 ml Documented By: PAU Amlodipine Besylate (Amlodipine 5 Mg Tablet) 5 mg PO DAILY [facility] Last Admin: 11/28/25 08:29 Dose: 5 mg Documented By: ESV Atorvastatin Calcium (Atorvastatin 20 Mg Tablet) 80 mg PO BEDTIME [facility] Last Admin: 11/28/25 20:09 Dose: 80 mg Documented By: CT Benzonatate (Benzonatate 100 Mg Capsule) 100 mg PO TID PRN PRN Reason: Cough Last Admin: 11/28/25 06:55 Dose: 100 mg Documented By: OLI Budesonide (Budesonide 0.5 Mg/2 Ml Neb) 0.5 mg INH RTBID [facility] Last Admin: 11/28/25 19:22 Dose: 0.5 mg Documented By: Admin: 11/28/25 07:22 Dose: 0.5 mg Documented By: PAU Carvedilol (Carvedilol 3.125 Mg Tablet) 3.125 mg PO BID [facility] Last Admin: 11/28/25 20:09 Dose: 3.125 mg Documented By: Admin: 11/28/25 08:30 Dose: 3.125 mg Documented By: AN Clopidogrel Bisulfate (Clopidogrel 75 Mg Tablet) 75 mg PO DAILY [facility] Last Admin: 11/28/25 08:30 Dose: 75 mg Documented By: AN Cyclobenzaprine HCl (Cyclobenzaprine 10 Mg Tablet) 10 mg PO TID PRN PRN Reason: Muscle Spasm Last Admin: 11/28/25 19:57 Dose: 10 mg Documented By: Admin: 11/28/25 11:30 Dose: 10 mg Documented By: AN Guaifenesin/Dextromethorphan (Guaifenesin/Dm 200 Mg/20 Mg/10 Ml Syrup) 5 ml PO Q6HR PRN PRN Reason: cough Last Admin: 11/28/25 06:55 Dose: 5 ml Documented By: OLI Hydrochlorothiazide (Hydrochlorothiazide 25 Mg Tablet) 25 mg PO DAILY [facility] Last Admin: 11/28/25 11:29 Dose: 25 mg Documented By: ESV Hydroxyzine HCl (Hydroxyzine Hcl 25 Mg Tablet) 25 mg PO TID PRN PRN Reason: Anxiety Dextrose (D10w) 100 mls @ 999 mls/hr IV PRN PRN PRN Reason: Hypoglycemia Insulin Human Lispro (Insulin Lispro 100 Unit/Ml 3ml Vial) 0 unit SUBCUT ACHS [facility]; Protocol Last Admin: 11/28/25 21:12 Dose: Not Given Documented By: CT Lorazepam (Lorazepam 0.5 Mg Tablet) 0.5 mg PO Q4H PRN PRN Reason: Anxiety Losartan Potassium (Losartan 50 Mg Tablet) 100 mg PO DAILY [facility] Last Admin: 11/28/25 11:31 Dose: 100 mg Documented By: ESV Naloxone HCl (Naloxone 0.4 Mg/Ml Vial) 0.2 mg IV Q2MIN PRN PRN Reason: Opiate Reversal Stored In Pharmacy 0 each PO PRN PRN PRN Reason: . Nf (Cilostazol 50 Mg (Tablet)) 100 mg PO BID [facility] Last Admin: 11/28/25 20:09 Dose: 100 mg Documented By: Admin: 11/28/25 11:34 Dose: 100 mg Documented By: ESV Oxycodone/Acetaminophen (Oxycodone/Acetaminophen 5/325 Tablet) 1 tab PO Q4H PRN PRN Reason: Pain, Moderate (4-6) Last Admin: 11/28/25 19:56 Dose: 1 tab Documented By: Admin: 11/28/25 15:12 Dose: 1 tab Documented By: Admin: 11/28/25 11:29 Dose: 1 tab Documented By: ESV Prednisone (Prednisone 20 Mg Tablet) 40 mg PO DAILY [facility] Last Admin: 11/28/25 08:30 Dose: 40 mg Documented By: ESV Sertraline HCl (Sertraline 50 Mg Tablet) 50 mg PO DAILY [facility] Last Admin: 11/28/25 08:29 Dose: 50 mg Documented By: ESV Sodium Chloride (Sodium Chloride 0.9% Flush) 10 ml IV BID [facility] Last Admin: 11/28/25 20:09 Dose: 10 ml Documented By: Admin: 11/28/25 08:36 Dose: 10 ml Documented By: ESV Sodium Chloride (Sodium Chloride 0.9% Flush) 10 ml IV PRN PRN PRN Reason: Flush Trazodone HCl (Trazodone 50 Mg Tablet) 50 mg PO BEDTIME [facility] Last Admin: 11/28/25 20:09 Dose: 50 mg Documented By: CT Discontinued Medications Hydrocodone Bitart/Acetaminophen (Hydrocodone/Acet 5/325 Tablet) 1 tab PO NOW ONE Stop: 11/28/25 02:13 Last Admin: 11/28/25 03:22 Dose: 1 tab Documented By: AB Albuterol (Albuterol 2.5 Mg/3 Ml Neb (Adult)) 10 mg INH NOW ONE Stop: 11/27/25 16:07 Last Admin: 11/27/25 16:50 Dose: 10 mg Documented By: AMADOU Albuterol (Albuterol 2.5 Mg/3 Ml Neb (Adult)) 20 mg INH NOW ONE Stop: 11/27/25 18:21 Last Admin: 11/27/25 18:48 Dose: 20 mg Documented By: AMADOU Albuterol (Albuterol 2.5 Mg/3 Ml Neb (Adult)) 2.5 mg INH Q4HRWA [facility] Last Admin: 11/28/25 18:15 Dose: Not Given Documented By: ESV Albuterol/Ipratropium (Albuterol/Ipratropium 3 Ml Ampul) 3 ml INH RTQ4HR PRN PRN Reason: Shortness Of Breath Aspirin (Aspirin 81 Mg Chew Tab) 324 mg PO NOW ONE Stop: 11/27/25 16:04 Last Admin: 11/27/25 16:49 Dose: Not Given Documented By: JOSEPH Benzonatate (Benzonatate 100 Mg Capsule) 100 mg PO TID PRN PRN Reason: Cough Magnesium Sulfate (Magnesium Sulfate) 2 gm in 50 mls @ 150 mls/hr IV NOW ONE Stop: 11/27/25 18:40 Last Infusion: 11/27/25 19:13 Dose: Infused Documented By: GISELE Co-signed By: VIKKI Admin: 11/27/25 18:48 Dose: 150 mls/hr Documented By: VIKKI Co-signed By: KENDAL Ipratropium [place] (Ipratropium 0.5 Mg/2.5 Ml Neb) 0.5 mg INH NOW ONE Stop: 11/27/25 16:07 Last Admin: 11/27/25 16:50 Dose: 0.5 mg Documented By: AMADOU Lorazepam (Lorazepam 0.5 Mg Tablet) 0.5 mg PO .q4 hours PRN PRN Reason: Anxiety Morphine Sulfate (Morphine 2 Mg/Ml Inj) 2 mg IV NOW ONE Stop: 11/27/25 18:48 Last Admin: 11/27/25 18:56 Dose: 2 mg Documented By: VIKKI Morphine Sulfate (Morphine 2 Mg/Ml Inj) 2 mg IV NOW ONE Stop: 11/28/25 00:07 Last Admin: 11/28/25 01:03 Dose: 2 mg Documented By: AB Non-Formulary Medication (Fluticasone Furoate-Vilanterol [Breo Ellipta]) 1 inhalation INHALATION DAILY DANIEL Prednisone (Prednisone 20 Mg Tablet) 60 mg PO NOW ONE Stop: 11/27/25 18:22 Last Admin: 11/27/25 18:42 Dose: 60 mg Documented By: VIKKI Vital Signs Vital signs: Vital Signs - 8 hr 11/27/25 21:30 11/27/25 21:30 11/27/25 21:45 Pulse Rate 116 H 112 H Respiratory Rate 24 25 H Blood Pressure 129/65 Pulse Oximetry 94 97 Oxygen Delivery Method 11/27/25 21:45 11/27/25 22:00 11/27/25 22:00 Pulse Rate 116 H Respiratory Rate 40 H Blood Pressure 123/60 137/67 Pulse Oximetry 97 Oxygen Delivery Method 11/27/25 22:15 11/27/25 22:15 11/27/25 22:30 Pulse Rate 115 H Respiratory Rate 51 H Blood Pressure 146/67 H 142/63 H Pulse Oximetry 99 Oxygen Delivery Method 11/27/25 22:30 11/27/25 22:45 11/27/25 22:45 Pulse Rate 117 H 113 H Respiratory Rate 30 H 41 H Blood Pressure 150/67 H Pulse Oximetry 98 97 Oxygen Delivery Method 11/27/25 23:00 11/27/25 23:00 11/27/25 23:16 Pulse Rate 113 H Respiratory Rate 45 H Blood Pressure 141/67 H 130/84 Pulse Oximetry 97 Oxygen Delivery Method 11/27/25 23:16 11/27/25 23:30 11/27/25 23:31 Pulse Rate 113 H 107 H Respiratory Rate 29 H 25 H Blood Pressure 121/75 Pulse Oximetry 99 97 Oxygen Delivery Method 11/27/25 23:31 11/27/25 23:46 11/27/25 23:46 Pulse Rate 107 H 114 H Respiratory Rate 33 H 49 H Blood Pressure 154/74 H Pulse Oximetry 97 99 Oxygen Delivery Method Room Air 11/28/25 00:00 11/28/25 00:00 11/28/25 00:15 Pulse Rate 107 H 106 H Respiratory Rate 37 H 42 H Blood Pressure 166/74 H Pulse Oximetry 96 97 Oxygen Delivery Method 11/28/25 00:15 11/28/25 00:30 11/28/25 00:45 Pulse Rate 105 H Respiratory Rate 26 H Blood Pressure 168/79 H 139/77 Pulse Oximetry 97 Oxygen Delivery Method 11/28/25 00:45 11/28/25 01:00 11/28/25 01:00 Pulse Rate 102 H 109 H Respiratory Rate 30 H 18 Blood Pressure 152/78 H Pulse Oximetry 97 100 Oxygen Delivery Method 11/28/25 01:16 11/28/25 01:16 11/28/25 01:35 Pulse Rate 105 H 104 H Respiratory Rate 28 H 32 H Blood Pressure 153/70 H Pulse Oximetry 99 99 Oxygen Delivery Method 11/28/25 01:37 11/28/25 01:37 11/28/25 01:45 Pulse Rate 98 H 95 H Respiratory Rate 23 51 H Blood Pressure 161/74 H Pulse Oximetry 99 98 Oxygen Delivery Method 11/28/25 01:45 11/28/25 02:00 11/28/25 02:00 Pulse Rate 89 Respiratory Rate 35 H Blood Pressure 161/72 H 161/74 H Pulse Oximetry 98 Oxygen Delivery Method 11/28/25 02:15 11/28/25 02:15 11/28/25 02:30 Pulse Rate 90 94 H Respiratory Rate 38 H 36 H Blood Pressure 153/65 H Pulse Oximetry 98 99 Oxygen Delivery Method 11/28/25 02:30 11/28/25 02:45 11/28/25 02:45 Pulse Rate 92 H Respiratory Rate 35 H Blood Pressure 157/74 H 140/61 Pulse Oximetry 98 Oxygen Delivery Method Room Air 11/28/25 03:00 11/28/25 03:00 11/28/25 03:15 Pulse Rate 95 H 89 Respiratory Rate 21 21 Blood Pressure 144/66 H Pulse Oximetry 98 97 Oxygen Delivery Method Room Air 11/28/25 03:15 Pulse Rate Respiratory Rate Blood Pressure 139/57 L Pulse Oximetry Oxygen Delivery Method <Manav Oliveira MD - Last Filed: 11/28/25 05:25> Orders Ordered: ED Orders 11/28/25 18:06 Complete Blood Count AUTO DIFF Q4H 11/28/25 22:00 Complete Blood Count AUTO DIFF Q4H Acetaminophen (Acetaminophen 325 Mg Tablet) 650 mg PO Q6H PRN PRN Reason: Fever/Mild Pain (1-3) Last Admin: 11/28/25 08:30 Dose: 650 mg Documented By: ESV Albuterol (Albuterol 2.5 Mg/3 Ml Neb (Adult)) 2.5 mg INH Q2HR PRN PRN Reason: Shortness Of Breath Albuterol/Ipratropium (Albuterol/Ipratropium 3 Ml Ampul) 3 ml INH [id number] [facility] Last Admin: 11/28/25 19:22 Dose: 3 ml Documented By: Admin: 11/28/25 13:46 Dose: 3 ml Documented By: Admin: 11/28/25 07:22 Dose: 3 ml Documented By: PAU Amlodipine Besylate (Amlodipine 5 Mg Tablet) 5 mg PO DAILY [facility] Last Admin: 11/28/25 08:29 Dose: 5 mg Documented By: CHRISTELV Atorvastatin Calcium (Atorvastatin 20 Mg Tablet) 80 mg PO BEDTIME [facility] Last Admin: 11/28/25 20:09 Dose: 80 mg Documented By: CT Benzonatate (Benzonatate 100 Mg Capsule) 100 mg PO TID PRN PRN Reason: Cough Last Admin: 11/28/25 06:55 Dose: 100 mg Documented By: OLI Budesonide (Budesonide 0.5 Mg/2 Ml Neb) 0.5 mg INH RTBID [facility] Last Admin: 11/28/25 19:22 Dose: 0.5 mg Documented By: Admin: 11/28/25 07:22 Dose: 0.5 mg Documented By: PAU Carvedilol (Carvedilol 3.125 Mg Tablet) 3.125 mg PO BID [facility] Last Admin: 11/28/25 20:09 Dose: 3.125 mg Documented By: Admin: 11/28/25 08:30 Dose: 3.125 mg Documented By: AN Clopidogrel Bisulfate (Clopidogrel 75 Mg Tablet) 75 mg PO DAILY [facility] Last Admin: 11/28/25 08:30 Dose: 75 mg Documented By: CHRISTELV Cyclobenzaprine HCl (Cyclobenzaprine 10 Mg Tablet) 10 mg PO TID PRN PRN Reason: Muscle Spasm Last Admin: 11/28/25 19:57 Dose: 10 mg Documented By: Admin: 11/28/25 11:30 Dose: 10 mg Documented By: CHRISTELV Guaifenesin/Dextromethorphan (Guaifenesin/Dm 200 Mg/20 Mg/10 Ml Syrup) 5 ml PO Q6HR PRN PRN Reason: cough Last Admin: 11/28/25 06:55 Dose: 5 ml Documented By: OLI Hydrochlorothiazide (Hydrochlorothiazide 25 Mg Tablet) 25 mg PO DAILY [facility] Last Admin: 11/28/25 11:29 Dose: 25 mg Documented By: ESV Hydroxyzine HCl (Hydroxyzine Hcl 25 Mg Tablet) 25 mg PO TID PRN PRN Reason: Anxiety Dextrose (D10w) 100 mls @ 999 mls/hr IV PRN PRN PRN Reason: Hypoglycemia Insulin Human Lispro (Insulin Lispro 100 Unit/Ml 3ml Vial) 0 unit SUBCUT ACHS [facility]; Protocol Last Admin: 11/28/25 21:12 Dose: Not Given Documented By: CT Lorazepam (Lorazepam 0.5 Mg Tablet) 0.5 mg PO Q4H PRN PRN Reason: Anxiety Losartan Potassium (Losartan 50 Mg Tablet) 100 mg PO DAILY [facility] Last Admin: 11/28/25 11:31 Dose: 100 mg Documented By: ESV Naloxone HCl (Naloxone 0.4 Mg/Ml Vial) 0.2 mg IV Q2MIN PRN PRN Reason: Opiate Reversal Stored In Pharmacy 0 each PO PRN PRN PRN Reason: . Nf (Cilostazol 50 Mg (Tablet)) 100 mg PO BID [facility] Last Admin: 11/28/25 20:09 Dose: 100 mg Documented By: Admin: 11/28/25 11:34 Dose: 100 mg Documented By: CHRISTELV Oxycodone/Acetaminophen (Oxycodone/Acetaminophen 5/325 Tablet) 1 tab PO Q4H PRN PRN Reason: Pain, Moderate (4-6) Last Admin: 11/28/25 19:56 Dose: 1 tab Documented By: Admin: 11/28/25 15:12 Dose: 1 tab Documented By: Admin: 11/28/25 11:29 Dose: 1 tab Documented By: ESV Prednisone (Prednisone 20 Mg Tablet) 40 mg PO DAILY [facility] Last Admin: 11/28/25 08:30 Dose: 40 mg Documented By: ESV Sertraline HCl (Sertraline 50 Mg Tablet) 50 mg PO DAILY [facility] Last Admin: 11/28/25 08:29 Dose: 50 mg Documented By: ESV Sodium Chloride (Sodium Chloride 0.9% Flush) 10 ml IV BID [facility] Last Admin: 11/28/25 20:09 Dose: 10 ml Documented By: Admin: 11/28/25 08:36 Dose: 10 ml Documented By: ESV Sodium Chloride (Sodium Chloride 0.9% Flush) 10 ml IV PRN PRN PRN Reason: Flush Trazodone HCl (Trazodone 50 Mg Tablet) 50 mg PO BEDTIME [facility] Last Admin: 11/28/25 20:09 Dose: 50 mg Documented By: CT Discontinued Medications Hydrocodone Bitart/Acetaminophen (Hydrocodone/Acet 5/325 Tablet) 1 tab PO NOW ONE Stop: 11/28/25 02:13 Last Admin: 11/28/25 03:22 Dose: 1 tab Documented By: AB Albuterol (Albuterol 2.5 Mg/3 Ml Neb (Adult)) 10 mg INH NOW ONE Stop: 11/27/25 16:07 Last Admin: 11/27/25 16:50 Dose: 10 mg Documented By: AMADOU Albuterol (Albuterol 2.5 Mg/3 Ml Neb (Adult)) 20 mg INH NOW ONE Stop: 11/27/25 18:21 Last Admin: 11/27/25 18:48 Dose: 20 mg Documented By: AMADOU Albuterol (Albuterol 2.5 Mg/3 Ml Neb (Adult)) 2.5 mg INH Q4HRWA [facility] Last Admin: 11/28/25 18:15 Dose: Not Given Documented By: ESV Albuterol/Ipratropium (Albuterol/Ipratropium 3 Ml Ampul) 3 ml INH RTQ4HR PRN PRN Reason: Shortness Of Breath Aspirin (Aspirin 81 Mg Chew Tab) 324 mg PO NOW ONE Stop: 11/27/25 16:04 Last Admin: 11/27/25 16:49 Dose: Not Given Documented By: BS Benzonatate (Benzonatate 100 Mg Capsule) 100 mg PO TID PRN PRN Reason: Cough Magnesium Sulfate (Magnesium Sulfate) 2 gm in 50 mls @ 150 mls/hr IV NOW ONE Stop: 11/27/25 18:40 Last Infusion: 11/27/25 19:13 Dose: Infused Documented By: RL Co-signed By: VIKKI Admin: 11/27/25 18:48 Dose: 150 mls/hr Documented By: VIKKI Co-signed By: KENDAL Ipratropium [place] (Ipratropium 0.5 Mg/2.5 Ml Neb) 0.5 mg INH NOW ONE Stop: 11/27/25 16:07 Last Admin: 11/27/25 16:50 Dose: 0.5 mg Documented By: JZF Lorazepam (Lorazepam 0.5 Mg Tablet) 0.5 mg PO .q4 hours PRN PRN Reason: Anxiety Morphine Sulfate (Morphine 2 Mg/Ml Inj) 2 mg IV NOW ONE Stop: 11/27/25 18:48 Last Admin: 11/27/25 18:56 Dose: 2 mg Documented By: VIKKI Morphine Sulfate (Morphine 2 Mg/Ml Inj) 2 mg IV NOW ONE Stop: 11/28/25 00:07 Last Admin: 11/28/25 01:03 Dose: 2 mg Documented By: AB Non-Formulary Medication (Fluticasone Furoate-Vilanterol [Breo Ellipta]) 1 inhalation INHALATION DAILY DANIEL Prednisone (Prednisone 20 Mg Tablet) 60 mg PO NOW ONE Stop: 11/27/25 18:22 Last Admin: 11/27/25 18:42 Dose: 60 mg Documented By: VIKKI Vital Signs Vital signs: Vital Signs - 8 hr 11/27/25 21:30 11/27/25 21:30 11/27/25 21:45 Pulse Rate 116 H 112 H Respiratory Rate 24 25 H Blood Pressure 129/65 Pulse Oximetry 94 97 Oxygen Delivery Method 11/27/25 21:45 11/27/25 22:00 11/27/25 22:00 Pulse Rate 116 H Respiratory Rate 40 H Blood Pressure 123/60 137/67 Pulse Oximetry 97 Oxygen Delivery Method 11/27/25 22:15 11/27/25 22:15 11/27/25 22:30 Pulse Rate 115 H Respiratory Rate 51 H Blood Pressure 146/67 H 142/63 H Pulse Oximetry 99 Oxygen Delivery Method 11/27/25 22:30 11/27/25 22:45 11/27/25 22:45 Pulse Rate 117 H 113 H Respiratory Rate 30 H 41 H Blood Pressure 150/67 H Pulse Oximetry 98 97 Oxygen Delivery Method 11/27/25 23:00 11/27/25 23:00 11/27/25 23:16 Pulse Rate 113 H Respiratory Rate 45 H Blood Pressure 141/67 H 130/84 Pulse Oximetry 97 Oxygen Delivery Method 11/27/25 23:16 11/27/25 23:30 11/27/25 23:31 Pulse Rate 113 H 107 H Respiratory Rate 29 H 25 H Blood Pressure 121/75 Pulse Oximetry 99 97 Oxygen Delivery Method 11/27/25 23:31 11/27/25 23:46 11/27/25 23:46 Pulse Rate 107 H 114 H Respiratory Rate 33 H 49 H Blood Pressure 154/74 H Pulse Oximetry 97 99 Oxygen Delivery Method Room Air 11/28/25 00:00 11/28/25 00:00 11/28/25 00:15 Pulse Rate 107 H 106 H Respiratory Rate 37 H 42 H Blood Pressure 166/74 H Pulse Oximetry 96 97 Oxygen Delivery Method 11/28/25 00:15 11/28/25 00:30 11/28/25 00:45 Pulse Rate 105 H Respiratory Rate 26 H Blood Pressure 168/79 H 139/77 Pulse Oximetry 97 Oxygen Delivery Method 11/28/25 00:45 11/28/25 01:00 11/28/25 01:00 Pulse Rate 102 H 109 H Respiratory Rate 30 H 18 Blood Pressure 152/78 H Pulse Oximetry 97 100 Oxygen Delivery Method 11/28/25 01:16 11/28/25 01:16 11/28/25 01:35 Pulse Rate 105 H 104 H Respiratory Rate 28 H 32 H Blood Pressure 153/70 H Pulse Oximetry 99 99 Oxygen Delivery Method 11/28/25 01:37 11/28/25 01:37 11/28/25 01:45 Pulse Rate 98 H 95 H Respiratory Rate 23 51 H Blood Pressure 161/74 H Pulse Oximetry 99 98 Oxygen Delivery Method 11/28/25 01:45 11/28/25 02:00 11/28/25 02:00 Pulse Rate 89 Respiratory Rate 35 H Blood Pressure 161/72 H 161/74 H Pulse Oximetry 98 Oxygen Delivery Method 11/28/25 02:15 11/28/25 02:15 11/28/25 02:30 Pulse Rate 90 94 H Respiratory Rate 38 H 36 H Blood Pressure 153/65 H Pulse Oximetry 98 99 Oxygen Delivery Method 11/28/25 02:30 11/28/25 02:45 11/28/25 02:45 Pulse Rate 92 H Respiratory Rate 35 H Blood Pressure 157/74 H 140/61 Pulse Oximetry 98 Oxygen Delivery Method Room Air 11/28/25 03:00 11/28/25 03:00 11/28/25 03:15 Pulse Rate 95 H 89 Respiratory Rate 21 21 Blood Pressure 144/66 H Pulse Oximetry 98 97 Oxygen Delivery Method Room Air 11/28/25 03:15 Pulse Rate Respiratory Rate Blood Pressure 139/57 L Pulse Oximetry Oxygen Delivery Method MDM - Chest Pain <Jolene Bashir MD - Last Filed: 11/29/25 01:44> Lab Data 11/28/25 22:00 11/28/25 05:53 Labs: Lab Results 11/27/25 11/27/25 11/27/25 Range/Units 16:08 16:18 20:53 WBC 11.2 H (4.5-11.0) X10^3/uL RBC 4.25 (4.0-5.2) X10^6/uL Hgb 11.8 L (12.0-16.0) g/dL Hct 36.5 (36-46) % MCV 86.0 (80-100) fL MCH 27.9 (26-34) PG MCHC 32.4 (30-36) % RDW 13.9 (11.6-14.8) % Plt Count 372 (150-400) X10^3/uL Neut % (Auto) 77.6 H (50-75) % Lymph % (Auto) 14.9 L (25-40) % [place] % (Auto) 7.0 (3-14) % Eos % (Auto) 0.0 L (2-4) % Baso % (Auto) 0.5 (0-2) % Neut # (Auto) 8700 H (3761-8101) /uL Lymph # (Auto) 1700 (3085-4002) /uL [place] # (Auto) 800 (0-900) /uL Eos # (Auto) 0 (0-450) /uL Baso # (Auto) 100 (0-100) /uL PT 10.2 (9.4-12.5) SECONDS INR 0.9 (0.9-1.3) APTT 25 L (25.1-36.5) SECONDS VBG pH (7.33-7.43) VBG pCO2 (45-50) mmHg VBG pO2 (35-45) mmHg VBG HCO3 (24-28) mmol/L VBG Total CO2 (24-29) mmol/L VBG O2 Saturation (70-75) % VBG Base Excess (0-4) mmol/L FiO2 % % Sodium 138 (137-145) mmol/L Potassium 3.9 (3.4-5.1) mmol/L Chloride 101 (98-107) mmol/L Carbon Dioxide 28 (22-32) mmol/L BUN 20 H (7-17) mg/dL Creatinine 0.62 (0.52-1.04) mg/dL Estimated GFR > 60 (>60) mL/min BUN/Creatinine Ratio 32.3 H (6-22) Glucose 129 H (70-99) mg/dL POC Whole Bld Glucose 165 H (70-99) mg/dL Calcium 8.9 (8.4-10.2) mg/dL Magnesium 2.1 (1.6-2.3) mg/dL Total Bilirubin 0.4 (0.2-1.3) mg/dL AST 30 (14-36) IU/L ALT 58 H (<35) IU/L Alkaline Phosphatase 90 (38-126) U/L Total Creatine Kinase 30 (30-135) U/L Troponin I < 0.012 (0.01-0.034) ng/mL NT-Pro-B Natriuret Pep 91 (<125) pg/mL Total Protein 7.2 (6.3-8.2) g/dL Albumin 4.5 (3.5-5.0) g/dL Globulin 2.7 (1.7-4.1) g/dL Albumin/Globulin Ratio 1.7 (1.0-2.8) Lipase 37 (23-300) U/L Chlamy pneumoniae PCR Not detected (Not Detect) Adenovirus (PCR) Not detected (Not Detect) B. pertussis DNA (PCR) Not detected (Not Detect) B.parapertussis DNA PCR Not detected (Not Detecte) Coronavirus OC43 (PCR) Not detected (Not Detect) Coronavirus HKU1 (PCR) Not detected (Not Detect) Coronavirus 229E (PCR) Not detected (Not Detect) SARS-CoV-2 (PCR) Not detected (Not Detecte) Coronavirus NL63 (PCR) Not detected (Not Detect) Human Metapneumovir PCR Not detected (Not Detect) Influenza Type A (PCR) Not detected (Not Detect) Influenza Type B (PCR) Not detected (Not Detect) M. pneumoniae (PCR) Not detected (Not Detect) Parainfluenza 1 (PCR) Not detected (Not Detect) Parainfluenza 2 (PCR) Not detected (Not Detect) Parainfluenza 3 (PCR) Not detected (Not Detect) Parainfluenza 4 (PCR) Not detected (Not Detect) RSV (PCR) Not detected (Not Detect) Entero/Rhino (PCR) Not detected (Not Detect) 11/27/25 11/27/25 Range/Units 22:05 23:12 WBC (4.5-11.0) X10^3/uL RBC (4.0-5.2) X10^6/uL Hgb (12.0-16.0) g/dL Hct (36-46) % MCV (80-100) fL MCH (26-34) PG MCHC (30-36) % RDW (11.6-14.8) % Plt Count (150-400) X10^3/uL Neut % (Auto) (50-75) % Lymph % (Auto) (25-40) % [place] % (Auto) (3-14) % Eos % (Auto) (2-4) % Baso % (Auto) (0-2) % Neut # (Auto) (2889-9238) /uL Lymph # (Auto) (8400-0081) /uL [place] # (Auto) (0-900) /uL Eos # (Auto) (0-450) /uL Baso # (Auto) (0-100) /uL PT (9.4-12.5) SECONDS INR (0.9-1.3) APTT (25.1-36.5) SECONDS VBG pH 7.40 (7.33-7.43) VBG pCO2 41.8 L (45-50) mmHg VBG pO2 48 H (35-45) mmHg VBG HCO3 26 (24-28) mmol/L VBG Total CO2 25 (24-29) mmol/L VBG O2 Saturation 83 H (70-75) % VBG Base Excess 0.7 (0-4) mmol/L FiO2 % 21.0 % % Sodium (137-145) mmol/L Potassium (3.4-5.1) mmol/L Chloride (98-107) mmol/L Carbon Dioxide (22-32) mmol/L BUN (7-17) mg/dL Creatinine (0.52-1.04) mg/dL Estimated GFR (>60) mL/min BUN/Creatinine Ratio (6-22) Glucose (70-99) mg/dL POC Whole Bld Glucose (70-99) mg/dL Calcium (8.4-10.2) mg/dL Magnesium (1.6-2.3) mg/dL Total Bilirubin (0.2-1.3) mg/dL AST (14-36) IU/L ALT (<35) IU/L Alkaline Phosphatase (38-126) U/L Total Creatine Kinase (30-135) U/L Troponin I (0.01-0.034) ng/mL NT-Pro-B Natriuret Pep (<125) pg/mL Total Protein (6.3-8.2) g/dL Albumin (3.5-5.0) g/dL Globulin (1.7-4.1) g/dL Albumin/Globulin Ratio (1.0-2.8) Lipase (23-300) U/L Chlamy pneumoniae PCR Not detected (Not Detect) Adenovirus (PCR) Not detected (Not Detect) B. pertussis DNA (PCR) Not detected (Not Detect) B.parapertussis DNA PCR Not detected (Not Detecte) Coronavirus OC43 (PCR) Not detected (Not Detect) Coronavirus HKU1 (PCR) Not detected (Not Detect) Coronavirus 229E (PCR) Not detected (Not Detect) SARS-CoV-2 (PCR) Not detected (Not Detecte) Coronavirus NL63 (PCR) Not detected (Not Detect) Human Metapneumovir PCR Not detected (Not Detect) Influenza Type A (PCR) Not detected (Not Detect) Influenza Type B (PCR) Not detected (Not Detect) M. pneumoniae (PCR) Not detected (Not Detect) Parainfluenza 1 (PCR) Not detected (Not Detect) Parainfluenza 2 (PCR) Not detected (Not Detect) Parainfluenza 3 (PCR) Not detected (Not Detect) Parainfluenza 4 (PCR) Not detected (Not Detect) RSV (PCR) Not detected (Not Detect) Entero/Rhino (PCR) Not detected (Not Detect) Point of Care Testing Glucose POC 165 Imaging Data Chest x-ray: Radiologist's Impression: PROCEDURE: XR CHEST 2V INDICATIONS: sob TECHNIQUE: 2 views of the chest were acquired. COMPARISON: [facility], CR, XR CHEST 1V, 11/06/2025, 12:03. [facility], CR, XR CHEST 1V, 11/17/2025, 17:14. FINDINGS: Surgical changes and devices: None. Lungs and pleura: Lungs are clear. Stable contour of the left hemidiaphragm. No pleural effusions or pneumothorax. Mediastinum: Mediastinal contours are normal. Heart size is normal. Bones and chest wall: No suspicious bony abnormalities. Soft tissues appear unremarkable. IMPRESSION: No acute cardiopulmonary abnormality is seen. CTA chest PE protocol: Radiologist's Impression: PROCEDURE: CT ANGIO CHEST PE PROTOCOL INDICATIONS: Shortness of breath TECHNIQUE: After the administration of intravenous contrast, 2 mm thick sections acquired from the pulmonary apices to the posterior costophrenic angles. 3-dimensional maximum intensity projection (MIP) coronal and sagittal reformats were then acquired through the thorax. For radiation dose reduction, the following was used: automated exposure control, adjustment of mA and/or kV according to patient size. COMPARISON: [facility], CR, XR CHEST 2V, 11/27/2025, 16:14. [facility], CT, CT ANGIO CHEST PE PROTOCOL, 10/31/2025, 13:54. FINDINGS: Image quality: Diagnostic. Pulmonary arteries: Pulmonary arteries are normal in size, and demonstrate no intraluminal filling defects to suggest central pulmonary embolism. Lower Neck: No enlarged lymph nodes. Thyroid: No thyroid nodules which require sonographic follow up, per consensus guidelines. Axillae: No enlarged lymph nodes. Chest Wall: Unremarkable. Bones: Unremarkable. Lungs and Pleura: No pneumothorax or pleural effusions. No consolidation or suspicious nodules. Heart: Heart size is normal. No pericardial effusion. Thoracic Vessels: No aortic aneurysm. Mediastinum and Amy: No enlarged lymph nodes. Esophagus: No wall thickening. Minimal hiatal hernia. Upper Abdomen: Visualized upper abdomen solid organs and bowel loops appear normal. IMPRESSION: No pulmonary embolus. No acute cardiopulmonary process. Dictated by: Enid Cm M.D. on 11/28/2025 at 1:55 Approved by: Enid Cm M.D. on 11/28/2025 at 1:57 MDM Narrative Medical decision making narrative: Patient is a 65-year-old female with a history of poorly controlled and frequent COPD exacerbations finishing steroids from previous recent exacerbation presents with increasing shortness of breath. Patient states that she was hospitalized and discharged without improvement of her symptoms and subsequent reexacerbation. -- EMR Review: Briefly reviewed EMR, multiple ER visits for COPD exacerbation -- Differential diagnosis: ACS, PE, acute COPD exacerbation, flash pulmonary edema, pulmonary hypertension, viral vs bacterial URI, pneumonia, other. -- Labs: CBC with leukocytosis (WBC 11.5) no left shift, mild anemia (Hbg 10.7), normal platelets. Normal coags. CMP with elevated BUN at 20, calcium and Mag normal, ALT 58 (elevated). Troponin undetectable. BNP normal. VBG: No acidosis or hypercapnea. Respiratory panel neg. -- Imaging: Chest x-ray was not consistent with infectious process, no pneumothorax, no pulmonary effusion, no consolidation on my read. CTA pending. -- EK:04 normal sinus rhythm, HR 92, DE 124, QT 348, QTC 430, no left axis deviation, no evidence of ischemia. This was compared to EKG obtained on 11/06/2025 which appears largely unchanged. I looked at the EKG on 11/17 which revealed some PVCs and fusion complexes. -- Consults: None. ED course: 1649 patient arrives to the ED short of breath with chest pain, wheezing and in respiratory distress. She received DuoNeb treatment from RT. 1839 Patient re-evaluated by myself. Does not appear improved. Will continue albuterol, magnesium infusion. 1955 Patient states she is in pain. Mostly pleuritic. Morphine ordered. 1999 Respiratory status not improving. Considered BIPAP, VBG ordered. Not in respiratory acidosis. Will obtain CTA. 0000 There was a miscommunication with CTA, which was ordered hours ago and not completed. [address] Oliveira pending CTA, re-evaluation, and possible admission. 65-year-old female with history of COPD, recent course of oral prednisone for exacerbation, increasing shortness of breath with some chest discomfort last 2 days. Given IV steroid, serial nebulized bronchodilator treatments, normal oxygenation, still feels some shortness of breath, has tachycardia, CT angiogram chest ordered. Assumed care. EKG shows normal sinus rhythm with rate of 92, no obvious ischemic changes. Chest x-ray no acute changes, see radiology report. Lab data: POC glucose 165. White blood cell count 45741, hemoglobin 11.8, platelets adequate. Glucose 129. Normal renal function, serum CO2, electrolytes. Slight AST elevation, other liver functions normal. Lipase normal. Troponin negative/unmeasurable. VBG with normal pH, no CO2 retention. Initial COVID influenza RSV swab negative. Subsequent full respiratory panel also negative. CTA chest, showed no pulmonary embolus, no acute changes. See radiology report. Patient requesting pain medication, oral hydrocodone/APAP for analgesia and antitussive effect. Patient moved [facility] to [facility], felt quite short of breath with minimal activity. No hypoxia but quite symptomatic with minimal exertion, consider admission, patient prefers admission. We will consult hospitalist. 0320, case discussed with hospitalist Dr. Franklin who accepts patient for admission <Manav Oliveira MD - Last Filed: 11/28/25 05:25> Lab Data Attestation: I reviewed the patient's lab results. Lab results narrative: POC glucose 165. White blood cell count 62690, hemoglobin 11.8, platelets adequate. Glucose 129. Normal renal function, serum CO2, electrolytes. Slight AST elevation, other liver functions normal. Lipase normal. Troponin negative/unmeasurable. VBG with normal pH, no CO2 retention. Initial COVID influenza RSV swab negative. Subsequent full respiratory panel also negative. Labs: Lab Results 11/27/25 11/27/25 11/27/25 Range/Units 16:08 16:18 20:53 WBC 11.2 H (4.5-11.0) X10^3/uL RBC 4.25 (4.0-5.2) X10^6/uL Hgb 11.8 L (12.0-16.0) g/dL Hct 36.5 (36-46) % MCV 86.0 (80-100) fL MCH 27.9 (26-34) PG MCHC 32.4 (30-36) % RDW 13.9 (11.6-14.8) % Plt Count 372 (150-400) X10^3/uL Neut % (Auto) 77.6 H (50-75) % Lymph % (Auto) 14.9 L (25-40) % [place] % (Auto) 7.0 (3-14) % Eos % (Auto) 0.0 L (2-4) % Baso % (Auto) 0.5 (0-2) % Neut # (Auto) 8700 H (3137-1459) /uL Lymph # (Auto) 1700 (7626-5024) /uL [place] # (Auto) 800 (0-900) /uL Eos # (Auto) 0 (0-450) /uL Baso # (Auto) 100 (0-100) /uL PT 10.2 (9.4-12.5) SECONDS INR 0.9 (0.9-1.3) APTT 25 L (25.1-36.5) SECONDS VBG pH (7.33-7.43) VBG pCO2 (45-50) mmHg VBG pO2 (35-45) mmHg VBG HCO3 (24-28) mmol/L VBG Total CO2 (24-29) mmol/L VBG O2 Saturation (70-75) % VBG Base Excess (0-4) mmol/L FiO2 % % Sodium 138 (137-145) mmol/L Potassium 3.9 (3.4-5.1) mmol/L Chloride 101 (98-107) mmol/L Carbon Dioxide 28 (22-32) mmol/L BUN 20 H (7-17) mg/dL Creatinine 0.62 (0.52-1.04) mg/dL Estimated GFR > 60 (>60) mL/min BUN/Creatinine Ratio 32.3 H (6-22) Glucose 129 H (70-99) mg/dL POC Whole Bld Glucose 165 H (70-99) mg/dL Calcium 8.9 (8.4-10.2) mg/dL Magnesium 2.1 (1.6-2.3) mg/dL Total Bilirubin 0.4 (0.2-1.3) mg/dL AST 30 (14-36) IU/L ALT 58 H (<35) IU/L Alkaline Phosphatase 90 (38-126) U/L Total Creatine Kinase 30 (30-135) U/L Troponin I < 0.012 (0.01-0.034) ng/mL NT-Pro-B Natriuret Pep 91 (<125) pg/mL Total Protein 7.2 (6.3-8.2) g/dL Albumin 4.5 (3.5-5.0) g/dL Globulin 2.7 (1.7-4.1) g/dL Albumin/Globulin Ratio 1.7 (1.0-2.8) Lipase 37 (23-300) U/L Chlamy pneumoniae PCR Not detected (Not Detect) Adenovirus (PCR) Not detected (Not Detect) B. pertussis DNA (PCR) Not detected (Not Detect) B.parapertussis DNA PCR Not detected (Not Detecte) Coronavirus OC43 (PCR) Not detected (Not Detect) Coronavirus HKU1 (PCR) Not detected (Not Detect) Coronavirus 229E (PCR) Not detected (Not Detect) SARS-CoV-2 (PCR) Not detected (Not Detecte) Coronavirus NL63 (PCR) Not detected (Not Detect) Human Metapneumovir PCR Not detected (Not Detect) Influenza Type A (PCR) Not detected (Not Detect) Influenza Type B (PCR) Not detected (Not Detect) M. pneumoniae (PCR) Not detected (Not Detect) Parainfluenza 1 (PCR) Not detected (Not Detect) Parainfluenza 2 (PCR) Not detected (Not Detect) Parainfluenza 3 (PCR) Not detected (Not Detect) Parainfluenza 4 (PCR) Not detected (Not Detect) RSV (PCR) Not detected (Not Detect) Entero/Rhino (PCR) Not detected (Not Detect) 11/27/25 11/27/25 Range/Units 22:05 23:12 WBC (4.5-11.0) X10^3/uL RBC (4.0-5.2) X10^6/uL Hgb (12.0-16.0) g/dL Hct (36-46) % MCV (80-100) fL MCH (26-34) PG MCHC (30-36) % RDW (11.6-14.8) % Plt Count (150-400) X10^3/uL Neut % (Auto) (50-75) % Lymph % (Auto) (25-40) % [place] % (Auto) (3-14) % Eos % (Auto) (2-4) % Baso % (Auto) (0-2) % Neut # (Auto) (5552-7647) /uL Lymph # (Auto) (2161-8688) /uL [place] # (Auto) (0-900) /uL Eos # (Auto) (0-450) /uL Baso # (Auto) (0-100) /uL PT (9.4-12.5) SECONDS INR (0.9-1.3) APTT (25.1-36.5) SECONDS VBG pH 7.40 (7.33-7.43) VBG pCO2 41.8 L (45-50) mmHg VBG pO2 48 H (35-45) mmHg VBG HCO3 26 (24-28) mmol/L VBG Total CO2 25 (24-29) mmol/L VBG O2 Saturation 83 H (70-75) % VBG Base Excess 0.7 (0-4) mmol/L FiO2 % 21.0 % % Sodium (137-145) mmol/L Potassium (3.4-5.1) mmol/L Chloride (98-107) mmol/L Carbon Dioxide (22-32) mmol/L BUN (7-17) mg/dL Creatinine (0.52-1.04) mg/dL Estimated GFR (>60) mL/min BUN/Creatinine Ratio (6-22) Glucose (70-99) mg/dL POC Whole Bld Glucose (70-99) mg/dL Calcium (8.4-10.2) mg/dL Magnesium (1.6-2.3) mg/dL Total Bilirubin (0.2-1.3) mg/dL AST (14-36) IU/L ALT (<35) IU/L Alkaline Phosphatase (38-126) U/L Total Creatine Kinase (30-135) U/L Troponin I (0.01-0.034) ng/mL NT-Pro-B Natriuret Pep (<125) pg/mL Total Protein (6.3-8.2) g/dL Albumin (3.5-5.0) g/dL Globulin (1.7-4.1) g/dL Albumin/Globulin Ratio (1.0-2.8) Lipase (23-300) U/L Chlamy pneumoniae PCR Not detected (Not Detect) Adenovirus (PCR) Not detected (Not Detect) B. pertussis DNA (PCR) Not detected (Not Detect) B.parapertussis DNA PCR Not detected (Not Detecte) Coronavirus OC43 (PCR) Not detected (Not Detect) Coronavirus HKU1 (PCR) Not detected (Not Detect) Coronavirus 229E (PCR) Not detected (Not Detect) SARS-CoV-2 (PCR) Not detected (Not Detecte) Coronavirus NL63 (PCR) Not detected (Not Detect) Human Metapneumovir PCR Not detected (Not Detect) Influenza Type A (PCR) Not detected (Not Detect) Influenza Type B (PCR) Not detected (Not Detect) M. pneumoniae (PCR) Not detected (Not Detect) Parainfluenza 1 (PCR) Not detected (Not Detect) Parainfluenza 2 (PCR) Not detected (Not Detect) Parainfluenza 3 (PCR) Not detected (Not Detect) Parainfluenza 4 (PCR) Not detected (Not Detect) RSV (PCR) Not detected (Not Detect) Entero/Rhino (PCR) Not detected (Not Detect) Point of Care Testing Glucose POC 165 Imaging Data Chest x-ray: Radiologist's Impression: [address] [address] XRay Report Signed Patient: Cira Stafford MR#: [id number] : 1960 Acct:[id number] Age/Sex: 65 / F Date of Service: 11/27/25 Loc: ED Accession Number: [id number] Procedure: XR chest 2V Ordering Provider: Jolene Bashir MD PROCEDURE: XR CHEST 2V INDICATIONS: sob TECHNIQUE: 2 views of the chest were acquired. COMPARISON: [facility], , XR CHEST 1V, 11/06/2025, 12:03. [facility], CR, XR CHEST 1V, 11/17/2025, 17:14. FINDINGS: Surgical changes and devices: None. Lungs and pleura: Lungs are clear. Stable contour of the left hemidiaphragm. No pleural effusions or pneumothorax. Mediastinum: Mediastinal contours are normal. Heart size is normal. Bones and chest wall: No suspicious bony abnormalities. Soft tissues appear unremarkable. IMPRESSION: No acute cardiopulmonary abnormality is seen. Approved by: Robert Daugherty M.D. on 11/27/2025 at 16:45 CTA chest PE protocol: Radiologist's Impression: [address] [address] [address] Scan Report Signed Patient: Cira Stafford MR#: [id number] : 1960 Acct:[id number] Age/Sex: 65 / F Date of Service: 11/28/25 Loc: ED Accession Number: [id number] Procedure: CT angio chest PE protocol Ordering Provider: Jolene Bashir MD PROCEDURE: CT ANGIO CHEST PE PROTOCOL INDICATIONS: Shortness of breath TECHNIQUE: After the administration of intravenous contrast, 2 mm thick sections acquired from the pulmonary apices to the posterior costophrenic angles. 3-dimensional maximum intensity projection (MIP) coronal and sagittal reformats were then acquired through the thorax. For radiation dose reduction, the following was used: automated exposure control, adjustment of mA and/or kV according to patient size. COMPARISON: [facility], CR, XR CHEST 2V, 11/27/2025, 16:14. [facility], CT, CT ANGIO CHEST PE PROTOCOL, 10/31/2025, 13:54. FINDINGS: Image quality: Diagnostic. Pulmonary arteries: Pulmonary arteries are normal in size, and demonstrate no intraluminal filling defects to suggest central pulmonary embolism. Lower Neck: No enlarged lymph nodes. Thyroid: No thyroid nodules which require sonographic follow up, per consensus guidelines. Axillae: No enlarged lymph nodes. Chest Wall: Unremarkable. Bones: Unremarkable. Lungs and Pleura: No pneumothorax or pleural effusions. No consolidation or suspicious nodules. Heart: Heart size is normal. No pericardial effusion. Thoracic Vessels: No aortic aneurysm. Mediastinum and Amy: No enlarged lymph nodes. Esophagus: No wall thickening. Minimal hiatal hernia. Upper Abdomen: Visualized upper abdomen solid organs and bowel loops appear normal. IMPRESSION: No pulmonary embolus. No acute cardiopulmonary process. Dictated by: Enid Cm M.D. on 11/28/2025 at 1:55 Approved by: Enid Cm M.D. on 11/28/2025 at 1:57 ECG Data Attestation: I personally reviewed and interpreted this ECG as follows: Interpretation: 1604, normal sinus rhythm with rate of 92, no obvious ST segment elevation or depression changes. Some baseline artifact wandering noted. DE 124, QRS 78, QTC 430. MDM Narrative Medical decision making narrative: 65-year-old female with history of COPD, recent course of oral prednisone for exacerbation, increasing shortness of breath with some chest discomfort last 2 days. Given IV steroid, serial nebulized bronchodilator treatments, normal oxygenation, still feels some shortness of breath, has tachycardia, CT angiogram chest ordered. Assumed care. EKG shows normal sinus rhythm with rate of 92, no obvious ischemic changes. Chest x-ray no acute changes, see radiology report. Lab data: POC glucose 165. White blood cell count 71012, hemoglobin 11.8, platelets adequate. Glucose 129. Normal renal function, serum CO2, electrolytes. Slight AST elevation, other liver functions normal. Lipase normal. Troponin negative/unmeasurable. VBG with normal pH, no CO2 retention. Initial COVID influenza RSV swab negative. Subsequent full respiratory panel also negative. CTA chest, showed no pulmonary embolus, no acute changes. See radiology report. Patient requesting pain medication, oral hydrocodone/APAP for analgesia and antitussive effect. Patient moved [facility] to [facility], felt quite short of breath with minimal activity. No hypoxia but quite symptomatic with minimal exertion, consider admission, patient prefers admission. We will consult hospitalist. 0320, case discussed with hospitalist Dr. Franklin who accepts patient for admission Critical Care Time <Manav Oliveira MD - Last Filed: 11/28/25 05:25> Critical Care Time Critical Care Time: Yes Total Critical Care Time: 35 Attestation: The high probability of a clinically significant, sudden or life threatening deterioration of the [cardiopulmonary] system(s) required my full and direct attention, intervention and personal management. The aggregate critical care time was [35] minutes. This time is in addition to time spent performing reported procedures but includes the following: [x] Data Review and interpretation [x] Patient assessment and monitoring of vital signs [x] Documentation [x] Medication orders and management Discharge Plan Departure Patient Disposition: Admitted as Observation Clinical Impression: Asthma exacerbation in COPD, Dyspnea Admit Date/Time: 11/28/25 03:30 Admit Provider: Balwinder Franklin
[2025-11-27 16:17] LABS: Add Manual Diff / Slide Review NO; Hematocrit 36.5 % (36-46); Hemoglobin 11.8 g/dL (12.0-16.0); Lymphocytes Absolute Auto 1700 /uL (1100-4500); Mean Corpuscular HGB Conc 32.4 % (30-36); Mean Corpuscular Hemoglobin 27.9 PG (26-34); Mean Corpuscular Volume 86.0 fL (80-100); Platelet Count 372 X10^3/uL (150-400)
[2025-11-27 16:26] LABS: INR 0.9 (0.9-1.3); Prothrombin Time 10.2 SECONDS (9.4-12.5)
[2025-11-27 16:28] LABS: PTT Partial Thromboplastin Tim 25 SECONDS (25.1-36.5)
[2025-11-27 16:30] LABS: Alanine Aminotransferase 58 IU/L (<35); Albumin 4.5 g/dL (3.5-5.0); Albumin Globulin Ratio 1.7 (1.0-2.8); Alkaline Phosphatase 90 U/L (38-126); Blood Urea Nitrogen 20 mg/dL (7-17); Calcium 8.9 mg/dL (8.4-10.2); Carbon Dioxide 28 mmol/L (22-32); Chloride 101 mmol/L (98-107); Creatine Kinase 30 U/L (30-135); Estimated Glomerular Filt Rate > 60 mL/min (>60); Globulin 2.7 g/dL (1.7-4.1); Glucose 129 mg/dL (70-99); HEMOLYSIS < 15 (0-50); Lipase 37 U/L (23-300); Magnesium 2.1 mg/dL (1.6-2.3); Potassium 3.9 mmol/L (3.4-5.1); Sodium 138 mmol/L (137-145); Total Protein 7.2 g/dL (6.3-8.2)
[2025-11-27 16:42] LABS: NT-proBNP (BNP-Adult 18+) 91 pg/mL (<125); Troponin I < 0.012 ng/mL (0.01-0.034)
[2025-11-27] MEDS: IPRATROPIUM 0.5 MG/2.5 ML NEB INH (16:50)
[2025-11-27] MEDS: ALBUTEROL 2.5 MG/3 ML NEB (ADULT) 10 MG INH (16:50)
[2025-11-27 17:15] LABS: Coronavirus NL 63 Not Detected (Not Detect); SARS- CoV-2 Not Detected (Not Detecte)
[2025-11-27] MEDS: MAGNESIUM SULFATE 2 GM/50 ML PIGGYBACK IV (18:48)
[2025-11-27] MEDS: ALBUTEROL 2.5 MG/3 ML NEB (ADULT) 20 MG INH (18:48)
[2025-11-27] MEDS: MORPHINE 2 MG/ML INJ IV (18:56)
[2025-11-27 22:10] LABS: Base Excess VBG 0.7 mmol/L (0-4); HCO3 VBG 26 mmol/L (24-28); Oxygen Saturation VBG 83 % (70-75); PCO2 VBG 41.8 mmHg (45-50); PO2 VBG 48 mmHg (35-45); Total CO2 VBG 25 mmol/L (24-29); pH VBG 7.40 (7.33-7.43)
[2025-11-28] VITALS (35 sets, daily range): BP systolic 121–187; BP diastolic 57–82; PULSE 78–129; RESP 18–51; TEMP 36.4–36.9; O2SAT 96–100; BMI 37.5
[2025-11-28 00:06] LABS: Coronavirus NL 63 Not Detected (Not Detect); SARS- CoV-2 Not Detected (Not Detecte)
[2025-11-28] MEDS: MORPHINE 2 MG/ML INJ IV (01:03)
--- NOTE | 2025-11-28 01:13 | DI.CT.S_ITS ---
PROCEDURE: CT ANGIO CHEST PE PROTOCOL INDICATIONS: Shortness of breath TECHNIQUE: After the administration of intravenous contrast, 2 mm thick sections acquired from the pulmonary apices to the posterior costophrenic angles. 3-dimensional maximum intensity projection (MIP) coronal and sagittal reformats were then acquired through the thorax. For radiation dose reduction, the following was used: automated exposure control, adjustment of mA and/or kV according to patient size. COMPARISON: [facility], CR, XR CHEST 2V, 11/27/2025, 16:14. [facility], CT, CT ANGIO CHEST PE PROTOCOL, 10/31/2025, 13:54. FINDINGS: Image quality: Diagnostic. Pulmonary arteries: Pulmonary arteries are normal in size, and demonstrate no intraluminal filling defects to suggest central pulmonary embolism. Lower Neck: No enlarged lymph nodes. Thyroid: No thyroid nodules which require sonographic follow up, per consensus guidelines. Axillae: No enlarged lymph nodes. Chest Wall: Unremarkable. Bones: Unremarkable. Lungs and Pleura: No pneumothorax or pleural effusions. No consolidation or suspicious nodules. Heart: Heart size is normal. No pericardial effusion. Thoracic Vessels: No aortic aneurysm. Mediastinum and Amy: No enlarged lymph nodes. Esophagus: No wall thickening. Minimal hiatal hernia. Upper Abdomen: Visualized upper abdomen solid organs and bowel loops appear normal. IMPRESSION: No pulmonary embolus. No acute cardiopulmonary process. Dictated by: Enid Cm M.D. on 11/28/2025 at 1:55 Approved by: Enid Cm M.D. on 11/28/2025 at 1:57
--- NOTE | 2025-11-28 05:34 | PM.HP.1 ---
History of Present Illness History of Present Illness Date Patient Seen: 11/28/25 Time Patient Seen: 05:35 Chief complaint: returning, HBP, body aches, cough Narrative: kennedi 1 Dosher 3 FM 1 WW 1 I 2 Sum 2 65-year-old female with past medical history of COPD not oxygen dependent, hypertension, hyperlipidemia, [id number] diabetes, depression and anxiety presents with shortness of breath. Of note, the patient was recently seen for COPD exacerbation and was given prednisone and inhalers. However despite taking the prednisone as outpatient the patient continued to have shortness of breath and wheezing. The patient also have left-sided chest discomfort the last 2 days. Otherwise the patient denies any fever, chills, nausea, vomiting, diarrhea or syncope. In the emergency room, the patient was hemodynamically stable and was saturating above 92% on room air. CT angio of the chest shows no PE. EKG shows no sign of acute ischemia and troponin was negative. WBC was 11 and other labs were relatively benign. Viral respiratory panel was negative. Due to ongoing shortness of breath and respiratory distress ER physician request admission for IV Solu-Medrol, DuoNebs. Of note the patient also report of a recent fall and had some pain requiring hydrocodone which was given in the ER. [facility] Medical History DM2 (diabetes mellitus, type 2) Chronic narcotic dependence Insomnia CHF (congestive heart failure) Chronic pain History of CVA (cerebrovascular accident) Myocardial infarction Hepatic steatosis Drug-seeking behavior Seizures Peptic ulcer disease PTSD (post-traumatic stress disorder) Depression Easy bruisability Osteoarthritis GERD (gastroesophageal reflux disease) HLD (hyperlipidemia) HTN (hypertension) Asthma Hearing loss Prediabetes Other chronic pain Tinea pedis Pain in right hip Anxiety Coronary artery disease COPD (chronic obstructive pulmonary disease) Stroke (1999) Surgical History Hx of colonoscopy Hx of tonsillectomy History of surgery on wrist History of bilateral knee replacement Social History household members: none Smoking Status: Former smoker alcohol intake: former Meds Home Medications and Allergies Home Medications ?Medication ?Instructions ?Recorded ?Confirmed ?Type albuterol sulfate 90 mcg/actuation 2 puff inhalation Q4H PRN Wheezing 11/26/24 11/27/25 History aerosol inhaler benzonatate 100 mg capsule 100 mg PO TID PRN Cough #60 caps 08/22/25 11/27/25 Rx atorvastatin 40 mg tablet 80 mg (2 x 40 mg) PO BEDTIME #90 08/30/25 11/27/25 Rx tabs carvedilol 3.125 mg tablet 3.125 mg PO BID #180 tabs 08/30/25 11/27/25 Rx clopidogrel 75 mg tablet 75 mg PO DAILY #90 tabs 08/30/25 11/27/25 Rx cyclobenzaprine 10 mg tablet 10 mg PO TID PRN muscle spasm #90 08/30/25 11/27/25 Rx tabs hydrochlorothiazide 25 mg tablet 25 mg PO DAILY #90 tabs 08/30/25 11/27/25 Rx hydroxyzine HCl 25 mg tablet 25 mg PO TID PRN Anxiety #60 tabs 08/30/25 11/27/25 Rx ipratropium bromide 21 mcg (0.03 2 spray intranasal BID #30 mL 08/30/25 11/27/25 Rx %) nasal spray lidocaine 5 % topical patch 1 patch topical DAILY PRN Pain #30 08/30/25 11/27/25 Rx ea losartan 100 mg tablet 100 mg PO QAM #90 tabs 08/30/25 11/27/25 Rx metformin 500 mg tablet,extended 500 mg PO DAILY #90 tabs 08/30/25 11/27/25 Rx release 24 hr sertraline 50 mg tablet 50 mg PO QAM #90 tabs 08/30/25 11/27/25 Rx trazodone 50 mg tablet 50 mg PO ONCE PM #90 tabs 08/30/25 11/27/25 Rx fluticasone furoate 200 1 inh inhalation DAILY #60 ea 09/25/25 11/27/25 Rx mcg-vilanterol 25 mcg/dose inhalation powder (Breo Ellipta) blood sugar diagnostic (True #100 ea 10/02/25 11/27/25 Rx Metrix Glucose Test Strip) glucose test strips #400 ea 10/02/25 11/27/25 Rx naloxone 4 mg/actuation nasal 4 mg intranasal Q2M PRN opioid 10/31/25 11/27/25 Rx spray (Narcan) overdose #2 ea oxycodone-acetaminophen 5 mg-325 1 tab PO Q4-6H PRN pain #16 tabs 10/31/25 11/27/25 Rx mg tablet (Percocet) amlodipine 5 mg tablet 5 mg PO DAILY #90 tabs 11/02/25 11/27/25 Rx cilostazol 50 mg tablet 100 mg (2 x 50 mg) PO BID #60 tabs 11/02/25 11/27/25 Rx lorazepam 0.5 mg tablet 0.5 mg PO .q4 hours PRN anxiety 11/21/25 11/27/25 Rx #15 tabs oxycodone-acetaminophen 5 mg-325 1 tab PO Q4H PRN pain #15 tabs 11/21/25 11/27/25 Rx mg tablet (Percocet) prednisone 20 mg tablet See Rx Instructions .Route 11/21/25 11/27/25 Rx .COMPLEX #30 tabs Allergies Allergy/AdvReac Type Severity Reaction Status Date / Time aspirin (ASPIRIN) Allergy Severe Throat Verified 11/27/25 15:48 closes, eye itching, difficulty breathing buprenorphine (From Suboxone) Allergy Severe Throat Verified 11/27/25 15:48 closing, vomiting ibuprofen (IBUPROFEN) Allergy Severe Throat Verified 11/27/25 15:48 closes, eye itching, difficulty breathing ketorolac (From TORADOL) Allergy Severe Throat Verified 11/27/25 15:48 closes, eye itching, difficulty breathing methadone Allergy Severe Hard time Verified 11/27/25 15:48 breathing, my vital signs were dropping naloxone (From Suboxone) Allergy Severe Throat Verified 11/27/25 15:48 closing, vomiting NSAIDS (Non-Steroidal Allergy Severe Throat Verified 11/17/25 17:05 Anti-Inflamma closes, eye itching, difficulty breathing tramadol (TRAMADOL) Allergy Severe Rash, my Verified 11/27/25 15:48 throat was closing duloxetine Allergy Rash Verified 11/27/25 15:48 gabapentin AdvReac Gastrointestinal Verified 11/27/25 15:48 Upset Exam Vital Signs (past 8 hours): - 11/27/25 21:45 11/27/25 21:45 11/27/25 22:00 Temperature Pulse Rate 112 H Respiratory Rate 25 H Blood Pressure 123/60 137/67 Pulse Oximetry 97 Oxygen Delivery Method Oxygen Flow Rate 11/27/25 22:00 11/27/25 22:15 11/27/25 22:15 Temperature Pulse Rate 116 H 115 H Respiratory Rate 40 H 51 H Blood Pressure 146/67 H Pulse Oximetry 97 99 Oxygen Delivery Method Oxygen Flow Rate 11/27/25 22:30 11/27/25 22:30 11/27/25 22:45 Temperature Pulse Rate 117 H Respiratory Rate 30 H Blood Pressure 142/63 H 150/67 H Pulse Oximetry 98 Oxygen Delivery Method Oxygen Flow Rate 11/27/25 22:45 11/27/25 23:00 11/27/25 23:00 Temperature Pulse Rate 113 H 113 H Respiratory Rate 41 H 45 H Blood Pressure 141/67 H Pulse Oximetry 97 97 Oxygen Delivery Method Oxygen Flow Rate 11/27/25 23:16 11/27/25 23:16 11/27/25 23:30 Temperature Pulse Rate 113 H 107 H Respiratory Rate 29 H 25 H Blood Pressure 130/84 Pulse Oximetry 99 97 Oxygen Delivery Method Oxygen Flow Rate 11/27/25 23:31 11/27/25 23:31 11/27/25 23:46 Temperature Pulse Rate 107 H 114 H Respiratory Rate 33 H 49 H Blood Pressure 121/75 Pulse Oximetry 97 99 Oxygen Delivery Method Room Air Oxygen Flow Rate 11/27/25 23:46 11/28/25 00:00 11/28/25 00:00 Temperature Pulse Rate 107 H Respiratory Rate 37 H Blood Pressure 154/74 H 166/74 H Pulse Oximetry 96 Oxygen Delivery Method Oxygen Flow Rate 11/28/25 00:15 11/28/25 00:15 11/28/25 00:30 Temperature Pulse Rate 106 H 105 H Respiratory Rate 42 H 26 H Blood Pressure 168/79 H Pulse Oximetry 97 97 Oxygen Delivery Method Oxygen Flow Rate 11/28/25 00:45 11/28/25 00:45 11/28/25 01:00 Temperature Pulse Rate 102 H Respiratory Rate 30 H Blood Pressure 139/77 152/78 H Pulse Oximetry 97 Oxygen Delivery Method Oxygen Flow Rate 11/28/25 01:00 11/28/25 01:16 11/28/25 01:16 Temperature Pulse Rate 109 H 105 H Respiratory Rate 18 28 H Blood Pressure 153/70 H Pulse Oximetry 100 99 Oxygen Delivery Method Oxygen Flow Rate 11/28/25 01:35 11/28/25 01:37 11/28/25 01:37 Temperature Pulse Rate 104 H 98 H Respiratory Rate 32 H 23 Blood Pressure 161/74 H Pulse Oximetry 99 99 Oxygen Delivery Method Oxygen Flow Rate 11/28/25 01:45 11/28/25 01:45 11/28/25 02:00 Temperature Pulse Rate 95 H Respiratory Rate 51 H Blood Pressure 161/72 H 161/74 H Pulse Oximetry 98 Oxygen Delivery Method Oxygen Flow Rate 11/28/25 02:00 11/28/25 02:15 11/28/25 02:15 Temperature Pulse Rate 89 90 Respiratory Rate 35 H 38 H Blood Pressure 153/65 H Pulse Oximetry 98 98 Oxygen Delivery Method Oxygen Flow Rate 11/28/25 02:30 11/28/25 02:30 11/28/25 02:45 Temperature Pulse Rate 94 H 92 H Respiratory Rate 36 H 35 H Blood Pressure 157/74 H Pulse Oximetry 99 98 Oxygen Delivery Method Room Air Oxygen Flow Rate 11/28/25 02:45 11/28/25 03:00 11/28/25 03:00 Temperature Pulse Rate 95 H Respiratory Rate 21 Blood Pressure 140/61 144/66 H Pulse Oximetry 98 Oxygen Delivery Method Oxygen Flow Rate 11/28/25 03:15 11/28/25 03:15 11/28/25 03:30 Temperature Pulse Rate 89 Respiratory Rate 21 Blood Pressure 139/57 L 140/71 Pulse Oximetry 97 Oxygen Delivery Method Room Air Oxygen Flow Rate 11/28/25 03:30 11/28/25 03:45 11/28/25 03:45 Temperature Pulse Rate 91 H 87 Respiratory Rate 31 H 21 Blood Pressure 144/68 H Pulse Oximetry 98 97 Oxygen Delivery Method Oxygen Flow Rate 11/28/25 04:00 11/28/25 04:00 11/28/25 04:15 Temperature Pulse Rate 83 Respiratory Rate 20 Blood Pressure 151/70 H 138/60 Pulse Oximetry 96 Oxygen Delivery Method Oxygen Flow Rate 11/28/25 04:15 11/28/25 04:30 11/28/25 04:30 Temperature Pulse Rate 83 81 Respiratory Rate 19 18 Blood Pressure 169/76 H Pulse Oximetry 96 96 Oxygen Delivery Method Oxygen Flow Rate 11/28/25 04:43 11/28/25 04:43 11/28/25 04:45 Temperature Pulse Rate 93 H Respiratory Rate 29 H Blood Pressure 177/75 H 170/72 H Pulse Oximetry 99 Oxygen Delivery Method Oxygen Flow Rate 11/28/25 04:45 11/28/25 05:00 11/28/25 05:00 Temperature Pulse Rate 92 H 81 Respiratory Rate 23 24 Blood Pressure 164/70 H Pulse Oximetry 98 99 Oxygen Delivery Method Oxygen Flow Rate 11/28/25 05:27 Temperature 98.4 F Pulse Rate 92 H Respiratory Rate 34 H Blood Pressure 187/82 H Pulse Oximetry 97 Oxygen Delivery Method Oxygen Flow Rate 0 Oxygen Delivery Method Room Air Oxygen Flow Rate 0 Narrative Exam Narrative: Physical Exam: GENERAL: The patient is not in any acute distressed. Awake and alert. HEENT: Nonicteric sclerae, PERRLA, EOMI. Oropharynx clear. Moist mucous membranes. Conjunctivae appear well perfused. HEART: Regular rate and rhythm without murmurs. No lower extremities edema. LUNGS: Clear to auscultation bilaterally. No wheezing, crackles or rhonchi ABDOMEN: Soft, positive bowel sounds, nontender. SKIN: No rash, no excessive bruising, petechiae, or purpura. NEUROLOGIC: AxO x 3. Cranial nerves II-XII intact without motor/sensory deficit. Objective Labs 11/27/25 16:08 11/27/25 16:08 Labs: Laboratory Results - last 24 hr 11/27/25 11/27/25 11/27/25 16:08 16:18 20:53 WBC 11.2 H RBC 4.25 Hgb 11.8 L Hct 36.5 MCV 86.0 MCH 27.9 MCHC 32.4 RDW 13.9 Plt Count 372 Neut % (Auto) 77.6 H Lymph % (Auto) 14.9 L [place] % (Auto) 7.0 Eos % (Auto) 0.0 L Baso % (Auto) 0.5 Neut # (Auto) 8700 H Lymph # (Auto) 1700 [place] # (Auto) 800 Eos # (Auto) 0 Baso # (Auto) 100 PT 10.2 INR 0.9 APTT 25 L VBG pH VBG pCO2 VBG pO2 VBG HCO3 VBG Total CO2 VBG O2 Saturation VBG Base Excess FiO2 % Sodium 138 Potassium 3.9 Chloride 101 Carbon Dioxide 28 BUN 20 H Creatinine 0.62 Estimated GFR > 60 BUN/Creatinine Ratio 32.3 H Glucose 129 H POC Whole Bld Glucose 165 H Calcium 8.9 Magnesium 2.1 Total Bilirubin 0.4 AST 30 ALT 58 H Alkaline Phosphatase 90 Total Creatine Kinase 30 Troponin I < 0.012 NT-Pro-B Natriuret Pep 91 Total Protein 7.2 Albumin 4.5 Globulin 2.7 Albumin/Globulin Ratio 1.7 Lipase 37 Chlamy pneumoniae PCR Not detected Adenovirus (PCR) Not detected B. pertussis DNA (PCR) Not detected B.parapertussis DNA PCR Not detected Coronavirus OC43 (PCR) Not detected Coronavirus HKU1 (PCR) Not detected Coronavirus 229E (PCR) Not detected SARS-CoV-2 (PCR) Not detected Coronavirus NL63 (PCR) Not detected Human Metapneumovir PCR Not detected Influenza Type A (PCR) Not detected Influenza Type B (PCR) Not detected M. pneumoniae (PCR) Not detected Parainfluenza 1 (PCR) Not detected Parainfluenza 2 (PCR) Not detected Parainfluenza 3 (PCR) Not detected Parainfluenza 4 (PCR) Not detected RSV (PCR) Not detected Entero/Rhino (PCR) Not detected 11/27/25 11/27/25 22:05 23:12 WBC RBC Hgb Hct MCV MCH MCHC RDW Plt Count Neut % (Auto) Lymph % (Auto) [place] % (Auto) Eos % (Auto) Baso % (Auto) Neut # (Auto) Lymph # (Auto) [place] # (Auto) Eos # (Auto) Baso # (Auto) PT INR APTT VBG pH 7.40 VBG pCO2 41.8 L VBG pO2 48 H VBG HCO3 26 VBG Total CO2 25 VBG O2 Saturation 83 H VBG Base Excess 0.7 FiO2 % 21.0 % Sodium Potassium Chloride Carbon Dioxide BUN Creatinine Estimated GFR BUN/Creatinine Ratio Glucose POC Whole Bld Glucose Calcium Magnesium Total Bilirubin AST ALT Alkaline Phosphatase Total Creatine Kinase Troponin I NT-Pro-B Natriuret Pep Total Protein Albumin Globulin Albumin/Globulin Ratio Lipase Chlamy pneumoniae PCR Not detected Adenovirus (PCR) Not detected B. pertussis DNA (PCR) Not detected B.parapertussis DNA PCR Not detected Coronavirus OC43 (PCR) Not detected Coronavirus HKU1 (PCR) Not detected Coronavirus 229E (PCR) Not detected SARS-CoV-2 (PCR) Not detected Coronavirus NL63 (PCR) Not detected Human Metapneumovir PCR Not detected Influenza Type A (PCR) Not detected Influenza Type B (PCR) Not detected M. pneumoniae (PCR) Not detected Parainfluenza 1 (PCR) Not detected Parainfluenza 2 (PCR) Not detected Parainfluenza 3 (PCR) Not detected Parainfluenza 4 (PCR) Not detected RSV (PCR) Not detected Entero/Rhino (PCR) Not detected Assessment & Plan Assessment & Plan narrative: COPD exacerbation. Admit the patient to medical observation. Of note the patient does not require oxygen and does not have pneumonia at this time. Continue Solu-Medrol DuoNebs and oxygen if needed. Recent fall. No serious injury. Pain control. Hypertension. Monitor blood pressure and resume home medication accordingly. Tpi-pvxurbm-hsiznibew diabetes. Monitor glucose and will give subcu insulin as needed. Depression and anxiety. Resume home medication. DVT prophylaxis SCDs due to observational status. CODE STATUS full code. Disposition likely home in 1 to 2 days. - As the provider of this telehealth evaluation, requested by the patient's evaluating physician, I attest that I introduced myself to the patient, provided my credentials and determined that telemedicine via a real-time, 2 way interactive audio and video platform is an appropriate and effective means of providing this service. - I reviewed the patient's chart and had a discussion with the member of the patient's treatment team. - The patient and I mutually agreed with continuation of this evaluation via telemedicine. The patient consented for the telemedicine evaluation. - This virtual encounter was taken place from [place] by Dr. Balwinder Franklin. The patient was evaluated at [facility]. The encounter was approximately 35 minutes. The nurse was present during the entire time of the encounter and was able assists with the stethoscope to listen to the patients. Time-Based Coding :: [TOTAL MINUTES] spent with patient and on the chart (including review of chart, obtaining history, exam, reviewing outside data, placing orders, documenting exam and treatment plan, and counseling patient) on [DATE].
[2025-11-28 06:04] LABS: Add Manual Diff / Slide Review NO; Hematocrit 34.0 % (36-46); Hemoglobin 11.0 g/dL (12.0-16.0); Lymphocytes Absolute Auto 1400 /uL (1100-4500); Mean Corpuscular HGB Conc 32.3 % (30-36); Mean Corpuscular Hemoglobin 27.7 PG (26-34); Mean Corpuscular Volume 85.7 fL (80-100); Platelet Count 338 X10^3/uL (150-400)
--- NOTE | 2025-11-28 06:38 | PC.ADMIT ---
[email or web address] POLY ROBERTO Admission Note: The patient,Cira Stafford,65 y/o, was given written information regarding hospital policies, unit procedures and contact persons. Patient's smoking status: Former smoker. Vital Signs - 8 hr 11/27/25 22:45 11/27/25 22:45 11/27/25 23:00 Temperature Pulse Rate 113 H Respiratory Rate 41 H Blood Pressure 150/67 H 141/67 H Pulse Oximetry 97 Oxygen Delivery Method Oxygen Flow Rate 11/27/25 23:00 11/27/25 23:16 11/27/25 23:16 Temperature Pulse Rate 113 H 113 H Respiratory Rate 45 H 29 H Blood Pressure 130/84 Pulse Oximetry 97 99 Oxygen Delivery Method Oxygen Flow Rate 11/27/25 23:30 11/27/25 23:31 11/27/25 23:31 Temperature Pulse Rate 107 H 107 H Respiratory Rate 25 H 33 H Blood Pressure 121/75 Pulse Oximetry 97 97 Oxygen Delivery Method Oxygen Flow Rate 11/27/25 23:46 11/27/25 23:46 11/28/25 00:00 Temperature Pulse Rate 114 H 107 H Respiratory Rate 49 H 37 H Blood Pressure 154/74 H Pulse Oximetry 99 96 Oxygen Delivery Method Room Air Oxygen Flow Rate 11/28/25 00:00 11/28/25 00:15 11/28/25 00:15 Temperature Pulse Rate 106 H Respiratory Rate 42 H Blood Pressure 166/74 H 168/79 H Pulse Oximetry 97 Oxygen Delivery Method Oxygen Flow Rate 11/28/25 00:30 11/28/25 00:45 11/28/25 00:45 Temperature Pulse Rate 105 H 102 H Respiratory Rate 26 H 30 H Blood Pressure 139/77 Pulse Oximetry 97 97 Oxygen Delivery Method Oxygen Flow Rate 11/28/25 01:00 11/28/25 01:00 11/28/25 01:16 Temperature Pulse Rate 109 H 105 H Respiratory Rate 18 28 H Blood Pressure 152/78 H Pulse Oximetry 100 99 Oxygen Delivery Method Oxygen Flow Rate 11/28/25 01:16 11/28/25 01:35 11/28/25 01:37 Temperature Pulse Rate 104 H Respiratory Rate 32 H Blood Pressure 153/70 H 161/74 H Pulse Oximetry 99 Oxygen Delivery Method Oxygen Flow Rate 11/28/25 01:37 11/28/25 01:45 11/28/25 01:45 Temperature Pulse Rate 98 H 95 H Respiratory Rate 23 51 H Blood Pressure 161/72 H Pulse Oximetry 99 98 Oxygen Delivery Method Oxygen Flow Rate 11/28/25 02:00 11/28/25 02:00 11/28/25 02:15 Temperature Pulse Rate 89 Respiratory Rate 35 H Blood Pressure 161/74 H 153/65 H Pulse Oximetry 98 Oxygen Delivery Method Oxygen Flow Rate 11/28/25 02:15 11/28/25 02:30 11/28/25 02:30 Temperature Pulse Rate 90 94 H Respiratory Rate 38 H 36 H Blood Pressure 157/74 H Pulse Oximetry 98 99 Oxygen Delivery Method Oxygen Flow Rate 11/28/25 02:45 11/28/25 02:45 11/28/25 03:00 Temperature Pulse Rate 92 H Respiratory Rate 35 H Blood Pressure 140/61 144/66 H Pulse Oximetry 98 Oxygen Delivery Method Room Air Oxygen Flow Rate 11/28/25 03:00 11/28/25 03:15 11/28/25 03:15 Temperature Pulse Rate 95 H 89 Respiratory Rate 21 21 Blood Pressure 139/57 L Pulse Oximetry 98 97 Oxygen Delivery Method Room Air Oxygen Flow Rate 11/28/25 03:30 11/28/25 03:30 11/28/25 03:45 Temperature Pulse Rate 91 H Respiratory Rate 31 H Blood Pressure 140/71 144/68 H Pulse Oximetry 98 Oxygen Delivery Method Oxygen Flow Rate 11/28/25 03:45 11/28/25 04:00 11/28/25 04:00 Temperature Pulse Rate 87 83 Respiratory Rate 21 20 Blood Pressure 151/70 H Pulse Oximetry 97 96 Oxygen Delivery Method Oxygen Flow Rate 11/28/25 04:15 11/28/25 04:15 11/28/25 04:30 Temperature Pulse Rate 83 Respiratory Rate 19 Blood Pressure 138/60 169/76 H Pulse Oximetry 96 Oxygen Delivery Method Oxygen Flow Rate 11/28/25 04:30 11/28/25 04:43 11/28/25 04:43 Temperature Pulse Rate 81 93 H Respiratory Rate 18 29 H Blood Pressure 177/75 H Pulse Oximetry 96 99 Oxygen Delivery Method Oxygen Flow Rate 11/28/25 04:45 11/28/25 04:45 11/28/25 05:00 Temperature Pulse Rate 92 H 81 Respiratory Rate 23 24 Blood Pressure 170/72 H Pulse Oximetry 98 99 Oxygen Delivery Method Oxygen Flow Rate 11/28/25 05:00 11/28/25 05:27 11/28/25 06:00 Temperature 98.4 F Pulse Rate 92 H Respiratory Rate 34 H Blood Pressure 164/70 H 187/82 H Pulse Oximetry 97 98 Oxygen Delivery Method Room Air Oxygen Flow Rate 0 0 11/28/25 06:00 Temperature Pulse Rate Respiratory Rate Blood Pressure Pulse Oximetry Oxygen Delivery Method Room Air Oxygen Flow Rate Patient admitted to room 229 at 0505. A/Ox4, intermittent audible wheezing and loose hacking cough, RA SpO2 >96%, able to talk frequently in complete sentences. SR, BP 187/82, MD aware. Bed alarm on, call light within reach.
[2025-11-28] MEDS: guaiFENesin/DM 200 mg/20 mg/10 mL SYRUP 5 ML PO (06:55)
[2025-11-28] MEDS: BENZONATATE 100 MG CAPSULE PO (06:55)
[2025-11-28] MEDS: ALBUTEROL/IPRATROPIUM 3 ML AMPUL INH ×3 (07:22→19:22)
[2025-11-28] MEDS: BUDESONIDE 0.5 MG/2 ML NEB INH ×2 (07:22→19:22)
--- NOTE | 2025-11-28 08:13 | PM.HP.1 ---
History of Present Illness History of Present Illness Date Patient Seen: 11/28/25 Chief complaint: returning, HBP, body aches, cough Narrative: A/P: 1. COPD exacerbation. Admit the patient to medical observation. Of note the patient does not require oxygen and does not have pneumonia at this time. Continue Solu-Medrol DuoNebs and oxygen if needed. 2. Recent fall. No serious injury. Pain control. 3. Hypertension. Monitor blood pressure and resume home medication accordingly. 4. Nua-ldinsvi-pwkykiuuf diabetes. Monitor glucose and will give subcu insulin as needed. 5. Depression and anxiety. Resume home medication. PLAN: -IV corticosteroids and bronchodilators. DVT prophylaxis SCDs due to observational status. CODE STATUS full code. Disposition likely home in 1 to 2 days. Summary: From night doctor: 65-year-old female with past medical history of COPD not oxygen dependent, hypertension, hyperlipidemia, vgl-wrxhzzj-npywrokkn diabetes, depression and anxiety presents with shortness of breath. Of note, the patient was recently seen for COPD exacerbation and was given prednisone and inhalers. However despite taking the prednisone as outpatient the patient continued to have shortness of breath and wheezing. The patient also have left-sided chest discomfort the last 2 days. Otherwise the patient denies any fever, chills, nausea, vomiting, diarrhea or syncope. In the emergency room, the patient was hemodynamically stable and was saturating above 92% on room air. CT angio of the chest shows no PE. EKG shows no sign of acute ischemia and troponin was negative. WBC was 11 and other labs were relatively benign. Viral respiratory panel was negative. Due to ongoing shortness of breath and respiratory distress ER physician request admission for IV Solu-Medrol, DuoNebs. Of note the patient also report of a recent fall and had some pain requiring hydrocodone which was given in the ER. S: She was still short of breath and wheezy. Her breathing feels very tight. ROS: All else reviewed and otherwise unremarkable except as noted in the history and physical. O: T 98.4?, BP 187/82, pulse 86, respiration 18, SpO2 97% room air. NAD, alert and oriented. Fluent speech. Lungs are clear, normal rate and effort. Heart is regular, no murmur gallop or rub. Abdomen is soft, non distended. Extremities are free of edema. IMAGING: CXR: No acute cardiopulmonary abnormality is seen. Chest CTA: No pulmonary embolus. No acute cardiopulmonary process. [facility] Medical History DM2 (diabetes mellitus, type 2) Chronic narcotic dependence Insomnia CHF (congestive heart failure) Chronic pain History of CVA (cerebrovascular accident) Myocardial infarction Hepatic steatosis Drug-seeking behavior Seizures Peptic ulcer disease PTSD (post-traumatic stress disorder) Depression Easy bruisability Osteoarthritis GERD (gastroesophageal reflux disease) HLD (hyperlipidemia) HTN (hypertension) Asthma Hearing loss Prediabetes Other chronic pain Tinea pedis Pain in right hip Anxiety Coronary artery disease COPD (chronic obstructive pulmonary disease) Stroke (1999) Surgical History Hx of colonoscopy Hx of tonsillectomy History of surgery on wrist History of bilateral knee replacement Social History household members: none Smoking Status: Former smoker alcohol intake: former Meds Home Medications and Allergies Home Medications ?Medication ?Instructions ?Recorded ?Confirmed ?Type albuterol sulfate 90 mcg/actuation 2 puff inhalation Q4H PRN Wheezing 11/26/24 11/28/25 History aerosol inhaler benzonatate 100 mg capsule 100 mg PO TID PRN Cough #60 caps 08/22/25 11/28/25 Rx atorvastatin 40 mg tablet 80 mg (2 x 40 mg) PO BEDTIME #90 08/30/25 11/28/25 Rx tabs carvedilol 3.125 mg tablet 3.125 mg PO BID #180 tabs 08/30/25 11/28/25 Rx clopidogrel 75 mg tablet 75 mg PO DAILY #90 tabs 08/30/25 11/28/25 Rx cyclobenzaprine 10 mg tablet 10 mg PO TID PRN muscle spasm #90 08/30/25 11/28/25 Rx tabs hydrochlorothiazide 25 mg tablet 25 mg PO DAILY #90 tabs 08/30/25 11/28/25 Rx hydroxyzine HCl 25 mg tablet 25 mg PO TID PRN Anxiety #60 tabs 08/30/25 11/28/25 Rx ipratropium bromide 21 mcg (0.03 2 spray intranasal BID #30 mL 08/30/25 11/28/25 Rx %) nasal spray lidocaine 5 % topical patch 1 patch topical DAILY PRN Pain #30 08/30/25 11/28/25 Rx ea losartan 100 mg tablet 100 mg PO QAM #90 tabs 08/30/25 11/28/25 Rx metformin 500 mg tablet,extended 500 mg PO DAILY #90 tabs 08/30/25 11/28/25 Rx release 24 hr sertraline 50 mg tablet 50 mg PO QAM #90 tabs 08/30/25 11/28/25 Rx trazodone 50 mg tablet 50 mg PO ONCE PM #90 tabs 08/30/25 11/28/25 Rx fluticasone furoate 200 1 inh inhalation DAILY #60 ea 09/25/25 11/28/25 Rx mcg-vilanterol 25 mcg/dose inhalation powder (Breo Ellipta) blood sugar diagnostic (True #100 ea 10/02/25 11/28/25 Rx Metrix Glucose Test Strip) glucose test strips #400 ea 10/02/25 11/28/25 Rx naloxone 4 mg/actuation nasal 4 mg intranasal Q2M PRN opioid 10/31/25 11/28/25 Rx spray (Narcan) overdose #2 ea oxycodone-acetaminophen 5 mg-325 1 tab PO Q4-6H PRN pain #16 tabs 10/31/25 11/28/25 Rx mg tablet (Percocet) amlodipine 5 mg tablet 5 mg PO DAILY #90 tabs 11/02/25 11/28/25 Rx cilostazol 50 mg tablet 100 mg (2 x 50 mg) PO BID #60 tabs 11/02/25 11/28/25 Rx lorazepam 0.5 mg tablet 0.5 mg PO .q4 hours PRN anxiety 11/21/25 11/28/25 Rx #15 tabs oxycodone-acetaminophen 5 mg-325 1 tab PO Q4H PRN pain #15 tabs 11/21/25 11/28/25 Rx mg tablet (Percocet) prednisone 20 mg tablet See Rx Instructions .Route 11/21/25 11/28/25 Rx .COMPLEX #30 tabs Allergies Allergy/AdvReac Type Severity Reaction Status Date / Time aspirin (ASPIRIN) Allergy Severe Throat Verified 11/27/25 15:48 closes, eye itching, difficulty breathing buprenorphine (From Suboxone) Allergy Severe Throat Verified 11/27/25 15:48 closing, vomiting ibuprofen (IBUPROFEN) Allergy Severe Throat Verified 11/27/25 15:48 closes, eye itching, difficulty breathing ketorolac (From TORADOL) Allergy Severe Throat Verified 11/27/25 15:48 closes, eye itching, difficulty breathing methadone Allergy Severe Hard time Verified 11/27/25 15:48 breathing, my vital signs were dropping naloxone (From Suboxone) Allergy Severe Throat Verified 11/27/25 15:48 closing, vomiting NSAIDS (Non-Steroidal Allergy Severe Throat Verified 11/17/25 17:05 Anti-Inflamma closes, eye itching, difficulty breathing tramadol (TRAMADOL) Allergy Severe Rash, my Verified 11/27/25 15:48 throat was closing duloxetine Allergy Rash Verified 11/27/25 15:48 gabapentin AdvReac Gastrointestinal Verified 11/27/25 15:48 Upset Exam Vital Signs (past 8 hours): - 11/28/25 00:15 11/28/25 00:15 11/28/25 00:30 Temperature Pulse Rate 106 H 105 H Respiratory Rate 42 H 26 H Blood Pressure 168/79 H Pulse Oximetry 97 97 Oxygen Delivery Method Oxygen Flow Rate Fraction of Inspired Oxygen 11/28/25 00:45 11/28/25 00:45 11/28/25 01:00 Temperature Pulse Rate 102 H Respiratory Rate 30 H Blood Pressure 139/77 152/78 H Pulse Oximetry 97 Oxygen Delivery Method Oxygen Flow Rate Fraction of Inspired Oxygen 11/28/25 01:00 11/28/25 01:16 11/28/25 01:16 Temperature Pulse Rate 109 H 105 H Respiratory Rate 18 28 H Blood Pressure 153/70 H Pulse Oximetry 100 99 Oxygen Delivery Method Oxygen Flow Rate Fraction of Inspired Oxygen 11/28/25 01:35 11/28/25 01:37 11/28/25 01:37 Temperature Pulse Rate 104 H 98 H Respiratory Rate 32 H 23 Blood Pressure 161/74 H Pulse Oximetry 99 99 Oxygen Delivery Method Oxygen Flow Rate Fraction of Inspired Oxygen 11/28/25 01:45 11/28/25 01:45 11/28/25 02:00 Temperature Pulse Rate 95 H Respiratory Rate 51 H Blood Pressure 161/72 H 161/74 H Pulse Oximetry 98 Oxygen Delivery Method Oxygen Flow Rate Fraction of Inspired Oxygen 11/28/25 02:00 11/28/25 02:15 11/28/25 02:15 Temperature Pulse Rate 89 90 Respiratory Rate 35 H 38 H Blood Pressure 153/65 H Pulse Oximetry 98 98 Oxygen Delivery Method Oxygen Flow Rate Fraction of Inspired Oxygen 11/28/25 02:30 11/28/25 02:30 11/28/25 02:45 Temperature Pulse Rate 94 H 92 H Respiratory Rate 36 H 35 H Blood Pressure 157/74 H Pulse Oximetry 99 98 Oxygen Delivery Method Room Air Oxygen Flow Rate Fraction of Inspired Oxygen 11/28/25 02:45 11/28/25 03:00 11/28/25 03:00 Temperature Pulse Rate 95 H Respiratory Rate 21 Blood Pressure 140/61 144/66 H Pulse Oximetry 98 Oxygen Delivery Method Oxygen Flow Rate Fraction of Inspired Oxygen 11/28/25 03:15 11/28/25 03:15 11/28/25 03:30 Temperature Pulse Rate 89 Respiratory Rate 21 Blood Pressure 139/57 L 140/71 Pulse Oximetry 97 Oxygen Delivery Method Room Air Oxygen Flow Rate Fraction of Inspired Oxygen 11/28/25 03:30 11/28/25 03:45 11/28/25 03:45 Temperature Pulse Rate 91 H 87 Respiratory Rate 31 H 21 Blood Pressure 144/68 H Pulse Oximetry 98 97 Oxygen Delivery Method Oxygen Flow Rate Fraction of Inspired Oxygen 11/28/25 04:00 11/28/25 04:00 11/28/25 04:15 Temperature Pulse Rate 83 Respiratory Rate 20 Blood Pressure 151/70 H 138/60 Pulse Oximetry 96 Oxygen Delivery Method Oxygen Flow Rate Fraction of Inspired Oxygen 11/28/25 04:15 11/28/25 04:30 11/28/25 04:30 Temperature Pulse Rate 83 81 Respiratory Rate 19 18 Blood Pressure 169/76 H Pulse Oximetry 96 96 Oxygen Delivery Method Oxygen Flow Rate Fraction of Inspired Oxygen 11/28/25 04:43 11/28/25 04:43 11/28/25 04:45 Temperature Pulse Rate 93 H Respiratory Rate 29 H Blood Pressure 177/75 H 170/72 H Pulse Oximetry 99 Oxygen Delivery Method Oxygen Flow Rate Fraction of Inspired Oxygen 11/28/25 04:45 11/28/25 05:00 11/28/25 05:00 Temperature Pulse Rate 92 H 81 Respiratory Rate 23 24 Blood Pressure 164/70 H Pulse Oximetry 98 99 Oxygen Delivery Method Oxygen Flow Rate Fraction of Inspired Oxygen 11/28/25 05:27 11/28/25 06:00 11/28/25 06:00 Temperature 98.4 F Pulse Rate 92 H Respiratory Rate 34 H Blood Pressure 187/82 H Pulse Oximetry 97 98 Oxygen Delivery Method Room Air Room Air Oxygen Flow Rate 0 0 Fraction of Inspired Oxygen 11/28/25 07:00 11/28/25 07:26 Temperature Pulse Rate 86 Respiratory Rate 18 Blood Pressure Pulse Oximetry 97 Oxygen Delivery Method Room Air Room Air Oxygen Flow Rate Fraction of Inspired Oxygen 21 Fraction of Inspired Oxygen 21 SaO2/FiO2 Ratio 461 Oxygen Delivery Method Room Air Oxygen Flow Rate 0 Objective Labs 11/28/25 10:30 11/28/25 05:53 Labs: Laboratory Results - last 24 hr 11/27/25 11/27/25 11/27/25 16:08 16:18 20:53 WBC 11.2 H RBC 4.25 Hgb 11.8 L Hct 36.5 MCV 86.0 MCH 27.9 MCHC 32.4 RDW 13.9 Plt Count 372 Neut % (Auto) 77.6 H Lymph % (Auto) 14.9 L Kleberg % (Auto) 7.0 Eos % (Auto) 0.0 L Baso % (Auto) 0.5 Neut # (Auto) 8700 H Lymph # (Auto) 1700 [place] # (Auto) 800 Eos # (Auto) 0 Baso # (Auto) 100 PT 10.2 INR 0.9 APTT 25 L VBG pH VBG pCO2 VBG pO2 VBG HCO3 VBG Total CO2 VBG O2 Saturation VBG Base Excess FiO2 % Sodium 138 Potassium 3.9 Chloride 101 Carbon Dioxide 28 BUN 20 H Creatinine 0.62 Estimated GFR > 60 BUN/Creatinine Ratio 32.3 H Glucose 129 H POC Whole Bld Glucose 165 H Calcium 8.9 Magnesium 2.1 Total Bilirubin 0.4 AST 30 ALT 58 H Alkaline Phosphatase 90 Total Creatine Kinase 30 Troponin I < 0.012 NT-Pro-B Natriuret Pep 91 Total Protein 7.2 Albumin 4.5 Globulin 2.7 Albumin/Globulin Ratio 1.7 Lipase 37 Chlamy pneumoniae PCR Not detected Adenovirus (PCR) Not detected B. pertussis DNA (PCR) Not detected B.parapertussis DNA PCR Not detected Coronavirus OC43 (PCR) Not detected Coronavirus HKU1 (PCR) Not detected Coronavirus 229E (PCR) Not detected SARS-CoV-2 (PCR) Not detected Coronavirus NL63 (PCR) Not detected Human Metapneumovir PCR Not detected Influenza Type A (PCR) Not detected Influenza Type B (PCR) Not detected M. pneumoniae (PCR) Not detected Parainfluenza 1 (PCR) Not detected Parainfluenza 2 (PCR) Not detected Parainfluenza 3 (PCR) Not detected Parainfluenza 4 (PCR) Not detected RSV (PCR) Not detected Entero/Rhino (PCR) Not detected 11/27/25 11/27/25 11/28/25 22:05 23:12 05:53 WBC 12.5 H RBC 3.96 L Hgb 11.0 L Hct 34.0 L MCV 85.7 MCH 27.7 MCHC 32.3 RDW 14.5 Plt Count 338 Neut % (Auto) 82.5 H Lymph % (Auto) 11.4 L Kleberg % (Auto) 5.4 Eos % (Auto) 0.0 L Baso % (Auto) 0.7 Neut # (Auto) 99691 H Lymph # (Auto) 1400 [place] # (Auto) 700 Eos # (Auto) 0 Baso # (Auto) 100 PT INR APTT VBG pH 7.40 VBG pCO2 41.8 L VBG pO2 48 H VBG HCO3 26 VBG Total CO2 25 VBG O2 Saturation 83 H VBG Base Excess 0.7 FiO2 % 21.0 % Sodium Potassium Chloride Carbon Dioxide BUN Creatinine Estimated GFR BUN/Creatinine Ratio Glucose POC Whole Bld Glucose Calcium Magnesium Total Bilirubin AST ALT Alkaline Phosphatase Total Creatine Kinase Troponin I NT-Pro-B Natriuret Pep Total Protein Albumin Globulin Albumin/Globulin Ratio Lipase Chlamy pneumoniae PCR Not detected Adenovirus (PCR) Not detected B. pertussis DNA (PCR) Not detected B.parapertussis DNA PCR Not detected Coronavirus OC43 (PCR) Not detected Coronavirus HKU1 (PCR) Not detected Coronavirus 229E (PCR) Not detected SARS-CoV-2 (PCR) Not detected Coronavirus NL63 (PCR) Not detected Human Metapneumovir PCR Not detected Influenza Type A (PCR) Not detected Influenza Type B (PCR) Not detected M. pneumoniae (PCR) Not detected Parainfluenza 1 (PCR) Not detected Parainfluenza 2 (PCR) Not detected Parainfluenza 3 (PCR) Not detected Parainfluenza 4 (PCR) Not detected RSV (PCR) Not detected Entero/Rhino (PCR) Not detected Assessment & Plan Time-Based Coding :: 35 min spent with patient and on the chart (including review of chart, obtaining history, exam, reviewing outside data, placing orders, documenting exam and treatment plan, and counseling patient) on 11/18. Quality VTE Deep Vein Thrombosis/Pulmonary Embolism Present on Admission: No MIPS - Admit I confirm the patient?s Advance Care Plan is present, Code status is documented, Surrogate decision maker is in patient?s record [If Yes, STOP here]: Yes MIPS - Meds 'Current medications' to include all prescriptions, [id number] products, herbals, cannabis/cannabidiol products, and vitamin/mineral/dietary (nutritional) supplements. I have utilized all available resources to obtain, update, or review the patient?s current medications. [If Yes, STOP here]: Yes
[2025-11-28 08:20] LABS: Blood Urea Nitrogen 18 mg/dL (7-17); Calcium 9.0 mg/dL (8.4-10.2); Carbon Dioxide 27 mmol/L (22-32); Chloride 101 mmol/L (98-107); Estimated Glomerular Filt Rate > 60 mL/min (>60); Glucose 146 mg/dL (70-99); HEMOLYSIS < 15 (0-50); Potassium 3.9 mmol/L (3.4-5.1); Sodium 136 mmol/L (137-145)
[2025-11-28] MEDS: SERTRALINE 50 MG TABLET PO (08:29)
[2025-11-28] MEDS: CLOPIDOGREL 75 MG TABLET PO (08:30)
[2025-11-28] MEDS: ACETAMINOPHEN 325 MG TABLET 650 MG PO (08:30)
[2025-11-28] MEDS: SODIUM CHLORIDE 0.9% FLUSH 10 ML IV ×2 (08:36→20:09)
[2025-11-28 10:37] LABS: Add Manual Diff / Slide Review NO; Hematocrit 32.7 % (36-46); Hemoglobin 10.8 g/dL (12.0-16.0); Lymphocytes Absolute Auto 900 /uL (1100-4500); Mean Corpuscular HGB Conc 33.1 % (30-36); Mean Corpuscular Hemoglobin 28.2 PG (26-34); Mean Corpuscular Volume 85.1 fL (80-100); Platelet Count 312 X10^3/uL (150-400)
[2025-11-28] MEDS: CYCLOBENZAPRINE 10 MG TABLET PO ×2 (11:30→19:57)
[2025-11-28] MEDS: LOSARTAN 50 MG TABLET 100 MG PO (11:31)
[2025-11-28 13:49] LABS: Add Manual Diff / Slide Review NO; Hematocrit 37.5 % (36-46); Hemoglobin 12.2 g/dL (12.0-16.0); Lymphocytes Absolute Auto 700 /uL (1100-4500); Mean Corpuscular HGB Conc 32.5 % (30-36); Mean Corpuscular Hemoglobin 28.2 PG (26-34); Mean Corpuscular Volume 86.7 fL (80-100); Platelet Count 343 X10^3/uL (150-400)
[2025-11-28 18:17] LABS: Add Manual Diff / Slide Review NO; Hematocrit 36.2 % (36-46); Hemoglobin 11.6 g/dL (12.0-16.0); Lymphocytes Absolute Auto 1300 /uL (1100-4500); Mean Corpuscular HGB Conc 32.2 % (30-36); Mean Corpuscular Hemoglobin 27.6 PG (26-34); Mean Corpuscular Volume 85.9 fL (80-100); Platelet Count 355 X10^3/uL (150-400)
[2025-11-28] MEDS: ATORVASTATIN 20 MG TABLET 80 MG PO (20:09)
[2025-11-28 22:09] LABS: Add Manual Diff / Slide Review NO; Hematocrit 33.0 % (36-46); Hemoglobin 10.7 g/dL (12.0-16.0); Lymphocytes Absolute Auto 2100 /uL (1100-4500); Mean Corpuscular HGB Conc 32.6 % (30-36); Mean Corpuscular Hemoglobin 28.0 PG (26-34); Mean Corpuscular Volume 85.8 fL (80-100); Platelet Count 312 X10^3/uL (150-400)
[2025-11-29 03:00] VITALS: BP 129/60; PULSE 81; RESP 22; TEMP 36.5; O2SAT 95
[2025-11-29] MEDS: ALBUTEROL/IPRATROPIUM 3 ML AMPUL INH (07:37)
[2025-11-29] MEDS: BUDESONIDE 0.5 MG/2 ML NEB INH (07:37)
[2025-11-29 07:38] VITALS: PULSE 82; RESP 18; O2SAT 97
--- NOTE | 2025-11-29 07:49 | PM.PN.1 ---
Subjective Subjective Interval history: A/P: 1. COPD exacerbation. 2. Recent fall. 3. Hypertension. Monitor blood pressure and resume home medication accordingly. 4. Pee-ufsejoa-jmcuhexhw diabetes. 5. Depression and anxiety. PLAN: -continue IV antibiotics and corticosteroids. -bronchodilators. -monitor breathing. DVT prophylaxis SCDs due to observational status. CODE STATUS full code. Disposition likely home in 1 to 2 days. Summary: From night doctor: 65-year-old female with past medical history of COPD not oxygen dependent, hypertension, hyperlipidemia, pbu-wvypxem-rnxpkcudm diabetes, depression and anxiety presents with shortness of breath. Of note, the patient was recently seen for COPD exacerbation and was given prednisone and inhalers. However despite taking the prednisone as outpatient the patient continued to have shortness of breath and wheezing. The patient also have left-sided chest discomfort the last 2 days. Otherwise the patient denies any fever, chills, nausea, vomiting, diarrhea or syncope. In the emergency room, the patient was hemodynamically stable and was saturating above 92% on room air. CT angio of the chest shows no PE. EKG shows no sign of acute ischemia and troponin was negative. WBC was 11 and other labs were relatively benign. Viral respiratory panel was negative. Due to ongoing shortness of breath and respiratory distress ER physician request admission for IV Solu-Medrol, DuoNebs. Of note the patient also report of a recent fall and had some pain requiring hydrocodone which was given in the ER. S: O: T 97.7?, BP 129/60, pulse 82, respiration 18, SpO2 97% room air NAD, alert and oriented. Fluent speech. Lungs are clear, normal rate and effort. Heart is regular, no murmur gallop or rub. Abdomen is soft, non distended. Extremities are free of edema. Exam Vital Signs (past 8 hours): - 11/29/25 03:00 11/29/25 07:38 Temperature 97.7 F Pulse Rate 81 82 Respiratory Rate 22 18 Blood Pressure 129/60 Pulse Oximetry 95 97 Oxygen Delivery Method Room Air Oxygen Flow Rate 0 Fraction of Inspired Oxygen 21 Fraction of Inspired Oxygen 21 SaO2/FiO2 Ratio 461 Oxygen Delivery Method Room Air Oxygen Flow Rate 0 Objective Labs 11/28/25 22:00 11/28/25 05:53 Labs: Laboratory Results - last 24 hr 11/28/25 11/28/25 11/28/25 05:53 10:30 11:37 WBC 10.9 RBC 3.84 L Hgb 10.8 L Hct 32.7 L MCV 85.1 MCH 28.2 MCHC 33.1 RDW 14.3 Plt Count 312 Neut % (Auto) 84.6 H Lymph % (Auto) 8.4 L [place]cl[place]an % (Auto) 6.2 Eos % (Auto) 0.2 L Baso % (Auto) 0.6 Neut # (Auto) 9200 H Lymph # (Auto) 900 L [place] # (Auto) 700 Eos # (Auto) 0 Baso # (Auto) 100 Sodium 136 L Potassium 3.9 Chloride 101 Carbon Dioxide 27 BUN 18 H Creatinine 0.52 Estimated GFR > 60 BUN/Creatinine Ratio 34.6 H Glucose 146 H POC Whole Bld Glucose 141 H Calcium 9.0 11/28/25 11/28/25 11/28/25 13:40 16:46 18:06 WBC 10.7 11.7 H RBC 4.33 4.21 Hgb 12.2 11.6 L Hct 37.5 36.2 MCV 86.7 85.9 MCH 28.2 27.6 MCHC 32.5 32.2 RDW 14.5 14.3 Plt Count 343 355 Neut % (Auto) 91.6 H 83.5 H Lymph % (Auto) 6.6 L 10.8 L [place] % (Auto) 1.5 L 5.1 Eos % (Auto) 0.0 L 0.1 L Baso % (Auto) 0.3 0.5 Neut # (Auto) 9800 H 9800 H Lymph # (Auto) 700 L 1300 [place] # (Auto) 200 600 Eos # (Auto) 0 0 Baso # (Auto) 0 100 Sodium Potassium Chloride Carbon Dioxide BUN Creatinine Estimated GFR BUN/Creatinine Ratio Glucose POC Whole Bld Glucose 193 H Calcium 11/28/25 11/28/25 11/29/25 20:46 22:00 07:36 WBC 11.5 H RBC 3.84 L Hgb 10.7 L Hct 33.0 L MCV 85.8 MCH 28.0 MCHC 32.6 RDW 14.3 Plt Count 312 Neut % (Auto) 72.9 Lymph % (Auto) 18.5 L [place] % (Auto) 8.0 Eos % (Auto) 0.3 L Baso % (Auto) 0.3 Neut # (Auto) 8400 H Lymph # (Auto) 2100 [place] # (Auto) 900 Eos # (Auto) 0 Baso # (Auto) 0 Sodium Potassium Chloride Carbon Dioxide BUN Creatinine Estimated GFR BUN/Creatinine Ratio Glucose POC Whole Bld Glucose 134 H 101 H Calcium PFSH Medical History DM2 (diabetes mellitus, type 2) Chronic narcotic dependence Insomnia CHF (congestive heart failure) Chronic pain History of CVA (cerebrovascular accident) Myocardial infarction Hepatic steatosis Drug-seeking behavior Seizures Peptic ulcer disease PTSD (post-traumatic stress disorder) Depression Easy bruisability Osteoarthritis GERD (gastroesophageal reflux disease) HLD (hyperlipidemia) HTN (hypertension) Asthma Hearing loss Prediabetes Other chronic pain Tinea pedis Pain in right hip Anxiety Coronary artery disease COPD (chronic obstructive pulmonary disease) Stroke (1999) Surgical History Hx of colonoscopy Hx of tonsillectomy History of surgery on wrist History of bilateral knee replacement Social History household members: none Smoking Status: Former smoker alcohol intake: former Assessment & Plan Time-Based Coding :: [TOTAL MINUTES] spent with patient and on the chart (including review of chart, obtaining history, exam, reviewing outside data, placing orders, documenting exam and treatment plan, and counseling patient) on [DATE]. Quality VTE Deep Vein Thrombosis/Pulmonary Embolism Present on Admission: No
[2025-11-29] MEDS: guaiFENesin/DM 200 mg/20 mg/10 mL SYRUP 5 ML PO (08:20)
[2025-11-29] MEDS: BENZONATATE 100 MG CAPSULE PO (08:21)
[2025-11-29] MEDS: CLOPIDOGREL 75 MG TABLET PO (08:21)
[2025-11-29 08:22] VITALS: BP 153/66; PULSE 95
[2025-11-29] MEDS: LOSARTAN 50 MG TABLET 100 MG PO (08:22)
[2025-11-29] MEDS: SERTRALINE 50 MG TABLET PO (08:23)
[2025-11-29] MEDS: SODIUM CHLORIDE 0.9% FLUSH 10 ML IV (08:23)
[2025-11-29 08:38] VITALS: BP 153/66; PULSE 78; RESP 24; O2SAT 99
--- NOTE | 2025-11-29 11:23 | P.DS_ITS ---
History of Present Illness History of Present Illness Chief complaint: returning, HBP, body aches, cough Narrative: A/P: 1. COPD exacerbation. Improved. 2. Recent fall. No serious injury. Improved. 3. Hypertension. Stable. 4. Rrd-lrufkag-rukiprmzf diabetes. Stable. 5. Depression and anxiety. Stable. PLAN: -stable for discharge on oral prednisone. She will also be on doxycycline for several more days and 15. Of Percocet were provided per her request. Close follow up with PCP. Summary: From night doctor: 65-year-old female with past medical history of COPD not oxygen dependent, hypertension, hyperlipidemia, vny-kvtbaas-rbewkhbuh diabetes, depression and anxiety presents with shortness of breath. Of note, the patient was recently seen for COPD exacerbation and was given prednisone and inhalers. However despite taking the prednisone as outpatient the patient continued to have shortness of breath and wheezing. The patient also have left-sided chest discomfort the last 2 days. Otherwise the patient denies any fever, chills, nausea, vomiting, diarrhea or syncope. In the emergency room, the patient was hemodynamically stable and was saturating above 92% on room air. CT angio of the chest shows no PE. EKG shows no sign of acute ischemia and troponin was negative. WBC was 11 and other labs were relatively benign. Viral respiratory panel was negative. Due to ongoing shortness of breath and respiratory distress ER physician request admission for IV Solu-Medrol, DuoNebs. Of note the patient also report of a recent fall and had some pain requiring hydrocodone which was given in the ER. HOSPITAL COURSE: She was treated with enema, and IV echo steroid bronchodilators. She improved over the 48 hours she was in the hospital. DISCHARGE EXAM: O: T 97.7?, BP 153/66, pulse 78, respiration 24, SaO2 99% room air. NAD, alert and oriented. Fluent speech. Lungs with expiratory wheezing but improved, normal rate and effort. Heart is regular, no murmur gallop or rub. Abdomen is soft, non distended. Extremities are free of edema. IMAGING: CXR: No acute cardiopulmonary abnormality is seen. Chest CTA: No pulmonary embolus. No acute cardiopulmonary process. [N], the patient has documentation of a left ventricle ejection fracture less than or equal to 40%, or moderately or severely reduced left ventricle systolic function. [N], the patient has a history of heart transplant or left ventricular assist device (LVAD). [N], the patient was prescribed an RON inhibitor at discharge or is already being taken. The patient was not prescribed an RON-inhibitor because of the following exception: NA [N], the patient was prescribed Metoprolol succinate, bisoprolol, or carvedilol at discharge. The patient was not prescribed Metoprolol succinate, bisoprolol, or carvedilol at discharge because of the following exception: NA Discharge Providers Provider Date of admission: 11/28/25 03:30 Discharge Date: 11/29/25 Primary care physician: Nahomi Hoffman MD Consults: 11/28/25 05:48 Consult to Pastoral Services Routine Comment: Patient request 11/28/25 10:02 Consult to Pharmacy Routine Comment: Hx DM (takes Metformin, in addition to other meds Discharge provider: Rolly Plata MD Summary Status at Discharge Cognitive/behavioral status at discharge: oriented Functional status at discharge: independent ambulation Overall status at discharge: patient is back to baseline Time Spent with Patient Time spent: Greater than 30 minutes Exam Vital Signs (past 8 hours): - 11/29/25 07:38 11/29/25 08:22 11/29/25 08:38 Pulse Rate 82 95 H 78 Respiratory Rate 18 24 Blood Pressure 153/66 H 153/66 H Pulse Oximetry 97 99 Oxygen Delivery Method Room Air Oxygen Flow Rate 0 Fraction of Inspired Oxygen 21 Fraction of Inspired Oxygen 21 SaO2/FiO2 Ratio 461 Oxygen Delivery Method Room Air Oxygen Flow Rate 0 Objective Labs 11/28/25 22:00 11/28/25 05:53 Labs: Laboratory Results - last 24 hr 11/28/25 11/28/25 11/28/25 11:37 13:40 16:46 WBC 10.7 RBC 4.33 Hgb 12.2 Hct 37.5 MCV 86.7 MCH 28.2 MCHC 32.5 RDW 14.5 Plt Count 343 Neut % (Auto) 91.6 H Lymph % (Auto) 6.6 L [place] % (Auto) 1.5 L Eos % (Auto) 0.0 L Baso % (Auto) 0.3 Neut # (Auto) 9800 H Lymph # (Auto) 700 L [place] # (Auto) 200 Eos # (Auto) 0 Baso # (Auto) 0 POC Whole Bld Glucose 141 H 193 H 11/28/25 11/28/25 11/28/25 18:06 20:46 22:00 WBC 11.7 H 11.5 H RBC 4.21 3.84 L Hgb 11.6 L 10.7 L Hct 36.2 33.0 L MCV 85.9 85.8 MCH 27.6 28.0 MCHC 32.2 32.6 RDW 14.3 14.3 Plt Count 355 312 Neut % (Auto) 83.5 H 72.9 Lymph % (Auto) 10.8 L 18.5 L [place] % (Auto) 5.1 8.0 Eos % (Auto) 0.1 L 0.3 L Baso % (Auto) 0.5 0.3 Neut # (Auto) 9800 H 8400 H Lymph # (Auto) 1300 2100 [place] # (Auto) 600 900 Eos # (Auto) 0 0 Baso # (Auto) 100 0 POC Whole Bld Glucose 134 H 11/29/25 07:36 WBC RBC Hgb Hct MCV MCH MCHC RDW Plt Count Neut % (Auto) Lymph % (Auto) [place] % (Auto) Eos % (Auto) Baso % (Auto) Neut # (Auto) Lymph # (Auto) [place] # (Auto) Eos # (Auto) Baso # (Auto) POC Whole Bld Glucose 101 H PFSH Medical History DM2 (diabetes mellitus, type 2) Chronic narcotic dependence Insomnia CHF (congestive heart failure) Chronic pain History of CVA (cerebrovascular accident) Myocardial infarction Hepatic steatosis Drug-seeking behavior Seizures Peptic ulcer disease PTSD (post-traumatic stress disorder) Depression Easy bruisability Osteoarthritis GERD (gastroesophageal reflux disease) HLD (hyperlipidemia) HTN (hypertension) Asthma Hearing loss Prediabetes Other chronic pain Tinea pedis Pain in right hip Anxiety Coronary artery disease COPD (chronic obstructive pulmonary disease) Stroke (1999) Surgical History Hx of colonoscopy Hx of tonsillectomy History of surgery on wrist History of bilateral knee replacement Social History household members: none Smoking Status: Former smoker alcohol intake: former Discharge Plan Discharge Plan Patient Disposition: Home Provider Discharge Comment: Stable for discharge home. Discharge orders & Medications Prescriptions: New prednisone 50 mg tablet 50 mg PO DAILY Qty: 5 0RF doxycycline hyclate 100 mg tablet 100 mg PO BID Qty: 10 0RF prednisone 50 mg tablet 50 mg PO DAILY Qty: 5 0RF doxycycline hyclate 100 mg capsule 100 mg PO BID Qty: 10 0RF oxycodone-acetaminophen [Percocet] 5-325 mg tablet 1 tab PO Q8H PRN (Reason: pain) Qty: 15 0RF Continued (DME) True Metrix Glucose Test Strip Strip See Rx Instructions .Route Qty: 100 2RF Rx Instructions: As directed (DME) glucose test strips See Rx Instructions .ROUTE .MEDSUPPLY Qty: 400 0RF Rx Instructions: to test 4 times daily True Metrix brand cyclobenzaprine 10 mg tablet 10 mg PO TID PRN (Reason: muscle spasm) Qty: 90 2RF atorvastatin 40 mg tablet 80 mg PO BEDTIME Qty: 90 3RF carvedilol 3.125 mg tablet 3.125 mg PO BID Qty: 180 3RF clopidogrel 75 mg tablet 75 mg PO DAILY Qty: 90 3RF Rx Instructions: takes in the evening hydrochlorothiazide 25 mg tablet 25 mg PO DAILY Qty: 90 3RF hydroxyzine HCl 25 mg tablet 25 mg PO TID PRN (Reason: Anxiety) Qty: 60 0RF ipratropium bromide 21 mcg (0.03 %) spray,non-aerosol 2 spray intranasal BID Qty: 30 0RF lidocaine 5 % adhesive patch,medicated 1 patch TOPICAL DAILY PRN (Reason: Pain) Qty: 30 0RF Rx Instructions: leave on most painful area for up to 12 hrs losartan 100 mg tablet 100 mg PO QAM Qty: 90 3RF metformin 500 mg tablet extended release 24 hr 500 mg PO DAILY Qty: 90 3RF sertraline 50 mg tablet 50 mg PO QAM Qty: 90 3RF trazodone 50 mg tablet 50 mg PO ONCE PM Qty: 90 0RF fluticasone furoate-vilanterol [Breo Ellipta] 200-25 mcg/dose blister with device 1 inh inhalation DAILY Qty: 60 0RF amlodipine 5 mg tablet 5 mg PO DAILY Qty: 90 0RF cilostazol 50 mg tablet 100 mg PO BID Qty: 60 2RF naloxone [Narcan] 4 mg/actuation spray,non-aerosol 4 mg intranasal Q2M PRN (Reason: opioid overdose) Qty: 2 0RF Rx Instructions: spray 1 dose into ONE nostril; alternate nostrils w each dose until help arrives albuterol sulfate 90 mcg/actuation HFA aerosol inhaler 2 puff inhalation Q4H PRN (Reason: Wheezing) benzonatate 100 mg Capsule 100 mg PO TID PRN (Reason: Cough) Qty: 60 1RF lorazepam 0.5 mg tablet 0.5 mg PO .q4 hours PRN (Reason: anxiety) Qty: 15 0RF Discontinued oxycodone-acetaminophen [Percocet] 5-325 mg tablet 1 tab PO Q4-6H PRN (Reason: pain) Qty: 16 0RF prednisone 20 mg tablet See Rx Instructions .ROUTE .COMPLEX Qty: 30 0RF Rx Instructions: 3 tablets daily for 5 days, then 2 tablets daily for 5 days, then 1 tablet daily for 5 days oxycodone-acetaminophen [Percocet] 5-325 mg tablet 1 tab PO Q4H PRN (Reason: pain) Qty: 15 0RF Follow up/Referrals: Nahomi Hoffman MD [Primary Care Provider, Family Practice] Diet/Activity/Treatments Diet: Diet as Tolerated Visit Report/Discharge Packet Instructions: DI for Chronic Obstructive Pulmonary Disease Stand Alone Forms: [employer], Patient Portal/API, Influenza Vaccine Info, Notice of Privacy Practices, Inpatient vs Outpatient, Pneumococcal Vaccine Info, Pt. Rights & Responsibilities Discharge Data Primary Care Provider: Nahomi Hoffman Attending Provider: Balwinder Franklin Admit Date/Time: 11/28/25 03:30 Quality VTE Deep Vein Thrombosis/Pulmonary Embolism Present on Admission: No
--- NOTE | 2025-11-29 11:42 | CM.DANOTE ---
DCP Assessment Note pt is a 65yo F here with COPD exacerbation. SENIOR REGULATORY AFFAIRS SPECIALIST reviewed EMR. on room air. tapering IV steroids. per provider, may dc today. SENIOR REGULATORY AFFAIRS SPECIALIST reviewed EMR per previous admissions, gets [facility]Gs, lives alone in [facility], reliant on [facility] For home chores/transport/meal prep. has a walker/scooter at home. SENIOR REGULATORY AFFAIRS SPECIALIST met with pt in room. ambulating indep from bathroom. has transport home. denies other DCP/CM needs at this time. spoke with [facility] Gordillo CM [phone]. updated on plan. will f/u with pt. P: dc home today with [facility] CG support. will continue to follow as needed in case additional DCP needs occur. CHARLY James Discharge Planning/Care Management CM Discharge Assessment Start: 11/28/25 04:09 Freq: Status: Active Protocol: Document 11/29/25 11:39 SL (Rec: 11/29/25 11:41 SL [id number]) Discharge Planning Assessment Assigned Discharge CHARLY Brown Designer/Writer Provider Nahomi Hoffman Insurance Medicaid,Medicare DPOA/Assigned Srikanth dtr Designee Name Contact Information [phone] Advance Directives? Yes, POLST Advance Directives No on File History Provided By Patient,Medical Record Prior Living House Arrangements Household Members none Type of Relies on Others transporation used prior to admit Independent with ADL Yes 's Is patient alert and Yes oriented? Needs Assistance Meal Prep,Managing Medications,Home Chores / Shopping With Comment FWW, cane, and electric scooter Discharge Plan Home Transportation Family/Niece - Naima Davi or Medicaid transport Arrangement Referrals Initiated None needed Additional Comment Pt had poor experience with HH and wants home with her [facility] Review Status In Process Please Provide Date 11/29/25 Initial DC Assessment Was Performed Next Review Type Continued Stay Review
--- NOTE | 2025-11-29 13:26 | PC.NURSE ---
Patient is A&OX4, VSS, afebrile. Slightly hypertensive and all scheduled antihypertensive medication given per JAN. She reports mid sternum chest pain from coughing and requests pain medications this a.m. She is able to ambulate around the room and to the BR independently. Slighty SOB with activity she states but much improved.Slightl expiratory wheezes in upper lobes noted. She reports feeling better and chest congestion is much improved. She is evaluated at bedside by the hospitalist and cleared for discharge home today. Cira acknowledges understanding of medications as well as follow up plan with PCP. She is escorted via w/ch to [facility] with her caregiver who arrived to transport her home at approximately 1310 pm. She has her home meds, IPAD, fan and all of her personal belongings.
== END 2025-11-29 13:10 | disposition home or self-care (01) ==
LOC: ED 11-28 03:27 → AC 11-28 03:30 → ICU 11-28 04:42
PROVIDERS: Student in an Organized Health Care Education/Training Program; Admitting Provider Internal Medicine; Emergency Provider Emergency Medicine; PCP Family Medicine; Visit Provider Internal Medicine
DX: J44.1 Chronic obstructive pulmonary disease with (acute) exacerbation (principal); I10 Essential (primary) hypertension; E11.9 Type 2 diabetes mellitus without complications; F32.A Depression, unspecified; F41.9 Anxiety disorder, unspecified; M25.552 Pain in left hip; R07.9 Chest pain, unspecified; E78.5 Hyperlipidemia, unspecified; W19.XXXA Unspecified fall, initial encounter; Z87.891 Personal history of nicotine dependence; Z79.84 Long term (current) use of oral hypoglycemic drugs; Z79.51 Long term (current) use of inhaled steroids; Z79.02 Long term (current) use of antithrombotics/antiplatelets
CPT/HCPCS: 36415; 71046; 71275; 80048; 80053; 82550; 82805; 82962; 83690; 83735; 83880; 84484; 85025; 85610; 85730; 87633; 93005; 94640; 94644; 96365; 96375; 96376; 99284; 99291; G0378; J1815; J2270; J3475; J7613; Q9967